=== PATIENT | female | born 1935 | race Caucasian/White ===

== ENCOUNTER 2018-03-14 06:45 | Emergency (ER) | payer MEDICARE, SELFPAY ==
[2018-03-14 06:53] VITALS: BP 177/69; PULSE 61; RESP 16; TEMP 36.7; O2SAT 97
--- NOTE | 2018-03-14 07:21 | ED.GENADUL_ITS ---
Discharge Plan Disposition Patient Disposition: HOME Condition: Good Discharge Details Chief Complaint: RashLesion Clinical Impression: Candidal dermatitis Primary Care Provider: Candie Skaggs ED Provider: Rodolfo Morales [place] Meds and New Rx's Prescriptions: New nystatin 100,000 unit/gram cream 1 applic TP BID Qty: 30 RF: 0 Continued hydrochlorothiazide 25 MG tablet 25 mg PO DAILY RF: 0 irbesartan 150 MG tablet 150 mg PO DAILY RF: 0 aspirin [Aspirin Low-Strength] 81 MG tablet,chewable 81 mg PO DAILY RF: 0 potassium chloride [Klor-Con M20] 20 MEQ tablet,ER particles/crystals 20 meq PO DAILY RF: 0 Discharge Instructions Additional Instructions: Since the rash is worse with cortisone cream, it potentially is fungal (candidal) rash. There are no vesicles or pustules to suggest herpes. Does not appear to be a cellulitis. It is not shingles as it is symmetric on both sides of the body. Will try nystatin cream and have you follow-up with primary care this week. Return to ED for worsening rash, pain, fever, other concerns. Referrals: Candie Skaggs [Primary Care Provider] - Medical Decision Making This appears to be dermatitis but has been made worse and spread with hydrocortisone. There are satellite lesions present. There are no new exposures. It is bilateral so it is clearly not shingles. There are no vesicles or pustules. Satellite lesions suggestive of candidal dermatitis. Will discontinue the hydrocortisone and have her try nystatin cream and follow- up with primary care next week. Return to ED for worsening rash, fever, other concerns. HPI General Mode of arrival: ambulatory . Date/Time Provider Initiated Documentation: 03/14/18 07:03 . Limitations to Documentation: no limitations . Information obtained by: patient . HPI Narrative: Patient presents to ED with rash. Rash has been present for little less than a week. Initially started on the lower part of her back but has progressed down to her buttocks and perineal area. She describes it as burning and itching. It is on both sides of her body. She has use hydrocortisone cream which seems to have made it worse not b ivonne. She has no new exposures. There is no new underwear or clothing. She does not feel ill otherwise. There is been no fevers. Related Data Home Medications Medication Instructions Recorded Confirmed hydrochlorothiazide 25 mg PO DAILY 06/17/12 03/14/18 irbesartan 150 mg PO DAILY 06/17/12 03/14/18 aspirin [Aspirin Low-Strength] 81 mg PO DAILY 05/02/17 03/14/18 nystatin 1 applic TP BID #30 gm 03/14/18 potassium chloride [Klor-Con M20] 20 meq PO DAILY 03/14/18 03/14/18 Previous Rx's Medication Instructions Recorded nystatin 1 applic TP BID #30 gm 03/14/18 Allergies Allergy/AdvReac Type Severity Reaction Status Date / Time codeine [Codeine] AdvReac Mild Nausea Unverified 03/14/18 07:01 General Stated Complaint: RashLesion CARMEN: 4 Review of Systems Constitutional Denies chills and Denies fever(s) Integumentary/Breasts Reports rash [facility] Medical History Anxiety Atypical chest pain Barretts esophagus Diverticulitis Dysphagia GERD (gastroesophageal reflux disease) Hyperlipidemia Hypertension Hypokalemia PE (pulmonary embolism) Surgical History Colonoscopy - IV Sedation EGD - MAC (10/26/14) Social History Smoking/Tobacco Use Status: Never Exam Const General: cooperative, comfortable and no acute distress Orientation: alert and oriented x3 Skin Other: Erythematous, maculopapular, flat, dry rash involving small of her back, buttocks, perirectal area. Associated satellite lesions. Not tender to palpation. No vesicles or pustules. Symmetric on both sides. Course Vital Signs Temperature 98.1 F 03/14/18 06:53 Pulse 61 03/14/18 06:53 Respiratory Rate 16 03/14/18 06:53 Blood Pressure 177/69 H 03/14/18 06:53 Pulse Oximetry 97 03/14/18 06:53 Temperature 98.1 F 03/14/18 06:53 Temperature Source Temporal Artery Scan 03/14/18 06:53 Pulse 61 03/14/18 06:53 Respiratory Rate 16 03/14/18 06:53 Respiratory Effort Non-Labored 03/14/18 06:55 Blood Pressure 177/69 H 03/14/18 06:53 Blood Pressure Position Sitting 03/14/18 06:53 Pulse Oximetry 97 03/14/18 06:53 Oxygen Delivery Method Room Air 03/14/18 06:53 Oxygen Flow Rate 0 03/14/18 06:53 Pain Level 5 03/14/18 06:53
== END 2018-03-14 07:31 | disposition home or self-care (01) ==
PROVIDERS: Emergency Provider Emergency Medicine; PCP Family Medicine
DX: B37.2 Candidiasis of skin and nail (principal); I10 Essential (primary) hypertension
CPT/HCPCS: 99283

== ENCOUNTER 2018-03-15 06:44 | Emergency (ER) | payer MEDICARE, SELFPAY ==
[2018-03-15] VITALS (41 sets, daily range): BP systolic 96–156; BP diastolic 34–73; PULSE 53–79; RESP 11–28; TEMP 36.3–36.8; O2SAT 91–99
--- NOTE | 2018-03-15 07:07 | DI.CT_ITS ---
SYMPTOM/DIAGNOSIS: ABDOMINAL PAIN, N&V CT ABDOMEN AND PELVIS: Comparison is made with 17 Jun 2012. Post IV contrast exam was performed. There is a small pericardial effusion, larger than on previous exam. There are mild dependent changes at the lung bases. The liver, gallbladder, spleen, adrenals and pancreas are unremarkable. Several small cysts are noted in the left kidney. There are no stones or hydronephrosis. The aorta shows calcification but is normal in diameter. There is prominent diverticulosis as well as wall thickening of the sigmoid colon. No surrounding inflammatory changes are visible. There is very little fecal material. A few scattered diverticula are seen in the ascending and transverse colon. The small bowel is nondilated. The stomach is decompressed. There is no free air, free fluid or adenopathy. Calcified uterine fibroids are noted. The bladder is unremarkable. No ovarian cysts or masses are seen. IMPRESSION: Diverticulosis greatest in the sigmoid without evidence of surrounding inflammation. No acute abnormality is seen.
[2018-03-15] MEDS: Lactated Ringers 1,000 ML 1000 ML IV (07:25)
[2018-03-15 07:38] LABS: Abs Immature Grans 0.01 k/cumm (0.0-0.09); Absolute Eosinophil Count 0.13 k/cumm (0.0-0.7); Absolute Lymphocyte Count 0.56 k/cumm (1.2-3.4); Absolute Monocyte Count 0.41 k/cumm (0.11-0.7); Absolute Neutrophil Count 7.24 k/cumm (1.2-6.7); Eosinophils % 1.6; HCT 37.8 % (36.0-46.0); HGB 12.8 g/dL (12.0-15.5); Immature Grans % 0.1; Lymphocytes % 6.7; Mean Corp. HGB Concentration 33.9 g/dL (32.0-36.0); Mean Corpuscular Volume 97.4 fL (80-95); Mean Platelet Volume 9.7 fL (8.0-11.0); Monocytes % 4.9; Neutrophils % 86.7; Platelet Count 248 x1000/uL (130-400); RBC 3.88 m/cumm (4.00-5.20); RBC Distribution Width 13.6 % (11.7-14.6); White Blood Cell Count 8.35 k/cumm (4.4-10.8)
[2018-03-15 07:54] LABS: ALT 28 U/L (12-78); AST 19 U/L (15-37); Albumin 3.5 g/dL (3.4-5.0); Alkaline Phosphatase 50 U/L (46-116); Anion Gap 13.9 mmol/L (3-11); BUN 19 mg/dL (7-18); Bilirubin, Total 0.9 mg/dL (0.2-1.0); CO2 24.1 mmol/L (21.0-32.0); CREATININE 0.97 mg/dL (0.55-1.02); Calcium 8.9 mg/dL (8.5-10.1); Chloride 104 mmol/L (98-107); Estimated GFR 54.98 (mL/min/1.73m2); Glucose 187 mg/dL (70-100); Lipase 130 U/L (73-393); Magnesium 1.7 mg/dL (1.8-2.4); Potassium 3.3 mmol/L (3.5-5.1); Sodium 142 mmol/L (136-145); Total Protein 6.9 g/dL (6.4-8.2)
[2018-03-15 08:02] LABS: Troponin I < 0.02 ng/mL (0.00-0.06)
--- NOTE | 2018-03-15 08:09 | ED.GENADUL_ITS ---
Discharge Plan Disposition Patient Disposition: HOME Condition: Improving Discharge Details Chief Complaint: Nausea/Vomit/Diar Clinical Impression: Acute gastroenteritis Reason For Visit: ARTEMIO Primary Care Provider: Candie Skaggs ED Provider: Manuel Thompson Home Meds and New Rx's Prescriptions: New promethazine 12.5 mg tablet 12.5 mg PO Q6H Qty: 7 RF: 0 Continued irbesartan 150 MG tablet 150 mg PO DAILY RF: 0 aspirin [Aspirin Low-Strength] 81 MG tablet,chewable 81 mg PO DAILY RF: 0 potassium chloride [Klor-Con M20] 20 MEQ tablet,ER particles/crystals 20 meq PO DAILY RF: 0 nystatin 100,000 unit/gram cream 1 applic TP BID Qty: 30 RF: 0 No Action hydrochlorothiazide 25 MG tablet 25 mg PO DAILY RF: 0 Discharge Instructions Instructions: Gastroenteritis (ED) Additional Instructions: Small, frequent sips of fluids to maintain hydration. May use the prescribed Phenergan, if needed for persistent nausea. I recommend you hold your hydrochlorothiazide for 1 dose. Continue all other prescribed medications. We will ask our care management team to arrange an outpatient follow-up with your regular doctor Medical Decision Making 82-year-old female presents from home with her via EMS. She was seen in the emergency room yesterday for a inguinal/vaginal yeast infection for which she received topical antifungal. This is seem to have some mild improvement. She developed the abrupt onset of abdominal cramps, nausea, 4 episodes of nonbilious, nonbloody emesis and one episode of loose, watery diarrhea at home. This improved somewhat with Zofran given en route by EMS. She describes associated lightheadedness and had a brief syncopal event without seizure activity. No chest pain or shortness of breath. She arrives with a blood pressure 113/34, temperature 36, mildly ill-appearing and dehydrated. Given further antiemetics and IV fluids. Broad differential diagnosis considered including gastroenteritis, occult AK, colitis. Laboratories are reassuring with unremarkable CBC, chemistries with discrete hypokalemia of 3.3, negative troponin and unremarkable lipase. CT scan of the abdomen/pelvis: 1. Intermittent bowel wall thickening in the jejunum may represent enteritis including infectious and inflammatory etiologies. 2. Diverticulosis and Bowel wall thickening along the rectosigmoid colon. Mild pericolonic inflammatory changes. No evidence of perforation or abscess formation or bleeding. Findings consistent with acute diverticulitis. 3. mild bowel wall thickening in the right colon and transverse colon and descending colon may represent colitis in the appropriate clinical setting. 4. As an underlying malignancy cannot be entirely excluded, a follow-up examination after a course of treatment is recommended if clinically warranted. Following second liter of fluid, patient tolerated challenge of p.o. fluids. She is somewhat improved. I feel this is most consistent with a viral gastroenteritis. As per the CT reading, she will merit outpatient follow-up. Discussed with the patient and her home management as well as follow-up and return precautions. Lab Data Lab results reviewed: Yes I reviewed the patient's lab results. Laboratory Results - last 24 hr 03/15/18 03/15/18 07:25 07:25 WBC 8.35 RBC 3.88 L Hgb 12.8 Hct 37.8 MCV 97.4 H MCH 33.0 MCHC 33.9 RDW 13.6 Plt Count 248 MPV 9.7 Immature Gran % 0.1 Neutrophils % 86.7 Lymphocytes % 6.7 Monocytes % 4.9 Eosinophils % 1.6 Basophils % 0.0 Absolute Neutrophils 7.24 H Absolute Lymphocytes 0.56 L Absolute Monocytes 0.41 Absolute Eosinophils 0.13 Absolute Basophils 0.00 Sodium 142 Potassium 3.3 L Chloride 104 Carbon Dioxide 24.1 Anion Gap 13.9 H BUN 19 H Creatinine 0.97 Estimated GFR/1.73 m2 54.98 Glucose 187 H Calcium 8.9 Magnesium 1.7 L Total Bilirubin 0.9 AST 19 ALT 28 Alkaline Phosphatase 50 Troponin I < 0.02 Total Protein 6.9 Albumin 3.5 Lipase 130 ECG Data Attestation: I personally reviewed and interpreted this ECG (s) as follows: Interpretation: Sinus rhythm, rate 55, the QRS is narrow, there is no ST segment elevation, unremarkable intervals HPI General Mode of arrival: ambulatory . Date/Time Provider Initiated Documentation: 03/15/18 07:07 . Limitations to Documentation: no limitations . Information obtained by: family and EMS . History of Present Illness 82 year old F presents to the emergency department with the chief complaint of Nausea, vomiting, diarrhea, described as moderate, and is localized to the abdomen. Patient reports no radiation. Patient started experiencing this hour(s) and it has been intermittent. No relieving factors improve symptom(s), No exacerbating factors reported . Patient notes fever/chills and loss of appetite; denies headaches. Patient did receive the following treatments prior to arrival, other (Zofran by EMS) HPI Narrative: Hours of nausea, vomiti ng x4 times, one episode of diarrhea. Seen yesterday for vaginal yeast infection and placed on topical antifungal. No burning, spreading of the rash. No bloating Related Data Home Medications Medication Instructions Recorded Confirmed hydrochlorothiazide 25 mg PO DAILY 06/17/12 03/15/18 irbesartan 150 mg PO DAILY 06/17/12 03/15/18 aspirin [Aspirin Low-Strength] 81 mg PO DAILY 05/02/17 03/15/18 nystatin 1 applic TP BID #30 gm 03/14/18 03/15/18 potassium chloride [Klor-Con M20] 20 meq PO DAILY 03/14/18 03/15/18 promethazine 12.5 mg PO Q6H #7 tab 03/15/18 Previous Rx's Medication Instructions Recorded nystatin 1 applic TP BID #30 gm 03/14/18 promethazine 12.5 mg PO Q6H #7 tab 03/15/18 Allergies Allergy/AdvReac Type Severity Reaction Status Date / Time codeine [Codeine] AdvReac Mild Nausea Unverified 03/15/18 07:44 General Stated Complaint: Nausea/Vomit/Diar CARMEN: 3 Review of Systems Review of Systems 8 systems reviewed and otherwise neck PFSH Medical History Anxiety Atypical chest pain Barretts esophagus Diverticulitis Dysphagia GERD (gastroesophageal reflux disease) Hyperlipidemia Hypertension Hypokalemia PE (pulmonary embolism) Surgical History Colonoscopy - IV Sedation EGD - MAC (10/26/14) Social History Smoking/Tobacco Use Status: Never Exam Narrative Exam Narrative: GEN: awake, alert, oriented 3. Pleasant, well groomed, interactive. HEAD: Normocephalic, atraumatic ENT: Mucous membranes dry, oropharynx unremarkable, External ear exam unremarkable EYES: PERRL, EOMI NECK: Full ROM, no SAIMA, no menigismus CHEST/RESP: Nontender, clear to auscultation bilateral, no wheeze/rhonchi/rales CARDIOVASCULAR: RRR, no murmur, rub cali. 2+ Rad pulse bilateral ABDOMEN: Soft, minimally tender, no mass. +Bowel sounds Skin reveals a beefy red erythematous rash of low back and perineum EXT: Full ROM, no edema, no rash Neuro: Grossly normal neurologic exam, conversant, interactive. Psych: Speech fluent, thoughts congruent, affect normal Course Vital Signs Temperature 36.8 C 03/15/18 06:47 Pulse 56 L 03/15/18 06:47 Respiratory Rate 18 03/15/18 06:47 Blood Pressure 113/34 L 03/15/18 06:47 Pulse Oximetry 98 03/15/18 06:47 Temperature 36.8 C 03/15/18 06:47 Temperature Source Temporal Artery Scan 03/15/18 06:47 Pulse 55 L 03/15/18 07:30 Pulse 60 03/15/18 07:31 Respiratory Rate 21 03/15/18 07:31 Respiratory Effort 03/15/18 06:47 Blood Pressure 123/73 03/15/18 07:30 Blood Pressure Mean 85 03/15/18 07:30 Pulse Oximetry 98 03/15/18 07:31 Oxygen Delivery Method Room Air 03/15/18 06:47 Oxygen Flow Rate 0 03/15/18 06:47 Lab/Test Results Lab/Test Results: Laboratory Tests Range/Units 03/15/18 03/15/18 07:25 07:25 WBC (4.4-10.8) k/cumm 8.35 RBC (4.00-5.20) m/cumm 3.88 L Hgb (12.0-15.5) g/dL 12.8 Hct (36.0-46.0) % 37.8 MCV (80-95) fL 97.4 H MCH (27.0-33.0) pg 33.0 MCHC (32.0-36.0) g/dL 33.9 RDW (11.7-14.6) % 13.6 Plt Count (130-400) x1000/uL 248 MPV (8.0-11.0) fL 9.7 Immature Gran % 0.1 Neutrophils % 86.7 Lymphocytes % 6.7 Monocytes % 4.9 Eosinophils % 1.6 Basophils % 0.0 Absolute Neutrophils (1.2-6.7) k/cumm 7.24 H Absolute Lymphocytes (1.2-3.4) k/cumm 0.56 L Absolute Monocytes (0.11-0.7) k/cumm 0.41 Absolute Eosinophils (0.0-0.7) k/cumm 0.13 Absolute Basophils (0.0-0.2) k/cumm 0.00 Sodium (136-145) mmol/L 142 Potassium (3.5-5.1) mmol/L 3.3 L Chloride (98-107) mmol/L 104 Carbon Dioxide (21.0-32.0) mmol/L 24.1 Anion Gap (3-11) mmol/L 13.9 H BUN (7-18) mg/dL 19 H Creatinine (0.55-1.02) mg/dL 0.97 Estimated GFR/1.73 m2 (mL/min/1.73m2) 54.98 Glucose (70-100) mg/dL 187 H Calcium (8.5-10.1) mg/dL 8.9 Magnesium (1.8-2.4) mg/dL 1.7 L Total Bilirubin (0.2-1.0) mg/dL 0.9 AST (15-37) U/L 19 ALT (12-78) U/L 28 Alkaline Phosphatase (46-116) U/L 50 Troponin I (0.00-0.06) ng/mL < 0.02 Total Protein (6.4-8.2) g/dL 6.9 Albumin (3.4-5.0) g/dL 3.5 Lipase (73-393) U/L 130
[2018-03-15] MEDS: Omnipaque 350 MG/ML 100 ML BTL IV (08:13)
--- NOTE | 2018-03-15 08:55 | NUR.NOTE ---
Nursing Note: Hand Stoner received pertinent report from Monica Boykin RN. Hand Stoner now assuming care of Ms. Ruffin.
--- NOTE | 2018-03-15 09:00 | DI.VRAD_ITS ---
EXAM: CT Abdomen and Pelvis With Contrast EXAM DATE/TIME: 03/15/2018 7:10 AM CLINICAL HISTORY: 82 years old, female; Signs and symptoms; Other: Abdominal pain; N\T\V; Patient HX: Abdominal pain; N\T\V since 4 am , PT was traveling out of the country came back 10 days ago. TECHNIQUE: Axial computed tomography images of the abdomen and pelvis with intravenous contrast. All CT scans at this facility use at least one of these dose optimization techniques: automated exposure control; mA and/or kV adjustment per patient size (includes targeted exams where dose is matched to clinical indication); or iterative reconstruction. Coronal and sagittal reformatted images were created and reviewed. CONTRAST: 100 ml of omnipaque 350 administered intravenously. COMPARISON: CT ABD PELVIS WITH CONTRAST 06/17/2012 7:23 AM FINDINGS: Lower thorax: Bibasilar atelectasis There is calcification of the aortic valve annulus. Small pericardial effusion ABDOMEN: Liver: Hepatomegaly 21 cm No mass. Gallbladder and bile ducts: Normal. No calcified stones. No ductal dilation. Pancreas: Normal. No ductal dilation. Spleen: Normal. No splenomegaly. Adrenals: Normal. No mass. Kidneys and ureters: Left renal cyst 7 mm nodule right kidney 28 Hounsfield units 6 mm nodule right kidney 27 Hounsfield units Stomach and bowel: Intermittent bowel wall thickening in the jejunum may represent enteritis including infectious and inflammatory etiologies. Diverticulosis and Bowel wall thickening along the rectosigmoid colon. Mild pericolonic inflammatory changes. No evidence of perforation or abscess formation or bleeding. Findings consistent with mild acute diverticulitis. Mild bowel wall thickening in the right colon and transverse colon and descending colon may represent colitis in the appropriate clinical setting. Appendix: No evidence of appendicitis. PELVIS: Bladder: Unremarkable as visualized. Reproductive: Calcified fibroids in the uterus. ABDOMEN and PELVIS: Intraperitoneal space: Normal. No free air. No significant fluid collection. Bones/joints: No acute fracture. No dislocation. Soft tissues: Unremarkable. Vasculature: Normal. No abdominal aortic aneurysm. Lymph nodes: Normal. No enlarged lymph nodes. Other findings: As an underlying malignancy cannot be entirely excluded, a follow-up examination after a course of treatment is recommended if clinically warranted. IMPRESSION: 1. Intermittent bowel wall thickening in the jejunum may represent enteritis including infectious and inflammatory etiologies. 2. Diverticulosis and Bowel wall thickening along the rectosigmoid colon. Mild pericolonic inflammatory changes. No evidence of perforation or abscess formation or bleeding. Findings consistent with acute diverticulitis. 3. mild bowel wall thickening in the right colon and transverse colon and descending colon may represent colitis in the appropriate clinical setting. 4. As an underlying malignancy cannot be entirely excluded, a follow-up examination after a course of treatment is recommended if clinically warranted. Dictated and Authenticated by: Krystal Casarez MD. Ordering:ENOC Reynolds MD
[2018-03-15] MEDS: Normal Saline Flush 10 ML SYR IVP (09:23)
--- NOTE | 2018-03-15 10:52 | NUR.NOTE ---
Nursing Note: IV site checked. No s/s of infiltration/irritation. Patient has been resting quietly, without complaint. Please note: PIV had +blood return on check prior to start of D5LR with KCL bag.
--- NOTE | 2018-03-15 11:50 | NUR.NOTE ---
Nursing Note: Voiced need to void. Able to stand and pivot to BSC with stand by assist. Denied dizziness, but feels weak. Void 550cc without difficulty.
[2018-03-15 12:10] LABS: Bilirubin Negative (Negative); Blood Small (Negative); Clarity Clear; Glucose Negative (Negative); Ketones Negative (Negative); Leukocyte Esterase Negative (Negative); Nitrite Negative (Negative); Urobilinogen 0.2 EU/dL (Up TO 0.2); pH 5.5 (5-8)
[2018-03-15 12:20] LABS: Bacteria Negative HPF (Negative); C & S Indicated? No; Casts Negative LPF (Negative); Crystals Negative HPF (Negative); Epithelial Cells Rare HPF (Negative); Mucus Negative (Negative); WBC 0-2 HPF (0-5)
--- NOTE | 2018-03-15 12:57 | NUR.NOTE ---
Nursing Note: OK to eat per Dr. Thompson. Ms. Ruffin requesting soup only. Able to sit up at stretcher edge with minimal assist to eat soup. bedside.
[2018-03-15] MEDS: Nystatin CREAM 15 GM TUBE TP (13:07)
--- NOTE | 2018-03-15 13:50 | NUR.NOTE ---
Nursing Note: Ate 100% soup. Reports feeling better compared to time of admit, still weak. +burping. Rates nausea 1 or 2
--- NOTE | 2018-03-16 11:24 | PDOC.ERCMPRO ---
Care Management Progress Note 03/15-Dr. Thompson requested assistance with a PCP (Ela Jarrell) f/u this week for enteritis. Called Dr. Skaggs's office, spoke with Raya, and they have scheduled Adriana for Friday, 03/20. Raya will notify patient of appt.
== END 2018-03-15 14:03 | disposition home or self-care (01) ==
PROVIDERS: Emergency Medicine; Emergency Provider Emergency Medicine; PCP Family Medicine
DX: K52.9 Noninfective gastroenteritis and colitis, unspecified (principal); R55 Syncope and collapse
CPT/HCPCS: 36415; 80053; 83690; 93005; 96361; 96365; 99285; 74177; 81003; 81015; 83735; 84484; 85025; 93010; 99284; J3490

== ENCOUNTER 2019-09-17 02:23 | Outpatient (CLI) | payer MEDICARE, SELFPAY ==
[2019-09-17 13:02] LABS: Anion Gap 7.2 mmol/L (3-11); BUN 19 mg/dL (7-18); CO2 28.8 mmol/L (21.0-32.0); CREATININE 0.96 mg/dL (0.55-1.02); Calcium 9.3 mg/dL (8.5-10.1); Calculated LDL 156 mg/dL (<100); Chloride 105 mmol/L (98-107); Cholesterol 232 mg/dL (<200); Glucose 104 mg/dL (74-106); HDL Cholesterol 48 mg/dL (40-60); Potassium 3.5 mmol/L (3.5-5.1); Sodium 141 mmol/L (136-145); Triglyceride 141 mg/dL (<150)
[2019-09-17 13:04] LABS: Hemoglobin A1C 5.9 % (3.8-5.6)
== END 2019-09-17 02:43 ==
PROVIDERS: PCP Family Medicine; Visit Provider Family Medicine
DX: R73.03 Prediabetes (principal); I10 Essential (primary) hypertension; E78.5 Hyperlipidemia, unspecified
CPT/HCPCS: 36415; 80048; 80061; 83036

== ENCOUNTER 2020-02-17 01:19 | Outpatient (CLI) | payer MEDICARE, SELFPAY ==
--- NOTE | 2020-02-17 | DI.RAD_ITS ---
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 TECHNIQUE: 2D digital imaging was performed. COMPARISON: CT ABD PELVIS WITH CONTRAST from 06/17/2012 CT ABD PELVIS WITH CONTRAST from 06/17/2012 FINDINGS: There is no evidence of compression fracture or listhesis nor pars defects and there is no lumbar sco liosis. There is no disc space narrowing. No osseous lesions. There is significant degenerative changes in the facet joints at L5-S1 level. Mild degenerative rose ges evident in the facet joints at L4-5 level. Sacroiliac joints appear unremarkable. There are degenerative changes in the hips, more prominent on the left side. Central lower pelvic calcifications probably within a uterine fibroid. IMPRESSION: Facet arthrosis L5-S1 no pars interarticularis defects. No obvious listhesis. No disc space narrowing. DATA REPOSITORY: RADIATION DOSE DELIVERED:
== END 2020-02-17 01:39 ==
PROVIDERS: PCP Family Medicine; Visit Provider Family Medicine
DX: M12.88 Other specific arthropathies, not elsewhere classified, other specified site (principal); M54.16 Radiculopathy, lumbar region
CPT/HCPCS: 72110

== ENCOUNTER 2020-02-25 17:13 | Outpatient (REF) | payer MEDICARE, SELFPAY ==
[2020-02-25 20:41] LABS: Abs Immature Grans 0.07 10^3/uL (0.0-0.06); Absolute Basophil Count 0.07 10^3/uL (0.0-0.2); Absolute Lymphocyte Count 1.68 10^3/uL (1.2-3.4); Absolute Monocyte Count 0.52 10^3/uL (0.1-0.8); Basophils % 0.5; HGB 12.1 g/dL (11.2-15.7); Immature Grans % 0.5; Lymphocytes % 12.6; MCH 31.8 pg (27.0-33.0); MCHC 32.7 % (32.0-36.0); MCV 97.1 fL (80-95); Monocytes % 3.9; Neutrophils % 81.5; Nucleated RBC 0 %; Platelet Count 393 10^3/uL (130-400); RBC 3.81 10^6/uL (3.93-5.22); RDW 12.8 % (11.7-14.6); RDW-SD 45.8 fL; WBC 13.37 10^3/uL (4.4-10.8)
[2020-02-25 20:44] LABS: Absolute Eosinophil Count 0.13 10^3/uL (0.0-0.7)
[2020-02-25 20:45] LABS: Anion Gap 9.8 mmol/L (3-11); BUN 15 mg/dL (7-18); C-Reactive Protein 2.41 mg/dL (0.0-0.3); CO2 27.2 mmol/L (21.0-32.0); CREATININE 0.92 mg/dL (0.55-1.02); Calcium 9.3 mg/dL (8.5-10.1); Chloride 103 mmol/L (98-107); Estimated GFR 58.16 (mL/min/1.73m2); Glucose 96 mg/dL (74-106); Potassium 3.8 mmol/L (3.5-5.1); Sodium 140 mmol/L (136-145)
[2020-02-25 20:51] LABS: Hemoglobin A1C 6.2 % (<5.7)
[2020-02-25 21:49] LABS: ESR 52 mm/hr (0-30)
== END 2020-02-25 17:33 ==
LOC: NCHCN 17:13
PROVIDERS: PCP Family Medicine; Visit Provider Family Medicine
DX: R53.83 Other fatigue (principal); R06.09 Other forms of dyspnea; R73.03 Prediabetes; M79.604 Pain in right leg; M79.605 Pain in left leg
CPT/HCPCS: 80048; 85652; 83036; 85025; 86140

== ENCOUNTER 2020-06-22 16:47 | Emergency (ER) | payer MEDICARE, SELFPAY ==
[2020-06-22] VITALS (36 sets, daily range): BP systolic 162–229; BP diastolic 67–183; PULSE 54–78; RESP 11–23; TEMP 36.5; O2SAT 94–98
--- NOTE | 2020-06-22 16:45 | RT.EKG_ITS ---
APPROVED REPORT Exam: Resting ECG Reason for Exam: SOB Patient Location: E HR:57 bpm ECG Measurements Heart Rate 57 AXIS PA 143 P 56 QRSd 93 QRS 5 QT 439 T 36 QTc 427 Conclusion Sinus bradycardia...rate< 60
--- NOTE | 2020-06-22 17:00 | DI.CT_ITS ---
Exam(s) CT CHEST PE CTA EXAM: CT CHEST PE CTA CLINICAL HISTORY: cp/sob, hx of PE. TECHNIQUE: Imaging Protocol: Axial CT angiography was performed with multi-slice acquisition and mu lti-planar and/or 3D reconstructions. CONTRAST MATERIAL: Intravenous: Omnipaque 350 Contrast volume:82 mL COMPARISON: CT CT ABDOMEN PELVIS W from 03/15/2018 FINDINGS: Tracheobronchial tree: Patent where visualized. Pulmonary parenchyma: No consolidation or dominant measurable mass. No architectural distortion. Depe ndent atelectasis. Pulmonary Arteries: There are filling defects to pulmonary artery branches to all 5 lobes consistent with pulmonary emboli. There is no evidence of a saddle embolus. Mediastinum and Sanna: No dominant adenopathy or fluid collection. Visualized thyroid gland: Unremarkable. Pleura: No effusion or pneumothorax. Heart: Mild cardiomegaly. Mild coronary artery calcification. No evidence of right heart strain. S mall pericardial effusion. Aorta: Thoracic aorta non-dilated. Atherosclerosis. No evidence of dissection. Upper abdomen: Unremarkable. Soft tissues: Unremarkable. Bones: Normal. IMPRESSION: 1. Bilateral pulmonary emboli. No evidence of right heart strain. 2. Mild cardiomegaly. 3. No evidence of aortic dissection or aneurysm. RADIATION DOSE DELIVERED: 315.94mGy.cm Total DLP DATA REPOSITORY: All CT scans at this facility are submitted to the National Radiology Data Registry (NRDR) Dose Index Registry (DIR) with the [employer] (ACR). RADIATION OPTIMIZATION: All CT scans at this facility use at least one of these dose optimization te chniques: automated exposure control; mA and/or kV adjustment per patient size (includes targeted exa ms where dose is matched to clinical indication); or iterative reconstruction.
--- NOTE | 2020-06-22 17:00 | ED.GENADUL_ITS ---
Discharge Plan Disposition Patient Disposition: HOME Condition: Stable Discharge Details Clinical Impression: Pulmonary embolism Primary Care Provider: Candie Skaggs ED Provider: Lester Ceron Home Meds and New Rx's Prescriptions: New warfarin 5 mg tablet 5 mg PO DAILY 5 Days Qty: 5 RF: 0 enoxaparin [Lovenox] 80 mg/0.8 mL syringe 70 mg subcut Q12H 5 Days Qty: 7 RF: 0 Continued hydrocortisone valerate 0.2 % cream 1 applic topical DAILY PRNRF: 0 estradiol 0.01 % (0.1 mg/gram) cream 1 g vaginal .COMPLEX Qty: 42.5 RF: 5 clobetasol 0.05 % ointment 1 applic topical DAILY Qty: 60 RF: 5 prednisone 5 mg tablet 5 mg PO DAILY RF: 0 prednisone 1 mg tablet 1 mg PO DAILY RF: 0 losartan-hydrochlorothiazide 100-12.5 mg tablet 1 tab PO HS RF: 0 potassium chloride 20 mEq tablet extended release 20 meq PO RF: 0 aspirin 81 mg Tablet,Delayed Release (Dr/Ec) 162 mg PO PRN PRNRF: 0 Discharge Instructions Instructions: Pulmonary Embolism (ED) Additional Instructions: At this time your CT imaging reveals bilateral pulmonary embolism. I have offered you admission, you spoke with Dr. Bolden, and have subsequently declined admission. We discussed treatment options, you are most comfortable with Lovenox and Coumadin. I am providing you a prescription for the next 5 days. Take this medication as directed. As we discussed, this will increase your risk of bleeding and therefore I stressed the importance of return to the ER for mild fall, MVA, trauma, etc. Please watch for new or worsening symptoms and return to the ER for any concerns. I have placed you on the care management lis t to help expedite outpatient primary care follow-up on Friday. It is imperative that you follow-up with your primary care provider as I am only giving you a total of 5 days worth of medication and you will need to have your INR levels checked to be sure they are appropriate and then will discontinue the Lovenox. I would like you to contact your primary care provider tomorrow to discuss your ER visit and need for outpatient reevaluation. Medical Decision Making 84-year-old female presents to the ER reporting chest pain reported as epigastr ic discomfort, GERD, shortness of breath worse with exertion over the past few days. Has a history of PE 15 years ago. She is not anticoagulated. Denies pain or swelling in her legs. She already took 2 baby aspirin today. Clinically she appears well, nontoxic. Pulse in the 60s, O2 sat 97% on room air. Differential includes not excluded to pneumonia, PE, ACS, CHF, dissection, etc. Patient will be given an additional 2 baby aspirin and I will initiate cardiac work-up. Will defer D-dimer and go directly to CTA. Laboratory values are unremarkable for obvious emergent process. Potassium was 3.1. There are no EKG changes consistent with hypokalemia. Will be given 40 p.o. and 10 IV potassium. Creatinine 1.1 with a GFR of 47.32. Troponin less than 0.05. BNP 120. CTA reveals pulmonary emboli within segmental branches of the pulmonary arteries bilaterally. Mild cardiomegaly. No evidence for right heart strain. Repeat troponin remains less than 0.05. Discussed findings with the patient. Patient became anxious and tearful. She began to hyperventilate and reports that her shortness of breath is worsening. I discussed work-up both with patient and family. After using shared decision making and risk stratification, patient and are preferring that she be admitted. It should be noted that she did present to the ER with mild-moderate hypertension but after she became anxious her blood pressure went up to 229/83 and 219/107. Patient reports that she typically takes her antihypertensive medications in the evening. After we discussed treatment options in length and she was no longer anxious, her blood pressure did begin to trend downward, 180/78. We discussed treatment options, both patient and her would prefer Lovenox and Coumadin given this is what she did 15 years ago and they are comfortable with those medications. She will be given 1 mg/kg subcu Lovenox and a single dose of 5 mg p.o. Coumadin. I discussed the case with our hospitalist team, Dr. Bolden, who was planning to come evaluate the ER and the patient. He did evaluate the patient, please see his note. Upon his evaluation apparently patient and have been talking on the phone and they would prefer now to be discharged home. I will provide a prescription for both of her medications for the next 5 days, place her on the care management list to help expedite outpatient care on Friday with her primary care provider, she understands the need for INR checks. Patient was encouraged to return to the ER for new or worsening symptoms. She was given standard discharge and return precautions. Medical Records Medical records reviewed: Yes I reviewed the patient's medical records. Lab Data Lab results reviewed: Yes I reviewed the patient's lab results. Labs: Laboratory Tests Range/Units 06/22/20 06/22/20 06/22/20 17:05 17:05 17:05 WBC (4.4-10.8) 10^3/uL 10.45 RBC (3.93-5.22) 10^6/uL 3.90 L Hgb (11.2-15.7) g/dL 12.9 Hct (36.0-46.0) % 38.9 MCV (80-95) fL 99.7 H MCH (27.0-33.0) pg 33.1 H MCHC (32.0-36.0) % 33.2 RDW (11.7-14.6) % 13.3 Plt Count (130-400) 10^3/uL 272 MPV (8.0-11.0) fL 10.0 Immature Gran % 0.5 Neutrophils % 82.9 Lymphocytes % 11.8 Monocytes % 3.3 Eosinophils % 1.1 Basophils % 0.4 Nucleated RBC % % 0 Absolute Neutrophils (1.2-6.7) 10^3/uL 8.67 H Absolute Lymphocytes (1.2-3.4) 10^3/uL 1.23 Absolute Monocytes (0.1-0.8) 10^3/uL 0.35 Absolute Eosinophils (0.0-0.7) 10^3/uL 0.11 Absolute Basophils (0.0-0.2) 10^3/uL 0.04 PT (9.3-11.0) sec 10.3 INR (0.9-1.1) 1.0 APTT (21.0-27.5) sec 20.7 L Sodium (136-145) mmol/L 142 Potassium (3.5-5.1) mmol/L 3.1 L Chloride (98-107) mmol/L 104 Carbon Dioxide (21.0-32.0) mmol/L 28.5 Anion Gap (3-11) mmol/L 9.5 BUN (7-18) mg/dL 21 H Creatinine (0.55-1.02) mg/dL 1.1 H Estimated GFR/1.73 m2 (mL/min/1.73m2) 47.32 Glucose (74-106) mg/dL 164 H Calcium (8.5-10.1) mg/dL 9.4 Magnesium (1.8-2.4) mg/dL 2.0 Total Bilirubin (0.2-1.0) mg/dL 0.7 AST (15-37) U/L 15 ALT (14-59) U/L 31 Alkaline Phosphatase (46-116) U/L 44 L Troponin I (<0.06) ng/mL < 0.05 NT-Pro-B Natriuret Pep (<300) pg/mL 120 Total Protein (6.4-8.2) g/dL 7.3 Albumin (3.4-5.0) g/dL 3.7 Lipase (73-393) U/L Range/Units 06/22/20 06/22/20 17:05 20:10 WBC (4.4-10.8) 10^3/uL RBC (3.93-5.22) 10^6/uL Hgb (11.2-15.7) g/dL Hct (36.0-46.0) % MCV (80-95) fL MCH (27.0-33.0) pg MCHC (32.0-36.0) % RDW (11.7-14.6) % Plt Count (130-400) 10^3/uL MPV (8.0-11.0) fL Immature Gran % Neutrophils % Lymphocytes % Monocytes % Eosinophils % Basophils % Nucleated RBC % % Absolute Neutrophils (1.2-6.7) 10^3/uL Absolute Lymphocytes (1.2-3.4) 10^3/uL Absolute Monocytes (0.1-0.8) 10^3/uL Absolute Eosinophils (0.0-0.7) 10^3/uL Absolute Basophils (0.0-0.2) 10^3/uL PT (9.3-11.0) sec INR (0.9-1.1) APTT (21.0-27.5) sec Sodium (136-145) mmol/L Potassium (3.5-5.1) mmol/L Chloride (98-107) mmol/L Carbon Dioxide (21.0-32.0) mmol/L Anion Gap (3-11) mmol/L BUN (7-18) mg/dL Creatinine (0.55-1.02) mg/dL Estimated GFR/1.73 m2 (mL/min/1.73m2) Glucose (74-106) mg/dL Calcium (8.5-10.1) mg/dL Magnesium (1.8-2.4) mg/dL Total Bilirubin (0.2-1.0) mg/dL AST (15-37) U/L ALT (14-59) U/L Alkaline Phosphatase (46-116) U/L Troponin I (<0.06) ng/mL < 0.05 NT-Pro-B Natriuret Pep (<300) pg/mL Total Protein (6.4-8.2) g/dL Albumin (3.4-5.0) g/dL Lipase (73-393) U/L 226 ECG Data Attestation: I personally reviewed and interpreted this ECG (s) as follows: Interpretation: Please see official report by Dr. Thompson. Sinus bradycardia, ventricular to 57. No STEMI. HPI General Mode of arrival: ambulatory . Date/Time Provider Initiated Documentation: 06/22/20 16:49 . Limitations to Documentation: no limitations . Information obtained by: patient . HPI Narrative: This is an 84-year-old female with a past medical history that includes anxiety, atypical chest pain, Haque's esophagus, dysphagia, GERD, hyperlipidemia, hypertension, PE approximately 15 years ago, not anticoagulated. Patient presents to the ER with multiple complaints today. Patient states that on Friday she was walking, developed shortness of breath, increased burping, worsening GERD, and symptoms are typically worse after eating. She initially said that she was having some chest pain but when pointing to her discomfort, she points to her epigastric region. She denies recent illness or trauma. She denies fever, headache, cough, back pain, lower abdominal pain, nausea, vomiting, change in bowel or bladder function, pain or swelling in her legs, numbness, tingling, weakness. Patient states that she has noticed that her acid reflux symptoms are also worse when laying down after sleeping for several hours. She occasionally takes [id number] Pepcid for her acid reflux-like symptoms. Patient took 2 baby aspirin this morning. She states that she had a similar episode of symptoms approximately 2 years ago when she was in [place], she was diagnosed with edema. Related Data Home Medications Medication Instructions Recorded Confirmed clobetasol 0.05 % topical ointment 1 applic TOPICAL DAILY #60 g 12/16/19 06/22/20 estradiol 1 g VAGINAL .COMPLEX #42.5 g 12/16/19 06/22/20 hydrocortisone valerate 0.2 % 1 applic TOPICAL DAILY PRN g 12/16/19 06/22/20 topical cream aspirin 162 mg PO PRN PRN 06/22/20 06/22/20 enoxaparin [Lovenox] 70 mg SUBCUT Q12H 5 Days #7 ml 06/22/20 losartan-hydrochlorothiazide 1 tab PO HS 06/22/20 06/22/20 potassium chloride 20 meq PO 06/22/20 prednisone 1 mg PO DAILY 06/22/20 06/22/20 prednisone 5 mg PO DAILY 06/22/20 06/22/20 warfarin 5 mg PO DAILY 5 Days #5 tab 06/22/20 Previous Rx's Medication Instructions Recorded clobetasol 0.05 % topical ointment 1 applic TOPICAL DAILY #60 g 12/16/19 estradiol 1 g VAGINAL .COMPLEX #42.5 g 12/16/19 enoxaparin [Lovenox] 70 mg SUBCUT Q12H 5 Days #7 ml 06/22/20 warfarin 5 mg PO DAILY 5 Days #5 tab 06/22/20 Allergies Allergy/AdvReac Type Severity Reaction Status Date / Time codeine [Codeine] AdvReac Mild Nausea Unverified 06/22/20 16:58 General Stated Complaint: Chest Pain CARMEN: 2 Review of Systems Constitutional Constitutional: Denies fatigue, Denies fever(s), Denies headache(s) and Denies weakness Eyes Eyes: Denies change in vision ENT Ears, Nose, Mouth, and Throat: Denies headache(s) and Denies neck pain Cardiovascular Cardiovascular: Reports chest pain (Points to epigastrium) and Reports dyspnea Respiratory Respiratory: Denies cough and Reports dyspnea Gastrointestinal Gastrointestinal: Denies constipation, Denies diarrhea, Denies nausea and Denies vomiting Genitourinary Genitourinary: Denies dysuria Musculoskeletal Musculoskeletal: Denies back pain, Denies neck pain, Denies numbness, Denies stiffness and Denies tingling Integumentary/Breasts Skin/Breast: Denies rash Neurologic Neurologic: Denies headache(s), Denies numbness, Denies tingling and Denies weakness Endocrine Endocrine: Denies fatigue Hematologic/Lymphatic Hematologic/Lymphatic: Denies easy bleeding and Denies easy bruising [facility] Medical History Anxiety Atrophic vaginitis Atypical chest pain 05/02/17- [facility] 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 [place]. Exam Const General: cooperative, healthy appearing, comfortable and no acute distress Orientation: alert, awake and oriented x3 HENMT Head: normal to inspection, normocephalic and atraumatic Face and sinus: normal facial exam Mouth: moist mucous membranes Eyes General: appearance normal, both eyes and all related structures Conjunctivae: conjunctivae normal Neck Neck: normal visual inspection, full ROM, trachea midline and supple Chest Chest: normal inspection of the chest and normal palpation of entire chest wall Resp Effort & Inspection: normal respiratory effort and able to speak in complete sentences Auscultation: clear to auscultation bilaterally Cardio Rate: regular rate Rhythm: regular rhythm GI Inspection: normal to inspection Palpation: soft, not firm, no guarding, no pulsatile masses and tender in the epigastrum (Mild); Maradiaga's sign negative and with no rebound tenderness Auscultation: normal bowel sounds Back/Spine/Pelvis Back: No back tenderness Skin General skin exam: no rashes or lesions noted Neuro General: patient alert, patient awake, moves all extremities and no focal motor deficits Cognition: normal cognition Speech: speech normal Gait: normal gait Motor: muscle tone normal throughout Sensory Exam: no sensory deficits noted Extrem General: normal to inspection, full ROM, capillary refill normal, no pedal edema and no calf tenderness Psych Appearance: grossly normal Mental Status: mental status grossly normal
[2020-06-22] MEDS: Aspirin 81 MG CHEW 324 MG CH (17:10)
[2020-06-22 17:27] LABS: Abs Immature Grans 0.05 10^3/uL (0.0-0.06); Absolute Basophil Count 0.04 10^3/uL (0.0-0.2); Absolute Eosinophil Count 0.11 10^3/uL (0.0-0.7); Absolute Lymphocyte Count 1.23 10^3/uL (1.2-3.4); Absolute Monocyte Count 0.35 10^3/uL (0.1-0.8); Absolute Neutrophil Count 8.67 10^3/uL (1.2-6.7); Basophils % 0.4; Eosinophils % 1.1; HCT 38.9 % (36.0-46.0); HGB 12.9 g/dL (11.2-15.7); Immature Grans % 0.5; Lymphocytes % 11.8; MCH 33.1 pg (27.0-33.0); MCHC 33.2 % (32.0-36.0); MCV 99.7 fL (80-95); Monocytes % 3.3; Neutrophils % 82.9; Nucleated RBC 0 %; Platelet Count 272 10^3/uL (130-400); RDW 13.3 % (11.7-14.6); RDW-SD 48.7 fL; WBC 10.45 10^3/uL (4.4-10.8)
[2020-06-22] MEDS: Pantoprazole 40 MG VIAL IVP (17:34)
[2020-06-22 17:44] LABS: PTT Activated 20.7 sec (21.0-27.5); Prothrombin Time 10.3 sec (9.3-11.0)
[2020-06-22 17:50] LABS: ALT 31 U/L (14-59); AST 15 U/L (15-37); Albumin 3.7 g/dL (3.4-5.0); Alkaline Phosphatase 44 U/L (46-116); Anion Gap 9.5 mmol/L (3-11); BUN 21 mg/dL (7-18); Bilirubin, Total 0.7 mg/dL (0.2-1.0); CO2 28.5 mmol/L (21.0-32.0); CREATININE 1.1 mg/dL (0.55-1.02); Calcium 9.4 mg/dL (8.5-10.1); Chloride 104 mmol/L (98-107); Estimated GFR 47.32 (mL/min/1.73m2); Glucose 164 mg/dL (74-106); NT-proBNP 120 pg/mL (<300); Potassium 3.1 mmol/L (3.5-5.1); Sodium 142 mmol/L (136-145); Total Protein 7.3 g/dL (6.4-8.2)
[2020-06-22 18:06] LABS: Lipase 226 U/L (73-393)
[2020-06-22 18:07] LABS: Troponin I < 0.05 ng/mL (<0.06)
[2020-06-22] MEDS: Omnipaque 350 MG/ML 100 ML BTL IJ (18:38)
[2020-06-22] MEDS: Normal Saline - Diluent 50 ML VIAL IV (18:39)
[2020-06-22] MEDS: Potassium Chloride 20 MEQ TABCR 40 MEQ PO (18:57)
[2020-06-22] MEDS: POTASSIUM CHLORIDE 10 MEQ/100 ML BAG 100 MEQ IVPB (18:59)
--- NOTE | 2020-06-22 19:00 | DI.VRAD_ITS ---
Addendum created by Myke Vu MD on 06/22/2020 7:04:29 PM EDT: THIS REPORT CONTAINS FINDINGS THAT MAY BE CRITICAL TO PATIENT CARE. The findings were verbally communicated via telephone conference with Lester Ceron at 7:04 PM EDT on 06/22/2020. The findings were acknowledged and understood. Initial report created on 06/22/2020 7:00:38 PM EDT: PROCEDURE INFORMATION: Exam: CTA Chest With Contrast Exam date and time: 06/22/2020 5:05 PM Age: 84 years old Clinical indication: Shortness of breath; Patient HX: HX pe TECHNIQUE: Imaging protocol: Computed tomographic angiography of the chest with contrast. 3D rendering (Not supervised by radiologist): MIP and/or 3D reconstructed images were created by the technologist. COMPARISON: CR PORTABLE CHEST ONE VIEW 05/02/2017 12:22 PM FINDINGS: Pulmonary arteries: Pulmonary emboli within segmental branches of the right lower lobe, right middle lobe, left lower lobe, left upper lobe. Aorta: Atherosclerotic thoracic aorta. Lungs: Bilateral changes of fibrosis with interlobular septal thickening. Nonspecific bilateral dependent pleuroparenchymal changes. Pleural spaces: Unremarkable. No pneumothorax. No pleural effusion. Heart: Mild cardiomegaly. Small pericardial effusion. Coronary arterial calcifications. Lymph nodes: Unremarkable. No enlarged lymph nodes. Bones/joints: Unremarkable. No acute fracture. Soft tissues: Unremarkable. IMPRESSION: Pulmonary emboli within segmental branches of the pulmonary arteries bilaterally. Mild cardiomegaly. No evidence for right heart strain. See the body of the report for the remainder of ancillary findings. Dictated and Authenticated by: Myke Vu MD. Ordering:TRESA Batista MD
[2020-06-22] MEDS: Normal Saline 1,000 ML 150 ML IV (19:05)
[2020-06-22] MEDS: Warfarin 5 MG TAB PO (20:13)
[2020-06-22] MEDS: Enoxaparin 80 MG/0.8 ML SYR 70 MG SC (20:14)
[2020-06-22 20:31] LABS: Troponin I < 0.05 ng/mL (<0.06)
--- NOTE | 2020-06-22 21:38 | NUR.NOTE ---
Referral faxed to [facility] Dr. Candie Skaggs [phone] to f/u on Friday June 26, 2020 for bilateral PE's.Nursing Note:
== END 2020-06-22 21:42 | disposition home or self-care (01) ==
PROVIDERS: Emergency Provider Physician Assistant; PCP Family Medicine
DX: I26.99 Other pulmonary embolism without acute cor pulmonale (principal); Z86.711 Personal history of pulmonary embolism
CPT/HCPCS: 71275; 80053; 83690; 93005; 96361; 96365; 96372; 96375; 99285; 83735; 83880; 84484; 85025; 85610; 85730; 93010; 99284; J1650; J3480; J3490

== ENCOUNTER 2020-07-12 15:50 | Outpatient (REF) | payer MEDICARE, SELFPAY ==
[2020-07-12 22:02] LABS: INR 3.9 (0.9-1.1); Prothrombin Time 37.8 sec (9.3-11.0)
== END 2020-07-12 15:51 | disposition home or self-care (01) ==
LOC: NCHCN 15:50
PROVIDERS: PCP Family Medicine; Visit Provider Family Medicine
DX: I26.99 Other pulmonary embolism without acute cor pulmonale (principal); Z79.01 Long term (current) use of anticoagulants
CPT/HCPCS: 85610

== ENCOUNTER 2020-07-17 12:47 | Outpatient (REF) | payer MEDICARE, SELFPAY ==
[2020-07-17 13:16] LABS: INR 1.2 (0.9-1.1)
[2020-07-17 13:18] LABS: Prothrombin Time 12.3 sec (9.3-11.0)
== END 2020-07-17 12:48 | disposition home or self-care (01) ==
LOC: LBN 12:47
PROVIDERS: PCP Family Medicine; Visit Provider Nurse Practitioner Family
DX: Z79.01 Long term (current) use of anticoagulants; I26.99 Other pulmonary embolism without acute cor pulmonale
CPT/HCPCS: 85610

== ENCOUNTER 2020-08-01 14:49 | Outpatient (REF) | payer MEDICARE, SELFPAY ==
[2020-08-03 13:18] LABS: Helicobacter pylori Ag, Feces Negative (Negative)
== END 2020-08-01 14:50 | disposition home or self-care (01) ==
LOC: NCHCN 14:49
PROVIDERS: PCP Family Medicine; Visit Provider Family Medicine
DX: R11.10 Vomiting, unspecified (principal)
CPT/HCPCS: 87338

== ENCOUNTER 2020-08-11 09:36 | Outpatient (CLI) | payer MEDICARE, SELFPAY ==
[2020-08-11 14:44] LABS: INR 1.5 (0.9-1.1); Prothrombin Time 14.8 sec (9.3-11.0)
[2020-08-11 15:03] LABS: Anion Gap 10.7 mmol/L (3-11); BUN 20 mg/dL (7-18); CO2 27.3 mmol/L (21.0-32.0); CREATININE 1.1 mg/dL (0.55-1.02); Calcium 9.4 mg/dL (8.5-10.1); Chloride 106 mmol/L (98-107); Estimated GFR 47.32 (mL/min/1.73m2); Glucose 130 mg/dL (74-106); Potassium 3.7 mmol/L (3.5-5.1); Sodium 144 mmol/L (136-145)
== END 2020-08-11 09:37 | disposition home or self-care (01) ==
LOC: LBO 09:59
PROVIDERS: PCP Family Medicine; Visit Provider Family Medicine
DX: I26.99 Other pulmonary embolism without acute cor pulmonale (principal); Z79.01 Long term (current) use of anticoagulants; Z86.39 Personal history of other endocrine, nutritional and metabolic disease
CPT/HCPCS: 36415; 80048; 85610

== ENCOUNTER 2020-12-12 15:48 | Outpatient (REF) | payer MEDICARE, SELFPAY ==
[2020-12-12 22:33] LABS: COMMENT (LAB VIEW ONLY) 117.01 mg/dL; Microalb ug/mg Crea 20.3 ug/mg Cr
== END 2020-12-12 15:49 | disposition home or self-care (01) ==
LOC: NCHCN 15:48
PROVIDERS: PCP Family Medicine; Visit Provider Family Medicine
DX: E11.9 Type 2 diabetes mellitus without complications (principal)
CPT/HCPCS: 82043; 82570

== ENCOUNTER 2020-12-18 01:09 | Outpatient (CLI) | payer MEDICARE, SELFPAY ==
--- NOTE | 2020-12-18 11:00 | DI.RAD_ITS ---
Exam(s) XR HIP RT COMPLETE AP PELVIS EXAM: XR HIP RT COMPLETE AP PELVIS CLINICAL HISTORY: RT HIP PAIN, M25.551. TECHNIQUE: 2D digital imaging was performed. COMPARISON: CT ABD PELVIS WITH CONTRAST from 06/17/2012 CT ABD PELVIS WITH CONTRAST from 06/17/[address] CHEST PE CTA from 06/22/2020 FINDINGS: No evidence of pelvic nor hip fracture. However, there is significant narrowing of both hip joints a nd marginal osteophytes of femoral necks bilaterally. Sacroiliac joints appear unremarkable. Incide ntally noted is calcific density in the central pelvis measuring 1.7 x 1.8 cm consistent with a calci fied uterine fibroid, as seen on CT scan of June 2012. 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 No fractures. DATA REPOSITORY: RADIATION DOSE DELIVERED:
== END 2020-12-18 01:29 ==
PROVIDERS: PCP Family Medicine; Visit Provider Family Medicine
DX: M25.551 Pain in right hip (principal); M16.0 Bilateral primary osteoarthritis of hip
CPT/HCPCS: 73502

== ENCOUNTER 2021-01-19 12:27 | Emergency (ER) | payer MEDICARE, SELFPAY ==
[2021-01-19] VITALS (13 sets, daily range): BP systolic 150–187; BP diastolic 71–88; PULSE 53–64; RESP 15–22; TEMP 36.3–36.6; O2SAT 96–98
[2021-01-19 12:56] LABS: Bilirubin Negative (Negative); Blood Small (Negative); Clarity Sl Cloudy (Clear); Glucose Negative (Negative); Ketones Negative (Negative); Leukocyte Esterase Negative (Negative); Nitrite Negative (Negative); Specific Gravity 1.025 (1.005-1.025); Urobilinogen 0.2 EU/dL (Up TO 0.2); pH 7.5 (5-8)
--- NOTE | 2021-01-19 13:15 | DI.CT_ITS ---
Exam(s) CT CHEST PE CTA EXAM: CT CHEST PE CTA CLINICAL HISTORY: chest pain, sob, still on estradiol. TECHNIQUE: Imaging Protocol: Axial CT angiography was performed with multi-slice acquisition and mu lti-planar and/or 3D reconstructions. CONTRAST MATERIAL: Intravenous: Omnipaque 350 Contrast volume:64 mL COMPARISON: CT CT CHEST PE CTA from 06/22/2020 FINDINGS: Tracheobronchial tree: Patent where visualized. Pulmonary parenchyma: No consolidation or dominant measurable mass. No architectural distortion. Calc ified granuloma. Dependent atelectasis. Pulmonary Arteries: No evidence of filling defect to suggest pulmonary emboli. Mediastinum and Sanna: No dominant adenopathy or fluid collection. The esophagus is unremarkable. Visualized thyroid gland: Unremarkable. Pleura: No effusion or pneumothorax. Heart: The heart is not dilated. No coronary artery calcifications are seen. There is a pericardial e ffusion. It measures 1.3 cm in maximum thickness. It is unchanged compared to the prior examination . Aorta: Thoracic aorta non-dilated. No evidence of dissection. Atherosclerosis. Upper abdomen: Unremarkable. Soft tissues: Unremarkable. Bones: Within normal limits for the patient's age. IMPRESSION: 1. No evidence of pulmonary embolism, thoracic aortic dissection or aneurysm. 2. Persistent small pericardial effusion. 3. Results of this exam have been verbally communicated with provider. RADIATION DOSE DELIVERED: 370.57mGy.cm Total DLP DATA REPOSITORY: All CT scans at this facility are submitted to the National Radiology Data Registry (NRDR) Dose Index Registry (DIR) with the [employer] (A[employer]). RADIATION OPTIMIZATION: All CT scans at this facility use at least one of these dose optimization te chniques: automated exposure control; mA and/or kV adjustment per patient size (includes targeted exa ms where dose is matched to clinical indication); or iterative reconstruction.
[2021-01-19 13:27] LABS: Bacteria Rare HPF (Negative); Crystals Negative HPF (Negative); Epithelial Cells Moderate HPF (Negative); WBC 0-2 HPF (0-5)
[2021-01-19 13:28] LABS: C & S Indicated? No; Casts Negative LPF (Negative); Mucus Trace (Negative)
--- NOTE | 2021-01-19 13:30 | RT.EKG_ITS ---
APPROVED REPORT Exam: Resting ECG Reason for Exam: chest pain Patient Location: E HR:53 bpm ECG Measurements Heart Rate 53 AXIS MD 163 P 44 QRSd 90 QRS -4 QT 445 T 26 QTc 417 Conclusion Sinus bradycardia...rate< 60 Inferior infarct, old...Q >35mS, II III aVF
--- NOTE | 2021-01-19 13:31 | W.ED.GENAD ---
Discharge Plan Disposition Patient Disposition: HOME Condition: Stable Discharge Details Clinical Impression: Acute epigastric pain, Breath shortness Primary Care Provider: Candie Skaggs ED Provider: Zeina Walton Home Meds and New Rx's Prescriptions: Continued hydrocortisone valerate 0.2 % cream 1 applic topical DAILY PRNRF: 0 estradiol 0.01 % (0.1 mg/gram) cream 1 g vaginal .COMPLEX Qty: 42.5 RF: 5 clobetasol 0.05 % ointment 1 applic topical DAILY Qty: 60 RF: 5 metronidazole 500 mg Tablet 500 mg PO TID RF: 0 ciprofloxacin HCl [Cipro] 500 mg Tablet 500 mg PO BID RF: 0 famotidine [Pepcid] 20 mg Tablet 20 mg PO .2-4 TIMES/DAY RF: 0 Xarelto 20 mg tablet 20 mg PO DAILY RF: 0 prednisone 5 mg tablet 5 mg PO DAILY RF: 0 prednisone 1 mg tablet 3 mg PO DAILY RF: 0 losartan-hydrochlorothiazide 100-12.5 mg tablet 1 tab PO HS RF: 0 potassium chloride 20 mEq tablet extended release 20 meq PO RF: 0 Discharge Instructions Instructions: Abdominal Pain (ED), Dyspnea (ED) Additional Instructions: Please continue with your medications for your recent diagnosis of diverticulitis. Encourage water intake. Please try to watch your diet and try to cut back on any acidic food or spicy food. Please continue with your Pepcid to help with discomfort. Please follow-up with primary care in the next 1 to 2 weeks for reevaluation. If you develop increased shortness of breath, chest pain, weakness or other new/worsening symptoms please seek care urgently once again. Otherwise, we have referred you to outpatient stress test and they will be contacting you next week to schedule appointment. Referrals: Candie Skaggs [Primary Care Provider] - Discharge Data Discharge Date/Time-TO BE ENTERED AT DEPARTURE: 01/19/21 17:18 Medical Decision Making <SHIVA Richardson - Last Filed: 01/23/21 22:43> Patient is alert and oriented, pleasant She denies any current chest pain or shortness of breath We talked about admission versus discharge home She is declining admission at this time She is pending second troponin, if the troponin was negative, she requests discharge home Patient does have a heart score of 3, no predominantly secondary to age and comorbidities With negative troponin at this time and EKG without acute abnormality, I think patient is stable for discharge home Her symptoms are vague unfortunately and she is aware that we cannot completely exclude cardiac etiology of her presentation Given very low threshold to return should she have new or worsening complaints Signed out to Zeina Levy pending repeat troponin and EKG at 1420 <SHIVA Zuñiga - Last Filed: 01/19/21 17:57> Care transition to myself from Asia Mleissa PA-C. Please see her initial note regarding history, presentation and exam. In brief, patient is a pleasant 85-year-old female presenting today with complaint of epigastric discomfort, patient was recently admitted for diverticulitis. Did not have any abdominal discomfort. Patient was feeling slightly short of breath when she initially came in which is acute on chronic. At the time I assumed care, repeat troponin pending. Repeat troponin remains less than 0.05. Reevaluated the patient. She continues to be asymptomatic. Family came to pick her up. Encourage encouraged the dietary changes to help reduce her GERD. Encourage that she continue with her discharge orders from recent admission for diverticulitis. Her heart score is 3. She has not had a stress test in the past and did have some chest discomfort as well as shortness of breath. Will request outpatient stress testing which patient is agreeable to. Strict return precautions were discussed. All of concerns were addressed and she is in agreement this plan. HPI <SHIVA Richardson - Last Filed: 01/23/21 22:43> General Mode of arrival: ambulatory. Date/Time Provider Initiated Documentation: 01/19/21 12:41. Limitations to Documentation: no limitations. Information obtained by: patient. HPI Narrative: This 85-year-old female presents with reports of epigastric pain and sensation of retained gas per patient. She states that she feels slightly short of breath. She states that her symptoms have been waxing and waning and been going on for years but were worse with this episode which is why she presents. She is discharged from [facility] yesterday with report of diverticulitis. She is taking ciprofloxacin and Flagyl. She denies any fever or chills. She denies any dysuria or frequency. She denies any history of coronary artery disease, hypertension, or hyperlipidemia. Describes it as a pressure sensation. Related Data Home Medications Medication Instructions Recorded Confirmed clobetasol 0.05 % topical ointment 1 applic TOPICAL DAILY #60 g 12/16/19 01/19/21 estradiol 1 g VAGINAL .COMPLEX #42.5 g 12/16/19 01/19/21 hydrocortisone valerate 0.2 % 1 applic TOPICAL DAILY PRN g 12/16/19 01/19/21 topical cream losartan-hydrochlorothiazide 1 tab PO HS 06/22/20 01/19/21 potassium chloride 20 meq PO 06/22/20 prednisone 3 mg PO DAILY 06/22/20 01/19/21 prednisone 5 mg PO DAILY 06/22/20 01/19/21 Xarelto 20 mg PO DAILY 01/19/21 01/19/21 ciprofloxacin HCl [Cipro] 500 mg PO BID 01/19/21 01/19/21 famotidine [Pepcid] 20 mg PO .2-4 TIMES/DAY 01/19/21 01/19/21 metronidazole 500 mg PO TID 01/19/21 01/19/21 Previous Rx's Medication Instructions Recorded clobetasol 0.05 % topical ointment 1 applic TOPICAL DAILY #60 g 12/16/19 estradiol 1 g VAGINAL .COMPLEX #42.5 g 12/16/19 Allergies Allergy/AdvReac Type Severity Reaction Status Date / Time codeine [Codeine] AdvReac Mild Nausea Unverified 01/19/21 12:54 General Stated Complaint: Abd Prob CARMEN: 3 Review of Systems <SHIVA Richardson - Last Filed: 01/23/21 22:43> All systems reviewed & are unremarkable except as noted in HPI and below PFSH <SHIVA Richardson - Last Filed: 01/23/21 22:43> Medical History Anxiety Atrophic vaginitis Atypical chest pain 05/02/17- seen at [facility]. 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 [place]. Exam <SHIVA Richardson - Last Filed: 01/23/21 22:43> Const General: cooperative and no acute distress HENMT Other: moist mucous membranes Eyes Pupils: PERRL Resp Effort & Inspection: normal respiratory effort Auscultation: clear to auscultation bilaterally Cardio Rate: regular rate Rhythm: regular rhythm GI Inspection: normal to inspection Palpation: soft Other: non-tender No rebound or guarding Skin General skin exam: no rashes or lesions noted Neuro General: patient alert and patient oriented x3 Cognition: normal cognition Speech: speech normal Gait: normal gait Sensory Exam: no sensory deficits noted Extrem Other: Distal pulses intact, no calf swelling or tenderness appreciated Course <SHIVA Richardson - Last Filed: 01/23/21 22:43> Vital Signs Vital signs: Vital Signs Temperature 36.6 C 01/19/21 12:47 Pulse 61 01/19/21 12:47 Respiratory Rate 18 01/19/21 12:47 Blood Pressure 178/88 H 01/19/21 12:47 Pulse Oximetry 97 01/19/21 12:47 Temperature 36.6 C 01/19/21 12:47 Temperature Source Skin 01/19/21 12:47 Pulse 61 01/19/21 12:47 Respiratory Rate 18 01/19/21 12:47 Respiratory Effort Non-Labored 01/19/21 12:47 Blood Pressure 178/88 H 01/19/21 12:47 Blood Pressure Position Supine 01/19/21 12:47 Pulse Oximetry 97 01/19/21 12:47 Oxygen Delivery Method Room Air 01/19/21 12:47 Oxygen Flow Rate 0 01/19/21 12:47 Lab/Test Results Lab/Test Results: Laboratory Tests Range/Units 01/19/21 12:40 Urine Color (Yellow) Yellow Urine Clarity (Clear) Sl Cloudy Urine pH (5-8) 7.5 Ur Specific Radcliffe (1.005-1.025) 1.025 Urine Protein (Negative) mg/dL Negative Urine Ketones (Negative) mg/dL Negative Urine Blood (Negative) Small H Urine Nitrite (Negative) Negative Urine Bilirubin (Negative) Negative Urine Urobilinogen (Up TO 0.2) EU/dL 0.2 Ur Leukocyte Esterase (Negative) Negative Urine RBC (0-2) HPF 10-20 H Urine WBC (0-5) HPF 0-2 Ur Epithelial Cells (Negative) HPF Moderate Urine Crystals (Negative) HPF Negative Urine Bacteria (Negative) HPF Rare Urine Casts (Negative) LPF Negative Urine Mucus (Negative) Trace Ur Culture Indicated? No Urine Glucose (Negative) mg/dL Negative Sign Out <SHIVA Richardson - Last Filed: 01/23/21 22:43> Sign Out Data: Sign Out Comment: pending repeat trop and ekg Last updated by Asia Melissa PA at 01/19/21 16:09
[2021-01-19 13:37] LABS: Abs Immature Grans 0.03 10^3/uL (0.0-0.06); Absolute Basophil Count 0.01 10^3/uL (0.0-0.2); Absolute Eosinophil Count 0.15 10^3/uL (0.0-0.7); Absolute Lymphocyte Count 1.09 10^3/uL (1.2-3.4); Absolute Monocyte Count 0.37 10^3/uL (0.1-0.8); Absolute Neutrophil Count 4.58 10^3/uL (1.2-6.7); Basophils % 0.2; Eosinophils % 2.4; HCT 36.6 % (36.0-46.0); HGB 11.9 g/dL (11.2-15.7); Immature Grans % 0.5; Lymphocytes % 17.5; MCH 32.2 pg (27.0-33.0); MCHC 32.5 % (32.0-36.0); MCV 98.9 fL (80-95); MPV 10.2 fL (8.0-11.0); Monocytes % 5.9; Neutrophils % 73.5; Nucleated RBC 0 %; Platelet Count 262 10^3/uL (130-400); RDW-SD 47.3 fL; WBC 6.23 10^3/uL (4.4-10.8)
--- NOTE | 2021-01-19 13:45 | DI.CT_ITS ---
Exam(s) CT HEAD WO EXAM: CT HEAD WO CLINICAL HISTORY: dunn, on xarelto. TECHNIQUE: Imaging Protocol: Axial computed tomography images with coronal and sagittal reformatted images were created and reviewed COMPARISON: CT HEAD WITHOUT CONTRAST from 03/09/2011 FINDINGS: Ventricles and Extra axial spaces: Normal in size and morphology for the patient's age. Hemorrhage: None. Cerebral parenchyma: No evidence of an acute territorial infarct. Midline shift: None. Brainstem/Cerebellum: Normal. Calvarium: Normal. Visualized Paranasal sinuses/Mastoids: Clear. Soft Tissues: Unremarkable. IMPRESSION: 1. No acute intracranial process. 2. Results of this exam have been verbally communicated with provider. RADIATION DOSE DELIVERED: 824.48mGy.cm Total DLP DATA REPOSITORY: All CT scans at this facility are submitted to the National Radiology Data Registry (NRDR) Dose Index Registry (DIR) with the [employer] (ACR). RADIATION OPTIMIZATION: All CT scans at this facility use at least one of these dose optimization te chniques: automated exposure control; mA and/or kV adjustment per patient size (includes targeted exa ms where dose is matched to clinical indication); or iterative reconstruction.
[2021-01-19 14:01] LABS: ALT 29 U/L (14-59); AST 20 U/L (15-37); Albumin 3.7 g/dL (3.4-5.0); Alkaline Phosphatase 41 U/L (46-116); Anion Gap 10.3 mmol/L (3-11); BUN 16 mg/dL (7-18); CO2 25.7 mmol/L (21.0-32.0); Calcium 9.2 mg/dL (8.5-10.1); Chloride 106 mmol/L (98-107); Estimated GFR 52.69 (mL/min/1.73m2); Glucose 106 mg/dL (74-106); Lipase 95 U/L (73-393); Potassium 3.3 mmol/L (3.5-5.1); Sodium 142 mmol/L (136-145)
[2021-01-19 14:02] LABS: Troponin I < 0.05 ng/mL (<0.06)
--- NOTE | 2021-01-19 16:00 | RT.EKG_ITS ---
APPROVED REPORT Exam: Resting ECG Reason for Exam: abd. pain Patient Location: E HR:53 bpm ECG Measurements Heart Rate 53 AXIS OK 165 P 46 QRSd 85 QRS 2 QT 444 T 38 QTc 417 Conclusion Sinus bradycardia...rate< 60
[2021-01-19 16:49] LABS: Troponin I < 0.05 ng/mL (<0.06)
== END 2021-01-19 17:18 | disposition home or self-care (01) ==
PROVIDERS: Physician Assistant; Emergency Provider Physician Assistant; PCP Family Medicine
DX: R10.13 Epigastric pain (principal); R06.02 Shortness of breath
CPT/HCPCS: 36415; 71275; 80053; 83690; 93005; 99285; 70450; 81003; 81015; 84484; 85025; 93010; 99284

== ENCOUNTER 2021-02-26 01:41 | Outpatient (CLI) | payer MEDICARE, SELFPAY | END 2021-02-26 02:01 | PROVIDERS: PCP Family Medicine; Visit Provider Physician Assistant ==

== ENCOUNTER 2021-06-15 00:40 | Outpatient (CLI) | payer MEDICARE, SELFPAY ==
--- NOTE | 2021-06-15 11:33 | DI.RAD_ITS ---
Exam(s) RF UPPER GI SERIES SINGLE EXAM: RF UPPER GI SERIES SINGLE CLINICAL HISTORY: GENERALIZED ABD PAIN, R10.84, DYSPHAGIA TECHNIQUE: 2D and realtime digital imaging was performed. CONTRAST MATERIAL: Thin and thick oral barium contrast and barium tablet were administered. COMPARISON: CR XR HIP RT COMPLETE AP PELVIS from 12/18/[address] CHEST PE CTA from 01/19/2021 FINDINGS: Initial plain film of the abdomen reveals normal stool and air pattern. Lung bases clear. Calcifica tion related to fibroid noted. Contrast within a diverticulum left lower pelvis. Esophagus: The esophagus is patent with no evidence for erosions, fold thickening, strictures, or ma sses. With regards to the motility, there is a normal primary stripping wave. Mild tertiary contracti ons were noted. There is no hiatal hernia or gastroesophageal reflux. Barium tablet passed into the stomach without delay. Stomach: The stomach shows no gastric fold thickening, erosions, or masses. Duodenal Bulb: Shows no gastric fold thickening, erosions, or masses. Normal gastric emptying. IMPRESSION: Normal upper GI series. Fluoro time 30 seconds RADIATION DOSE DELIVERED: taty Franklin= 4.77 mGy
[2021-06-15] MEDS: Barium Sulfate 700 MG TAB PO (12:14)
[2021-06-15] MEDS: Barium Sulfate 60% W/V 355 ML BTL PO (12:18)
== END 2021-06-15 01:00 ==
PROVIDERS: PCP Family Medicine; Visit Provider Physician Assistant Medical
DX: R10.84 Generalized abdominal pain (principal); R13.10 Dysphagia, unspecified
CPT/HCPCS: 74240; J3490

== ENCOUNTER → 2021-06-20 00:46 | Outpatient (CLI) | payer MEDICARE, SELFPAY ==
--- NOTE | 2021-06-20 15:00 | DI.US_ITS ---
APPROVED REPORT EXAM: Comprehensive 2D, Doppler, and color-flow Echocardiogram Patient Location: Out-Patient House Admin: Eva Yost RDCS (AE) Indications: Pulmonary embolism, Pericardial Effusion Other Information Study Quality: Adequate Conclusion Normal left ventricular wall thickness and chamber size. Estimated ejection fraction is 60 to 65%. Wall motion is normal Normal right ventricular size and systolic function Both atria are normal in size The aortic valve is sclerotic and trileaflet with trace regurgitation. No aortic stenosis. Mild mitral annular calcification, trace mitral regurgitation Normal tricuspid valve with trace regurgitation. Estimated right ventricular systolic pressure is 24 mmHg Trivial pericardial effusion Wall motion Left Ventricle The left ventricle is normal size. The left ventricular systolic function is normal. The left ventric ular ejection fraction is within the normal range. There is normal left ventricular wall thickness. T here is normal LV segmental wall motion. There is no ventricular septal defect visualized. LVEF is 60 -65%. Right Ventricle The right ventricle is normal size. The right ventricular systolic function is normal. The RVSP is 23 .9 mmHg. Atria The left atrium size is normal. The right atrium size is normal. The interatrial septum is intact wit h no evidence for an atrial septal defect. Aortic Valve The Aortic valve is sclerotic. Aortic valve is trileaflet. There is no aortic valvular stenosis. Trac e aortic regurgitation. Mitral Valve Mild mitral annular calcification. No evidence of mitral valve stenosis. Trace mitral regurgitation. Tricuspid Valve The tricuspid valve is normal in structure. There is no tricuspid valve stenosis. Trace tricuspid reg urgitation. Pulmonic Valve The pulmonary valve is normal in structure. There is no pulmonic valvular stenosis. Trace pulmonic re gurgitation. Great Vessels The aortic root is normal in size. Ascending aorta is not well visualized. IVC is normal in size and collapses >50% with inspiration. Pericardium Trace pericardial effusion. There is no pleural effusion. 2D Dimensions IVSD d PLAX 1.00 cm F: 0.6-1.0 LV Vol A2C d MOD 68.9 mL LVPW d PLAX 1.00 cm F: 0.6 - 1.0 LV Vol A4C d MOD 75.7 mL LVID d PLAX 4.45 cm F: 3.8 - 5.2 LA vol/ BSA A2C s A-L 28.9 mL/m2 LVDs 3.05 cm F: 2.2 - 3.5 LA vol/ BSA A4C s A-L 25.5 mL/m2 Ao Root d 2.77 cm F: 2.7 - 3.3 LA Vol/ BSA Biplane s A-L 28.0 mL/m2 RA Area A4C 16.54 cm2 LA Area A4C s MOD 16.35 cm2 RA Vol/ BSA A4C s A-L 25.4 mL/m2 LA Area A2C s MOD 16.85 cm2 LV EF Teichholz 59.4 % LV EF A4C MOD 65.8 % LVEF (Dupree's) 62.91 % F: 54 - 74 LV EF A2C MOD 63.9 % LV Volume 57.99 mL F: 46 - 106 LV EF Biplane MOD 62.9 % LV Volume Index 35.14 mL/m2 F: 29 - 61 SV 45.46 mL LV Vol Biplane MOD 72.3 mL SV Index 27.51 mL/m2 FS 31.35 % M-Mode TAPSE 2.60 cm (M/F) >1.7 LV Diastology MV E' medial 0.066 (>0.07 m/s) E/A Ratio 1.0 LV E/e MED 10.85 (<14) MV E Vmax 0.72 (0.4-1.3 m/s) MV E' lateral 0.075 (>0.1 m/s) MV A Vmax 0.70 (0.4-1.3 m/s) LV E/e LAT 9.60 (<14) MV E/A Ratio 1.02 MV E/E' medial 10.90 MV E/E' lateral 9.65 Aortic Valve LVOT Area 2.70 cm2 AoV Area Vmax 1.58 cm2 LVOT Vmax 0.98 m/s AoV Area/ BSA (Vmax) 0.96 cm2/m2 LVOT Mean Rajeev. 0.60 m/s LEESA Mean Rajeev. 1.46 cm2 LVOT Peak Grad 3.8 mmHg LEESA Mean Rajeev. Index 0.88 cm2/m2 LVOT Mean Grad 1.7 mmHg LVOT VTI 0.247 m LVOT Diam s 1.85 cm AoV Vmax 1.67 m/s Velocity Ratio 0.58 AoV Mean Rajeev. 1.11 m/s AoV Peak Grad 11.2 mmHg LVOT SV 66.57 mL AoV Mean Grad 5.6 mmHg AoV VTI 0.380 m AoV Area VTI 1.75 cm2 AoV Area/ BSA (VTI) 1.06 cm/m2 Mitral Valve MV DT 189 (160-240 msec) MV PHT 55 msec MV Area PHT 4.01 cm2 MV VTI 0.284 m MV Area VTI 2.35 (4.0-6.0 cm2) Pulmonary Valve PV Vmax 0.89 (0.5-1.5 m/s) RVOT Peak Gr. 2.40 mmHg PV Peak Grad 3.2 mmHg RVOT Mean Gr. 1.45 mmHg PV Mean Grad 2.0 mmHg RVOT VTI 0.204 m PV VTI 0.211 m RVOT Vmax 0.78 m/s Tricuspid Valve TR Peak Grad 20.8 mmHg TR Vmax 2.29 m/s RA Pressure 3.00 mmHg RVSP (TR) 23.9 mmHg
== END ==
PROVIDERS: PCP Family Medicine; Visit Provider Internal Medicine Cardiovascular Disease
DX: I26.99 Other pulmonary embolism without acute cor pulmonale (principal)
CPT/HCPCS: 93306

== ENCOUNTER → 2021-07-02 01:42 | Outpatient (CLI) | payer MEDICARE, SELFPAY ==
--- NOTE | 2021-07-02 | DI.NM_ITS ---
APPROVED REPORT Exam: Exercise Treadmill Patient Location: Out-Patient Room/Bed: Stress Nurse: Milagros Josue RN Ordering Provider:AMERICO DUTTA, Contact Number: [phone] BMI: 25.78 Baseline Rhythm: Sinus Bradycardia Indications: Pulmonary embolism, dyspnea/SOB, pericardial EFF, essential hypertension, dyslipidemia, assess for CAD Medical History Medical History: Hypertension, hyperlipidemia, prediabetes, pericardial effusion, pulmonary embolism, SOB, hypokalemia, gerd Cardiac Medications: Losartan-HCTZ, xarelto, famotidine Allergies: Codeine Cardiac Risk Factors: Hypertension, hyperlipidemia, prediabetes, smoker (former), family hx Previous Cardiac Procedures: pci -2018 Pretest Chest Pain Characteristics: None Exercise History: Physically active Physical Disabilities: None Lung Sounds: Clear to auscultation Heart Sounds: Regular Stress Test Details Test: Exercise stress testing was performed using a Oz protocol. Nuclear Acquisition: Rest Tc-99m/Stress Tc-99m 1 day Rest Isotope: Tc-99m Sestamibi. Dose: 9.2 Date: 07/02/2021 Injection Time: 1130 Stress Isotope: Tc-99m Sestamibi. Dose: 31.0 Date: 07/02/2021 Injection Time: 1309 HR Resting HR Supine: 50 bpm Max Heart Rate (APMHR): 135.531811 bpm Resting HR Standin bpm Target HR (85% APMHR): 114.518804 bpm Max HR Achieved: 130 bpm % of APMHR: 96.30 Recovery HR: 60 bpm HR response to stress: Normal HR response to stress BP Resting BP Supine: 138/68 mmHg Resting BP Standin/74 mmHg Max BP: 214/68 mmHg Recovery BP: 162/68 mmHg BP response to stress: Abnormal hypertensive response to stress. Comment: Pt did not take Losartan-HCTZ morning of test ECG Resting ECG: Sinus Bradycardia Ectopy: None Stress ECG: Sinus Tachycardia ST Change: No significant ST segment changes noted Arrhythmia: Rare PACs, frequent PVCs Recovery ECG: Sinus Rhythm Recovery ST Change: No significant ST segment changes noted Recovery Arrhythmia: None Clinical Reason for Termination: Fatigue, lightheaded, indigestion Stress Symptoms: Fatigue, lightheaded, indigestion Exercise duration: 5 min38 sec Highest Stage Reached: Stage 2: 2.5 mph at 12% grade. Exercise capacity: 7.05 METs Angina Score: None Castillo Treadmill Score: 5.4 Rate Pressure Product: [id number] Stress ECG Conclusion 1. Resting electrocardiogram showed poor R wave progression 2. Patient exercised on the Oz protocol and completed a workload of 7.05 METS 3. Normal hemodynamic response to exercise. The patient achieved 96% of predicted heart rate for age 4. The electrocardiographic portion of the test was negative for myocardial ischemia 5. Atrial and ventricular ectopics were noted 6. See MPI report Castillo Treadmill Score is 5.4 which is Low risk. Stress Test Summary STAGE Time (mins) Speed (mph) Grade (%) HR BP SYMPTOMS METS Supine 50 138/68 Standing 58 192/74 SpO2 98% 1 3 1.7 10 105 SpO2 97% 4.6 2 6 2.5 12 130 Lightheaded, indigestion, SpO2 97% 7 1 min recovery 97 214/68 Symptoms improving, SpO2 98% 3 min recovery 62 180/78 Symptoms resolved, SpO2 98% 6 min recovery 60 162/68 SpO2 98% Attempts made to check blood pressures during exercise; pt unable to tolerate measurments due to pain in arm from cuff squeezing. MPI Conclusion Normal myocardial perfusion without evidence of ischemia or prior infarction EF 61%, normal wall motion Radiologist Interpretation Radiologist Interpretation by: Rodolfo Herrera MD Interpretation Date/Time: 07/05/2021 13:45:28
== END ==
PROVIDERS: PCP Family Medicine; Visit Provider Internal Medicine Cardiovascular Disease
DX: R06.02 Shortness of breath (principal); I10 Essential (primary) hypertension; I26.99 Other pulmonary embolism without acute cor pulmonale; E78.5 Hyperlipidemia, unspecified
CPT/HCPCS: 78452; 93016; 93018; 93017

== ENCOUNTER 2021-07-27 01:17 | Outpatient (CLI) | payer MEDICARE, SELFPAY ==
[2021-07-27 12:34] LABS: Abs Immature Grans 0.02 10^3/uL (0.0-0.06); Absolute Basophil Count 0.02 10^3/uL (0.0-0.2); Absolute Eosinophil Count 0.13 10^3/uL (0.0-0.7); Absolute Lymphocyte Count 1.76 10^3/uL (1.2-3.4); Absolute Monocyte Count 0.44 10^3/uL (0.1-0.8); Absolute Neutrophil Count 3.57 10^3/uL (1.2-6.7); Basophils % 0.3; Eosinophils % 2.2; HCT 37.9 % (36.0-46.0); HGB 12.7 g/dL (11.2-15.7); Immature Grans % 0.3; Lymphocytes % 29.6; MCH 32.9 pg (27.0-33.0); MCHC 33.5 % (32.0-36.0); MCV 98 fL (80-95); MPV 10.4 fL (8.0-11.0); Monocytes % 7.4; Neutrophils % 60.2; Platelet Count 301 10^3/uL (130-400); RBC 3.86 10^6/uL (3.93-5.22); RDW 12.9 % (11.7-14.6); RDW-SD 46.1 fL; WBC 5.94 10^3/uL (4.4-10.8)
[2021-07-27 13:44] LABS: ALT 15 U/L (14-59); AST 11 U/L (15-37); Albumin 3.9 g/dL (3.4-5.0); Alkaline Phosphatase 50 U/L (46-116); BUN 18 mg/dL (7-18); CREATININE 1.1 mg/dL (0.55-1.02); Calcium 8.8 mg/dL (8.5-10.1); Calculated LDL 192 mg/dL (<100); Chloride 106 mmol/L (98-107); Cholesterol 282 mg/dL (<200); Estimated GFR 47.21 (mL/min/1.73m2); Glucose 110 mg/dL (74-106); HDL Cholesterol 56 mg/dL (40-60); Potassium 3.6 mmol/L (3.5-5.1); Sodium 144 mmol/L (136-145); Total Protein 7.5 g/dL (6.4-8.2); Triglyceride 174 mg/dL (<150)
[2021-07-27 14:39] LABS: Hemoglobin A1C 6.2 % (<5.7)
[2021-07-27 21:19] LABS: CRP, High Sensitivity 0.98 mg/L (See Note)
[2021-07-30 15:31] LABS: Vitamin D 25 Total 37.8 ng/mL (30-100)
== END 2021-07-27 01:18 | disposition home or self-care (01) ==
LOC: LOS 01:17
PROVIDERS: PCP Family Medicine; Visit Provider Internal Medicine
DX: I10 Essential (primary) hypertension (principal); R73.01 Impaired fasting glucose; I26.99 Other pulmonary embolism without acute cor pulmonale; E78.5 Hyperlipidemia, unspecified; M35.3 Polymyalgia rheumatica
CPT/HCPCS: 36415; 80053; 80061; 82306; 86141; 83036; 85025

== ENCOUNTER 2022-03-15 01:35 | Outpatient (CLI) | payer MEDICARE, SELFPAY ==
[2022-03-15 10:15] LABS: Hemoglobin A1C 6.2 % (<5.7)
[2022-03-15 10:17] LABS: Abs Immature Grans 0.02 10^3/uL (0.0-0.06); Absolute Basophil Count 0.04 10^3/uL (0.0-0.2); Absolute Eosinophil Count 0.17 10^3/uL (0.0-0.7); Absolute Lymphocyte Count 1.58 10^3/uL (1.2-3.4); Absolute Monocyte Count 0.36 10^3/uL (0.1-0.8); Absolute Neutrophil Count 2.68 10^3/uL (1.2-6.7); Basophils % 0.8; Eosinophils % 3.5; HCT 35.8 % (36.0-46.0); HGB 11.8 g/dL (11.2-15.7); Immature Grans % 0.4; Lymphocytes % 32.6; MCH 32.4 pg (27.0-33.0); MCV 98 fL (80-95); MPV 10.5 fL (8.0-11.0); Monocytes % 7.4; Neutrophils % 55.3; Platelet Count 253 10^3/uL (130-400); RBC 3.64 10^6/uL (3.93-5.22); RDW 12.8 % (11.7-14.6); RDW-SD 46.1 fL; WBC 4.85 10^3/uL (4.4-10.8)
[2022-03-15 10:39] LABS: D-Dimer 493 ng/mlFEU (<500)
[2022-03-15 11:05] LABS: ALT 20 U/L (14-59); AST 16 U/L (15-37); Albumin 3.9 g/dL (3.4-5.0); Alkaline Phosphatase 55 U/L (46-116); Anion Gap 6.8 mmol/L (3-11); BUN 15 mg/dL (7-18); Bilirubin, Total 0.7 mg/dL (0.2-1.0); CO2 29.2 mmol/L (21.0-32.0); CREATININE 0.9 mg/dL (0.55-1.02); Calcium 9.7 mg/dL (8.5-10.1); Calculated LDL 168 mg/dL (<100); Chloride 105 mmol/L (98-107); Cholesterol 265 mg/dL (<200); Estimated GFR 62.26 (mL/min/1.73m2); Ferritin 78 ng/mL (8-252); Glucose 107 mg/dL (74-106); HDL Cholesterol 52 mg/dL (40-60); Potassium 3.6 mmol/L (3.5-5.1); Sodium 141 mmol/L (136-145); TSH 2.87 uIU/mL (0.36-3.74); Total Protein 7.2 g/dL (6.4-8.2); Triglyceride 227 mg/dL (<150); Vitamin B12 498 pg/mL (193-986)
[2022-03-15 11:33] LABS: FREE T4 0.94 ng/dL (0.76-1.46); NT-proBNP 89 pg/mL (<300)
[2022-03-15 11:34] LABS: Vitamin D 25 Total 41.9 ng/mL (30-100)
[2022-03-15 19:28] LABS: T3,Free 3.1 pg/mL (2.8-5.3)
[2022-03-18 08:38] LABS: Homocysteine 12.2 umol/L (5.0-13.9)
[2022-03-18 09:12] LABS: Parathyroid Hormone,Intact 28 pg/mL (19-88)
[2022-03-18 10:14] LABS: Insulin 8.1 uIU/mL (<29.0)
[2022-03-18 10:35] LABS: Lyme Ab w Rflx to Lyme Confirm Positive (Negative)
[2022-03-18 16:45] LABS: Lyme IgG Ab Negative (Negative); Lyme IgM Ab Negative (Negative)
[2022-03-19 09:54] LABS: Albumin 62.1 % (55.8-66.1); Albumin g/dL 4.2 g/dL (3.6-5.2); Immunotyping, Serum (See Note); Total Protein 6.8 g/dL (6.3-8.2)
== END 2022-03-15 01:36 | disposition home or self-care (01) ==
LOC: LBO 01:35
PROVIDERS: PCP Family Medicine; Visit Provider Internal Medicine
DX: I10 Essential (primary) hypertension (principal); R73.01 Impaired fasting glucose; E78.5 Hyperlipidemia, unspecified; I26.99 Other pulmonary embolism without acute cor pulmonale; F41.8 Other specified anxiety disorders; M35.3 Polymyalgia rheumatica; Z79.899 Other long term (current) drug therapy; R79.89 Other specified abnormal findings of blood chemistry; A69.20 Lyme disease, unspecified; R06.02 Shortness of breath
CPT/HCPCS: 36415; 80053; 80061; 82306; 83090; 86141; 86617; 82607; 82728; 83036; 83525; 83880; 83970; 84155; 84165; 84439; 84443; 84481; 85025; 85379; 86320; 86618

== ENCOUNTER 2022-06-13 01:13 | Outpatient (CLI) | payer MEDICARE, SELFPAY ==
--- NOTE | 2022-06-13 | DI.DEXA_ITS ---
Exam(s) XR DEXA BONE DENSITY W/WO MAJO EXAM: XR DEXA BONE DENSITY W/WO MAJO CLINICAL HISTORY: POSTMENOPAUSAL Z78.0 SCREENING FOR OSTEOPOROSIS Z13.820 TECHNIQUE: COMPARISON: Comparison examination is 01/27/2003. FINDINGS: Lateral Spine Image: Unremarkable. No compression deformities identified. Left hip: Total T-Score: -1.0. This compares to -0.8 on the prior examination. Total Z-Score: 1.4 T- and Z-scores: Within normal limits. There is osteopenia in the femoral neck with a T-score of -1.3 . Lumbar Spine: Total T-Score: -1.3. This is unchanged compared to the prior examination. Total Z-Score: 1.6 T- and Z-scores: Findings are consistent with osteopenia. IMPRESSION: There is no evidence of osteoporosis in the femoral neck or lumbar spine.
== END 2022-06-13 01:33 ==
LOC: DI 01:13
PROVIDERS: PCP Family Medicine; Visit Provider Family Medicine
DX: Z78.0 Asymptomatic menopausal state (principal); Z13.820 Encounter for screening for osteoporosis
CPT/HCPCS: 77080

== ENCOUNTER 2022-12-23 12:52 | Outpatient (CLI) | payer MEDICARE, SELFPAY ==
[2022-12-23 12:16] LABS: Anion Gap 10.6 mmol/L (3-11); BUN 19 mg/dL (7-18); CO2 27.4 mmol/L (21.0-32.0); Calcium 9.5 mg/dL (8.5-10.1); Calculated LDL 179 mg/dL (<100); Chloride 104 mmol/L (98-107); Cholesterol 258 mg/dL (<200); Estimated GFR 54.53 (mL/min/1.73m2); HDL Cholesterol 52 mg/dL (40-60); Potassium 3.4 mmol/L (3.5-5.1); Sodium 142 mmol/L (136-145); Triglyceride 135 mg/dL (<150)
[2022-12-23 12:25] LABS: Glucose 114 mg/dL (74-106)
[2022-12-23 12:37] LABS: Hemoglobin A1C 6.1 % (<5.7)
== END 2022-12-23 12:53 | disposition home or self-care (01) ==
PROVIDERS: PCP Family Medicine; Visit Provider Family Medicine
DX: E78.5 Hyperlipidemia, unspecified (principal); R73.03 Prediabetes; I10 Essential (primary) hypertension
CPT/HCPCS: 36415; 80048; 80061; 83036

== ENCOUNTER 2023-03-21 12:20 | Outpatient (CLI) | payer MEDICARE, SELFPAY ==
[2023-03-21 11:31] LABS: Abs Immature Grans 0.01 10^3/uL (0.0-0.06); Absolute Basophil Count 0.05 10^3/uL (0.0-0.2); Absolute Eosinophil Count 0.16 10^3/uL (0.0-0.7); Absolute Lymphocyte Count 1.66 10^3/uL (1.2-3.4); Absolute Monocyte Count 0.29 10^3/uL (0.1-0.8); Eosinophils % 3.1; HCT 35.1 % (36.0-46.0); HGB 11.8 g/dL (11.2-15.7); Immature Grans % 0.2; Lymphocytes % 32.1; MCH 31.6 pg (27.0-33.0); MCHC 33.6 % (32.0-36.0); MCV 94 fL (80-95); MPV 9.5 fL (8.0-11.0); Monocytes % 5.6; Platelet Count 278 10^3/uL (130-400); RBC 3.74 10^6/uL (3.93-5.22); RDW-SD 44.1 fL; WBC 5.17 10^3/uL (4.4-10.8)
[2023-03-21 12:02] LABS: D-Dimer 668 ng/mlFEU (<500)
[2023-03-21 12:09] LABS: Hemoglobin A1C 6.2 % (<5.7)
[2023-03-21 12:30] LABS: Vitamin D 25 Total 30.9 ng/mL (30-100)
[2023-03-21 12:35] LABS: ALT 22 U/L (14-59); AST 14 U/L (15-37); Albumin 3.5 g/dL (3.4-5.0); Alkaline Phosphatase 48 U/L (46-116); Anion Gap 7.8 mmol/L (3-11); BUN 19 mg/dL (7-18); Bilirubin, Total 0.8 mg/dL (0.2-1.0); CO2 29.2 mmol/L (21.0-32.0); CREATININE 0.9 mg/dL (0.55-1.02); Calcium 9.3 mg/dL (8.5-10.1); Calculated LDL 212 mg/dL (<100); Chloride 106 mmol/L (98-107); Cholesterol 300 mg/dL (<200); Estimated GFR 61.87 (mL/min/1.73m2); Ferritin 92 ng/mL (8-252); Folate 16.7 ng/mL (8.6-20.0); Glucose 115 mg/dL (74-106); HDL Cholesterol 61 mg/dL (40-60); Potassium 3.4 mmol/L (3.5-5.1); Sodium 143 mmol/L (136-145); TSH 3.03 uIU/mL (0.36-3.74); Total Protein 7.2 g/dL (6.4-8.2); Triglyceride 138 mg/dL (<150); Vitamin B12 435 pg/mL (193-986)
[2023-03-21 12:54] LABS: Amylase 47 U/L (25-115); FREE T4 0.87 ng/dL (0.76-1.46); Lipase 35 U/L (16-77); Uric Acid 7.4 mg/dL (2.6-6.0)
[2023-03-21 12:56] LABS: Iron 81 ug/dL (50-170); Total Iron Binding Capacity 285 ug/dL (250-450); Transferrin Sat 28 % (15-50)
[2023-03-21 17:54] LABS: CRP, High Sensitivity 1.75 mg/L (See Note)
[2023-03-21 18:09] LABS: T3,Free 3.9 pg/mL (2.8-5.3)
[2023-03-21 18:28] LABS: Homocysteine 13.2 umol/L (5.0-13.9)
[2023-03-21 19:38] LABS: Parathyroid Hormone,Intact 48 pg/mL (19-88)
[2023-03-21 20:10] LABS: CA 125 9 U/mL (<30)
[2023-03-24 10:22] LABS: Lyme Ab w Rflx to Lyme Confirm Negative (Negative)
[2023-03-24 15:04] LABS: Albumin 60.9 % (55.8-66.1); Albumin g/dL 4.1 g/dL (3.6-5.2); Total Protein 6.8 g/dL (6.3-8.2)
== END 2023-03-21 12:21 | disposition home or self-care (01) ==
LOC: LBO 12:20
PROVIDERS: PCP Family Medicine; Visit Provider Internal Medicine
DX: I10 Essential (primary) hypertension (principal); R73.01 Impaired fasting glucose
CPT/HCPCS: 36415; 80053; 80061; 82306; 83090; 83690; 86141; 86304; 82150; 82607; 82728; 82746; 83036; 83540; 83550; 83970; 84165; 84439; 84443; 84481; 84550; 85025; 85379; 86618

== ENCOUNTER 2023-10-08 23:28 | Outpatient (REF) | payer MEDICARE, SELFPAY ==
[2023-10-08 21:13] LABS: Abs Immature Grans 0.02 10^3/uL (0.0-0.06); Absolute Basophil Count 0.04 10^3/uL (0.0-0.2); Absolute Eosinophil Count 0.06 10^3/uL (0.0-0.7); Absolute Lymphocyte Count 1.67 10^3/uL (1.2-3.4); Absolute Monocyte Count 0.34 10^3/uL (0.1-0.8); Absolute Neutrophil Count 3.54 10^3/uL (1.2-6.7); Basophils % 0.7 %; Eosinophils % 1.1 %; HCT 37.1 % (36.0-46.0); HGB 12.4 g/dL (11.2-15.7); Immature Grans % 0.4 %; Lymphocytes % 29.5 %; MCH 32.6 pg (27.0-33.0); MCHC 33.4 % (32.0-36.0); MCV 98 fL (80-95); MPV 10.7 fL (8.0-11.0); Neutrophils % 62.3 %; Platelet Count 260 10^3/uL (130-400); RDW 12.5 % (11.7-14.6); RDW-SD 45.1 fL; WBC 5.67 10^3/uL (4.4-10.8)
[2023-10-08 21:28] LABS: ALT 18 U/L (14-59); AST 17 U/L (15-37); Albumin 4.1 g/dL (3.4-5.0); Alkaline Phosphatase 50 U/L (46-116); Anion Gap 11.9 mmol/L (3-11); BUN 16 mg/dL (7-18); Bilirubin, Total 1.21 mg/dL (0.2-1.0); CO2 26.1 mmol/L (21.0-32.0); Chloride 105 mmol/L (98-107); Estimated GFR 54.53 (mL/min/1.73m2); Glucose 103 mg/dL (74-106); Lipase 58 U/L (16-77); Magnesium 2.2 mg/dL (1.8-2.4); Potassium 3.5 mmol/L (3.5-5.1); Sodium 143 mmol/L (136-145); Total Protein 7.7 g/dL (6.4-8.2)
[2023-10-08 22:16] LABS: Bilirubin Negative (Negative); Blood Moderate (Negative); Clarity Clear (Clear); Glucose Negative (Negative); Ketones Negative (Negative); Leukocyte Esterase Negative (Negative); Nitrite Negative (Negative); Specific Gravity 1.015 (1.005-1.025); Urobilinogen 0.2 mg/dL (Up to 0.2); pH 6.5 (5-8)
[2023-10-08 22:34] LABS: Bacteria Rare HPF (Negative); C & S Indicated? No/Sq. Contamination; Casts Negative LPF (Negative); Crystals Negative HPF (Negative); Epithelial Cells Many HPF (Negative); Mucus Negative (Negative); WBC Negative HPF (0-5)
--- OUTSIDE RECORDS SUMMARY | 2023-10-08 23:30 | XMS_ITS | Encounter Summary ---
Author Organization [facility] [place] [address] Care Team Providers Care Prevention Specialist Name Role Phone Candie Skaggs MD Primary Care Provider [phone] Reason for Visit * Reason Comments Bilateral Leg Pain * Consultation (Routine) - Closed Specialty Diagnoses / Procedures Referred By Contac t Referred To Contact [facility] Diagnoses Bilateral hip pain Radiculopathy of lumbar region Lower extremity pain, left Lower extremity pain, right spine- BLE pain/ XR h/p 04/04/22 in eDH Rukhsana Mills PA [facility] [place] [address] [facility] [place] [address] Referral ID Status Reason Start Date Expiration Date V isits Requested Visits Authorized [id number] Closed Consult, Test & Treat 04/04/2022 04/04/2023 1 1 Encounter Details Date Type Department Care Team (Latest Contact Info) Description 06/10/2022 2:00 PM EDT Office Visit [place] [address] Candie Mandujano APRN [facility] [place] [address] Bilateral lumbar radiculopathy Social History Tobacco Use Types Packs/Day Years Used Date Smoking Tobacco: Former Cigarettes 0.5 3 Smokeless Tobacco: Former Quit: 06/22/1979 Tobacco Cessation:Counseling Given: Not Answered Alcohol Use Standard Drinks/Week Comments Yes 2 (1 standard drink = 0.6 oz pur e alcohol) Sex and Gender Information Value Date Recorded Sex Assigned at Not on file Gender Identity Not on file Sexual Orientation Not on file documented as of this encounter Last Filed Vital Signs Vital Sign Reading Time Taken Comments Blood Pressure - - Pulse - - Temperature - - Respiratory Rate - - Oxygen Saturation - - Inhaled Oxygen Concentration - - Weight 64.4 kg (142 lb) 06/10/2022 2:04 PM EDT Height 154.9 cm (5' 1) 06/10/2022 2:04 PM EDT Body Mass Index 26.83 06/10/2022 2:04 PM EDT documented in this encounter Progress Notes * Candie Mandujano APRN - 06/10/2022 2:00 PM EDT [facility] Medical Decision Making: Abby Ruffin is a pleasant and straightforward 86 y.o. female seen today for a chief complaint of bilateral buttock and hip pain. Today, I discussed with the patient that she likely has a combination of intra-articular hip osteoarthritis contributing to the reduced range of motion of the hips and groin pain along with suspected spinal stenosis of some degree causing the radicular symptoms distal to the knee in an L5-S1 distribution. Today, I discussed with the patient 2 options to help with localizing the source of her pain. I recommended consideration of diagnostic intra-articular hipinjections as well as an MRI of the lumbar spine to evaluate for any upper lumbar impingement. We ul timately agreed on moving forward with a lumbar MRI for further evaluation of her overall complaints and she will follow-up with me after this is completed to review the results together at which point, we can discuss next steps. Diagnosis: ICD-10-CM 1. Bilateral lumbar radiculopathy M54.16 MRI Lumbar Spine wo Contrast (Generic) CANCELED: MRI Lumbar Spine wo Contrast (Generic) Plan 1. MR lumbar 2. Consider diagnostic bilateral intra-articular hip injections 3. Follow-up with me when the above MRI is completed for further discussion of options HPI: Abby Ruffin is a 86 y.o. female seen in referral today upon the request of Rukhsana Millsfor evaluation of a chief complaint of bilateral lower extremity pain. She describes as a burning sensation to bilateral lower extremities. She also endorses bilateral hip pain making it somewhat difficult to walk. However, she also reported that this pain tend to come and go. Currently, the patient describes discomfort in the bilateral lateral aspect of the hips as well as in the bilateral buttock over the region of the SI joints. She also endorses some bilateral groin discomfort. Additionally, she reports that on occasion, she will have radicular type pain in the lateral aspect of her legs with additional reports of tingling to all of her toes. There are no symptoms of neurogenic claudication. She denies any alteration of bowel or bladder function. She denies any sense of weakness. Her symptoms are worsened with sitting for prolonged periods of time as well as with rising from a seated to a standing position. She also reports that nighttime's are difficult and that the bilateral lateral hip discomfort seems to be worse at night. Employment: Retired ROS A ten point review of systems was completed today and, of note, pertinent positives and negatives are indicated in the HPI. reports that she has quit smoking. Her smoking use included cigarettes. She has a 1.50 pack-year smoking history. She quit smokeless tobacco use about 42 years ago. Conservative Treatment: Physical Therapy: None Home Exercise Program: None Medications: NSAIDS: NONE Muscle relaxer: NONE Topicals: NONE Neuroleptics: NONE Opioids: None Other: NONE Tylenol Other Treatments: None Injections: 1. None Physical Examination: Wt Readings from Last 1 Encounters: 06/10/22 64.4 kg (142 lb) BMI Readings from Last 1 Encounters: 06/10/22 26.83 kg/m?? Pain: 3 (comes and goes) - 08/26 General: Pleasant, cooperative, Mood and affect are appropriate Posture: Upright Gait: Nonantalgic Palpation: There is no tenderness over the bilateral SI joints, or greater trochanteric region. There are no masses, lesions, or deformities. Skin: Intact with no stigmata of underlying disease. ROM: Range of motion of the lumbar spine is limited on forward flexion secondary to bilateral hip restriction. Range of motion of the bilateral hips was also tested today and she has very limited range of motion on internal and external rotation. There is some recreation of the hip discomfort on external rotation Sensation: Grossly intact throughout all dermatomes Neuro: Strength: 5/5 throughout all muscle groups Reflexes: 1+ at the knees and the ankles Imaging and Test Review: No imaging studies were available for review today CC: Candie Skaggs MD Referring Provider: Rukhsana Mandujano APRN 06/10/2022 [facility] documented in this encounter Plan of Treatment Not on file documented as of this encounter Visit Diagnoses Diagnosis Bilateral lumbar radiculopathy documented in this encounter Care Teams Prevention Specialist Relationship Specialty Start Date End Date Candie Skaggs MD [address] [address] PCP - General Family Medicine 03/19/19 documented as of this encounter
--- OUTSIDE RECORDS SUMMARY | 2023-10-08 23:30 | XMS_ITS | Encounter Summary ---
Author Organization [facility] [place] [address] Care Team Providers Care Supervisor [employer] Name Role Phone Candie Skaggs MD Primary Care Provider [phone] Reason for Visit * Consultation (Routine) - Authorized Specialty Diagnoses / Procedures Referred By Ko duarte Referred To Contact Dermatology Diagnoses Dysplastic nevus of skin Candie Skaggs MD [address] [place] [address] [facility] [address] [place] [address] Referral ID Status Reason Start Date Expiration Date Visits Requested Visits Authorized [id number] Authorized Consult, Test & Treat PCP Updated and/or Approved 3 01/01/2024 6 6 Encounter Details Date Type Department Care Team (Late st Contact Info) Description 01/24/2023 10:30 AM EST Office Visit Dermatology at [facility] [address] [place] [address] Garfield Samuels MD [facility] [address] [address] Neoplasm of unspecified behavior of bone, soft tissue, and skin; Seborrheic keratosis; Lentigines; Dermatitis Social History Tobacco Use Types Packs/Day Years Used Date Smoking Tobacco: Former Cigarettes 0.5 3 Smokeless Tobacco: Former Quit: 06/22/1979 Alcohol Use Standard Drinks/Week Comments Yes 2 (1 standard drink = 0.6 oz pur e alcohol) Sex and Gender Information Value Date Recorded Sex Assigned at Not on file Gender Identity Not on file Sexual Orientation Not on file documented as of this encounter Patient Instructions * Patient Instructions* Jennifer Miller RN - 01/24/2023 10:30 AM EST Images from the original note were not included. IPL Frequently Asked Questions (FAQs) What is Photorejuvenation? Photorejuvenation is a light-based treatment used to improve the skin. It treats brown and red discoloration, blood vessels and overall tone and texture. Photorejuvenation can be performed using a variety of lasers or light sources. We use an Intense Pulsed Light (or IPL) unit made by [employer]) and occasionally use a separate alexandrite or pulsed dye laser for any stubborn spots. How does it work? The technology behind photorejuvenation with Intense Pulsed Light (IPL) is based on the principle of selective photothermolysis (photo = light, thermal = heat, lysis = destruction, selective = targeted). Each pulse from the IPL machine delivers a high intensity flash of light. These intense pulses of light are absorbed very selectively by chromophores in the skin. Chromophores are pigmented substances that include melanin and hemoglobin. Structures that concentrate these substances (like blood vessels and brown ???age spots?? ) will be targeted by the energy of each pulse. This process is ???non-ablative?? , meaning the surface of the skin is left intact. What areas can I treat? The most commonly treated areas include the face, neck, chest, and hands. The most commonly treated conditions are sun damage, visible blood vessels and rosacea. How many treatments will I need? A series of 3-5 treatments, with each one scheduled 4-6 weeks apart is recommended for optimal results. With good sun protection and regular skincare results can lastup to five years. After completing a series, most patients will benefit from a yearly maintenance tr eatment. Does it hurt? The treatment consists of multiple pulses delivered by the IPL device. Each pulse feels like a brief stinging or snapping sensation that is mildly- moderately uncomfortable. How do I prepare for the procedure? Avoid the sun for 4 weeks before and 2 weeks after the treatment. Avoid self-sade for 2 weeks prior to the treatment Use gentle skin care for 5 days prior to the procedure. Products to stop during those 5 days include: Retin A, tretinoin, retinol, alpha-hydroxy acid, abrasive scrubs or vitamin C Use gentle skin care and regular sunscreen after your procedure. Resume your usual regimen (with retinoids, scrubs, alpha-hydroxy acids and vitamin C) 3-5 days after your procedure. If taking a medication that is photosensitizing (e.g. Oracea, MCN, doxycycline, Monodox etc), stop the medication 3 days prior to the treatment to prevent adverse side effects. Such medications can be restarted immediately after the treatment. Let us know if you have a history of cold sores. Light treatments can trigger cold sores so we often prescribe a medication to prevent that. Take up to 600mg of ibuprofen 1 hour prior to treatment to help make the process more comfortable. What should I expect after the procedure? Mild swelling and redness are typical immediately after the treatment and will resolve within 2 days. Discomfort is usually very temporary and most patients leave with no discomfort. A minority of patients (who need more aggressive treatments) will have moderate burning and stinging that can last forseveral hours. Pigmented lesions (freckles or age spots) darken into a coffee grounds appearance on the skin???s surface before sloughing away in about 1-2 weeks on the face and 2-3 weeks for non-facial areas. Most people feel comfortable returning to work and normal activities immediately after the treatment, but we advise that you plan to avoid major social events for one week. How is the treatment performed? Protective eye patches are applied, your face is cleaned and cold air is blown on your skin as we deliver pulses with the laser, covering the entire desired area. Sessions usually last about 20 minutes. What are the risks? Treated areas are prone to hyperpigmentation (darkening of the skin) if not protected from the sun.Avoidance of the sun and wearing sunscreen daily are advised. Superficial foley on the skin are very uncommon but possible. What type of results can I expect? Skin discoloration is improved with a fading of brown spots and reduction in redness. Blood vessels are less noticeable Pores are less visible Overall skin tone is brighter and more youthful. Excellent duration of effect when maintained with a good skincare regimen and sun protection. Each treatment will bring improvements but optimal results and better duration of response are seen when patients complete their series adequately treated by 3 treatments but the redness of rosacea may require up to 5 treatments. Before IPL Series After Before IPL Series After documented in this encounter Progress Notes * Dagoberto Marcano RN - 01/24/2023 10:30 AM EST Images from the original note were not included. DEPARTMENT OF DERMATOLOGY Medical Dermatology Clinic Provider: Garfield Samuels MD Patient's preferred name Abby Preferred contact method for results [x]Phone []myD-H []Letter Detailed phone message OK? yes Are there any other people with whom we may discuss your care? 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 Patient is new and self-referred to the clinic for the following: -Face check multiple dark spots on face. Asymptomatic. No previous treatment. Medications: Reviewed in eD-H Allergies: Reviewed in eD-H Skin Examination: Focused skin examination of the face was normal with the exception of the findings below. Assessment/Plan: # Neoplasm of unspecified behavior of skin Ddx:ink spot lentigo vs lentigo with regression r/o lentigo maligna- 3 mm medium brown irregular papule on left cheek - Joint decision to proceed with biopsy for diagnostic clarification - Procedure: Skin shave biopsy The patient's verbal consent for shave biopsy was obtained. Risk of incomplete removal, recurrence,bleeding, scar, and pain reviewed. Alcohol preparation was used. Anesthesia obtained with 1% lidocaine with epinephrine. A shave biopsy was obtained and the specimen was sent to pathology for histologic evaluation. Vaseline and bandage were applied. Wound care was reviewed. # Seborrheic keratoses - connolly/brown waxy stuck-on papules and plaques on the trunk and extremities. - Reassured of the benign nature of these lesions - No treatment needed # Solar lentigines - 0.3-0.6cm light-brown evenly pigmented, well-demarcated macules in a photodistributed pattern on the face, trunk and extremities. - Recommend diligent sun protection (hats/shade/clothing/sunscreen) - Discussed warning signs of skin cancer -Patient quoted $450 full face for IPL & was given the FAQ AVS. # Dermatitis vs irritant contact dermatitis- erythematous scaly patch on left nostril - Start Rx hydrocortisone 2.5% cream: Apply to affected area of the nose twice daily as needed. Figure 1 Photo(s) taken and charted with patient's verbal consent. Other: N/A RTC: pending path []Note routed to city secretary []Recall placed in scheduling system []Appointment scheduled at checkout Scribe attestation: Jennifer Miller RN has performed the documentation for this encounter in the presence of and acting as a scribe for Garfield Samuels MD. I performed the above scribed service and agree with the accuracy of the documentation in this encounter. Reviewed and signed by: Garfield Samuels MD Dermatology [facility] * Garfield Samuels MD - 01/24/2023 10:30 AM EST Biopsy results: Consistent with Lentigo -benign pigmented lesion -no further intervention required Seen and reviewed by: Garfield Samuels MD Staff Racking Technician Department of Dermatology documented in this encounter Plan of Treatment Not on file documented as of this encounter Procedures Procedure Name Priority Date/Time Associated Diagnosis Comments SPECIMEN TO PATHOLOGY Routine 01/24/2023 10:45 AM EST Neoplasm of unspecified behavior of bone, soft tissue, and skin SURGICAL PATHOLOGY REPORT Routine 01/24/2023 10:44 AM EST documented in this encounter Results * Specimen to Pathology (01/24/2023 10:45 AM EST) AP Specimen 01/24/2023 10:4 5 AM EST 01/24/2023 10:45 AM EST Narrative [facility] - 01/24/2023 10:45 AM EST Specimen requisition ordered. ??Separate Pathology report to follow Garfield Samuels MD PATHOLOGY/CYTOLOGY [facility] [place] [address] * Surgical Pathology Report (01/24/2023 10:44 AM EST) Final Diagnosis [id number] ? Location: [facility] The signing pathologist has (i) examined the relevant preparation(s) for the specimen(s) and (ii) rendered or confirmed the diagnosis(es). . ?Surgical Pathology DIAGNOSIS L eft cheek, skin shave biopsy: - ??Basal layer hyperpigmentation overlying scattered melanophages, consistent with lentigo Electronically signed by: ?Troy SMITH, PhD, [facility] Verified: ??01/31/2023 11:12 ??Dermatopathologist Performed at: ??-[facility], [place] [address] Iron Worker Foreman: Ly Goodrich MD, FCAP, ??CLIA Certificate: [id number] SPECIMEN(S) SUBMITTED A - left cheek, skin shave biopsy (1) CLINICAL INFORMATION Ink spot lentigo vs lentigo with regression rule out lentigo maligna -3 mm medium brown irregular papule on left cheek SPECIMEN PROCESSING A - Labeled/Fixative: Patient demographics, formalin. Quantity/Size: ??Single, 0.6 x 0.5 x 0.1 cm. Tissue Description: Shave of white skin. Sections/Processing: Inked, bisected and entirely submitted in 1 cassette labeled A1. ??sdy 01/31/2023 11:12 AM EST [facility] SPECIMEN FROM SKIN / Unknown 01/24/2023 10:44 AM EST 01/24/2023 10:44 AM EST Garfield Samuels MD PATHOLOGY/CYTOLOGY O RDERABLES [facility] [place] [id number] [facility] [place] [address] documented in this encounter Visit Diagnoses Diagnosis Neoplasm of unspecified behavior of bone, soft tissue, and skin Seborrheic keratosis Other seborrheic keratosis Lentigines Other dyschromia Dermatitis Contact dermatitis and other eczema, due to unspecified cause documented in this encounter Care Teams Supervisor [employer] Hat Production Relationship Specialty Start Date End Date Candie Skaggs MD [address] [place] [address] PCP - General Family Medicine 03/19/19 documented as of this encounter
--- OUTSIDE RECORDS SUMMARY | 2023-10-08 23:30 | XMS_ITS | Encounter Summary ---
Author Organization [facility] [place] [address] Care Team Providers Care Invoice Checker Name Role Phone Candie Skaggs MD Primary Care Provider [phone] Encounter Details Date Type Department Care Team (Latest Contact Info) Description 06/10/2022 Travel Social History Tobacco Use Types Packs/Day Years [...] on file documented as of this encounter Plan of Treatment Not on file documented as of this encounter Visit Diagnoses Not on filedocumented in this encounter Care Teams Invoice Checker Relationship Specialty Start Date End Date Candie Skaggs MD [address] [place] [address] PCP - General Family Medicine 03/19/19 documented as of this encounter
--- OUTSIDE RECORDS SUMMARY | 2023-10-08 23:30 | XMS_ITS | Continuity of Care Document ---
Author Organization [facility] Address [address] [place] [address] Assessment No assessment recorded. Plan of Treatment Reminders Order Date Submit Date Provider Last Modified By Organization Details Last Modified Time Details Appointments Office Visit 30 2023 02:00P M Not available Not available Not available Medicare Wellness 40 (Subs) 2023 11:20A M Not available Not available Not available Lab urinalysi s, complete [address] [facility] (Registration ), [address] [place] [address] [place], [address], 10/08/2023 16:03:58 CMP, serum or plasma 2023 024 [facility] (Registration ), [address] [place] [address] [place], [address], 10/08/2023 21:31:32 lipase, serum or plasma 2023 024 [facility] (Registration ), [address] [place] [address] [place], [address], 10/08/2023 15:40:40 CBC w/ diff 2023 024 [facility] (Registration ), [address] [place] [address] [place], [address], 10/08/2023 15:35:20 urinalysi s, dipstick 2023 024 [facility], [address] [place] [address], [phone], 10/08/2023 15:28:01 magnesium , serum or plasma 2023 024 [facility] (Registration ), [address] [place] [address] [place], [address], 10/08/2023 15:35:18 Referral None recorded. Procedures None recorded. Surgeries None recorded. Imaging electroca rdiogram [address], [address] [place] [address], [phone], 10/08/2023 17:26:09 Medication Orders simethico ne 80 mg chewable tablet 2023 024 [facility], [address] [place] [address], [id number], 10/08/2023 15:27:58 pantopraz ole 20 mg tablet,de layed release 2023 024 [facility], [address] [place] [address], [address], 10/08/2023 15:27:58 Valtrex 500 mg tablet 2023 024 [facility], [address] [place] [address], [address], 10/08/2023 15:27:58 Patient TargetsNo targets recorded. Patient InstructionsNo instructions recorded. 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, atypical nevus L cheek Referring Physician: Candie Skaggs, Family Medicine, Encounter Date: 12/31/2022 Results Created Date Observation Date Name Description Value Unit Range Abnormal Flag LastModifiedBy Organization Detail LastModifiedTime 10/08/19 24 10/08/2023 urina lysis , dipst ick Leukocytes Negati ve Not Available [facility] [address] [place], [address], 10/08/2023 15:13:16 10/08/19 24 10/08/2023 urina lysis , dipst ick Nitrite negati ve Not Available [address], [address], 10/08/2023 15:13:16 10/08/19 24 10/08/2023 urina lysis , dipst ick Urobilinogen .2 Not Available [address], [address], 10/08/2023 15:13:16 10/08/19 24 10/08/2023 urina lysis , dipst ick Protein Negati ve Not Available [address], [address], 10/08/2023 15:13:16 10/08/19 24 10/08/2023 urina lysis , dipst ick pH 6.0 Not Available [address], [address], 10/08/2023 15:13:16 10/08/19 24 10/08/2023 urina lysis , dipst ick Blood Non-He molyze d: Modera te Not Available [address], [address], 10/08/2023 15:13:16 10/08/19 24 10/08/2023 urina lysis , dipst ick Specific Brewer 1.015 Not Available [address], [address], 10/08/2023 15:13:16 10/08/19 24 10/08/2023 urina lysis , dipst ick Ketone Modera te Not Available [address], [address], 10/08/2023 15:13:16 10/08/19 24 10/08/2023 urina lysis , dipst ick Bilirubin Negati ve Not Available [address], [address], 10/08/2023 15:13:16 10/08/19 24 10/08/2023 urina lysis , dipst ick Glucose Negati ve Not Available [address], [address], 10/08/2023 15:13:16 10/08/19 24 10/08/2023 urina lysis , dipst ick Appearance Clear Not Available [address], [address], 10/08/2023 15:13:16 10/08/19 24 10/08/2023 urina lysis , dipst ick Color Pale Yellow Not Available [address], [address], 10/08/2023 15:13:16 10/08/19 24 10/08/2023 elect federico diogr am No observ ation record ed. [email or web address] [address], [address], 10/08/2023 17:26:08 10/08/19 elect rocar diogr am No observ ation record ed. [email or web address] Not Available 10/08/2023 16:29:35 Result Notes None recorded. Problems Name Status Onset Date Resolution Date Notes Provider Name and Address Organization Details Recorded Time Hyperlipidemi a Active 2004 [facility] 4 11:53:59 Gastroesophag eal reflux disease without esophagitis Active 2001 [facility] 4 11:46:37 Lichen planus Active 2002 [facility] in 1990s [facility] 4 11:54:41 History of disorder of digestive system Active 2003 Hx of diverticuliti s -- recurrent bouts since 2003 [facility] 4 11:49:07 History of clinical finding in subject Completed 200904/07/2009 Not Available [facility] 3 05:36:29 Essential hypertension Active 2004 [facility] 4 11:46:26 Overweight Active 2013 (BMI 25-29.9) [facility] 4 11:55:29 Herpesvirus infection Active 2014 Genital herpes -- L buttock [facility] 4 11:48:00 Haque's esophagus Active 2014 last endo 11/01 [facility] 4 11:45:08 Anxiety disorder Active 2014 [facility] 4 11:10:17 Pain in thoracic spine Completed 201511/23/2015 11/16/2015 - Comments only - Candie Skaggs MD - Muscular, R trap vs rhomboids. Advised local massage, muscle rubs, heat, etc. 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 Not Available [facility] 3 05:36:31 Disorder of skin appendage Completed 201804/17/2018 03/22/2018 - Comments only - Candie Skaggs MD - And cellulitis, empiric coverage for possible fungal infection ineffective. Staph or other bacterial infection seems more likely therefore. Some sort of contact dermatitis is also in differential but less likely. Will treat with cephalexin. May apply ywxw-ame-jjvr ter hydrocortison e cream and/or use low-dose Benadryl as needed for itching. Cautioned regarding potential side effects of latter. Problem Code: L73.9; Problem Code Type: ICD-10; Not Available [facility] 3 05:36:31 Cellulitis Completed 201804/17/2018 Problem Code: L03.90; Problem Code Type: ICD-10; Not Available [facility] 3 05:36:31 Pericardial effusion Active 2018 small, chronic since 2018, noted again on CT 01/2021 [facility] 4 11:56:54 Atrophic vaginitis Active 2018 An James [facility] 4 11:10:34 General examination of patient Active 2019 [facility]. 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 1 minute. -Given brief nature of sx will continue to monitor and she is encouraged to call with any concerns. Problem Code: M79.659; Problem Code Type: ICD-10; Not Available [facility] 3 05:36:31 Heart murmur Active 2019 no signif valvular dz 2018 echo An Jacob null, [facility]. 4 11:47:32 History of polymyalgia rheumatica Active 2020 dx 02/2020, started prednisone 20mg qd 02/29/20, off by 2022 An Jacob [facility], [facility], [facility]. 4 11:51:47 History of pulmonary embolus Active 2020 and 2020, unprovoked (2nd occurred 5 days after J&J Covid vaccine), [facility] 4 11:53:43 Long-term current use of anticoagulant Active 2020 An Jacob [facility], [facility], [facility]. 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 4 11:54:24 Actinic keratosis Active 2020 distal L nose An Jacob [facility], [facility]. 4 11:10:06 Elevated blood-pressur e reading without diagnosis of hypertension Active 2020 Labile hypertension [facility] 4 11:46:14 Screening for osteoporosis Active 2022 [facility] 4 11:57:55 Hearing loss Completed 202204/17/2022 Problem Code: H91.90; Problem Code Type: ICD-10; Not Available [facility] 3 05:36:34 Trigger finger of right hand Active 2022 Trigger finger of right ring finger [facility] 4 11:58:33 Lumbosacral radiculopathy Active 2022 [facility] 4 11:55:12 Pulmonary embolism Completed 202103/12/2022 Problem Code: I26.99; Problem Code Type: ICD-10; Not Available [facility] 3 05:36:43 Diverticuliti s Completed 200311/13/2022 Not Available [facility] 3 05:36:43 Pain in right hip joint Completed 202011/13/2022 12/12/2020 - Comments only - Candie Sakggs MD - will obtain xray of hip although i suspect pain is more muscular in origin. If no evidence of severe DJD, would refer to PT. (otherwise to ortho). Reviewed basic stretches she can try meanwhile. Problem Code: M25.551; Problem Code Type: ICD-10; Not Available [facility] 3 05:36:44 Diplopia Completed 201111/16/2015 Problem Code: H53.2; Problem Code Type: ICD-10; Not Available [facility] 3 05:36:44 Dyspnea Completed 201703/12/2022 Problem Code: R06.09; Problem Code Type: ICD-10; Not Available [facility] 3 05:36:44 Chronic rhinitis Completed 201703/12/2022 Problem Code: J31.0; Problem Code Type: ICD-10; Not Available [facility] 3 05:36:44 Localized eruption of skin Completed 201903/07/2020 Problem Code: R21; Problem Code Type: ICD-10; Not Available [facility] 3 05:36:45 Neoplasm of skin Completed 202001/23/2021 Not Available [facility] 3 05:36:45 Hypertensive disorder Completed 200411/13/2022 Not Available [facility] 3 05:36:45 Counseling Completed 202003/12/2022 Problem Code: Z71.89; Problem Code Type: ICD-10; Not Available [facility] 3 05:36:46 Pulmonary embolism Completed 201011/08/2014 Problem Code: 415.19; Problem Code Type: ICD-9; Not Available [facility] 3 05:36:47 Dysphagia Completed 201703/12/2022 Problem Code: R13.10; Problem Code Type: ICD-10; Not Available [facility] 3 05:36:47 Obesity Completed 201311/13/2022 Problem Code: E66.9; Problem Code Type: ICD-10; Not Available [facility] 3 05:36:47 Greater trochanteric pain syndrome Completed 201505/23/2017 Problem Code: M70.60; Problem Code Type: ICD-10; Not Available [facility] 3 05:36:48 Long-term current use of drug therapy Completed 202003/12/2022 Problem Code: Z79.899; Problem Code Type: ICD-10; Not Available [facility] 3 05:36:48 Fatigue Completed 202011/13/2022 Problem Code: R53.83; Problem Code Type: ICD-10; Not Available [facility] 3 05:36:49 Essential hypertension Completed 201703/12/2022 Problem Code: I10; Problem Code Type: ICD-10; An BellamyMICHAEL khan - [facility], [facility]. 4 11:46:26 Genital herpes simplex Completed 201411/13/2022 Not Available [facility] 3 05:36:49 Nicotine dependence Completed 201003/12/2022 Problem Code: Z87.891; Problem Code Type: ICD-10; Not Available [facility] 3 05:36:49 Lumbosacral radiculopathy Completed 201902/25/2020 Problem Code: M54.16; Problem Code Type: ICD-10; An BellamyMICHAEL khan - [facility] 4 11:55:12 Diverticuliti s of intestine Completed 200311/13/2022 01/23/2021 - Comments only - Candie Skaggs MD - and recurrent. Completing Abx, sx resolving. REviewed general management strategies. Problem Code: K57.92; Problem Code Type: ICD-10; Not Available [facility] 3 05:36:51 Pulmonary embolism Completed 202011/13/2022 07/05/2020 - Comments only - Candie Skaggs MD - Therapeutic INR, continue current Coumadin with recheck in 1 week. Consider transition to Eliquis given availability of reversal agent. Age appropriate dosing would be 2.5 mg twice daily, starting once INR is less than 2. Problem Code: I26.99; Problem Code Type: ICD-10; Not Available [facility] 3 05:36:52 Pain in lower limb Completed 202003/07/2020 Problem Code: M79.606; Problem Code Type: ICD-10; Not Available [facility] 3 05:36:52 Gastroesophag eal reflux disease Completed 200111/13/2022 Not Available [facility] 3 05:36:53 Screening for disorder Completed 201505/23/2017 Problem Code: Z13.9; Problem Code Type: ICD-10; Not Available [facility] 3 05:36:53 Health condition feared but not present Completed 201603/07/2017 Problem Code: Z71.1; Problem Code Type: ICD-10; Not Available [facility] 3 05:36:53 Blood glucose outside reference range Completed 201811/13/2022 03/12/2022 - Comments only - Candie Skaggs MD - stable, A1C 6.2. Continue lifestyle management. Problem Code: R73.09; Problem Code Type: ICD-10; Not Available [facility] 3 05:36:53 Vomiting Completed 202010/16/2020 Problem Code: R11.10; Problem Code Type: ICD-10; Not Available [facility] 3 05:36:54 Pelvic and perineal pain Completed 201503/07/2017 Problem Code: R10.2; Problem Code Type: ICD-10; Not Available [facility] 3 05:36:55 Dyspnea Completed 201706/06/2017 Problem Code: R06.00; Problem Code Type: ICD-10; Not Available [facility] 3 05:36:55 Polymyalgia rheumatica Completed 202011/13/2022 04/23/2021 - Comments only - Candie Skaggs MD - Well-controll ed on very low-dose prednisone, underlying DJD may make final wean off prednisone difficult. Will review inflammatory markers likely drawn by consulting physician in late March. Continue current 2 to 3 mg a day. Problem Code: M35.3; Problem Code Type: ICD-10; Not Available [facility] 3 05:36:56 Eustachian tube disorder Completed 201511/16/2015 Problem Code: H69.80; Problem Code Type: ICD-10; Not Available [facility] 3 05:36:56 Acute sinusitis Completed 201511/16/2015 Problem Code: J01.90; Problem Code Type: ICD-10; Not Available [facility] 3 05:36:57 History of disorder of digestive system Completed 201411/13/2022 Problem Code: Z87.19; Problem Code Type: ICD-10; [facility] 4 11:49:07 Blood chemistry outside reference range Completed 201706/26/2020 Problem Code: R79.89; Problem Code Type: ICD-10; Not Available [facility] 3 05:36:58 Type 2 diabetes mellitus without complication Completed 201811/13/2022 04/23/2021 - Comments only - Candie Skaggs MD - Diet controlled, due for follow-up A1c in 1 month. Will review whether this was checked with recent labs. Problem Code: E11.9; Problem Code Type: ICD-10; Not Available [facility] 3 05:36:59 Seborrheic keratosis Active 2022 [facility] 4 11:57:59 Chronic dermatitis Active 2022 [facility] 4 11:45:32 Problem Notes None recorded. Procedures Surgical History None recorded. Imaging Results Imaging Date Name Status LastModified by Organization Details LastModified Time 10/08/2023 electrocardiogram completed [address], [address], 10/08/2023 17:26:08 Procedure Notes None recorded. Medical Equipment None Reported. Allergies Allergen ID Allergen Name Allergen Category Reaction Reaction Severity Criticality Documentation Date Start Date Code Code System Note Provider Name and Address Organization Details Recorded Time 05530 lisinopri l medicatio n rash moderate Not available 12/27/20222011 98877 RxNorm [facility] 4 11:59:12 73130 codeine medicatio n other moderate Not available 12/27/20222001 2670 RxNorm No react ion enter ed [facility] 4 11:58:58 42608 Norvasc medicatio n other moderate Not available 06/20/20232011 11683 RxNorm face burni ng An James [facility] 11:59:52 Medications Name Sig Start Date Stop Date Status Note LastModified by Organization Details LastModified Time clonidine HCl 0.1 mg tablet 1TAB twice daily 06/04 completed Not Available Not Available Not Available Toprol XL 25 mg tablet,exte nded release bid, at bedtime and each am 03/12 completed Not Available Not Available Not Available Vitamin C 500 mg tablet 2017 active Not Available Not Available Not Avai lable azithromyci n 250 mg tablet TAKE 2 TABLETS BY MOUTH AT ONCE IF NEEDED FOR DIARRHEA 10/07 completed Not Available Not Available Not Available prochlorper azine maleate 5 mg tablet TAKE ONE TABLET BY MOUTH EVERY 6 HOURS NEEDED FOR NAUSEA active Not Available Not Available No t Available sucralfate 1 gram tablet Take 1 tablet by mouth four times a day replaces suspensio n 12/12 completed Not Available Not Available Not Available prednisone 5 mg tablet 2.5 tabs po qd (12.5mg) until 05/03/20, then 2 tabs po qd (10mg) x 1 mo 2020 active Not Available Not Available Not Avai lable clobetasol 0.05 % topical cream Apply twice a week 2019 active Not Available Not Available Not Avai lable acetazolami de 250 mg tablet TAKE ONE TABLET BY MOUTH TWICE A DAY FOR 7 DAYS WHILE AT ALTITUDE. BEGIN TAKING ONE DAY BEFORE YOUR TRIP 10/07 completed Not Available Not Available Not Available Nexium 40 mg capsule,del ayed release 1po qd 03/23 completed Not Available Not Available Not Available Provigil 100 mg tablet 1 TAB QD 04/01 completed Not Available Not Available Not Available ciprofloxac in 250 mg tablet 1 TAB BID 04/27 completed Not Available Not Available Not Available amlodipine 5 mg tablet 1 TAB daily 05/01 completed Not Available Not Available Not Available Prevacid 30 mg capsule,del ayed release 1 TAB daily 06/07 completed Not Available Not Available Not Available pantoprazol e 20 mg tablet,shahzad yed release Take 1 tablet every day by oral route for 60 days. 2023 active Not Available Not Available Not Avai lable hydrocortis one 2.5 % topical cream with perineal applicator APPLY TO NOSE TWO TIMES A DAY NEEDED active Not Available Not Available No t Available famotidine 20 mg tablet Take 2 tablet by mouth twice a day 1-2 tabs bid 03/12 completed Not Available Not Available Not Available lorazepam 0.5 mg tablet 1 TAB - 07/15 completed Not Available Not Available Not Available dicyclomine 20 mg tablet TAKE ONE TABLET BY MOUTH THREE TIMES A DAY NEEDED FOR BOWEL SPASMS active Not Available Not Available No t Available ranitidine 75 mg tablet Take 1 tab by mouth daily as needed for heartburn 2017 active Not Available Not Available Not Avai lable prednisone 1 mg tablet Take 2 tablet by mouth once a day 03/12 completed Not Available Not Available Not Available phenazopyri dine 100 mg tablet TAKE ONE TABLET BY MOUTH THREE TIMES A DAY NEEDED FOR BLADDER INFECTION 10/07 completed Not Available Not Available Not Available Hyzaar 100 mg-25 mg tablet Take 1 tab by mouth daily 2018 active Not Available Not Available Not Avai lable neomycin-po lymyxin-dex ameth 3.5 mg/mL-10,00 0 unit/mL-0.1 % eye drops INSTILL 1 DROP INTO LEFT EYE 4 TIMES A DAY FOR 7 DAYS active Not Available Not Available No t Available Cipro 500 mg tablet 1 TAB BID 02/05 completed Not Available Not Available Not Available nystatin 100,000 unit/gram topical cream apply twice daily to affected area 02/14 completed Not Available Not Available Not Available irbesartan 300 mg-hydrochl orothiazide 12.5 mg tablet Take 1 tab by mouth daily 07/20 completed Not Available Not Available Not Available warfarin 2 mg tablet Take 1 tablet by mouth once a day take together with 5 mg tablets 06/26 completed Not Available Not Available Not Available warfarin 5 mg tablet 1 tablet by mouth once a day take together with 2 mg 07/14 completed Not Available Not Available Not Available Valtrex 1 gram tablet daily 03/12 completed Not Available Not Available Not Available omeprazole 20 mg capsule,del ayed release Take 1 capsule by mouth twice a day for 3 weeks, then one capsule daily 07/25 completed Not Available Not Available Not Available cephalexin 500 mg tablet Take 1 tab by mouth three times daily 03/27 completed Not Available Not Available Not Available Valtrex 500 mg tablet Take 2 tablet by mouth twice a day for 5 days. (2 tabs =1000mg dose) 2023 active Not Available Not Available Not Avai lable aspirin 81 mg tablet 06/26 completed Not Available Not Available Not Available lisinopril 5 mg tablet 04/11 completed Not Available Not Available Not Available hydrochloro thiazide 25 mg tablet 1 tab daily 07/20 completed Not Available Not Available Not Available Levaquin 500 mg tablet 1 TAB daily 09/04 completed Not Available Not Available Not Available irbesartan 150 mg tablet Take 1 by mouth daily 07/20 completed Not Available Not Available Not Available nifedipine ER 60 mg tablet,exte nded release TAKE 1 TABLET BY MOUTH DAILY active Not Available Not Available No t Available ondansetron 4 mg disintegrat ing tablet DISSOLVE ONE TO TWO TABLETS ON THE TONGUE EVERY 8 HOURS NEEDED FOR NAUSEA AND VOMITING active Not Available Not Available No t Available Coumadin 1 mg tablet 1 TAB QD 04/01 completed Not Available Not Available Not Available losartan 100 mg tablet TAKE ONE TABLET BY MOUTH EVERY DAY active Not Available Not Available No t Available Lipitor 10 mg tablet 0.5 tab @HS 03/07 completed Not Available Not Available Not Available fluticasone propionate 50 mcg/actuati on nasal spray,suspe nsion 2 spray into both nostrils once a day 10/07 completed Not Available Not Available Not Available Adult Aspirin EC Low Strength 81 mg tablet,shahzad yed release 1 TAB QD 2011 active Not Available Not Available Not Avai lable amoxicillin 875 mg-brad mauricio clavulanate 125 mg tablet Take 1 tablet by mouth twice a day 10/26 completed Not Available Not Available Not Available simethicone 80 mg chewable tablet Take 1 tablet every 6 hours by oral route as needed for 7 days, for bloating or gas. 2023 active Not Available Not Available Not Avai lable neomycin 3.5 mg/g-polymy jacy B 10,000 unit/g-dexa meth 0.1 % eye oint APPLY A 1-INCH RIBBON ON AFFECTED EYELID(S) TWO TIMES A DAY FOR 8 WEEKS 10/07 completed Not Available Not Available Not Available Estrace 0.01% (0.1 mg/gram) vaginal cream apply pea-sized amount to external vulva daily x 1 week then 2-3x/week 2018 active Not Available Not Available Not Avai lable azithromyci n 500 mg tablet TAKE ONE TABLET BY MOUTH EVERY DAY FOR 3 DAYS FOR TRAVELER' S DIARRHEA WITH FEVER 12/31 completed Not Available Not Available Not Available ezetimibe 10 mg tablet TAKE ONE TABLET BY MOUTH EVERY DAY active Not Available Not Available No t Available Lovenox 300 mg/3 mL subcutaneou s solution 70 mg subcutane ously twice a day 06/28 completed Not Available Not Available Not Available nitrofurant oin monohydrate /macrocryst als 100 mg capsule TAKE ONE CAPSULE BY MOUTH TWICE A DAY FOR BLADDER INFECTION 10/07 completed Not Available Not Available Not Available chlorhexidi ne gluconate 0.12 % mouthwash BRUSH AND FLOSS TEETH, RINSE REGULAR TOOTHPAST E OUT. SWISH 15ML FOR 30 SECONDS, THEN SPIT. DO NOT SWALLOW 10/07 completed Not Available Not Available Not Available Hyzaar 100 mg-12.5 mg tablet Take 1 tablet once a day 2018 active Not Available Not Available Not Avai lable Lovenox twice daily 06/25 completed Not Available Not Available Not Available Clobetasol 17 Propionate cream daily 11/08 completed Not Available Not Available Not Available Vitamin D3 active Not Available Not Av ailable Not Available Metamucil 03/12 completed Not Available Not Available Not Available Librax (with clidinium) 1 CAP at bedtime 05/20 completed Not Available Not Available Not Available Simethicone -80 1 TAB four times daily 07/19 completed Not Available Not Available Not Available Zostavax (PF) once IM 04/01 completed Not Available Not Available Not Available hydrochloro thiazide 12.5 mg tablet TAKE ONE TABLET BY MOUTH EVERY DAY active Not Available Not Available No t Available Prevnar 13 (PF) 0.5 mL intramuscul ar syringe 0.5ml IM inj 11/15 completed Not Available Not Available Not Available Xarelto 10 mg tablet Take 1 tablet by mouth once a day 2023 active Not Available Not Available Not Avai lable Xarelto 20 mg tablet Take 1 tablet by mouth once a day 2020 active Not Available Not Available Not Avai lable potassium chloride ER 20 mEq tablet,exte nded release TAKE ONE-HALF TABLET BY MOUTH EVERY DAY active Not Available Not Available No t Available psyllium husk 0.4 gram capsule active Not Available Not Available Not Available magnesium 200 mg (as magnesium oxide) tablet active Not Available Not Available Not Available Shingrix (PF) 50 mcg/0.5 mL intramuscul ar suspension, kit one IM now and repeat in 2-6 months 12/12 completed Not Available Not Available Not Available Xarelto 2.5 mg tablet 2 tabs daily x 10 days while (and after) taking Paxlovid 04/12 completed Not Available Not Available Not Available Paxlovid 300 mg (150 mg x 2)-100 mg tablets in a dose pack TAKE 2 NIRMATREL VIR TABLETS AND 1 RITONAVIR TABLET TOGETHER BY MOUTH TWICE DAILY FOR 5 DAYS 10/07 completed Not Available Not Available Not Available Vitals Date Recorded Body height Oxygen saturation Oxygen saturation in Arterial blood by Pulse oximetry Heart rate Body temperature Systolic blood pressure Diastolic blood pressure Provider Name and Address Organization Details Last Updated DateTime 4 154.94 cm 98 % 98 % 58 /min 97.3 [degF] 179 mm[Hg] 79 mm[Hg] ELISHA SCOTT MA [facility] 4 14:13:49 Social History Question Answer Notes LastModified by Organizat ion Details LastModified Time Tobacco Smoking Status Former Smoker SUHAIL MCGEE RN [facility], [facility] 12/31/2022 16:07:55 Do You Have An Advance Directive? Yes Information not available 12/31/2022 When Did You Quit Smoking? 16+yearssinc elastcigaret te Information not available 12/31/2022 Are There Any Guns Present In Your Home? No Information not available 12/31/2022 Do You Have A Medical Power Of Director Instructional Material? Yes Information not available 12/31/2022 Do You Have Smoke And Carbon Monoxide Detectors In Your Home? Yes Information not available 12/31/2022 At What Age Did You Start Smoking Tobacco? 20 Information not available 12/31/2022 Are You Passively Exposed To Smoke? No Information not available 12/31/2022 Are There Any Smokers In Your House? No Information not available 12/31/2022 Sex: Female Functional Status None recorded. Mental Status None recorded. Family History Relationship Description Onset Age of this Age Resolved Age Notes Notes:*Problem: Family Histo ry: Mother: age 92 old age Father: ASVD - was a heavy smoker Sisters: 1 Cancer of the Breast mets to stomach and bone Brothers: 1 A&W w DJD Family History of: Hypertension: yes Hyperlipidemia: yes Coronary heart disease: yes Diabetes mellitus: no Breast cancer: yes Colorectal cancer: no Prostate cancer: no Alcoholism: no Mental illness: no Medical History No medical history recorded. Gynecological HistoryNo gynecological history recorded. Obstetrics History GPAL:G 0 P 0 0 0 0 Immunizations Vaccine Type Date Status Provider Name and Address Organization Details Recorded Time Tdap 07/15/2012 completed Not Available [facility] 03:53:28 zoster live 05/08/2009 completed Not Available [facility] 12/27/2022 03:53:29 Influenza, high-dose, trivalent, PF 10/25/2016 completed Not Available [facility] 12/27/2022 03:53:29 Influenza, high-dose, trivalent, PF 12/04/2017 completed Not Available [facility] 12/27/2022 03:53:29 Td(adult) unspecified formulation 02/03/2006 completed Not Available [facility] 12/27/2022 03:53:29 Influenza, split virus, trivalent, preservative 2014 completed Not Available [facility] 12/27/2022 03:53:30 Influenza, split virus, trivalent, preservative 11/16/2015 completed Not Available [facility] 12/27/2022 03:53:30 Influenza, high-dose, quadrivalent, PF 12/15/2019 completed Not Available [facility] 12/27/2022 03:53:31 COVID-19, mRNA, LNP-S, PF, 100 mcg/0.5mL dose or 50 mcg/0.25mL dose 04/27/2021 completed Not Available [facility] 12/27/2022 03:53:31 COVID-19 vaccine, vector-nr, rS-Ad26, PF, 0.5 mL 06/13/2020 completed Not Available [facility] 12/27/2022 03:53:32 COVID-19 vaccine, vector-nr, rS-Ad26, PF, 0.5 mL 12/12/2020 completed Not Available [facility] 12/27/2022 03:53:32 Pneumococcal conjugate PCV20, polysaccharide [id number] conjugate, adjuvant, PF 04/20/2022 completed Not Available [facility] 12/27/2022 03:53:32 COVID-19, mRNA, LNP-S, PF, 50 mcg/0.5 mL dose 01/17/2022 completed Not Available [facility] 12/27/2022 03:53:32 pneumococcal polysaccharide PPV23 07/15/2012 completed Not Available [facility] 2022 03:53:33 Hep B, unspecified formulation 05/08/2009 completed Not Available [facility] 12/27/2022 03:53:33 Hep A, unspecified formulation 10/14/2014 completed Not Available [facility] 12/27/2022 03:53:33 Hep A, unspecified formulation 02/03/2006 completed Not Available [facility] 12/27/2022 03:53:33 influenza, unspecified formulation 11/27/2001 completed Not Available [facility] 12/27/2022 03:53:34 influenza, unspecified formulation 11/29/2009 completed Not Available [facility] 12/27/2022 03:53:34 influenza, unspecified formulation 12/11/2007 completed Not Available [facility] 12/27/2022 03:53:34 influenza, unspecified formulation 12/11/2011 completed Not Available [facility] 12/27/2022 03:53:34 influenza, unspecified formulation 12/28/2021 completed Not Available [facility] 12/27/2022 03:53:34 influenza, unspecified formulation 01/02/2006 completed Not Available [facility] 12/27/2022 03:53:34 influenza, unspecified formulation 01/07/2003 completed Not Available [facility] 12/27/2022 03:53:34 influenza, unspecified formulation 01/25/2005 completed Not Available [facility] 12/27/2022 03:53:35 influenza, unspecified formulation 01/25/2013 completed Not Available [facility] 12/27/2022 03:53:35 polio, unspecified formulation 03/10/2006 completed Not Available [facility] 12/27/2022 03:53:35 polio, unspecified formulation 09/08/2006 completed Not Available [facility] 12/27/2022 03:53:35 polio, unspecified formulation 02/03/2006 completed Not Available [facility] 12/27/2022 03:53:35 typhoid, unspecified formulation 10/14/2014 completed Not Available [facility] 12/27/2022 03:53:36 typhoid, unspecified formulation 02/03/2006 completed Not Available [facility] 12/27/2022 03:53:36 influenza, unspecified formulation 12/18/2022 completed LINDEN BELL, [facility] 12/31/2022 16:14:04 SARS-COV-2 (COVID-19) vaccine, UNSPECIFIED 12/18/2022 completed LINDEN BELL, [facility] 12/31/2022 16:14:46 Past Encounters Encounter ID Performer Location Encounter Start Date Encounter Closed Date Diagnosis/Indication Diagnosis SNOMED-CT Code [id number] Zee Mott PA-C [facility] [address] [place] [address] 10/08/2023 13:46:51 10/08/2023 15:00:54 Herpesvirus infection [id number] Epigastric pain 48035195 Abdominal bloating 29943 9008 Hypomagnesemia [id number] Asymptomat ic microscopic hematuria [id number] 09 Increased blood pressure 37355905 Health Concerns Section Related Observation LastModified by Organization Detai ls LastModified Time None Recorded Concern Status LastModified by Organization Details LastModified Time None Recorded Payers Encounter Date Sequence Insurance Name Policy Number Policy Baez Covered Member ID Baez Member ID Guarantor Name 10/08/2023 1 [place]ICARE [place] [employer] Abby Ruffin [id number] Abby Ruffin Notes Date Note Type Note Provider Name and Address Organization Details Recorded Time 10/08/2023 text/html HPI Notes: Pt is an 87 y/o F with hx of gastritis, Barretts Esophagus here for epigastric pain, excessive belching, gas, nausea. This has been intermittent over the past 2 weeks, but has been worsening over the last 5-6 days. Pt states she has had similar episodes of this in the past. She has tried pepcid, mylanta, milk of magnesia with temporary relief as per her . She states she is not able to eat any food today but has been able to eat small meals earlier this week. BM wnl. UO wnl. Patient denies blood in stools, black tarry stools, fever, chest pain, shortness of breath, vomiting, leg swelling, skin rash, syncope, hemoptysis. She has appt with GI in [place] at unknown time in the future. Zee Mott PA-C [address], [place], [address], [facility]. 10/08/2023 17:46:24 OBGyn Episode No OBEpisode recorded.
--- OUTSIDE RECORDS SUMMARY | 2023-10-08 23:30 | XMS_ITS | Data Portability ---
Author Organization [place] - [facility], [facility] Address [address] [place] [place] [address] Assessment Encounter Date Assessment Date Assessment LastModified by Organization Details LastModified Time 12/31/2022 12/31/2022 Patient presente d to office today for their Medicare Annual Wellness Visit. Personalized prevention plan completed and reviewed with patient. Patient was given copy of PPP at conclusion of visit. Education was provided on healthy nutrition, including a diet rich in fruits and vegetables, minimizing simple carbohydrates, salt, and saturated fats. Encouraged regular cardiovascular exercise such as walking at least 30 minutes daily, 5 times per week. Emphasized preventive health measures and educated pt on fall prevention and community-based lifestyle interventions to help reduce health risks and promote healthy living. [email or web address] Not available 12/31/2022 16:53:25 Plan of Treatment Reminders Order Date Submit Date Provider Last Modified By Organization Details Last Modified Time Details Appointments Office Visit 30 2023 02:00P M Not available Not available Not available Medicare Wellness 40 (Subs) 2023 11:20A M Not available Not available Not available Lab urinalysi s, complete 2023 024 [email or web address] [facility] (Registration ), [address] [place] [address] [place], [address], 10/08/2023 16:03:58 CMP, serum or plasma 2023 024 RAPHAEL [facility] (Registration ), [address] [place] [address] [place], [address], 10/08/2023 21:31:32 lipase, serum or plasma 2023 024 [facility] (Registration ), [address] [place] [address] [place], [address], 10/08/2023 15:40:40 CBC w/ diff 2023 024 [facility] (Registration ), [address] [place] [address] [place], [address], 10/08/2023 15:35:20 urinalysi s, dipstick 2023 024 [facility], [address] [place] [address], [phone], 10/08/2023 15:28:01 magnesium , serum or plasma 2023 024 [facility] [address] [place] [address] [place], [address], 10/08/2023 15:35:18 Referral dermatolo gist referral 2022 023 [email or web address] [facility] ([facility]), [address] [place], [address], 02/02/2023 18:26:04 Procedures None recorded. Surgeries None recorded. Imaging electroca rdiogram [address], [address] [place] [address], [phone], 10/08/2023 17:26:09 Medication Orders K-Tab 20 mEq tablet,ex tended release 2022 023 [facility], [address] [place], [address], 12/31/2022 17:09:18 Zetia 10 mg tablet 2022 023 ATHENAFAX [facility], [address] [place], [address], 12/31/2022 17:02:40 simethico ne 80 mg chewable tablet 2023 024 [email or web address] [facility], [address] [place] [address], [address], 10/08/2023 15:27:58 pantopraz ole 20 mg tablet,de layed release 2023 024 ksinnema [facility], [address] [place], [address], 10/08/2023 15:27:58 Valtrex 500 mg tablet 2023 024 [email or web address] [facility], [address] [place], [address], 10/08/2023 15:27:58 Patient TargetsNo targets recorded. Patient Instructions Encounter Date Encounter Id Patient Instructions Last Modified By Organization Details Last Modified Time 12/31/2022 [id number] Discussed and explained advance directives such as standard forms to the {{patient caregiv er patient and caregiver}}. Face to face discussion lasted for a duration of ___ minutes. 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, atypical nevus L cheek Referring Physician: Kumar Schultz, Family Medicine, Encounter Date: 12/31/2022 Results Created Date Observation Date Name Description Value Unit Range Abnormal Flag LastModifiedBy Organization Detail LastModifiedTime 12/24/1912/23/2022 lipid panel , blood cholesterol, total, serum 258 mg/dL <200 high Not Available Not Available 09/19/2023 20:47:30 12/24/1912/23/2022 lipid panel , blood HDL 52 mg/dL 40-60 Not Available Not Available 03/2023 20:47:30 12/24/1909 0112/23/2022 lipid panel , blood LDL 179 mg/dL <100 high Not Available Not Available 03/2023 20:47:30 12/24/19 23 12/23/2022 lipid panel , blood triglyceride , 12H fasting, qn, serum or plasma 135 mg/dL <150 Not Available Not Available 20:47:30 12/24/19 23 12/23/2022 HbA1c (hemo globi n A1c), blood HbA1C (hemoglobin A1C), blood 6.1 % <5.7 high Not Available Not Available 09/19/2023 20:47:29 12/24/19 23 12/23/2022 gluco se, QN [mass /volu me], blood glucose ser 114 mg/dL 74-106 high Not Available [facility] [address], [place], [address], 09/19/2023 20:47:29 12/24/19 23 12/23/2022 CMP, serum or plasm a aniongap 10.6 mmol/ L 3-11 normal Not Available Not Available 09/19/2023 20:47:26 12/24/19 23 12/23/2022 CMP, serum or plasm a BUN (blood urea nitrogen), serum or plasma 19 mg/dL 7-18 high Not Available Not Available 20:47:26 12/24/19 23 12/23/2022 CMP, serum or plasm a calcium, qn, serum or plasma 9.5 mg/dL 8.5-10 .1 normal Not Available Not Available 09/19/2023 20:47:26 12/24/19 23 12/23/2022 CMP, serum or plasm a chloride, serum or plasma 104 mmol/ L 98-107 normal Not Available Not Available 09/19/2023 20:47:26 12/24/19 23 12/23/2022 CMP, serum or plasm a CO2, (carbon dioxide), total, serum or plasma 27.4 mmol/ L 21.0-3 2.0 normal Not Available Not Available 09/19/2023 20:47:26 12/24/19 23 12/23/2022 CMP, serum or plasm a creatinine, serum or plasma 1.0 mg/dL 0.55-1 .02 normal Not Available Not Available 09/19/2023 20:47:26 12/24/19 23 12/23/2022 CMP, serum or plasm a eGFR 54.53 (?) mL/mi n/1.7 3m2 mL/min /1.73m 2 Not Available Not Available 09/19/2023 20:47:26 12/24/19 23 12/23/2022 CMP, serum or plasm a potassium, serum or plasma 3.4 mmol/ L 3.5-5. 1 low Not Available Not Available 09/19/2023 20:47:26 12/24/19 23 12/23/2022 CMP, serum or plasm a sodium, serum or plasma 142 mmol/ L 136-14 5 normal Not Available Not Available 09/19/2023 20:47:26 03/21/19 24 03/21/2023 COMPL ETE BLOOD COUNT W/DIF F WBC 5.17 10_3/ uL 4.4-10 .8 normal Not Available [address] [place], [address] 03/21/2023 11:35:40 03/21/19 24 03/21/2023 COMPL ETE BLOOD COUNT W/DIF F RBC 3.74 10_6/ uL 3.93-5 .22 low Not Available [address] [place], [address] 03/21/2023 11:35:40 03/21/19 24 03/21/2023 COMPL ETE BLOOD COUNT W/DIF F HGB 11.8 g/dL 11.2-1 5.7 normal Not Available [address] [place], [address] 03/21/2023 11:35:40 03/21/19 24 03/21/2023 COMPL ETE BLOOD COUNT W/DIF F HCT 35.1 % 36.0-4 6.0 low Not Available [address] [place], [address] 03/21/2023 11:35:40 03/21/19 24 03/21/2023 COMPL ETE BLOOD COUNT W/DIF F MCV 94 fL 80-95 normal Not Available Prudencio hurt [address] [place], [address] 03/21/2023 11:35:40 03/21/19 24 03/21/2023 COMPL ETE BLOOD COUNT W/DIF F MCH 31.6 pg 27.0-3 3.0 normal Not Available [address] [place], [address] 03/21/2023 11:35:40 03/21/19 24 03/21/2023 COMPL ETE BLOOD COUNT W/DIF F MCHC 33.6 % 32.0-3 6.0 normal Not Available [address] [place], [address] 03/21/2023 11:35:40 03/21/19 24 03/21/2023 COMPL ETE BLOOD COUNT W/DIF F RDW 13.0 % 11.7-1 4.6 normal Not Available [address] [place], [address] 03/21/2023 11:35:40 03/21/19 24 03/21/2023 COMPL ETE BLOOD COUNT W/DIF F platelet count 278 10_3/ uL 130-40 0 normal Not Available [address] [place], [address] 03/21/2023 11:35:40 03/21/19 24 03/21/2023 COMPL ETE BLOOD COUNT W/DIF F MPV 9.5 fL 8.0-11 .0 normal Not Available [address] [place], [address] 03/21/2023 11:35:40 03/21/19 24 03/21/2023 COMPL ETE BLOOD COUNT W/DIF F neutrophils % 58.0 Not Available [address] [place], [address] 03/21/2023 11:35:40 03/21/19 24 03/21/2023 COMPL ETE BLOOD COUNT W/DIF F lymphocytes % 32.1 Not Available [address] [place], [address] 03/21/2023 11:35:40 03/21/19 24 03/21/2023 COMPL ETE BLOOD COUNT W/DIF F monocytes % 5.6 Not Available [address] [place], [address] 03/21/2023 11:35:40 03/21/19 24 03/21/2023 COMPL ETE BLOOD COUNT W/DIF F eosinophils % 3.1 Not Available [address] [place], [address] 03/21/2023 11:35:40 03/21/19 24 03/21/2023 COMPL ETE BLOOD COUNT W/DIF F basophils % 1.0 Not Available [address] [place], [address] 03/21/2023 11:35:40 03/21/19 24 03/21/2023 COMPL ETE BLOOD COUNT W/DIF F immature grans % 0.2 Not Available [address] [place], [address] 03/21/2023 11:35:40 03/21/19 24 03/21/2023 COMPL ETE BLOOD COUNT W/DIF F nucleated RBC 0.0 % 0.0-0. 3 normal Not Available [address] [place], [address] 03/21/2023 11:35:40 03/21/19 24 03/21/2023 COMPL ETE BLOOD COUNT W/DIF F absolute neutrophil count 3.00 10_3/ uL 1.2-6. 7 normal Not Available [address] [place], [address] 03/21/2023 11:35:40 03/21/19 24 03/21/2023 COMPL ETE BLOOD COUNT W/DIF F absolute lymphocyte count 1.66 10_3/ uL 1.2-3. 4 normal Not Available [address] [place], [address] 03/21/2023 11:35:40 03/21/19 24 03/21/2023 COMPL ETE BLOOD COUNT W/DIF F absolute monocyte count 0.29 10_3/ uL 0.1-0. 8 normal Not Available [address] [place], [address] 03/21/2023 11:35:40 03/21/19 24 03/21/2023 COMPL ETE BLOOD COUNT W/DIF F absolute eosinophil count 0.16 10_3/ uL 0.0-0. 7 normal Not Available [address] [place], [address] 03/21/2023 11:35:40 03/21/19 24 03/21/2023 COMPL ETE BLOOD COUNT W/DIF F absolute basophil count 0.05 10_3/ uL 0.0-0. 2 normal Not Available [address] [place], [address] 03/21/2023 11:35:40 03/21/19 24 03/21/2023 D-DIM ER D-dimer 668 NG/ml feu <500 high Not Available [address] [place], [address] 03/21/2023 12:04:43 03/21/19 24 03/21/2023 HEMOG LOBIN A1C hemoglobin A1C 6.2 % <5.7 high Not Available [address] [place], [address] 03/21/2023 12:11:43 03/21/19 24 03/21/2023 VITAM IN D 25 TOTAL vitamin D 25 total 30.9 NG/mL 30-100 normal Not Available [address] [place], [address] 03/21/2023 12:34:45 03/21/19 24 03/21/2023 COMPR EHENS DEANDRE METAB OLIC PANEL calcium 9.3 mg/dL 8.5-10 .1 normal Not Available [address] [place], [address] 03/21/2023 12:58:51 03/21/19 24 03/21/2023 COMPR EHENS DEANDRE METAB OLIC PANEL glucose 115 mg/dL 74-106 high Not Available [address] [place], [address] 03/21/2023 12:58:51 03/21/19 24 03/21/2023 COMPR EHENS DEANDRE METAB OLIC PANEL BUN 19 mg/dL 7-18 high Not Available [address] [place], [address] 03/21/2023 12:58:51 03/21/19 24 03/21/2023 COMPR EHENS DEANDRE METAB OLIC PANEL creatinine 0.9 mg/dL 0.55-1 .02 normal Not Available [address] [place], [address] 03/21/2023 12:58:51 03/21/19 24 03/21/2023 COMPR EHENS DEANDRE METAB OLIC PANEL estimated GFR 61.87 mL/min /1.73m 2 Not Available [address] [place], [address] 03/21/2023 12:58:51 03/21/19 24 03/21/2023 COMPR EHENS DEANDRE METAB OLIC PANEL total protein 7.2 g/dL 6.4-8. 2 normal Not Available [address] [place], [address] 03/21/2023 12:58:51 03/21/19 24 03/21/2023 COMPR EHENS DEANDRE METAB OLIC PANEL albumin 3.5 g/dL 3.4-5. 0 normal Not Available [address] [place], [address] 03/21/2023 12:58:51 03/21/19 24 03/21/2023 COMPR EHENS DEANDRE METAB OLIC PANEL bilirubin, total 0.8 mg/dL 0.2-1. 0 normal Not Available [address] [place], [address] 03/21/2023 12:58:51 03/21/19 24 03/21/2023 COMPR EHENS DEANDRE METAB OLIC PANEL alk phos 48 U/L 46-116 normal Not Available [address] [place], [address] 03/21/2023 12:58:51 03/21/19 24 03/21/2023 COMPR EHENS DEANDRE METAB OLIC PANEL sodium 143 mmol/ L 136-14 5 normal Not Available [address] [place], [address] 03/21/2023 12:58:51 03/21/19 24 03/21/2023 COMPR EHENS DEANDRE METAB OLIC PANEL potassium 3.4 mmol/ L 3.5-5. 1 low Not Available [address] [place], [address] 03/21/2023 12:58:51 03/21/19 24 03/21/2023 COMPR EHENS DEANDRE METAB OLIC PANEL chloride 106 mmol/ L 98-107 normal Not Available [address] [place], [address] 03/21/2023 12:58:51 03/21/19 24 03/21/2023 COMPR EHENS DEANDRE METAB OLIC PANEL CO2 29.2 mmol/ L 21.0-3 2.0 normal Not Available [address] [place], [address] 03/21/2023 12:58:51 03/21/19 24 03/21/2023 COMPR EHENS DEANDRE METAB OLIC PANEL anion gap 7.8 mmol/ L 3-11 normal Not Available [address] [place], [address] 03/21/2023 12:58:51 03/21/19 24 03/21/2023 COMPR EHENS DEANDRE METAB OLIC PANEL AST 14 U/L 15-37 low Not Available [address] [place], [address] 03/21/2023 12:58:51 03/21/19 24 03/21/2023 COMPR EHENS DEANDRE METAB OLIC PANEL ALT 22 U/L 14-59 normal Not Available [address] [place], [address] 03/21/2023 12:58:51 03/21/19 24 03/21/2023 URIC ACID uric acid 7.4 mg/dL 2.6-6. 0 high Not Available [address] [place], [address] 03/21/2023 12:58:51 03/21/19 24 03/21/2023 LIPID 2 cholesterol 300 mg/dL <200 high Not Available [address] [place], [address] 03/21/2023 12:58:52 03/21/19 24 03/21/2023 LIPID 2 triglyceride 138 mg/dL <150 Not Available [address] [place], [address] 03/21/2023 12:58:52 03/21/19 24 03/21/2023 LIPID 2 HDL cholesterol 61 mg/dL 40-60 Not Available Leonie osullivan [address] [place], [address] 03/21/2023 12:58:52 03/21/19 24 03/21/2023 LIPID 2 calculated LDL 212 mg/dL <100 high Not Available Evgeny velazco [address] [place], [address] 03/21/2023 12:58:52 03/21/19 24 03/21/2023 AMYLA SE amylase 47 U/L 25-115 normal Not Available [address] [place], [address] 03/21/2023 12:58:52 03/21/19 24 03/21/2023 DEMETRIS TIN ferritin 92 NG/mL 8-252 normal Not Available [address] [place], [address] 03/21/2023 12:58:53 03/21/19 24 03/21/2023 TSH TSH 3.03 uIU/m L 0.36-3 .74 normal Not Available [address] [place], [address] 03/21/2023 12:58:53 03/21/19 24 03/21/2023 FREE T4 free T4 0.87 NG/dL 0.76-1 .46 normal Not Available [address] [place], [address] 03/21/2023 12:58:53 03/21/19 24 03/21/2023 VITAM IN B12 vitamin B12 435 pg/mL 193-98 6 normal Not Available [address] [place], [address] 03/21/2023 12:58:54 03/21/19 24 03/21/2023 FOLAT E folate 16.7 NG/mL 8.6-20 .0 normal Not Available [address] [place], [address] 03/21/2023 12:58:54 03/21/19 24 03/21/2023 LIPAS E lipase 35 U/L 16-77 normal Not Available [facility] [address] [place], [address] 03/21/2023 12:58:55 03/21/19 24 03/21/2023 IRON/ IBCT iron 81 ug/dL 50-170 normal Not Available [facility] [address] [place], [address] 03/21/2023 12:59:50 03/21/19 24 03/21/2023 IRON/ IBCT total iron binding capacity 285 ug/dL 250-45 0 normal Not Available [address] [place], [address] 03/21/2023 12:59:50 03/21/19 24 03/21/2023 IRON/ IBCT transferrin sat 28 % 15-50 normal Not Available [address] [place], [address] 03/21/2023 12:59:50 03/21/19 24 03/21/2023 CRP, HIGH SENSI TIVIT Y CRP, high sensitivity 1.75 mg/L see note Not Available [address] [place], [address] 03/24/2023 15:37:26 03/21/19 24 03/21/2023 CA 125 Ca 125 9 U/mL <30 Not Available [facility] [address] [place], [address] 03/24/2023 15:37:26 03/21/19 24 03/24/2023 LYME AB W RFLX TO LYME CONFI RM lyme Ab W rflx to lyme confirm Negati ve negati ve Not Available [address] [place], [address] 03/24/2023 15:37:27 03/21/19 24 03/21/2023 HOMOC YSTEI NE homocysteine 13.2 umol/ L 5.0-13 .9 Not Available [address] [place], [address] 03/24/2023 15:37:27 03/21/19 24 03/21/2023 CHANCE MARQUEZ,IN TACT parathyroid hormone,inta ct 48 pg/mL - Not Available [address] [place], [address] 03/24/2023 15:37:28 03/21/19 24 03/24/2023 ELECT ROPHO RESIS , SERUM total protein 6.8 g/dL 6.3-8. 2 Not Available [address] [place], [address] 03/24/2023 15:37:28 03/21/19 24 03/24/2023 ELECT ROPHO RESIS , SERUM albumin 60.9 % 55.8-6 6.1 Not Available [address] [place], [address] 03/24/2023 15:37:28 03/21/19 24 03/24/2023 ELECT ROPHO RESIS , SERUM alpha 1 4.2 % 2.9-4. 9 Not Available [address] [place], [address] 03/24/2023 15:37:28 03/21/19 24 03/24/2023 ELECT ROPHO RESIS , SERUM alpha 2 10.4 % 7.1-11 .8 Not Available [address] [place], [address] 03/24/2023 15:37:28 03/21/19 24 03/24/2023 ELECT ROPHO RESIS , SERUM beta 11.8 % 8.4-13 .1 Not Available [address] [place], [address] 03/24/2023 15:37:28 03/21/19 24 03/24/2023 ELECT ROPHO RESIS , SERUM gamma 12.7 % 11.1-1 8.8 Not Available [address] [place], [address] 03/24/2023 15:37:28 03/21/19 24 03/24/2023 ELECT ROPHO RESIS , SERUM comment SEE BELOW Not Available [address] [place], [address] 03/24/2023 15:37:28 03/21/19 24 03/24/2023 ELECT ROPHO RESIS , SERUM albumin g/dL 4.1 g/dL 3.6-5. 2 Not Available [address] [place], [address] 03/24/2023 15:37:28 03/21/19 24 03/24/2023 ELECT ROPHO RESIS , SERUM alpha 1 g/dL 0.30 g/dL 0.15-0 .40 Not Available [address] [place], [address] 03/24/2023 15:37:28 03/21/19 24 03/24/2023 ELECT ROPHO RESIS , SERUM alpha 2 g/dL 0.70 g/dL 0.50-1 .00 Not Available [address] [place], [address] 03/24/2023 15:37:28 03/21/19 24 03/24/2023 ELECT ROPHO RESIS , SERUM beta g/dL 0.80 g/dL 0.60-1 .20 Not Available [address] [place], [address] 03/24/2023 15:37:28 03/21/19 24 03/24/2023 ELECT ROPHO RESIS , SERUM gamma g/dL 0.90 g/dL 0.60-1 .60 Not Available [address] [place], [address] 03/24/2023 15:37:28 03/21/19 24 03/21/2023 T3,FR EE T3,free 3.9 pg/mL 2.8-5. 3 Not Available [address] [place], [address] 03/24/2023 15:37:29 03/21/19 24 03/21/2023 D-DIM ER D-dimer 668 NG/ml feu <500 high Not Available [address] [place], [address] 03/25/2023 01:41:18 03/21/19 24 03/21/2023 URIC ACID uric acid 7.4 mg/dL 2.6-6. 0 high Not Available [address] [place], [address] 03/25/2023 01:41:21 03/21/19 24 03/21/2023 LIPID 2 cholesterol 300 mg/dL <200 high Not Available [address] [place], [address] 03/25/2023 01:41:22 03/21/19 24 03/21/2023 LIPID 2 triglyceride 138 mg/dL <150 Not Available [address] [place], [address] 03/25/2023 01:41:22 03/21/19 24 03/21/2023 LIPID 2 HDL cholesterol 61 mg/dL 40-60 Not Available Leonie osullivan [address] [place], [address] 03/25/2023 01:41:22 03/21/19 24 03/21/2023 LIPID 2 calculated LDL 212 mg/dL <100 high Not Available Evgeny velazco [address] [place], [address] 03/25/2023 01:41:22 03/21/19 24 03/21/2023 DEMETRIS TIN ferritin 92 NG/mL 8-252 normal Not Available Prudencio hurt [address] [place], [address] 03/25/2023 01:41:22 03/21/19 24 03/21/2023 TSH TSH 3.03 uIU/m L 0.36-3 .74 normal Not Available [address] [place], [address] 03/25/2023 01:41:23 03/21/19 24 03/21/2023 VITAM IN B12 vitamin B12 435 pg/mL 193-98 6 normal Not Available [address] [place], [address] 03/25/2023 01:41:24 03/21/19 24 03/21/2023 FOLAT E folate 16.7 NG/mL 8.6-20 .0 normal Not Available [address] [place], [address] 03/25/2023 01:41:24 03/21/19 24 03/21/2023 LIPAS E lipase 35 U/L 16-77 normal Not Available [address] [place], [address] 03/25/2023 01:41:24 03/21/19 24 03/21/2023 IRON/ IBCT iron 81 ug/dL 50-170 normal Not Available [address] [place], [address] 03/25/2023 01:41:27 03/21/19 24 03/21/2023 IRON/ IBCT total iron binding capacity 285 ug/dL 250-45 0 normal Not Available [address] [place], [address] 03/25/2023 01:41:27 03/21/19 24 03/21/2023 IRON/ IBCT transferrin sat 28 % 15-50 normal Not Available [address] [place], [address] 03/25/2023 01:41:27 03/21/19 24 03/21/2023 HEMOG LOBIN A1C hemoglobin A1C 6.2 % <5.7 high Not Available [address] [place], [address] 03/25/2023 01:41:28 03/21/19 24 03/21/2023 CA 125 Ca 125 9 U/mL <30 Not Available [address] [place], [address] 03/25/2023 01:41:31 03/21/1903/24/2023 LYME AB W RFLX TO LYME CONFI RM lyme Ab W rflx to lyme confirm Negati ve negati ve Not Available [address] [place], [address] 03/25/2023 01:41:31 03/21/19 24 03/21/2023 HOMOC YSTEI NE homocysteine 13.2 umol/ L 5.0-13 .9 Not Available [place] [id number] [place], [address] 03/25/2023 01:41:32 10/08/19 24 10/08/2023 urina lysis , dipst ick Leukocytes Negati ve Not Available [facility] [address] [place], [address], 10/08/2023 15:13:16 10/08/19 24 10/08/2023 urina lysis , dipst ick Nitrite negati ve Not Available [address], [address], 10/08/2023 15:13:16 10/08/19 24 10/08/2023 urina lysis , dipst ick Urobilinogen .2 Not Available [address], [address], 10/08/2023 15:13:16 10/08/19 24 10/08/2023 urina lysis , dipst ick Protein Negati ve Not Available [address], [address], 10/08/2023 15:13:16 10/08/19 24 10/08/2023 urina lysis , dipst ick pH 6.0 Not Available [address], [address], 10/08/2023 15:13:16 10/08/19 24 10/08/2023 urina lysis , dipst ick Blood Non-He molyze d: Modera te Not Available [address], [address], 10/08/2023 15:13:16 08/21/10/08/2023 urina lysis , dipst ick Specific [place] 1.015 Not Available [address], [address], 10/08/2023 15:13:16 10/08/19 24 10/08/2023 urina lysis , dipst ick Ketone Modera te Not Available [address], [address], 10/08/2023 15:13:16 10/08/19 24 10/08/2023 urina lysis , dipst ick Bilirubin Negati ve Not Available [address], [address], 10/08/2023 15:13:16 10/08/19 24 10/08/2023 urina lysis , dipst ick Glucose Negati ve Not Available [address], [address], 10/08/2023 15:13:16 10/08/19 24 10/08/2023 urina lysis , dipst ick Appearance Clear Not Available [address], [address], 10/08/2023 15:13:16 10/08/19 24 10/08/2023 urina lysis , dipst ick Color Pale Yellow Not Available [address], [address], 10/08/2023 15:13:16 10/08/19 24 10/08/2023 teresa dickey am No observ ation record ed. [email or web address] [address], [address], 10/08/2023 17:26:08 10/08/19 teresa dickey am No observ ation record ed. [email or web address] Not Available 10/08/2023 16:29:35 Result Notes None recorded. Problems Name Status Onset Date Resolution Date Notes Provider Name and Address Organization Details Recorded Time Hyperlipidemi a Active 2004 [facility] 4 11:53:59 Gastroesophag eal reflux disease without esophagitis Active 2001 [facility] 4 11:46:37 Lichen planus Active 2002 [facility] [place] in [facility] 4 11:54:41 History of disorder of digestive system Active 2003 Hx of diverticuliti s -- recurrent bouts since 2003 [facility] 4 11:49:07 History of clinical finding in subject Completed 200904/07/2009 Not Available [facility] 3 05:36:29 Essential hypertension Active 2004 [facility] 4 11:46:26 Overweight Active 2013 (BMI 25-29.9) [facility] 4 11:55:29 Herpesvirus infection Active 2014 Genital herpes -- L buttock [facility] 4 11:48:00 Haque's esophagus Active 2014 last 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 Advised local massage, muscle rubs, heat, etc. 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 Not Available [facility] 3 05:36:31 Disorder of skin appendage Completed 201804/17/2018 03/22/2018 - Comments only - Kumar Schultz MD - And cellulitis, empiric coverage for possible fungal infection ineffective. Staph or other bacterial infection seems more likely therefore. Some sort of contact dermatitis is also in differential but less likely. Will treat with cephalexin. May apply [id number] ter hydrocortison e cream and/or use low-dose Benadryl as needed for itching. Cautioned regarding potential side effects of latter. Problem Code: L73.9; Problem Code Type: ICD-10; Not Available [facility] 3 05:36:31 Cellulitis Completed 201804/17/2018 Problem Code: L03.90; Problem Code Type: ICD-10; Not Available [facility] 3 05:36:31 Pericardial effusion Active 2018 small, chronic since 2018, noted again on CT 01/2021 [facility] 4 11:56:54 Atrophic vaginitis Active 2018 [facility] 4 11:10:34 General examination of patient Active 2019 An miller, [facility], [facility]. 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 4 11:51:47 History of pulmonary embolus Active 2020 and 2020, unprovoked (2nd occurred 5 days after J&J Covid vaccine), life-long [facility]ag [facility] 4 11:53[facility]43 Long-term current use of anticoagulant Active 2020 An Jacob [facility], [facility], [facility]. 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
--- OUTSIDE RECORDS SUMMARY | 2023-10-08 23:30 | XMS_ITS | Encounter Summary ---
Author Organization [facility] [place] [address] Care Team Providers Care Decorative Engraver Name Role Phone Candie Skaggs MD Primary Care Provider [phone] Encounter Details Date Type Department Care Team (Latest Contact Info) Description 01/24/2023 Travel Social History Tobacco Use Types Packs/Day [...] on filedocumented in this encounter Care Teams Decorative Engraver Relationship Specialty Start Date End Date Candie Skaggs MD [address] [place] [address] PCP - General Family Medicine 03/19/19 documented as of this encounter
--- OUTSIDE RECORDS SUMMARY | 2023-10-08 23:30 | XMS_ITS | Encounter Summary ---
Author Organization [facility] [place] [address] Care Team Providers Care Carton Forming Machine Operator Name Role Phone Candie Skaggs MD Primary Care Provider [phone] Reason for Referral * Consultation (Routine) - Authorized Specialty Diagnoses / Procedures Referred By Ko duarte Referred To Contact Dermatology Diagnoses Dysplastic nevus of skin Candie Skaggs MD [address] [place] [address] [facility] D[facility] [address] [place] [address] Referral ID Status Reason Start Date Expiration Date Visits Requested Visits Authorized [id number] Authorized Consult, Test & Treat PCP Updated and/or Approved 3 01/01/2024 6 6 Encounter Details Date Type Department Care Team (Latest Contact Info) Description 01/10/2023 Transcribe Orders eDH Incoming Referrals [phone] Candie Skaggs MD [address] [place] [address] Dysplastic nevus of skin Social History Tobacco Use Types Packs/Day Years [...] as of this encounter Plan of Treatment Scheduled Referrals Name Type Priority Associated Diagnoses Order Schedule Referral to Dermatology Outpatient Referral Routine Dysplastic nevus of skin Ordered: 01/10/2023 documented as of this encounter Visit Diagnoses Diagnosis Dysplastic nevus of skin Benign neoplasm of skin, site unspecified documented in this encounter Care Teams Carton Forming Machine Operator Relationship Specialty Start Date End Date Candie Skaggs MD [address] [place] [id number] PCP - General Family Medicine 03/19/19 documented as of this encounter
--- OUTSIDE RECORDS SUMMARY | 2023-10-08 23:30 | XMS_ITS | Encounter Summary ---
Author Organization [place] [address] Care Team Providers Care Slab Worker Name Role Phone Candie Skaggs MD Primary Care Provider [phone] Reason for Referral * Audiology Exam (Routine) - Closed Specialty Diagnoses / Procedures Referred By Contbrendan t Referred To Contact Audiology Diagnoses Hearing loss, unspecified hearing loss type, unspecified laterality Candie Skaggs MD [address] [place] [address] [facility] [address] [place] [phone] Referral ID Status Reason Start Date Expiration Date V isits Requested Visits Authorized [id number] Closed Specialty Service Requested PCP Updated and/or Approved 04/10/2022 04/10/2023 1 1 Encounter Details Date Type Department Care Team (Latest Contact Info) Description 04/10/2022 Transcribe Orders eDH Incoming Referrals [phone] Candie Skaggs MD [address] [place] [address] Hearing loss, unspecified hearing loss type, unspecified laterality Social History Tobacco Use Types Packs/Day Years [...] Scheduled Referrals Name Type Priority Associated Diagnoses Orde r Schedule Referral to Audiology Outpatient Referral Routine Hearing loss, unspecified hearing loss type, unspecified laterality Ordered: 04/10/2022 documented as of this encounter Visit Diagnoses Diagnosis Hearing loss, unspecified hearing loss type, unspecified laterality documented in this encounter Care Teams Slab Worker Relationship Specialty Start Date End Date Candie Skaggs MD [address] [place] [address] PCP - General Family Medicine 03/19/19 documented as of this encounter
--- OUTSIDE RECORDS SUMMARY | 2023-10-08 23:30 | XMS_ITS | Clinical Summary ---
Author Organization [facility] [place] [address] Care Team Providers Care Robot Operator Name Role Phone Candie Skaggs MD Primary Care Provider [phone] Allergies Active Allergy Reactions Criticality Noted Date Comments Codeine Phosphate Nausea And Vomiting Medications Medication Sig Dispensed Refills Start Date End Date Status rivaroxaban (Xarelto) 10 mg Tablet Take 10 mg by mouth daily. Active estradioL (ESTRACE) 0.01 % (0.1 mg/gram) Cream estradiol 0.01% (0.1 mg/gram) vaginal cream APPLY ONE GRAM VAGINALLY TWICE A WEEK 12/16/2019 Active hydroCHLOROthia zide (Hydrodiuril) 12.5 mg Tablet hydrochlorothiazide 12.5 mg tablet TAKE ONE TABLET BY MOUTH EVERY MORNING Active latanoprost (Xalatan) 0.005 % Drops latanoprost 0.005 % eye drops INSTILL ONE DROP INTO BOTH EYE AT BEDTIME - SHAKE BEFORE USE 10/31/2020 Active losartan (COZAAR) 100 mg Tablet losartan 100 mg tablet TAKE ONE TABLET BY MOUTH EVERY MORNING IF SYSTOLIC BLOOD PRESSURE > 120 05/22/2021 Active NIFEdipine (Procardia) 10 mg Capsule nifedipine 10 mg capsule GARCIA CAPSULE AND SWALLOW CONTENTS ONCE IF NEEDED FOR FOR BLOOD PRESSURE OVER 170 Active potassium chloride (K-Tab) 20 mEq Tablet Sustained Release as needed. 08/10/2020 Active valACYclovir (Valtrex) 1 gram Tablet as needed. Active calcium carbonate/vitam in D3 (VITAMIN D-3 ORAL) Take by mouth. Active prochlorperazin e (Compazine) 5 mg Tablet Take 1 tablet by mouth every 6 hours as needed for Nausea. 15 tablet 04/15/2022 Active Additional Information Patient not taking.Reported on 06/10/2022 hydrocortisone 2.5 % CreamIndication s:Dermatitis Apply to affected area of the nose twice daily as needed. 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 Will repeat CT at this time as d/w her and . History of SCC (squamous cell carcinoma) of skin 02/01/2014 Solar lentigo 02/01/2014 Squamous cell carcinoma 07/30/2013 Pulmonary embolism, unprovoked 06/21/2010 Pericardial effusion 06/21/2010 Hypertension GERD (gastroesophageal reflux disease) Hyperlipidemia Immunizations Name Administration Dates Next Due Hepatitis A Adult (HavRix, Vaqta) 10/14/2014 Hepatitis A, Unspecified Formulation 02/03/2006 Hepatitis B Unspecified Formulation 05/08/2009 Inactivated Polio Vaccine (IPOL) 09/08/2006,02/18,02/03/2006 Influenza (Fluzone HD) Trivalent High Dose 12/29 Pneumococcal Polysaccharide (Pneumovax 23) 07/15 TD Adult 02/03/2006 Tdap 07/15/2012 Typhoid Live, Oral 10/14/2014,02/03/2006 Typhoid, VICP 04/15/2022 Zoster (Zostavax) LIVE 05/08/2009 Social History Tobacco Use Types Packs/Day Years [...] on file Sexual Orientation Not on file Last Filed Vital Signs Vital Sign Reading Time Taken Comments Blood Pressure 163/73 04/04/2022 3:51 PM EST Pulse 72 04/04/2022 3:51 PM EST Temperature 36.2 ??C (97.2 ??F) 07/05/2021 11:00 AM E DT Respiratory Rate 18 07/05/2021 11:00 AM EDT Oxygen Saturation 99% 07/05/2021 11:00 AM EDT Inhaled Oxygen Concentration - - Weight 64.4 kg (142 lb) 06/10/2022 2:43 PM EDT Height 154.9 cm (5' 1) 06/10/2022 2:43 PM EDT Body Mass Index 26.83 06/10/2022 2:43 PM EDT Plan of Treatment Health Maintenance Due Date Last Done Comments Advance Directive 11/07/1990 Bone Density Scan 11/07/2000 Zoster vaccine (2 of 3) 07/03/2009 05/08/2009 Pneumoccocal Vaccine: 65+ (2 of 2 - PCV) 07/15/2013 07/15/2012 Tetanus vaccine 07/15/2022 07/15/2012, 02/03/2006 Covid-19 Vaccine ( - season) 2022 Influenza (Flu) vaccine (1 o f 1 - Influenza standard series) 10/19/2023 12/29/2018 Tdap adult Completed 07/15/2012 Advance Directives * Full Code (Latest Code Status on File) Date Activated Date Inactivated Comments 06/21/2010 5:15 AM 06/21/2010 6:58 PM Question Answer Comments Order Status: Initial Order Does patient have decision m aking capacity? Yes, Order is based on Patients wishes. Care Teams Robot Operator Relationship Specialty Start Date End Date Candie Skaggs MD [address] [place] [address] PCP - General Family Medicine 03/19/19
--- OUTSIDE RECORDS SUMMARY | 2023-10-08 23:30 | XMS_ITS | Encounter Summary ---
Author Organization [place] [address] Care Team Providers Care Airline Dispatcher Name Role Phone Candie Skaggs MD Primary Care Provider [phone] Reason for Visit * Reason Comments Travel Consult Encounter Details Date Type Department Care Team (Late st Contact Info) Description 04/15/2022 2:00 PM EST Office [place] [phone] Leatha aSnchez, CT SC[facility] TE[facility] [place] [address] Counseling for travel; Need for immunization against typhoid Social History Tobacco Use Types Packs/Day Years [...] on file documented as of this encounter Progress Notes * Leatha Sanchez APRN - 04/15/2022 2:00 PM EST Adult Travel Clinic Reason for Visit: Abby Ruffin is a 86 y.o. female patient who comes to travel clinic today for pre-travel evaluation, vaccination and traveler's health education. Traveler reports previous international travel experience (similar trips as this current one in past). She is accompanied by herpartner who will also be traveling with her. Trip Details: Destination countries (list from first to last): [facility] ([facility], [facility]) then [facility] ([facility], [facility]) via [place] Departure date: 04/21/22 Length of trip: 1 month Purpose of travel: vacation visiting [place] Type of environment: mountains, urban Accommodations: hotel in [facility] and [facility]; guest house in [facility] Medical History: Medical problems: Patient Active Problem List Diagnosis Code ??? Pulmonary embolism, unprovoked I26.99 ??? Pericardial effusion I31.39 ??? Hypertension I10 ??? GERD (gastroesophageal reflux disease) K21.9 ??? Hyperlipidemia E78.5 ??? Squamous cell carcinoma [id number] ??? History of SCC (squamous cell carcinoma) of skin Z85.828 ??? Solar lentigo L81.4 ??? Epigastric pain R10.13 ??? Gastroesophageal reflux disease without esophagitis K21.9 ??? PMR (polymyalgia rheumatica) M35.3 Current Outpatient Medications Medication Sig Dispense Refill ??? calcium carbonate/vitamin D3 (VITAMIN D-3 ORAL) Take by mouth. ??? estradioL (ESTRACE) 0.01 % (0.1 mg/gram) Cream estradiol 0.01% (0.1 mg/gram) vaginal cream APPLY ONE GRAM VAGINALLY TWICE A WEEK ??? hydroCHLOROthiazide (Hydrodiuril) 12.5 mg Tablet hydrochlorothiazide 12.5 mg tablet TAKE ONE TABLET BY MOUTH EVERY MORNING ??? latanoprost (Xalatan) 0.005 % Drops latanoprost 0.005 % eye drops INSTILL ONE DROP INTO BOTH EYE AT BEDTIME - SHAKE BEFORE USE ??? losartan (COZAAR) 100 mg Tablet losartan 100 mg tablet TAKE ONE TABLET BY MOUTH EVERY MORNING IF SYSTOLIC BLOOD PRESSURE > 120 ??? rivaroxaban (Xarelto) 10 mg Tablet Take 10 mg by mouth daily. ??? azithromycin (ZITHROMAX) 500 mg Tablet Take 1 tablet by mouth daily for 3 days. For traveler's diarrhea with fever. 3 tablet 0 ??? prochlorperazine (Compazine) 5 mg Tablet Take 1 tablet by mouth every 6 hours as needed for Nausea. 15 tablet 0 ??? NIFEdipine (Procardia) 10 mg Capsule nifedipine 10 mg capsule GARCIA CAPSULE AND SWALLOW CONTENTS ONCE IF NEEDED FOR FOR BLOOD PRESSURE OVER 170 ??? potassium chloride (K-Tab) 20 mEq Tablet Sustained Release as needed. ??? valACYclovir (Valtrex) 1 gram Tablet as needed. No current facility-administered medications for this visit. Immunosuppression: none - treated with high dose steroids for PMR 9-10 months ago History of adverse vaccine reactions: denies History of latex, egg or beesting allergy: denies or : n/a Patient advised to carry all medications in carry on luggage. Travel Health and Safety Issues: A discussion of travel health hazards and safety issues was done, including the following topics: traffic-accidents (alcohol, seatbelts), crime, alcohol related issues, sun exposure/heat illness, Schistosomiasis and other fresh water exposures, rabies, HIV infections, Hepatitis and other STD's, control, TB, Health Insurance coverage/[employer]. Discussed food and water precautions and patient handout provided. The following strategies were recommended for the management of traveler's diarrhea according to severity: ?? For treatment of mild diarrhea: hydration and over the counter antidiarrheal recommended. ?? For treatment of diarrhea accompanied by fever or systemic illness: hydration and empiric treatment with antibiotic recommended. A prescription for Azithromycin 500 mg daily x 3 days sent to pharmacy. Discussed antibiotic use, resistance and colonization issues. Advised to use antibiotics only for more severe symptoms, fever or worsening diarrhea. ?? For severe or bloody diarrhea, or diarrhea accompanied by vomiting: patient advised to seek medical treatment. Vector-borne Disease Prevention Discussed insect bite prevention to reduce risk of malaria, dengue, chikungunya and other insect borne illnesses. Handout given. Malaria Risk: Malaria risk in country (ies) visited, but not high enough risk on this itinerary to warrant chemoprophylaxis. Altitude: Highest altitude anticipated will be 7,700 feet. and Discussed altitude sickness and prevention. Handout given. Immunizations Immunization History Administered Date(s) Administered ??? Hepatitis A Vaccine, Adult 10/14/2014 ??? Hepatitis A Vaccine, unspecified formulation 02/03/2006 ??? Hepatitis B Vaccine, unspecified formulation 05/08/2009 ??? Inactivated Polio Vaccine 02/03/2006, 03/10/2006, 09/08/2006 ??? Pneumococcal Polyvalent 23 07/15/2012 ??? Td, adult 02/03/2006 ??? Tdap Vaccine 07/15/2012 ??? Typhoid Live, Oral 02/03/2006, 10/14/2014 ??? Zoster Vaccine, Live 05/08/2009 Immunizations given today- typhoid IM Traveler is up to date with routine vaccinations including: Hepatitis A x 2, Hepatitis B 2009, PPSV23 2012, Tdap 06/2012, Zostavax 2009, measles, first Shingrix vaccine 2022, PCV20 2022, Up-to-date with COVID vaccines, influenza 2021 Rabies- discussed animal avoidance, wound care and need for post-exposure prophylaxis. Traveler given an official International Certificate of Vaccine or Prophylaxis (ICVP) for vaccine(s) received, and advised to carry original card with travel. Follow-up Recommendations: Advised traveler to contact [facility] if travel plans change or other concerns arise. Patient advised to call travel clinic if they return from trip with any illness. Time spent in travel counselin minutes. Vaccine information sheets given. documented in this encounter Plan of Treatment Not on file documented as of this encounter Visit Diagnoses Diagnosis Counseling for travel Other specified counseling Need for immunization against typhoid Need for other specified prophylactic vaccination against single bacterial disease documented in this encounter Care Teams Airline Dispatcher Relationship Specialty Start Date End Date Candie Skaggs MD [address] [place] [address] PCP - General Family Medicine 03/19/19 documented as of this encounter
--- OUTSIDE RECORDS SUMMARY | 2023-10-08 23:30 | XMS_ITS | Encounter Summary ---
Author Organization [place] [address] Care Team Providers Care Office Support Name Role Phone Candie Skaggs MD Primary Care Provider Encounter Details Date Type Department Care Team (Latest Contact Info) Description 04/15/2022 Travel Social History Tobacco Use Types Packs/Day [...] on filedocumented in this encounter Care Teams Office Support Relationship Specialty Start Date End Date Candie Skaggs MD [address] [place] [address] PCP - General Family Medicine 03/19/19 documented as of this encounter
--- OUTSIDE RECORDS SUMMARY | 2023-10-08 23:31 | XMS_ITS | Encounter Summary ---
Author Organization [facility] [place] [address] Care Team Providers Care Printed Circuit Boards Laminator Name Role Phone Estee Novak APRN Primary Care Provider [phone] Encounter Details Date Type Department Care Team (Latest Contact Info) Description 07/02/2010 1:45 PM EDT - 07/02/2010 11:59 PM EDT Hospital [place] [address] Unknown None Discharge Disposition: Home Social History Tobacco Use Types Packs/Day Years Used Date Smoking Tobacco: Former Cigarettes 0.5 3 Smokeless Tobacco: Former Quit: 06/21/1989 Alcohol Use Standard Drinks/Week Comments Yes 2 (1 standard drink = 0.6 oz pur e alcohol) Sex and Gender Information Value Date Recorded Sex Assigned at Not on file Gender Identity Not on file Sexual Orientation Not on file documented as of this encounter Medications at Time of Discharge Medication Sig Dispensed Refills Start Date End Date omeprazole (PRILOSEC) 20 mg capsule Take 20 mg by mouth daily. 07/05/2021 ibuprofen (ADVIL;MOTRIN) 400 mg tablet Take 400 mg by mouth every 6 hours as needed. 07/05/2021 irbesartan-hydrochl orothiazide (AVALIDE) 150-12.5 mg Tablet Take 1 tablet by mouth daily. 07/05/2021 warfarin (COUMADIN) 1 mg tablet Take by mouth daily. Follow dosing instructions given to you by your PCP's office. 20 tablet 0 06/21/2010 03/18/2011 enoxaparin (LOVENOX) 80 mg/0.8 mL injection Inject 0.7 mLs subcutaneously 2 times daily. 10 Syringe 1 06/21/2010 01/14/2011 enoxaparin (LOVENOX) 80 mg/0.8 mL injection Inject 0.7 mLs subcutaneously daily. 10 Syringe 1 06/21/2010 03/18/2011 atorvastatin (LIPITOR) 10 mg tablet 02/03/2007 04/05/2011 documented as of this encounter Plan of Treatment Not on file documented as of this encounter Procedures Procedure Name Priority Date/Time Associated Diagnosis Comments PROTHROMBIN TIME Routine 07/02/2010 1:55 PM EDT documented in this encounter Results * (ABNORMAL) PROTHROMBIN TIME (07/02/2010 1:55 PM EDT) Prothrombin Time 19.2(H) 12.3 - 14.7 sec MAO MARTÍNEZ Comment: [facility] Transfusion Committee Guidelines: INR less than 2.0, PTT less than OR equal to 43.5 seconds, or Fibrinogen greater than or equal to 100 mg/dl indicate adequate procoagulant activity for hemostasis in patients without underlying bleeding disorders. International Normalization Ratio 1.6(H) 0.9 - 1.1 MAO MARTÍNEZ Blood specimen (specimen) 07/02/2010 1:55 PM EDT 07/02/2010 2:05 PM EDT Estee Novak APRN HEMATOLOGY ORDERABLE S MAO MARTÍNEZ documented in this encounter Visit Diagnoses Not on filedocumented in this encounter Care Teams Printed Circuit Boards Laminator Relationship Specialty Start Date End Date Estee Novak APRN PCP - General 01/09/10 10/12/14 documented as of this encounter
--- OUTSIDE RECORDS SUMMARY | 2023-10-08 23:31 | XMS_ITS | Encounter Summary ---
Author Organization [facility] [place] [address] Care Team Providers Care Rehabilitation Inspector Name Role Phone Candie Skaggs MD Primary Care Provider [phone] Encounter Details Date Type Department Care Team (Latest Contact Info) Description 04/04/2022 Travel Social History Tobacco Use Types Packs/Day [...] on filedocumented in this encounter Care Teams Rehabilitation Inspector Relationship Specialty Start Date End Date Candie Skaggs MD [address] [place] [address] PCP - General Family Medicine 03/19/19 documented as of this encounter
--- OUTSIDE RECORDS SUMMARY | 2023-10-08 23:31 | XMS_ITS | Encounter Summary ---
Author Organization [facility] [place] [address] Care Team Providers Care Buggy Ladle Tender Name Role Phone Estee Novak APRN Primary Care Provider Encounter Details Date Type Department Care Team (Latest Contact Info) Description 01/14/2011 3:40 PM EST - 01/14/2011 11:59 PM EST Hospital Encounter Non-[place] [phone] Alexandra Hong RN Palpitations Discharge Disposition: Home Social History Tobacco Use [...] Procedure Name Priority Date/Time Associated Diagnosis Comments ZIOPATCH Routine 01/14/2011 4:33 PM EST Palpitations documented in this encounter Results * ZIOPATCH (01/14/2011 4:33 PM EST) Anatomical Region Laterality Modality Other Narrative 02/05/2011 12:14 PM EST ?? During the 13.5 day ??monitored period, the predominant rhythm was sinus. The average heart rate was 70 beats per minute . ??The lowest heart rate was 49 bpm at 02:49, and the highest heart rate was 122 bpm at 12:47. ?? Rare atrial ectopy was noted. ??There were 334 atrial premature beats (less than 0.1%). There were 8 atrial premature beats couplets . There were no supraventricular tachyarrhythmias. ?? Rare ventricular ectopy was noted. ??There was one ventricular premature beats, and 3 VPC couplets. There were no ventricular tachyarrhythmias ?? No pauses were noted.. ?? No symptoms were reported and no trigger events were marked. Procedure Note Irlanda Mao MD - 02/05/2011 ?? During the 13.5 day monitored period, the predominant rhythm was sinus.The average heart rate was 70 beats per minute . The lowest heart ratewas 49 bpm at 02:49, and the highest heart rate was 122 bpm at 12:47. ?? Rare atrial ectopy was noted. There were 334 atrial premature beats(less than 0.1%). There were 8 atrial premature beats couplets . Therewere no supraventricular tachyarrhythmias. ?? Rare ventricular ectopy was noted. There was one ventricular prematurebeats, and 3 VPC couplets. There were no ventricular tachyarrhythmias ?? No pauses were noted.. ?? No symptoms were reported and no trigger events were marked. George Jalloh MD CARDIAC SERVICES ORD ERABLES documented in this encounter Visit Diagnoses Diagnosis Palpitations documented in this encounter Care Teams Buggy Ladle Tender Relationship Specialty Start Date End Date Estee Novak APRN PCP - General 01/09/10 10/12/14 documented as of this encounter
--- OUTSIDE RECORDS SUMMARY | 2023-10-08 23:31 | XMS_ITS | Encounter Summary ---
Author Organization [facility] [place] [address] Care Team Providers Care Charge Accounts Audit Clerk Name Role Phone [place], Estee Andino APRN Primary Care Provider [phone] Reason for Visit * Reason Onset Date Comments Results 02/26/2011 Encounter Details Date Type Department Care Team (Late st Contact Info) Description 02/26/2011 Telephone Cardiology at [address] [phone] George Jalloh MD [facility] [place] [address] Results Social History Tobacco Use Types Packs/Day Years [...] on file documented as of this encounter Miscellaneous Notes * Telephone Encounter - Jose Mayravi Maciel - 02/26/2011 9:45 AM EST Patient called quite concerned as to why she did not get any results on her Zio Patch that was put on 01/14. She would like to be contacted with the results. documented in this encounter Plan of Treatment Not on file documented as of this encounter Visit Diagnoses Not on filedocumented in this encounter Care Teams Charge Accounts Audit Clerk Relationship Specialty Start Date End Date Estee Novak APRN PCP - General 01/09/10 10/12/14 documented as of this encounter
--- OUTSIDE RECORDS SUMMARY | 2023-10-08 23:31 | XMS_ITS | Encounter Summary ---
Author Organization [facility] [place] [address] Care Team Providers Care Bench Worker Apprentice Name Role Phone Estee Novak APRN Primary Care Provider [phone] Reason for Visit * Reason Onset Date Comments Advice Only 03/12/2011 regarding labs f or upcoming yosef't in April Encounter Details Date Type Department Care Team (Late st Contact Info) Description 03/12/2011 Telephone Hematology [place] [phone] Amarilis Jacobs, electric power superintendent Only (regarding labs for upcoming yosef't in April) Social History Tobacco Use Types Packs/Day Years [...] encounter Miscellaneous Notes * Telephone Encounter - Amarilis Yadav RN - 03/12/2011 1:13 PM EST T/c to patient residence. Message left to return call to discuss timing of lab work. Mr. 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 PCP recently recommended patient stop coumadin. Mr. Ruffin asking if They should have labs obtained now vs at the time of the appointment with Dr. Fields in April. From: Roxy Mondragon Sent: Saturday, March 12, 2011 11:38 AM To: Amarilis Yadav Subject: phone message Geovanni Ruffin called in regards to his Abby Maciel#[id number]. He had some questions about maybe having labs before her appointment in April. She had a clot in the spring and was put on Coumadin, but now her PCP has taken her off this, she is doing fine but now thinking that maybe she shouldhave prior lab work done. h- [phone] Roxy Mondragon Clinical Pelt Grader Hematology/Oncology [facility] documented in this encounter Plan of Treatment Not on file documented as of this encounter Visit Diagnoses Not on filedocumented in this encounter Care Teams Bench Worker Apprentice Relationship Specialty Start Date End Date Estee Novak APRN PCP - General 01/09/10 10/12/14 documented as of this encounter
--- OUTSIDE RECORDS SUMMARY | 2023-10-08 23:31 | XMS_ITS | Encounter Summary ---
Author Organization [facility] [place] [address] Care Team Providers Care Pattern Maker Programer Name Role Phone Estee Novak APRN Primary Care Provider [phone] Encounter Details Date Type Department Care Team (Late st Contact Info) Description 01/14/2011 Abstract Cardiology at [address] [phone] Sarah Morales LPN Social History Tobacco Use Types Packs/Day Years [...] on filedocumented in this encounter Care Teams Pattern Maker Programer Relationship Specialty Start Date End Date Estee Novak APRN PCP - General 01/09/10 10/12/14 documented as of this encounter
--- OUTSIDE RECORDS SUMMARY | 2023-10-08 23:31 | XMS_ITS | Encounter Summary ---
Author Organization [facility] [place] [address] Care Team Providers Care Pony Cylinder Press Operator Name Role Phone Candie Skaggs MD Primary Care Provider [phone] Encounter Details Date Type Department Care Team (Late st Contact Info) Description 12/18/2020 Ancillary Procedure [place] [id number] Candie Skaggs MD [address] [place] [id number] Social History Tobacco Use Types Packs/Day Years [...] Procedure Name Priority Date/Time Associated Diagnosis Comments FILM LIBRARY STORAGE ONLY DX HIP Routine 12/18/2020 12:00 AM EDT documented in this encounter Results * Film Library- Storage Only DX Hip (12/18/2020 12:00 AM EDT) Narrative [facility] - 03/08/2022 1:57 PM EST This exam is auto-finalizing. It's purpose is for storage only. Candie Skaggs MD IMG FILM LIBRARY ORD ERABLES [place], [place] documented in this encounter Visit Diagnoses Not on filedocumented in this encounter Care Teams Pony Cylinder Press Operator Relationship Specialty Start Date End Date Candie Skaggs MD [address] [place] [address] PCP - General Family Medicine 03/19/19 documented as of this encounter
--- OUTSIDE RECORDS SUMMARY | 2023-10-08 23:31 | XMS_ITS | Data Portability ---
Author Organization [place] - .[facility], [employer] [place] Address [address] [place] [address] Care Team Providers Care Warehouse Packer Name Role Phone KUMAR SCHULTZ Primary Care Provider Assessment No assessment recorded. Plan of Treatment Reminders Order Date Submit Date Provider Last Modified By Organization Details Last Modified Time Details Appointments None recorded. Lab None recorded. Referral None recorded. Procedures None recorded. Surgeries None recorded. Imaging None recorded. Medication Orders famotidine 40 mg tablet 2021 022 [facility] [address] [place], [address], 15:06:03 Patient TargetsNo targets recorded. Patient InstructionsNo instructions recorded. Reason for Referral None Reported. Results Created Date Observation Date Name Description Value Unit Range Abnormal Flag LastModifiedBy Organization Detail LastModifiedTime 06/20/19 22 06/15/2021 MRI, abdom en, w/wo contr ast No observ ation record ed. [email or web address] [facility] (Radiology) [address] [place], [address], 06/27/2021 14:27:56 Result Notes None recorded. Problems Name Status Onset Date Resolution Date Notes Provider Name and Address Organization Details Recorded Time Gastroesophageal reflux disease without esophagitis Active 022 Geovanni Kramer MD [address] [place] [address],[address], [place], [address] , [facility] - .[facility] 05/30/2021 15:09:11 Problem Notes None recorded. Procedures Surgical History Date Name Laterality Status Provider Name and Address Organization Details Recorded Time Appendectomy completed Geovanni butt MD [address] [facility],[address] [facility], [place], [address], [place] - .[facility] 05/30/2021 14:59:40 Imaging Results Imaging Date Name Status LastModified by Organiz ation Details LastModified Time 06/15/2021 MRI, abdomen, w/wo contrast completed [email or web address] [facility] (Radiology) [address], [place], [address], 06/27/2021 14:27:56 Procedure Notes None recorded. Medical Equipment None Reported. Allergies Allergen ID Allergen Name Allergen Category Reaction Reaction Severity Criticality Documentation Date Start Date Code Code System Note Provider Name and Address Organization Details Recorded Time [id number] codeine medicatio n Not available Not available Not available 05/30/2021 2670 RxNorm Geovanni Kramer MD [address] [facility], [address] [facility], [place], [address], [place] - .[facility] 15:00:03 Medications Name Sig Start Date Stop Date Status Note LastModified by Organization Details LastModified Time amoxicillin 500 mg capsule TAKE ONE CAPSULE BY MOUTH EVERY 8 HOURS UNTIL GONE active Not Available Not Available No t Available latanoprost 0.005 % eye drops INSTILL ONE DROP INTO BOTH EYE AT BEDTIME - SHAKE BEFORE USE active Not Available Not Available No t Available valacyclovi r 1 gram tablet TAKE ONE TABLET BY MOUTH TWICE A DAY active Not Available Not Available No t Available famotidine 40 mg tablet Take 1 tablet twice a day by oral route. 2021 active Not Available Not Available Not Avai lable prednisone 5 mg tablet TAKE 1 TABLET BY MOUTH DIRECTED. CURRENTLY TAKING 8MG FOR 1 MONTH THEN 7MG FOR 1 MONTH THEN 6MG FOR 1 MONTH ETC. active Not Available Not Available No t Available valacyclovi r 500 mg tablet TAKE TWO TABLETS BY MOUTH TWICE A DAY FOR 5 DAYS 05/30 completed Not Available Not Available Not Available prednisone 1 mg tablet TAKE 8 TABLETS BY MOUTH DAILY FOR ONE MONTH , THEN TAKE 7 TABLETS FOR ONE MONTH, THEN 6 TABLETS FOR ONE MONTH ETC. CONTINUED TAPER active Not Available Not Available No t Available nifedipine 10 mg capsule GARCIA CAPSULE AND SWALLOW CONTENTS ONCE IF NEEDED FOR FOR BLOOD PRESSURE OVER 170 active Not Available Not Available No t Available warfarin 2 mg tablet TAKE ONE TABLET BY MOUTH EVERY DAY TAKE TOGETHER WITH 5MG TABLETS 05/30 completed Not Available Not Available Not Available warfarin 5 mg tablet TAKE ONE TABLET BY MOUTH EVERY DAY TAKE TOGETHER WITH 2MG 05/30 completed Not Available Not Available Not Available omeprazole 20 mg capsule,del ayed release TAKE ONE CAPSULE BY MOUTH EVERY DAY active Not Available Not Available No t Available zolpidem 5 mg tablet TAKE ONE TABLET BY MOUTH AT BEDTIME NEEDED active Not Available Not Available No t Available metoprolol succinate ER 25 mg tablet,exte nded release 24 hr TAKE ONE TABLET BY MOUTH AT BEDTIME active Not Available Not Available No t Available estradiol 0.01% (0.1 mg/gram) vaginal cream APPLY ONE GRAM VAGINALLY TWICE A WEEK active Not Available Not Available No t Available losartan 100 mg tablet TAKE ONE TABLET BY MOUTH EVERY MORNING IF SYSTOLIC BLOOD PRESSURE > 120 active Not Available Not Available No t Available amoxicillin 875 mg-potassiu m clavulanate 125 mg tablet TAKE ONE TABLET BY MOUTH TWICE A DAY active Not Available Not Available No t Available enoxaparin 80 mg/0.8 mL subcutaneou s syringe INJECT 0.7ML SUBCUTANE OUSLY EVERY 12 HOURS FOR 5 DAYS active Not Available Not Available No t Available losartan 100 mg-hydrochl orothiazide 12.5 mg tablet TAKE ONE TABLET BY MOUTH EVERY DAY active Not Available Not Available No t Available hydrochloro thiazide 12.5 mg tablet TAKE ONE TABLET BY MOUTH EVERY MORNING active Not Available Not Available No t Available Xarelto 20 mg tablet TAKE ONE TABLET BY MOUTH EVERY DAY active Not Available Not Available No t Available potassium chloride ER 20 mEq tablet,exte nded release TAKE 1/2 TABLET BY MOUTH ONCE A DAY active Not Available Not Available No t Available Vitals None Recorded Social History Question Answer Notes LastModified by Organizat ion Details LastModified Time Do You Or Have You Ever Used E-cigarettes Or Vape? Never Used Electronic Cigarettes Information not available 05/30/2021 When Did You Quit Smoking? 16+yearssincel scooter Information not available 05/30/2021 RISK LEVEL - Segmentation Level 2 - Chronic Dx/primary Care Treatable [id number] Information not available 06/24/2021 Do You Or Have You Ever Used Smokeless Tobacco? [id number] Information not available 05/30/2021 Do You Or Have You Ever Used Any Other Forms Of Tobacco Or Nicotine? No Information not available 05/30/2021 Sex: Unknown Functional Status None recorded. Mental Status None recorded. Family History Nothing Reported. Medical History Condition Response Other Gynecological HistoryNo gynecological history recorded. Obstetrics History GPAL:G 0 P 0 0 0 0 Past Encounters Encounter ID Performer Location Encounter Start Date Encounter Closed Date Diagnosis/Indication Diagnosis SNOMED-CT Code [id number] Geovanni [address] [address] [place] [address] 05/30/2021 08:06:32 05/30/2021 16:13:14 Gastroesophageal reflux disease without esophagitis [id number] Geovanni QuiñonezYoemily_[address] [address] [place] [address] 06/27/2021 13:08:09 06/27/2021 13:55:18 Gastroesophageal reflux disease without esophagitis [id number] Health Concerns Section Related Observation LastModified by Organization Detai ls LastModified Time None Recorded Concern Status LastModified by Organization Details LastModified Time None Recorded Advance Directives Directive None Recorded Payers Encounter Date Sequence Insurance Name Policy Number Policy Baez Covered Member ID Baez Member ID Guarantor Name 05/30/2021 1 MEDICARE B-[place]: [facility] [employer] Abby F Loranger [id number] Abby Loranger 06/27/2021 1 MEDICARE B-MO: [facility] Abby F Laly [id number] Abby Laly Notes Date Note Type Note Provider Name and Address Organization Details Recorded Time 05/30/2021 text/html HPI Notes: 06/05: 82 y/o woman: -momentary dysphagia 12 days ago, had momentary food impaction for 2-3 seconds and regurgitated the food, never had this before, otherwise no dysphagia -has chronic belching, acidic sensation in throat for years, stable, controlled on Prilosec 20 mg daily; if stops this, has recurrent symptoms -CTAP 03/07 in setting of acute-onset n/v/d, ER visit led to CT that showed jejunitis, diverticulitis, but not treated for diverticulitis, per pt, as she did not have abdominal pain -feels well today, no complaints, no BRBPR or melena -last month had rash across torso and back thought to be due to cellulitis, resolved with abx -normal colonoscopy 10 years ago, normal EGD about 5 years ago 01/29/19: No dysphagia. Esophagram showed a small hiatal hernia. VC showed no polyps but not adequate prep. Cologuard negative. No changes in BMs. Only GI symptoms is nighttime awakenig from heartburn once a month, resolved with sitting up but can linger for a day or two. 05/30/21: Had a PE one year ago. Now on Xarelto 10 mg. Has intense belching for years, used to just be at night now in the daytime. Not taking antacids. Denies BRBPR or melena. 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 Geovanni Kramer MD [address] [place] [address],[address] [facility], [place], [address] [place] [address] - .[facility] 05/30/2021 15:12:18 06/27/2021 text/html HPI Notes: 06/05: 82 y/o woman: -momentary dysphagia 12 days ago, had momentary food impaction for 2-3 seconds and regurgitated the food, never had this before, otherwise no dysphagia -has chronic belching, acidic sensation in throat for years, stable, controlled on Prilosec 20 mg daily; if stops this, has recurrent symptoms -CTA 03/07 in setting of acute-onset n/v/d, ER visit led to CT that showed jejunitis, diverticulitis, but not treated for diverticulitis, per pt, as she did not have abdominal pain -feels well today, no complaints, no BRBPR or melena -last month had rash across torso and back thought to be due to cellulitis, resolved with abx -normal colonoscopy 10 years ago, normal EGD about 5 years ago 01/29/19: No dysphagia. Esophagram showed a small hiatal hernia. VC showed no polyps but not adequate prep. Cologuard negative. No changes in BMs. Only GI symptoms is nighttime awakening from heartburn once a month, resolved with sitting up but can linger for a day or two. 05/30/21: Had a PE one year ago. Now on Xarelto 10 mg. Has intense belching for years, used to just be at night now in the daytime. Not taking antacids. Denies BRBPR or melena. 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 Had a normal upper GI series 06/15/21. CTAP negative 2 months ago per pt at [place]. Geovanni Kramer MD [address] [place] [address],[address] [place] [address], [place], [address], [facility] - .[facility] 06/27/2021 13:54:02 OBGyn Episode No OBEpisode recorded.
--- OUTSIDE RECORDS SUMMARY | 2023-10-08 23:31 | XMS_ITS | Encounter Summary ---
Author Organization [facility] [place] [address] Care Team Providers Care Cracking Unit Operator Name Role Phone Candie Skaggs MD Primary Care Provider [phone] Encounter Details Date Type Department Care Team (Late st Contact Info) Description 03/19/2019 2:30 PM EST Office [place] [phone] Charisma Zhang, RN [facility] [place] [address] Other specified counseling Social History Tobacco Use Types Packs/Day Years [...] as of this encounter Progress Notes * Charisma Zhang RN - 03/19/2019 2:30 PM EST Adult Travel Clinic Reason for Visit: Abby Ruffin is a 83 y.o. y.o. patient who comes to travel clinic today for pre-travel evaluation, vaccination and traveler's health education. She is here with her . They have travelled to this area several times in the past. Trip Details: Destination countries (list from first to last): [facility] Departure date: Apr 13 Length of trip: 3 weeks Purpose of travel: spriitiual [place] of environment[place] Accommodations: Guest house Medical History: Medical problems: Patient Active Problem List Diagnosis Code ??? Pulmonary embolism, unprovoked I26.99 ??? Pericardial effusion I31.3 ??? Hypertension I10 ??? GERD (gastroesophageal reflux disease) K21.9 ??? Hyperlipidemia E78.5 ??? Squamous cell carcinoma [id number] ??? History of SCC (squamous cell carcinoma) of skin Z85.828 ??? Solar lentigo L81.4 Current Outpatient Medications Medication Sig Dispense Refill ??? LOSARTAN-HYDROCHLOROTHIAZIDE ORAL Take by mouth. ??? LORazepam (ATIVAN) 0.5 mg Tablet Take 0.5 mg by mouth every 6 hours as needed for Anxiety. ??? ibuprofen (ADVIL;MOTRIN) 400 mg tablet Take 400 mg by mouth every 6 hours as needed. ??? azithromycin (ZITHROMAX) 500 mg Tablet Take 1 tablet by mouth once for 1 dose. For diarrhea accompanied by fever. May repeat the next day if symptoms persist. 2 tablet 0 ??? aspirin 81 mg Tablet, Delayed Release (E.C.) Take 81 mg by mouth daily. ??? cyanocobalamin 500 mcg Tablet Take 500 mcg by mouth daily. ??? valACYclovir (VALTREX) 500 mg tablet Take 1 tablet by mouth 2 times daily. One tab twice daily for three days of each outbreak (Patient not taking: Reported on 03/19/2019) 6 tablet 4 ??? omeprazole (PRILOSEC) 20 mg capsule Take 20 mg by mouth daily. ??? irbesartan-hydrochlorothiazide (AVALIDE) 150-12.5 mg per tablet Take 1 tablet by mouth daily. No current facility-administered medications for this visit. Immunosuppression: none History of adverse vaccine reactions: none History of latex, egg or beesting allergy: none or : no Patient advised to carry all medications in carry on luggage. Travel Health and Safety Issues: A discussion of travel health hazards and safety issues was done, including the following topics: traffic-accidents (alcohol, seatbelts), crime, alcohol related issues, sun exposure/heat illness, Schistosomiasis and other fresh water exposures, rabies, TB, DVT prevention, embassy info, Health Insurance coverage/[employer]. Discussed food and water precautions and patient handout provided. The following strategies were recommended for the management of traveler's diarrhea according to severity: ?? For treatment of mild diarrhea: hydration and over the counter antidiarrheal recommended. ?? For treatment of diarrhea accompanied by fever or systemic illness: hydration and empiric treatment with antibiotic recommended. Discussed pros/cons of self treatment with one 500 mg dose of azithromycin (cons including rare side effects, drug drug interactions and disruption of normal gastric vicky). A prescription for azithromycin faxed to pharmacy. Advised to reserve its use to bad diarrheaaccompanied by fever/illness and no ready access to medical care. ?? For severe or bloody diarrhea, or diarrhea accompanied by vomiting: patient advised to seek medical treatment. Vector-borne Disease Prevention Discussed insect bite prevention to reduce risk of malaria, dengue and other insect borne illnesses. Handout given. Malaria Risk: No malaria risk on this particular trip. Altitude: Highest altitude anticipated will be 7-8000 ft. Has tolerated this altitude well in the past.. Immunizations Immunization History Administered Date(s) Administered ??? Hepatitis A Vaccine, Adult 10/14/2014 ??? Hepatitis A Vaccine, unspecified formulation 02/03/2006 ??? Hepatitis B Vaccine, unspecified formulation 05/08/2009 ??? Inactivated Polio Vaccine 02/03/2006, 03/10/2006, 09/08/2006 ??? Pneumococcal Polyvalent 23 07/15/2012 ??? Td, adult 02/03/2006 ??? Tdap Vaccine 07/15/2012 ??? Typhoid Live, Oral 02/03/2006, 10/14/2014 ??? Zoster Vaccine, Live 05/08/2009 did get flu shot in fall Today None needed Rabies - discussed animal avoidance, wound care and need for post-exposure prophylaxis. Discussed getting revaccinated with new shingles vaccine./ Vaccine information sheets given. Vaccines documented in International Certificate of Immunizations and given to patient. Follow-up Recommendations: none Patient advised to call travel clinic if they return from trip with any illness. Time spent in travel counselin min with . documented in this encounter Plan of Treatment Not on file documented as of this encounter Visit Diagnoses Diagnosis Other specified counseling documented in this encounter Care Teams Cracking Unit Operator Relationship Specialty Start Date End Date Candie Skaggs MD [address] [place] [address] PCP - General Family Medicine 03/19/19 documented as of this encounter
--- OUTSIDE RECORDS SUMMARY | 2023-10-08 23:31 | XMS_ITS | Encounter Summary ---
[place] [address] Care Team Providers Care Smoke Eater Name Role Phone Stefan Arteaga MD Primary Care Provider [phone] Encounter Details Date Type Department Care Team (Late st Contact Info) Description 05/02/2017 External [place] [address] Social History Tobacco Use Types Packs/Day Years [...] Procedure Name Priority Date/Time Associated Diagnosis Comments ECG SCAN Routine 05/02/2017 documented in this encounter Results * Scan Doc: ECG (05/02/2017) Historical Provider MD ISABEL MGR SCAN EX T ORDR/RSLT documented in this encounter Visit Diagnoses Not on filedocumented in this encounter Care Teams Smoke Eater Relationship Specialty Start Date End Date Stefan Arteaga MD PCP - General 10/13/14 03/18/19 documented as of this encounter
--- OUTSIDE RECORDS SUMMARY | 2023-10-08 23:31 | XMS_ITS | Encounter Summary ---
[place] [address] Care Team Providers Care Biochemistry Technologist Name Role Phone [place], Estee Andino APRN Primary Care Provider [phone] Encounter Details Date Type Department Care Team (Latest Contact Info) Description 06/21/2010 3:33 AM EDT - 06/21/2010 4:56 PM EDT Hospital Encounter Hematology [place] [id number] [place] [address] [place] [address] Pulmonary embolism; Other pulmonary embolism and infarction Discharge Disposition: Home Social History Tobacco Use [...] Sign Reading Time Taken Comments Blood Pressure 132/72 06/21/2010 9:45 AM EDT Pulse 77 06/21/2010 9:45 AM EDT Temperature 36.7 ??C (98.1 ??F) 06/21/2010 9 :45 AM EDT Respiratory Rate 16 06/21/2010 9:45 AM EDT Oxygen Saturation 95% 06/21/2010 9:4 5 AM EDT Taken after walking in room. Inhaled Oxygen Concentration - - Weight 67.9 kg (149 lb 11.1 oz) 06/21/2010 4:00 AM EDT Height 158.8 cm (5' 2.52) 06/21/2010 4 :00 AM EDT Body Mass Index 26.93 06/21/2010 4:00 AM EDT documented in this encounter Discharge Instructions * Patient Instructions* Goyo Lawson MD - 06/21/2010 1:56 PM EDT Instruction after leaving the hospital Why you were hospitalized: pulmonary embolism Call your doctor or seek medical attention if you develop the following: shortness of breath, severe chest pain, lightheadedness/dizzyness, leg swelling/pain/redness Specific instructions related to your condition: Please go to your PCP's office tomorrow for bloodwork (an INR check) Follow-up Appointments after Discharge Provider and Service Date Time Location Anticoagulation management 06/22/10 12:45pm PCP office Estee Stinson APRN 07/05/10 4:15pm PCP office Anticoagulation Management after Discharge Indication for anticoagulation therapy: pulmonary emobolism INR Goal: 2-3 Expected duration of treatment: minimum of 6 months Follow up INR scheduled on: 06/22/10 Provider/Team responsible for ongoing outpatient anticoagulation management: Estee Stinson phone: contact with provider/team made on: day of discharge Coumadin dosing instruction: Follow schedule below until your first INR check after discharge Day of discharge: (day #1): 5mg (dosed in the hospital) Day #2: Await guidance from PCP office regarding dose Coumadin should be taken at the same time everyday, preferably after 5pm. If you have not received a call from your provider within 24hrs of having your INR drawn, please call your outpatient provider for further dose instructions. Please review your Coumadin Pack upon discharge. The following table shows your most recent INR results and Warfarin Doses: Dates Most Recent INR Levels Most Recent Warfarin Doses 06/21/10 1.0 5mg (to be given today) Your Inpatient Medical Team at [facility] Name(s) of your inpatient provider(s): Dr. Goyo Lawson For questions regarding issues relating to your hospitalization on the Medical Service, please contact your inpatient physician through the [facility] Coder . Issues after hours and on weekends will be handled by the Hospitalist staff on-call. Your Primary Care Provider ESTEE STINSON APRN * Attachments The following attachments cannot be sent through Care Everywhere. * PULMONARY EMBOLISM: AFTER YOUR VISIT (IRANIAN) * TIPS TO PREVENT BLOOD CLOTS: AFTER YOUR VISIT (IRANIAN) * CONSISTENT VITAMIN K DIET: AFTER YOUR VISIT (IRANIAN) documented in this encounter Medications at Time of Discharge [...] 02/03/2007 04/05/2011 documented as of this encounter Progress Notes * Goyo Lawson MD - 06/21/2010 1:44 PM EDT [facility] Hospital Medicine - Attending Day of Discharge Documentation Discharge diagnosis No resolved problems to display. Active Hospital Problems Diagnoses ??? Pulmonary embolism, unprovoked ??? Pericardial effusion Resolved Hospital Problems Diagnoses Date Resolved Secondary Issues There are no active non-hospital problems to display for this patient. The patient has been seen, examined and is ready for discharge. Plans D/c home on warfarin with 5 day lovenox bridge; PCP follow-up for anticoag management Please see the Discharge Summary for complete details 20 minutes were spent in face to face patient care. * Estee Loera RN - 06/21/2010 10:53 AM EDT Encounter Date: 06/21/2010 Patient Name: Nelsy Ruffin MR#:[id number] S: I'm still having some pain... In my back (indicating posterior shoulder blade) especially when I take a deep breath. O: patient reviewed in multidisciplinary rounds; CRC has reviewed E-Dh notes; introduced self and CRC role to patient and spouse Geovanni ([phone]); patient and agree to CRC services; pt currently lives w/ in own home in [place], [place]. Reason for hospital admission: pulmonary embolism. Current functional status/mobility: independent. Baseline functional status/mobility: no functional deficits. Home environment: not assessed. PCP and date of last appt: listed as Dr. Monica Stinson, pt verifies that as accurate. Current home services/DME and vendor: none. Insurance coverage: Medicare A,B. Prescription benefit and pharmacy: no prescription coverage, uses [facility] in [facility]. CRC called pharmacy to inquire about pt's [id number] expense for 5 day course of lovenox andshared cost w/ pt and . Financial concerns: no concerns voiced. Anticipated services at discharge: no needs noted at this time. Transportation at discharge: spouse will transport pt home. Social support: Geovanni. A: anticipate discharge w/in next 24 hours. P: This communications writer or OCM colleague will continue to follow patient to assist w/ changing needs. CRC will collaborate w/ patient, medical team and family to formulate discharge plan. CRC may be reached on pager [phone] or by leaving a voice mail message at ext [phone]. Medical Team: Hospitalist Team, pager [phone]. Estee Loera RN, MSN, CRC Clinical Hook Tender Office of Care Management Pager [phone] Phone: [phone] documented in this encounter H&P Notes * Memo Rosas, DO - 06/21/2010 8:07 AM EDT Inpatient Hospital Medicine - Admission Note Problem List: PE ID: [id number] y.o. Female presents to [facility] with unprovoked PE History of Present Illness: HPI 74 yo female with h/o HTN and hyperlipidemia presents for further evaluation and treatment of unprovoked PE. Patient states she was in her usual state of health then experienced acute onset of Right sided flank pain that radiated to her back. She reported respirophasic nature of the pain. She reported to [facility] ED for evaluation and was found to have RLL segmental PE on CT scan. Initial presentation found her with normal heart rate, SBP and RR. She had a room air sat of nearly 100%. She was transferred for further evaluation. The patient denies h/o Cancer and had a colonoscopy which showed diverticular disease only. At the time of my evaluation the patient had no complaints. Review of Systems: Review of Systems Constitutional: Negative for fever, chills and fatigue. Respiratory: Negative for cough, chest tightness and shortness of breath. Cardiovascular: Positive for chest pain. Negative for palpitations. Musculoskeletal: Positive for back pain. Negative for myalgias. Neurological: Negative for dizziness, syncope, weakness and numbness. Past Medical and Surgical History: Past Medical History Diagnosis Date ??? Hypertension ??? GERD (gastroesophageal reflux disease) ??? Hyperlipidemia Past Surgical History Procedure Date ??? Appendectomy Prior To Admission Medications: Prescriptions prior to admission Medication Sig Dispense Refill ??? omeprazole (PRILOSEC) 20 mg capsule Take 20 mg by mouth daily. ??? ibuprofen (ADVIL;MOTRIN) 400 mg tablet Take 400 mg by mouth every 6 hours as needed. ??? irbesartan-hydrochlorothiazide (AVALIDE) 150-12.5 mg per tablet ??? atorvastatin (LIPITOR) 10 mg tablet Allergies: Allergies Allergen Reactions ??? Codeine Phos CIS - Nausea/Vomiting Family History: History reviewed. No pertinent family history. Social History and Habits: History Social History ??? Marital Status: Spouse Name: N/A Number of Children: N/A ??? Years of Education: N/A Occupational History ??? Not on file. Social History Main Topics ??? Smoking status: Former Smoker -- 0.5 packs/day for 3 years ??? Smokeless tobacco: Former User Quit date: 06/21/1989 ??? Alcohol Use: 1.2 oz/week 2 Glasses of wine, 0 Cans of beer, 0 Shots of liquor per week ??? Drug Use: No ??? Sexually Active: Other Topics Concern ??? Not on file Social History Narrative ??? No narrative on file Immunizations: Immunization History Administered Date(s) Administered ??? Hepatitis A 02/03/2006 ??? IPV 02/03/2006, 03/10/2006, 09/08/2006 ??? Td 02/03/2006 ??? Typhoid Live 02/03/2006 Physical Exam: Last Set of Vitals and range of vitals over past 24 hours: Last value Range last 24 hrs Temperature Temp: 36.8 ??C (98.2 ??F) Temp: [36.8 ??C (98.2 ??F)] Heart Rate Heart Rate: 68 Heart Rate: [68] Blood Pressure BP: 148/72 mmHg BP: (148)/(72) Respiratory Rate Resp: 16 Resp: [16] SpO2 SpO2: 95 % SpO2: [95 %] Physical Exam Constitutional: She appears well-developed and well-nourished. HENT: Head: Normocephalic and atraumatic. Eyes: Conjunctivae are normal. Pupils are equal, round, and reactive to light. No scleral icterus. Neck: No JVD present. Cardiovascular: Normal rate, regular rhythm and normal heart sounds. No murmur heard. Pulmonary/Chest: Effort normal and breath sounds normal. No respiratory distress. She has no wheezes. She has no rales. She exhibits no tenderness. Abdominal: Soft. Bowel sounds are normal. Musculoskeletal: Normal range of motion. She exhibits no edema. Neurological: She is alert. Skin: Skin is warm and dry. Laboratory (Last 24 Hours): Results for orders placed during the hospital encounter of 06/21/10 (from the past 24 hour(s)) CBC (WITH DIFF) Component Value Range ??? WBC 7.0 4.0 - 10.0 (x10(3)/mcL) ??? RBC 3.56 (*) 3.93 - 5.22 (x10(6)/mcL) ??? Hemoglobin 11.3 11.2 - 15.7 (gm/dL) ??? Hematocrit 33.3 (*) 34.0 - 45.0 (%) ??? MCV 93.5 79.0 - 94.0 (fL) ??? MCH 31.7 26.6 - 32.2 (pg) ??? MCHC 33.9 32.0 - 36.5 (gm/dL) ??? Platelets 243 145 - 370 (x10(3)/mcL) ??? RDWSD 44.1 35.0 - 46.0 (fL) ??? RDWCV 12.9 10.9 - 14.4 (%) ??? MPV 9.8 9.0 - 12.0 (fL) BASIC METABOLIC PANEL (NON-FASTING) Component Value Range ??? Glucose Lvl 159 60 - 199 (mg/dL) ??? BUN 16 8 - 18 (mg/dL) ??? Creatinine 0.64 (*) 0.70 - 1.20 (mg/dL) ??? Sodium 140 135 - 145 (mmol/L) ??? Potassium 3.7 3.5 - 5.0 (mmol/L) ??? Chloride 103 98 - 107 (mmol/L) ??? CO2 27 22 - 31 (mmol/L) ??? Anion Gap 10 5 - 15 (mmol/L) ??? Calcium 9.0 8.5 - 10.5 (mg/dL) ? ? Estimated GFR >60 >=60 PRO-BRAIN NATRIURETIC PEPTIDE Component Value Range ? ? ProBNP 44 <=125 (pg/mL) REFLEX LAB-A-DIFF Component Value Range ??? Neutrophils % 72.2 (*) 34.0 - 71.0 (%) ??? Neutr Abs (ANC) 5.07 1.50 - 6.30 (x10(3)/mcL) ??? Lymphocytes % 20.9 19.0 - 53.0 (%) ??? Lymphocytes Abs 1.5 1.0 - 3.6 (x10(3)/mcL) ??? Monocytes % 5.7 4.0 - 13.0 (%) ??? Monocyte Abs 0.4 0.2 - 1.0 (x10(3)/mcL) ??? Eosinophils % 0.6 0.0 - 7.0 (%) ??? Eosinophils Abs 0.0 0.0 - 0.5 (x10(3)/mcL) ??? Basophils % 0.3 0.0 - 2.0 (%) ??? Basophils Abs 0.0 0.0 - 0.2 (x10(3)/mcL) ??? Immature Gran % 0.30 0.00 - 0.66 (%) ??? Deann Gran Abs 0.02 0.00 - 0.05 (x10(3)/mcL) PROTHROMBIN TIME Component Value Range ??? PT 13.9 12.3 - 14.7 (sec) ??? INR 1.0 0.9 - 1.1 APTT Component Value Range ??? PTT 56 (*) 25 - 37 (sec) Radiology: OSH CT RLL Embolism Mod pericardial effusion Small subcarinal node No mediastinal nodes Small R pleural effusion Other Studies: EKG - sinus argenis, normal voltage, normal intervals, no TWI, no ST seg changes Assessment: 74 yo female with unprovoked PE admitted for further evaluation. Reassuring exam without signs of overt Right heart strain or failure. Will assess ambulatory sat and obtain TTE this AM. Likely short stay with transition to lovanox and coumadin in coming hours. Plan: ?? Admit to Medicine ?? Cycle biomarkers ?? TTE in AM ?? Check amb oxygen sat ?? Hep gtt for now with transition to lovanox and coumadin ?? Follow cbc and lytes ?? Physical Therapy referral ?? DVT Prophylaxis- heparin gtt ?? If currently a smoker - advised about smoking cessation and will provide smoking cessation material and support. ?? Pneumovax and Influenza Immunizations given as needed. ?? Discussed Advanced Directives and Code Status. The patient wishesto be Full Code. A copy of this document will be sent to the patient's Primary Care Physician and/or Referring Physician. MEMO ROSAS 06/21/2010 documented in this encounter Miscellaneous Notes * Miscellaneous - Payton Alonzo - 06/26/2010 9:16 AM EDT * Discharge Summary - Goyo Lawson MD - 06/21/2010 1:58 PM EDT Inpatient Hospital Medicine - Discharge Summary Patient Name: Nelsy Ruffin Patient Age: 74 y.o. Birthdate: 1935 Admit date: 06/21/2010 Discharge date and time: No discharge date for patient encounter. Attending Physician: Goyo Lawson MD Discharge Diagnoses (Hospital Problems) and Secondary Diagnoses (Chronic Problems): Active Hospital Problems Diagnoses ??? Pulmonary embolism, unprovoked ??? Pericardial effusion Resolved Hospital Problems Diagnoses Date Resolved Active Non-Hospital Problems Diagnoses ??? Hypertension ??? GERD (gastroesophageal reflux disease) ??? Hyperlipidemia Operations/Major Procedures: Operations: * No surgery found * Other Major Procedures: None History of Presentation: Per admission H&P:74 yo female with h/o HTN and hyperlipidemia presents for further evaluationand treatment of unprovoked PE. Patient states she was in her usual state of health then experienced acute onset of Right sided flank pain that radiated to her back. She reported respirophasic nature of the pain. She reported to [facility] ED for evaluation and was found to have RLL segmental PE on CT scan. Initial presentation found her with normal heart rate, SBP and RR. She had a room air sat of nearly 100%. She was transferred for further evaluation. The patient denies h/o Cancer and had a colonoscopy which showed diverticular disease only. At the time of my evaluation the patient had no complaints. Of note, outside hospital CT scan made mention of a pericardial effusion. Admission VS: T:36.8'C, HR:68, BP:148/72, R:16, satting 95% on RA. Physical exam notable for bibasilar crackles, otherwise CTAB; non-labored speech and breathing, NAD. Admission labs notable for negative cardiac enzymes, BNP:44 Hospital Course: Pt was admitted to the Medicine Service, and initially continued on a heparin gtt, prior to being converted to lovenox 70mg bid. TTE performed here for dual purposes of assessing pericardial effusionas well as looking for evidence of R heart strain pattern. The echo was an unremarkable study, withevidence of a mild-mod pericardial effusion, without tamponade physiology; normal respirophasic variation of IVC. EKG performed here unchanged from prev, from 01/23 - Q in III, PRWP. Patient was started on warfarin 5mg prior to discharge, and will continue to remain on warfarin anticoagulation for a minimum of 6 months, given that this is an unprovoked VTE. She will need to remain on a lovenox bridge for a minimum of 5 days, and until INR therapeutic for 2 consecutive days. She is scheduled to have INR check done tomorrow at PCP's office. Patient instructed to use OTC analgesia for R shoulder pleuritic pain. Important Studies and Lab Data: Labs: Lab Results Component Value Date WBC 7.0 06/21/2010 HGB 11.3 06/21/2010 HCT 33.3* 06/21/2010 MCV 93.5 06/21/2010 Lab Results Component Value Date CREATININE 0.64* 06/21/2010 BUN 16 06/21/2010 NA 140 06/21/2010 K 3.7 06/21/2010 CL 103 06/21/2010 CO2 27 06/21/2010 Studies: TTE 06/21/10:1.Left ventricular chamber size, wall thickness, global and segmental systolic function are within normal limits. Ejection fraction is estimated to be 55%. There are no left ventricular segmental wall motion abnormalities. Doppler assessment is consistent with normal left sided filling pressure. Right ventricular chamber size, wall thickness, and systolic function are within normal limits. 2. No hemodynamically significant valvular disease. 3. There is a small (to moderate, measures 7mm in diastole) circumferential pericardial effusion. There is no echo evidence of pericardial tamponade. Pending Studies and Lab Data: None Discharge Conditions/Prognosis: Excellent; pt is hemodynamically stable, maintaining oxygen sats of 98% on RA Discharge to: Home Discharge Medications: Current Discharge Medication List New Meds Details enoxaparin (LOVENOX) 70 mg Inject 70 mg subcutaneously 2 times daily. Qty: 10 Syringe Refills: 1 warfarin (COUMADIN) 1 mg tablet Take by mouth daily. Follow dosing instructions given to you by your PCP's office. Qty: 20 tablet Refills: 0 Continued medications, unchanged Details ibuprofen (ADVIL;MOTRIN) 400 mg Take 400 mg by mouth every 6 hours as needed. Qty: Refills: irbesartan-hydrochlorothiazide (AVALIDE) 1 tablet Take 1 tablet by mouth daily. Qty: Refills: omeprazole (PRILOSEC) 20 mg Take 20 mg by mouth daily. Qty: Refills: atorvastatin (LIPITOR) 10 mg tablet Qty: Refills: Updated Allergies/ADRs: Allergies Allergen Reactions ??? Codeine Phos Nausea And Vomiting Follow-up Recommendations for Providers: - Ongoing management of anticoagulation, with final determination of length of anticoagulation. Consider hypercoagulability work-up once pt completes 6-12mo course of warfarin, if pt does not want precious on lifelong anticoagulation. - Consider repeat echocardiogram in 3-4 weeks, to ensure complete resolution of pericardial effusion. Instructions Given to Patient at Discharge: Provider Instructions Instruction after leaving the hospital Why you were hospitalized: pulmonary embolism Call your doctor or seek medical attention if you develop the following: shortness of breath, severe chest pain, lightheadedness/dizzyness, leg swelling/pain/redness Specific instructions related to your condition: Please go to your PCP's office tomorrow for bloodwork (an INR check) Follow-up Appointments after Discharge Provider and Service Date Time Location Anticoagulation management 06/22/10 12:45pm PCP office Estee Stinson APRN 07/05/10 4:15pm PCP office Anticoagulation Management after Discharge Indication for anticoagulation therapy: pulmonary emobolism INR Goal: 2-3 Expected duration of treatment: minimum of 6 months Follow up INR scheduled on: 06/22/10 Provider/Team responsible for ongoing outpatient anticoagulation management: Estee Stinson phone: contact with provider/team made on: day of discharge Coumadin dosing instruction: Follow schedule below until your first INR check after discharge Day of discharge: (day #1): 5mg (dosed in the hospital) Day #2: Await guidance from PCP office regarding dose Coumadin should be taken at the same time everyday, preferably after 5pm. If you have not received a call from your provider within 24hrs of having your INR drawn, please call your outpatient provider for further dose instructions. Please review your Coumadin Pack upon discharge. The following table shows your most recent INR results and Warfarin Doses: Dates Most Recent INR Levels Most Recent Warfarin Doses 06/21/10 1.0 5mg (to be given today) Your Inpatient Medical Team at [facility] Name(s) of your inpatient provider(s): Dr. Goyo Lawson For questions regarding issues relating to your hospitalization on the Medical Service, please contact your inpatient physician through the [facility] Coder . Issues after hours and on weekends will be handled by the Hospitalist staff on-call. Your Primary Care Provider ESTEE STINSON APRN General Instructions Provider Contact Information: Dr. Goyo Lawson Discharge References/Attachments: Discharge References/Attachments PULMONARY EMBOLISM: AFTER YOUR VISIT (IRANIAN) TIPS TO PREVENT BLOOD CLOTS: AFTER YOUR VISIT (IRANIAN) CONSISTENT VITAMIN K DIET: AFTER YOUR VISIT (IRANIAN) For questions regarding this document or issues relating to this hospitalization on the Medical Service, please contact your inpatient physician through the [facility] Coder . Issues afterhours and on weekends will be handled by the Hospitalist staff on-call. Signed: GOYO LAWSON 06/21/2010 * Miscellaneous - Provider, Payton - 06/21/2010 1:04 PM EDT * Plan of Care - Reebcca Lester RN - 06/21/2010 10:12 AM EDT Problem: Thrombolytic Therapy (Adult, Pediatric, Obstetric) Intervention: Bleeding Precautions Heparin Drip discontinued when Lovenox subcutaneously started. Does complain of 2/10 right scapula discomfort with radiation to back and chest. and patient instructed in administration of Lovenox. Written material given, explained and left at bedside. Geovanni Quiroga had administered Lovenox 8 years ago when patient broke her leg. documented in this encounter Plan of Treatment Pending Results Name Type Priority Associated Diagnoses Date/Time Echo Transthoracic (Complete) Echocardiography Routine Pulmonary embolism 06/21/2010 9:48 AM EDT documented as of this encounter Procedures Procedure Name Priority Date/Time Associated Diagnosis Comments EKG 12-LEAD Routine 06/21/2010 10:35 AM EDT Pulmonary embolism APTT Routine 06/21/2010 5:45 AM EDT PROTHROMBIN TIME Routine 06/21/2010 5:45 AM EDT DIFFERENTIAL, AUTOMATED Routine 06/22/19 11 5:44 AM EDT CARDIAC ENZYMES ([facility]) Routine 06/21/2010 5:44 AM EDT CBC (WITH DIFF) Routine 06/21/2010 5:44 AM EDT PRO-BRAIN NATRIURETIC PEPTIDE Routine 06/21/2010 5:44 AM EDT BASIC METABOLIC PANEL Routine 06/21/2010 5:44 AM EDT ECHOCARDIOGRAM TRANSTHORACIC Routine 06/21/2010 documented in this encounter Results * EKG 12-LEAD Is a rhythm strip needed?: No; Reason for Exam:: Chest Pain (06/21/2010 10:35 AM EDT) Ventricular rate 69 BPM MUSE SYSTEM Atrial Rate 69 BPM MUSE SYSTEM P-R Interval 176 ms MUSE SYSTEM QRS Duration 76 ms MUSE SYSTEM Q-T Interval 406 ms MUSE SYSTEM QTC Calculated (Bezet) 435 ms MUSE SYSTEM Calculated P [place] 52 degrees MUSE SYSTEM Calculated R [place] 7 degrees MUSE SYSTEM Calculated T [place] 43 degrees MUSE SYSTEM INTERPRETATION Normal sinus rhythm Possible Anterior infarct , age undetermined Abnormal ECG When compared with ECG of 03-FEB-2007 14:21, No significant change was found Confirmed by MD Maya Timothy ([id number]) on 06/21/2010 11:50:11 AM MUSE SYSTEM 06/21/2010 10:3 5 AM EDT 06/21/2010 11:50 AM EDT Memo Rosas DO ECG ORDERABLES MUSE SYSTEM * (ABNORMAL) APTT (06/21/2010 5:45 AM EDT) Partial Thromboplastin Time 56(H) 25 - 37 sec [facility] Comment: Recommended therapeutic PTT range for full dose unfractionated heparin is 80-114 seconds. Blood specimen (specimen) 06/21/2010 5:45 AM EDT 06/21/2010 5:51 AM EDT Memo Rosas DO HEMATOLOGY ORDERABLE S Performing Organization Address [facility] Co de Phone Number [facility] * Protime-INR (06/21/2010 5:45 AM EDT) Prothrombin Time 13.9 12.3 - 14.7 sec [facility] Comment: [facility] Transfusion Committee Guidelines: INR less than 2.0, PTT less than OR equal to 43.5 seconds, or Fibrinogen greater than or equal to 100 mg/dl indicate adequate procoagulant activity for hemostasis in patients without underlying bleeding disorders. International Normalization Ratio 1.0 0.9 - 1.1 [facility] Blood specimen (specimen) 06/21/2010 5:45 AM EDT 06/21/2010 5:51 AM EDT Memo Rosas DO HEMATOLOGY ORDERABLE S [facility] [employer] * CARDIAC ENZYMES (06/21/2010 5:44 AM EDT) Troponin-T <0.03 <=0.03 ng/mL [facility] [facility] Comment: 0.03 ng/mL: Represents the 99th percentile upper reference limit for normals. >0.03 ng/mL: Elevated cardiac troponin T level indicative of myocardial damage. Diagnosis of acute, evolving or recent [place] requires a typical rise and gradual fall of cTnT with at least ONE of the following: a) Ischemic symptoms b) Development of pathologic Q waves on the ECG c) ECG changes indicative of eschemia (S-T segment elevation/depression) d) Coronary artery intervention Serial bloods should be obtained for testing on admission, at 6 to 9 hrs and again at 12 to 24 hrs if earlier samples are negative and the clinical index of suspicion is high. Reference: [Myocardial infarction redefined a consensus document of the Joint Society of Cardiology/[place] College [employer] Committee for the redefinition of myocardial infarction. Journal of the [place] [employer] 2000; 36: 959-969] Creatine Kinase 62 0 - 160 unit/L CERNER MILLENNIUM Blood specimen (specimen) 06/21/2010 5:44 AM EDT 06/21/2010 6:07 AM EDT Memo Rosas DO CHEMISTRY ORDERABLES CERNER MILLENNIUM * (ABNORMAL) REFLEX LAB-A-DIFF (06/21/2010 5:44 AM EDT) Neutrophil % 72.2(H) 34.0 - 71.0 % CERNER MILLENNIUM Neutrophil Absolute 5.07 1.50 - 6.30 x10(3)/mc L CERNER MILLENNIUM Lymph % 20.9 19.0 - 53.0 % CERNER MILLENNIUM Lymphocytes Abs 1.5 1.0 - 3.6 x10(3)/mc L CERNER MILLENNIUM Monocyte % 5.7 4.0 - 13.0 % CERNER MILLENNIUM Monocyte Abs 0.4 0.2 - 1.0 x10(3)/mc L CERNER MILLENNIUM Eos % 0.6 0.0 - 7.0 % CERNER MILLENNIUM Eosinophils Abs 0.0 0.0 - 0.5 x10(3)/mc L CERNER MILLENNIUM Basophil % 0.3 0.0 - 2.0 % CERNER MILLENNIUM Baso Absolute 0.0 0.0 - 0.2 x10(3)/mc L CERNER MILLENNIUM Immature Gran % 0.30 0.00 - 0.66 % CERNER MILLENNIUM Comment: Immature granulocytes(IG's)percentage and absolute count will include metamyelocytes, myelocytes, and promyelocytes. Blood smears from CBCs yielding IG's will be scanned manually for concordance. If this scan disagrees with the automated IG or if promyelocytes are noted, a manual differential will be performed. Immature Gran Absolute 0.02 0.00 - 0.05 x10(3)/mc L CERNER MILLENNIUM Blood specimen (specimen) 06/21/2010 5:44 AM EDT 06/21/2010 5:50 AM EDT Memo Rosas DO HEMATOLOGY ORDERABLE S Performing Organization Address [facility] Co de Phone Number [facility] * Brain natriuretic peptide (on admission) (06/21/2010 5:44 AM EDT) NT-proBNP 44 <=125 pg/mL [facility] Blood specimen (specimen) 06/21/2010 5:44 AM EDT 06/21/2010 5:50 AM EDT Memo Rosas DO CHEMISTRY ORDERABLES Performing Organization Address [facility] de Phone Number [facility] * (ABNORMAL) Basic metabolic panel (06/21/2010 5:44 AM EDT) Glucose 159 60 - 199 mg/dL CERNER MILLENNIUM Comment:Diabetes: >=200 mg/d L plus symptoms Blood Urea Nitrogen 16 8 - 18 mg/dL CERNER MILLENNIUM Creatinine 0.64(L) 0.70 - 1.20 mg/dL CERNER MILLENNIUM Sodium 140 135 - 145 mmol/L CERNER MILLENNIUM Potassium 3.7 3.5 - 5.0 mmol/L CERNER MILLENNIUM Comment: Please note: ??Patients with WBC >100,000 may have falsely elevated Potassium levels. ??For accurate Potassium quantification in these patients send serum separator tube (gold top) for subsequent determinations. ??Contact the Clinical Chemistry Laboratory if there are any questions. Chloride 103 98 - 107 mmol/L CERNER MILLENNIUM Carbon Dioxide 27 22 - 31 mmol/L CERNER MILLENNIUM Anion Gap 10 5 - 15 mmol/L CERNER MILLENNIUM Calcium 9.0 8.5 - 10.5 mg/dL CERNER MILLENNIUM Est Glomerular Filtration Rate >60 >=60 CERNER MILLENNIUM Comment: The National Kidney Disease Education Program (NKDEP) has recommended all laboratories report estimated GFR (eGFR) along with plasma creatinine measurements to assist you with recognition of early kidney disease. Caveats: ??Plasma creatinine should be at steady-state (unchanged within the past week). For patients multiply eGFR by 1.2.MDRD equation has not been validated for pediatric patients and is only valid for patients with age >= 18 years. At present, NKDEP does NOT recommend using the MDRD equation for drug dosing purposes and pharmacists should continue to use their current dosing methods. In addition, numerical eGFR values greater than 60 ml/min/1.73 square meters should be treated as > 60, and not an exact number due to greater inaccuracies at these higher values. Per NKDEP, they classify normal renal function as any GFR >60ml/min/1.73 square meters; chronic kidney disease when GFR <60, and renal failure when GFR <15. ??This calculation may not be valid for patients with atypical muscle mass (very lean or obese), acute renal failure, and in patients with diabetic kidney disease. References: http://nkdep.nih.gov/resources/NKDEP_Suggestn4Labs_0606_508.pdf http://www.kidney.org/professionals/kls/pdf/faq_gfr.pdf Blood specimen (specimen) 06/21/2010 5:44 AM EDT 06/21/2010 5:50 AM EDT Memo Rosas DO CHEMISTRY ORDERABLES CERHERB SCHROEDERENNIUM * (ABNORMAL) CBC (with Diff) (06/21/2010 5:44 AM EDT) White Blood Cell 7.0 4.0 - 10.0 x10(3)/mc L CERNER MILLENNIUM Red Blood Cell 3.56(L) 3.93 - 5.22 x10(6)/mc L CERNER MILLENNIUM Hemoglobin 11.3 11.2 - 15.7 gm/dL CERNER MILLENNIUM Hematocrit 33.3(L) 34.0 - 45.0 % CERNER MILLENNIUM Mean Cell Volume 93.5 79.0 - 94.0 fL CERNER MILLENNIUM Mean Cell Hemoglobin 31.7 26.6 - 32.2 pg CERNER MILLENNIUM Mean Cell Hemoglobin Concentration 33.9 32.0 - 36.5 gm/dL CERNER MILLENNIUM Platelet 243 145 - 370 x10(3)/mc L CERNER MILLENNIUM RDW Standard Deviation 44.1 35.0 - 46.0 fL CERNER MILLENNIUM RDW coefficient of variation 12.9 10.9 - 14.4 % CERNER MILLENNIUM Mean Platelet Volume 9.8 9.0 - 12.0 fL CERNER MILLENNIUM Blood specimen (specimen) 06/21/2010 5:44 AM EDT 06/21/2010 5:50 AM EDT Memo Rosas DO HEMATOLOGY ORDERABLE S [facility] * ECHOCARDIOGRAM TRANSTHORACIC (06/21/2010) Anatomical Region Laterality Modality Other 06/21/2010 Narrative 06/21/2010 11:55 AM EDT Procedure: ? Transthoracic Echocardiogram ? Patient: ? CAT BESTANINE F ? (Age): 1935(74) Med Rec#: ?[id number] ?Sex: ?F ? Site Loc: ?[facility] ?Ht / Wt: ??155(cm)/68(kg) Pt. Loc: ? Adult Floor ? BSA: ?1.67 Study Date: ?06/21/2010 ?Pt. Type: Inpatient Tape: ? Referring: Clau Rosas Ceramic Tile Setter: Gemma Rebolledo RCS Interpreting Fellow: Fei Reardon Diagnosis:CPT Code(s): ??Echo Full (45006), ??Spectral Doppler (00705), Color Doppler (03884), Indication(s): ??Pulmonary embolus, R/O Rhythm: Sinus HR ?BP ?132/72 ?? SUMMARY: 1. Left ventricular chamber size, wall thickness, global and segmental systolic function are within normal limits. Ejection fraction is estimated to be 55%. ??There are no left ventricular segmental wall motion abnormalities. ??Doppler assessment is consistent with normal left sided filling pressure. ??Right ventricular chamber size, wall thickness, and systolic function are within normal limits. 2. No hemodynamically significant valvular disease. 3. There is a small (to moderate, measures 7mm in diastole) circumferential pericardial effusion. ??There is no echo evidence of pericardial tamponade. 4. See remainder of report for additional findings. FINDINGS: Left Ventricle ?Left ventricular chamber size, wall thickness, global and segmental systolic function are within normal limits. Ejection fraction is estimated to be 55%. ?There are no left ventricular segmental wall motion abnormalities. ?Doppler assessment is consistent with normal left sided filling pressure. Left Atrium ?The left atrium is normal in size. Right Ventricle ?Right ventricular chamber size, wall thickness, and systolic function are within normal limits. ?Pulmonary artery hypertension could not be assessed due to inadequate tricuspid regurgitation jet. ?The estimated right atrial pressure is 3 mmHg. Right Atrium ?The right atrium is normal in size. Aortic Valve ?The aortic valve leaflets are mildly thickened. ?Systolic excursion of the aortic valve is normal. ?There is aortic annular calcification. ?There is no evidence of aortic valve stenosis. ?There is no evidence of aortic regurgitation. Mitral Valve ?The mitral valve appears normal in structure and function. ?There is trace mitral regurgitation present. Tricuspid Valve ?The tricuspid valve appears normal in structure and function. ?There is trace tricuspid regurgitation present. Pulmonic Valve ?The pulmonic valve is not well visualized. Pericardium ?There is a small circumferential pericardial effusion. ?There is no echo evidence of pericardial tamponade. Aorta ?The aortic root is normal in size. ?The ascending aorta is normal in size. Pulmonary Artery ?The main pulmonary artery appears normal. Venous ?The inferior vena cava appears normal in size. ?There is a greater than 50% respiratory change in the inferior vena cava dimension. Misc ?Two-dimensional echo, spectral Doppler and color Doppler performed. Wall Motion: Segment Name ?Rest ? Base-Anteroseptal ?? Normal ? Base-Anterior ? Normal ? Base-Anterolateral ??Normal ? Base-Posterolateral Normal ? Base-Inferior ? Normal ? Base-Inferoseptal ?? Normal ? Mid-Anteroseptal ?Normal ? Mid-Anterior ?Normal ? Mid-Anterolateral ?? Normal ? Mid-Posterolateral ??Normal ? Mid-Inferior ?Normal ? Mid-Inferoseptal ?Normal ? [place]-Septal ? Normal ? [place]-Anterior ? Normal ? [place]-Lateral ?Normal ? [place]-Inferior ? Normal ? [place]-Tip ?Normal ? Chambers ?Value ?Units (Range) ? LV EF Est ? 55 ? % (55 to 80) ? IVSd 2D ? 1.1 ?cm ? LVIDd 2D ?4.1 ?cm ? PWd 2D ?1.1 ?cm ? LVIDs 2D ?2.3 ?cm ? LVFS 2D ? 44 ? % ? LA area ? 19 ? cm2 (<21) ? RA area ? 17 ? cm2 (<18) ? Ao root ? 2.9 ?cm (2.1 to 3.6) ? Asc Ao ?3.1 ?cm (2 to 3.5) ? Mitral Valve ?Value ?Units (Range) ? E peak ?0.63 ? m/sec ? E/A ratio ? 1 ?ratio ? MVDT ?227 ?msec ? E1 ?0.09 ? m/sec ? E/E1 ?7 ?ratio ? Tricuspid/Pulmonic Valves ?Value ?Units (Range) ? RAP ? 3 ?mmHg ? This report has been electronically signed by: Duncan Godoy MD ? 06/21/2010 11:55:10 Images reviewed and interpretation verified [facility] Procedure Note 06/21/2010 Procedure: Transthoracic Echocardiogram Patient: CAT Chavez (Age): 1935(74) Med Rec#: [id number] Sex: F Site Loc: [facility] Ht / Wt: 155(cm)/68(kg) Pt. Loc: Adult Floor BSA: 1.67 Study Date: 06/21/2010 Pt. Type: Inpatient Tape: Referring: Clau Rosas Ceramic Tile Setter: Gemma Rebolledo RCS Interpreting Fellow: Fei Reardon Diagnosis:CPT Code(s): Echo Full (05723), Spectral Doppler (41821), Color Doppler (72887), Indication(s): Pulmonary embolus, R/O Rhythm: Sinus HR BP 132/72 SUMMARY: 1. Left ventricular chamber size, wall thickness, global and segmental systolic function are within normal limits. Ejection fraction is estimated to be 55%. There are no left ventricular segmental wall motion abnormalities. Doppler assessment is consistent with normal left sided filling pressure. Right ventricular chamber size, wall thickness, and systolic function are within normal limits. 2. No hemodynamically significant valvular disease. 3. There is a small (to moderate, measures 7mm in diastole) circumferential pericardial effusion. There is no echo evidence of pericardial tamponade. 4. See remainder of report for additional findings. FINDINGS: Left Ventricle Left ventricular chamber size, wall thickness, global and segmental systolic function are within normal limits. Ejection fraction is estimated to be 55%. There are no left ventricular segmental wall motion abnormalities. Doppler assessment is consistent with normal left sided filling pressure. Left Atrium The left atrium is normal in size. Right Ventricle Right ventricular chamber size, wall thickness, and systolic function are within normal limits. Pulmonary artery hypertension could not be assessed due to inadequate tricuspid regurgitation jet. The estimated right atrial pressure is 3 mmHg. Right Atrium The right atrium is normal in size. Aortic Valve The aortic valve leaflets are mildly thickened. Systolic excursion of the aortic valve is normal. There is aortic annular calcification. There is no evidence of aortic valve stenosis. There is no evidence of aortic regurgitation. Mitral Valve The mitral valve appears normal in structure and function. There is trace mitral regurgitation present. Tricuspid Valve The tricuspid valve appears normal in structure and function. There is trace tricuspid regurgitation present. Pulmonic Valve The pulmonic valve is not well visualized. Pericardium There is a small circumferential pericardial effusion. There is no echo evidence of pericardial tamponade. Aorta The aortic root is normal in size. The ascending aorta is normal in size. Pulmonary Artery The main pulmonary artery appears normal. Venous The inferior vena cava appears normal in size. There is a greater than 50% respiratory change in the inferior vena cava dimension. Misc Two-dimensional echo, spectral Doppler and color Doppler performed. Wall Motion: Segment Name Rest Base-Anteroseptal Normal Base-Anterior Normal Base-Anterolateral Normal Base-Posterolateral Normal Base-Inferior Normal Base-Inferoseptal Normal Mid-Anteroseptal Normal Mid-Anterior Normal Mid-Anterolateral Normal Mid-Posterolateral Normal Mid-Inferior Normal Mid-Inferoseptal Normal [place]-Septal Normal [place]-Anterior Normal [place]-Lateral Normal [place]-Inferior Normal [place]-Tip Normal Chambers Value Units (Range) LV EF Est 55 % (55 to 80) IVSd 2D 1.1 cm LVIDd 2D 4.1 cm PWd 2D 1.1 cm LVIDs 2D 2.3 cm LVFS 2D 44 % LA area 19 cm2 (<21) RA area 17 cm2 (<18) Ao root 2.9 cm (2.1 to 3.6) Asc Ao 3.1 cm (2 to 3.5) Mitral Valve Value Units (Range) E peak 0.63 m/sec E/A ratio 1 ratio MVDT 227 msec E1 0.09 m/sec E/E1 7 ratio Tricuspid/Pulmonic Valves Value Units (Range) RAP 3 mmHg This report has been electronically signed by: Duncan Godoy MD 06/21/2010 11:55:10 Images reviewed and interpretation verified [facility] Unknown ECHO ORDERABLES documented in this encounter Visit Diagnoses Diagnosis Pulmonary embolism, unprovoked- Primary Other pulmonary embolism and infarction Other pulmonary embolism and infarction Pericardial effusion Unspecified disease of pericardium documented in this encounter Administered Medications Inactive Administered Medications - up to 3 most recent administrations Medication Order MAR Action Action Date Dose Rate Site acetaminophen (TYLENOL) tablet 650 mg 650 mg, Oral, EVERY 6 HOURS PRN, Starting on Bibi 06/21/10 at 0515, Until Bibi 06/21/10 at 1858, Pain, Fever, for pain or temperature greater than or equal to 38.2 dgrees Celsius, Routine Given 06/21/2010 3:20 PM EDT 650 mg enoxaparin (LOVENOX) injection 70 mg 70 mg, Subcutaneous, EVERY 12 HOURS SCHEDULED (2 times per day), First dose on Bibi 06/21/10 at 0800, Until Discontinued, STAT Given 06/21/2010 8:52 AM EDT 70 mg Abdominal Tissue heparin 25,000 units in dextrose 5% 500 mL infusion 500-7,000 Units/hr (rounded to 10-140 mL/hr), Intravenous, CONTINUOUS, Starting on Bibi 06/21/10 at 0530, Until Bibi 06/21/10 at 0900, Patient Weight 65-69 kg Initial dose - 1,000 units/hr = 20 mL/hr PTT less than 60 sec - increase by 250 units/hr = 5 mL/hr PTT 60-79 sec- increase by 150 units/hr = 3 mL/hr PTT 80-114 sec - no change PTT 115-129 sec - decrease by 50 units/hr = 1 mL/hr PTT 130-145 sec - stop infusion for 30 min then decrease by 150 units/hr = 3 mL/hr PTT greater than 145 sec - stop infusion for 60 min then decrease by 200 units/hr = 4 mL/hr PTT greater than 145 sec X 2 - call house decorator See Bolus dosing guidance for aPTT values between 60-70 seconds under PRN medications , Routine Rate/Dose Change 06/21/2010 7:34 AM EDT 1,050 Units/hr 21 mL/hr New Bag 06/21/2010 3:45 AM EDT 800 Units/hr 16 mL/hr warfarin (COUMADIN) tablet 5 mg 5 mg, Oral, ONCE, 1 dose, On Bibi 06/21/10 at 1700, Routine Given 06/21/2010 3:32 PM EDT 5 mg documented in this encounter Active and Recently Administered Medications Times are shown in EDT. Scheduled Medication Order 06/19/2010 06/20/2010 06/21/2010 enoxaparin (LOVENOX) injection 70 mg 70 mg, Subcutaneous, EVERY 12 HOURS SCHEDULED (2 times per day), First dose on Bibi 06/21/10 at 0800, Until Discontinued, STAT 0852 (Given - Provid er: Rebecca Lester RN) warfarin (COUMADIN) tablet 5 mg (COMPLETED) 5 mg, Oral, ONCE, 1 dose, On Bibi 06/21/10 at 1700, Routine 1532 (Given - Provid er: Rebecca Lester RN)1700 (Due) Continuous Medication Order 06/19/2010 06/20/2010 06/21/2010 heparin 25,000 units in dextrose 5% 500 mL infusion (CANCELED) 500-7,000 Units/hr (rounded to 10-140 mL/hr), Intravenous, CONTINUOUS, Starting on Bibi 06/21/10 at 0530, Until Bibi 06/21/10 at 0900, Patient Weight 65-69 kg Initial dose - 1,000 units/hr = 20 mL/hr PTT less than 60 sec - increase by 250 units/hr = 5 mL/hr PTT 60-79 sec- increase by 150 units/hr = 3 mL/hr PTT 80-114 sec - no change PTT 115-129 sec - decrease by 50 units/hr = 1 mL/hr PTT 130-145 sec - stop infusion for 30 min then decrease by 150 units/hr = 3 mL/hr PTT greater than 145 sec - stop infusion for 60 min then decrease by 200 units/hr = 4 mL/hr PTT greater than 145 sec X 2 - call house decorator See Bolus dosing guidance for aPTT values between 60-70 seconds under PRN medications , Routine 0345 (New Bag - Prov ider: Kirstin Neal RN - Comment: Pt arrived from outside hospital with heparin infusing at 800units/hr, per Dr. Kenneth mcgrath to leave at this rate until result of PTT retuned)0734 (Rate/Dose Change - Provider: Rebecca Lester RN)0901 (Stopped - Provider: Rebecca Lester RN) PRN Medication Order 06/19/2010 06/20/2010 06/21/2010 acetaminophen (TYLENOL) tablet 650 mg (CANCELED) 650 mg, Oral, EVERY 6 HOURS PRN, Starting on Bibi 06/21/10 at 0515, Until Bibi 06/21/10 at 1858, Pain, Fever, for pain or temperature greater than or equal to 38.2 dgrees Celsius, Routine 1520 (Given - Provid er: Rebecca Lester RN) documented in this encounter Care Teams Biochemistry Technologist Relationship Specialty Start Date End Date Estee Stinson APRN PCP - General 01/09/10 10/12/14 documented as of this encounter
--- OUTSIDE RECORDS SUMMARY | 2023-10-08 23:31 | XMS_ITS | Encounter Summary ---
Author Organization [facility] [place] [address] Care Team Providers Care Industrial Maintenance Repairer Helper Name Role Phone LavacaEstee vance Thu VEGA Primary Care Provider [phone] Reason for Visit * Reason Comments Skin Lesion Encounter Details Date Type Department Care Team (Late st Contact Info) Description 01/17/2012 3:50 PM EST Office Visit Dermatology at [facility] [address] [place] [address] Jessenia Donovan MD [facility] [address] [place] [address] Neoplasm of unspecified nature of bone, soft tissue, and skin (Primary Dx); Herpes infection; Actinic keratosis Discharge Disposition: Home Social History Tobacco Use [...] as of this encounter Progress Notes * Prisca Brantley MD - 01/20/2012 11:32 AM EST I was the supervising physician working with dermatology resident Dr. Donovan in the dermatology clinic during this patient visit. The level of Resident supervision for this patient visit was indirect supervision with direct supervision immediately available. (definition: [facility] [place] on Graduate Medical Education, Supervision of Graduate Medical Trainees) I was immediately available to Dr. Donovan for questions and discussion regarding this visit. I have reviewed hisencounter note details and level of service. * Zion, Jessenia Hightower MD - 01/17/2012 3:57 PM EST DERMATOLOGY - NEW PATIENT NOTE Date of service: 01/17/2012 Nelsy Ruffin : 1935 Dermatology Resident Note: Jessenia Donovan MD Chief Problem: Chief Complaint Patient presents with ??? Skin Lesion Ms. Nelsy Ruffin is a 76 y.o. female. This is a new patient to me. Self referred specifically for the evaluation and management of the above problem. HPI: Ms. Ruffin presents for new spots and wants full skin exam. In particular, she is concerned witha -spot on left hairline,tip of nose,left jaw line. She also has a question about whether or not she has a herpes infection on her buttock. Intermittently presenting on her left buttock X 40 years. Past Skin History: never dematology Medical History: Patient Active Problem List Diagnoses Code ??? Pulmonary embolism, unprovoked 415.19AD ??? Pericardial effusion 423.9S ??? Hypertension 401.9AJ ??? GERD (gastroesophageal reflux disease) 530.81S ??? Hyperlipidemia 272.4S Medications: Current outpatient prescriptions ordered prior to encounter Medication Sig Dispense Refill ??? DISCONTD: amlodipine (NORVASC) 5 mg tablet Take 5 mg by mouth daily. ??? omeprazole (PRILOSEC) 20 mg capsule Take 20 mg by mouth daily. ??? ibuprofen (ADVIL;MOTRIN) 400 mg tablet Take 400 mg by mouth every 6 hours as needed. ??? irbesartan-hydrochlorothiazide (AVALIDE) 150-12.5 mg per tablet Take 1 tablet by mouth daily. Allergies: Allergies Allergen Reactions ??? Codeine Phos Nausea And Vomiting Family History: No family h/o melanoma, or Non Melanoma Skin Cancer No family h/o atopy, psoriasis, or other skin disease Social/Occupational History: retired Review of Systems: General: Feels well Skin: As per HPI; no other skin concerns Examination: Constitutional: Patient was alert, well-appearing and in no noticeable distress. Skin: A full skin examination was performed. This includes the head, neck, face and scalp includingbehind the ears. The chest, abdomen, back, and axillae, as well as the arms, hands, palms, fingers.Legs, feet, toes and soles were also examined. Buttocks and breasts were also examined with patientconsent. Genitalia were not examined. An abbreviated skin exam was performed. This includes: Specific skin findings: 1.7 mm dark brown macule with irregularities under dermatoscope on the right upper arm 2.crusted red papules on lateral aspect of left buttock 3. 0.2-0.3cm scaly irregular pink papules-left forehead,left upper lip,right inner canthus. Diagnosis/Assessment/Treatment Plan: 1.atyical nevus r/o Malignant melanoma Procedure: Skin biopsy. Location: right upper arm Discussed indications for procedure and expectations including risks and benefits. Verbal consent obtained. Skin prep with alcohol. Local anesthesia with 1% xylocaine, 1/100,000 epinephrine, 0.1 mEq/mL bicarbonate. A sample of the lesion was removed by shave technique to the level of the dermis andsubmitted to Pathology. Hemostasis obtained (AlCl and/or electrocautery). There were no complications; the pt. tolerated the procedure well. The wound was dressed. Post-procedure expectations, wound care and activity restrictions were reviewed. Follow-up based on pathology results. 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 Prescription given that can be taken for intermittent recurrences. Prescriptions: valtrex 500mg BID x 3 days at first signs of an outbreak. 3.actinic keratosis-Procedure(s): Destruction of lesion(s) with cryotherapy. Number:3 Location: as above Discussed procedure and expectations including risks (including risk of hypopigmentation) and benefits. Verbal consent obtained. Frozen with LN2, 15-30 second thaw time, TWICE. There were no complications; the patient tolerated the procedure well. Post-procedure expectations and wound care were reviewed. Follow-up: RTC in 1 year, sooner pending pathology. Instructed to call for questions or concerns. Jessenia Donovan MD Resident in Dermatology [facility] Patient seen and evaluated with staff mincemeat maker: Pricsa Brantley MD Section of Dermatology [facility] documented in this encounter Plan of Treatment Scheduled Orders Name Type Priority Associated Diagnoses Orde r Schedule Skin Biopsy Dermatology Routine Neoplasm of unspecified nature of bone, soft tissue, and skin Ordered: 01/17/2012 documented as of this encounter Procedures Procedure Name Priority Date/Time Associated Diagnosis Comments SURGICAL PATHOLOGY REPORT Routine 01/17/2012 6:35 PM EST SPECIMEN TO PATHOLOGY (NON-OR) Routine 01/17/2012 4:39 PM EST Neoplasm of unspecified nature of bone, soft tissue, and skin documented in this encounter Results * Surgical Pathology Report (01/17/2012 6:35 PM EST) Surgical Pathology Report ? [facility] ? Provider: ?? ZION, ? Pt. Name: ?? LALY, NELSY F ?JESSENIA Hightower ? Acc #: ?[id number] ? Pt. ? Col Date: ?? 01/17/2012 ?/Sex: ?1935,(76 years),Female ? Rec Date: ?? 01/17/2012 ?LOC: ?[facility] ? SURGICAL PATHOLOGY ? ---Pathologic Diagnosis--- ? Skin, right upper arm, shave biopsy: ? Lentiginous compound dysplastic nevus with moderate atypia, margins ? appear negative in the plane of sections examined. ? CR-0 ? Dictated by: ??Flower Darnell MD ? Dermatopathology Fellow ? As the attending physician, I attest that I examined the histologic slides, ? and confirm Dr. Flower Darnell's diagnosis. ? 01/18/12 ? VMS ? 01/20/12 Verified by: ? Syed Kenney MD ? Dermatopathologist ? (Electronic Signature) ? The attending pathologist whose signature appears on this report has ? reviewed all diagnostic slides and has edited the gross and/or ? microscopic portion of the report in rendering the final pathologic ? diagnosis. ? ---Microscopic Description--- ? Slides reviewed, microscopic description not recorded. ? ---Gross Description--- ? Labeled/Fixative: ? Labeled with the patient's name, formalin. ? Qty/Size/Weight: ?Single shave, 0.7 cm, white with a 0.6-cm ? dark brown macule. ? Sections/Processing: ??Inked. ??Trisected. ??(T1) vms/SNS ? ---Clinical Information--- ? Specimen Submitted: ? A - Skin, right upper arm, shave biopsy (1) ? Clinical History/Diagnosis: ? 7-mm dark brown irregularities under dermoscopy / atypical rule out MM CERNER SAHILIUM 01/17/2012 6:35 PM EST Jessenia Hightower MD PATHOLOGY/CYT OLOGY ORDERABLES Performing Organization Address City/[facility] Co de Phone Number MAO MARTÍNEZ * Specimen to Pathology (NON-OR) (01/17/2012 4:39 PM EST) AP Specimen 01/17/2012 4:39 PM EST 01/17/2012 4:39 PM EST Narrative MAO BAXTERIUM - 01/17/2012 4:39 PM EST Specimen requisition ordered. ??Separate Pathology report to follow Prisca Brantley MD PATHOLOGY/CYTOLOGY O RDERABLES MAO MARTÍNEZ documented in this encounter Visit Diagnoses Diagnosis Neoplasm of unspecified nature of bone, soft tissue, and skin- Primary Herpes infection Herpes simplex without mention of complication Actinic keratosis documented in this encounter Care Teams Industrial Maintenance Repairer Helper Relationship Specialty Start Date End Date Estee Novak APRN PCP - General 01/09/10 10/12/14 documented as of this encounter
--- OUTSIDE RECORDS SUMMARY | 2023-10-08 23:31 | XMS_ITS | Encounter Summary ---
Author Organization [facility] [place] [address] Care Team Providers Care Learning Program Manager Name Role Phone [place], Estee Andino APRN Primary Care Provider [phone] Reason for Visit * Reason Comments Skin Check Encounter Details Date Type Department Care Team (Late st Contact Info) Description 02/01/2014 8:00 AM EST Office Visit Dermatology at [facility] [address] [place] [address] Noble Moseley MD [address] [facility] [place] [address] History of SCC (squamous cell carcinoma) of skin; Solar lentigo Discharge Disposition: Home Social History Tobacco Use [...] this encounter Patient Instructions * Patient Instructions* Mary Salgado LPN - 02/01/2014 8:07 AM EST Images from the original note were not included. [facility] Actinic Keratosis: After Your Visit Your Care Instructions Actinic keratosis is a condition that develops in sun-exposed skin. It is not skin cancer, but it can turn into skin cancer if it is not removed. Actinic keratoses, also called solar keratoses, are small red, brown, or skin-colored scaly patches. They are most common on the face, neck, hands, and forearms. Your doctor can remove these growths by freezing or scraping them off or by putting medicines on them. Follow-up care is a aquino part of your treatment and safety. Be sure to make and go to all appointments, and call your doctor if you are having problems. It's also a good idea to know your test resultsand keep a list of the medicines you take. How can you care for yourself at home? ?? If your doctor removes the growth, clean the area with soap and water 2 times a day unless your doctor gives you different instructions. Don't use hydrogen peroxide or alcohol, which can slow healing. ?? You may cover the wound with a thin layer of petroleum jelly, such as Vaseline, and a nonstick bandage. To prevent actinic keratosis ?? Always wear sunscreen on exposed skin. Make sure the sunscreen blocks ultraviolet rays (both UVAand UVB) and has a sun protection factor (SPF) of at least 15. Use it every day, even when it is cloudy. Some doctors may recommend a higher SPF, such as 30. ?? Wear long sleeves, a hat, and pants if you are going to be outdoors for a long time. ?? Avoid the sun between 10 a.m. and 4 p.m., the peak time for UV rays. ?? Do not use tanning booths or sunlamps. When should you call for help? Watch closely for changes in your health, and be sure to contact your doctor if: ?? The areas that were treated are red, drain pus, or have red streaks leading from them. ?? You see other growths that do not go away. ?? You do not get better as expected. Where can you learn more? Visit our health information library at [email or web address] You can also view health information on [employer], your personal patient account. Log in or sign up today. Enter L364 in the search box to learn more about Actinic Keratosis: After Your Visit. ?? [id number] [employer]. Care instructions adapted under license by [facility]. This care instruction is for use with your licensed healthcare professional. If you have questions about a medical condition or this instruction, always ask your healthcare professional. [employer] disclaims any warranty or liability for your use of this information. Content Version: 9.9.604796; Last Revised: March 31, 2012 documented in this encounter Progress Notes * Noble Moseley MD - 02/01/2014 8:22 AM EST Problem: 1. Six-month skin checkup. 2. 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 Abby follows up and is doing well. She returns for a repeat check of her forehead. Physical examination shows excellent healing, no remaining erythema at the treatment site. She has some small skin tags present that are irritated on the submammary chest. She has four solar lentigos on her cheeks, a small seborrheic keratosis on the right lateral cheek. But careful examination of the head and the neck, the chest, the back, hands, arms, forearms, thighs, and calves is otherwise benign. Assessment and Plan: 1. History of Radford's disease, left forehead. a. No evidence of recurrence. b. Patient reassured. 2. Solar lentigos. a. Patient reassured. b. LN2 times one applied lightly to these. 3. Irritated tags, submammary breast. a. Because these are often rubbed and irritated, LN2 times two applied to the sites. b. Recommended baby powder or cornstarch for mild itching and irritation that she develops here occasionally. Also recommended the option of hydrocortisone cream. Return to clinic here another year for repeat check. COPY: Estee Novak N.P. documented in this encounter Plan of Treatment Not on file documented as of this encounter Visit Diagnoses Diagnosis History of SCC (squamous cell carcinoma) of skin Personal history of other malignant neoplasm of skin Solar lentigo Other dyschromia documented in this encounter Care Teams Learning Program Manager Relationship Specialty Start Date End Date Estee Novak APRN PCP - General 01/09/10 10/12/14 documented as of this encounter
--- OUTSIDE RECORDS SUMMARY | 2023-10-08 23:31 | XMS_ITS | Encounter Summary ---
Author Organization [facility] [place] [address] Care Team Providers Care Clin Asst Name Role Phone Estee Stinson APRN Primary Care Provider [phone] Reason for Visit * Reason Comments Follow-up Encounter Details Date Type Department Care Team (Late st Contact Info) Description 04/05/2011 11:30 AM EST Follow-Up Hematology [place] [id number] Audra Fields MD [facility] DR HEMATOLOGY [place] [address] Pulmonary embolism (Primary Dx) Discharge Disposition: Home Social History Tobacco Use [...] Sign Reading Time Taken Comments Blood Pressure 140/60 04/05/2011 11:36 AM EST Pulse 77 04/05/2011 11:36 AM EST Temperature 36.6 ??C (97.9 ??F) 04/05/2011 11:[address] Respiratory Rate - - Oxygen Saturation 97% 04/05/2011 11:36 AM EST Inhaled Oxygen Concentration - - Weight 68.5 kg (151 lb 0.2 oz) 04/05/2011 11:36 AM EST Height 154.9 cm (5' 1) 04/05/2011 11:36 AM EST Body Mass Index 28.53 04/05/2011 11:36 AM EST documented in this encounter Progress Notes * Audra Fields MD - 04/05/2011 12:51 PM EST [facility] Department [place] [address] [facility] THROMBOSIS FOLLOW UP DATE OF VISIT 04/05/2011 Patient Abby Ruffin 1935 REFERRING PHYSICIAN ESTEE STINSON APRN PRIMARY CARE PHYSICIAN ESTEE STINSON APRN REASON FOR CONSULTATION Evaluation for thrombophilia THROMBOSIS PROBLEM LIST Venous thromboembolism, 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 Abby was sitting in her car one day in June 2010 talking on the phone when she developed sudden onset of right flank pain. She took advil without relief and presented to the [facility] ER as the pain worsened. The pain was described as sharp and stabbing, like a knife, and was not associated with respiratory symptoms including shortness of breath and no cold or flu-like symptoms. A CTPA at [facility] showed a segmental PE involving the right lower lobe and she was transferred to [facility] for further treatment and evaluation. Shewas initially treated with IV unfractionated heparin and transitioned to enoxaparin as a bridge to warfarin and remained on warfarin until early January (~6 months). No lower extremity duplex studies were performed as she was without leg symptoms at the time. She does report, however, having intermittent calf cramping in the left leg. This is Abby's first episode of VTE and there is no family history of VTE. She has no history ofpregnancy complications. She can think of no triggering events including no injury, immobilization,trauma or extended travel. She was not using hormone replacement therapy and has no cancer or inflammatory disorders that she knows of. She has had a colonoscopy which showed diverticulosis. She has few in the way of thrombosis risk factors. Abby did well with warfarin and had no bleeding complications. She reports that her INR was fairly easily regulated, but reports that she had her INR monitored weekly. She has had intermittent small jabs of pain since the original episode but these have abated. She continues to have no respiratory symptoms and remains physically active. She has occasional cramping in her left leg but no significant swelling. Of note, she fractured that leg many years ago and has hardware remaining from the knee down. As part of the evaluation for the PE she underwent a TTE which showed a small pericardial effusion but no structural heart disease, intracardiac clot and no RV strain. In addition, an ambulatory heart monitor showed no dysrhythmias including atrial fibrillation. In the office today she reports feeling well. She is an active person with few in the way of medical problems. She has hyperlipidemia but has stopped taking atorvastatin because of myalgias. She has GERD but has stopped her PPIin favor of sauerkraut juice, which she has found to be remarkably effective. She continues to takeher antihypertensive medications as prescribed. She was taking low dose daily aspirin prior to the PE but has not resumed it since stopping warfarin. She was seen in the [facility] ER about a week ago withsudden onset of double vision that was judged to be due to a 6th nerve palsy (a noncontrast head CTwas negative for gross abnormalities), and this was addressed with a special lens on the right sideof her eyeglasses. Since I saw her last she has done well. She has obtained [id number] compression stockings and finds them very comfortable to wear. She has had no leg pain or swelling and no shortness of breath or chest pain. She has restarted low dose daily aspirin. PAST MEDICAL HISTORY 1. Venous thromboembolism, 06/2010 as above 2. Left leg fracture Rx ORIF 3. Hypertension 4. Hyperlipidemia 5. 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 ORIF, left leg 2. Appendectomy OBSTETRIC HISTORY ; one elective termination MEDICATIONS Current outpatient prescriptions ordered prior to encounter Medication Sig Dispense Refill ??? amlodipine (NORVASC) 5 mg tablet Take 5 mg by mouth daily. ??? omeprazole (PRILOSEC) 20 mg capsule Take 20 mg by mouth daily. ??? ibuprofen (ADVIL;MOTRIN) 400 mg tablet Take 400 mg by mouth every 6 hours as needed. ??? irbesartan-hydrochlorothiazide (AVALIDE) 150-12.5 mg per tablet Take 1 tablet by mouth daily. ADVERSE DRUG REACTIONS Allergies as of 04/05/2011 - Review Complete 04/05/2011 Allergen Reaction Noted ??? 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 -- [employer] One daughter age 54, two granddaughters Remote history of tobacco use Enjoys occasional wine REVIEW OF SYSTEMS Fevers/chills/sweats No Recent infections No Unexplained weight loss No Headache/lightheadedness/syncope No Sinus pain/pressure No Oral sores/lesions/bleeding No Sore throat/dysphagia No Nosebleeds No Cough/SOB/chest pain/heart racing No Nausea/vomiting/dyspepsia No Abdominal pain No Diarrhea/constipation No Urinary pain, burning, incontinence No Hematuria No Vaginal discharge/bleeding No Skin rashes/ulcers No Back/joint pain/swelling No Leg swelling/pain/redness Occasional left leg cramps Bruising/petechiae/bleeding/melena No Sensory/motor No Polydipsia/polyuria/heat/cold intol No Lumps/bumps/swollen glands No Other Diplopia PHYSICAL EXAMINATION Filed Vitals: 04/05/11 1136 BP: 140/60 Pulse: 77 Temp: 36.6 ??C (97.9 ??F) Body mass index is 28.53 kg/(m^2). GENERAL: Well-appearing, articulate white female. HEENT: Oropharynx clear. NECK: Supple. BREASTS: Exam deferred. CHEST: Normal respiratory excursion. HEART: Regular rate and rhythm ABDOMEN: Benign GENITOURINARY: Exam deferred. EXTREMITIES: Compression stockings in place. No edema. MUSCULOSKELETAL: No acutely inflamed joints. SKIN: No ecchymoses, petechiae, ulcers or rashes. NEUROLOGIC: Alert, oriented. Speech clear, coherent. No focal deficits noted. PSYCHIATRIC: Appropriate affect, no apparent distress. LABORATORY STUDIES Results for ABBY RUFFIN ( ) as of 04/05/2011 12:37 Ref. Range 03/18/2011 Platelets Latest Range: 145-370 x10(3)/mcL 288 PT Latest Range: 12.3-14.7 sec 12.9 INR Latest Range: 0.9-1.1 0.9 PTT Latest Range: 25-35 sec 25 Fibrinogen Latest Range: 200-470 mg/dL 327 Thrombin Time Latest Range: 15-20 sec 16 D-Dimer, Quant Latest Range: 0-500 FEU ng/ml 201 Lupus Anticoag Latest Range: Neg Neg APC Resistance Latest Range: >=2.00 2.45 Antithrombin Latest Range: 80-120 % 128 Protein C Act Latest Range: 67-156 % activity 200 Protein S Act Latest Range: 65-123 % activity 134 Homocyst Tot Latest Range: 5-12 mcmol/L 9 B2GPI IgG Latest Range: <=20 unit(s) <21 B2GPI IgM Latest Range: <=20 unit(s) <21 Cardiolipin IgG Latest Range: <=22 GPL unit(s) <23 Cardiolipin IgM Latest Range: <=10 MPL unit(s) <11 Prothrombin Mutation No range found Negative RADIOGRAPHIC STUDIES Reviewed above. IMPRESSION Abby Ruffin is a 75 y.o. woman with what appears to have been an idiopathic pulmonary embolism. She has no evidence for hereditary or acquired thrombophilia, and the low D-dimer level places her in a relatively low risk category for VTE recurrence without provocation. Accordingly, I think it is reasonable for her to continue off warfarin in favor of episodic pharmacologic thromboprophylaxis around periods of temporarily increased VTE risk. PLAN/RECOMMENDATIONS I reviewed the test results and their implications with Adriana. I once again explained the concept of an idiopathic (unprovoked) episode of VTE and that up to a third of VTE episodes are unprovoked and unexplained. I explained that although we may never understand specifically what triggered her PE, we can better understand her recurrence risk with laboratory testing. We reviewed the use of post-anticoagulation D-dimer levels to stratify her recurrence risk and the salutary implications of her low post-anticoagulation D- dimer level (i.e., a relatively low risk for recurrence (5% to 7%) over the two years after stopping warfarin). Given the low D-dimer level now that she's been off anticoagulation for >4 weeks, the risk/benefit calculation likely favors remaining off chronic anticoagulation in favor of episodic thromboprophylaxis around temporary periods of increased VTE risk. We discussed the fact that although she currently has no absolute indication for chronic ongoing anticoagulation, it would nevertheless be prudent to administer thromboprophylaxis around temporary periods of high risk such as major surgery, trauma, immobilization or hospitalization. In the absence of a contraindication to anticoagulation, pharmacologic thromboprophylaxis is generally recommended ( i.e., with heparin, low molecular weight heparin, vitamin K antagonists or one of the new oral anticoagulants) rather than insertion of a prophylactic IVC filter, which itself is prone to clotting and other complications. I let her know that I would be happy to help out with specific recommendations should the need arise and that, in particular, she should call our office in advance of any elective surgery so that we may provide a thromboprophylaxis plan. I reviewed preventive strategies for DVT and PE including maintaining a healthy weight, maintaininga good activity level and avoiding dehydration. I reminded her that although her risk for a recurrent event is relatively low it is not zero, and I reviewed the signs and symptoms of DVT and PE and reminded her to seek medical attention expeditiously should they occur. I reviewed the use of compression stockings recommended that she continue to wear her stockings to help control edema and to helpprevent DVT, especially during travel. Finally, we reviewed the role of aspirin for venous thromboprophylaxis. There is some evidence thataspirin is helpful for secondary venous thromboprophylaxis, but it is unequivocally beneficial for preventing arterial thrombosis. Given her age, she may benefit from low dose daily aspirin at least for coronary thromboprophylaxis and possibly for secondary VTE prophylaxis and I recommended that she continue it at a dose of 81 mg daily. In summary: ?? No ongoing anticoagulation ?? Aggressive thromboprophylaxis around temporary periods of increased VTE risk ?? Low dose daily aspirin ?? Compression stockings ?? Seek medical attention in the event of VTE symptoms Abby Ruffin had the opportunity to ask questions and indicated that all her questions were answered to her satisfaction. While I won't plan to see her back routinely I will be happy to see her back at any time as appropriate and would especially welcome the opportunity to help with thromboprophylaxis recommendations during temporary periods of high risk should the need arise. Audra Fields MD Supervisor [facility] documented in this encounter Plan of Treatment Not on file documented as of this encounter Visit Diagnoses Diagnosis Pulmonary embolism- Primary Other pulmonary embolism and infarction documented in this encounter Care Teams Clin Asst Relationship Specialty Start Date End Date Estee Stinson APRN PCP - General 01/09/10 10/12/14 documented as of this encounter
--- OUTSIDE RECORDS SUMMARY | 2023-10-08 23:31 | XMS_ITS | Encounter Summary ---
Author Organization [facility] [place] [address] Care Team Providers Care Sock Turner Name Role Phone Judith Basin, Estee Andnio APRN Primary Care Provider [phone] Reason for Visit * Reason Comments Preoperative Cardiovascular Encounter Details Date Type Department Care Team (Late st Contact Info) Description 01/14/2011 3:30 PM EST Office Visit Cardiology at [address] [phone] George Jalloh MD [facility] [place] [address] Palpitations (Primary Dx) Discharge Disposition: Home Social History [...] Sign Reading Time Taken Comments Blood Pressure 130/80 01/14/2011 2:48 PM EST Pulse 68 01/14/2011 2:48 PM EST Temperature - - Respiratory Rate - - Oxygen Saturation 96% 01/14/2011 2:48 PM EST Inhaled Oxygen Concentration - - Weight 68.9 kg (152 lb) 01/14/2011 2:48 PM EST Height 157.5 cm (5' 2) 01/14/2011 2:48 PM EST Body Mass Index 27.8 01/14/2011 2:48 PM EST documented in this encounter Progress Notes * Sarah Morales LPN - 01/14/2011 4:51 PM EST EVENT MONITOR NOTE Seen for instruction using a [employer] 7 day cardiac transient arrythmia monitor, ordered by . Indication ,Atrial fib.. Basline strip obtained was not needed. Patient appeared to receive andunderstand instruction without difficulty. When monitor is returned, copies of the report will be sent to ordering MD and a copy to medical record. * George Jalloh MD - 01/14/2011 4:36 PM EST Cardiology Staff Note: This 75 y.o. year-old patient was seen today with Dr. Simon Kevin and was personally interviewed and examined. Agree with documentation. Appropriate data, including labs, ECGs and other diagnostic studies were independently reviewed. Briefly, this is a 75-year-old woman who apparently experienced a pulmonary embolism about 6 monthsago. She is otherwise active and healthy. At the time of her diagnosis which was made by means of aCT scan, she had a small pericardial effusion without tamponade. She has been treated with Coumadinfor the last 6 months and had no problems. Holter monitor was done a few days ago and showed no atrial fibrillation. She reports occasional palpitations at night, often associated with some reflux symptoms. BP 130/80 Pulse 68 Ht 157.5 cm (5' 2) Wt 68.947 kg (152 lb) BMI 27.80 kg/m2 SpO2 96% Examination: Her physical examination is relatively unremarkable. She has flat neck veins, clear lungs, and a normal cardiac examination. Assessment: The exact etiology of her pulmonary Viola and remains unclear. Although a cardiac etiology is possible, this would infer an atrial arrhythmia such as atrial fibrillation or flutter withatrial thrombus formation and subsequent embolization, which is relatively unlikely. It seems like a venous source such as a DVT is more likely. It is unclear from her history whether she ever underwent screening with a venous study at the time of her diagnosis. Her recalls that she spent alot of time seated in a chair (potential for hours) doing some work on the day of the pulmonary embolism. Plan: 1. Zio patch to be applied today to screen her to more prolonged way to rule out occult atrial fibrillation 2. Given the lack of symptoms and excellent functional status and normal physical examination, I have no reason to suspect any worsening of her pericardial effusion and do not see the need for a followup echocardiogram 3. Further plans and recommendations pending the results of her Zio patch * Simon Kevin - 01/14/2011 3:30 PM EST Cardiology Consult Referring: Estee Novak Reason for Consult: Palpitations and question of a possible cardiac source of pulmonary embolism Presenting Illness: Mrs. Ruffin suffered a PE in 06/2009. There was no obvious etiology for this.She was recommended 6 months of anticoagulation with coumadin, following which she will be evaluated by hematology for a possible hypercoagulable state. At the time of diagnosis of PE she underwent an echocardiogram (TTE) which showed a small to moderate pericardial effusion and other mejía unremarkable study. She does report history of palpitations at night with acid reflux which resolve with belching and burping. These symptoms are not related to exertion and are otherwise asymptomatic. She has experienced these for several years. She is now in cardiology clinic for possible cardiac thromboembolic source. She has recently undergone a 24 hour holter which showed 2 epsiodes of SVT which were asymptomatic. ROS: General: No recent weight changes, no change in sleep/ appetite, no fevers/chills ENT: no tinnitus,vertigo,dizziness CVS: as in HPI PULM: no cough,wheeze GI: no N,V,D,hematochezia,melena [employer]: no syncope,focal weakness,paresthesias PMH: HTN Hyperlipidemia Pulmonary embolism Meds: Reviewed SH: 2 pack years of smoking Alcohol 3-4 times per week Lives at home with FH: Non-contibutory Filed Vitals: 01/14/11 1448 BP: 130/80 Pulse: 68 Height: 157.5 cm (5' 2) Weight: 68.947 kg (152 lb) SpO2: 96% General: Pt is alert and oriented x3, mm pink and moist, well nourished, Anicteric, Acyanotic and Afebrile HEENT: Normocephalic/atraumatic, PERRL, EOMI Neck: Supple with no JVD, carotid bruit, thyromegaly Respiratory: Good air entry bilaterally, No crackles, No wheezes Cardiac: Normal S1, S2, No S3 or S4. No Murmur, no gallops/rubs, regular rhythm Abdominal: Soft and non-tender with no organomegaly. Normal bowel sounds Extremities: No atrophy, no clubbing/cyanosis, edema, Psychiatric: Normal affect Echo: 06/21/2010 SUMMARY: 1. Left ventricular chamber size, wall [...] There is no echo evidence of pericardial tamponade Assessment and Recommendations: 75 year old woman with history of PE and history of palpitations. It is highly unlikely that she has underlying Paroxysmal A-fib, which may have been the source of a paradoxical embolus, especially in light of her normal echo. Se did have a pericardial effusion without any hemodynamic effects and was most likely related to her PE. We will go ahead and arrange for a 30 day event monitor (ziopatch) to evaluate for possible A-fib. If she is demonstrated to have A-fib she may benefit from residential anticoagulation. At this time there is no indication to repeat an an echocardiogram, but can be obtained should she develop any new symptoms. At the present time there is no cardiac etiology to cause a pulmonary embolism, neither is there any cardiac indication for anticoagulation. Subjective: Patient ID: [id number] Review of Systems Objective: Physical Exam Assessment and Plan: documented in this encounter Plan of Treatment Not on file documented as of this encounter Results * ZIOPATCH (01/14/2011 4:33 [...] documented in this encounter Visit Diagnoses Diagnosis Palpitations- Primary Palpitations documented in this encounter Care Teams Sock Turner Relationship Specialty Start Date End Date Estee Novak APRN PCP - General 01/09/10 10/12/14 documented as of this encounter
--- OUTSIDE RECORDS SUMMARY | 2023-10-08 23:31 | XMS_ITS | Encounter Summary ---
Author Organization [facility] [address] Care Team Providers Care Bid Manager Name Role Phone Candie Skaggs MD Primary Care Provider [phone] Encounter Details Date Type Department Care Team (Latest Contact Info) Description 07/05/2021 10:45 AM EDT Office Visit Hematology [place] [id number] Audra Fields MD [facility] [address] [place] [address] Other pulmonary embolism without acute cor pulmonale, unspecified chronicity; Anticoagulated by anticoagulation treatment Social History Tobacco Use Types Packs/Day Years [...] Sign Reading Time Taken Comments Blood Pressure 140/74 07/05/2021 11:00 AM EDT Pulse 60 07/05/2021 11:00 AM EDT Temperature 36.2 ??C (97.2 ??F) 07/05/2021 11:00 AM E DT Respiratory Rate 18 07/05/2021 11:00 AM EDT Oxygen Saturation 99% 07/05/2021 11:00 AM EDT Inhaled Oxygen Concentration - - Weight 67 kg (147 lb 9.6 oz) 07/05/2021 11:00 AM EDT Height 156.5 cm (5' 1.61) 07/05/2021 11:00 AM E DT Body Mass Index 27.34 07/05/2021 11:00 AM EDT documented in this encounter Progress Notes * Audra Fields MD - 07/05/2021 10:45 AM EDT Images from the original note were not included. THROMBOSIS CONSULTATION DATE OF VISIT 07/05/2021 Patient Abby Ruffin 1935 REFERRING PHYSICIAN Daniel Larsen MD PRIMARY CARE PHYSICIAN Candie Skaggs MD REASON FOR CONSULTATION Anticoagulation recommendations HISTORY OF THE PRESENT ILLNESS Abby Ruffin is a 85 y.o. woman with an unprovoked PE, who is seen in consultation at the request of Daniel Larsen MD for anticoagulation recommendations. I've seen Abby previously in 2011 for evaluation for thrombophilia after she sustained a segmental PE involving the right lower lobe. No lower extremity duplex studies were performed as she was without leg symptoms at the time. She wastreated with heparin/enoxaparin as a bridge to warfarin and completed a 6-month course of anticoagulation. A post-treatment D-dimer suggested a low risk for recurrence, and low dose daily aspirin wasinstituted rather than continue anticoagulation. Thrombophilia screening was negative. Abby did well off anticoagulation for a decade until June 2020, three weeks after receiving a J&J COVID19 vaccination. She presented with chest pain and dyspnea that, in retrospect, she thinks may have begun before the vaccination. Evaluation in the ER included a CT angiogram that showed segmental pulmonary emboli in the right middle and lower and left upper and lower lobes without radiographic evidence for right heart strain. An EKG showed mild sinus bradycardia but was otherwise unremarkable. She reported no leg symptoms, and no venous duplex studies were done. She was anticoagulated initially with enoxaparin as a bridge to warfarin but at some point was switched to rivaroxaban which continues to current day. She was recently switched from 20 mg once daily to 10 mg once daily. Eldiahas subsequently gone on to receive a second J&J vaccine and a Moderna booster without adverse effect. In the office today she reports feeling well. Her pulmonary symptoms and chest pain have resolved and she has returned to full activity. She has had no bleeding complications with rivaroxaban and themedication is affordable through her community pharmacy. She is not averse to continuing for the halfway. Her main issue recently has been abdominal pain due to gas, relieved by burping. She was started on an H2 pasquale with significant (though incomplete) relief. She recently underwent a nuclearcardiac stress test and is awaiting the results of that. 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 She remains physically active, walking regularly for exercise. She stopped taking low dose aspirin when the anticoagulant was started. PAST MEDICAL HISTORY 1. Venous thromboembolism, as above 06/2010: RLL segmental PE Rx heparin, enoxaparin --> warfarin x 6 months Unprovoked, negative thrombophilia evaluation 06/2020: Bilateral PE Rx rivaroxaban to current day Unprovoked (vs vaccine-associated) 2. Left leg fracture Rx ORIF 3. Hypertension 4. Hyperlipidemia 5. 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 Squamous cell cancer, skin OPERATIVE PROCEDURES 1. ORIF, left leg 2. Appendectomy 3. Excision squamous cell cancer, skin OBSTETRIC HISTORY ; one elective termination MEDICATIONS Current Outpatient Medications on File Prior to Visit Medication Sig Dispense Refill ??? LOSARTAN-HYDROCHLOROTHIAZIDE ORAL Take by mouth. ??? rivaroxaban (Xarelto) 10 mg Tablet Take 10 mg by mouth daily. ??? predniSONE (Deltasone) 1 mg Tablet Take 2 mg by mouth daily. ??? famotidine (Pepcid) 40 mg Tablet Take 40 mg by mouth 2 times daily. ??? [DISCONTINUED] LORazepam (ATIVAN) 0.5 mg Tablet Take 0.5 mg by mouth every 6 hours as needed for Anxiety. ??? [DISCONTINUED] aspirin 81 mg Tablet, Delayed Release (E.C.) Take 81 mg by mouth daily. ??? [DISCONTINUED] cyanocobalamin 500 mcg Tablet Take 500 mcg by mouth daily. ??? [DISCONTINUED] valACYclovir (VALTREX) 500 mg tablet Take 1 tablet by mouth 2 times daily. One tab twice daily for three days of each outbreak (Patient not taking: No sig reported) 6 tablet 4 ??? [DISCONTINUED] omeprazole (PRILOSEC) 20 mg capsule Take 20 mg by mouth daily. ??? [DISCONTINUED] ibuprofen (ADVIL;MOTRIN) 400 mg tablet Take 400 mg by mouth every 6 hours as needed. ??? [DISCONTINUED] irbesartan-hydrochlorothiazide (AVALIDE) 150-12.5 mg Tablet Take 1 tablet by mouth daily. No current facility-administered medications on file prior to visit. ADVERSE DRUG REACTIONS Allergies as of 07/05/2021 - Review Complete 07/05/2021 Allergen Reaction Noted ??? Codeine phosphate Nausea And Vomiting FAMILY HISTORY Mother at age 92 of pneumonia Father at age 78 of complications associated with obesity, smoking One sister of complications of breast cancer No VTE SOCIAL HISTORY Originally from [place] Moved to [place], then [place] with first Currently lives with second Geovanni who is ~20 years younger Has business -- [employer] One daughter age 64, two granddaughters Remote history of tobacco use Enjoys occasional wine REVIEW OF SYSTEMS Fevers/chills/sweats No Recent infections No Unexplained weight loss No Headache/lightheadedness/syncope No Sinus pain/pressure No Oral sores/lesions/bleeding No Sore throat/dysphagia No Nosebleeds No Cough/SOB/chest pain/heart racing No Nausea/vomiting/dyspepsia See above Abdominal pain No Diarrhea/constipation No Urinary pain, burning, incontinence No Hematuria No Vaginal discharge/bleeding No Skin rashes/ulcers No Back/joint pain/swelling No Leg swelling/pain/redness Occasional left leg cramps Bruising/petechiae/bleeding/melena No Sensory/motor No Polydipsia/polyuria/heat/cold intol No Lumps/bumps/swollen glands No Other Diplopia PHYSICAL EXAMINATION BP 140/74 (Patient Position: Other (see comment)) Pulse 60 Temp 36.2 ??C (97.2 ??F) (Tympanic) Resp 18 Ht 156.5 cm (5' 1.61) Wt 67 kg (147 lb 9.6 oz) SpO2 99% BMI 27.34 kg/m?? GENERAL: Well-appearing, articulate white female. HEENT: Oropharynx clear; no mucosal lesions, petechiae, bleeding, thrush or ulcers. NECK: Supple; no cervical, supraclavicular or submental adenopathy. BREASTS: Exam deferred. CHEST: Clear to auscultation/percussion. No rales, rhonchi, wheezes. HEART: Regular rate and rhythm; no murmur, rub, gallop ABDOMEN: Soft, non-tender, no hepatosplenomegaly. GENITOURINARY: Exam deferred. EXTREMITIES: No pedal edema with a few dilated capillaries about the anterior and lateral surface of the left foot. Hardware palpable over the lateral aspect. No erythema, tenderness or palpable cords. No venous varicosities. No skin discoloration or hemosiderin deposits. Peripheral pulses palpable. MUSCULOSKELETAL: Spine nontender. Full ROM all joints. No acutely inflamed joints. SKIN: No ecchymoses, petechiae, ulcers or rashes. LYMPH: No palpable lymph nodes. NEUROLOGIC: Alert, oriented. Speech clear, coherent. No focal deficits noted. PSYCHIATRIC: Appropriate affect, no apparent distress. LABORATORY STUDIES From 06-22-2020 [facility] (scanned in [facility]) Unremarkable CBC BUN/CR /.1 Normal LFTs RADIOGRAPHIC STUDIES Reviewed above. Reports scanned. IMPRESSION Abby Ruffin is a 85 y.o. 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 PLAN/RECOMMENDATIONS I reviewed my impression with Abby and Geovanni. I reviewed the difference between an unprovoked VTE event and one that may have been precipitated by temporary risk factors (e.g., surgery, trauma, travel, hospitalization, immobilization) and discussed the additive nature of factors such as hereditary or acquired thrombophilia (e.g., factor V Leiden, PT [id number]), ABO blood type (non-O > O), dehydration, obesity, smoking varicose veins, diabetes, cancer, hormone use. I explained that the risk for developing a recurrent VTE is higher when theoriginal event was unprovoked than when it was associated with identifiable risk factors that have subsequently been eliminated. I explained that current ACCP recommendations (2016) for individuals with a first unprovoked VTE are for 3-6 months of anticoagulation with consideration for continuing indefinitely if the benefit in terms of risk reduction outweighs the risk for complications of long-term anticoagulation. Indefinite anticoagulation would be more strongly recommended in the event of a second VTE episode, especially an unprovoked one, which she has now had. In her case, I can't say the J&J vaccine precipitated this event as she may have had symptoms prior to the shot. Moreover, this type of clotting event would be atypical for the J&J vaccine asthere is usually also associated thrombocytopenia (her platelet count was 272K/uL) and most frequently occurs in the cerebral venous circulation rather than in the lungs. I have to say, therefore, that her VTE event was essentially unprovoked, thus the risk for recurrence is up to 30% over the two years following discontinuation of anticoagulation. In addition to the unprovoked nature of the event her other clinically relevant risk factors for recurrence include her age and a prior history of VTE. In light of this, I think her recurrence risk is high enough and the consequences of recurrence p otentially severe enough that consideration for ongoing anticoagulation is in her best interest at this time. Anticoagulation reduces the risk for VTE recurrence to about 1% per year at the hazard ofa major bleeding risk that is also about 1% per year. I conceded that life-threatening bleeding is risk with anticoagulation but that the risk for this is currently outweighed by her risk for seriousthrombosis without anticoagulation. Given that she has tolerated rivaroxaban and that she has completed well over 6 months of anticoagulation, it is appropriate to lower the dose to 10 mg once daily which is the FDA-approved dose for halfway VTE prevention. 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 She is perfectly amenable tothat approach. The risk/benefit calculation for continuing with anticoagulation may mold changer time, however, and should be revisited periodically. The alternative is low dose daily aspirin (81 mg) but while aspirin is effective for arterial thromboprophylaxis, its value for venous thromboprophylaxis is limited and inferior to anticoagulation. I recommended that she not take low dose daily aspirin in addition to rivaroxaban, as its use concurrently with anticoagulation does not appear to add significant efficacy for primary or secondary prevention of either venous or arterial thrombosis but does add substantially to bleeding risk. I reassured her that occasional use (e.g., not more than once or twice per week) of NSAIDs for pain as needed should not pose undue bleeding risk, but I cautioned her against regular use. We reviewed the idea that should she require surgery or other invasive procedures, temporary interruption of rivaroxaban is recommended. She simply needs to hold the medication for 2-3 days prior to the procedure and restart after the procedure. I told her that I would be happy to help out with specific recommendations in the future if the issue comes up. Although the risk for a recurrent event on anticoagulation is low, it is not zero, and I reviewed signs and symptoms of DVT and PE and reminded her to seek medical attention expeditiously should theyoccur. No further thrombophilia screening is recommended. In summary: ?? Continue rivaroxaban for the halfway with periodic review of risk/benefit. ?? The 10 mg once daily dose is appropriate for rodent exterminator secondary prevention ?? Seek medical attention for new VTE symptoms ?? Hold rivaroxaban for 2-3 days prior to invasive procedures ?? No further thrombophilia testing at this time. ?? No concurrent aspirin. Judicious NSAID use Abby and Geovanni had the opportunity to ask questions and indicated that all their questions were answered to their satisfaction. While I won't plan to see her back routinely, I'll be happy to seeher back at any time in the future as appropriate and would especially welcome the opportunity to provide recommendations for anticoagulant management around invasive procedures should the need arise. Audra Fields MD [facility] documented in this encounter Plan of Treatment Not on file documented as of this encounter Visit Diagnoses Diagnosis Other pulmonary embolism without acute cor pulmonale, unspecified chronicity Anticoagulated by anticoagulation treatment Encounter for long-term (current) use of anticoagulants documented in this encounter Care Teams Bid Manager Relationship Specialty Start Date End Date Candie Skaggs MD [address] [place] [address] PCP - General Family Medicine 03/19/19 documented as of this encounter
--- OUTSIDE RECORDS SUMMARY | 2023-10-08 23:31 | XMS_ITS | Encounter Summary ---
Author Organization [facility] [place] [address] Care Team Providers Care Hr Shared Services Consultant Name Role Phone Estee Novak APRN Primary Care Provider [phone] Encounter Details Date Type Department Care Team (Late st Contact Info) Description 07/30/2013 2:50 PM EDT Office Visit Dermatology at [address] [phone] Noble Moseley MD [address] [facility] [place] [address] Squamous cell carcinoma (Primary Dx) Social History Tobacco Use Types Packs/Day Years [...] as of this encounter Progress Notes * Noble Moseley MD - 07/30/2013 3:25 PM EDT Problem: Left hoahaoism lesion. Abby is a 77-year-old woman who is referred today by Dr. 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 Apparently this was treated with LN2 about two years ago and did not resolve when she as down at [facility]. She has a history of a moderately atypical nevus of the right upper arm biopsied and removed in December of 2011. She has a history of recurrent HSV of the left buttock and takes Valtrex p.r.n. Her medications include a baby aspirin a day, lorazepam, HCTZ, Lipitor, and irbesartan. Physical examination reveals a pleasant 77-year-old woman who has a 1.3-cm scabbing crusting lesion on the left upper forehead, which is biopsy-proven Radford's disease. Assessment and Plan: Radford's disease. a. After obtaining informed consent site was anesthetized and removed with light C and D times three. b. Triple antibiotic ointment and Band-Aid placed. Wound care instructions and supplies given. Recommend I see the patient again in six months for repeat check. COPY: [email or web address]. documented in this encounter Plan of Treatment Not on file documented as of this encounter Visit Diagnoses Diagnosis Squamous cell carcinoma- Primary Other malignant neoplasm without specification of site documented in this encounter Care Teams Hr Shared Services Consultant Relationship Specialty Start Date End Date Estee Novak APRN PCP - General 01/09/10 10/12/14 documented as of this encounter
--- OUTSIDE RECORDS SUMMARY | 2023-10-08 23:31 | XMS_ITS | Encounter Summary ---
Author Organization [facility] [place] [address] Care Team Providers Care Regional Telecommunications Specialist Name Role Phone Candie Skaggs MD Primary Care Provider [phone] Reason for Referral * Consultation (Routine) - Closed Specialty Diagnoses / Procedures Referred By Contac t Referred To Contact [facility] Diagnoses Bilateral hip pain Radiculopathy of lumbar region Lower extremity pain, left Lower extremity pain, right spine- BLE pain/ XR h/p 04/04/22 in Rukhsana Berry PA [facility] [place] [address] [facility] [place] [address] Referral ID Status Reason Start Date Expiration Date V isits Requested Visits Authorized [id number] Closed Consult, Test & Treat 04/04/2022 04/04/2023 1 1 Reason for Visit * Reason Comments Establish Care BILATERAL HIP PAIN? * Consultation (Routine) - Closed Specialty Diagnoses / Procedures Referred By Contac t Referred To Contact Orthopaedics Diagnoses Bilateral hip pain Self mail [facility] [address] [place] [address] Referral ID Status Reason Start Date Expiration Date V isits Requested Visits Authorized [id number] Closed Consult, Test & Treat 03/07/2022 03/07/2023 1 1 Encounter Details Date Type Department Care Team (Late st Contact Info) Description 04/04/2022 4:00 PM EST Office [place] [address] Rukhsana Mills PA [facility] [place] [address] Bilateral hip pain (Primary Dx); Right hand pain; Radiculopathy of lumbar region; Lower extremity pain, left; Lower extremity pain, right Social History Tobacco Use Types Packs/Day Years [...] Pulse 72 04/04/2022 3:51 PM EST Temperature - - Respiratory Rate - - Oxygen Saturation - - Inhaled Oxygen Concentration - - Weight 65.8 kg (145 lb) 04/04/2022 3:51 PM EST Height 154.9 cm (5' 1) 04/04/2022 3:51 PM EST Body Mass Index 27.4 04/04/2022 3:51 PM EST documented in this encounter Progress Notes * Rukhsana Mills PA - 04/04/2022 4:00 PM EST PATIENT NAME: Abby Ruffin AGE: 86 y.o. MR#: [id number] DATE OF VISIT: 04/04/2022 CHIEF COMPLAINT: whole body pain HISTORY OF PRESENT ILLNESS: Ms. Ruffin is a 86 y.o. female who comes into clinic today for evaluation of the body. Family member, Geovanni, with her today. Has had 1 year of right leg shooting pain. With squatting, feel improvement of her symptoms. Now feels shooting pain down left leg which improves with squatting. Now has right hand pain. Has burning sensation of the entire both legs. Gets bilateral arm pain. Sometimes has hip pain that makes it hard to walk, but this pain comes and goes. Hip pain is all over including anterior, buttock, and lateral. Not necessarily groin pain. Right hand dominant. 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 Has shooting sensation right hand and shoulder. Right hand pain not associated with activity, just happens off and on. Localized to right fourth finger.Has chronic low back pain. Denies that the shooting sensation is sciatica which she says she has had before. No DM. On xaralto for unprovoked PE. Past medical history: Patient Active Problem List Diagnosis Date Noted ??? Gastroesophageal reflux disease without esophagitis 05/30/2021 ??? Epigastric pain 05/03/2017 ??? History of SCC (squamous cell carcinoma) of skin 02/01/2014 ??? Solar lentigo 02/01/2014 ??? Squamous cell carcinoma 07/30/2013 ??? Pulmonary embolism, unprovoked 06/21/2010 ??? Pericardial effusion 06/21/2010 ??? Hypertension ??? GERD (gastroesophageal reflux disease) ??? Hyperlipidemia Medications: ??? estradioL (ESTRACE) 0.01 % (0.1 mg/gram) Cream ??? hydroCHLOROthiazide (Hydrodiuril) 12.5 mg Tablet ??? latanoprost (Xalatan) 0.005 % Drops ??? losartan (COZAAR) 100 mg Tablet ??? NIFEdipine (Procardia) 10 mg Capsule ??? pantoprazole EC (Protonix) 40 mg Tablet, Delayed Release (E.C.) ??? potassium chloride (K-Tab) 20 mEq Tablet Sustained Release ??? valACYclovir (Valtrex) 1 gram Tablet ??? zolpidem (Ambien) 5 mg Tablet ??? rivaroxaban (Xarelto) 20 mg Tablet ??? predniSONE (Deltasone) 1 mg Tablet ??? rivaroxaban (Xarelto) 10 mg Tablet ??? predniSONE (Deltasone) 1 mg Tablet Allergies: Allergies Allergen Reactions ??? Codeine Phosphate Nausea And Vomiting Social history: Social History Tobacco Use ??? Smoking status: Former Packs/day: 0.50 Years: 3.00 Pack years: 1.50 Types: Cigarettes ??? Smokeless tobacco: Former Quit date: 06/22/1979 Substance Use Topics ??? Alcohol use: Yes Alcohol/week: 2.0 standard drinks Types: 2 Glasses of wine per week Review of systems: No chest pain or shortness of breath No fevers, night sweats or chills Vital signs: Patient Vitals for the past 24 hrs: Pulse BP 04/04/22 1551 72 163/73 Physical exam: Ms. Ruffin is a 86 y.o. female who is alert and oriented. She is in no acute discomfort and is resting comfortably in the exam room. No use of accessory muscles or retraction. Normal respiratory rate. No TTP right fourth finger at PIP or DIP joints No edema right hand Able to make a fist fully Able to wiggle all fingers Able to flex and extend wrist Skin intact TTP right GT which does not fully recreate her pain No TTP left GT Right hip flexion to 110 Left hip flexion to 110 Right hip IR to 15 Left hip IR to 15 Nonpainful bilateral FADIR Nonpainful bilateral RAYMOND Bilateral PT pulse 2+ Equal leg length Can active flex and extend bilateral knees Imaging studies: Xrays taken today demonstrate moderate narrowing of the bilateral hip joint space, about equal bilaterally. Subchondral sclerosis and osteophytes present, nikki. Inferiorly. Reviewed with Radhames. Assessment and plan:: 86 y.o. year-old female whole body pain, bilateral lower extremity radicular symptoms, right fourthfinger pain We had a long discussion regarding radicular symptoms of bilateral lower extremities. Discussed conservative treatment options. Discussed PT, spine team referral, tylenolNo NSAID d/t xaralto. Fourth finger pain which cannot be recreated on exam. Discussed conservative treatments of OT, activity natalio fication, topical NSAID. She would like a hand xray today. Xrays of pelvis show some degenerative change, but she denies groin pain and the exam and HPI is reassuring as far as pain from the IA hips. FU: Prn ortho Hand xray today Spine team referral Rukhsana Mills PA-C documented in this encounter Plan of Treatment Scheduled Referrals Name Type Priority Associated Diagnoses Orde r Schedule Referral to Spine Center Outpatient Referral Routine Bilateral hip pain Radiculopathy of lumbar region Lower extremity pain, left Lower extremity pain, right Ordered: 04/04/2022 documented as of this encounter Results * XR Hand Min 3 views Right (Generic) (04/04/2022 4:27 PM EST) Anatomical Region Laterality Modality Hand Right Digital Radiogra phy Impressions 04/05/2022 10:55 AM EST 1. ??Multifocal osteoarthropathy, including specifically at the right fourth PIP joint. 2. 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 I have personally reviewed the image(s) and the resident's interpretation and agree with the findings, Yolanda Tripp MD at 04/05/2022 10:55 AM Thank you for letting us participate in the care of this patient. ??If you are a health care provider and have any questions regarding this report, please contact the number below. ??For patients who have questions please contact the health caregiver services home that requested your imaging first. ? Narrative 04/05/2022 10:55 AM EST EXAMINATION: XR HAND MIN 3 VIEWS RIGHT (GENERIC) CLINICAL HISTORY: right fourth finger pain at PIP, eval for degenerative change TECHNIQUE: 3 views RIGHT hand COMPARISON: None FINDINGS: Bones: Osseous structures are diffusely demineralized. No acute fracture or dislocation. Radiodensity along the radial aspect of the fifth MCP joint, likely sequela of old trauma. Joints: First CMC joint: Mild joint space narrowing, subchondral sclerosis, and marginal osteophytes. Scapholunate joint: Subchondral cyst of the lunate. PIP joints: Minimal joint space narrowing and tiny marginal osteophytes of the PIP joints, including the fourth PIP joint. DIP joints: Central erosion/gullwing morphology of the fifth DIP joint. Minimal multifocal joint space narrowing and tiny marginal osteophytes of the remaining DIP joints. Soft tissues: Soft tissue swelling overlying the fifth DIP joint. Procedure Note Yolanda Tripp MD - 04/05/2022 EXAMINATION: XR HAND MIN 3 VIEWS RIGHT (GENERIC) CLINICAL HISTORY: right fourth finger pain at PIP, eval for degenerativechange TECHNIQUE: 3 views RIGHT hand COMPARISON: None FINDINGS: Bones: Osseous structures are diffusely demineralized. No acute fracture or dislocation. Radiodensity along the radial aspect of the fifth MCP joint,likely sequela of old trauma. Joints: First CMC joint: Mild joint space narrowing, subchondral sclerosis, andmarginal osteophytes. Scapholunate joint: Subchondral cyst of the lunate. PIP joints: Minimal joint space narrowing and tiny marginal osteophytes ofthe PIP joints, including the fourth PIP joint. DIP joints: Central erosion/gullwing morphology of the fifth DIP joint.Minimal multifocal joint space narrowing and tiny marginal osteophytes of theremaining DIP joints. Soft tissues: Soft tissue swelling overlying the fifth DIP joint. IMPRESSION 1. Multifocal osteoarthropathy, including specifically at the rightfourth PIP joint. 2. 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 I have personally reviewed the image(s) and the resident's interpretationand agree with the findings, Yolanda Tripp MD at 04/05/2022 10:55 AM Thank you for letting us participate in the care of this patient. If youare a health care provider and have any questions regarding this report,please contact the number below. For patients who have questions please contactthe health caregiver services home that requested your imaging first. 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 I have personally reviewed the image(s) and the resident's interpretation and agree with the findings, Yolanda Tripp MD at 04/05/2022 9:46 AM Thank you for letting us participate in the care of this patient. ??If you are a health care provider and have any questions regarding this report, please contact the number below. ??For patients who have questions please contact the health caregiver services home that requested your imaging first. ? Electronically signed by: Yolanda Tripp MD, [facility] ([phone]), at 04/05/2022 9:46 AM Narrative 04/05/2022 9:46 AM EST EXAMINATION: XR PELVIS AND HIP 2 VIEWS BILATERAL CLINICAL HISTORY: eval progression of osteoarthritis TECHNIQUE: 3 views of the pelvis and hips COMPARISON: Radiographs of the right hip and pelvis 12/18/2020 FINDINGS: Bones: No acute fracture or dislocation. Joints: Hip joints Unchanged moderate to severe bilateral eccentric joint space narrowing with subchondral sclerosis and marginal osteophytes. SI joints & pubic symphysis- Normal spacing and alignment with osteophytes. No ankylosis of SI joints. Soft tissues: Unchanged 15 mm calcific density projecting within the mid pelvis, likely a calcified fibroid. Procedure Note Yolanda Tripp MD - 04/05/2022 EXAMINATION: XR PELVIS AND HIP 2 VIEWS BILATERAL CLINICAL HISTORY: eval progression of osteoarthritis TECHNIQUE: 3 views of the pelvis and hips COMPARISON: Radiographs of the right hip and pelvis 12/18/2020 FINDINGS: Bones: No acute fracture or dislocation. Joints: Hip joints Unchanged moderate to severe bilateral eccentric joint space narrowingwith subchondral sclerosis and marginal osteophytes. SI joints & pubic symphysis- Normal spacing and alignment withosteophytes. No ankylosis of SI joints. Soft tissues: Unchanged 15 mm calcific density projecting within the mid pelvis, likelya calcified fibroid. 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 I have personally reviewed the image(s) and the resident's interpretationand agree with the findings, Yolanda Tripp MD at 04/05/2022 9:46 AM Thank you for letting us participate in the care of this patient. If youare a health care provider and have any questions regarding this report,please contact the number below. For patients who have questions please contactthe health caregiver services home that requested your imaging first. Electronically signed by: Yolanda Tripp MD, [facility]([phone]), at 04/05/2022 9:46 AM Lino Duke MD IMG DX ORDERABLES documented in this encounter Visit Diagnoses Diagnosis Bilateral hip pain- Primary Pain in joint, pelvic region and thigh Right hand pain Pain in limb Radiculopathy of lumbar region Thoracic or lumbosacral neuritis or radiculitis, unspecified Lower extremity pain, left Pain in limb Lower extremity pain, right Pain in limb Bilateral hip pain Pain in joint, pelvic region and thigh Right hand pain Pain in limb documented in this encounter Care Teams Regional Telecommunications Specialist Relationship Specialty Start Date End Date Candie Skaggs MD [address] [address] PCP - General Family Medicine 03/19/19 documented as of this encounter
--- OUTSIDE RECORDS SUMMARY | 2023-10-08 23:31 | XMS_ITS | Encounter Summary ---
Author Organization [facility] [place] [address] Care Team Providers Care Blasting Contract Man Name Role Phone [place], Estee Andino APRN Primary Care Provider [phone] Reason for Visit * Reason Comments Advice Only NPW Pulmonary Embolism Encounter Details Date Type Department Care Team (Late st Contact Info) Description 03/18/2011 1:00 PM EST Office Visit Hematology [place] [id number] Audra Fields MD [facility] [address] HEMATOLOGY [place] [address] Pulmonary embolism (Primary Dx) Discharge Disposition: Home [...] Sign Reading Time Taken Comments Blood Pressure 150/60 03/18/2011 1:19 PM EST Pulse 74 03/18/2011 1:19 PM EST Temperature 36.8 ??C (98.3 ??F) 03/18/2011 1:19 PM ES T Respiratory Rate - - Oxygen Saturation 95% 03/18/2011 1:19 PM EST Inhaled Oxygen Concentration - - Weight 69 kg (152 lb 1.9 oz) 03/18/2011 1:19 PM EST Height 155.6 cm (5' 1.26) 03/18/2011 1:19 PM ES T Body Mass Index 28.5 03/18/2011 1:19 PM EST documented in this encounter Progress Notes * Audra Fields MD - 03/18/2011 2:41 PM EST [facility] Department of Medicine [place] [address] [facility] THROMBOSIS CONSULTATION DATE OF VISIT 03/18/2011 Patient Nelsy Ruffin [age] REFERRING PHYSICIAN ESTEE STINSON APRN PRIMARY CARE PHYSICIAN ESTEE STINSON APRN REASON FOR CONSULTATION Evaluation for thrombophilia HISTORY OF THE PRESENT ILLNESS Nelsy Ruffin is a 75 y.o. 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 Nelsy was sitting in her car one day in June 2010 talking on the phone when she developed sudden onset of right flank pain. She took advil without relief and presented to the [facility] ER as the pain worsened. The pain was described as sharpand stabbing, like a knife, and was not associated with respiratory symptoms including shortness ofbreath and no cold or flu-like symptoms. A CTPA at [facility] showed a segmental PE involving the right lower lobe and she was transferred to [facility] for further treatment and evaluation. She was initially treated with IV unfractionated heparin and transitioned to enoxaparin as a bridge to warfarin and remained on warfarin until early January (~6 months). No lower extremity duplex studies were performed as she was without leg symptoms at the time. She does report, however, having intermittent calf cramp ing in the left leg. This is Nelsy's first episode of VTE and there is [...] few in the way of thrombosis risk factors as noted below: THROMBOSIS RISK FACTORS Risk Factor Comment Obesity (BMI >30 kg/m2) V/A Body mass index is 28.50 kg/(m^2). Diabetes V/A Current smoker V/A Estrogen or estrogen/progestin V/A V/A Inflammatory disease V/A Recent surgery (<3 months) V Recent hospitalization (<3 mo) V Recent travel (<3 mo) V Period of immobility V Documented thrombophilia V Accident/Trauma V/A Cancer or treatment for cancer V/A Blood transfusion V/A Central venous catheter V Family history (1st degree) V/A Varicose veins/venous insuff. V Hypertension A X Hyperlipidemia A X Vascular disease A V: Risk factor for venous thrombosis; A: Risk factor for arterial thrombosis Nelsy did well with warfarin and had no [...] stopping warfarin. She was seen in the [facility] ER about a week ago withsudden onset of double vision that was judged to be due to a 6th nerve palsy (a noncontrast head CTwas negative for gross abnormalities), and this was addressed with a special lens on the right sideof her eyeglasses. PAST MEDICAL HISTORY 1. Venous thromboembolism, 06/2010 as above RLL segmental PE Rx heparin, enoxaparin --> warfarin x 6 months Unprovoked 2. Left leg fracture Rx ORIF 3. Hypertension 4. Hyperlipidemia 5. 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 ORIF, left leg 2. Appendectomy OBSTETRIC HISTORY ; one elective termination MEDICATIONS Current outpatient prescriptions ordered prior to encounter Medication Sig Dispense Refill ??? ibuprofen (ADVIL;MOTRIN) 400 mg tablet Take 400 mg by mouth every 6 hours as needed. ??? irbesartan-hydrochlorothiazide (AVALIDE) 150-12.5 mg per tablet Take 1 tablet by mouth daily. ??? omeprazole (PRILOSEC) 20 mg capsule Take 20 mg by mouth daily. ??? atorvastatin (LIPITOR) 10 mg tablet ADVERSE DRUG REACTIONS Allergies as of 03/18/2011 - Review Complete 03/18/2011 Allergen Reaction Noted ??? 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 GENERAL: Well-appearing, articulate white female. HEENT: Oropharynx clear; no mucosal lesions, petechiae, bleeding, thrush or ulcers. NECK: Supple; no cervical, supraclavicular or submental adenopathy. BREASTS: Exam deferred. CHEST: Clear to auscultation/percussion. No rales, rhonchi, wheezes. HEART: Regular rate and rhythm; no murmur, rub, gallop ABDOMEN: Soft, non-tender, no hepatosplenomegaly. GENITOURINARY: Exam deferred. EXTREMITIES: Trace bipedal edema with a few dilated capillaries about the anterior and lateral surface of the foot. Hardware palpable over the lateral aspect. [...] Appropriate affect, no apparent distress. LABORATORY STUDIES Pending. RADIOGRAPHIC STUDIES Reviewed above. IMPRESSION Nelsy Ruffin is a 75 y.o. woman with what appears to have been an idiopathic pulmonary embolism. In the absence of a compelling family history of VTE, my suspicion for one of the rare hereditary thrombophilias is low, but it is not inconceivable that she has one of the more common, mild thrombophilias (factor V Leiden, PT [id number]). Irrespective of the presence or absence of a hereditary thrombophilia, however, she has completed an appropriate course of anticoagulation for this first event. She is interested in understanding her risk for recurrence and in how to reduce that risk, and thus is a good candidate for risk stratification with a post-treatment D-dimer test. PLAN/RECOMMENDATIONS I reviewed my impression with Adriana. I explained the concept of an idiopathic (unprovoked) episode of VTE and that up to a third of VTE episodes are unprovoked and unexplained. I explained that although we may never understand specifically what triggered her PE, we can better understand her recurrence risk with laboratory testing. We reviewed the use of post-anticoagulation D-dimer levels to stratify her recurrence risk. A low D-dimer level is associated with a relatively low risk for recurrence i.e., 5% to 7% over the two years after stopping warfarin, compared to a high D-dimer level which portends a recurrence risk of up to 20 to 30%. Should she have a low D-dimer level now that she's been off anticoagulation for >4 weeks, then the risk/benefit calculation likely favors remaining off chronic anticoagulation in favor ofepisodic thromboprophylaxis around temporary periods of increased VTE risk. We discussed the concept of hereditary and acquired thrombophilia and I reviewed with her that it is possible she has a hereditary pre-disposition to VTE (they are common) despite the lack of a compelling family history. We discussed the idea that the presence or absence of one of these conditions has few, if any, implications for current or future anticoagulation recommendations but may have implications for family members. We reviewed the risks (potential for loss of privacy, insurance discrimination and heightened anxiety over results of genetic tests), benefits (potential explanation for VTE, guide for treatment, information for family members) and limitations (lack of predictive value for VTE recurrence risk) of testing, and she is interested in proceeding. Accordingly, she'll have her blood drawn today for a standard thrombophilia screening test panel, including levels of the endogenous anticoagulants, antithrombin, protein C and protein S, APC resistance/factor V Leiden, PT G202 10A and antiphospholipid antibodies. I reviewed preventive strategies for DVT and [...] use of compression stockings recommended that she obtain a pair to wear to help control edema and to help prevent DVT, especially during travel. A compression level of 15-20 mm Hg is appropriate given the minimal edema she has. Finally, we reviewed the role of aspirin for venous thromboprophylaxis. While there is little evidence that aspirin is helpful for venous thromboprophylaxis, it is unequivocally beneficial for preventing arterial thrombosis. Given her age, she may benefit from low dose daily aspirin for coronary thromboprophylaxis and I recommended that she restart it at a dose of 81 mg daily. Nelsy Ruffin had the opportunity to ask questions and indicated that all her questions were answered to her satisfaction. She will follow up with me in approximately three weeks to discuss theresults of the thrombosis testing, and I will finalize my recommendations at that time. Audra Fields MD Information Systems Security Manager, [facility] documented in this encounter Plan of Treatment Not on file documented as of this encounter Procedures Procedure Name Priority Date/Time Associated Diagnosis Comments PROTHROMBIN MUT Routine 03/18/2011 2:20 PM EST TT Routine 03/18/2011 2:20 PM EST Pulmonary embolism PTT Routine 03/18/2011 2:20 PM EST Pulmonary embolism PT Routine 03/18/2011 2:20 PM EST Pulmonary embolism PLAT Routine 03/18/2011 2:20 PM EST Pulmonary embolism LANT Routine 03/18/2011 2:20 PM EST Pulmonary embolism FIBR Routine 03/18/2011 2:20 PM EST Pulmonary embolism THS REPORT Routine 03/18/2011 2:20 PM EST Pulmonary embolism PROTEIN S ACTIVITY Routine 03/18/2011 2: 20 PM EST D-DIMER, QUANTITATIVE Routine 03/18/2011 2:20 PM EST Pulmonary embolism APC RESISTANCE Routine 03/18/2011 2:20 PM EST BETA-2 GLYCOPROTEIN ANTIBODIES Routine 03/18/2011 2:20 PM EST Pulmonary embolism PROTEIN C ACTIVITY Routine 03/18/2011 2: 20 PM EST CARDIOLIPIN ANTIBODY SCREEN Routine 03/18/2011 2:20 PM EST Pulmonary embolism ANTITHROMBIN Routine 03/18/2011 2:20 PM EST HOMOCYSTEINE TOTAL, PLASMA Routine 03/18/2011 2:20 PM EST Pulmonary embolism THROMBOSIS SCREEN REPORT Routine 03/18/2011 2:15 PM EST THROMBOSIS SCREEN Routine 03/18/2011 2:1 4 PM EST Pulmonary embolism documented in this encounter Results * PROTHROMBIN MUT (03/18/2011 2:20 PM EST) Prothrombin Mutation Negative [facility] Prothrombin Mutation Interp RESULT: NEGATIVE FOR THE 11063 (G->A) [place] IN THE 3' UNTRANSLATED REGION OF THE PROTHROMBIN GENE. METHODS: The region of interest in the Prothrombin gene [25978 (G->A)] is interrogated using the Third Wave [employer]ader DNA assay. DNA isolated from peripheral blood is enzymatically digested and analyzed for mutation status by using signal amplification probes (2) for the mutant and wildtype gene sequences. The signal from these sequences is amplified by a Fluorescent Resonance Energy Transfer reaction and compared to determine the genotype. This assay was performed using analyte specific reagents which are regulated by the U.S. Food and Drug Administration. This test was developed and its performance characteristics determined by the Molecular Pathology Laboratory at [facility]. This test is used for clinical purposes and should not be considered as investigational or for research purposes. ??It has not been cleared or approved by the U.S. Food and Drug Administration. However, as a [place] licensed laboratory, our facility is approved for such high complexity clinical testing. [facility] Comment: [VERIFIED DATE]03.22.11 Verified By:Lizy Quesada MD Pathologist (Electronic Signature) Blood specimen (specimen) 03/18/2011 2:20 PM EST 03/19/2011 7:33 AM EST Audra Fields MD HEMATOLOGY ORDERAB LES [facility] M[facility] * (ABNORMAL) PROTEIN S ACTIVITY (03/18/2011 2:20 PM EST) Protein S Act 134(H) 65 - 123 % activity CERNER MILLENNIUM Blood specimen (specimen) 03/18/2011 2:20 PM EST 03/18/2011 2:25 PM EST Audra Fields MD HEMATOLOGY ORDERAB LES [facility] MILL[facility] * (ABNORMAL) PROTEIN C ACTIVITY (03/18/2011 2:20 PM EST) Protein C Activity 200(H) 67 - 156 % activity CERNER MILLENNIUM Blood specimen (specimen) 03/18/2011 2:20 PM EST 03/18/2011 2:25 PM EST Audra Fields MD HEMATOLOGY ORDERAB LES [facility] * (ABNORMAL) ANTITHROMBIN (03/18/2011 2:20 PM EST) Antithrombin III Assay 128(H) 80 - 120 % CERNER MILLENNIUM Blood specimen (specimen) 03/18/2011 2:20 PM EST 03/18/2011 2:25 PM EST Audra Fields MD HEMATOLOGY ORDERAB LES [facility] * APC RESISTANCE (03/18/2011 2:20 PM EST) Activated Protein C Resistance 2.45 >=2.00 CERNER MILLENNIUM Blood specimen (specimen) 03/18/2011 2:20 PM EST 03/18/2011 2:25 PM EST Audra Fields MD HEMATOLOGY ORDERAB LES Performing Organization Address [facility] de Phone Number [facility] [employer] * BETA-2 GLYCOPROTEIN ANTIBODIES (03/18/2011 2:20 PM EST) Beta 2 Glycoprotein, IgG <21 <=20 unit(s) [facility] Comment: Ranges ?Units ----- ? ----- Normal ? <21 Low Positive (+) ?21-50 Moderate Positive (+) ? 51-100 High Positive (+) ?>100 Beta 2 Glycoprotein, IgM <21 <=20 unit(s) [facility] Comment: Ranges ? Units ----- ?----- Normal ?<21 Low Positive (+) ? 21-50 Moderate Positive (+) ?51-100 High Positive (+) ? >100 B2GPI Interp see comment PREMA BAXTERIUM Comment:See Thrombosis Joann n Report in eDH under Coagulation Reports Blood specimen (specimen) 03/18/2011 2:20 PM EST 03/19/2011 8:07 AM EST Audra Fields MD IMMUNOLOGY ORDERAB LES Performing Organization Address [facility] Co de Phone Number [facility] * HOMOCYSTEINE TOTAL, PLASMA (03/18/2011 2:20 PM EST) Homocystine 9 5 - 12 mcmol/L [facility] Comment: Reference Range applies to fasting specimens only. Note change of reference range from 5-15 mcmol/L to 5-12 mcmol/L on 09/20/08. Blood specimen (specimen) 03/18/2011 2:20 PM EST 03/19/2011 8:16 AM EST Audra Fields MD CHEMISTRY ORDERABL ES [facility] * CARDIOLIPIN ANTIBODY SCREEN (03/18/2011 2:20 PM EST) Cardiolipin Antibody IgG <23 <=22 GPL unit(s) [facility] Comment: Ranges ? GPL ------- ? ------ Normal ?<23 Low Positive ? 23-35 Moderate Positive ?36-50 High Positive ? >50 Cardiolipin Antibody IgM <11 <=10 MPL unit(s) [facility] Comment: Ranges ?MPL ----- ?----- Normal ?<11 Low Positive ? 11-20 Moderate Positive ?21-30 High Positive ? >30 Blood specimen (specimen) 03/18/2011 2:20 PM EST 03/19/2011 8:07 AM EST Audra Fields MD IMMUNOLOGY ORDERAB LES Performing Organization Address [facility] Co de Phone Number CERNER MILLENNIUM * THS REPORT (03/18/2011 2:20 PM EST) THS Report See Comment CERNER MILLENNIUM Comment: See Thrombosis Screen Report [id number] under Coagulation Reports Blood specimen (specimen) 03/18/2011 2:20 PM EST 03/18/2011 2:25 PM EST Audra Fields MD HEMATOLOGY ORDERAB LES Performing Organization Address [facility] de Phone Number CERNER MILLENNIUM * PLAT (03/18/2011 2:20 PM EST) Platelet 288 145 - 370 x10(3)/mcL CERNER MILLENNIUM Blood specimen (specimen) 03/18/2011 2:20 PM EST 03/18/2011 2:25 PM EST Audra Fields MD HEMATOLOGY ORDERAB LES Performing Organization Address [facility] de Phone Number CERNER MILLENNIUM * LANT (03/18/2011 2:20 PM EST) Lupus Anticoagulant Neg Neg CERNER MILLENNIUM Blood specimen (specimen) 03/18/2011 2:20 PM EST 03/18/2011 2:25 PM EST Audra Fields MD HEMATOLOGY ORDERAB LES Performing Organization Address [facility]/ZIP Co de Phone Number CERNER MILLENNIUM * TT (03/18/2011 2:20 PM EST) Thrombin Time 16 15 - 20 sec CERNER MILLENNIUM Blood specimen (specimen) 03/18/2011 2:20 PM EST 03/18/2011 2:25 PM EST Audra Fields MD HEMATOLOGY ORDERAB LES Performing Organization Address [facility] de Phone Number [facility] * FIBR (03/18/2011 2:20 PM EST) Fibrinogen 327 200 - 470 mg/dL CERNER MILLENNIUM Blood specimen (specimen) 03/18/2011 2:20 PM EST 03/18/2011 2:25 PM EST Audra Fields MD HEMATOLOGY ORDERAB LES Performing Organization Address [facility] Phone Number [facility] * PTT (03/18/2011 2:20 PM EST) Partial Thromboplastin Time 25 25 - 35 sec [facility] Comment: Recommended therapeutic PTT range for full dose unfractionated heparin is 80-114 seconds. Blood specimen (specimen) 03/18/2011 2:20 PM EST 03/18/2011 2:25 PM EST Audra Fields MD HEMATOLOGY ORDERAB LES Performing Organization Address [facility] Phone Number [facility] * PT (03/18/2011 2:20 PM EST) Prothrombin Time 12.9 12.3 - 14.7 sec CERNER MILLENNIUM Comment: [facility] Transfusion Committee Guidelines: INR less than 2.0, PTT less than OR equal to 43.5 seconds, or Fibrinogen greater than or equal to 100 mg/dl indicate adequate procoagulant activity for hemostasis in patients without underlying bleeding disorders. International Normalization Ratio 0.9 0.9 - 1.1 CERNER MILLENNIUM Blood specimen (specimen) 03/18/2011 2:20 PM EST 03/18/2011 2:25 PM EST Audra Fields MD HEMATOLOGY ORDERAB LES Performing Organization Address [facility] de Phone Number [facility] * D-Dimer, Quantitative (03/18/2011 2:20 PM EST) [facility] D-Dimer 201 0 - 500 FEU ng/ml [facility] Comment: The D-Dimer assay is used to aid in the diagnosis of deep vein thrombosis and pulmonary embolism. A normal D-Dimer result (less than 500 FEU ng/ml) has a negative predictive value of approximately 95% for the exclusion of acute PE and DVT when there is low to moderate pretest probability. Blood specimen (specimen) 03/18/2011 2:20 PM EST 03/18/2011 2:25 PM EST Audra Fields MD HEMATOLOGY ORDERAB LES Performing Organization Address [facility] de Phone Number [facility] * THROMBOSIS SCREEN REPORT (03/18/2011 2:15 PM EST) [facility] Thrombosis Screen Report ? [facility] ? Provider: ?? Diamond SMITH, ?Pt. Name: ?? LALY NELSY Chavez ?Audra Laguna ? Acc #: ?[id number] ? Pt. ? Col Date: ?? 03/18/2011 ? /Sex: ?1935,(75 years),Female ? Rec Date: ?? 03/18/2011 ? LOC: ?3K ? THROMBOSIS SCREEN REPORT ? ---Clinical Information--- ? 75 yo woman with pulmonary embolism. ? ---Result--- ? TEST ?(REFERENCE RANGE) ?RESULT ? Platelet count ?(145,000-370,000/u L) ?288,000/cumm ? PT ?(12.3-14.7) ? 12.9 sec ? PTT ? (25-35) ? 25 sec ? Fibrinogen ?(200-470) ? 327 mg/dl ? Thrombin time ? (15-21) ? 16 sec ? APC resistance, ratio ? (>2.00) ? 2.45 ? Antithrombin ?(80-120%) ? 128% ? Protein C* ?(67-156%) ? 200% ? Protein S* ?(M:66-139%)(F:65-1 23%) ??134% ? Lupus anticoagulant ? (negative) ?negative ? Anticardiolipin antibodies ?(IgG <23 GPL) ? <23 GPL ? Anticardiolipin antibodies ?(IgM <11 MPL) ? <11 MPL ? Vtbi-5-bjdoyzeiugyj- 1 antibodies ??(IgG <21 units) ? IgG <21 units ? Xqhd-1-qckicvzsqhqo- 1 antibodies ??(IgM <21 units) ? IgM <21 units ? Homocysteine, random, plasma ?(<12 umol/L) ?9 umol/L ? Prothrombin (37124 G->A) mutation (normal) ?negative ? * Functional assay for free Protein S and Protein C ? ---Interpretation--- ? No evidence for the presence of common hematologic risk factors associated ? with hereditary or acquired thrombophilia (see ? comment). ? 03/26/11 ? DLO ? 03/26/11 Verified by: ? Diamond SMITH, Audra Laguna ? Hematopathologist ? (Electronic Signature) ? The attending pathologist whose signature appears on this report has ? reviewed all diagnostic slides and has edited the gross and/or ? microscopic portion of the report in rendering the final pathologic ? diagnosis. ? ---Comment--- ? The screening test for activated protein C resistance is negative, hence ? there is no evidence for the presence of factor V Leiden. ??The ? [facility] ? Provider: ?? Diamond SMITH, ?Pt. Name: ?? NELSY RUFFIN ?Audra Edmond. ? Acc #: ?[id number] ? Pt. ? Col Date: ?? 03/18/2011 ? /Sex: ?1935,(75 years),Female ? Rec Date: ?? 03/18/2011 ? LOC: ?3K ? THROMBOSIS SCREEN REPORT ? DNA assay for factor V Leiden is therefore not indicated and was not ? performed as part of this study. ? Although the thrombophilia screening panel is negative, this individual may ? have additional as yet undefined genetic or environmental risk factors for ? venous thrombosis. Consultation with a thrombosis specialist or genetic ? counselor may be helpful for further characterizing specific thrombosis ? risk for this patient, if clinically appropriate. MAO MARTÍNEZ 03/18/2011 2:15 PM EST Audra Fields MD PATHOLOGY/CYTOLOGY ORDERABLES MAO MARTÍNEZ documented in this encounter Visit Diagnoses Diagnosis Pulmonary embolism- Primary Other pulmonary embolism and infarction documented in this encounter Care Teams Blasting Contract Man Relationship Specialty Start Date End Date Estee Stinson APRN PCP - General 01/09/10 10/12/14 documented as of this encounter
--- OUTSIDE RECORDS SUMMARY | 2023-10-08 23:31 | XMS_ITS | Encounter Summary ---
Author Organization [facility] [place] [address] Care Team Providers Care Laboratory Helper Name Role Phone Stefan Arteaga MD Primary Care Provider [phone] Encounter Details Date Type Department Care Team (Late st Contact Info) Description 05/02/2017 [place] [phone] Milagros Alexander MD [facility] [place] [address] Social History Tobacco Use Types Packs/Day Years [...] encounter Miscellaneous Notes * Telephone Encounter - Milagros Alexander - 05/02/2017 12:42 PM EDT Telephone Triage Note Initial Contact Date: 05/02/17 Initial contact time: 12:42pm Referring Provider: [facility] Patient Location: [facility] Presenting Symptoms per OSH: 81 year old female with a hx of HLD, HTN, pericardial effusion, pulmonary embolism (13 years ago) who presented to OSH with epigastric discomfort associated with arm pain, dizziness this am. Woke this morning feeling well, did exercises, ate. Went from sitting to standing, got lightheaded, arm painand GERD type Sx. BP 230/120 on arrival to ED. EKG with lateral ST depressions. Trop 0.32 (ULN 0.06). k 2.9, Cr 0.95. Started on nitro gtt, pain better . Got IV and PO metoprolol, repeat BP 170/80. Past Medical History: As above OSH Interventions: BB Nitro gtt ASA 75mg plavix Plan: NSTEMI. +troponin, ongoing chest pain, HDS. Receiving ACS meds. Start nitro gtt to control chest pain. Trend troponin, if continues to significantly rise, EKG changes or pain uncontrolled despite nitro gtt, OSH to recontact transfer center. As [facility] [place] currently full with no expected further dischargestoday, accepted patient but suggested OSH also explore other transfer options. Will let us know if they transfer somewhere else. Milagros Alexander MD Wireline Supervisor documented in this encounter Plan of Treatment Not on file documented as of this encounter Visit Diagnoses Not on filedocumented in this encounter Care Teams Laboratory Helper Relationship Specialty Start Date End Date Stefan Arteaga MD PCP - General 10/13/14 03/18/19 documented as of this encounter
--- OUTSIDE RECORDS SUMMARY | 2023-10-08 23:31 | XMS_ITS | Encounter Summary ---
Author Organization [place] [address] Care Team Providers Care Technician Plant And Maintenance Name Role Phone Stefan Arteaga MD Primary Care Provider [phone] Reason for Visit * Reason Comments Travel Consult Encounter Details Date Type Department Care Team (Late st Contact Info) Description 10/14/2014 2:30 PM EDT Office [place] [phone] Charisma Zhang, RN [facility] INFECTIOUS [place] [address] Other specified counseling Discharge Disposition: Home Social History Tobacco Use [...] Sign Reading Time Taken Comments Blood Pressure 100/62 10/14/2014 2:35 PM EDT Pulse 56 10/14/2014 2:35 PM EDT Temperature 36.8 ??C (98.3 ??F) 10/14/2014 2:35 PM ED T Respiratory Rate 18 10/14/2014 2:35 PM EDT Oxygen Saturation - - Inhaled Oxygen Concentration - - Weight - - Height - - Body Mass Index - - documented in this encounter Patient Instructions * Patient Instructions* Charisma Zhang RN - 10/14/2014 3:45 PM EDT Today, you received the following vaccines: [] Hepatitis A* (this is your second final dose) [] Typhoid oral (Take 1 capsule every other day on am empty stomach x 4 doses. Keep in fridge. Goodfor 5 years) From your primary care provider you should get - flu shot - prevnar (the newer pneumococcal vaccine) - TDaP (tetanus, diphtheria and pertussis) Please remember to get a flu shot before traveling. Today, you we discussed malaria prevention. You are in a lower risk (not no risk) area, so we did not prescribe antimalarial but it is very important to follow good insect precautions. This will helpprevent JE, Dengue and Chikengunya also. Good food and water precautions. I sent a script for Azithromycin in case you get ill with diarrhea(fever, etc) Carry all medicines in your carry on luggage. Get up and walk around a lot on the plane. Make sure you wear your compression stockings when flying. Have a great trip! Travel Safely, [email or web address] [phone] documented in this encounter Progress Notes * Jacinto Plata MD - 10/27/2014 6:14 PM EDT I agree with the recommendations of Zeina Zhang after review of her note. * Ketan Harrison LPN - 10/14/2014 4:07 PM EDT Injectioin given in (R) arm per request, no adverse reactions noted or reported * Charisma Zhang RN - 10/14/2014 3:01 PM EDT Adult Travel Clinic Reason for Visit: Ms. Nava is a 78 y.o. patient who comes to travel clinic today for pre-travelevaluation, vaccination and traveler's health education. She is accompanied by her . Trip Details: Destination countries (list from first to last): [facility] Departure date: nov 17 Length of trip: 3weeks, ?tomy varanasi Purpose of travel: retreat Type of environment: small town [facility]ommod[facility] Medical History: Medical problems: Patient Active Problem List Diagnosis Code ??? Pulmonary embolism, unprovoked 415.19 ??? Pericardial effusion 423.9 ??? Hypertension 401.9 ??? GERD (gastroesophageal reflux disease) 530.81 ??? Hyperlipidemia 272.4 ??? Squamous cell carcinoma 199.1 ??? History of SCC (squamous cell carcinoma) of skin V10.83 ??? Solar lentigo 709.09 Current Outpatient Prescriptions Medication Sig Dispense Refill ??? LORazepam (ATIVAN) 0.5 mg Tablet Take 0.5 mg by mouth every 6 hours as needed for Anxiety. ??? aspirin 81 mg Tablet, Delayed Release (E.C.) Take 81 mg by mouth daily. ??? cyanocobalamin 500 mcg Tablet Take 500 mcg by mouth daily. ??? atorvastatin (LIPITOR) 10 mg tablet Take 10 mg by mouth daily. ??? ibuprofen (ADVIL;MOTRIN) 400 mg tablet Take 400 mg by mouth every 6 hours as needed. ??? irbesartan-hydrochlorothiazide (AVALIDE) 150-12.5 mg per tablet Take 1 tablet by mouth daily. ??? valACYclovir (VALTREX) 500 mg tablet Take 1 tablet by mouth 2 times daily. One tab twice daily for three days of each outbreak 6 tablet 4 ??? omeprazole (PRILOSEC) 20 mg capsule Take 20 mg by mouth daily. No current facility-administered medications for this visit. Immunosuppression: none History of adverse vaccine reactions: no History of latex, egg or beesting allergy: no or : no Patient advised to carry all medications in carry on luggage. Travel Health and Safety Issues: A discussion of travel health hazards and safety issues was done, including the following topics: traffic-accidents (alcohol, seatbelts), crime, alcohol related issues, sun exposure/heat illness, Schistosomiasis and other fresh water exposures, rabies, HIV infections, Hepatitis and other STD's,TB, Health Insurance coverage/[employer]. DIscussed risk of DVT with her past history of PE. She has compression stockings and will wear. Discussed movement on plane, hydration and seek medical care urgently with symptoms. Discussed food and water precautions and patient [...] daily x 3 days sent to pharmacy. ?? For severe or bloody diarrhea, or diarrhea accompanied by vomiting: patient advised to seek medical treatment. Vector-borne Disease Prevention Discussed insect bite prevention to reduce risk of malaria, dengue and other insect borne illnesses. Handout given. Malaria Risk: Malaria risk in country (ies) visited, but not high enough risk on this itinerary to warrant chemoprophylaxis. Altitude: Highest altitude anticipated will be 6k. DIcscussed sun protection.. Immunizations Immunization History Administered Date(s) Administered ??? Hepatitis A Vaccine, unspecified formulation 02/03/2006 ??? Inactivated Polio Vaccine 02/03/2006, 03/10/2006, 09/08/2006 ??? Td, adult 02/03/2006 ??? Typhoid Live, Oral 02/03/2006 Today - oral typhoid - Hep A #2 Has appt with PCP in Oct and would like to get there - TDaP - prevnar - influenza Rabies - discussed at length. Declined vaccine. Wound care, need for PEP discussed. JE - discussed at length. Some but not high risk as trip is more indoor activities, willing to mitigate risk with meticulous insect precautions. Hep B - not particulalrly high risk. Discussed. Follow-up Recommendations: Follow up with primary care provider for remaining vaccinations. Patient advised to call travel clinic if they return from trip with any illness. Time spent in travel counselin min with Vaccine information sheets given. documented in this encounter Plan of Treatment Not on file documented as of this encounter Visit Diagnoses Diagnosis Other specified counseling documented in this encounter Care Teams Technician Plant And Maintenance Relationship Specialty Start Date End Date Stefan Arteaga MD PCP - General 10/13/14 03/18/19 documented as of this encounter
--- OUTSIDE RECORDS SUMMARY | 2023-10-08 23:31 | XMS_ITS | Encounter Summary ---
[facility] Organization [facility] Address [facility] [place] [address] Care Team Providers Care Aviation Manager Name Role Phone Candie Skaggs MD Primary Care Provider [phone] Encounter Details Date Type Department Care Team (Latest Contact Info) Description 04/04/2022 2:53 PM EST - 04/04/2022 4:12 PM EST Hospital Encounter XRay at [address] [place] [phone] Lino Duke MD Bilateral hip pain Discharge Disposition: Home Social History Tobacco Use [...] Sig Dispensed Refills Start Date End Date calcium carbonate/vitamin D3 (VITAMIN D-3 ORAL) Take by mouth. estradioL (ESTRACE) 0.01 % (0.1 mg/gram) Cream estradiol 0.01% (0.1 mg/gram) vaginal cream APPLY ONE GRAM VAGINALLY TWICE A WEEK 12/16/2019 hydroCHLOROthiazide (Hydrodiuril) 12.5 mg Tablet hydrochlorothiazide 12.5 mg tablet TAKE ONE TABLET BY MOUTH EVERY MORNING latanoprost (Xalatan) 0.005 % Drops latanoprost 0.005 % eye drops INSTILL ONE DROP INTO BOTH EYE AT BEDTIME - SHAKE BEFORE USE 10/31/2020 losartan (COZAAR) 100 mg Tablet losartan 100 mg tablet TAKE ONE TABLET BY MOUTH EVERY MORNING IF SYSTOLIC BLOOD PRESSURE > 120 05/22/2021 NIFEdipine (Procardia) 10 mg Capsule nifedipine 10 mg capsule GARCIA CAPSULE AND SWALLOW CONTENTS ONCE IF NEEDED FOR FOR BLOOD PRESSURE OVER 170 potassium chloride (K-Tab) 20 mEq Tablet Sustained Release as needed. 08/10/2020 valACYclovir (Valtrex) 1 gram Tablet as needed. rivaroxaban (Xarelto) 10 mg Tablet Take 10 mg by mouth daily. documented as of this encounter Plan of Treatment Not on file documented as of this encounter Procedures Procedure Name Priority Date/Time Associated Diagnosis Comments XR PELVIS AND HIP 2 VIEWS BILATERAL Routine 04/04/2022 3:33 PM EST Bilateral hip pain documented in this encounter Results * XR Pelvis and Hip 2 Views [...] who have questions please contact the health rn palliative care that requested your imaging first. ? Narrative 04/05/2022 9:46 AM EST EXAMINATION: XR [...] patients who have questions please contactthe health rn palliative care that requested your imaging first. Lino Duke MD IMG DX ORDERABLES documented in this encounter Visit Diagnoses Diagnosis Bilateral hip pain Pain in joint, pelvic region and thigh documented in this encounter Care Teams Aviation Manager Relationship Specialty Start Date End Date Candie Skaggs MD [address] [place] [address] PCP - General Family Medicine 03/19/19 documented as of this encounter
--- OUTSIDE RECORDS SUMMARY | 2023-10-08 23:31 | XMS_ITS | Encounter Summary ---
Author Organization [facility] [place] [address] Care Team Providers Care Tourist Guide Name Role Phone Candie Skaggs MD Primary Care Provider [phone] Encounter Details Date Type Department Care Team (Late st Contact Info) Description 05/22/2021 Telephone Dermatology at [facility] [address] [place] [phone] Geovanni Champagne MD [facility] [place] [address] Social History Tobacco Use Types Packs/Day Years [...] encounter Miscellaneous Notes * Telephone Encounter - Lory De La Torre - 05/22/2021 11:12 AM EDT Patient Abby Ruffin called wanting to schedule with Dr. Champagne for spots on face - I triedto get her to schedule with other providers, but no. Please call [phone]. Thank you, Maye documented in this encounter Plan of Treatment Not on file documented as of this encounter Visit Diagnoses Not on filedocumented in this encounter Care Teams Tourist Guide Relationship Specialty Start Date End Date Candie Skaggs MD [address] [place] [address] PCP - General Family Medicine 03/19/19 documented as of this encounter
--- OUTSIDE RECORDS SUMMARY | 2023-10-08 23:31 | XMS_ITS | Encounter Summary ---
[facility] Address [facility] [place] [address] Care Team Providers Care Sales Incentive Analyst Name Role Phone Candie Skaggs MD Primary Care Provider [phone] Encounter Details Date Type Department Care Team (Latest Contact Info) Description 04/04/2022 4:13 PM EST - 04/04/2022 11:59 PM EST Hospital Encounter XRay at [address] [place] [phone] Lino Duke MD Right hand pain Discharge Disposition: Home Social History Tobacco [...] Name Priority Date/Time Associated Diagnosis Comments XR HAND MIN 3 VIEWS RIGHT Routine 04/04/2022 4:27 PM EST Right hand pain documented in this encounter Results * XR Hand Min [...] who have questions please contact the health ambulatory care nurse that requested your imaging first. ? Narrative [...] patients who have questions please contactthe health ambulatory care nurse that requested your imaging first. Lino Duke MD IMG DX ORDERABLES documented in this encounter Visit Diagnoses Diagnosis Right hand pain Pain in limb documented in this encounter Care Teams Sales Incentive Analyst Relationship Specialty Start Date End Date Candie Skaggs MD [address] [place] [address] PCP - General Family Medicine 03/19/19 documented as of this encounter
== END 2023-10-08 23:29 | disposition home or self-care (01) ==
LOC: NCHCN 23:28
PROVIDERS: PCP Family Medicine; Visit Provider Physician Assistant
DX: R10.13 Epigastric pain (principal)
CPT/HCPCS: 80053; 83690; 81003; 81015; 83735; 85025

== ENCOUNTER 2023-10-19 06:03 | Emergency (ER) | payer MEDICARE, SELFPAY ==
[2023-10-19] VITALS (41 sets, daily range): BP systolic 135–219; BP diastolic 59–97; PULSE 51–68; RESP 18; TEMP 36.4–37.1; O2SAT 94–100
--- NOTE | 2023-10-19 06:08 | ED.GENADUL_ITS ---
Discharge Plan Discharge Details Chief Complaint: Abd Prob Primary Care Provider: Candie Skaggs ED Provider: Rodolfo Morales Home Meds and New Rx's Prescriptions: No Action estradiol 0.01 % (0.1 mg/gram) cream 1 g vaginal .COMPLEX Qty: 42.5 5RF Rx Instructions: 1 g vaginal; 2 times a week Emergen-C 1,000 mg powder effervescent in packet 1 packet PO DAILY clobetasol 0.05 % ointment 1 applic topical .COMPLEX Qty: 45 4RF Rx Instructions: 1 applic topically tiny amount to clitoris; hydrochlorothiazide 12.5 mg tablet 12.5 mg PO DAILY losartan 100 mg tablet 100 mg PO DAILY magnesium oxide 500 mg tablet 500 mg PO DAILY cholecalciferol (vitamin D3) 50 mcg (2,000 unit) capsule 50 mcg PO DAILY lorazepam 0.5 mg tablet 0.5 mg PO DAILY PRN estradiol 0.01 % (0.1 mg/gram) cream 1 g vaginal .twice weekly Qty: 42.5 4RF Xarelto 20 mg tablet 10 mg PO DAILY Patient Comments: TAKE ONE TABLET BY MOUTH EVERY DAY potassium chloride 20 mEq tablet extended release 20 meq PO DAILY Patient Comments: 06/22/20 pt states that she only takes it sometimes dicyclomine 10 mg capsule 10 mg PO BID PRN Patient Comments: TAKE ONE CAPSULE BY MOUTH TWICE A DAY NEEDED STOMACH SPASMS amlodipine 5 mg tablet 5 mg PO DAILY Patient Comments: TAKE ONE TABLET BY MOUTH EVERY DAY pantoprazole 40 mg tablet,delayed release (DR/EC) 40 mg PO BID Patient Comments: TAKE ONE TABLET BY MOUTH TWICE A DAY metoprolol succinate 25 mg tablet extended release 24 hr 12.5 mg PO DAILY Patient Comments: TAKE ONE-HALF TABLET BY MOUTH TWICE A DAY HPI General Mode of arrival: EMS . Date/Time Provider Initiated Documentation: 10/19/23 06:08 . Limitations to Documentation: no limitations . Information obtained by: patient, family, RN notes reviewed and old records reviewed (Recent [facility] admission) . HPI Narrative: Patient presents to ED with complaint of epigastric abdominal pain and nausea. Patient has had this now for a couple of weeks. It waxes and wanes in intensity. She was admitted to [facility] and discharged Friday, 6 days ago. reports that she had a fairly comprehensive workup including EGD, cardiac echo, CT of the abdomen pelvis. Since being home she has had difficulty taking anything orally. She has waxing and waning abdominal pain and nausea. Pain this morning became severe once again. Denies having any type of chest pain. Does complain of feeling short of breath which has been an issue associated since it started. Denies any fever or cough. She is on anticoagulation for previous pulmonary embolus. Related Data Home Medications ?Medication ?Instructions ?Recorded ?Confirmed estradiol 0.01% (0.1 mg/gram) 1 g vaginal .COMPLEX #42.5 grams 12/16/19 10/19/23 vaginal cream potassium chloride 20 mEq 20 meq PO DAILY 06/22/20 10/19/23 tablet,extended release ascorbic acid 1,000 1 packet PO DAILY 06/11/22 10/19/23 [id number]-gndrvnwn powder effervescent pack (Emergen-C) clobetasol 0.05 % topical ointment 1 applic topical .COMPLEX #45 grams 06/11/22 10/19/23 rivaroxaban 20 mg tablet (Xarelto) 10 mg PO DAILY 06/11/22 10/19/23 cholecalciferol (vitamin D3) 50 50 mcg PO DAILY 06/18/22 10/19/23 mcg (2,000 unit) capsule hydrochlorothiazide 12.5 mg tablet 12.5 mg PO DAILY 06/18/22 10/19/23 lorazepam 0.5 mg tablet 0.5 mg PO DAILY PRN 06/18/22 10/19/23 losartan 100 mg tablet 100 mg PO DAILY 06/18/22 10/19/23 magnesium oxide 500 mg PO DAILY 06/18/22 10/19/23 estradiol 0.01% (0.1 mg/gram) 1 g vaginal .twice weekly #42.5 08/04/23 10/19/23 vaginal cream grams amlodipine 5 mg tablet 5 mg PO DAILY 10/19/23 10/19/23 dicyclomine 10 mg capsule 10 mg PO BID PRN 10/19/23 10/19/23 metoprolol succinate 25 mg 12.5 mg PO DAILY 10/19/23 10/19/23 tablet,extended release 24 hr pantoprazole 40 mg tablet,delayed 40 mg PO BID 10/19/23 10/19/23 release Previous Rx's ?Medication ?Instructions ?Recorded estradiol 0.01% (0.1 mg/gram) 1 g vaginal .COMPLEX #42.5 grams 12/16/19 vaginal cream clobetasol 0.05 % topical ointment 1 applic topical .COMPLEX #45 grams 06/11/22 estradiol 0.01% (0.1 mg/gram) 1 g vaginal .twice weekly #42.5 08/04/23 vaginal cream grams Allergies Allergy/AdvReac Type Severity Reaction Status Date / Time codeine (Codeine) AdvReac Mild Nausea Unverified 10/19/23 07:08 General CARMEN: 3 Review of Systems Narrative: Per HPI Exam Narrative Exam Narrative: Const: WDWN elderly female in NAD. VS per triage. HEENT: NC/AT. Normal facial exam. Neck: Supple. Trachea midline. Lungs: Normal respiratory effort. Lungs are clear. Cor: RRR without murmur. Good radial pulses. GI: Soft/ND. Tender epigastric region without guarding. Neuro: A+O x 3. Normal speech, mentation, gait. Cranial nerves II - XII grossly intact. No gross motor or sensory deficit. Ext: No C/C/E. Medical Decision Making Patient presenting for continued abdominal pain. Been present for couple of weeks now. Discharge summary from [facility] was reviewed. She was actually admitted there for hypertensive urgency. She was felt to have a type II NSTEMI related to her hypertension. Her workup did include a CT angio of the chest abdomen pelvis which was unremarkable. Blood pressure was controlled and amlodipine was added. She had an echo which noted a stable pericardial effusion. 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 Stomach and duodenum appeared normal. She was discharged on pantoprazole 40 mg twice a day, amlodipine 5 mg once a day, a GI cocktail 3 times a day in addition to her previous medications. Patient does have some tenderness without guarding in the epigastric region. She does appear uncomfortable. IV established and fluids started. Ordered for GI cocktail, simethicone, IV fluids and prochlorperazine. Laboratory studies sent. EKG is sinus rhythm at [address] changes which are unchanged from previous. Patient's labs show a normal white count and hemoglobin. Potassium a little low at 3.1 which has been ordered to be replaced intravenously. Does have an anion gap and some increase in her renal function suggesting element of dehydration. Her lipase is just above normal limits. Troponin negative. Liver function unremarkable other than bilirubin which is now 1.7. Was 1.2 on October 07 as outpatient. No right upper quadrant ultrasound has been obtained as part of her workup for this upper abdominal pain. Continues to complain of pain but also did not want to take the oral medications. Subsequently convinced to take a GI cocktail which seems to have helped. IV pantoprazole ordered. One-time dose of as needed morphine ordered if needed. Right upper quadrant ultrasound to be done this morning. Patient be signed out to oncoming ED physician pending ultrasound results. If no abnormal findings would continue patient's previously ordered medications and have follow-up with PCP as previously planned. Medical Records Medical records reviewed: Yes I reviewed the patient's medical records. Medical records narrative: Discharge summary for admission at [facility] from 10/10 - 10/12. Lab Data Lab results reviewed: Yes I reviewed the patient's lab results. ECG Data Attestation: I personally reviewed and interpreted this ECG (s) as follows: Prior ECG tracings: available for review Interpretation: see EKG/unchanged PFSH All Active Problems Prediabetes (Acute) Cardiac murmur (Acute) Polymyalgia rheumatica (Acute) Pulmonary embolism (Chronic) Acute epigastric pain (Acute) Breath shortness (Acute) Lichen sclerosus et atrophicus (Acute) Atrophic vaginitis (Acute) Medical History Genital herpes Sensory hearing loss, bilateral (06/13/14) Hypokalemia Hypertension Barretts esophagus PE (pulmonary embolism) GERD (gastroesophageal reflux disease) Atypical chest pain 05/02/17- seen at [facility]. 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 [place]. History History 2 Para Hx # Term Pregnancies 1 Multiple births Hx # Pregnancies Ectopic pregnancies AB induced 1 Hx Number of Living Children 1 AB spontaneous
--- NOTE | 2023-10-19 06:15 | RT.EKG_ITS ---
APPROVED REPORT Exam: Resting ECG Reason for Exam: epigastric pain Patient Location: E HR:52 bpm ECG Measurements Heart Rate 52 AXIS MD 168 P 54 QRSd 92 QRS 17 QT 440 T 56 QTc 410 Conclusion Sinus bradycardia...rate< 60 Probable left atrial enlargement...P >50mS, <-0.10mV V1 There are no significant changes compared to prior EKG performed on 01/19/2021 at 16:20.
--- OUTSIDE RECORDS SUMMARY | 2023-10-19 06:20 | XMS_ITS | Encounter Summary ---
Author Organization [facility] [place] [address] Care Team Providers Care Distillery Miller Helper Name Role Phone aCndie Skaggs MD Primary Care Provider [phone] Reason for Visit * Auth/Cert (Routine) Specialty Diagnoses / Procedures Referred By Contbrendan t Referred To Contact Diagnoses Upper abdominal pain Hypertensive urgency More Barlow MD [facility] [place] [address] [facility] Referral ID Status Reason Start Date Expiration Date Visits Re quested Visits Authorized [id number] 1 1 Encounter Details Date Type Department Care Team (Late st Contact Info) Description 10/13/2023 10:14 AM EDT Anesthesia [place] [address] Guilherme Alvarado MD [facility] [place] [address] Anesthesia Record Procedure Summary Procedure Name Responsible Anesthesiologist Anesthesia Start Time Anesthesia Stop Time EGD WITH BIOPSY (WRVU 2.39) (Trunk) Guilherme Alvarado MD 10/13/23 1014 10/13/23 1034 Events Date Time Event Comment 10/13/2023 1011 1014 AN Verify 1014 Start 1014 An Start Data 1019 An Induction 1021 Anesthesia Ready 1033 an stop data 1033 Recovery or ICU Handoff Radha ent care was transferred to the destination unit staff after review of the patient's medical history, current anesthetic/surgical status and plan, according to the Provider Handoff Checklist. 1034 Stop Meds Name Total lidocaine IV 100 mg propofoL 50 mg propofol INF 103.36 mg dexmedeTOMIDine 4 mcg/mL 4 mcg ondansetron 4 mg dexAMETHasone 4 mg lactated ringers 200 mL * Agents Name O2 Air N2O O2 Auxiliary Flowmeter 1 * Blood No blood administrations on file. Lines, Drains, and Airways Type Details Placement Removal PIV 10/11/23; 1400; [id number] catheter system; 20 gauge; median cubital vein (antecubital fossa), right; Anatomical Landmarks 10/11/23 1400 by Perlita Milian RN External Catheter 10/12/23; 1432; exte rnal catheter applied, skin care provided 10/12/23 1432 by Jennifer Zhou RN documented in this encounter Social History Tobacco Use Types Packs/Day Years Used Date Smoking Tobacco: Former Cigarettes 0.5 3 Smokeless Tobacco: Former Quit: 06/22/1979 Alcohol Use Standard Drinks/Week Comments Yes 2 (1 standard drink = 0.6 oz pur e alcohol) [facility] Utilities Answer Date Recorded In the past 12 months has th e [employer], gas, oil, or water [employer] threatened to shut off services in your home? No 10/13/2023 Hunger Vital Sign Answer Date Recorded Within the past 12 months, y ou worried that your food would run out before you got the money to buy more. Never true 10/13/19 24 Within the past 12 months, t he food you bought just didn't last and you didn't have money to get more. Never true 10/13/2023 PRAPARE - Transportation Answer Date Re corded In the past 12 months, has l ack of transportation kept you from medical appointments or from getting medications? No 09/18 In the past 12 months, has l ack of transportation kept you from meetings, work, or from getting things needed for daily living? No 10/13/2023 Housing Stability Vital Sign Answer Master e Recorded In the last 12 months, was t here a time when you were not able to pay the mortgage or rent on time? No 10/13/2023 Number of Times Moved in the Last Year Not on fi le 10/13/2023 At any time in the past 12 m [facility], were you homeless or living in a [place] facility (including now)? No 10/13/2023 DH IPV Inpatient Questions Answer Date Recorded Does Anyone Try to Keep You From Having Contact with Others or Doing Things Outside Your Home? no 10/11/2023 Feels Threatened by Someone no 09/18 Feels Unsafe at Home or Work/School no 10/11/2023 Physical Signs of Abuse Present no 10/11/2023 Sex and Gender Information Value Date Recorded Sex Assigned at Not on file Gender Identity Not on file Sexual Orientation Not on file documented as of this encounter OR Notes * Anesthesia Postprocedure Evaluation - Guilherme Alvarado MD - 10/13/2023 11:11 AM EDT Department of Anesthesiology Post-procedure Note Patient: Abby Ruffin Procedure Summary Date: 10/13/23 Room / Location: [facility] ENDO 3 / [facility] ENDOSCOPY Anesthesia Start: 1014 Anesthesia Stop: 103 Procedure: EGD WITH BIOPSY (WRVU 2.39) (Trunk) Diagnosis: (Wt loss) Surgeons: Geovanni Bell MD Responsible Provider: Guilherme Alvarado MD Anesthesia Type: MAC ASA Status: 3 All Anesthesia Providers: Anesthesiologist: Guilherme Alvaardo MD AUTOMOBILE INSPECTOR: Roslyn Gaona CRNA Vitals Value Taken Time BP 142/77 10/13/23 1100 Temp Pulse Resp 16 10/13/23 1040 SpO2 95 % 10/13/23 1109 Pain Level 0 10/13/23 1040 Vitals shown include unfiled device data. Patient Location: PACU/[facility] Level of Consciousness: Awake and Alert Pain Management: Satisfactory Analgesia PONV: None Cardiovascular Status: At Baseline and Hemodynamically Stable Respiratory Status: At Baseline and Room Air Postoperative Fluid Status: Intravascular EUvolemia Possible Anesthetic Complications: NONE apparent at time of evaluation Final Primary Anesthesia Type: MAC (The anesthetic type performed was the same as planned.) Comments: * Anesthesia Preprocedure Evaluation - Guilherme Alvarado MD - 10/13/2023 9:31 AM EDT Images from the original note were not included. Pre-Anesthesia Evaluation for: Abby roper 87 y.o. female. Procedure(s): EGD, UPPER GI ENDOSCOPY (VU 2.09) Patient Active Problem List Diagnosis Date Noted ??? *Hypertensive urgency 10/11/2023 ??? PMR (polymyalgia rheumatica) 04/15/2022 ??? Gastroesophageal reflux disease without esophagitis 05/30/2021 ??? Epigastric pain 05/03/2017 ??? History of SCC (squamous cell carcinoma) of skin 02/01/2014 ??? Solar lentigo 02/01/2014 ??? Squamous cell carcinoma 07/30/2013 ??? Pulmonary embolism, unprovoked 06/21/2010 ??? Pericardial effusion 06/21/2010 ??? Hypertension ??? GERD (gastroesophageal reflux disease) ??? Hyperlipidemia Past Medical History: Diagnosis Date ??? GERD (gastroesophageal reflux disease) ??? Hyperlipidemia ??? Hypertension ??? Pericardial effusion 06/21/2010 ??? Pulmonary embolism, unprovoked 06/21/2010 Past Surgical History: Procedure Laterality Date ??? APPENDECTOMY Social History Tobacco Use ??? Smoking status: Former Current packs/day: 0.50 Average packs/day: 0.5 packs/day for 3.0 years (1.5 ttl pk-yrs) Types: Cigarettes ??? Smokeless tobacco: Former Quit date: 06/22/1979 Substance Use Topics ??? Alcohol use: Yes Alcohol/week: 2.0 standard drinks of alcohol Types: 2 Glasses of wine per week Social History Substance and Sexual Activity Drug Use No Allergies Allergen Reactions ??? Codeine Phosphate Nausea And Vomiting Medications: MAR and/or home medications have been reviewed. Physical Exam: Preprocedure Vitals Current as of 10/13/23 0931 BP: 150/70 Pulse: 55 Resp: 18 SpO2: 93 Temp: 36.5 ??C (97.7 ??F) Height: 154.9 cm (5' 1) (10/11/23) Weight: 64.4 kg (142 lb) (10/11/23) BMI: 26.83 IBW: 47.8 kg (105 lb 4.8 oz) Last edited 10/13/23 0835 by CAROL Currently displaying vitals information from multiple entries within 180 minutes of most recent vitals. Airway Assessment: Mallampati: II TM distance: >3 FB Neck ROM: full Cardiovascular Assessment: system normal Pulmonary Assessment: pulmonary exam normal Dental Assessment: Misc Assessment: Patient is wearing No contact(s). IV access: Peripheral line Last Filed Perioperative Cognitive Screening Value Time User 4AT TOTAL Score: 0 10/12/2023 10:00 PM Patricia Jj RN Anesthesia Plan: ASA 3 MAC, with a(n) intravenous induction 87yoF w h/o HTN, HLD PE (rivaroxaban; last dose 10/11 @ 0917hrs), Haque's esophagus, admitted 10/10w belching, abd pain, hypertensive emergency (tpn 17- >15; cards c/s felt related to HTN, not CAD), small pericardial effusion on CTA chest (of note, had pericardial effusion on TTE in 2010 w/o tamponade physiology), now presenting for EGD to identify potential source of sxs. Denies N/V presently. Hypertensive on floor (SBPs 150-200s), bradycardic w HR 40-50s, 93% on RA. Labs reviewed. Plan MAC, GA backup. Risks/benefits discussed with patient including, but not limited to, dental/airway/lip injury, vascular injury, nerve injury, thrombosis, limb ischemia, eye injury, blindness, adverse drug reactions, awareness, stroke, CO, , among others. All questions answered to patient's satisfaction. TTE (06/21/10): SUMMARY: 1. Left ventricular chamber size, wall [...] See remainder of report for additional findings. Region - Other Informed Consent: Anesthetic plan and risks discussed with patient. Use of blood products discussed with patient who consented to blood products. Plan discussed with AUTOMOBILE INSPECTOR. Anesthesia Screening documented in this encounter Plan of Treatment Upcoming Encounters Date Type Department Care Team (Late st Contact Info) Description 10/27/2023 10:00 AM EDT TH Visit (TeleHealth) [place] [address] Olga Melgar APRN [facility] [place] [address] documented as of this encounter Visit Diagnoses Not on filedocumented in this encounter Administered Medications Inactive Administered Medications - up to 3 most recent administrations Medication Order MAR Action Action Date Dose Rate Site dexAMETHasone (Decadron) injection Intravenous, PRN, Starting on Fri10/13/23 at 1014, Until Fri10/13/23 at 1034, Anesthesia Intra-op, Routine Given 10/13/2023 10:14 AM EDT 4 mg dexmedeTOMIDine (Precedex) (4 mcg/mL) bolus injection (Anesthsia) Intravenous, PRN, Starting on Fri10/13/23 at 1014, Until Fri10/13/23 at 1034, Anesthesia Intra-op, Routine Given 10/13/2023 10:14 AM EDT 4 mcg lactated ringers infusion Intravenous, CONTINUOUS PRN, Starting on Fri10/13/23 at 1014, Until Fri10/13/23 at 1034, Anesthesia Intra-op New Bag 10/13/2023 10:14 AM EDT lidocaine (pf) (Xylocaine) (20 mg/mL) 2% injection syringe Intravenous, PRN, Starting on Fri10/13/23 at 1019, Until Fri10/13/23 at 1034, Anesthesia Intra-op, Routine Given 10/13/2023 10:21 AM EDT 50 mg Given 10/13/2023 10:19 AM EDT 50 mg ondansetron (pf) (Zofran) (2 mg/mL) injection Intravenous, PRN, Starting on Fri10/13/23 at 1014, Until Fri10/13/23 at 1034, Anesthesia Intra-op, Routine Given 10/13/2023 10:14 AM EDT 4 mg propofoL (Diprivan) (10 mg/mL) infusion Intravenous, CONTINUOUS PRN, Starting on Fri10/13/23 at 1019, Until Fri10/13/23 at 1034, Anesthesia Intra-op, Routine Rate/Dose Change 10/13/2023 10:24 AM EDT 150 mcg/kg/min 48.96 mL/hr New Bag 10/13/2023 10:19 AM EDT 200 mcg/kg/min 65.28 mL /hr propofoL (Diprivan) 10 mg/mL bolus injection (Anesthesia) Intravenous, PRN, Starting on Fri10/13/23 at 1019, Until Fri10/13/23 at 1034, Anesthesia Intra-op Given 10/13/2023 10:19 AM EDT 50 mg documented in this encounter Care Teams [employer] Helper Relationship Specialty Start Date End Date Candie Skaggs MD [address] [place] [address] PCP - General Family Medicine 03/19/19 documented as of this encounter
--- OUTSIDE RECORDS SUMMARY | 2023-10-19 06:20 | XMS_ITS | Clinical Summary ---
Author Organization [facility] [place] [address] Care Team Providers Care Practice Office Associate Name Role Phone Candie Skaggs MD Primary Care Provider [phone] Allergies Active Allergy Reactions Criticality Noted Date [...] needed for Nausea. 15 tablet 04/15/2022 Active hydrocortisone 2.5 % CreamIndication s:Dermatitis Apply to affected area of the nose twice daily as needed. 30 g 01/24/2023 Active amLODIPine (Norvasc) 5 mg tablet Take 1 tablet by mouth daily. 90 tablet 3 10/13/2023 Active diphenhydrAMINE /aluminum-magne sium hydroxide with simethicone/lid ocaine (BMX) (6.67 mg-0.83 mg-13.33 mg-1.33 mg/mL) oral liquid Take 5 mLs by mouth 3 times daily. 237 mL 3 10/13/2023 Active pantoprazole EC (Protonix) [address] tablet Take 1 tablet by mouth 2 times daily. 90 tablet 3 10/13/2023 Active Active Problems Problem Noted Date Diagnosed Date Hypertensive urgency 10/11/2023 PMR (polymyalgia rheumatica) 04/15/2022 Gastroesophageal reflux disease [...] 06/21/2010 Hypertension GERD (gastroesophageal reflux disease) Hyperlipidemia Encounters Date Type Department Care Team Description 10/14/2023 [place] [phone] Benita Mclean MD Functional dyspepsia 10/13/2023 10:14 AM EDT Anesthesia [place] [address] Guilherme Alvarado MD 10/13/2023 10:00 AM EDT - 10/13/2023 10:45 AM EDT [place] [address] Geovanni Bell MD EGD WITH BIOPSY (WRVU 2.39) 10/13/2023 Orders [place] [address] Benita Mclean MD Functional dyspepsia 10/13/2023 [place] [address] Katharina Martin CMA Request For Record ([facility] - EGD (from 5 or 6 years ago)) 10/11/2023 1:39 PM EDT - 10/13/2023 4:00 PM EDT Hospital Encounter Hematology/Oncolog y Unit Level [address] [place] [address] Karla Faria MD Daniel, Nicholas, DO Etiwy, Muhammad, MD Singh, Gurbakhshish, MD Upper abdominal pain; Hypertensive urgency Discharge Disposition: Home 10/11/2023 Travel from Last 3 Months Immunizations Name Administration Dates Next Due Hepatitis [...] drink = 0.6 oz pur e alcohol) [facility] Utilities Answer Date Recorded In the past 12 months has th e electric, gas, oil, or water company threatened to shut off services in your home? No 10/13/2023 Hunger Vital Sign Answer Date Recorded Within the past 12 months, y ou worried that your food would run out before you got the money to buy more. Never true 10/13/19 Within the past 12 months, t he [...] any time in the past 12 m [facility], were you homeless or living in a jail (including now)? No 10/13/2023 DH IPV Inpatient [...] Sign Reading Time Taken Comments Blood Pressure 165/81 10/13/2023 1:14 PM EDT Pulse 54 10/13/2023 11:33 AM EDT Temperature 36.5 ??C (97.7 ??F) 10/13/2023 11:33 AM E DT Respiratory Rate 18 10/13/2023 11:33 AM EDT Oxygen Saturation 97% 10/13/2023 1:14 PM EDT Inhaled Oxygen Concentration - - Weight 64.4 kg (142 lb) 10/11/2023 1:33 PM EDT Height 154.9 cm (5' 1) 10/11/2023 11:53 PM EDT Body Mass Index 26.83 10/11/2023 1:33 PM EDT Plan of Treatment Upcoming Encounters Date Type Department Care Team (Late st Contact Info) Description 10/27/2023 10:00 AM EDT TH Visit (TeleHealth) Gastroenterology at [facility], [place] [address] Olga Melgar APRN [facility] [place] [address] Health Maintenance Due Date Last Done Comments Advance Directive 11/07/1990 Bone Density Scan 11/07/2000 Zoster vaccine (2 of 3) 07/03/2009 05/08/2009 Pneumoccocal Vaccine: 65+ (2 of 2 - PCV) 07/15/2013 07/15/2012 Tetanus vaccine 07/15/2022 07/15/2012, 02/03/2006 Covid-19 Vaccine (3 - season) 10/18/202212/2021, 12/12/2020 Influenza (Flu) vaccine (1 o f 1 - Influenza standard series) 10/19/2023 12/29/2018 Tdap adult Completed 07/15/2012 Procedures Procedure Name Priority Date/Time Associated Diagnosis Comments GIARDIA/CRYPTOSPORID IUM ANTIGENS ([facility]/APD/[facility]H) Routine 10/13/2023 3:50 PM EDT ECHO COMPLETE Routine 10/13/2023 12:52 PM EDT Hypertensive urgency SURGICAL PATHOLOGY Routine 10/13/2023 10 :26 AM EDT Upper Gi Endoscopy, Biopsy (27416) 10/13/2023 10:13 AM EDT Wt loss UPPER GI ENDOSCOPY Routine 10/13/2023 9: 44 AM EDT MAGNESIUM Routine 10/13/2023 4:07 AM EDT BASIC METABOLIC PANEL Routine 10/13/2023 4:07 AM EDT CBC (WITH DIFF) Routine 10/13/2023 4:07 AM EDT SCAN DOC: TELEMETRY STRIPS 10/12/2023 8:33 PM EDT SCAN DOC: TELEMETRY STRIPS 10/12/2023 8:15 AM EDT HEPATIC FUNCTION PANEL Routine 10/12/2023 5:09 AM EDT PHOSPHORUS Routine 10/12/2023 5:09 AM EDT MAGNESIUM Routine 10/12/2023 5:09 AM EDT BASIC METABOLIC PANEL Routine 10/12/2023 5:09 AM EDT CBC (WITH DIFF) Routine 10/12/2023 5:09 AM EDT SCAN DOC: TELEMETRY STRIPS 10/12/2023 1:46 AM EDT TSH Add-On 10/11/2023 6:17 PM EDT LIPASE STAT Add-On 10/11/2023 6:17 PM EDT TROPONIN-T, HIGH SENSITIVITY 3 HOUR PERFORMABLE STAT 10/11/2023 6:17 PM EDT TROPONIN-T, HIGH SENSITIVITY 1 HOUR PERFORMABLE STAT 10/11/2023 3:[address] ANGIOGRAM CHEST ABDOMEN PELVIS W CONTRAST STAT 10/11/2023 3:44 PM EDT HEMOGLOBIN A1C STAT Add-On 10/11/2023 3:01 PM EDT TROPONIN-T, HIGH SENSITIVITY INITIAL PERFORMABLE STAT 10/11/2023 3:01 PM EDT TROPONIN - SERIES STAT 10/11/2023 3:0 1 PM EDT LIPASE STAT 10/11/2023 3:01 PM EDT HEPATIC FUNCTION PANEL STAT 10/11/2023 3:01 PM EDT BASIC METABOLIC PANEL STAT 10/11/2023 3:01 PM EDT CBC (WITH DIFF) STAT 10/11/2023 3:01 PM EDT URINALYSIS BEAKER MICROSCPIC REFLEX EXAM ([facility]) STAT 10/11/2023 2:54 PM EDT URINALYSIS MICROSCOPIC WITH REFLEX TO CULTURE STAT 10/11/2023 2:54 PM EDT URINALYSIS WITH REFLEX CULTURE STAT 10/11/2023 2:54 PM EDT EKG 12-LEAD STAT 10/11/2023 2:49 PM EDT from Last 3 Months Results * Giardia/Cryptosporidium Antigens ([facility]/CGP/APD/[facility]H) (10/13/2023 3:50 PM EDT) Giardia Antigen Negative Negative 12:31 PM EDT [facility] Cryptosporidium Antigen Negative Negative 10/14/2023 12:31 PM EDT [facility] Stool STOOL SPECIMEN / Unknown Non Blood Collection / Unknown 10/13/2023 3:50 PM EDT 10/13/2023 4:41 PM EDT [facility] - 10/14/2023 12:31 PM EDT Examination for other intestinal parasites requires foreign travel history. Examination for other intestinal parasites requires foreign travel history. Valente Bhatt MD MICROBIOLOGY - GEN ERAL ORDERABLES [facility] [address] * ECHO COMPLETE (10/13/2023 12:52 PM EDT) EF 65 HEARTLAB SYSTEM Anatomical Region Laterality Modality Cardiac Other 10/13/2023 12:1 4 PM EDT Narrative 10/13/2023 1:18 PM EDT [address] [place] [id number] ? Echocardiogram Report Name: NELSY RUFFIN F ?Study Date: 10/13/2023 12:14 PMBP: 160/72 mmHg ? Patient Location: [id number] A : 1935 ? Height: 155 cm ? Account: [id number] Age: 87 yrs ? Weight: 64 kg Gender: Female ?BSA: 1.6 m2 Ordering Physician: MORE OROZCO Performed By: LE Palomares Reason For Study: Hypertensive urgency Exam Location: [facility]. Interpretation Summary 1. The left ventricle is normal in size and systolic function. LVEF 65% by visual estimation. 2. The right ventricle is normal in size and function. Unable to estimate PASP due to insufficient TR jet. RAP estimated at 3 mmHg. 3. The left atrium is moderately dilated. The right atrium is normal. 4. There is no signficant valve disease. 5. Small to moderate circumferential pericardial effusion without evidence for hemodynamic compromise on comprehensive evaluation for such. 6. See body of report for additional details. Although there is no study available for direct comparison, review of patient records indicates the presence of a small pericardial effusion since at least 2010. Procedure Complete-10331. Satisfactory quality. There is sinus bradycardia. Left Ventricle Left ventricle is of normal size. Mildly increased thickness of the basal septum with no obstruction to LV outflow. There is no ventricular septal defect. Left ventricular systolic function is normal. Left ventricular ejection fraction is estimated visually at 65%. There are no segmental wall motion abnormalities. Right Ventricle The right ventricle is of normal size. Right ventricular systolic function is normal. Left Atrium The left atrium is moderately dilated. No abnormality of the interatrial septum is identified. Right Atrium The right atrium is normal. Aortic Valve The aortic valve is tricuspid. There is no aortic stenosis. There is no aortic regurgitation. Mitral Valve There is posterior mitral annular calcification. The mitral valve leaflets are thickened. There is trace mitral regurgitation. Tricuspid Valve The tricuspid valve is structurally and functionally normal. There is trace tricuspid regurgitation. Pulmonic Valve The pulmonic valve appears to be structurally and functionally normal. There is trace pulmonic valve regurgitation. Great Arteries The aortic root is of normal size. No abnormalities are identified. Ascending aorta is normal in size. No abnormalities of the pulmonary artery are identified. Venous Inferior vena cava is normal in size. Inferior vena cava collapse greater than 50% with respiration. Pericardium/Pleural There is a small pericardial effusion. The pericardial effusion is circumferential. A pericardial fat pad is present. There is no evidence of hemodynamic compromise. Hemodynamics Pulmonary artery hypertension could not be assessed due to inadequate tricuspid regurgitation jet. The estimated right atrial pressure is 3mmHg. There is Grade I LV diastolic dysfunction (abnormal relaxation with normal left ventricular filling pressure). ? 2D Measurements ? Volumes ?IVSd: 1.2 cm ? LAV(MOD-bp) Indexed: ?LVIDd: 4.8 cm ?LVIDs: 2.9 cm ?43.2 ml/m2 ? RA A4Cs_phl: 15.1 cm2 ?LVPWd: 0.69 cm ? SV(LVOT): 48.2 ml ?RWT: 0.29 {ratio} ?LV mass(C)d: 152.9 grams ? SI(LVOT): 29.6 ml/m2 ?LV mass(C)dI: 93.8 grams/m2 ?Ao root diam: 2.8 cm ?Ao root diam index: 1.7 ?asc Aorta Diam: 2.9 cm ?LVOT diam: 1.7 cm Doppler LV V1 VTI: 21.0 cm MV E max rajeev: 70.1 cm/sec MV A max rajeev: 93.9 cm/sec MV E/A: 0.75 MV dec time: 0.31 sec Lat Peak E' Rajeev: 4.9 cm/sec E/e' (lat): 14.3 Med Peak E' Rajeev: 6.8 cm/sec E/e' (med): 10.3 E/e' Average: 12.3 I ?WMSI = 1.00 ? % Normal = 100 ?Segments ??Size X - Cannot ?2 - ?4 - ?1-2 ? small Interpret ?1 - Normal ?? Hypokinetic 3 - Akinetic Dyskinetic ?? 3-5 ? moderate 5 - ? 6-14 ?large Aneurysmal ?15-16 ?? diffuse Procedure Note Eri Patino MD - 10/13/2023 [address] [place] [address] Echocardiogram Report Name: CATNELSY Kathy Study Date: 2:14 PMBP: 160/72 mmHg Patient Location: [id number] A : 1935 Height: 155 cm Account: [id number] Age: 87 yrs Weight: 64 kg Gender: Female BSA: 1.6 m2 Ordering Physician: MORE OROZCO Performed By: LE Palomares Reason For Study: Hypertensive urgency Exam Location: [facility]. Interpretation Summary 1. The left ventricle is normal in size and systolic function. LVEF 65% byvisual estimation. 2. The right ventricle is normal in size and function. Unable to estimatePASP due to insufficient TR jet. RAP estimated at 3 mmHg. 3. The left atrium is moderately dilated. The right atrium is normal. 4. There is no signficant valve disease. 5. Small to moderate circumferential pericardial effusion without evidencefor hemodynamic compromise on comprehensive evaluation for such. 6. See body of report for additional details. Although there is no studyavailable for direct comparison, review of patient records indicates the presence ofa small pericardial effusion since at least 2010. Procedure Complete-[id number]. Satisfactory quality. There is sinus bradycardia. Left Ventricle Left ventricle is of normal size. Mildly increased thickness of the basalseptum with no obstruction to LV outflow. There is no ventricular septal defect.Left ventricular systolic function is normal. Left ventricular ejectionfraction is estimated visually at 65%. There are no segmental wall motionabnormalities. Right Ventricle The right ventricle is of normal size. Right ventricular systolic functionis normal. Left Atrium The left atrium is moderately dilated. No abnormality of the interatrialseptum is identified. Right Atrium The right atrium is normal. Aortic Valve The aortic valve is tricuspid. There is no aortic stenosis. There is noaortic regurgitation. Mitral Valve There is posterior mitral annular calcification. The mitral valve leafletsare thickened. There is trace mitral regurgitation. Tricuspid Valve The tricuspid valve is structurally and functionally normal. There istrace tricuspid regurgitation. Pulmonic Valve The pulmonic valve appears to be structurally and functionally normal.There is trace pulmonic valve regurgitation. Great Arteries The aortic root is of normal size. No abnormalities are identified.Ascending aorta is normal in size. No abnormalities of the pulmonary artery areidentified. Venous Inferior vena cava is normal in size. Inferior vena cava collapse greaterthan 50% with respiration. Pericardium/Pleural There is a small pericardial effusion. The pericardial effusion is circumferential. A pericardial fat pad is present. There is no evidenceof hemodynamic compromise. Hemodynamics Pulmonary artery hypertension could not be assessed due to inadequatetricuspid regurgitation jet. The estimated right atrial pressure is 3mmHg. There isGrade I LV diastolic dysfunction (abnormal relaxation with normal left ventricularfilling pressure). 2D Measurements Volumes IVSd: 1.2 cm LAV(MOD-bp)Indexed: LVIDd: 4.8 cm LVIDs: 2.9 cm 43.2 ml/m2 RA A4Cs_phl: 15.1cm2 LVPWd: 0.69 cm SV(LVOT): 48.2ml RWT: 0.29 {ratio} LV mass(C)d: 152.9 grams SI(LVOT): 29.6ml/m2 LV mass(C)dI: 93.8 grams/m2 Ao root diam: 2.8 cm Ao root diam index: 1.7 asc Aorta Diam: 2.9 cm LVOT diam: 1.7 cm Doppler LV V1 VTI: 21.0 cm MV E max rajeev: 70.1 cm/sec MV A max rajeev: 93.9 cm/sec MV E/A: 0.75 MV dec time: 0.31 sec Lat Peak E' Rajeev: 4.9 cm/sec E/e' (lat): 14.3 Med Peak E' Rajeev: 6.8 cm/sec E/e' (med): 10.3 E/e' Average: 12.3 I WMSI = 1.00 % Normal = 100 SegmentsSize X - Cannot 2 - 4 - 1-2small Interpret 1 - Normal Hypokinetic 3 - Akinetic Dyskinetic 3-5moderate 5 - 6-14large Aneurysmal 15-16diffuse More Orozco MD ECHO ORDERABLES * Surgical Pathology (10/13/2023 10:26 AM EDT) Case Report Surgical Pathology Report ? Case: [id number] ? Authorizing Provider: ??Geovanni Bell MD ?Collected: ? 10/13/2023 1026 ? Ordering Location: ? G[facility]enterology at [facility] ?? Received: ?10/13/2023 1251 ? Pathologist: ? Judie Ovalle MD ? Specimens: ?? A) - Esophagus, esophagus at 37cm ? B) - Stomach ? C) - Small Bowel, Duodenum ? 10/17/2023 12:27 PM [facility] Final Diagnosis A. Esophagus, esophagus at 37cm Biopsy: Cardia- and fundic-type mucosa with focal intestinal metaplasia, negative for dysplasia (see Discussion). B. Stomach, Biopsy: Gastric fundic and antral gland mucosa with mild chronic nonspecific gastritis. C. Small Bowel, Duodenum, Biopsy: Duodenal mucosa within normal limits, including preserved villous architecture. 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 10/17/2023 12:27 PM [facility] Additional Studies Task ID IHC/Special Stains Result Comments B1-2 H pylori Negative 10/17/2023 12:27 PM [facility] Disclaimer(s) Formalin-fixed, paraffin-embedded tissue sections are studied using the polymer technique with appropriate positive and negative controls. These IHC studies provide the pathologist with adjunctive diagnostic information. Antibody specificity has been verified by testing antibodies on a series of in-house tissues with known immunohistochemical performance characteristics. The clinical interpretation of any antibody positive staining or its absence is evaluated within the context of clinical presentation, morphology, histopathological criteria and other diagnostic tests. 10/17/2023 12:27 PM [facility] Clinical Information A. Esophagus, esophagus at 37cm Rule out Haque's B. Stomach, Rule out Helicobacter pylori C. Small Bowel, Duodenum, Rule out celiac 10/17/2023 12:27 PM [facility] Gross Description A. Esophagus, esophagus at 37cm. Labeled/Fixative: Esophagus at 37 cm, formalin. Quantity/Size: Three, ranging from 0.2 to 0.3 cm. Tissue Description: Soft, connolly-pink tissues. Sections/Processing: Submitted in toto in 1 cassette labeled A1. B. Stomach, . Labeled/Fixative: Stomach, formalin. Quantity/Size: Five, ranging from 0.3 to 0.5 cm. Tissue Description: Soft, connolly-pink tissues. Sections/Processing: Submitted in toto in 1 cassette labeled B1. C. Small Bowel, Duodenum, . Labeled/Fixative: Small bowel, duodenum, formalin. Quantity/Size: Three, averaging 0.3 cm. Tissue Description: Soft, connolly-pink tissues. Sections/Processing: Submitted in toto in 1 cassette labeled C1. 10/17/2023 12:27 PM EDT [facility] Result Note Routine 10/17/2023 12:27 PM EDT [facility] Tissue ESOPHAGEAL STRUCTURE / Unknown 10/13/2023 10:26 AM EDT 10/13/2023 12:51 PM EDT Comment:Pre-op diagnosis: Wt loss Tissue specimen (specimen) STOMACH STRUCTURE / Unknown 10/13/2023 10:28 AM EDT 10/13/2023 12:51 PM EDT Comment:Pre-op diagnosis: Wt loss Tissue specimen (specimen) DUODENAL STRUCTURE / Unknown 10/13/2023 10:28 AM EDT 10/13/2023 12:51 PM EDT Comment:Pre-op diagnosis: Wt loss Geovanni Bell MD PATHOLOGY/CYTOLOGY O RDERABLES [facility] [place] [address] * UPPER GI ENDOSCOPY (10/13/2023 9:44 AM EDT) UPPER GI ENDOSCOPY [facility] Endoscopy ___ Procedure Date: 10/13/2023 9:44 AM ? Patient Name: Nelsy Ruffin ? Date of : 1935 ? Age: 87 ? Order #: [id number] ? Instrument Name: [id number] ? ___ Procedure: ? Upper GI endoscopy Indications: ? Chronic dyspepsia and GERD; recent ? 8lb weight loss. Providers: ? Benita Mirza, ? Nickolas Nicolas [facility] : [facility]ines: ? Monitored Anesthesia Care Complications: ? No immediate complications. ___ Procedure: ? Pre-Anesthesia Assessment: ? - See the other procedure note for ? documentation of the pre-procedure ? assessment. ? The procedure, indications, ? benefits, risks and alternatives ? were explained to the patient. ? Specifically discussed were ? potential complications including, ? but not limited to, bleeding, ? perforation, infection, missing a ? cancer, and adverse medication ? reactions. The Endoscope was ? introduced through the mouth, and ? advanced to the third part of ? duodenum The upper GI endoscopy was ? accomplished without difficulty. ? The patient tolerated the procedure ? well. ? Findings: ? Esophagogastric landmarks were identified: the Z-line ? was found at 38 cm, the gastroesophageal junction was ? found at 38 cm and the site of hiatal narrowing was ? found at 38 cm from the incisors. ? 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 classified as Haque's stage C0-M1 per Jass ? criteria present at the gastroesophageal junction. ? The maximum longitudinal extent of these mucosal ? changes was 1 cm in length. Biopsies were taken with ? a cold forceps for histology. ? The entire examined stomach was normal. Biopsies were ? taken with a cold forceps for histology. ? The examined duodenum was normal. Biopsies were taken ? with a cold forceps for histology. ? Moderate Sedation: ? Not applicable - See Anesthesia documentation Impression: ?- Esophagogastric landmarks ? identified. ? - Esophageal mucosal changes ? 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 classified as Haque's stage C0-M1 ? per [place] criteria. Biopsied. ? - Normal stomach. Biopsied. ? - Normal examined duodenum. ? Biopsied. Recommendation: ?- Await pathology results. ? - [facility] patient to [facility] ? for ongoing care. ? - Recommend seeing inpatient ? dietitian prior to discharge ? - We will arrange outpatient GI ? follow-up and colonoscopy ? - Continue on PPI indefinitely and ? repeat EGD in 3-5 years for ? Haque's. ? Attending Participation: ? I was present and participated during the entire ? procedure from insertion to removal of the endoscope. ? TachoJerri Bell Geovanni Maciel Ray, 10/13/2023 10:56:41 AM Number of Addenda: 0 Note Initiated On: 10/13/2023 9:44 AM [employer]ATION 10/13/2023 9:44 AM EDT Valente Bhatt MD GENERAL SURGICAL O RDERABLES [employer] * (ABNORMAL) CBC (with Diff) (10/13/2023 4:07 AM EDT) Only the most recent of3 resultswithin the time period is included. White Blood Cell 6.31 4.00 - 9.50 x10(3)/mc L 10/13/2023 4:30 AM EDT [facility] Red Blood Cell 3.68(L) 4.00 - 5.21 x10(6)/mc L 10/13/2023 4:30 AM EDT [facility] Hemoglobin 11.8 11.7 - 15.5 g/dL 10/13/2023 4:30 AM EDT [facility] Hematocrit 34.6(L) 35.7 - 45.8 % 10/13/2023 4:30 AM EDT [facility] Mean Cell Volume 94.0 82.6 - 94.4 fL 10/13/2023 4:30 AM EDT [facility] Mean Cell Hemoglobin 32.1(H) 27.1 - 32.0 pg 10/13/2023 4:30 AM EDT [facility] Mean Cell Hemoglobin Concentration 34.1 31.7 - 35.0 g/dL 10/13/2023 4:30 AM [facility] Platelet 240 145 - 357 x10(3)/mc L 10/13/2023 4:30 AM [facility] Mean Platelet Volume 10.3 7.6 - 12.9 fL 10/13/2023 4:30 AM [facility] RDW Standard Deviation 43.8 37.0 - 46.0 fL 10/13/2023 4:30 AM [facility] RDW coefficient of variation 12.8 11.5 - 14.1 % 10/13/2023 4:30 AM [facility] NRBC% auto 0.0 % 10/13/2023 4:30 AM [facility] NRBC Absolute 0.00 0.00 - 0.00 x10(3)/mc L 10/13/2023 4:30 AM [facility] Neutrophil % 65.4 % 10/13/2023 4:30 AM [facility] Neutrophil Absolute (ANC) - Automated 4.13 1.70 - 6.10 x10(3)/mc L 10/13/2023 4:30 AM [facility] Lymph % 26.1 % 10/13/2023 4:30 AM [facility] Lymph Absolute 1.65 0.90 - 3.20 x10(3)/mc L 10/13/2023 4:30 AM [facility] Monocyte % 6.2 % 10/13/2023 4:30 AM [facility] Monocyte Absolute 0.39 0.30 - 0.90 x10(3)/mc L 10/13/2023 4:30 AM [facility] Eos % 1.6 % 10/13/2023 4:30 AM [facility] Eos Absolute 0.10 0.00 - 0.40 x10(3)/mc L 10/13/2023 4:30 AM [facility] Basophil % 0.5 % 10/13/2023 4:30 AM EDT [facility] Baso Absolute 0.03 0.00 - 0.10 x10(3)/mc L 10/13/2023 4:30 AM EDT [facility] Immature Gran % 0.2 % 4:30 AM EDT [facility] Immature Gran Absolute 0.01 0.00 - 0.04 x10(3)/mc L 10/13/2023 4:30 AM EDT [facility] Blood VENOUS BLOOD SPECIMEN / Unknown IP Care Team Draw / Unknown 10/13/2023 4:07 AM EDT 10/13/2023 4:23 AM EDT More Orozco MD HEMATOLOGY ORDERABLE S Performing Organization Address City/[facility]/ZIP Co de Phone Number [facility] [place] [address] * Magnesium (10/13/2023 4:07 AM EDT) Only the most recent of2 resultswithin the time period is included. Magnesium 0.76 0.69 - 1.07 mMol/L 10/13/2023 4:55 AM EDT [facility] Blood VENOUS BLOOD SPECIMEN / Unknown IP Care Team Draw / Unknown 10/13/2023 4:07 AM EDT 10/13/2023 4:23 AM EDT More Orozco MD CHEMISTRY ORDERABLES Performing Organization Address City/[facility]/ZIP Co de Phone Number [facility] [place] [address] * (ABNORMAL) Basic Metabolic Panel (10/13/2023 4:07 AM EDT) Only the most recent of3 resultswithin the time period is included. Glucose 115 65 - 199 mg/dL 10/13/2023 4:55 AM EDT [facility] Comment:Glucose Concentratio n >=200 mg/dL plus symptoms is consistent with Diabetes Mellitus. Blood Urea Nitrogen 10 8 - 18 mg/dL 10/13/2023 4:55 AM [facility] Creatinine 0.95 0.70 - 1.20 mg/dL 10/13/2023 4:55 AM [facility] Sodium 142 135 - 145 mMol/L 10/13/2023 4:55 AM [facility] Potassium 3.2(L) 3.5 - 5.0 mMol/L 10/13/2023 4:55 AM [facility] Chloride 109(H) 98 - 107 mMol/L 10/13/2023 4:55 AM [facility] Carbon Dioxide 20(L) 22 - 31 mMol/L 10/13/2023 4:55 AM [facility] Anion Gap 13 5 - 15 mMol/L 10/13/2023 4:55 AM [facility] Calcium 9.3 8.5 - 10.5 mg/dL 10/13/2023 4:55 AM [facility] Est Glomerular Filtration Rate - Female 58 mL/min/1. 73 m?? 10/13/2023 4:55 AM [facility] Comment: This patient's estimated GFR was calculated using the 2020 CKD-EPI equation. The estimated GFR can vary from the measured GFR by up to 30% in the absence of rapidly changing kidney function. Assessment of the estimated GFR is not appropriate when creatinine concentrations are rapidly changing. For clinical situations in which a more precise estimate of GFR is necessary, consider alternative methods of GFR estimation such as a 24-hour urine creatinine clearance. Assignment of CKD stage 1 - 5 for patients with an eGFR near the transition point between stages may be based on clinical assessment of muscle mass and symptoms in addition to eGFR. Link: eGFR Calculator [employer] Blood VENOUS BLOOD SPECIMEN / Unknown IP Care Team Draw / Unknown 10/13/2023 4:07 AM EDT 10/13/2023 4:23 AM EDT More Orozco MD CHEMISTRY ORDERABLES [facility] [place] [address] * Scan Doc: Telemetry Strips (10/12/2023 8:33 PM EDT) Only the most recent of3 resultswithin the time period is included. Narrative 10/12/2023 8:33 PM EDT Ordered by an unspecified provider. Scanning Provider MEDIA MGR SCAN EXT O RDR/RSLT * Phosphorus (10/12/2023 5:09 AM EDT) Phosphorus 3.4 2.5 - 4.5 mg/dL 10/12/2023 5:46 AM EDT [facility] Blood VENOUS BLOOD SPECIMEN / Unknown IP Care Team Draw / Unknown 10/12/2023 5:09 AM EDT 10/12/2023 5:17 AM EDT More Orozco MD CHEMISTRY ORDERABLES [facility] [place] [address] * (ABNORMAL) Hepatic Function Panel (10/12/2023 5:09 AM EDT) Only the most recent of2 resultswithin the time period is included. Albumin 3.9 3.2 - 5.2 g/dL 10/12/2023 5:46 AM EDT [facility] Aspartate Aminotransferase 15 <=30 unit/L 10/12/2023 5:46 AM EDT [facility] Alanine Aminotransferase 14 0 - 30 unit/L 10/12/2023 5:46 AM EDT [facility] Alkaline Phosphatase 46 35 - 105 unit/L 10/12/2023 5:46 AM EDT [facility] Bilirubin, Total 1.4(H) <=1.3 mg/dL 10/12/2023 5:46 AM EDT [facility] Bilirubin, Direct 0.2 0.0 - 0.3 mg/dL 10/12/2023 5:46 AM EDT [facility] Protein, Total 6.3 6.1 - 8.0 g/dL 10/12/2023 5:46 AM EDT [facility] Blood VENOUS BLOOD SPECIMEN / Unknown IP Care Team Draw / Unknown 10/12/2023 5:09 AM EDT 10/12/2023 5:17 AM EDT More Orozco MD CHEMISTRY ORDERABLES [facility] [place] [address] * (ABNORMAL) Troponin-T, Joseph Sensitivity 3 Hour (10/11/2023 6:17 PM EDT) Pathologist [facility] Troponin-T, High Sensitivity 15(H) <=14 ng/L 10/11/2023 6:52 PM EDT [facility] Comment: This patient's troponin T concentration was determined using the Matthew 5th Generation troponin T assay. According to the fourth universal definition of myocardial infarction, the term acute myocardial infarction should be used when there is acute myocardial injury with clinical evidence of acute myocardial ischemia and with detection of a rise and/or fall of cardiac troponin values with at least one value above the 99th percentile and at least one of the following: - Symptoms of myocardial ischemia; - New ischemic ECG changes; - Development of pathological Q waves; - Imaging evidence of new loss of viable myocardium or new regional wall motion ?? abnormality in a pattern consistent with an ischemic etiology; - Identification of a coronary thrombus by angiography or autopsy (not for type 2 or 3 ?? MIs) Serial measurement of troponin and the change in troponin concentration over time (delta) is crucial for the diagnosis of acute myocardial infarction. Guidance on the interpretation of the new 5th Generation Troponin T values and the delta troponin value can be found in the [facility] Laboratory Test Catalog Troponin - https://[email or web address]-.testcatalog.org/catalogs/565/files/63683 Reference: Fourth [place] Definition of Myocardial Infarction. Journal of the [place] [employer] 2018;72:0520-3836 Troponin-T, HS 3 hr delta 2 ng/L 10/11/2023 6:52 PM EDT [facility] Comment:The 3 hour Troponin T delta value is the absolute difference between the Troponin T concentrations of the initial and subsequent sample collected between 2 h: 45 min and 6 h following the initial collection Blood VENOUS BLOOD SPECIMEN / Unknown IP Care Team Draw / Unknown 10/11/2023 6:17 PM EDT 10/11/2023 6:23 PM EDT Karla Faria MD CHEMISTRY ORDERABLES Performing Organization Address [facility] de Phone Number [facility] [place] [address] * TSH (10/11/2023 6:17 PM EDT) Thyroid Stimulating Hormone 1.63 0.27 - 4.20 mcIU/mL 10/12/2023 1:15 AM EDT [facility] Comment: Reference Interval (mcIU/mL): ?? Females: ? First Trimester: 0.23-3.88 ? Second Trimester: 0.22-3.90 ? Third Trimester: 0.44-4.66 Blood VENOUS BLOOD SPECIMEN / Unknown IP Care Team Draw / Unknown 10/11/2023 6:17 PM EDT 10/11/2023 6:23 PM EDT More Orozco MD CHEMISTRY ORDERABLES Performing Organization Address [facility] Co de Phone Number [facility] [place] [address] * Lipase (10/11/2023 6:17 PM EDT) Only the most recent of2 resultswithin the time period is included. Lipase 29 0 - 60 unit/L 10/12/2023 1:15 AM EDT [facility] Blood VENOUS BLOOD SPECIMEN / Unknown IP Care Team Draw / Unknown 10/11/2023 6:17 PM EDT 10/11/2023 6:23 PM EDT More Orozco MD CHEMISTRY ORDERABLES Performing Organization Address City/State/[facility] Co de Phone Number [facility] [place] [address] * (ABNORMAL) Troponin-T, High Sensitivity 1 Hour (10/11/2023 3:59 PM EDT) Troponin-T, High Sensitivity 16(H) <=14 ng/L 10/11/2023 4:32 PM EDT [facility] Comment: This patient's troponin T concentration was determined using the Matthew 5th Generation troponin T assay. According to the fourth universal definition of myocardial infarction, the term acute myocardial infarction should be used when there is acute myocardial injury with clinical evidence of acute myocardial ischemia and with detection of a rise and/or fall of cardiac troponin values with at least one value above the 99th percentile and at least one of the following: - Symptoms of myocardial ischemia; - New ischemic ECG changes; - Development of pathological Q waves; - Imaging evidence of new loss of viable myocardium or new regional wall motion ?? abnormality in a pattern consistent with an ischemic etiology; - Identification of a coronary thrombus by angiography or autopsy (not for type 2 or 3 ?? MIs) Serial measurement of troponin and the change in troponin concentration over time (delta) is crucial for the diagnosis of acute myocardial infarction. Guidance on the interpretation of the new 5th Generation Troponin T values and the delta troponin value can be found in the [facility] Laboratory Test Catalog Troponin - https://[email or web address]-.testcatalog.org/catalogs/565/files/51943 Reference: Fourth [place] Definition of Myocardial Infarction. Journal of the [place] [employer] 2018;72:8547-6414 Troponin-T, HS 1 hr delta 1 ng/L 10/11/2023 4:32 PM EDT [facility] Comment:The 1 hour Troponin T delta value is the absolute difference between the Troponin T concentrations of the initial and subsequent sample collected between 45 - 120 minutes following the initial collection. Blood VENOUS BLOOD SPECIMEN / Unknown Venipuncture / Unknown 10/11/2023 3:59 PM EDT 10/11/2023 4:05 PM EDT Karla Faria MD CHEMISTRY ORDERABLES [facility] [place] [address] * CT Angiogram Chest Abdomen Pelvis w Contrast (10/11/2023 3:44 PM EDT) WORKSTATION ID [id number] RAD Anatomical Region Laterality Modality Abdomen, Chest Computed Tomogra phy Impressions 10/11/2023 4:11 PM EDT 1. ??No aortic dissection or acute aortic pathology. 2. ??Scattered mild to moderate atheromatous plaque in the aorta and some branch vessels. 3. ??Small pericardial effusion. 4. ??No acute CT findings in the abdomen or pelvis. 5. ??Colonic diverticulosis. 6. ??Other incidental findings, as described above. 7. ?? Thank you for letting us participate in the care of this patient. ??If you are a health care provider and have any questions regarding this report, please contact the number below. ??For patients who have questions please contact the health care support representative that requested your imaging first. ? Narrative 10/11/2023 4:11 PM EDT EXAMINATION: CT ANGIOGRAM CHEST ABDOMEN PELVIS W CONTRAST CLINICAL HISTORY: chest pain with radiation to back, epigastric pain, LLQ pain TECHNIQUE: Helical CT angiogram of the chest, abdomen and pelvis following the intravenous administration of contrast. . Maximum intensity projection (MIP) were reformatted. 3-D images were generated on an independent workstation. COMPARISON: None pertinent available FINDINGS: VASCULAR FINDINGS Heart: Slightly enlarged. A small low-density pericardial effusion is identified. Thoracic aorta: The thoracic aorta is normal in caliber measuring 3.2 cm in diameter in its mid ascending portion. No dissection or intramural hematoma is identified. Scattered mild to moderate calcified and noncalcified atheromatous plaque is noted. Arch branch vessel origins: Patent. Mild atheromatous plaque is noted in the proximal left subclavian artery. Pulmonary arteries: Not well opacified with contrast. Abdominal aorta: Patent and of normal caliber. No dissection. Scattered [id number] atheromatous plaque is noted. Celiac: Patent. No stenosis. There is mild to moderate scattered atheromatous plaque in the splenic artery. Superior mesenteric artery: Patent. No stenosis. Mild atheromatous plaque is seen. Right renal artery: Patent. No stenosis. Mild atheromatous plaque is seen. Left renal artery: Mild ostial stenosis is identified. Mild atherosclerotic plaque is seen. Inferior mesenteric artery: Patent. No stenosis. Right: Common iliac artery: Patent. No stenosis. Internal iliac artery: Patent. No stenosis. External iliac artery: Patent. No stenosis. Common femoral artery: Patent. No stenosis. Left: Common iliac artery: Patent. No stenosis. Internal iliac artery: Patent. No stenosis. External iliac artery: Patent. No stenosis. Common femoral artery: Patent. No stenosis. NON-VASCULAR FINDINGS Lungs and large airways: Minimal peripheral lung scarring is identified. No honeycombing is identified. No lung consolidation. Patent central airways. Pleura: No pleural effusion or pneumothorax. Mediastinum and twna: Normal. Chest wall: Unremarkable. Liver: Normal size and attenuation without lesions. Bile ducts: Nondilated. Gallbladder: No calcified gallstones. Normal caliber wall. Pancreas: Normal attenuation without ductal dilatation. Spleen: Normal. Adrenals: Normal. Kidneys: Small kidney cysts. No hydronephrosis or urinary tract stone. Urinary Bladder: Normal. Lymph Nodes: No enlarged lymph nodes. Bowel: Scattered diverticula are noted in the colon, especially the sigmoid portion. No diverticulitis is identified. The appendix is not seen. No bowel dilatation or inflammation is identified. Peritoneum and retroperitoneum: No free intraperitoneal air or ascites. Abdominal wall: Normal. Reproductive organs: Degenerating uterine fibroids are seen. The uterus is small. The ovaries are not visualized. No adnexal mass. Osseous structures: There are moderate degenerative changes in the hips and and minimal degenerative changes in the spine spine. No fracture or dislocation is seen. Procedure Note Erlin Saini MD - 10/11/2023 EXAMINATION: CT ANGIOGRAM CHEST ABDOMEN PELVIS W CONTRAST CLINICAL HISTORY: chest pain with radiation to back, epigastric pain, LLQpain TECHNIQUE: Helical CT angiogram of the chest, abdomen and pelvis followingthe intravenous administration of contrast. . Maximum intensity projection(MIP) were reformatted. 3-D images were generated on an independentworkstation. COMPARISON: None pertinent available FINDINGS: VASCULAR FINDINGS Heart: Slightly enlarged. A small low-density pericardial effusion is identified. Thoracic aorta: The thoracic aorta is normal in caliber measuring 3.2 cmin diameter in its mid ascending portion. No dissection or intramuralhematoma is identified. Scattered mild to moderate calcified and noncalcified atheromatous plaqueis noted. Arch branch vessel origins: Patent. Mild atheromatous plaque is noted inthe proximal left subclavian artery. Pulmonary arteries: Not well opacified with contrast. Abdominal aorta: Patent and of normal caliber. No dissection. Scattered [id number] atheromatous plaque is noted. Celiac: Patent. No stenosis. There is mild to moderate scatteredatheromatous plaque in the splenic artery. Superior mesenteric artery: Patent. No stenosis. Mild atheromatous plaqueis seen. Right renal artery: Patent. No stenosis. Mild atheromatous plaque isseen. Left renal artery: Mild ostial stenosis is identified. Mildatherosclerotic plaque is seen. Inferior mesenteric artery: Patent. No stenosis. Right: Common iliac artery: Patent. No stenosis. Internal iliac artery: Patent. No stenosis. External iliac artery: Patent. No stenosis. Common femoral artery: Patent. No stenosis. Left: Common iliac artery: Patent. No stenosis. Internal iliac artery: Patent. No stenosis. External iliac artery: Patent. No stenosis. Common femoral artery: Patent. No stenosis. NON-VASCULAR FINDINGS Lungs and large airways: Minimal peripheral lung scarring is identified.No honeycombing is identified. No lung consolidation. Patent centralairways. Pleura: No pleural effusion or pneumothorax. Mediastinum and twan: Normal. Chest wall: Unremarkable. Liver: Normal size and attenuation without lesions. Bile ducts: Nondilated. Gallbladder: No calcified gallstones. Normal caliber wall. Pancreas: Normal attenuation without ductal dilatation. Spleen: Normal. Adrenals: Normal. Kidneys: Small kidney cysts. No hydronephrosis or urinary tract stone. Urinary Bladder: Normal. Lymph Nodes: No enlarged lymph nodes. Bowel: Scattered diverticula are noted in the colon, especially thesigmoid portion. No diverticulitis is identified. The appendix is not seen. Nobowel dilatation or inflammation is identified. Peritoneum and retroperitoneum: No free intraperitoneal air or ascites. Abdominal wall: Normal. Reproductive organs: Degenerating uterine fibroids are seen. The uterusis small. The ovaries are not visualized. No adnexal mass. Osseous structures: There are moderate degenerative changes in the hipsand and minimal degenerative changes in the spine spine. No fracture ordislocation is seen. IMPRESSION 1. No aortic dissection or acute aortic pathology. 2. Scattered mild to moderate atheromatous plaque in the aorta and somebranch vessels. 3. Small pericardial effusion. 4. No acute CT findings in the abdomen or pelvis. 5. Colonic diverticulosis. 6. Other incidental findings, as described above. 7. Thank you for letting us participate in the care of this patient. If youare a health care provider and have any questions regarding this report,please contact the number below. For patients who have questions please contactthe health care support representative that requested your imaging first. Karla Faria MD IMG CT ORDERABLES * (ABNORMAL) Troponin-T, High Sensitivity (10/11/2023 3:01 PM EDT) Troponin-T, High Sensitivity Initial 17(H) <=14 ng/L 10/11/2023 3:53 PM EDT [facility] Comment: This patient's troponin T concentration was determined using the Matthew 5th Generation troponin T assay. The 99th percentile for Troponin T for this test is 14 ng/L for females, and 22 ng/L for males. According to the fourth universal definition of myocardial infarction, the term acute myocardial infarction should be used when there is acute myocardial injury with clinical evidence of acute myocardial ischemia and with detection of a rise and/or fall of cardiac troponin values with at least one value above the 99th percentile and at least one of the following: - Symptoms of myocardial ischemia; - New ischemic ECG changes; - Development of pathological Q waves; - Imaging evidence of new loss of viable myocardium or new regional wall motion ?? abnormality in a pattern consistent with an ischemic etiology; - Identification of a coronary thrombus by angiography or autopsy (not for type 2 or 3 ?? MIs) Serial measurement of troponin and the change in troponin concentration over time (delta) is crucial for the diagnosis of acute myocardial infarction. Guidance on the interpretation of the new 5th Generation Troponin T values and the delta troponin value can be found in the [facility] Test Catalog Troponin - https://[email or web address]-.testcatalog.org/catalogs/565/files/35789 Reference: Fourth [place] Definition of Myocardial Infarction. Journal of the [place] [employer] 2018;72:0281-1432 Blood VENOUS BLOOD SPECIMEN / Unknown Venipuncture / Unknown 10/11/2023 3:01 PM EDT 10/11/2023 3:09 PM EDT Karla Faria MD CHEMISTRY ORDERABLES [facility] [place] [address] * (ABNORMAL) Hemoglobin A1c (10/11/2023 3:01 PM EDT) Hemoglobin A1c 6.1(H) 4.3 - 5.6 % 10/12/2023 1:06 AM EDT [facility] Comment: Per ADA guidelines, without clear symptoms of hyperglycemia or a random plasma glucose >199 mg/dL, a single abnormal A1c measurement cannot be used to diagnose diabetes mellitus. The diagnosis must be confirmed by either 1) a concurrent abnormal fasting plasma glucose or impaired response to oral glucose tolerance testing, or 2) an additional abnormal A1c, impaired fasting plasma glucose, or impaired response to oral glucose tolerance testing on a different day. A1c results obtained on patients with altered red blood cell turnover may not be mortician supplies sales representative of glycemic control. Reference Interval: 4.3 - 5.6% 5.7 - 6.4%: Consistent with prediabetes >=6.5%: Consistent with diagnosis of diabetes mellitus Estimated Average Glucose 10/12/2023 1:06 AM EDT [facility] Comment:Not Calculated. Blood VENOUS BLOOD SPECIMEN / Unknown Venipuncture / Unknown 10/11/2023 3:01 PM EDT 10/11/2023 3:09 PM EDT Narrative [facility] - 10/12/2023 1:06 AM EDT Estimated average glucose (eAG) is calculated from the equation described in: Malvin HERNANDEZ, Jamal J, Janina R, et al. ??Translating the A1C assay into estimated average glucose values. ??Diabetes Care 2008:31(8):1047-0542. Additional resources are available on the ADA website (diabetes.org). More Orozco MD CHEMISTRY ORDERABLES Performing Organization Address City/[facility]/ZIP Co de Phone Number [facility] [place] [address] * (ABNORMAL) Urinalysis Microscopic Reflex to Culture (10/11/2023 2:54 PM EDT) Bacteria, Urine None None /HPF 3:52 PM EDT [facility] RBC, Urine 5(H) 0 - 4 /HPF 10/11/2023 3:52 PM EDT [facility] WBC, Urine 0 0 - 5 /HPF 10/11/2023 3:52 PM EDT [facility] Squamous Epithelial Cells, Urine 1 <5 /HPF 10/11/2023 3:52 PM EDT [facility] Hyaline Casts, Urine 0 0 - 2 /LPF 10/11/2023 3:52 PM EDT [facility] Comment 10/11/2023 3:52 PM EDT [facility] Comment:Interpret results wi th caution, microscopic results are from a suboptimal specimen. Urine URINE SPECIMEN OBTAINED BY CLEAN CATCH PROCEDURE / Unknown Non Blood Collection / Unknown 10/11/2023 2:54 PM EDT 10/11/2023 3:09 PM EDT Karla Faria MD URINE ORDERABLES Performing Organization Address City/[facility]/ZIP Co de Phone Number [facility] [place] [address] * Urinalysis Microscopic with Reflex to Culture (10/11/2023 2:54 PM EDT) Urine URINE SPECIMEN OBTAINED BY CLEAN CATCH PROCEDURE / Unknown Non Blood Collection / Unknown 10/11/2023 2:54 PM EDT 10/11/2023 3:09 PM EDT Karla Faria MD URINE ORDERABLES [facility] [place] [address] * (ABNORMAL) Urinalysis with reflex Culture (10/11/2023 2:54 PM EDT) Glucose, Urine Dipstick Negative Negative 10/11/2023 3:52 PM EDT [facility] Protein, Urine Dipstick Negative Negative 10/11/2023 3:52 PM EDT [facility] Bilirubin, Urine Dipstick Negative Negative 10/11/2023 3:52 PM EDT [facility] Comment:Clinical correlation required for positive Urine Bilirubin results as false positive may occur with some drugs and drug related products. If a false positive is suspected a serum total bilirubin should be considered if clinically indicated. Urobilinogen, Urine Dipstick Normal Normal, 0.2 mg/dL, 1.0 mg/dL 10/11/2023 3:52 PM EDT [facility] pH, Urine (dipstick) 7.0 5.0 - 8.0 10/11/2023 3:52 PM EDT [facility] Blood, Urine Dipstick Moderate(A) Negative 10/11/2023 3:52 PM EDT [facility] Ketone, Urine Dipstick Negative Negative 10/11/2023 3:52 PM EDT [facility] Nitrite, Urine Dipstick Negative Negative 10/11/2023 3:52 PM EDT [facility] Leukocytes, Urine Dipstick Negative Negative 10/11/2023 3:52 PM EDT [facility] Specific [place] Urine Automated 1.007 1.005 - 1.030 10/11/2023 3:52 PM EDT [facility] Appearance, Urine Dipstick Clear Clear 10/11/2023 3:52 PM EDT [facility] Color, Urine Dipstick Yellow Yellow, Dark Yellow 10/11/2023 3:52 PM EDT [facility] Urine URINE SPECIMEN OBTAINED BY CLEAN CATCH PROCEDURE / Unknown Non Blood Collection / Unknown 10/11/2023 2:54 PM EDT 10/11/2023 3:09 PM EDT Karla Faria MD URINE ORDERABLES [facility] [place] [address] * EKG 12 Lead (10/11/2023 2:49 PM EDT) Ventricular rate 53 BPM MUSE SYSTEM Atrial Rate 53 BPM MUSE SYSTEM P-R Interval 176 ms MUSE SYSTEM QRS Duration 70 ms MUSE SYSTEM Q-T Interval 428 ms MUSE SYSTEM QTC Calculated (Bezet) 401 ms MUSE SYSTEM Calculated P [place] 65 degrees MUSE SYSTEM Calculated R [place] 6 degrees MUSE SYSTEM Calculated T [place] 51 degrees MUSE SYSTEM INTERPRETATION Sinus bradycardia Low voltage QRS Cannot rule out Anteroseptal infarct (cited on or before 21-JUN-2010) Abnormal ECG When compared with ECG of 21-JUN-2010 10:35, Questionable change in initial forces of Anteroseptal leads Confirmed by MD CELIS ARMIN ([id number]) on 10/11/2023 3:30:54 PM MUSE SYSTEM 10/11/2023 2:49 PM EDT 10/11/2023 3:30 PM EDT Karla Faria MD ECG ORDERABLES MUSE SYSTEM from Last 3 Months Advance Directives * Attempt Cardiopulmonary Resuscitation - Inpatient (Latest Code Status on File) Date Activated Date Inactivated Comments 10/11/2023 10:12 PM 10/13/2023 8:02 PM Question Answer Comments Code Status decision made by: Patient Content of discussion: Feels benefits outdevin r isyogesh * Full Code Date Activated Date Inactivated Comments 06/21/2010 5:15 AM 06/21/2010 6:58 PM Question Answer Comments Order Status: Initial Order Does patient have decision m aking capacity? Yes, Order is based on Patients wishes. Care Teams Practice Office Associate Relationship Specialty Start Date End Date Candie Skaggs MD [address] [place] [address] PCP - General Family Medicine 03/19/19
--- OUTSIDE RECORDS SUMMARY | 2023-10-19 06:20 | XMS_ITS | Continuity of Care Document ---
Author Organization [facility] Address [address] [place] [address] Assessment No assessment recorded. Plan of Treatment Reminders Order Date Submit Date Provider Last Modified By Organization Details Last Modified Time Details Appointments hospital follow up 2023 03:30P M Not available Not available Not available Medicare Wellness 40 (Subs) 2023 11:20A M Not available Not available Not available Lab urinalysi s, complete 2023 024 [email or web address] ), [address] [place] [address] [place], [address], 10/15/2023 07:31:06 CMP, serum or plasma 2023 024 RAPHAEL [facility] (Registration ), [address] [place] [address] [place], [address], 10/08/2023 21:31:32 lipase, serum or plasma 2023 024 [email or web address] ([facility] ), [address] [place] [address] [place], [address], 10/15/2023 07:30:38 CBC w/ diff 2023 024 [email or web address] ([facility] ), [address] [place] [address] [place], [address], 10/15/2023 07:30:47 urinalysi s, dipstick 2023 024 [facility], [address] [place] [address], [address], 10/08/2023 15:28:01 magnesium , serum or plasma 2023 024 [email or web address] (Registration ), [address] [place] [address] [place], [address], 10/15/2023 07:30:54 Referral None recorded. Procedures None recorded. Surgeries None recorded. Imaging electroca rdiogram [address], [address] [place] [address], [address], 10/08/2023 17:26:09 Medication Orders simethico ne 80 mg chewable tablet 2023 024 anival [facility], [address] [place] [address], [address], 10/08/2023 15:27:58 pantopraz ole 20 mg tablet,de layed release 2023 024 RAPHAEL [facility], [address] [place] [address], [address], 10/15/2023 07:38:03 Valtrex 500 mg tablet 2023 024 anival [facility], [address] [place], [address], 10/08/2023 15:27:58 Patient TargetsNo targets recorded. Patient InstructionsNo instructions recorded. Reason for Referral Hedis Abstractor Referral for D ysplastic nevus of skin skin survey, atypical nevus L cheek Referring Physician: Candie Skaggs, Family Medicine, Encounter Date: 12/31/2022 Results Created Date Observation Date Name Description Value Unit Range Abnormal Flag Note LastModifiedBy Organization Detail LastModifiedTime 10/08/19 24 10/08/2023 urina lysis , dipst ick Leukocytes Negati ve Not Available [facility] [address] [place], [address], 10/08/2023 15:13:16 10/08/19 24 10/08/2023 urina lysis , dipst ick Nitrite negati ve Not Available [address], [address], 10/08/2023 15:13:16 10/08/19 24 10/08/2023 urina lysis , dipst ick Urobilinogen .2 Not Available [address], [address], 10/08/2023 15:13:16 10/08/19 24 10/08/2023 urina lysis , dipst ick Protein Negati ve Not Available [address], [address], 10/08/2023 15:13:16 10/08/19 24 10/08/2023 urina lysis , dipst ick pH 6.0 Not Available [address], [address], 10/08/2023 15:13:16 10/08/19 24 10/08/2023 urina lysis , dipst ick Blood Non-He molyze d: Modera te Not Available [address], [address], 10/08/2023 15:13:16 10/08/19 24 10/08/2023 urina lysis , dipst ick Specific [place] 1.015 Not Available [address], [address], 10/08/2023 15:13:16 10/08/19 24 10/08/2023 urina lysis , dipst ick Ketone Modera te Not Available [address], [address], 10/08/2023 15:13:16 10/08/19 24 10/08/2023 urina lysis , dipst ick Bilirubin Negati ve Not Available [address], [address], 10/08/2023 15:13:16 10/08/19 24 10/08/2023 urina lysis , dipst ick Glucose Negati ve Not Available [address], [address], 10/08/2023 15:13:16 10/08/19 24 10/08/2023 urina lysis , dipst ick Appearance Clear Not Available [address], [address], 10/08/2023 15:13:16 10/08/19 24 10/08/2023 urina lysis , dipst ick Color Pale Yellow Not Available [address], [address], 10/08/2023 15:13:16 10/08/19 24 10/08/2023 elect rocar diogr am No observ ation record ed. [email or web address] [address], [address], 10/08/2023 17:26:08 10/08/19 elect rocar diogr am No observ ation record ed. [email or web address] Not Available 2023 16:29:35 Result Notes None recorded. Problems Name Problem SNOMED Code Status Onset Date Resolution Date Notes Provider Name and Address Organization Details Recorded Time Hyperlip idemia 87413907 Active 2004 [facility] 4 11:53:59 Gastroes ophageal reflux disease without esophagi tis 467988189 Active 2001 [facility] 4 11:46:37 Lichen planus 6806639 Active 2002 [facility] in [facility] 4 11:54:41 History of disorder of digestiv e system 414761498 Active 2003 Hx of divertic ulitis -- recurren t bouts since 2003 [facility] 4 11:49:07 History of clinical finding in subject 992921597 Completed 200904/07/2009 Not Available [facility] 3 05:36:29 Essentia l hyperten anju 63281433 Active 2004 [facility] 4 11:46:26 Overweig ht 410127792 Active 2013 (BMI 25-29.9) [facility] 4 11:55:29 Herpesvi marci infectio n 51222143 Active 2014 Genital herpes -- L buttock [facility] 4 11:48:00 Haque' s esophagu s 856365585 Active 2014 last endo 11/01 [facility] 4 11:45:08 Anxiety disorder 327166306 Active 2014 [facility] 4 11:10:17 Pain in thoracic spine 806683470 Completed 201511/23/2015 11/16/19 16 - Comments only - Candie Skaggs MD - Muscular , R trap vs rhomboid s. Advised local massage, muscle rubs, heat, etc. Problem Code: M54.9; Problem Code Type: ICD-10; Not Available [facility] 3 05:36:30 Epigastr ic pain 74494381 Completed 201706/06/2017 Problem Code: R10.13; Problem Code Type: ICD-10; Not Available [facility] 3 05:36:30 History of nutritio nal disorder 138069775 Active 2017 Hx of hypokale juana -- likely related to thiazide diuretic but pt [facility] [place] [facility] 4 11:50:25 Prediabe doni 869368401 Active 2018 (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 4 11:57:37 Acute gastroen teritis 36994711 Completed 201803/27/2018 03/22/19 19 - Comments only - Candie Skaggs MD - Resolved . Not Available [facility] 3 05:36:31 Disorder of skin appendag e 756260200 Completed 201804/17/2018 03/22/19 19 - Comments only - Candie Skaggs MD - And cellulit is, empiric coverage for possible fungal infectio n ineffect shilpa. Staph or other bacteria l infectio n seems more likely therefor e. Some sort of contact dermatit is is also in differen tial but less likely. Will treat with cephalex in. May apply over-the -counter hydrocor tisone cream and/or use low-dose Benadryl as needed for itching. Cautione d balbirin g potentia l side effects of latter. 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, chronic since 2019, noted again on CT 01/2021 [facility] 4 11:56:54 Atrophic vaginiti s 86964991 Active 2018 An [facility] 4 11:10:34 General examinat ion of patient Active 2019 An [facility] 4 11:46:54 Thigh pain 08957049 Completed 201911/06/2019 10/06/19 20 - Comments only - 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 1 minute. -Given brief nature of sx will continue to monitor and she is encourag ed to call with any concerns . Problem Code: M79.659; Problem Code Type: ICD-10; Not Available [facility] 3 05:36:31 Heart murmur 13342416 Active 2019 no signif valvular dz 2018 echo An [facility] 4 11:47:32 History of polymyal gale rheumati ca 240603079 Active 2020 dx 02/2020, started predniso ne 20mg qd 02/29/20, off by 2022 An [facility] 4 11:51:47 History of pulmonar y embolus 736539967 Active 2020 and 2020, unprovok ed (2nd occurred 5 days after J&J Covid vaccine) , life-chelsea g anticoag recom'd [facility] 4 11:53:43 Long-ter m current use of anticoag ulant 893181733 Active 2020 [facility] 4 11:54:56 Abdomina l pain 68949814 Completed 202010/21/2020 Problem Code: R10.9; Problem Code Type: ICD-10; Not Available [facility] 3 05:36:32 Melena 2758478 Completed 202011/03/2020 Problem Code: K92.1; Problem Code Type: ICD-10; Not Available [facility] 3 05:36:32 Idiopath ic osteoart hritis 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 Arthriti s, hips, bilatera l [facility] 4 11:54:24 Actinic keratosi s 931222890 Active 2020 distal L nose [facility] 4 11:10:06 Elevated blood-pr essure reading without diagnosi s of hyperten anju 941203242 Active 2020 Labile hyperten anju [facility] 4 11:46:14 Screenin g for osteopor osis Active 2022 [facility] 4 11:57:55 Hearing loss 18835181 Completed 202204/17/2022 Problem Code: H91.90; Problem Code Type: ICD-10; Not Available [facility] 3 05:36:34 Trigger finger of right hand 57279104762 951588 Active 2022 Trigger finger of right ring finger [facility] 4 11:58:33 Lumbosac ral radiculo conrad 5295016 Active 2022 [facility] 4 11:55:12 Pulmonar y embolism 12095218 Completed 202103/12/2022 Problem Code: I26.99; Problem Code Type: ICD-10; Not Available [facility] 3 05:36:43 Divertic ulitis 677464427 Completed 200311/13/2022 Not Available [facility] 3 05:36:43 Pain in right hip joint 42230461813 9102 Completed 202011/13/2022 12/13/19 21 - Comments only - Candei Skaggs MD - will obtain xray of hip although i suspect pain is more muscular in origin. If no evidence of severe DJD, would refer to PT. (otherwi se to ortho). Reviewed basic stretche s she can try meanwhil e. Problem Code: M25.551; Problem Code Type: ICD-10; Not Available [facility] 3 05:36:44 Diplopia 07399650 Completed 201111/16/2015 Problem Code: H53.2; Problem Code Type: ICD-10; Not Available [facility] 3 05:36:44 Dyspnea 926238949 Completed 201703/12/2022 Problem Code: R06.09; Problem Code Type: ICD-10; Not Available [facility] 3 05:36:44 Chronic rhinitis 95494097 Completed 201703/12/2022 Problem Code: J31.0; Problem Code Type: ICD-10; Not Available [facility] 3 05:36:44 Localize d eruption of skin 633698673 Completed 201903/07/2020 Problem Code: R21; Problem Code Type: ICD-10; Not Available [facility] 3 05:36:45 Neoplasm of skin 438409944 Completed 202001/23/2021 Not Available [facility] 3 05:36:45 Hyperten sive disorder 93766935 Completed 200411/13/2022 Not Available [facility] 3 05:36:45 Counseli ng Completed 202003/12/2022 Problem Code: Z71.89; Problem Code Type: ICD-10; Not Available [facility] 3 05:36:46 Pulmonar y embolism 60841076 Completed 201011/08/2014 Problem Code: 415.19; Problem Code Type: ICD-9; Not Available [facility] 3 05:36:47 Dysphagi a 46636030 Completed 201703/12/2022 Problem Code: R13.10; Problem Code Type: ICD-10; Not Available [facility] 3 05:36:47 Obesity 911038808 Completed 201311/13/2022 Problem Code: E66.9; Problem Code Type: ICD-10; Not Available [facility] 3 05:36:47 Greater trochant jeremi pain syndrome 7149066 Completed 201505/23/2017 Problem Code: M70.60; Problem Code Type: ICD-10; Not Available [facility] 3 05:36:48 Long-ter m current use of drug therapy 573898659 Completed 202003/12/2022 Problem Code: Z79.899; Problem Code Type: ICD-10; Not Available [facility] 3 05:36:48 Fatigue 01135367 Completed 202011/13/2022 Problem Code: R53.83; Problem Code Type: ICD-10; Not Available [facility] 3 05:36:49 Essentia l hyperten anju 61389404 Completed 201703/12/2022 Problem Code: I10; Problem Code Type: ICD-10; An miller [facility] 4 11:46:26 Genital herpes simplex 98996353 Completed 201411/13/2022 Not Available [facility] 3 05:36:49 Nicotine dependen ce 28497874 Completed 201003/12/2022 Problem Code: Z87.891; Problem Code Type: ICD-10; Not Available [facility] 3 05:36:49 Lumbosac ral radiculo conrad 2261156 Completed 201902/25/2020 Problem Code: M54.16; Problem Code Type: ICD-10; MICHAEL Reyes [facility]. 4 11:55:12 Divertic ulitis of intestin e 314720038 Completed 200311/13/2022 01/24/20 21 - Comments only - Candie Skaggs MD - and recurren t. Completi ng Abx, sx resolvin g. REviewed general manageme nt strategi es. Problem Code: K57.92; Problem Code Type: ICD-10; Not Available [facility] 3 05:36:51 Pulmonar y embolism 18649692 Completed 202011/13/2022 07/06/19 21 - Comments only - Candie Skaggs MD - Therapeu tic INR, continue current Coumadin with recheck in 1 week. Consider transiti on to Eliquis given availabi lity of reversal agent. Age appropri ate dosing would be 2.5 mg twice daily, starting once INR is less than 2. Problem Code: I26.99; Problem Code Type: ICD-10; Not Available [facility] 3 05:36:52 Pain in lower limb 77115252 Completed 202003/07/2020 Problem Code: M79.606; Problem Code Type: ICD-10; Not Available [facility] 3 05:36:52 Gastroes ophageal reflux disease 598204699 Completed 200111/13/2022 Not Available [facility] 3 05:36:53 Screenin g for disorder Completed 201505/23/2017 Problem Code: Z13.9; Problem Code Type: ICD-10; Not Available [facility] 3 05:36:53 Health conditio n feared but not present 64509709909 9109 Completed 201603/07/2017 Problem Code: Z71.1; Problem Code Type: ICD-10; Not Available [facility] 3 05:36:53 Blood glucose outside referenc e range 522531211 Completed 201811/13/2022 03/12/19 23 - Comments only - Candie Skagsg MD - stable, A1C 6.2. Continue lifestyl e manageme nt. Problem Code: R73.09; Problem Code Type: ICD-10; Not Available [facility] 3 05:36:53 Vomiting 289020309 Completed 202010/16/2020 Problem Code: R11.10; Problem Code Type: ICD-10; Not Available [facility] 3 05:36:54 Pelvic and perineal pain 312630208 Completed 201503/07/2017 Problem Code: R10.2; Problem Code Type: ICD-10; Not Available [facility] 3 05:36:55 Dyspnea 302253509 Completed 201706/06/2017 Problem Code: R06.00; Problem Code Type: ICD-10; Not Available [facility] 05:36:55 Polymyal gale rheumati ca 25173619 Completed 202011/13/2022 04/24/19 22 - Comments only - Candie Skaggs MD - Well-con trolled on very low-dose predniso ne, underlyi gladys DJD may make final wean off predniso ne difficul t. Will review inflamma tory markers likely drawn by consulti gladys physicia n in late March . Continue current 2 to 3 mg a day. Problem Code: M35.3; Problem Code Type: ICD-10; Not Available [facility] 3 05:36:56 Eustachi an tube disorder 52191084 Completed 201511/16/2015 Problem Code: H69.80; Problem Code Type: ICD-10; Not Available [facility] 3 05:36:56 Acute sinusiti s 12259847 Completed 201511/16/2015 Problem Code: J01.90; Problem Code Type: ICD-10; Not Available [facility] 3 05:36:57 History of disorder of digestiv e system 729869824 Completed 201411/13/2022 Problem Code: Z87.19; Problem Code Type: ICD-10; An miller [facility] 4 11:49:07 Blood chemistr y outside referenc e range 661012628 Completed 201706/26/2020 Problem Code: R79.89; Problem Code Type: ICD-10; Not Available [facility] 3 05:36:58 Type 2 diabetes mellitus without complica tion 312603220 Completed 201811/13/2022 04/24/19 22 - Comments only - Candie Skaggs MD - Diet controll ed, due for follow-u p A1c in 1 month. Will review whether this was checked with recent labs. Problem Code: E11.9; Problem Code Type: ICD-10; Not Available [facility] 3 05:36:59 Seborrhe ic keratosi s 556056800 Active 2022 [facility] 4 11:57:59 Chronic dermatit is 60317084 Active 2022 [facility] 4 11:45:32 Problem Notes None recorded. Procedures Surgical History None recorded. Imaging Results Imaging Date Name Status LastModified by Organization Details LastModified Time 10/08/2023 electrocardiogram completed [address], [address], 10/08/2023 17:26:08 Procedure Notes None recorded. Medical Equipment None Reported. Allergies Allergen ID Allergen Name Allergen Category Reaction Reaction Severity Criticality Documentation Date Start Date Code Code System Note Provider Name and Address Organization Details Recorded Time 17746 lisinopri l medicatio n rash moderate Not available 12/27/20222011 98066 RxNorm [facility] 4 11:59:12 65337 codeine medicatio n other moderate Not available 12/27/20222001 2670 RxNorm No react ion enter ed [facility] 4 11:58:58 24369 Norvasc medicatio n other moderate Not available 06/20/20232011 31467 RxNorm face burni ng [facility] 11:59:52 Medications Name Sig Start Date Stop [...] Available Not Available amlodipine 5 mg tablet Take 1 tablet every day by oral route. active [facility] Not Available Not Available No t Available valacyclovi r 500 mg tablet TAKE TWO TABLETS BY MOUTH TWICE A DAY FOR 5 DAYS active Not Available Not Available No t Available Prevacid 30 mg capsule,del ayed release 1 TAB daily 06/07 completed Not Available Not Available Not Available pantoprazol e 20 mg tablet,shahzad yed release TAKE ONE TABLET BY MOUTH EVERY DAY 10/14 completed Not Available Not Available Not Available hydrocortis one 2.5 % topical cream with [...] TIMES A DAY NEEDED FOR BOWEL SPASMS 10/14 completed Not Available Not Available Not Available ranitidine 75 mg tablet Take 1 tab by mouth daily as needed for heartburn 2017 active Not Available Not Available Not Avai lable prednisone 1 mg tablet Take 2 tablet by mouth once a day 03/12 completed Not Available Not Available Not Available nifedipine 10 mg capsule lerner capsule and swallow contents once if needed for blood pressure over 170 active [facility] Not Available Not Available No t Available phenazopyri dine 100 mg tablet TAKE ONE TABLET BY MOUTH THREE TIMES A DAY NEEDED FOR BLADDER INFECTION 10/07 completed Not Available Not Available Not Available pantoprazol e 40 mg tablet,shahzad yed release Take 1 tablet twice a day by oral route. active Not Available Not Available No t Available Hyzaar 100 mg-25 mg tablet Take 1 tab by mouth daily 2018 active Not Available Not Available Not Avai lable neomycin-po lymyxin-dex ameth 3.5 mg/mL-10,00 0 unit/mL-0.1 % eye drops INSTILL 1 DROP INTO LEFT EYE 4 TIMES A DAY FOR 7 DAYS 10/14 completed Not Available Not Available Not Available Cipro 500 mg tablet 1 TAB [...] completed Not Available Not Available Not Available aspirin 81 mg tablet 06/26 completed Not Available Not Available Not Available lisinopril 5 mg tablet 04/11 completed Not Available Not Available Not Available hydrochloro thiazide 25 mg tablet 1 tab daily 07/20 completed Not Available Not Available Not Available Levaquin 500 mg tablet 1 TAB daily 09/04 completed Not Available Not Available Not Available metoprolol succinate ER 25 mg tablet,exte nded release 24 hr TAKE ONE-HALF TABLET BY MOUTH TWICE A DAY active Not Available Not Available No t Available irbesartan 150 mg tablet Take 1 by mouth daily 07/20 completed Not Available Not Available Not Available nifedipine ER 60 mg tablet,exte nded release TAKE 1 TABLET BY MOUTH DAILY active Not Available Not Available No t Available ondansetron 4 mg disintegrat ing tablet DISSOLVE ONE TO TWO TABLETS ON THE TONGUE EVERY 8 HOURS NEEDED FOR NAUSEA AND VOMITING 10/14 completed Not Available Not Available Not Available Coumadin 1 mg tablet 1 TAB [...] TAKE ONE TABLET BY MOUTH EVERY DAY 10/14 completed Not Available Not Available Not Available Lovenox 300 mg/3 mL subcutaneou s [...] Not Available Not Available Not Avai lable K-Tab 20 mEq tablet,exte nded release Take 1 tablet by mouth once daily 2023 active Not Available Not Available Not Avai lable psyllium husk 0.4 gram capsule 10/14 completed Not Available Not Available Not Available magnesium [...] 179 mm[Hg] 79 mm[Hg] ELISHA SCOTT MA [facility] 4 14:13:49 Social History Question Answer Notes LastModified by Organizat ion Details LastModified Time Tobacco Smoking Status Former Smoker SUHAIL MCGEE RN [facility], [facility] 12/31/2022 16:07:55 Do You Have An Advance Directive? Yes Information not available 12/31/2022 When Did You Quit Smoking? 16+yearssinc elastcigaret te Information not available 12/31/2022 Are There Any Guns Present In Your Home? No Information not available 12/31/2022 Do You Have A Medical Power Of Shed Workers Supervisor? Yes Information not available 12/31/2022 Do You [...] Mental Status None recorded. Family History Nothing Reported Notes:*Problem: Family Histo ry: Mother: age 92 [...] Recorded Time Tdap 07/15/2012 completed Not Available [facility] 03:53:28 zoster live 05/08/2009 completed Not Available [facility] 12/27/2022 03:53:29 Influenza, high-dose, trivalent, PF 10/25/2016 completed Not Available [facility] 12/27/2022 03:53:29 Influenza, high-dose, trivalent, PF 12/04/2017 completed Not Available [facility] 12/27/2022 03:53:29 Td(adult) unspecified formulation 02/03/2006 completed Not Available [facility] 12/27/2022 03:53:29 Influenza, split virus, trivalent, preservative 2014 completed Not Available [facility] 12/27/2022 03:53:30 Influenza, split virus, trivalent, preservative 11/16/2015 completed Not Available [facility] 12/27/2022 03:53:30 Influenza, high-dose, quadrivalent, PF 12/15/2019 completed Not Available [facility] 12/27/2022 03:53:31 COVID-19, mRNA, LNP-S, PF, 100 mcg/0.5mL dose or 50 mcg/0.25mL dose 04/27/2021 completed Not Available [facility] 12/27/2022 03:53:31 COVID-19 vaccine, vector-nr, rS-Ad26, PF, 0.5 mL 06/13/2020 completed Not Available [facility] 12/27/2022 03:53:32 COVID-19 vaccine, vector-nr, rS-Ad26, PF, 0.5 mL 12/12/2020 completed Not Available [facility] 12/27/2022 03:53:32 Pneumococcal conjugate PCV20, polysaccharide VAG399 conjugate, adjuvant, PF 04/20/2022 completed Not Available [facility] 12/27/2022 03:53:32 COVID-19, mRNA, LNP-S, PF, 50 mcg/0.5 mL dose 01/17/2022 completed Not Available [facility] 12/27/2022 03:53:32 pneumococcal polysaccharide PPV23 07/15/2012 completed Not Available [facility] 2022 03:53:33 Hep B, unspecified formulation 05/08/2009 completed Not Available [facility] 12/27/2022 03:53:33 Hep A, unspecified formulation 10/14/2014 completed Not Available [facility] 12/27/2022 03:53:33 Hep A, unspecified formulation 02/03/2006 completed Not Available [facility] 12/27/2022 03:53:33 influenza, unspecified formulation 11/27/2001 completed Not Available [facility] 12/27/2022 03:53:34 influenza, unspecified formulation 11/29/2009 completed Not Available [facility] 12/27/2022 03:53:34 influenza, unspecified formulation 12/11/2007 completed Not Available [facility] 12/27/2022 03:53:34 influenza, unspecified formulation 12/11/2011 completed Not Available [facility] 12/27/2022 03:53:34 influenza, unspecified formulation 12/28/2021 completed Not Available [facility] 12/27/2022 03:53:34 influenza, unspecified formulation 01/02/2006 completed Not Available [facility] 12/27/2022 03:53:34 influenza, unspecified formulation 01/07/2003 completed Not Available [facility] 12/27/2022 03:53:34 influenza, unspecified formulation 01/25/2005 completed Not Available [facility] 12/27/2022 03:53:35 influenza, unspecified formulation 01/25/2013 completed Not Available [facility] 12/27/2022 03:53:35 polio, unspecified formulation 03/10/2006 completed Not Available [facility] 12/27/2022 03:53:35 polio, unspecified formulation 09/08/2006 completed Not Available [facility] 12/27/2022 03:53:35 polio, unspecified formulation 02/03/2006 completed Not Available [facility] 12/27/2022 03:53:35 typhoid, unspecified formulation 10/14/2014 completed Not Available [facility] 12/27/2022 03:53:36 typhoid, unspecified formulation 02/03/2006 completed Not Available [facility] 12/27/2022 03:53:36 influenza, unspecified formulation 12/18/2022 completed LINDEN BELL, [facility] 12/31/2022 16:14:04 SARS-COV-2 (COVID-19) vaccine, UNSPECIFIED 12/18/2022 completed LINDEN BELL, [facility] 12/31/2022 16:14:46 Past Encounters Encounter ID Performer Location Encounter Start Date Encounter Closed Date Diagnosis/Indication Diagnosis SNOMED-CT Code Diagnosis ICD10 Code [id number] Zee Mott PA-C [facility] [address] [place] [address] 10/08/2023 13:46:51 10/08/2023 15:00:54 Herpesvirus infection 28695073 B00.9 Epigastric pain 97147659 R10.13 Abdominal bloating 85368 9008 R14.0 Hypomagnesemia 097048685 E83.42 [address] microscopic hematuria [id number] 7505946 R31.21 Increased blood pressure 62411801 R03.0 Health Concerns Section Related Observation LastModified by Organization Detai ls LastModified Time None Recorded Concern Status LastModified by Organization Details LastModified Time None Recorded Payers Encounter Date Sequence Insurance Name Policy Number Policy Baez Covered Member ID Baez Member ID Guarantor Name 10/08/2023 1 [place]ICARE [place] [employer] Abby Chavez Laly [id number] Abby Ruffin Notes Date Note Type [...] hemoptysis. She has appt with GI in [place] at unknown time in the future. [address], [place], [address], [facility]. 10/08/2023 17:46:24 OBGyn Episode No OBEpisode recorded.
--- OUTSIDE RECORDS SUMMARY | 2023-10-19 06:20 | XMS_ITS | Data Portability ---
Author Organization [place] - [facility], [facility] Address [place] [address] Assessment Encounter Date Assessment Date Assessment LastModified [...] reduce health risks and promote healthy living. [email or web address] Not available 12/31/2022 16:53:25 Plan of Treatment Reminders Order Date Submit Date Provider Last Modified By Organization Details Last Modified Time Details Appointments hospital follow up 2023 03:30P M Not available Not available Not available Medicare Wellness 40 (Subs) 2023 11:20A M Not available Not available Not available Lab urinalysi s, complete 2023 024 [email or web address] [facility] (Registration ), [facility] [place], [address], 10/15/2023 07:31:06 CMP, serum or plasma 2023 024 [email or web address] [facility] (Registration ), [address] [place] [address] [place], [address], 10/08/2023 21:31:32 lipase, serum or plasma [email or web address] [facility] (Registration ), [address] [place] [address] [place], [address], 10/15/2023 07:30:38 CBC w/ diff [email or web address] [facility] (Registration ), [address] [place] [address] [place], [address], 10/15/2023 07:30:47 urinalysi s, dipstick 2023 024 [facility], [address] [place] [address], [id number], 10/08/2023 15:28:01 magnesium , serum or plasma [address] Laboratory (Registration ), [address] [place] [address] [place], [address], 10/15/2023 07:30:54 Referral dermatolo gist referral [email or web address] ([facility]), [address] [place], [address], 02/02/2023 18:26:04 Procedures None recorded. Surgeries None recorded. Imaging electroca rdiogram [address], [address] [place] [address], [id number], 10/08/2023 17:26:09 Medication Orders K-Tab 20 mEq tablet,ex tended release 2022 023 [email or web address] [facility], [address] [place], [address], 10/14/2023 11:12:25 Zetia 10 mg tablet 2022 023 [email or web address] [facility], [address] [place] [address], [address], 10/15/2023 07:49:34 simethico ne 80 mg chewable tablet 2023 024 anival [facility], [address] [place], [address], 10/08/2023 15:27:58 pantopraz ole 20 mg tablet,de layed release 2023 024 [email or web address] [facility], [address] [place] [address], [address], 10/15/2023 07:38:03 Valtrex 500 mg tablet 2023 024 anival [facility], [address] [place], [address], 10/08/2023 15:27:58 Patient TargetsNo targets recorded. Patient Instructions Encounter Date Encounter Id Patient Instructions Last Modified By Organization Details Last Modified Time 12/31/2022 [id number] Discussed and explained advance directives such as standard forms to the {{patient caregiv er patient and caregiver}}. Face to face discussion lasted for a duration of ___ minutes. 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, atypical nevus L cheek Referring Physician: Kumar Schultz, Family Medicine, Encounter Date: 12/31/2022 Results Created Date Observation Date Name Description Value Unit Range Abnormal Flag Note LastModifiedBy Organization Detail LastModifiedTime 12/24/1912/23/2022 lipid panel , blood cholesterol, total, serum 258 mg/dL <200 high Not Available Not Available 09/19/2023 20:47:30 12/24/1912/23/2022 lipid panel , blood HDL 52 mg/dL 40-60 Not Available Not Availa ble 09/19/2023 20:47:30 12/24/19 23 12/23/2022 lipid panel , blood LDL 179 mg/dL <100 high Not Available Not Availa ble 09/19/2023 20:47:30 12/24/19 23 12/23/2022 lipid panel , blood triglyceride , 12H fasting, qn, serum or plasma 135 mg/dL <150 Not Available Not Available 03/2023 20:47:30 12/24/19 23 12/23/2022 HbA1c (hemo globi n A1c), blood HbA1C (hemoglobin A1C), blood 6.1 % <5.7 high Not Available Not Available 09/19/2023 20:47:29 12/24/1912/23/2022 gluco se, QN [mass /volu me], blood glucose ser 114 mg/dL 74-106 high Not Available [facility] [address], [place], [address], 09/19/2023 20:47:29 12/24/19 23 12/23/2022 CMP, serum or plasm a aniongap 10.6 mmol/ L 3-11 normal Not Available Not Available 09/19/19 20:47:26 12/24/19 23 12/23/2022 CMP, serum or plasm a BUN (blood urea nitrogen), serum or plasma 19 mg/dL 7-18 high Not Available Not Available 03/2023 20:47:26 12/24/19 23 12/23/2022 CMP, serum or plasm a calcium, qn, serum or plasma 9.5 mg/dL 8.5-10 .1 normal Not Available Not Available 09/19/2023 20:47:26 12/24/19 23 12/23/2022 CMP, serum or plasm a chloride, serum or plasma 104 mmol/ L 98-107 normal Not Available Not Available 09/19/19 20:47:26 12/24/19 23 12/23/2022 CMP, serum or plasm a CO2, (carbon dioxide), total, serum or plasma 27.4 mmol/ L 21.0-3 2.0 normal Not Available Not Available 09/19/2023 20:47:26 12/24/19 12/23/2022 CMP, serum or plasm a creatinine, [...] 10_3/ uL 4.4-10 .8 normal Not Available [address] [place], [address] 03/21/2023 11:35:40 03/21/19 24 03/21/2023 COMPL ETE BLOOD COUNT W/DIF F RBC 3.74 10_6/ uL 3.93-5 .22 low Not Available [address] [place], [address] 03/21/2023 11:35:40 03/21/19 24 03/21/2023 COMPL ETE BLOOD COUNT W/DIF F HGB 11.8 g/dL 11.2-1 5.7 normal Not Available [address] [place], [address] 03/21/2023 11:35:40 03/21/19 24 03/21/2023 COMPL ETE BLOOD COUNT W/DIF F HCT 35.1 % 36.0-4 6.0 low Not Available [address] [place], [address] 03/21/2023 11:35:40 03/21/19 24 03/21/2023 COMPL ETE BLOOD COUNT W/DIF F MCV 94 fL 80-95 normal Not Available [address] [place], [address] 03/21/2023 11:35:40 03/21/19 24 03/21/2023 COMPL ETE BLOOD COUNT W/DIF F MCH 31.6 pg 27.0-3 3.0 normal Not Available [address] [place], [address] 03/21/2023 11:35:40 03/21/19 24 03/21/2023 COMPL ETE BLOOD COUNT W/DIF F MCHC 33.6 % 32.0-3 6.0 normal Not Available [address] [place], [address] 03/21/2023 11:35:40 03/21/19 24 03/21/2023 COMPL ETE BLOOD COUNT W/DIF F RDW 13.0 % 11.7-1 4.6 normal Not Available [address] [place], [address] 03/21/2023 11:35:40 03/21/19 24 03/21/2023 COMPL ETE BLOOD COUNT W/DIF F platelet count 278 10_3/ uL 130-40 0 normal Not Available [address] [place], [address] 03/21/2023 11:35:40 03/21/19 24 03/21/2023 COMPL ETE BLOOD COUNT W/DIF F MPV 9.5 fL 8.0-11 .0 normal Not Available [address] [place], [address] 03/21/2023 11:35:40 03/21/19 24 03/21/2023 COMPL ETE BLOOD COUNT W/DIF F neutrophils % 58.0 Not Available [place] [address] [place], [address] 03/21/2023 11:35:40 03/21/19 24 03/21/2023 COMPL ETE BLOOD COUNT W/DIF F lymphocytes % 32.1 Not Available [facility] [address] [place], [address] 03/21/2023 11:35:40 03/21/19 24 03/21/2023 COMPL ETE BLOOD COUNT W/DIF F monocytes % 5.6 Not Available [address] [place], [address] 03/21/2023 11:35:40 03/21/19 24 03/21/2023 COMPL ETE BLOOD COUNT W/DIF F eosinophils % 3.1 Not Available [address] [place], [address] 03/21/2023 11:35:40 03/21/19 24 03/21/2023 COMPL ETE BLOOD COUNT W/DIF F basophils % 1.0 Not Available [address] [place], [address] 03/21/2023 11:35:40 03/21/19 24 03/21/2023 COMPL ETE BLOOD COUNT W/DIF F immature grans % 0.2 Not Available [address] [place], [address] 03/21/2023 11:35:40 03/21/19 24 03/21/2023 COMPL ETE BLOOD COUNT W/DIF F nucleated RBC 0.0 % 0.0-0. 3 normal Not Available [address] [place], [address] 03/21/2023 11:35:40 03/21/19 24 03/21/2023 COMPL ETE BLOOD COUNT W/DIF F absolute neutrophil count 3.00 10_3/ uL 1.2-6. 7 normal Not Available [address] [place], [address] 03/21/2023 11:35:40 03/21/19 24 03/21/2023 COMPL ETE BLOOD COUNT W/DIF F absolute lymphocyte count 1.66 10_3/ uL 1.2-3. 4 normal Not Available [address] [place], [address] 03/21/2023 11:35:40 03/21/19 24 03/21/2023 COMPL ETE BLOOD COUNT W/DIF F absolute monocyte count 0.29 10_3/ uL 0.1-0. 8 normal Not Available [address] [place], [address] 03/21/2023 11:35:40 03/21/19 24 03/21/2023 COMPL ETE BLOOD COUNT W/DIF F absolute eosinophil count 0.16 10_3/ uL 0.0-0. 7 normal Not Available [address] [place], [address] 03/21/2023 11:35:40 03/21/19 24 03/21/2023 COMPL ETE BLOOD COUNT W/DIF F absolute basophil count 0.05 10_3/ uL 0.0-0. 2 normal Not Available [address] [place], [address] 03/21/2023 11:35:40 03/21/19 24 03/21/2023 D-DIM ER D-dimer 668 NG/ml feu <500 high *Lite ratur e suppo rts the exclu anju of DVT and/o r PE with a resul t less than 500 ng/ml FEU with this metho d.* Not Available [address] [place], [address] 03/21/2023 12:04:43 03/21/19 24 03/21/2023 HEMOG LOBIN A1C hemoglobin A1C 6.2 % <5.7 high Refer ence Range s <5.7 Cristin l 5.7-6 .4% Predi abete s 6.5% or great er Diagn ostic for diabe doni (if confi rmed) Refer ences : 1. Ameri can Diabe doni Assoc iatio n. Clas sific ation and Diagn osis of Diabe doni. Diabe doni Care 2018 2(Sup pleme nt 1):S1 3-s28 . Not Available [address] [place], [address] 03/21/2023 12:11:43 03/21/19 24 03/21/2023 VITAM IN D 25 TOTAL vitamin D 25 total 30.9 NG/mL 30-100 normal Refer ence Guide lines : Defic ient: <10 ng/ml Insuf ficie nt: 10-30 ng/ml Suffi cient : 30-10 0 ng/ml Toxic : >100 ng/ml Not Available [address] [place], [address] 03/21/2023 12:34:45 03/21/19 24 03/21/2023 COMPR EHENS DEANDRE METAB OLIC PANEL calcium 9.3 mg/dL 8.5-10 .1 normal Not Available [address] [place], [address] 03/21/2023 12:58:51 03/21/19 24 03/21/2023 COMPR EHENS DEANDRE METAB OLIC PANEL glucose 115 mg/dL 74-106 high Not Available Leonie osullivan [address] [place], [address] 03/21/2023 12:58:51 03/21/19 24 03/21/2023 COMPR EHENS DEANDRE METAB OLIC PANEL BUN 19 mg/dL 7-18 high Not Available Leonie osullivan [address] [place], [address] 03/21/2023 12:58:51 03/21/19 24 03/21/2023 COMPR EHENS DEANDRE METAB OLIC PANEL creatinine 0.9 mg/dL 0.55-1 .02 normal Not Available [address] [place], [address] 03/21/2023 12:58:51 03/21/19 24 03/21/2023 COMPR EHENS DEANDRE METAB OLIC PANEL estimated GFR 61.87 mL/min /1.73m 2 The eGFR is calcu lated from a serum creat inine using the CKD-E PI 2020 equat ion. Other varia bles requi red for the equat ion are gende r and age; this equat ion does not inclu de a race coeff icien t. This equat ion has simil ar overa ll perfo rmanc e to previ ous equat ions excep t value s may diffe r, in parti cular , in patie nts with highe r value s of eGFR and young er-ag ed adult s. Not Available [address] [place], [address] 03/21/2023 12:58:51 03/21/19 24 03/21/2023 COMPR EHENS DEANDRE METAB OLIC PANEL total protein 7.2 g/dL 6.4-8. 2 normal Not Available [address] [place], [address] 03/21/2023 12:58:51 03/21/19 24 03/21/2023 COMPR EHENS DEANDRE METAB OLIC PANEL albumin 3.5 g/dL 3.4-5. 0 normal Not Available [address] [place], [address] 03/21/2023 12:58:51 03/21/19 24 03/21/2023 COMPR EHENS DEANDRE METAB OLIC PANEL bilirubin, total 0.8 mg/dL 0.2-1. 0 normal Not Available [address] [place], [address] 03/21/2023 12:58:51 03/21/19 24 03/21/2023 COMPR EHENS DEANDRE METAB OLIC PANEL alk phos 48 U/L 46-116 normal Not Available [address] [place], [address] 03/21/2023 12:58:51 03/21/19 24 03/21/2023 COMPR EHENS DEANDRE METAB OLIC PANEL sodium 143 mmol/ L 136-14 5 normal Not Available [address] [place], [address] 03/21/2023 12:58:51 03/21/19 24 03/21/2023 COMPR EHENS DEANDRE METAB OLIC PANEL potassium 3.4 mmol/ L 3.5-5. 1 low Not Available [address] [place], [address] 03/21/2023 12:58:51 03/21/19 24 03/21/2023 COMPR EHENS DEANDRE METAB OLIC PANEL chloride 106 mmol/ L 98-107 normal Not Available [address] [place], [address] 03/21/2023 12:58:51 03/21/19 24 03/21/2023 COMPR EHENS DEANDRE METAB OLIC PANEL CO2 29.2 mmol/ L 21.0-3 2.0 normal Not Available [address] [place], [address] 03/21/2023 12:58:51 03/21/19 24 03/21/2023 COMPR EHENS DEANDRE METAB OLIC PANEL anion gap 7.8 mmol/ L 3-11 normal Not Available [address] [place], [address] 03/21/2023 12:58:51 03/21/19 24 03/21/2023 COMPR EHENS DEANDRE METAB OLIC PANEL AST 14 U/L 15-37 low Not Available Leonie [address] [place], [address] 03/21/2023 12:58:51 03/21/19 24 03/21/2023 COMPR EHENS DEANDRE METAB OLIC PANEL ALT 22 U/L 14-59 normal Not Available Leonie [address] [place], [address] 03/21/2023 12:58:51 03/21/19 24 03/21/2023 URIC ACID uric acid 7.4 mg/dL 2.6-6. 0 high Not Available [address] [place], [address] 03/21/2023 12:58:51 03/21/19 24 03/21/2023 LIPID 2 cholesterol 300 mg/dL <200 high Not Available [address] [place], [address] 03/21/2023 12:58:52 03/21/19 24 03/21/2023 LIPID 2 triglyceride 138 mg/dL <150 Not Available [address] [place], [address] 03/21/2023 12:58:52 03/21/19 24 03/21/2023 LIPID 2 HDL cholesterol 61 mg/dL 40-60 Not Available [facility] [address] [place], [address] 03/21/2023 12:58:52 03/21/19 24 03/21/2023 LIPID 2 calculated LDL 212 mg/dL <100 high Natio nal Angela stero l Educa tion Progr am (NCEP -ATPI II) class ifica tions : Angela stero l <200 mg/dL Candelaria able Angela stero l 200-2 39 mg/dL Borde rline High Angela stero l >or=2 40 mg/dL High HDL <40 mg/dL Low HDL >or=6 0 mg/dL High LDL <100 mg/dL Optim al LDL 100-1 29 mg/dL Near Optim al/Ab ove Optim al LDL 130-1 59 mg/dL Borde rline High LDL 160-1 89 mg/dL High LDL >or=1 90 mg/dL Very High *The above refer ence range is for adult s 18 years or older . Not Available [address] [place], [address] 03/21/2023 12:58:52 03/21/1903/21/2023 AMYLA SE amylase 47 U/L 25-115 normal Not Available Leonie [address] [place], [address] 03/21/2023 12:58:52 03/21/19 24 03/21/2023 DEMETRIS TIN ferritin 92 NG/mL 8-252 normal Not Available [address] [place], [address] 03/21/2023 12:58:53 03/21/1903/21/2023 TSH TSH 3.03 uIU/m L 0.36-3 .74 normal NOTE: Supra -phys iolog ic doses of Bioti n(B7) may cause false negat deandre resul ts. Not Available [address] [place], [address] 03/21/2023 12:58:53 03/21/19 24 03/21/2023 FREE T4 free T4 0.87 NG/dL 0.76-1 .46 normal Not Available [address] [place], [address] 03/21/2023 12:58:53 03/21/19 24 03/21/2023 VITAM IN B12 vitamin B12 435 pg/mL 193-98 6 normal Not Available [address] [place], [address] 03/21/2023 12:58:54 03/21/19 24 03/21/2023 FOLAT E folate 16.7 NG/mL 8.6-20 .0 normal Not Available [address] [place], [address] 03/21/2023 12:58:54 03/21/19 24 03/21/2023 LIPAS E lipase 35 U/L 16-77 normal Not Available Leonie osullivan [address] [place], [address] 03/21/2023 12:58:55 03/21/19 24 03/21/2023 IRON/ IBCT iron 81 ug/dL 50-170 normal Not Available Leonie osullivan [address] [place], [address] 03/21/2023 12:59:50 03/21/19 24 03/21/2023 IRON/ IBCT total iron binding capacity 285 ug/dL 250-45 0 normal Not Available [address] [place], [address] 03/21/2023 12:59:50 03/21/19 24 03/21/2023 IRON/ IBCT transferrin sat 28 % 15-50 normal Not Available Prudencio hurt [address] [place], [address] 03/21/2023 12:59:50 03/21/19 24 03/21/2023 CRP, HIGH SENSI TIVIT Y CRP, high sensitivity 1.75 mg/L see note Refer ence Range : Low Risk: <1.0 mg/L Preston ge Risk: 1.0 - 3.0 mg/L High Risk: >3.0 mg/L Indet ermin ate*: >10.0 mg/L *May be an indic ation of anoth er sourc e of infla mmati on or infec tion Test perfo rmed or refer red by [facility] [address], [place] [address] Not Available [address] [place], [address] 03/24/2023 15:37:26 03/21/19 24 03/21/2023 CA 125 Ca 125 9 U/mL <30 NOTE: Serum CA 125 eugenio ntrat ion shoul d not be inter prete d as absol estee evide nce for the prese nce or absen ce of kristen ramirez se. Assay ed on Sieme ns ADVIA Centa ur XPT using chemi lumin escen t techn ology . Value s obtai boris by using diffe rent assay metho ds canno t be used inter guevara eably . Test perfo rmed or refer red by [facility] [address], [place] [facility] [place] [address] Not Available [address] [place], [address] 03/24/2023 15:37:26 03/21/19 24 03/24/2023 LYME AB W RFLX TO LYME CONFI RM lyme Ab W rflx to lyme confirm Negati ve negati ve Test perfo rmed or refer red by [facility] [address], [facility] [address] Not Available [address] [place], [address] 03/24/2023 15:37:27 03/21/19 24 03/21/2023 HOMOC YSTEI NE homocysteine 13.2 umol/ L 5.0-13 .9 Refer ence range may not apply to non-f astin g sampl es. It is not recom otto d that EDTA plasm a and serum from the same patie nt be used inter guevara eably . Serum eugenio ntrat ions have been obser yaz to be up to 10% highe r than EDTA plasm a. Refer ence range may not apply to serum resul ts. Test perfo rmed or refer red by [facility] [address], [place] [facility] [place] [address] Not Available [address] [facility] [place], [address] 03/24/2023 15:37:27 03/21/19 24 03/21/2023 PARAT HYROI D HORMO NE,IN TACT parathyroid hormone,inta ct 48 pg/mL 19- Test perfo rmed or refer red by [facility] [address], [place] [address] Not Available [address] [place], [address] 03/24/2023 15:37:28 03/21/19 24 03/24/2023 ELECT ROPHO RESIS , SERUM total protein 6.8 g/dL 6.3-8. 2 Not Available [address] [place], [address] 03/24/2023 15:37:28 03/21/19 24 03/24/2023 ELECT ROPHO RESIS , SERUM albumin 60.9 % 55.8-6 6.1 Not Available [address] [place], [address] 03/24/2023 15:37:28 03/21/19 24 03/24/2023 ELECT ROPHO RESIS , SERUM alpha 1 4.2 % 2.9-4. 9 Not Available [address] [facility] [place], [address] 03/24/2023 15:37:28 03/21/19 24 03/24/2023 ELECT ROPHO RESIS , SERUM alpha 2 10.4 % 7.1-11 .8 Not Available [address] [place], [address] 03/24/2023 15:37:28 03/21/19 24 03/24/2023 ELECT ROPHO RESIS , SERUM beta 11.8 % 8.4-13 .1 Not Available [address] [place] [facility] [place], [address] 03/24/2023 15:37:28 03/21/19 24 03/24/2023 ELECT ROPHO RESIS , SERUM gamma 12.7 % 11.1-1 8.8 Not Available [address] [facility] [place], [address] 03/24/2023 15:37:28 03/21/19 24 03/24/2023 ELECT ROPHO RESIS , SERUM comment SEE BELOW RESUL T: No appar ent monoc lonal prote in seen on serum elect ropho resis See scann ed/morales pplem entar y repor t. Test perfo rmed or refer red by [facility] [address] [place] [address] Not Available [address] [place], [address] 03/24/2023 15:37:28 03/21/19 24 03/24/2023 ELECT ROPHO RESIS , SERUM albumin g/dL 4.1 g/dL 3.6-5. 2 Not Available [address] [place], [address] 03/24/2023 15:37:28 03/21/19 24 03/24/2023 ELECT ROPHO RESIS , SERUM alpha 1 g/dL 0.30 g/dL 0.15-0 .40 Not Available [address] [place], [address] 03/24/2023 15:37:28 03/21/19 24 03/24/2023 ELECT ROPHO RESIS , SERUM alpha 2 g/dL 0.70 g/dL 0.50-1 .00 Not Available [address] [place], [address] 03/24/2023 15:37:28 03/21/19 24 03/24/2023 ELECT ROPHO RESIS , SERUM beta g/dL 0.80 g/dL 0.60-1 .20 Not Available [address] [place] [facility] [place], [address] 03/24/2023 15:37:28 03/21/19 24 03/24/2023 ELECT ROPHO RESIS , SERUM gamma g/dL 0.90 g/dL 0.60-1 .60 Not Available [address] [place] [facility] [place], [address] 03/24/2023 15:37:28 03/21/19 24 03/21/2023 T3,FR EE T3,free 3.9 pg/mL 2.8-5. 3 Test perfo rmed or refer red by [facility] [address] [place] [address] Not Available [address] [place], [address] 03/24/2023 15:37:29 03/21/19 24 03/21/2023 D-DIM ER D-dimer 668 NG/ml feu <500 high *Lite ratur e suppo rts the exclu anju of DVT and/o r PE with a resul t less than 500 ng/ml FEU with this metho d.* Not Available [address] [place], [address] 03/25/2023 01:41:18 03/21/19 24 03/21/2023 URIC ACID uric acid 7.4 mg/dL 2.6-6. 0 high Not Available [address] [place], [address] 03/25/2023 01:41:21 03/21/19 24 03/21/2023 LIPID 2 cholesterol 300 mg/dL <200 high Not Available [address] [place], [address] 03/25/2023 01:41:22 03/21/19 24 03/21/2023 LIPID 2 triglyceride 138 mg/dL <150 Not Available [address] [place], [address] 03/25/2023 01:41:22 03/21/19 24 03/21/2023 LIPID 2 HDL cholesterol 61 mg/dL 40-60 Not Available [address] [place], [address] 03/25/2023 01:41:22 03/21/19 24 03/21/2023 LIPID 2 calculated LDL 212 mg/dL <100 high Natio nal Angela stero l Educa tion Progr am (NCEP -ATPI II) class ifica tions : Angela stero l <200 mg/dL Candelaria able Angela stero l 200-2 39 mg/dL Borde rline High Angela stero l >or=2 40 mg/dL High HDL <40 mg/dL Low HDL >or=6 0 mg/dL High LDL <100 mg/dL Optim al LDL 100-1 29 mg/dL Near Optim al/Ab ove Optim al LDL 130-1 59 mg/dL Borde rline High LDL 160-1 89 mg/dL High LDL >or=1 90 mg/dL Very High *The above refer ence range is for adult s 18 years or older . Not Available [address] [place], [address] 03/25/2023 01:41:22 03/21/19 24 03/21/2023 DEMETRIS TIN ferritin 92 NG/mL 8-252 normal Not Available [address] [place], [address] 03/25/2023 01:41:22 03/21/19 24 03/21/2023 TSH TSH 3.03 uIU/m L 0.36-3 .74 normal NOTE: Supra -phys iolog ic doses of Bioti n(B7) may cause false negat deandre resul ts. Not Available [address] [place], [address] 03/25/2023 01:41:23 03/21/19 24 03/21/2023 VITAM IN B12 vitamin B12 435 pg/mL 193-98 6 normal Not Available [address] [place], [address] 03/25/2023 01:41:24 03/21/19 24 03/21/2023 FOLAT E folate 16.7 NG/mL 8.6-20 .0 normal Not Available [address] [place], [address] 03/25/2023 01:41:24 03/21/19 24 03/21/2023 LIPAS E lipase 35 U/L 16-77 normal Not Available Leonie osullivan [address] [place], [address] 03/25/2023 01:41:24 03/21/19 24 03/21/2023 IRON/ IBCT iron 81 ug/dL 50-170 normal Not Available Leonie osullivan [address] [place], [address] 03/25/2023 01:41:27 03/21/19 24 03/21/2023 IRON/ IBCT total iron binding capacity 285 ug/dL 250-45 0 normal Not Available [address] [place], [address] 03/25/2023 01:41:27 03/21/19 24 03/21/2023 IRON/ IBCT transferrin sat 28 % 15-50 normal Not Available Prudencio hurt [address] [place], [address] 03/25/2023 01:41:27 03/21/19 24 03/21/2023 HEMOG LOBIN A1C hemoglobin A1C 6.2 % <5.7 high Refer ence Range s <5.7 Cristin l 5.7-6 .4% Predi abete s 6.5% or great er Diagn ostic for diabe doni (if confi rmed) Refer ences : 1. Ameri can [facility]. Clas sific ation and Diagn osis of [facility]. [facility] 2018 2(Sup pleme nt 1):S1 3-s28 . Not Available [address] [place], [address] 03/25/2023 01:41:28 03/21/19 24 03/21/2023 CA 125 Ca 125 9 U/mL <30 NOTE: Serum CA 125 eugenio ntrat ion shoul d not be inter prete d as absol estee evide nce for the prese nce or absen ce of kristen ramirez se. Assay ed on Sieme ns [facility] Cent[facility] ur XPT using chemi lumin escen t techn ology . Value s obtai boris by using diffe rent assay metho ds canno t be used inter guevara eably . Test perfo rmed or refer red by [facility] [address], [place] [address] Not Available [address] [place], [address] 03/25/2023 01:41:31 03/21/19 24 03/24/2023 LYME AB W RFLX TO LYME CONFI RM lyme Ab W rflx to lyme confirm Negati ve negati ve Test perfo rmed or refer red by [facility] [address] [place] [address] Not Available [address] [place], [address] 03/25/2023 01:41:31 03/21/19 24 03/21/2023 HOMOC YSTEI NE homocysteine 13.2 umol/ L 5.0-13 .9 Refer ence range may not apply to non-f astin g sampl es. It is not recom otto d that EDTA plasm a and serum from the same patie nt be used inter guevara eably . Serum eugenio ntrat ions have been obser yaz to be up to 10% highe r than EDTA plasm a. Refer ence range may not apply to serum resul ts. Test perfo rmed or refer red by [facility] [address] [place] [place] [address] Not Available [address] [place], [address] 03/25/2023 01:41:32 10/08/19 24 10/08/2023 COMPL ETE BLOOD COUNT W/DIF F WBC 5.67 10_3/ uL 4.4-10 .8 normal Not Available [address] [place], [address] 10/08/2023 21:20:27 10/08/19 24 10/08/2023 COMPL ETE BLOOD COUNT W/DIF F RBC 3.80 10_6/ uL 3.93-5 .22 low Not Available [address] [place], [address] 10/08/2023 21:20:27 10/08/19 24 10/08/2023 COMPL ETE BLOOD COUNT W/DIF F HGB 12.4 g/dL 11.2-1 5.7 normal Not Available [address] [place], [address] 10/08/2023 21:20:27 10/08/19 24 10/08/2023 COMPL ETE BLOOD COUNT W/DIF F HCT 37.1 % 36.0-4 6.0 normal Not Available [address] [place], [address] 10/08/2023 21:20:27 10/08/19 24 10/08/2023 COMPL ETE BLOOD COUNT W/DIF F MCV 98 fL 80-95 high Not Available [address] [place], [address] 10/08/2023 21:20:27 10/08/19 24 10/08/2023 COMPL ETE BLOOD COUNT W/DIF F MCH 32.6 pg 27.0-3 3.0 normal Not Available [address] [place], [address] 10/08/2023 21:20:27 10/08/19 24 10/08/2023 COMPL ETE BLOOD COUNT W/DIF F MCHC 33.4 % 32.0-3 6.0 normal Not Available [address] [place], [address] 10/08/2023 21:20:27 10/08/19 24 10/08/2023 COMPL ETE BLOOD COUNT W/DIF F RDW 12.5 % 11.7-1 4.6 normal Not Available [address] [place], [address] 10/08/2023 21:20:27 10/08/19 24 10/08/2023 COMPL ETE BLOOD COUNT W/DIF F platelet count 260 10_3/ uL 130-40 0 normal Not Available [address] [place], [address] 10/08/2023 21:20:27 10/08/19 24 10/08/2023 COMPL ETE BLOOD COUNT W/DIF F MPV 10.7 fL 8.0-11 .0 normal Not Available [address] [place], [address] 10/08/2023 21:20:27 10/08/19 24 10/08/2023 COMPL ETE BLOOD COUNT W/DIF F neutrophils % 62.3 % Not Available Washingtonann hurt [address] [place], [address] 10/08/2023 21:20:27 10/08/19 24 10/08/2023 COMPL ETE BLOOD COUNT W/DIF F lymphocytes % 29.5 % Not Available Prudencio hurt [address] [place], [address] 10/08/2023 21:20:27 10/08/19 24 10/08/2023 COMPL ETE BLOOD COUNT W/DIF F monocytes % 6.0 % Not Available [address] [place], [address] 10/08/2023 21:20:27 10/08/19 24 10/08/2023 COMPL ETE BLOOD COUNT W/DIF F eosinophils % 1.1 % Not Available [address] [place], [address] 10/08/2023 21:20:27 10/08/19 24 10/08/2023 COMPL ETE BLOOD COUNT W/DIF F basophils % 0.7 % Not Available [address] [place], [address] 10/08/2023 21:20:27 10/08/19 24 10/08/2023 COMPL ETE BLOOD COUNT W/DIF F immature grans % 0.4 % Not Available [address] [place], [address] 10/08/2023 21:20:27 10/08/19 24 10/08/2023 COMPL ETE BLOOD COUNT W/DIF F nucleated RBC 0.0 % 0.0-0. 3 normal Not Available [address] [place], [address] 10/08/2023 21:20:27 10/08/19 24 10/08/2023 COMPL ETE BLOOD COUNT W/DIF F absolute neutrophil count 3.54 10_3/ uL 1.2-6. 7 normal Not Available [address] [place], [address] 10/08/2023 21:20:27 10/08/19 24 10/08/2023 COMPL ETE BLOOD COUNT W/DIF F absolute lymphocyte count 1.67 10_3/ uL 1.2-3. 4 normal Not Available [address] [place], [address] 10/08/2023 21:20:27 10/08/19 24 10/08/2023 COMPL ETE BLOOD COUNT W/DIF F absolute monocyte count 0.34 10_3/ uL 0.1-0. 8 normal Not Available [address] [place], [address] 10/08/2023 21:20:27 10/08/19 24 10/08/2023 COMPL ETE BLOOD COUNT W/DIF F absolute eosinophil count 0.06 10_3/ uL 0.0-0. 7 normal Not Available [address] [place], [address] 10/08/2023 21:20:27 10/08/19 24 10/08/2023 COMPL ETE BLOOD COUNT W/DIF F absolute basophil count 0.04 10_3/ uL 0.0-0. 2 normal Not Available [address] [place], [address] 10/08/2023 21:20:27 10/08/19 24 10/08/2023 COMPR EHENS DEANDRE METAB OLIC PANEL calcium 10.0 mg/dL 8.5-10 .1 normal Not Available [address] [place], [address] 10/08/2023 21:31:32 10/08/19 24 10/08/2023 COMPR EHENS DEANDRE METAB OLIC PANEL glucose 103 mg/dL 74-106 normal Not Available Leonie [address] [place], [address] 10/08/2023 21:31:32 10/08/19 24 10/08/2023 COMPR EHENS DEANDRE METAB OLIC PANEL BUN 16 mg/dL 7-18 normal Not Available Leonie [address] [place], [address] 10/08/2023 21:31:32 10/08/19 24 10/08/2023 COMPR EHENS DEANDRE METAB OLIC PANEL creatinine 1.0 mg/dL 0.55-1 .02 normal Not Available [address] [place], [address] 10/08/2023 21:31:32 10/08/19 24 10/08/2023 COMPR EHENS DEANDRE METAB OLIC PANEL estimated GFR 54.53 mL/min /1.73m 2 The eGFR is calcu lated from a serum creat inine using the CKD-E PI 2020 equat ion. Other varia bles requi red for the equat ion are gende r and age; this equat ion does not inclu de a race coeff icien t. This equat ion has simil ar overa ll perfo rmanc e to previ ous equat ions excep t value s may diffe r, in parti cular , in patie nts with highe r value s of eGFR and young er-ag ed adult s. Not Available [address] [place], [address] 10/08/2023 21:31:32 10/08/19 24 10/08/2023 COMPR EHENS DEANDRE METAB OLIC PANEL total protein 7.7 g/dL 6.4-8. 2 normal Not Available [address] [place], [address] 10/08/2023 21:31:32 10/08/19 24 10/08/2023 COMPR EHENS DEANDRE METAB OLIC PANEL albumin 4.1 g/dL 3.4-5. 0 normal Not Available [address] [place], [address] 10/08/2023 21:31:32 10/08/19 24 10/08/2023 COMPR EHENS DEANDRE METAB OLIC PANEL bilirubin, total 1.21 mg/dL 0.2-1. 0 high Not Available [address] [place], [address] 10/08/2023 21:31:32 10/08/19 24 10/08/2023 COMPR EHENS DEANDRE METAB OLIC PANEL alk phos 50 U/L 46-116 normal Not Available [address] [place], [address] 10/08/2023 21:31:32 10/08/19 24 10/08/2023 COMPR EHENS DEANDRE METAB OLIC PANEL sodium 143 mmol/ L 136-14 5 normal Not Available [address] [place], [address] 10/08/2023 21:31:32 10/08/19 24 10/08/2023 COMPR EHENS DEANDRE METAB OLIC PANEL potassium 3.5 mmol/ L 3.5-5. 1 normal Not Available [address] [place], [address] 10/08/2023 21:31:32 10/08/19 24 10/08/2023 COMPR EHENS DEANDRE METAB OLIC PANEL chloride 105 mmol/ L 98-107 normal Not Available [address] [place], [address] 10/08/2023 21:31:32 10/08/19 24 10/08/2023 COMPR EHENS DEANDRE METAB OLIC PANEL CO2 26.1 mmol/ L 21.0-3 2.0 normal Not Available [address] [place], [address] 10/08/2023 21:31:32 10/08/19 24 10/08/2023 COMPR EHENS DEANDRE METAB OLIC PANEL anion gap 11.9 mmol/ L 3-11 high Not Available [address] [place], [address] 10/08/2023 21:31:32 10/08/19 24 10/08/2023 COMPR EHENS DEANDRE METAB OLIC PANEL AST 17 U/L 15-37 normal Not Available Leonie osullivan [address] [place], [address] 10/08/2023 21:31:32 10/08/19 24 10/08/2023 COMPR EHENS DEANDRE METAB OLIC PANEL ALT 18 U/L 14-59 normal Not Available Leonie osullivan [address] [place], [address] 10/08/2023 21:31:32 10/08/19 24 10/08/2023 MAGNE SIUM magnesium 2.2 mg/dL 1.8-2. 4 normal Not Available [address] [place], [address] 10/08/2023 21:31:33 10/08/19 24 10/08/2023 LIPAS E lipase 58 U/L 16-77 normal Not Available Leonie osullivan [address] [place], [address] 10/08/2023 21:31:33 10/08/19 24 10/08/2023 URINA LYSIS color Yellow yellow Not Available Leonie osullivan [address] [place], [address] 10/08/2023 22:18:39 10/08/1910/08/2023 URINA LYSIS clarity Clear clear Not Available Leonie osullivan [address] [place], [address] 10/08/2023 22:18:39 10/08/19 24 10/08/2023 URINA LYSIS specific gravity 1.015 1.005- 1.025 normal Not Available [address] [place], [address] 10/08/2023 22:18:39 10/08/19 24 10/08/2023 URINA LYSIS pH 6.5 5-8 normal Not Available Leonie osullivan [address] [place], [address] 10/08/2023 22:18:39 10/08/19 24 10/08/2023 URINA LYSIS leukocyte esterase Negati ve negati ve Not Available [address] [place], [address] 10/08/2023 22:18:39 10/08/19 24 10/08/2023 URINA LYSIS nitrite Negati ve negati ve Not Available [address] [place], [address] 10/08/2023 22:18:39 10/08/19 24 10/08/2023 URINA LYSIS protein Negati ve mg/dL neg-tr keven Not Available [address] [place], [address] 10/08/2023 22:18:39 10/08/19 24 10/08/2023 URINA LYSIS glucose Negati ve mg/dL negati ve Not Available [address] [place], [address] 10/08/2023 22:18:39 10/08/19 24 10/08/2023 URINA LYSIS ketones Negati ve mg/dL negati ve Not Available [address] [place], [address] 10/08/2023 22:18:39 10/08/19 24 10/08/2023 URINA LYSIS urobilinogen 0.2 mg/dL up to 0.2 Not Available [address] [place], [address] 10/08/2023 22:18:39 10/08/19 24 10/08/2023 URINA LYSIS bilirubin Negati ve negati ve Not Available [address] [place], [address] 10/08/2023 22:18:39 10/08/19 24 10/08/2023 URINA LYSIS blood Modera te negati ve abnormal Not Available [address] [place], [address] 10/08/2023 22:18:39 10/08/19 24 10/08/2023 URINA LYSIS color Yellow yellow Not Available Leonie osullivan [address] [place], [address] 10/08/2023 22:36:52 10/08/19 24 10/08/2023 URINA LYSIS clarity Clear clear Not Available Leonie osullivan [address] [place], [address] 10/08/2023 22:36:52 10/08/1910/08/2023 URINA LYSIS specific gravity 1.015 1.005- 1.025 normal Not Available [address] [place], [address] 10/08/2023 22:36:52 10/08/19 24 10/08/2023 URINA LYSIS pH 6.5 5-8 normal Not Available Leonie osullivan [address] [place], [address] 10/08/2023 22:36:52 10/08/19 24 10/08/2023 URINA LYSIS leukocyte esterase Negati ve negati ve Not Available [address] [place], [address] 10/08/2023 22:36:52 10/08/19 24 10/08/2023 URINA LYSIS nitrite Negati ve negati ve Not Available [address] [place], [address] 10/08/2023 22:36:52 10/08/19 10/08/2023 URINA LYSIS protein Negati ve mg/dL neg-tr keven Not Available [address] [place], [address] 10/08/2023 22:36:52 10/08/19 24 10/08/2023 URINA LYSIS glucose Negati ve mg/dL negati ve Not Available [address] [place], [address] 10/08/2023 22:36:52 10/08/19 24 10/08/2023 URINA LYSIS ketones Negati ve mg/dL negati ve Not Available [address] [place], [address] 10/08/2023 22:36:52 10/08/19 24 10/08/2023 URINA LYSIS urobilinogen 0.2 mg/dL up to 0.2 Not Available [address] [place], [address] 10/08/2023 22:36:52 10/08/19 24 10/08/2023 URINA LYSIS bilirubin Negati ve negati ve Not Available [address] [place], [address] 10/08/2023 22:36:52 10/08/19 24 10/08/2023 URINA LYSIS blood Modera te negati ve abnormal Not Available [address] [place], [address] 10/08/2023 22:36:52 10/08/19 24 10/08/2023 MICRO SCOPI C FINDI NGS WBC Negati ve hpf 0-5 Not Available [address] [place], [address] 10/08/2023 22:36:52 10/08/19 24 10/08/2023 MICRO SCOPI C FINDI NGS RBC 3-5 hpf 0-2 abnormal Not Available [address] [place], [address] 10/08/2023 22:36:52 10/08/19 24 10/08/2023 MICRO SCOPI C FINDI NGS epithelial cells Many hpf negati ve Not Available [address] [place], [address] 10/08/2023 22:36:52 10/08/19 24 10/08/2023 MICRO SCOPI C FINDI NGS bacteria Rare hpf negati ve Not Available [address] [place], [address] 10/08/2023 22:36:52 10/08/19 24 10/08/2023 MICRO SCOPI C FINDI NGS crystals Negati ve hpf negati ve Not Available [address] [place], [address] 10/08/2023 22:36:52 10/08/19 24 10/08/2023 MICRO SCOPI C FINDI NGS mucus Negati ve negati ve Not Available [address] [place], [address] 10/08/2023 22:36:52 10/08/19 24 10/08/2023 MICRO SCOPI C FINDI NGS casts Negati ve lpf negati ve Not Available [address] [place], [address] 10/08/2023 22:36:52 10/08/19 24 10/08/2023 MICRO SCOPI C FINDI NGS C S indicated? No/Sq. Contam inatio n Not Available [address] [place], [address] 10/08/2023 22:36:52 10/08/19 24 10/08/2023 urina lysis , dipst ick Leukocytes Negati ve Not Available [address], [address], 10/08/2023 15:13:16 10/08/19 24 10/08/2023 urina lysis , dipst ick Nitrite negati ve Not Available [address], [address], 10/08/2023 15:13:16 10/08/19 24 10/08/2023 urina lysis , dipst ick Urobilinogen .2 Not Available [facility] [address] [place], [address], 10/08/2023 15:13:16 10/08/19 24 10/08/2023 urina lysis , dipst ick Protein Negati ve Not Available [address], [address], 10/08/2023 15:13:16 10/08/19 24 10/08/2023 urina lysis , dipst ick pH 6.0 Not Available [address], [address], 10/08/2023 15:13:16 10/08/19 24 10/08/2023 urina lysis , dipst ick Blood Non-He molyze d: Modera te Not Available [address], [address], 10/08/2023 15:13:16 10/08/19 24 10/08/2023 urina lysis , dipst ick Specific [place] 1.015 Not Available [facility] [address] [place], [address], 10/08/2023 15:13:16 10/08/19 24 10/08/2023 urina lysis , dipst ick Ketone Modera te Not Available [address], [address], 10/08/2023 15:13:16 10/08/19 24 10/08/2023 urina lysis , dipst ick Bilirubin Negati ve Not Available [address], [address], 10/08/2023 15:13:16 10/08/19 24 10/08/2023 urina lysis , dipst ick Glucose Negati ve Not Available [facility] [address] [place], [address], 10/08/2023 15:13:16 10/08/19 24 10/08/2023 urina lysis , dipst ick Appearance Clear Not Available [facility] [address] [place], [address], 10/08/2023 15:13:16 10/08/19 24 10/08/2023 urina lysis , dipst ick Color Pale Yellow Not Available [facility] [address] [place], [address], 10/08/2023 15:13:16 10/08/19 24 10/08/2023 elect rocar diogr am No observ ation record ed. [email or web address] [facility] [address] [place], [address], 10/08/2023 17:26:08 10/08/19 elect rocar diogr am No observ ation record ed. [email or web address] Not Available 2023 16:29:35 Result Notes None recorded. Problems Name Problem SNOMED Code Status Onset Date Resolution Date Notes Provider Name and Address Organization Details Recorded Time Hyperlip idemia 15287564 Active 2004 An miller [facility] 4 11:53:59 Gastroes ophageal reflux disease without esophagi tis 752182129 Active 2001 An miller [facility] 4 11:46:37 Lichen planus 8052790 Active 2002 [facility] [place] [facility] 4 11:54:41 History of disorder of digestiv e system 669204686 Active 2003 Hx of divertic ulitis -- recurren t bouts since 2003 [facility] 4 11:49:07 History of clinical finding in subject 069559896 Completed 200904/07/2009 Not Available [facility] 3 05:36:29 Essentia l hyperten anuj 04988405 Active 2004 [facility] 4 11:46:26 Overweig ht 796310066 Active 2013 (BMI 25-29.9) [facility] 4 11:55:29 Herpesvi marci infectio n 83803992 Active 2014 Genital herpes -- L buttock [facility] 4 11:48:00 Haque' s esophagu s 248807653 Active 2014 last endo 11/01 [facility] 4 11:45:08 Anxiety disorder 368720282 Active 2014 [facility] 4 11:10:17 Pain in thoracic spine 854097583 Completed 201511/23/2015 11/16/19 16 - Comments only - Kumar Schultz MD - Muscular , R trap vs rhomboid s. Advised local massage, muscle rubs, heat, etc. 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 4 11:57:37 Acute gastroen teritis 81914157 Completed 201803/27/2018 03/22/19 19 - Comments only - Kumar Schultz MD - Resolved . Not Available [facility] 3 05:36:31 Disorder of skin appendag e 783844033 Completed 201804/17/2018 03/22/19 19 - Comments only - Kumar Schultz MD - And cellulit is, empiric coverage for possible fungal infectio n ineffect deandre. Staph or other bacteria l infectio n seems more likely therefor e. Some sort of contact dermatit is is also in differen tial but less likely. Will treat with cephalex in. May apply over-the -counter hydrocor tisone cream and/or use low-dose Benadryl as needed for itching. Cautione d nasir thao potentia l side effects of latter. 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 4 11:56:54 Atrophic vaginiti s 09705521 Active 2018 An [place] [employer] [employer] [facility] 4 11:10:34 General examinat ion of patient Active 2019 An James [employer] [employer] [facility], [employer]. 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. 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 4 11:53:43 Long-ter m current use of anticoag ulant 433871366 Active 2020 [facility], [facility], [facility]. 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 4 11:54:24 Actinic keratosi s 580807844 Active 2020 distal L nose [facility] 4 11:10:06 Elevated blood-pr essure reading without diagnosi s of hyperten anju 258341836 Active 2020 Labile hyperten anju [facility] 4 11:46:14 Screenin g for osteopor osis Active 2022 [facility] 4 11:57:55 Hearing loss 08415384 Completed 202204/17/2022 Problem Code: H91.90; Problem Code Type: ICD-10; Not Available [facility] 3 05:36:34 Trigger finger of right hand 39787902345 137364 Active 2022 Trigger finger of right ring finger [facility] 4 11:58:33 Lumbosac ral radiculo conrad 2306091 Active 2022 [facility] 4 11:55:12 Pulmonar y embolism 63479481 Completed 202103/12/2022 Problem Code: I26.99; Problem Code Type: ICD-10; Not Available [facility] 3 05:36:43 Divertic ulitis 152672013 Completed 200311/13/2022 Not Available [facility] 3 05:36:43 Pain in right hip joint 75244839476 9102 Completed 202011/13/2022 12/13/19 21 - Comments only - Kumar Schultz MD - will obtain xray of hip although i suspect pain is more muscular in origin. If no evidence of severe DJD, would refer to PT. (otherwi se to ortho). Reviewed basic stretche s she can try meanwhil e. Problem Code: M25.551; Problem Code Type: ICD-10; Not Available [facility] 3 05:36:44 Diplopia 72157540 Completed 201111/16/2015 Problem Code: H53.2; Problem Code Type: ICD-10; Not Available [facility] 3 05:36:44 Dyspnea 683423951 Completed 201703/12/2022 Problem Code: R06.09; Problem Code Type: ICD-10; Not Available [facility] 3 05:36:44 Chronic rhinitis 36170668 Completed 201703/12/2022 Problem Code: J31.0; Problem Code Type: ICD-10; Not Available [facility] 3 05:36:44 Localize d eruption of skin 313406808 Completed 201903/07/2020 Problem Code: R21; Problem Code Type: ICD-10; Not Available [facility] 3 05:36:45 Neoplasm of skin 576603276 Completed 202001/23/2021 Not Available [facility] 3 05:36:45 Hyperten sive disorder 46851136 Completed 200411/13/2022 Not Available [facility] 3 05:36:45 Counseli ng Completed 202003/12/2022 Problem Code: Z71.89; Problem Code Type: ICD-10; Not Available [facility] 3 05:36:46 Pulmonar y embolism 21067616 Completed 201011/08/2014 Problem Code: 415.19; Problem Code Type: ICD-9; Not Available [facility] 3 05:36:47 Dysphagi a 67621785 Completed 201703/12/2022 Problem Code: R13.10; Problem Code Type: ICD-10; Not Available [facility] 3 05:36:47 Obesity [id number] Completed 201311/13/2022 Problem Code: E66.9; Problem Code Type: ICD-10; Not Available [facility] 3 05:36:47 Greater trochant jeremi pain syndrome [id number] Completed 201505/23/2017 Problem Code: M70.60; Problem Code Type: ICD-10; Not Available [facility] 3 05:36:48 Long-ter m current use of drug therapy [id number] Completed 202003/12/2022 Problem Code: Z79.899; Problem Code Type: ICD-10; Not Available [facility] 05:36:48 Fatigue 91105443 Completed 202011/13/2022 Problem Code: R53.83; Problem Code Type: ICD-10; Not Available [facility] 3 05:36:49 Essentia l hyperten anju 07919261 Completed 201703/12/2022 Problem Code: I10; Problem Code Type: ICD-10; [facility] 4 11:46:26 Genital herpes simplex 96584986 Completed 201411/13/2022 Not Available [facility] 05:36:49 Nicotine dependen ce 00407672 Completed 201003/12/2022 Problem Code: Z87.891; Problem Code Type: ICD-10; Not Available [facility] 05:36:49 Lumbosac ral radiculo conrad 6322617 Completed 201902/25/2020 Problem Code: M54.16; Problem Code Type: ICD-10; An [facility] 4 11:55:12 Divertic ulitis of intestin e 929909993 Completed 200311/13/2022 01/24/20 21 - Comments only - Kumar Schultz MD - and recurren t. Completi ng Abx, sx resolvin g. REviewed general manageme nt strategi es. Problem Code: K57.92; Problem Code Type: ICD-10; Not Available [facility] 3 05:36:51 Pulmonar y embolism 01250871 Completed 202011/13/2022 07/06/19 21 - Comments only - Kumar Schultz MD - Therapeu tic INR, continue current Coumadin with recheck in 1 week. Consider transiti on to Eliquis given availabi lity of reversal agent. Age appropri ate dosing would be 2.5 mg twice daily, starting once INR is less than 2. Problem Code: I26.99; Problem Code Type: ICD-10; Not Available [facility] 3 05:36:52 Pain in lower limb 58132900 Completed 202003/07/2020 Problem Code: M79.606; Problem Code Type: ICD-10; Not Available [facility] 3 05:36:52 Gastroes ophageal reflux disease 777362620 Completed 200111/13/2022 Not Available [facility] 3 05:36:53 Screenin g for disorder Completed 201505/23/2017 Problem Code: Z13.9; Problem Code Type: ICD-10; Not Available [facility] 3 05:36:53 Health conditio n feared but not present 87085488206 9109 Completed 201603/07/2017 Problem Code: Z71.1; Problem Code Type: ICD-10; Not Available [facility] 3 05:36:53 Blood glucose outside referenc e range 861798966 Completed 201811/13/2022 03/12/19 23 - Comments only - Kumar Schultz MD - stable, A1C 6.2. Continue lifestyl e manageme nt. Problem Code: R73.09; Problem Code Type: ICD-10; Not Available [facility] 3 05:36:53 Vomiting 933168827 Completed 202010/16/2020 Problem Code: R11.10; Problem Code Type: ICD-10; Not Available [facility] 3 05:36:54 Pelvic and perineal pain 876463320 Completed 201503/07/2017 Problem Code: R10.2; Problem Code Type: ICD-10; Not Available [facility] 3 05:36:55 Dyspnea 266224356 Completed 201706/06/2017 Problem Code: R06.00; Problem Code Type: ICD-10; Not Available [facility] 3 05:36:55 Polymyal gale rheumati ca 85776089 Completed 202011/13/2022 04/24/19 22 - Comments only - Kumar Schultz MD - Well-con trolled on very low-dose predniso ne, triniyi gladys GUTIÉRREZD may make final wean off predniso ne difficul t. Will review inflamma tory markers likely drawn by jared graham physicia n in late March . Continue current 2 to 3 mg a day. Problem Code: M35.3; Problem Code Type: ICD-10; Not Available [facility] 3 05:36:56 Eustachi an tube disorder 68427329 Completed 201511/16/2015 Problem Code: H69.80; Problem Code Type: ICD-10; Not Available [facility] 05:36:56 Acute sinusiti s 04025453 Completed 201511/16/2015 Problem Code: J01.90; Problem Code Type: ICD-10; Not Available [facility] 05:36:57 History of disorder of digestiv e system 502384334 Completed 201411/13/2022 Problem Code: Z87.19; Problem Code Type: ICD-10; An [employer], [facility]. 11:49:07 Blood chemistr y outside referenc e range 646362545 Completed 201706/26/2020 Problem Code: R79.89; Problem Code Type: ICD-10; Not Available [facility] 05:36:58 Type 2 diabetes mellitus without complica tion 227043694 Completed 201811/13/2022 04/24/19 22 - Comments only - Kumar Schultz MD - Diet controll ed, due for follow-u p A1c in 1 month. Will review whether this was checked with recent labs. Problem Code: E11.9; Problem Code Type: ICD-10; Not Available [facility] 3 05:36:59 Seborrhe ic keratosi s 106840859 Active 2022 An miller [facility]. 4 11:57:59 Chronic dermatit is 13701958 Active 2022 [facility] 4 11:45:32 Problem Notes None recorded. Procedures Surgical History None recorded. Imaging Results Imaging Date Name Status LastModified by Organization Details LastModified Time 10/08/2023 electrocardiogram completed [address], [place], [address], 10/08/2023 17:26:08 10/08/2023 electrocardiogram [place] [address] Informa tion not available 10/08/2023 16:29:35 Procedure Notes None recorded. Medical Equipment None Reported. Allergies Allergen ID Allergen Name Allergen Category Reaction Reaction Severity Criticality Documentation Date Start Date Code Code System Note Provider Name and Address Organization Details Recorded Time 61613 lisinopri l medicatio n rash moderate Not available 12/27/20222011 97775 RxNorm [facility] 4 11:59:12 48490 codeine medicatio n other moderate Not available 12/27/20222001 2670 RxNorm No react ion enter ed [facility] 4 11:58:58 91593 Norvasc medicatio n other moderate Not available 06/20/20232011 07793 RxNorm face burni ng [facility] 4 11:59:52 Medications Name Sig Start Date [...] needed for blood pressure over 170 active [facility] Not Available Not Available No t Available [...] % 66 /min 97.1 [degF] 28.3 kg/m2 51686.8 6 g 108 mm[Hg] 66 mm[Hg] SUHAIL MCGEE RN [place] - [facility] 3 16:06:58 Date Recorded Body height Oxygen saturation Oxygen saturation in Arterial blood by Pulse oximetry Heart rate Body temperature Systolic blood pressure Diastolic blood pressure Provider Name and Address Organization Details Last Updated DateTime 4 154.94 cm 98 % 98 % 58 /min 97.3 [degF] 179 mm[Hg] 79 mm[Hg] ELISHA SCOTT MA [facility] 4 14:13:49 Social History Question Answer Notes LastModified by Organizat ion Details LastModified Time Tobacco Smoking Status Former Smoker SUHAIL MCGEE RN [facility], [facility] 12/31/2022 16:07:55 Do You Have An Advance Directive? Yes Information not available 12/31/2022 When Did You Quit Smoking? 16+yearssinc elastcigaret te Information not available 12/31/2022 Are There Any Guns Present In Your Home? No Information not available 12/31/2022 Do You Have A Medical Power Of Type Rolling Machine Operator? Yes Information not available 12/31/2022 Do You [...] Recorded Time Tdap 07/15/2012 completed Not Available [facility] 03:53:28 zoster live 05/08/2009 completed Not Available [facility] 12/27/2022 03:53:29 Influenza, high-dose, trivalent, PF 10/25/2016 completed Not Available [facility] 12/27/2022 03:53:29 Influenza, high-dose, trivalent, PF 12/04/2017 completed Not Available [facility] 12/27/2022 03:53:29 Td(adult) unspecified formulation 02/03/2006 completed Not Available [facility] 12/27/2022 03:53:29 Influenza, split virus, trivalent, preservative 2014 completed Not Available [facility] 12/27/2022 03:53:30 Influenza, split virus, trivalent, preservative 11/16/2015 completed Not Available [facility] 12/27/2022 03:53:30 Influenza, high-dose, quadrivalent, PF 12/15/2019 completed Not Available [facility] 12/27/2022 03:53:31 COVID-19, mRNA, LNP-S, PF, 100 mcg/0.5mL dose or 50 mcg/0.25mL dose 04/27/2021 completed Not Available [facility] 12/27/2022 03:53:31 COVID-19 vaccine, vector-nr, rS-Ad26, PF, 0.5 mL 06/13/2020 completed Not Available [facility] 12/27/2022 03:53:32 COVID-19 vaccine, vector-nr, rS-Ad26, PF, 0.5 mL 12/12/2020 completed Not Available [facility] 12/27/2022 03:53:32 Pneumococcal conjugate PCV20, polysaccharide VHP877 conjugate, adjuvant, PF 04/20/2022 completed Not Available [facility] 12/27/2022 03:53:32 COVID-19, mRNA, LNP-S, PF, 50 mcg/0.5 mL dose 01/17/2022 completed Not Available [facility] 12/27/2022 03:53:32 pneumococcal polysaccharide PPV23 07/15/2012 completed Not Available [facility] 2022 03:53:33 Hep B, unspecified formulation 05/08/2009 completed Not Available [facility] 12/27/2022 03:53:33 Hep A, unspecified formulation 10/14/2014 completed Not Available [facility] 12/27/2022 03:53:33 Hep A, unspecified formulation 02/03/2006 completed Not Available [facility] 12/27/2022 03:53:33 influenza, unspecified formulation 11/27/2001 completed Not Available [facility] 12/27/2022 03:53:34 influenza, unspecified formulation 11/29/2009 completed Not Available [facility] 12/27/2022 03:53:34 influenza, unspecified formulation 12/11/2007 completed Not Available [facility] 12/27/2022 03:53:34 influenza, unspecified formulation 12/11/2011 completed Not Available [facility] 12/27/2022 03:53:34 influenza, unspecified formulation 12/28/2021 completed Not Available [facility] 12/27/2022 03:53:34 influenza, unspecified formulation 01/02/2006 completed Not Available [facility] 12/27/2022 03:53:34 influenza, unspecified formulation 01/07/2003 completed Not Available [facility] 12/27/2022 03:53:34 influenza, unspecified formulation 01/25/2005 completed Not Available [facility] 12/27/2022 03:53:35 influenza, unspecified formulation 01/25/2013 completed Not Available [facility] 12/27/2022 03:53:35 polio, unspecified formulation 03/10/2006 completed Not Available [facility] 12/27/2022 03:53:35 polio, unspecified formulation 09/08/2006 completed Not Available [facility] 12/27/2022 03:53:35 polio, unspecified formulation 02/03/2006 completed Not Available [facility] 12/27/2022 03:53:35 typhoid, unspecified formulation 10/14/2014 completed Not Available [facility] 12/27/2022 03:53:36 typhoid, unspecified formulation 02/03/2006 completed Not Available [facility] 12/27/2022 03:53:36 influenza, unspecified formulation 12/18/2022 completed SUHAIL MCGEE RN null, [facility] 12/31/2022 16:14:04 SARS-COV-2 (COVID-19) vaccine, UNSPECIFIED 12/18/2022 completed LINDEN BELL, [facility] 12/31/2022 16:14:46 Past Encounters Encounter ID Performer Location Encounter Start Date Encounter Closed Date Diagnosis/Indication Diagnosis SNOMED-CT Code Diagnosis ICD10 Code [id number] KUMAR SCHULTZ MD [facility] [address] [place] [address] 12/31/2022 15:46:12 12/31/2022 16:57:58 Adult health examination 879360217 Z00.00 Essential hypertension 50323334 I10 Hyperlipidemia 21936275 E78.5 Dysplastic nevus of skin 598816017 D22.9 [id number] Zee Mott PA-C [address] [address] 10/08/2023 13:46:51 10/08/2023 15:00:54 Herpesvirus infection 73060641 B00.9 Epigastric pain 15045340 R10.13 Abdominal bloating 42489 9008 R14.0 Hypomagnesemia 904330085 E83.42 Asymptomat ic microscopic hematuria 9102370752 1033385 R31.21 Increased blood pressure 43524530 R03.0 Health Concerns Section Related Observation LastModified by Organization Detai ls LastModified Time None Recorded Concern Status LastModified by Organization Details LastModified Time None Recorded Advance Directives Directive Y: Payers Encounter Date Sequence Insurance Name Policy Number Policy Baez Covered Member ID Baez Member ID Guarantor Name 12/31/2022 1 [place] [employer] Abby Chavez Laly [id number] Abby F Humphrey 10/08/2023 1 [place] Abby F Laly [id number] Abby F Laly Notes Date Note Type Note Provider [...] MRI. She would like to see a product marketing director. No cognitive concerns. MD [address], [place], [address], [facility]. 12/31/2022 17:04:35 10/08/2023 text/html HPI Notes: Pt [...] hemoptysis. She has appt with GI in [place] at unknown time in the future. [address], [place], [address], [facility]. 10/08/2023 17:46:24 OBGyn Episode No OBEpisode recorded.
--- OUTSIDE RECORDS SUMMARY | 2023-10-19 06:20 | XMS_ITS | Encounter Summary ---
Author Organization [facility] [place] [address] Care Team Providers Care Oceanographic Meteorologist Name Role Phone Candie Skaggs MD Primary Care Provider Reason for Visit * Reason Onset Date Comments Request For Record 10/13/2023 [facility] - EGD (from 5 or 6 years ago) Encounter Details Date Type Department Care Team (Late st Contact Info) Description 10/13/2023 [place] [phone] Katharina Martin, TAMI Request For Record ([facility] - EGD (from 5 or 6 years ago)) Social History Tobacco Use Types Packs/Day Years Used Date Smoking Tobacco: Former Cigarettes 0.5 3 Smokeless Tobacco: Former Quit: 06/22/1979 Alcohol Use Standard Drinks/Week Comments Yes 2 (1 standard drink = 0.6 oz pur e alcohol) [facility] Utilities Answer Date Recorded In the past 12 months has e electric, gas, oil, or water company [...] any time in the past 12 m onths, were you homeless or living in a fdc (including now)? No 10/13/2023 DH IPV Inpatient [...] encounter Miscellaneous Notes * Telephone Encounter - Katharina Martin CMA - 10/13/2023 8:31 AM EDT [place], [place] [id number] To whom it may concern: THIS IS AN URGENT/STAT/ACUTE REQUEST PATIENT IS CURRENTLY ADMITTED TO THE HOSPITAL. WE WOULD LIKE RECORDS JOE. Patient is currently admitted in our facility, attending hospitalist Dr. Bhatt, is requesting records from your office/facility. Please include the following: [] Labs [] Discharge Summary [x] Reports/Studies - EGD report (5 or 6 years ago [] Other Patient name: Abby Ruffin Patient : [id number] Thank you, Katharina Supervisor [employer] [facility] [place] [id number] documented in this encounter Plan of Treatment Upcoming Encounters Date Type Department Care Team (Late st Contact Info) Description 10/27/2023 10:00 AM EDT TH Visit (TeleHealth) [place] [address] Olga Melgar APRN [facility] [address] documented as of this encounter Visit Diagnoses Not on filedocumented in this encounter Care Teams Oceanographic Meteorologist Relationship Specialty Start Date End Date Candie Skaggs MD [address] [place] [address] PCP - General Family Medicine 03/19/19 documented as of this encounter
--- OUTSIDE RECORDS SUMMARY | 2023-10-19 06:20 | XMS_ITS | Encounter Summary ---
Author Organization [facility] [place] [address] Care Team Providers Care Office Lead Name Role Phone Candie Skaggs MD Primary Care Provider [phone] Reason for Referral * Consultation (Routine) - Pending Review Specialty Diagnoses / Procedures Referred By Ko duarte Referred To Contact Gastroenterology Diagnoses Functional dyspepsia Benita Mclean MD [facility] [place] [address] Gastroenterology, [address] [address] Referral ID Status Reason Start Date Expiration Date Visits Requested Visits Authorized [id number] Pending Review Consult, Test & Treat 10/14/2023 04/11/2024 1 1 Encounter Details Date Type Department Care Team (Late st Contact Info) Description 10/14/2023 Orders [place] [address] Benita Mclean MD [facility] [place] [address] Functional dyspepsia Social History Tobacco Use Types Packs/Day Years Used Date Smoking Tobacco: Former Cigarettes 0.5 3 Smokeless Tobacco: Former Quit: 06/22/1979 Alcohol Use Standard Drinks/Week Comments Yes 2 (1 standard drink = 0.6 oz pur e alcohol) [facility] Utilities Answer Date Recorded In the [...] any time in the past 12 m [facility], were you homeless or living in a residential (including now)? No 10/13/2023 IPV Inpatient Questions Answer Date Recorded Does [...] as of this encounter Plan of Treatment Upcoming Encounters Date Type Department Care Team (Late st Contact Info) Description 10/27/2023 10:00 AM EDT TH Visit (TeleHealth) [place] [address] Olga Melgar APRN [facility] [place] [address] Scheduled Referrals Name Type Priority Associated Diagnoses Order Schedule Referral to Gastroenterology Outpatient Referral Routine Functional dyspepsia Ordered: 10/14/2023 documented as of this encounter Visit Diagnoses Diagnosis Functional dyspepsia Dyspepsia and other specified disorders of function of stomach documented in this encounter Care Teams Office Lead Relationship Specialty Start Date End Date Candie Skaggs MD [address] [place] [address] PCP - General Family Medicine 03/19/19 documented as of this encounter
--- OUTSIDE RECORDS SUMMARY | 2023-10-19 06:20 | XMS_ITS | Encounter Summary ---
Author Organization [facility] [place] [address] Care Team Providers Care Debt Management Counselor Name Role Phone Candie Skaggs MD Primary Care Provider [phone] Reason for Referral * Consultation (Routine) - Authorized Specialty Diagnoses / Procedures Referred By Ko duarte Referred To Contact Gastroenterology Diagnoses Functional dyspepsia Benita Mclean MD [facility] [place] [address] [facility] [address] [place] [address] Referral ID Status Reason Start Date Expiration Date Visits Requested Visits Authorized [id number] Authorized Consult, Test & Treat 10/13/2023 10/12/2024 1 1 Encounter Details Date Type Department Care Team (Late st Contact Info) Description 10/13/2023 Orders Only [place] [address] Benita Mclean MD [facility] [place] [address] Functional dyspepsia Social History Tobacco Use Types Packs/Day Years Used Date Smoking Tobacco: Former Cigarettes 0.5 3 Smokeless Tobacco: Former Quit: 06/22/1979 Alcohol Use Standard Drinks/Week Comments Yes 2 (1 standard drink = 0.6 oz pur e alcohol) [facility] Utilities Answer Date Recorded In the [...] any time in the past 12 m [facility], were you homeless or living in a nursing home (including now)? No 10/13/2023 IPV Inpatient Questions [...] AM EDT TH Visit (TeleHealth) [place] [address] Olga Melgar APRN [facility] [place] [address] Scheduled Referrals Name Type Priority Associated Diagnoses Order Schedule Referral to Gastroenterology Outpatient Referral Routine Functional dyspepsia Ordered: 10/13/2023 documented as of this encounter Visit Diagnoses Diagnosis Functional dyspepsia Dyspepsia and other specified disorders of function of stomach documented in this encounter Care Teams Debt Management Counselor Relationship Specialty Start Date End Date Candie Skaggs MD [facility] [address] [place] [address] PCP - General Family Medicine 03/19/19 documented as of this encounter
--- OUTSIDE RECORDS SUMMARY | 2023-10-19 06:21 | XMS_ITS | Encounter Summary ---
Author Organization [facility] [place] [address] Care Team Providers Care Computer Aided Drafter Name Role Phone Estee Novak APRN Primary Care Provider [phone] Encounter Details Date Type Department Care Team (Late st Contact Info) Description 07/30/2013 2:50 PM EDT Office Visit Dermatology at [address] [address] Noble Moseley MD [address] [facility] [place] [address] Squamous cell carcinoma (Primary Dx) Social History [...] - 07/30/2013 3:25 PM EDT Problem: Left advent lesion. Abby is a 77-year-old woman who is referred today by Dr. 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 Apparently this was treated with LN2 about two years ago and did not resolve when she as down at [facility]. She has a history of a moderately [...] in six months for repeat check. COPY: sEtee Novak N.P. documented in this encounter Plan of Treatment Upcoming Encounters Date Type Department Care Team (Late st Contact Info) Description 10/27/2023 10:00 AM EDT TH Visit (TeleHealth) [place] [address] Olga Melgar APRN [facility] [place] [address] documented as of this encounter Visit Diagnoses Diagnosis Squamous cell carcinoma- Primary Other malignant neoplasm without specification of site documented in this encounter Care Teams Computer Aided Drafter Relationship Specialty Start Date End Date Estee Novak APRN PCP - General 01/09/10 10/12/14 documented as of this encounter
--- OUTSIDE RECORDS SUMMARY | 2023-10-19 06:21 | XMS_ITS | Encounter Summary ---
Author Organization [facility] [place] [address] Care Team Providers Care Autocad Detailer Name Role Phone Candie Skaggs MD Primary Care Provider [phone] Encounter Details Date Type Department Care Team (Latest Contact Info) Description 07/05/2021 10:45 AM EDT Office Visit Hematology [place] [id number] Audra Fields MD [facility] [address] HEMATOLOGY [place] [address] Other pulmonary embolism without acute cor pulmonale, [...] once daily to 10 mg once daily. Elidahas subsequently gone on to receive a second J&J vaccine and a Moderna booster without adverse effect. In the office today she reports feeling well. Her pulmonary symptoms and chest pain have resolved and she has returned to full activity. She has had no bleeding complications with rivaroxaban and themedication is affordable through her community pharmacy. 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 LABORATORY STUDIES From 06-22-2020 [facility] (scanned in eDH) Unremarkable CBC BUN/CR /.1 Normal LFTs RADIOGRAPHIC STUDIES Reviewed above. Reports scanned. IMPRESSION Abby Ruffin is a 85 y.o. 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 PLAN/RECOMMENDATIONS I reviewed my impression with Abby and Geovanni. I reviewed the difference between an unprovoked VTE event and one that may have been precipitated by temporary risk factors (e.g., surgery, trauma, travel, hospitalization, immobilization) and discussed the additive nature of factors such as hereditary or acquired thrombophilia (e.g., factor V Leiden, PT [id number]), ABO blood type (non-O > O), dehydration, [...] daily which is the FDA-approved dose for assisted VTE prevention. My recommendation is therefore to continue with rivaroxaban for the assisted, continuing with the 10 mg once daily dose that she currently takes. She is perfectly amenable tothat approach. The risk/benefit calculation for continuing with anticoagulation may change of address clerk time, however, and should be revisited periodically. [...] In summary: ?? 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 ?? The 10 mg once daily dose is appropriate for assisted secondary prevention ?? Seek medical attention for [...] should the need arise. Audra Fields MD [facility] documented in this encounter Plan of Treatment Upcoming Encounters Date Type Department Care Team (Late st Contact Info) Description 10/27/2023 10:00 AM EDT TH Visit (TeleHealth) [place] [address] Olga Melgar APRN [facility] [place] [address] documented as of this encounter Visit Diagnoses Diagnosis Other pulmonary embolism without acute cor pulmonale, unspecified chronicity Anticoagulated by anticoagulation treatment Encounter for long-term (current) use of anticoagulants documented in this encounter Care Teams Autocad Detailer Relationship Specialty Start Date End Date Candie Skaggs MD [address] [place] [address] PCP - General Family Medicine 03/19/19 documented as of this encounter
--- OUTSIDE RECORDS SUMMARY | 2023-10-19 06:21 | XMS_ITS | Encounter Summary ---
Author Organization [facility] [place] [address] Care Team Providers Care Metal Machine Setter Name Role Phone Candie Skaggs MD Primary Care Provider [phone] Reason for Referral * Consultation (Routine) - Closed Specialty Diagnoses / Procedures Referred By Contac t Referred To Contact [facility] Diagnoses Bilateral hip pain Radiculopathy of lumbar region Lower extremity pain, left Lower extremity pain, right spine- BLE pain/ XR h/p 04/04/22 in Rukhsana Berry PA [facility] [place] [address] [facility] [place] [address] Referral ID Status Reason Start Date Expiration Date V isits Requested Visits Authorized [id number] Closed Consult, Test & Treat 04/04/2022 04/04/2023 1 1 Reason for Visit * Reason Comments Establish Care BILATERAL HIP PAIN? * Consultation (Routine) - Closed Specialty Diagnoses / Procedures Referred By Contac t Referred To Contact Orthopaedics Diagnoses Bilateral hip pain Self mail [facility] [address] [place] [address] Referral ID Status Reason Start Date Expiration Date V isits Requested Visits Authorized [id number] Closed Consult, Test & Treat 03/07/2022 03/07/2023 1 1 Encounter Details Date Type Department Care Team (Late st Contact Info) Description 04/04/2022 4:00 PM EST Office [place] [address] Rukhsana Mills PA [facility] [place] [address] Bilateral hip pain (Primary Dx); Right hand [...] NAME: Abby Ruffin AGE: 86 y.o. MR#: [id number] DATE OF VISIT: 04/04/2022 CHIEF COMPLAINT: whole [...] pain. Right hand dominant. No problem with art appraiser strength. Has shooting sensation right hand and [...] AM EDT TH Visit (TeleHealth) [place] [address] Olga Melgar APRN [facility] [place] [address] Scheduled Referrals Name Type Priority Associated Diagnoses [...] who have questions please contact the health reservoir caretaker that requested your imaging first. ? Electronically signed by: Yolanda Tripp MD, [facility] ([phone]), at 04/05/2022 10:55 AM Narrative 04/05/2022 10:55 AM EST EXAMINATION: XR [...] patients who have questions please contactthe health reservoir caretaker that requested your imaging first. Lino Duke MD IMG DX ORDERABLES * [...] who have questions please contact the health reservoir caretaker that requested your imaging first. ? Electronically signed by: Yolanda Tripp MD, [facility] ([phone]), at 04/05/2022 9:46 AM Narrative 04/05/2022 9:46 [...] patients who have questions please contactthe health reservoir caretaker that requested your imaging first. Lino Duke [...] limb documented in this encounter Care Teams Metal Machine Setter Relationship Specialty Start Date End Date Candie Skaggs MD [address] [address] PCP - General Family Medicine 03/19/19 documented as of this encounter
--- OUTSIDE RECORDS SUMMARY | 2023-10-19 06:21 | XMS_ITS | Encounter Summary ---
Author Organization [facility] [place] [address] Care Team Providers Care Plumbing Installer Name Role Phone Gates, Estee Andino APRN Primary Care Provider [phone] Reason for Visit * Reason Comments Skin Check Encounter Details Date Type Department Care Team (Late st Contact Info) Description 02/01/2014 8:00 AM EST Office Visit Dermatology at [place] [address] [place] [address] Noble Moseley MD [address] [facility] [place] [address] History of SCC (squamous cell carcinoma) of [...] from the original note were not included. [facility] Actinic Keratosis: After Your Visit Your Care [...] more? Visit our health information library at [email or web address] You can also view health information on [employer], your personal patient account. Log in or sign up today. Enter [id number] in the search box to learn more about Actinic Keratosis: After Your Visit. ?? [id number] [employer] Care instructions adapted under license by [facility]. This care instruction is for use with your licensed healthcare professional. If you have questions about a medical condition or this instruction, always ask your healthcare professional. [employer] disclaims any warranty or liability for your use of this information. Content Version: [id number]; Last Revised: March 31, 2012 documented in [...] AM EDT TH Visit (TeleHealth) [place] [address] Olga Melgar APRN [facility] [place] [address] documented as of this encounter Visit Diagnoses Diagnosis History of SCC (squamous cell carcinoma) of skin Personal history of other malignant neoplasm of skin Solar lentigo Other dyschromia documented in this encounter Care Teams Plumbing Installer Relationship Specialty Start Date End Date Estee Novak APRN PCP - General 01/09/10 10/12/14 documented as of this encounter
--- OUTSIDE RECORDS SUMMARY | 2023-10-19 06:21 | XMS_ITS | Encounter Summary ---
Author Organization [facility] [place] [address] Care Team Providers Care Elevator Mechanic Name Role Phone Candie Skaggs MD Primary Care Provider [phone] Reason for Referral * Audiology Exam (Routine) - Closed Specialty Diagnoses / Procedures Referred By Contbrendan t Referred To Contact Audiology Diagnoses Hearing loss, unspecified hearing loss type, unspecified laterality Candie Skaggs MD [address] [place] [address] [facility] [address] [place] [id number] Referral ID Status Reason Start Date Expiration Date V isits Requested Visits Authorized [id number] Closed Specialty Service Requested PCP Updated and/or Approved 04/10/2022 04/10/2023 1 1 Encounter Details Date Type Department Care Team (Latest Contact Info) Description 04/10/2022 Transcribe Orders eDH Incoming Referrals [phone] Candie Skaggs MD [address] [place] [address] Hearing loss, unspecified hearing loss type, [...] AM EDT TH Visit (TeleHealth) [place] [address] Olga Melgar APRN [facility] [place] [address] Scheduled Referrals Name Type Priority Associated Diagnoses Orde r Schedule Referral to Audiology Outpatient Referral Routine Hearing loss, unspecified hearing loss type, unspecified laterality Ordered: 04/10/2022 documented as of this encounter Visit Diagnoses Diagnosis Hearing loss, unspecified hearing loss type, unspecified laterality documented in this encounter Care Teams Elevator Mechanic Relationship Specialty Start Date End Date Candie Skaggs MD [address] [place] [address] PCP - General Family Medicine 03/19/19 documented as of this encounter
--- OUTSIDE RECORDS SUMMARY | 2023-10-19 06:21 | XMS_ITS | Encounter Summary ---
Author Organization [facility] [place] [address] Care Team Providers Care Silo Operator Name Role Phone Candie Skaggs MD Primary Care Provider [phone] Reason for Visit * Reason Comments Travel Consult Encounter Details Date Type Department Care Team (Late st Contact Info) Description 04/15/2022 2:00 PM EST Office Visit [place] [address] Leatha Sanchez, VP [employer] [facility] [place] [address] Counseling for travel; Need for immunization against [...] Destination countries (list from first to last): [facility] ([facility], [facility]) then [facility] ([facility], [facility]) via [place] Departure date: 04/21/22 Length of trip: 1 month Purpose of travel: vacation visiting [place] Type of environment: mountains, urban Accommodations: hotel in [facility] and [facility]; guest house in [facility] Medical History: Medical problems: Patient Active Problem List Diagnosis Code ??? Pulmonary embolism, unprovoked I26.99 ??? Pericardial effusion I31.39 ??? Hypertension I10 ??? GERD (gastroesophageal reflux disease) K21.9 ??? Hyperlipidemia E78.5 ??? 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 History of SCC (squamous cell carcinoma) [...] travel. Follow-up Recommendations: Advised traveler to contact [facility] if travel plans change or other concerns arise. Patient advised to call travel clinic if they return from trip with any illness. Time spent in travel counselin minutes. Vaccine information sheets given. documented in this encounter Plan of Treatment Upcoming Encounters Date Type Department Care Team (Late st Contact Info) Description 10/27/2023 10:00 AM EDT TH Visit (TeleHealth) [place] [address] Olga Melgar APRN [facility] [place] [address] documented as of this encounter Visit Diagnoses Diagnosis Counseling for travel Other specified counseling Need for immunization against typhoid Need for other specified prophylactic vaccination against single bacterial disease documented in this encounter Care Teams Silo Operator Relationship Specialty Start Date End Date Candie Skaggs MD [address] [place] [address] PCP - General Family Medicine 03/19/19 documented as of this encounter
--- OUTSIDE RECORDS SUMMARY | 2023-10-19 06:21 | XMS_ITS | Encounter Summary ---
Author Organization [facility] [place] [address] Care Team Providers Care Supervisor Modern Languages Name Role Phone Kumar Schultz MD Primary Care Provider [phone] Reason for Visit * Reason Comments Abdominal Pain Fatigue * Auth/Cert (Routine) Specialty Diagnoses / Procedures Referred By Contac t Referred To Contact Diagnoses Upper abdominal pain Hypertensive [place] [address] [facility] Referral ID Status Reason Start Date Expiration Date Visits Re quested Visits Authorized [id number] 1 1 Encounter Details Date Type Department Care Team (Late st Contact Info) Description 10/13/2023 10:00 AM EDT - 10/13/2023 10:45 AM EDT [place] [address] Geovanni Bell MD [facility] [address] EGD WITH BIOPSY (WRVU 2.39) Social History Tobacco Use Types Packs/Day Years Used Date Smoking Tobacco: Former Cigarettes 0.5 3 Smokeless Tobacco: Former Quit: 06/22/1979 Alcohol Use Standard Drinks/Week Comments Yes 2 (1 standard drink = 0.6 oz pur e alcohol) [facility] Utilities Answer Date Recorded In [...] any time in the past 12 m [facility], were you homeless or living in a usp (including now)? No 10/13/2023 DH IPV Inpatient [...] Sign Reading Time Taken Comments Blood Pressure 131/65 10/13/2023 10:40 AM EDT Pulse 90 10/13/2023 10:02 AM EDT Temperature 36.5 ??C (97.7 ??F) 10/13/2023 8:35 AM ED T Respiratory Rate 16 10/13/2023 10:40 AM EDT Oxygen Saturation 98% 10/13/2023 10:40 AM EDT Inhaled Oxygen Concentration - - Weight 64.4 kg (142 lb) 10/11/2023 1:33 PM EDT Height 154.9 cm (5' 1) 10/11/2023 11:53 PM EDT Body Mass Index 26.83 10/11/2023 1:33 PM EDT documented in this encounter Discharge Summaries * Valente Bhatt MD - 10/13/2023 1:41 PM EDT Discharge Summary Patient Name: Nelsy Ruffin Patient Age: 87 y.o. Language: Bolivian Race: White Ethnicity: Not nor Admit date: 10/11/2023 Discharge date and time: 10/13/2023 Attending Physician: Valente Bhatt MD Discharge Physician: Valente Bhatt Follow-up Recommendations for Providers: Follow up with GI regarding the EGD biopsy results Follow up the results of stool ova parasite to r/o giardiasis Follow up with the results of old ECHOs done 5-6 years back to rule out any worsening of pericardial effusions and further need of cardiology work up Inpatient Provider Contact Information: For questions regarding this document or issues relating to this hospitalization on the Medical Service, please contact your inpatient physician through the [facility] . Issues afterhours and on weekends will be handled by the Hospitalist staff on-call. Discharge Diagnoses (Hospital Problems) and Secondary Diagnoses (Chronic Problems): Active Hospital Problems Diagnosis Hypertensive urgency Resolved Hospital Problems No resolved problems to display. Active Non-Hospital Problems Diagnosis PMR (polymyalgia rheumatica) Gastroesophageal reflux disease without esophagitis Epigastric pain History of SCC (squamous cell carcinoma) of skin Solar lentigo Squamous cell carcinoma Pulmonary embolism, unprovoked Pericardial effusion Hypertension GERD (gastroesophageal reflux disease) Hyperlipidemia Operations/Major Procedures: Operations: Procedure(s): EGD WITH BIOPSY (WRVU 2.39) 10/13/2023 Other Major Procedures: History of Presentation: 87 y.o. female with history of HTN, HLD PE on Xarelto, Haque's esophagus, who presents to the ED,reporting a few day hx of worsening epigastric pain with radiation to her back associated with nausea, and inability to tolerate p.o. intake. Patient reports an intermittent history of chest discomfort in the epigastric area, radiating to the back, accompanied by nausea, poor oral intake, SOB, and hypertension. She also mentions occasionaldifficulty swallowing solid food. She denies vomiting, fevers, chills, night sweats, weight loss, blood in stool, or black stools. No history of heart disease. She notes that she was recently startedon Protonix by her PCP, which has not provided much relief. She denies smoking and drinks alcohol occasionally. In the ED, patient was found to be hypertensive to 214/91. Lab tests remarkable for hypokalemia 3.1, elevated HS troponin T 17>>16>>15. EKG showed no acute ischemic changes. GI cocktail, LR 500 cc. 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 female with history of HTN, HLD PE on Xarelto, Haque's esophagus, who presents to the ED,reporting a few day hx of worsening epigastric pain with radiation to her back associated with nausea, and inability to tolerate p.o. intake, found to have hypertensive emergency, admitted to [facility] for further management. CT Angiogram Chest Abdomen Pelvis w Contrast ruled out aortic dissection.. she was kept on telemetry monitoring which was uneventful. We continue home HCTZ and Losartan For the blood pressure control. Amlodipine 5 mg daily was added to help improve BP control. TTE ruled out any new RWMA. Pt was noted to have mild to moderate pericardial effusion which is not new according to the pt and was noted on the ECHOs done 5 years back. She is willing to continue follow up with the PCP for any need of further w/up related to pericardial effusion. Add on lipase was negative, TSH was negative at 1.63 and A1C was 6.1 She was continued on iv NS+KCL @100 cc/h to help improveelectrolytes along with continued PPI IV and Zofran Q8H IV PRN for nausea. She underwent EGD and had negative exam and had biopsies taken from stomach and duodenum which are pending at discharge. Stool for O/P was sent and results are pending at discharge. She has been advised outpatient colonoscopy which will be scheduled by the GI team. #Hypokalemia IVF as above Monitor and replete as needed #Hx of PE Continue home Xarelto Vital Signs at Discharge: BP: 165/81, Heart Rate: 54, Temp: 36.5 ??C (97.7 ??F), Resp: 18, Height: 154.9 cm (5' 1) (10/11/23 2353) Weight: 64.4 kg (142 lb) (10/11/23 1333) Functional and Cognitive Status: stable/good Important Studies and Lab Data: Labs: Last 3 wbc, hgb, hct plt Recent Labs 10/13/23 0407 10/12/23 0509 10/11/23 1501 WBC 6.31 5.10 6.04 HGB 11.8 11.3* 12.0 HCT 34.6* 33.2* 34.5* PLATELET 240 229 246 Last 3 Lytes Recent Labs 10/13/23 0407 10/12/23 0509 10/11/23 1501 NA 142 143 144 K 3.2* 3.0* 3.1* CL 109* 109* 107 CO2 20* 23 23 BUN 10 12 14 CREATININE 0.95 0.91 0.91 Last 3 LFTs Recent Labs 10/12/23 0509 10/11/23 1501 AST 15 16 ALT 14 16 ALKPHOS 46 51 BILITOT 1.4* 1.1 BILIDIR 0.2 0.2 Studies: Results for orders placed or performed during the hospital encounter of 10/11/23 CT Angiogram Chest Abdomen Pelvis w Contrast (Exam End: 10/11/2023 3:44 PM) Result Value WORKSTATION ID [id number] Impression 1. No aortic dissection or acute aortic pathology. 2. Scattered mild to moderate atheromatous plaque in the aorta and some branch vessels. 3. Small pericardial effusion. 4. No acute CT findings in the abdomen or pelvis. 5. Colonic diverticulosis. 6. Other incidental findings, as described above. 7. Thank you for letting us participate in the care of this patient. If you are a health care provider and have any questions regarding this report, please contact the number below. For patients who have questions please contact the health physician primary care sports medicine that requested your imaging first. 10/12 Impression: - Esophagogastric landmarks identified. - Esophageal mucosal changes secondary to established short-segment Haque's disease, classified as Haque's stage C0-M1 per Section criteria. Biopsied. - Normal stomach. Biopsied. - Normal examined duodenum. Biopsied. Recommendation: - Await pathology results. - Return patient to [facility] for [facility] care. - Recommend seeing inpatient dietitian prior to discharge - We will arrange outpatient GI follow-up and colonoscopy - Continue on PPI indefinitely and repeat EGD in 3-5 years for Haque's. ECHO 10/12 Interpretation Summary 1. The left ventricle is [...] small pericardial effusion since at least 2010. Pending Studies and Lab Data: -final results of EGD biopsies -final results of stool O/P exam Discharge Conditions/Prognosis: stable/fair Discharge to: home Updated Allergies/ADRs: Allergies Allergen Reactions Codeine Phosphate Nausea And Vomiting Immunizations Given this Hospitalization: Immunization History Administered Date(s) Administered Hepatitis A Adult (HavRix, Vaqta) 10/14/2014 Hepatitis A, Unspecified Formulation 02/03/2006 Hepatitis B Unspecified Formulation 05/08/2009 Inactivated Polio Vaccine (IPOL) 02/03/2006, 03/10/2006, 09/08/2006 Influenza (Fluzone HD) Trivalent High Dose 12/29/2018 Brannon Monovalent Covid-19 Vaccine 12/12/2020 Moderna Covid-19 Monovalent 12Yr+ (Electrical Equipment Tester 100mcg) 04/27/2021 Pneumococcal Polysaccharide (Pneumovax 23) 07/15/2012 TD Adult 02/03/2006 Tdap 07/15/2012 Typhoid Live, Oral 02/03/2006, 10/14/2014 Typhoid, VICP 04/15/2022 Zoster (Zostavax) LIVE 05/08/2009 Discharge Medications: Your Medications New Medications Dose Details amLODIPine 5 mg tablet Commonly known as: Norvasc Take 1 tablet by mouth daily. 5 mg Quantity: 90 tablet Refills: 3 zkiqzulpa-fspboyixb-xp-mag-sim [id number] mg/30 mL Suspension Take 5 mLs by mouth 3 times daily. 5 mL Quantity: 237 mL Refills: 3 pantopraz[address] EC [address] tablet Commonly known as: Protonix Take 1 tablet by mouth 2 times daily. 40 mg Quantity: 90 tablet Refills: 3 Continued medications, unchanged Dose Details estradioL 0.01 % (0.1 mg/gram) Cream Commonly known as: ESTRACE estradiol 0.01% (0.1 mg/gram) vaginal cream APPLY ONE GRAM VAGINALLY TWICE A WEEK Refills: 0 hydroCHLOROthiazide 12.5 mg tablet hydrochlorothiazide 12.5 mg tablet TAKE ONE TABLET BY MOUTH EVERY MORNING Refills: 0 hydrocortisone 2.5 % Cream Apply to affected area of the nose twice daily as needed. Quantity: 30 g Refills: 0 latanoprost 0.005 % Drops Commonly known as: Xalatan latanoprost 0.005 % eye drops INSTILL ONE DROP INTO BOTH EYE AT BEDTIME - SHAKE BEFORE USE Refills: 0 losartan 100 mg tablet Commonly known as: Cozaar losartan 100 mg tablet TAKE ONE TABLET BY MOUTH EVERY MORNING IF SYSTOLIC BLOOD PRESSURE > 120 Refills: 0 NIFEdipine 10 mg capsule Commonly known as: Procardia nifedipine 10 mg capsule GARCIA CAPSULE AND SWALLOW CONTENTS ONCE IF NEEDED FOR FOR BLOOD PRESSURE OVER 170 Refills: 0 potassium chloride 20 mEq ER tablet Commonly known as: Klor-Con, K-Tab as needed. Refills: 0 prochlorperazine 5 mg tablet Commonly known as: Compazine Take 1 tablet by mouth every 6 hours as needed for Nausea. 5 mg Quantity: 15 tablet Refills: 0 rivaroxaban 10 mg tablet Commonly known as: Xarelto Take 10 mg by mouth daily. 10 mg Refills: 0 valACYclovir 1 gram tablet Commonly known as: Valtrex as needed. Refills: 0 VITAMIN D-3 ORAL Take by mouth. Refills: 0 Smoking Status at Discharge: Social History Tobacco Use Smoking Status Former Current packs/day: 0.50 Average packs/day: 0.5 packs/day for 3.0 years (1.5 ttl pk-yrs) Types: Cigarettes Smokeless Tobacco Former Quit date: 06/22/1979 Instructions Given to Patient at Discharge: Patient Instructions Instructions on Discharge to Home Why you were hospitalized - dyspepsia Call your doctor or seek medical attention if you develop the following - chest pain, shortness of breath, fever, cough, weakness in an arm or leg Activity level - no restrictions Diet - no change in previous diet Driving - as before hospitalization Shower/Bath - permitted Wound Care - none Home Oxygen therapy - none Specific instructions related to your condition: Continued follow up with GI and PCP Follow-up: You are scheduled for a PCP follow up on 10/26 at 3:30pm Your Inpatient Doctor: Valente Bhatt MD Your Primary Care Provider: Kumar Schultz MD [phone] For questions regarding this document or issues relating to this hospitalization on the Medical Service, please contact your inpatient physician through the [facility] . Issues afterhours and on weekends will be handled by the Hospitalist staff on-call. General Instructions Upper GI Endoscopy: What to Expect at Home Your Recovery You will be able to go home after your doctor or nurse checks to make sure you are not having any problems. You may have to stay overnight if you had treatment during the test. You may have a sore throat fora day or two after the test. This care sheet gives you a general idea about what to expect after the test. How can you care for yourself at home? Activity Rest when you feel tired. You can do your normal activities when it feels okay to do so. Diet Follow your doctor's directions for eating. Unless your doctor has told you not to, drink plenty of fluids. This helps to replace the fluids that were lost during the prep. Do not drink alcohol. Medicines Your doctor will tell you if and when you can restart your medicines. He or she will also give you instructions about taking any new medicines. If you take blood thinners, such as warfarin (Coumadin), clopidogrel (Plavix), or aspirin, be sure to talk to your doctor. He or she will tell you if and when to start taking those medicines again. Make sure that you understand exactly what your doctor wants you to do. If polyps were removed or a biopsy was done during the test, your doctor may tell you not to take aspirin or other anti-inflammatory medicines for a few days. These include ibuprofen (Advil, Motrin) and naproxen (Aleve). If you have a sore throat the day after the procedure, use an dgpr-zpx-wgegllz spray to numb your throat. Sucking on throat lozenges and gargling with warm salt water may also help relieve your symptoms. Other instructions For your safety, do not drive or operate machinery until the medicine wears off and you can think clearly. Your doctor may tell you not to drive or operate machinery until the day after your test. Do not sign legal documents or make major decisions until the medicine wears off and you can think clearly. The anesthesia can make it hard for you to fully understand what you are agreeing to. Additional Information for Sedation Patients For patients who received sedation: You may have received medications before and/or during your procedure which effects your judgement and reaction time. Do not drive, operate machinery, drink alcoholic beverages or make important decisions for 24 hours. Be careful on stairs as you may be unsteady on your feet. You may eat a regular diet as tolerated. Do not smoke if you are alone. IV site: Slight redness or tenderness is normal, you can use a warm compress if you would like. If tenderness and/or redness increase or if foul drainage occurs, please contact your Doctor. Please call [phone] before 8pm Mon-Fri with problems, questions or concerns. If you call after 8pm or on weekends, call the Hospital at [phone] and ask to speak to the Diagnostic Sales Specialist lithography contact worker and the tier lift truck operator will contact that person for you. When should you call for help? Call 911 anytime you think you may need emergency care. For example, call if: You passed out (lost consciousness). You pass maroon or bloody stools. You have trouble breathing. Call your doctor now or seek immediate medical care if: You have pain that does not get better after you take pain medicine. You are sick to your stomach or cannot drink fluids. You have new or worse belly pain. You have blood in your stools. You have a fever. You cannot pass stools or gas. Watch closely for changes in your health, and be sure to contact your doctor if you have any problems. Where can you learn more? [facility] View your After Visit Summary and more online at [email or web address] If you would like to provide feedback about your hospital experience, please call the Office of Patient and Family Relations at . If you have received this After Visit Summary in error, please immediately return it in person to the department, or notify the [facility] Privacy Office by calling toll free at between the hours of 8AM and 5PM to arrange for our retrieval of the documents at no cost to you. Content Version: 12.2 ?? 6184-1404 [employer]. Care instructions adapted under license by [facility]. If you have questions about a medical condition or this instruction, always ask your healthcare professional. [employer] disclaims any warranty or liability for your use of this information.Upper GI Endoscopy: What to Expect at Home Your Recovery You will be able to go home after your doctor or nurse checks to make sure you are not having any problems. You may have to stay overnight if you had treatment during the test. You may have a sore throat fora day or two after the test. This care sheet gives you a general idea about what to expect after the test. How can you care for yourself at home? Activity Rest when you feel tired. You can do your normal activities when it feels okay to do so. Diet Follow your doctor's directions for eating. Unless your doctor has told you not to, drink plenty of fluids. This helps to replace the fluids that were lost during the prep. Do not drink alcohol. Medicines Your doctor will tell you if and when you can restart your medicines. He or she will also give you instructions about taking any new medicines. If you take blood thinners, such as warfarin (Coumadin), clopidogrel (Plavix), or aspirin, be sure to talk to your doctor. He or she will tell you if and when to start taking those medicines again. Make sure that you understand exactly what your doctor wants you to do. If polyps were removed or a biopsy was done during the test, your doctor may tell you not to take aspirin or other anti-inflammatory medicines for a few days. These include ibuprofen (Advil, Motrin) and naproxen (Aleve). If you have a sore throat the day after the procedure, use an lwkl-fbq-ujkiprh spray to numb your throat. Sucking on throat lozenges and gargling with warm salt water may also help relieve your symptoms. Other instructions For your safety, do not drive or operate machinery until the medicine wears off and you can think clearly. Your doctor may tell you not to drive or operate machinery until the day after your test. Do not sign legal documents or make major decisions until the medicine wears off and you can think clearly. The anesthesia can make it hard for you to fully understand what you are agreeing to. Additional Information for Sedation Patients For patients who received sedation: You may have received medications before and/or during your procedure which effects your judgement and reaction time. Do not drive, operate machinery, drink alcoholic beverages or make important decisions for 24 hours. Be careful on stairs as you may be unsteady on your feet. You may eat a regular diet as tolerated. Do not smoke if you are alone. IV site: Slight redness or tenderness is normal, you can use a warm compress if you would like. If tenderness and/or redness increase or if foul drainage occurs, please contact your Doctor. Please call [phone] before 8pm Mon-Fri with problems, questions or concerns. If you call after 8pm or on weekends, call the Hospital at [phone] and ask to speak to the Diagnostic Sales Specialist lithography contact worker and the tier lift truck operator will contact that person for you. When should you call for help? Call 432 anytime you think you may need emergency care. For example, call if: You passed out (lost consciousness). You pass maroon or bloody stools. You have trouble breathing. Call your doctor now or seek immediate medical care if: You have pain that does not get better after you take pain medicine. You are sick to your stomach or cannot drink fluids. You have new or worse belly pain. You have blood in your stools. You have a fever. You cannot pass stools or gas. Watch closely for changes in your health, and be sure to contact your doctor if you have any problems. Where can you learn more? [facility] View your After Visit Summary and more online at [email or web address] If you would like to provide feedback about your hospital experience, please call the Office of Patient and Family Relations at . If you have received this After Visit Summary in error, please immediately return it in person to the department, or notify the [facility] Privacy Office by calling toll free at between the hours of 8AM and 5PM to arrange for our retrieval of the documents at no cost to you. Content Version: 12.2 ?? 9542-2523 Onfan. Care instructions adapted under license by [facility]. If you have questions about a medical condition or this instruction, always ask your healthcare professional. [employer] disclaims any warranty or liability for your use of this information. YOU ARE SCHEDULED FOR A FOLLOW UP APPOINTMENT WITH YOUR PRIMARY CARE PROVIDER, DR KUMAR SCHULTZ, ON 10/27/2023 AT 3:30PM Future Appointments and Orders Future Orders Complete By Expires Referral to Nutrition Services [REF50 Custom] As directed Process Instructions: If no progress note charted, please enter Clinical details in comments. Scheduling Instructions: Questions: Type Of Medical Nutrition Therapy (MNT): Initial MNT Discharge References/Attachments None documented in this encounter Discharge Instructions * Discharge Instructions* Katharina Martin CMA - 10/11/2023 7:55 PM EDT Upper GI Endoscopy: What to Expect at Home Your Recovery You will be able to go home after your doctor or nurse checks to make sure you are not having any problems. You may have to stay overnight if you had treatment during the test. You may have a sore throat fora day or two after the test. This care sheet gives you a general idea about what to expect after the test. How can you care for yourself at home? Activity Rest when you feel tired. You can do your normal activities when it feels okay to do so. Diet Follow your doctor's directions for eating. Unless your doctor has told you not to, drink plenty of fluids. This helps to replace the fluids that were lost during the prep. Do not drink alcohol. Medicines Your doctor will tell you if and when you can restart your medicines. He or she will also give you instructions about taking any new medicines. If you take blood thinners, such as warfarin (Coumadin), clopidogrel (Plavix), or aspirin, be sure to talk to your doctor. He or she will tell you if and when to start taking those medicines again. Make sure that you understand exactly what your doctor wants you to do. If polyps were removed or a biopsy was done during the test, your doctor may tell you not to take aspirin or other anti-inflammatory medicines for a few days. These include ibuprofen (Advil, Motrin) and naproxen (Aleve). If you have a sore throat the day after the procedure, use an ntcp-gay-lrvsyak spray to numb your throat. Sucking on throat lozenges and gargling with warm salt water may also help relieve your symptoms. Other instructions For your safety, do not drive or operate machinery until the medicine wears off and you can think clearly. Your doctor may tell you not to drive or operate machinery until the day after your test. Do not sign legal documents or make major decisions until the medicine wears off and you can think clearly. The anesthesia can make it hard for you to fully understand what you are agreeing to. Additional Information for Sedation Patients For patients who received sedation: You may have received medications before and/or during your procedure which effects your judgement and reaction time. Do not drive, operate machinery, drink alcoholic beverages or make important decisions for 24 hours. Be careful on stairs as you may be unsteady on your feet. You may eat a regular diet as tolerated. Do not smoke if you are alone. IV site: Slight redness or tenderness is normal, you can use a warm compress if you would like. If tenderness and/or redness increase or if foul drainage occurs, please contact your Doctor. Please call [phone] before 8pm Mon-Fri with problems, questions or concerns. If you call after 8pm or on weekends, call the Hospital at [phone] and ask to speak to the Diagnostic Sales Specialist lithography contact worker and the tier lift truck operator will contact that person for you. When should you call for help? Call 911 anytime you think you may need emergency care. For example, call if: You passed out (lost consciousness). You pass maroon or bloody stools. You have trouble breathing. Call your doctor now or seek immediate medical care if: You have pain that does not get better after you take pain medicine. You are sick to your stomach or cannot drink fluids. You have new or worse belly pain. You have blood in your stools. You have a fever. You cannot pass stools or gas. Watch closely for changes in your health, and be sure to contact your doctor if you have any problems. Where can you learn more? [facility] View your After Visit Summary and more online at [email or web address] If you would like to provide feedback about your hospital experience, please call the Office of Patient and Family Relations at . If you have received this After Visit Summary in error, please immediately return it in person to the department, or notify the [facility] Privacy Office by calling toll free at between the hours of 8AM and 5PM to arrange for our retrieval of the documents at no cost to you. Content Version: 12.2 ?? 6466-4840 Onfan. Care instructions adapted under license by [facility]. If you have questions about a medical condition or this instruction, always ask your healthcare professional. [employer] disclaims any warranty or liability for your use of this information.Upper GI Endoscopy: What to Expect at Home Your Recovery You will be able to go home after your doctor or nurse checks to make sure you are not having any problems. You may have to stay overnight if you had treatment during the test. You may have a sore throat fora day or two after the test. This care sheet gives you a general idea about what to expect after the test. How can you care for yourself at home? Activity Rest when you feel tired. You can do your normal activities when it feels okay to do so. Diet Follow your doctor's directions for eating. Unless your doctor has told you not to, drink plenty of fluids. This helps to replace the fluids that were lost during the prep. Do not drink alcohol. Medicines Your doctor will tell you if and when you can restart your medicines. He or she will also give you instructions about taking any new medicines. If you take blood thinners, such as warfarin (Coumadin), clopidogrel (Plavix), or aspirin, be sure to talk to your doctor. He or she will tell you if and when to start taking those medicines again. Make sure that you understand exactly what your doctor wants you to do. If polyps were removed or a biopsy was done during the test, your doctor may tell you not to take aspirin or other anti-inflammatory medicines for a few days. These include ibuprofen (Advil, Motrin) and naproxen (Aleve). If you have a sore throat the day after the procedure, use an bkbm-ekq-wdlvdrv spray to numb your throat. Sucking on throat lozenges and gargling with warm salt water may also help relieve your symptoms. Other instructions For your safety, do not drive or operate machinery until the medicine wears off and you can think clearly. Your doctor may tell you not to drive or operate machinery until the day after your test. Do not sign legal documents or make major decisions until the medicine wears off and you can think clearly. The anesthesia can make it hard for you to fully understand what you are agreeing to. Additional Information for Sedation Patients For patients who received sedation: You may have received medications before and/or during your procedure which effects your judgement and reaction time. Do not drive, operate machinery, drink alcoholic beverages or make important decisions for 24 hours. Be careful on stairs as you may be unsteady on your feet. You may eat a regular diet as tolerated. Do not smoke if you are alone. IV site: Slight redness or tenderness is normal, you can use a warm compress if you would like. If tenderness and/or redness increase or if foul drainage occurs, please contact your Doctor. Please call [phone] before 8pm Mon-Fri with problems, questions or concerns. If you call after 8pm or on weekends, call the Hospital at [phone] and ask to speak to the Diagnostic Sales Specialist lithography contact worker and the tier lift truck operator will contact that person for you. When should you call for help? Call 911 anytime you think you may need emergency care. For example, call if: You passed out (lost consciousness). You pass maroon or bloody stools. You have trouble breathing. Call your doctor now or seek immediate medical care if: You have pain that does not get better after you take pain medicine. You are sick to your stomach or cannot drink fluids. You have new or worse belly pain. You have blood in your stools. You have a fever. You cannot pass stools or gas. Watch closely for changes in your health, and be sure to contact your doctor if you have any problems. Where can you learn more? [facility] View your After Visit Summary and more online at [email or web address] If you would like to provide feedback about your hospital experience, please call the Office of Patient and Family Relations at . If you have received this After Visit Summary in error, please immediately return it in person to the department, or notify the [facility] Privacy Office by calling toll free at between the hours of 8AM and 5PM to arrange for our retrieval of the documents at no cost to you. Content Version: 12.2 ?? 3009-7282 Onfan. Care instructions adapted under license by [facility]. If you have questions about a medical condition or this instruction, always ask your healthcare professional. [employer] disclaims any warranty or liability for your use of this information. YOU ARE SCHEDULED FOR A FOLLOW UP APPOINTMENT WITH YOUR PRIMARY CARE PROVIDER, DR KUMAR SCHULTZ, ON 10/27/2023 AT 3:30PM * Patient Instructions* Valente Bhatt MD - 10/13/2023 1:57 PM EDT Instructions on Discharge to Home Why you were hospitalized - dyspepsia Call your doctor or seek medical attention if you develop the following - chest pain, shortness of breath, fever, cough, weakness in an arm or leg Activity level - no restrictions Diet - no change in previous diet Driving - as before hospitalization Shower/Bath - permitted Wound Care - none Home Oxygen therapy - none Specific instructions related to your condition: Continued follow up with GI and PCP Follow-up: You are scheduled for a PCP follow up on 10/26 at 3:30pm Your Inpatient Doctor: Valente Bhatt MD Your Primary Care Provider: Kumar Schultz MD [phone] For questions regarding this document or issues relating to this hospitalization on the Medical Service, please contact your inpatient physician through the [facility] . Issues afterhours and on weekends will be handled by the Hospitalist staff on-call. documented in this encounter Medications at Time of Discharge Medication Sig Dispensed Refills Start Date End Date amLODIPine (Norvasc) 5 mg tablet Take 1 tablet by mouth daily. 90 tablet 3 10/13/2023 diphenhydrAMINE/al uminum-magnesium hydroxide with simethicone/lidoca ine (BMX) (6.67 mg-0.83 mg-13.33 mg-1.33 mg/mL) oral liquid Take 5 mLs by mouth 3 times daily. 237 mL 3 10/13/2023 pantoprazole EC (Protonix) [address] tablet Take 1 tablet by mouth 2 times daily. 90 tablet 3 10/13/2023 hydrocortisone 2.5 % CreamIndications:D ermatitis Apply to affected area of the nose twice daily as needed. 30 g 01/24/2023 prochlorperazine (Compazine) 5 mg Tablet Take 1 tablet by mouth every 6 hours as needed for Nausea. 15 tablet 04/15/2022 calcium carbonate/vitamin D3 (VITAMIN D-3 ORAL) Take by mouth. estradioL (ESTRACE) 0.01 % (0.1 mg/gram) Cream estradiol 0.01% (0.1 mg/gram) vaginal cream APPLY ONE GRAM VAGINALLY TWICE A WEEK 12/16/2019 hydroCHLOROthiazid e (Hydrodiuril) 12.5 mg Tablet hydrochlorothiazide 12.5 mg [...] mouth daily. documented as of this encounter Progress Notes * Alicia Castillo, RD - 10/13/2023 3:45 PM EDT Nutrition Consult Note Nelsy Ruffin is a 87 y.o. female with history of HTN, HLD PE on Xarelto, Haque's esophagus, who presents to the ED, reporting a few day hx of worsening epigastric pain with radiation to her back associated with nausea, and inability to tolerate p.o. intake. Reason for Assessment: MST Evaluation Nutrition Recommendations: Regular Diet Trial Ensure Plus (350 kcal and 20g protein) Record % PO intake Monitor and replete lytes as indicated - KCL given Monitor BM Daily weights Follow up with outpatient RD I was able to discuss plan with provider Medicine 2800 Current Nutrition Regimen: Active Orders Diet Regular diet Frequency: Effective Now Number of Occurrences: Until Specified Assessment: Lab Results Component Value Date NA 142 10/13/2023 K 3.2 (L) 10/13/2023 CL 109 (H) 10/13/2023 CO2 20 (L) 10/13/2023 BUN 10 10/13/2023 CREATININE 0.95 10/13/2023 MAGNESIUM 0.76 10/13/2023 CALCIUM 9.3 10/13/2023 PHOS 3.4 10/12/2023 AST 15 10/12/2023 ALT 14 10/12/2023 ALKPHOS 46 10/12/2023 BILITOT 1.4 (H) 10/12/2023 BILIDIR 0.2 10/12/2023 HA1C 6.1 (H) 10/11/2023 No results found for: POCGLU Patient Lines/Drains/Airways Status Active Nutritional LDAs Name Placement date Placement time Site Days PIV 10/11/23 1400 20 gauge median cubital vein (antecubital fossa), right 10/11/23 1400 -- 2 External Catheter 10/12/23 1432 10/12/23 1432 -- 1 Oxygen Therapy / Airway Device: None (Room air) Last Bowel Movement: 10/12/23 Intake/Output Summary (Last 24 hours) at 10/13/2023 1612 Last data filed at 10/13/2023 1030 Gross per 24 hour Intake 225 ml Output 1100 ml Net -875 ml Relevant medications: Continuous Scheduled amLODIPine 5 mg Oral Daily fijalvsqp-vbdtokzur-hp-mag-sim 5 mL Oral TID rivaroxaban 10 mg Oral Daily losartan 100 mg Oral Daily sodium chloride 0.9 % (flush) 5 mL Intravenous BID pantoprazole 40 mg Intravenous BID hydroCHLOROthiazide 12.5 mg Oral Daily PRN hydrALAZINE, prochlorperazine OR prochlorperazine, ondansetron, sodium chloride 0.9 % (flush), lidocaine, melatonin Anthropometrics: Admit Weight: 64.41 kg Estimated body mass index is 26.83 kg/m?? as calculated from the following: Height as of this encounter: 154.9 cm (5' 1). Weight as of this encounter: 64.4 kg (142 lb). [place] Body Weight (IBW) (kg): 47.73 Wt Readings from Last 10 Encounters: 10/11/23 64.4 kg (142 lb) 06/10/22 64.4 kg (142 lb) 06/10/22 64.4 kg (142 lb) 04/04/22 65.8 kg (145 lb) 07/05/21 67 kg (147 lb 9.6 oz) 04/05/11 68.5 kg (151 lb 0.2 oz) 03/18/11 69 kg (152 lb 1.9 oz) 01/14/11 68.9 kg (152 lb) Patient Vitals for the past 168 hrs: Weight 10/11/23 1333 64.4 kg (142 lb) Weight Source: Reported Estimated / Assessed Needs: Kcal / K - 1932 Kcal (25 Kcal/Kg - 30 Kcal/Kg) Estimated Protein Needs: 57 g - 72 g (1.2 g/Kg - 1.5 g/Kg) IBW 47.73kg Nutrition intake and intake history / interview: 10/12: Nutrition consulted for MST evaluation, flex o writer operator met with Adriana and her at bedside. Adriana reports epigastric pain and nausea, relying on soup and toast for intake lately. She reports 8# weight loss in recent weeks, though unable to quantify UBW. Unsure what is causing epigastric pain, awaiting EGD results. Offered Ensure to supplement intake, trial sent. Nelsy notes GERD and avoiding spicy foods, tomato sauces, and other foods. Professor Of History also suggested follow up with outpatientRD (consider GI if followed up by GI clinic), pt to reach out to provider. Nutrition Focused Physical Exam: Performed (10/13/23 by HD) . Subcutaneous Fat Loss Orbital region: Mild Upper arm region (triceps/biceps): None present Thoracic and Lumbar regions (ribs, lower back, and maxillary line): Not assessed Lean Muscle Loss Jewish region (temporalis muscle): None present Clavicle bone region (pectoralis major): Mild Dorsal hand (interosseous muscle): Mild Shoulder (deltoid): Mild Scapular bone region (latissimus dorsi, trapezius muscles): Not assessed Thigh region (quadriceps muscle): None present Posterior calf region (gastrocnemius muscle): None present Malnutrition Diagnosis: Not enough data to assess (Laith et al, JPEN J Parenteral Enteral Nutr. 2011; 36(3): 273-83) Nutrition to continue to follow up while inpatient Alicia Jameson, MS, RDN, LD Clinical Nutrition * Valente Bhatt MD - 10/13/2023 2:02 PM EDT Hospital Medicine - Attending Day of Discharge Documentation Discharge diagnosis Active Hospital Problems Diagnosis Hypertensive urgency Resolved Hospital Problems No resolved problems to display. Secondary Issues Active Non-Hospital Problems Diagnosis PMR (polymyalgia rheumatica) Gastroesophageal reflux disease without esophagitis Epigastric pain History of SCC (squamous cell carcinoma) of skin Solar lentigo Squamous cell carcinoma Pulmonary embolism, unprovoked Pericardial effusion Hypertension GERD (gastroesophageal reflux disease) Hyperlipidemia I have personally seen and examined the patient and they are ready for discharge. Select the appropriate statement that describes your involvement and care and omit the other: I spent >30 minutes (Day of Discharge Code 70178) involved in the final examination of the patient, discussion of the hospital stay, instructions for continuing care to all relevant caregivers, and preparation of discharge records, prescriptions and referral forms. Plans Discharge to home Follow-up scheduled with PCP, GI clinic Please see the Discharge Summary for complete details of any medication changes and additional plans. * Damari Squires RN - 10/13/2023 10:58 AM EDT Patient alert and oriented; VSs stable on RA. Patient denies pain,N/V s/p EGD. Report provided to LINDEN Krishna. * Elza Wagner RN - 10/13/2023 5:33 AM EDT Illness Severity [x] Stable [] Watcher [] Unstable Patient Summary Reason for admission: Worsening epigastric pain radiating to back w/ nausea and inability to tolerate PO intake Relevant PMH: HTN, HLD, PE on Xarelto, Haque's esophagus, GERD, SCC, pericardial effusion Significant 24 hour events: 10/10 PM: Pt A&OX4. Pt is on room air saturating >90%. Pt. Is sinus argenis/ NSR on Tele. Pt. Had an episode of increased BP. Notified, one time dose hydralazine ordered and administered. Patient is anxious and refuses to take ordered anxiety medication. Patient reports anxiety medication would increase her anxiety. Pt. Ambulates round the unit with a walker or standby assist with RN/LEAD SHAREPOINT DEVELOPER.Patient will possibly have an EGD on 10/11. Pt. Has been NPO since midnight. Action List NPO since midnight Monitor epigastric discomfort Telemetry IVF EGD today * Valente Bhatt MD - 10/12/2023 11:17 AM EDT [facility] Medicine Attending Daily Progress Note Admit Date: 10/11/2023 Hospital Day 1 day Active Hospital Problems Diagnosis Hypertensive urgency Resolved Hospital Problems No resolved problems to display. PMH Active Non-Hospital Problems Diagnosis PMR (polymyalgia rheumatica) Gastroesophageal reflux disease without esophagitis Epigastric pain History of SCC (squamous cell carcinoma) of skin Solar lentigo Squamous cell carcinoma Pulmonary embolism, unprovoked Pericardial effusion Hypertension GERD (gastroesophageal reflux disease) Hyperlipidemia Inpatient Medications: Scheduled rivaroxaban 10 mg Oral Daily potassium chloride 10 mEq Intravenous Q2H ifzqdiqce-tgvotacfd-xb-mag-sim 5 mL Oral BID losartan 100 mg Oral Daily sodium chloride 0.9 % (flush) 5 mL Intravenous BID pantoprazole 40 mg Intravenous BID hydroCHLOROthiazide 12.5 mg Oral Daily Continuous infusions: sodium chloride 0.9% with potassium chloride 20 mEq 100 mL/hr (10/12/23 0902) PRN: prochlorperazine OR prochlorperazine, ondansetron, sodium chloride 0.9 % (flush), lidocaine, melatonin Interval History: Pt seen and examined. She continues to have intermittent chest pain, increased reflux frequency. GI team to scope the pt tomorrow am. ROS: as noted above Physical Exam Vitals Range last 24 hrs Temperature Temp: [36.2 ??C (97.2 ??F)-36.8 ??C (98.2 ??F)] Heart Rate Heart Rate: [50-97] Blood Pressure BP: (122-214)/(41-98) Respiratory Rate Resp: [10-27] SpO2 SpO2: [94 %-100 %] Intake/Output Summary (Last 24 hours) at 10/12/2023 1117 Last data filed at 10/12/2023 0902 Gross per 24 hour Intake 1518 ml Output -- Net 1518 ml Patient Vitals for the past 168 hrs: Weight 10/11/23 1333 64.4 kg (142 lb) Body mass index is 26.83 kg/m??. Physical Exam Constitutional: General: She is not in acute distress. Appearance: She is not ill-appearing. HENT: Head: Normocephalic and atraumatic. Mouth/Throat: Pharynx: Oropharynx is clear. Eyes: Extraocular Movements: Extraocular movements intact. Pupils: Pupils are equal, round, and reactive to light. Cardiovascular: Rate and Rhythm: Normal rate. Rhythm irregular. Pulmonary: Effort: No respiratory distress. Breath sounds: No wheezing. Abdominal: General: There is no distension. Tenderness: There is no abdominal tenderness. Musculoskeletal: Cervical back: No rigidity or tenderness. Right lower leg: No edema. Left lower leg: No edema. Skin: Coloration: Skin is not jaundiced or pale. Neurological: General: No focal deficit present. Cranial Nerves: No cranial nerve deficit. Sensory: No sensory deficit. Psychiatric: Mood and Affect: Mood normal. Studies reviewed in eDH. Remarkable for the following: LABS: Last 3 wbc, hgb, hct plt Recent Labs 10/12/23 0509 10/11/23 1501 WBC 5.10 6.04 HGB 11.3* 12.0 HCT 33.2* 34.5* PLATELET 229 246 Last 3 Lytes Recent Labs 10/12/23 0509 10/11/23 1501 NA 143 144 K 3.0* 3.1* CL 109* 107 CO2 23 23 BUN 12 14 CREATININE 0.91 0.91 Last 3 LFTs Recent Labs 10/12/23 0509 10/11/23 1501 AST 15 16 ALT 14 16 ALKPHOS 46 51 BILITOT 1.4* 1.1 BILIDIR 0.2 0.2 FSBG Trend No results for input(s): POCGLU in the last 72 hours. MICRO: No results for input(s): URINECULTURE in the last 720 hours. No results for input(s): GRAMSTAIN, BFCX, LOWERRESPCX, TISSUECX in the last 720 hours. No results for input(s): BLOODCX in the last 720 hours. ECG: Recent Labs 10/11/23 1449 DIAGLINE Sinus bradycardia Low voltage QRS Cannot rule out Anteroseptal infarct (cited on or before 21-JUN-2010) Abnormal ECG When compared with ECG of 21-JUN-2010 10:35, Questionable change in initial forces of Anteroseptal leads Confirmed by MD CELIS ARMIN ([id number]) on 10/11/2023 3:30:54 PM QTCCALC 401 VASCULAR: No results for input(s): VBTEXTRPT in the last 720 hours. IMAGING: Results for orders placed or performed during the hospital encounter of 08/24/24 CT Angiogram Chest Abdomen Pelvis w Contrast (Exam End: 10/11/2023 3:44 PM) Result Value WORKSTATION ID [id number] Impression 1. No aortic dissection or acute aortic pathology. 2. Scattered mild to moderate atheromatous plaque in the aorta and some branch vessels. 3. Small pericardial effusion. 4. No acute CT findings in the abdomen or pelvis. 5. Colonic diverticulosis. 6. Other incidental findings, as described above. 7. Thank you for letting us participate in the care of this patient. If you are a health care provider and have any questions regarding this report, please contact the number below. For patients who have questions please contact the health physician primary care sports medicine that requested your imaging first. R Studies: Assessment: 87 y.o. female with history of HTN, HLD PE on Xarelto, Haque's esophagus, who presents to the ED,reporting a few day hx of worsening epigastric pain with radiation to her back associated with nausea, and inability to tolerate p.o. intake, found to have hypertensive emergency, admitted to [facility] for further management. GI team to take the pt for EGD tomorrow am. NPO at ND. #NSTEMI likely type II i/s/o hypertensive emergency #Small pericardial effusion CT Angiogram Chest Abdomen Pelvis w Contrast ruled out aortic dissection Telemetry monitoring Continue home HCTZ and Losartan Consider adding Carvedilol for BP control TTE to r/o rWMA #Nausea #PO intolerance #Dysphagia #Hx of Haque's esophagus Add on lipase, TSH, A1C Continue IV: NS+KCL @100 cc/h PPI IV Zofran Q8H IV PRN for nausea #Hypokalemia IVF as above Monitor and replete as needed #Hx of PE Continue home Xarelto DVT PPx: Xarelto IV access:piv Tubes/Drains: DVT PPX: Anticipated Disposition: pending course Goals of Care: Team Pager( Coverage 09/09): #[phone] PCP: Kumar Schultz MD [phone] Attestation: IPI Certification I certify that I am a [facility] credentialed attending provider with admitting privileges and that the patient meets or has met medical necessity to require an inpatient IPI level of care meeting a minimumof two midnights or is on the [facility] inpatient only procedure list (status C) due to: HTN urgency. Valente Bhatt MD 10/12/2023 * Elza Wagner RN - 10/12/2023 6:27 AM EDT Patient Summary Reason for admission: Worsening epigastric pain radiating to back w/ nausea and inability to tolerate PO intake Relevant PMH: HTN, HLD, PE on Xarelto, Haque's esophagus, GERD, SCC, pericardial effusion Significant 24 hour events: 10/10 PM: Pt A&OX4. Pt is on room air saturating >90%. Pt. Is sinus aregnis on Tele. VS stable.IVF infusing per APR. Critical K of 3 this morning, MD notified. IV replacement ordered and infusing per APR. Action List Potassium replacement Monitor epigastric discomfort Telemetry IVF EEG today? documented in this encounter H&P Notes * Benita Mclean MD - 10/13/2023 6:04 AM EDT Gastroenterology and Hepatology Pre-Procedure History and Physical Exam Procedure: EGD: Indication: belching, weight loss, bloating Patient Active Problem List Diagnosis Code Pulmonary embolism, unprovoked I26.99 Pericardial effusion I31.39 Hypertension I10 GERD (gastroesophageal reflux disease) K21.9 Hyperlipidemia E78.5 Squamous cell carcinoma [id number] History of SCC (squamous cell carcinoma) of skin Z85.828 Solar lentigo L81.4 Epigastric pain R10.13 Gastroesophageal reflux disease without esophagitis K21.9 PMR (polymyalgia rheumatica) M35.3 Hypertensive urgency I16.0 EXAM: HEENT: Airway examined, oropharynx clear Mallampati Score: II (soft palate, uvula, fauces visible) LUNGS: Clear to auscultation HEART: Regular rate and rhythm, normal S1, S2 ABDOMEN: Normal bowel sounds, soft, non tender, non distended A/P: Proceed with the planned endoscopic procedure. ASA 3 - Patient with moderate systemic disease with functional limitations Sedation Plan: anesthesia Risks and benefits of the procedure explained to the patient. Consent form signed and included in the patient's chart. Benita Griffinannette PGY-6, Gastroenterology * More Orozco MD - 10/11/2023 11:07 PM EDT Inpatient Hospital Medicine - Admission Note Problem List: Active Hospital Problems Diagnosis Hypertensive urgency Resolved Hospital Problems No resolved problems to display. Active Non-Hospital Problems Diagnosis PMR (polymyalgia rheumatica) Gastroesophageal reflux disease without esophagitis Epigastric pain History of SCC (squamous cell carcinoma) of skin Solar lentigo Squamous cell carcinoma Pulmonary embolism, unprovoked Pericardial effusion Hypertension GERD (gastroesophageal reflux disease) Hyperlipidemia History of Present Illness: 87 y.o. female with history of HTN, HLD PE on Xarelto, Haque's esophagus, who presents to the ED,reporting a few day hx of worsening epigastric pain with radiation to her back associated with nausea, and inability to tolerate p.o. intake. Patient reports an intermittent history of chest discomfort in the epigastric area, radiating to the back, accompanied by nausea, poor oral intake, SOB, and hypertension. She also mentions occasionaldifficulty swallowing solid food. She denies vomiting, fevers, chills, night sweats, weight loss, blood in stool, or black stools. No history of heart disease. She notes that she was recently startedon Protonix by her PCP, which has not provided much relief. She denies smoking and drinks alcohol occasionally. In the ED, patient was found to be hypertensive to 214/91. Lab tests remarkable for hypokalemia 3.1, elevated HS troponin T 17>>16>>15. EKG showed no acute ischemic changes. GI cocktail, LR 500 cc. Imaging: CT Angiogram Chest Abdomen Pelvis w Contrast IMPRESSION 1. No aortic dissection or acute aortic pathology. 2. Scattered mild to moderate atheromatous plaque in the aorta and some branch vessels. 3. Small pericardial effusion. 4. No acute CT findings in the abdomen or pelvis. 5. Colonic diverticulosis. Review of Systems: Negative except as noted above Past Medical and Surgical History: Past Medical History: Diagnosis Date GERD (gastroesophageal reflux disease) Hyperlipidemia Hypertension Pericardial effusion 06/21/2010 Pulmonary embolism, unprovoked 06/21/2010 Past Surgical History: Procedure Laterality Date APPENDECTOMY Prior To Admission Medications: (Not in a hospital admission) Allergies: Allergies Allergen Reactions Codeine Phosphate Nausea And Vomiting Family History: No family history on file. Social History and Habits: Social History Socioeconomic History Marital status: Spouse name: Not on file Number of children: Not on file Years of education: Not on file Highest education level: Not on file Occupational History Not on file Tobacco Use Smoking status: Former Current packs/day: 0.50 Average packs/day: 0.5 packs/day for 3.0 years (1.5 ttl pk-yrs) Types: Cigarettes Smokeless tobacco: Former Quit date: 06/22/1979 Vaping Use Vaping status: Never Used Substance and Sexual Activity Alcohol use: Yes Alcohol/week: 2.0 standard drinks of alcohol Types: 2 Glasses of wine per week Drug use: No Sexual activity: Not on file Other Topics Concern Not on file Social History Narrative Not on file Social Determinants of Health Financial Resource Strain: Not on file Food Insecurity: Not on file Transportation Needs: Not on file Physical Activity: Not on file Intimate Partner Violence: Not At Risk (10/11/2023) IPV Inpatient Questions Prevent Contact with Others: no Feels Threatened by Someone: no Feels Unsafe at Home: no Physical Signs of Abuse Present: no Housing Stability: Not on file Immunizations: Immunization History Administered Date(s) Administered Hepatitis A Adult (HavRix, Vaqta) 10/14/2014 Hepatitis A, Unspecified Formulation 02/03/2006 Hepatitis B Unspecified Formulation 05/08/2009 Inactivated Polio Vaccine (IPOL) 02/03/2006, 03/10/2006, 09/08/2006 Influenza (Fluzone HD) Trivalent High Dose 12/29/2018 Brannon Monovalent Covid-19 Vaccine 12/12/2020 Moderna Covid-19 Monovalent 12Yr+ (Electrical Equipment Tester 100mcg) 04/27/2021 Pneumococcal Polysaccharide (Pneumovax 23) 07/15/2012 TD Adult 02/03/2006 Tdap 07/15/2012 Typhoid Live, Oral 02/03/2006, 10/14/2014 Typhoid, VICP 04/15/2022 Zoster (Zostavax) LIVE 05/08/2009 Physical Exam: Last Set of Vitals and range of vitals over past 24 hours: Last value Range last 24 hrs Temperature Temp: 36.7 ??C (98.1 ??F) Temp: [36.7 ??C (98.1 ??F)] Heart Rate Heart Rate: 57 Heart Rate: [50-97] Blood Pressure BP: 162/66 BP: (122-214)/(41-91) Respiratory Rate Resp: 14 Resp: [14-27] SpO2 SpO2: 99 % SpO2: [94 %-99 %] Body mass index is 26.83 kg/m??. Physical Exam Constitutional: General: She is not in acute distress. Appearance: She is not ill-appearing. HENT: Head: Normocephalic and atraumatic. Mouth/Throat: Pharynx: Oropharynx is clear. Eyes: Extraocular Movements: Extraocular movements intact. Pupils: Pupils are equal, round, and reactive to light. Cardiovascular: Rate and Rhythm: Normal rate. Rhythm irregular. Pulmonary: Effort: No respiratory distress. Breath sounds: No wheezing. Abdominal: General: There is no distension. Tenderness: There is no abdominal tenderness. Musculoskeletal: Cervical back: No rigidity or tenderness. Right lower leg: No edema. Left lower leg: No edema. Skin: Coloration: Skin is not jaundiced or pale. Neurological: General: No focal deficit present. Cranial Nerves: No cranial nerve deficit. Sensory: No sensory deficit. Psychiatric: Mood and Affect: Mood normal. Laboratory (Last 24 Hours): Recent Results (from the past 24 hour(s)) Urinalysis with reflex Culture Specimen: Urine, Clean Catch Result Value Ref Range Glucose, Urine Dipstick Negative Negative Protein, Urine Dipstick Negative Negative Bilirubin, Urine Dipstick Negative Negative Urobilinogen, Urine Dipstick Normal Normal, 0.2 mg/dL, 1.0 mg/dL pH, Urine (dipstick) 7.0 5.0 - 8.0 Blood, Urine Dipstick Moderate (A) Negative Ketone, Urine Dipstick Negative Negative Nitrite, Urine Dipstick Negative Negative Leukocytes, Urine Dipstick Negative Negative Specific [place] Urine Automated 1.007 1.005 - 1.030 Appearance, Urine Dipstick Clear Clear Color, Urine Dipstick Yellow Yellow, Dark Yellow Urinalysis Microscopic Reflex to Culture Result Value Ref Range Bacteria, Urine None None /HPF RBC, Urine 5 (H) 0 - 4 /HPF WBC, Urine 0 0 - 5 /HPF Squamous Epithelial Cells, Urine 1 <5 /HPF Hyaline Casts, Urine 0 0 - 2 /LPF Comment CBC (with Diff) Result Value Ref Range White Blood Cell 6.04 4.00 - 9.50 x10(3)/mcL Red Blood Cell 3.72 (L) 4.00 - 5.21 x10(6)/mcL Hemoglobin 12.0 11.7 - 15.5 g/dL Hematocrit 34.5 (L) 35.7 - 45.8 % Mean Cell Volume 92.7 82.6 - 94.4 fL Mean Cell Hemoglobin 32.3 (H) 27.1 - 32.0 pg Mean Cell Hemoglobin Concentration 34.8 31.7 - 35.0 g/dL Platelet 246 145 - 357 x10(3)/mcL Mean Platelet Volume 10.3 7.6 - 12.9 fL RDW Standard Deviation 43.2 37.0 - 46.0 fL RDW coefficient of variation 12.6 11.5 - 14.1 % NRBC% auto 0.0 % NRBC Absolute 0.00 0.00 - 0.00 x10(3)/mcL Neutrophil % 67.7 % Neutrophil Absolute 4.09 1.70 - 6.10 x10(3)/mcL Lymph % 25.5 % Lymph Absolute 1.54 0.90 - 3.20 x10(3)/mcL Monocyte % 5.6 % Monocyte Absolute 0.34 0.30 - 0.90 x10(3)/mcL Eos % 0.5 % Eos Absolute 0.03 0.00 - 0.40 x10(3)/mcL Basophil % 0.5 % Baso Absolute 0.03 0.00 - 0.10 x10(3)/mcL Immature Gran % 0.2 % Immature Gran Absolute 0.01 0.00 - 0.04 x10(3)/mcL Basic Metabolic Panel Result Value Ref Range Glucose 105 65 - 199 mg/dL Blood Urea Nitrogen 14 8 - 18 mg/dL Creatinine 0.91 0.70 - 1.20 mg/dL Sodium 144 135 - 145 mMol/L Potassium 3.1 (L) 3.5 - 5.0 mMol/L Chloride 107 98 - 107 mMol/L Carbon Dioxide 23 22 - 31 mMol/L Anion Gap 14 5 - 15 mMol/L Calcium 9.9 8.5 - 10.5 mg/dL Est Glomerular Filtration Rate - Female 61 mL/min/1.73 m?? Hepatic Function Panel Result Value Ref Range Albumin 4.2 3.2 - 5.2 g/dL Aspartate Aminotransferase 16 <=30 unit/L Alanine Aminotransferase 16 0 - 30 unit/L Alkaline Phosphatase 51 35 - 105 unit/L Bilirubin, Total 1.1 <=1.3 mg/dL Bilirubin, Direct 0.2 0.0 - 0.3 mg/dL Protein, Total 7.1 6.1 - 8.0 g/dL Lipase Result Value Ref Range Lipase 35 0 - 60 unit/L Troponin-T, High Sensitivity Result Value Ref Range Troponin-T, High Sensitivity Initial 17 (H) <=14 ng/L Troponin-T, High Sensitivity 1 Hour Result Value Ref Range Troponin-T, High Sensitivity 16 (H) <=14 ng/L Troponin-T, HS 1 hr delta 1 ng/L Troponin-T, Joseph Sensitivity 3 Hour Result Value Ref Range Troponin-T, High Sensitivity 15 (H) <=14 ng/L Troponin-T, HS 3 hr delta 2 ng/L Assessment and plan: 87 y.o. female with history of HTN, HLD PE on Xarelto, Haque's esophagus, who presents to the ED,reporting a few day hx of worsening epigastric pain with radiation to her back associated with nausea, and inability to tolerate p.o. intake, found to have hypertensive emergency, admitted to [facility] [place] management. #NSTEMI likely type II i/s/o hypertensive emergency #Small pericardial effusion CT Angiogram Chest Abdomen Pelvis w Contrast ruled out aortic dissection Telemetry monitoring Continue home HCTZ and Losartan Consider adding Carvedilol for BP control TTE to r/o rWMA #Nausea #PO intolerance #Dysphagia #Hx of Haque's esophagus Add on lipase, TSH, A1C Continue IV: NS+KCL @100 cc/h PPI IV Zofran Q8H IV PRN for nausea GI consult if the patient does not respond to conservative management. #Hypokalemia IVF as above Monitor and replete as needed #Hx of PE Continue home Xarelto DVT PPx: Xarelto Code status: FULL CODE A copy of this document will be sent to the patient's Primary Care Physician and/or Referring Physician. More Orozco MD 10/11/2023 documented in this encounter ED Notes * Benita Sher RN - 10/11/2023 8:31 PM EDT Pt given food for PO trial. Pt did not want to try to eat at this time. * Karla Faria MD - 10/11/2023 2:29 PM EDT Brief Attending Note I cared for the patient with the resident physician. Please see Dr. Munoz's note, associated with the encounter, for more details. HPI: Nelsy Ruffin is a 87 y.o. who presents to the ED 3 days of upper abd pain radiating to her back. Was seen at an OSH 3 months ago for the same symptoms. + belching. No n/v/d. No chest pain. No SOB is with her and provides additional history. PMH HTN ED Course: VSS afebrile. Hypertensive Awake, alert, in NAD. Able to give her own history + tenderness to palpation LLQ. Labs - initial trop 17. Repeat pending Other labs reassuring. Recent Results (from the past 12 hour(s)) Urinalysis with reflex Culture Specimen: Urine, Clean Catch Result Value Glucose, Urine Dipstick Negative Protein, Urine Dipstick Negative Bilirubin, Urine Dipstick Negative Urobilinogen, Urine Dipstick Normal pH, Urine (dipstick) 7.0 Blood, Urine Dipstick Moderate (A) Ketone, Urine Dipstick Negative Nitrite, Urine Dipstick Negative Leukocytes, Urine Dipstick Negative Specific [place] Urine Automated 1.007 Appearance, Urine Dipstick Clear Color, Urine Dipstick Yellow Urinalysis Microscopic Reflex to Culture Result Value Bacteria, Urine None RBC, Urine 5 (H) WBC, Urine 0 Squamous Epithelial Cells, Urine 1 Hyaline Casts, Urine 0 Comment CBC (with Diff) Result Value White Blood Cell 6.04 Red Blood Cell 3.72 (L) Hemoglobin 12.0 Hematocrit 34.5 (L) Mean Cell Volume 92.7 Mean Cell Hemoglobin 32.3 (H) Mean Cell Hemoglobin Concentration 34.8 Platelet 246 Mean Platelet Volume 10.3 RDW Standard Deviation 43.2 RDW coefficient of variation 12.6 NRBC% auto 0.0 NRBC Absolute 0.00 Neutrophil % 67.7 Neutrophil Absolute 4.09 Lymph % 25.5 Lymph Absolute 1.54 Monocyte % 5.6 Monocyte Absolute 0.34 Eos % 0.5 Eos Absolute 0.03 Basophil % 0.5 Baso Absolute 0.03 Immature Gran % 0.2 Immature Gran Absolute 0.01 Basic Metabolic Panel Result Value Glucose 105 Blood Urea Nitrogen 14 Creatinine 0.91 Sodium 144 Potassium 3.1 (L) Chloride 107 Carbon Dioxide 23 Anion Gap 14 Calcium 9.9 Est Glomerular Filtration Rate - Female 61 Hepatic Function Panel Result Value Albumin 4.2 Aspartate Aminotransferase 16 Alanine Aminotransferase 16 Alkaline Phosphatase 51 Bilirubin, Total 1.1 Bilirubin, Direct 0.2 Protein, Total 7.1 Lipase Result Value Lipase 35 Troponin-T, High Sensitivity Result Value Troponin-T, High Sensitivity Initial 17 (H) CT chest/abd/pelvis - small pericardial effusion. No other acute findings. Results for orders placed or performed during the hospital encounter of 10/11/23 CT Angiogram Chest Abdomen Pelvis w Contrast (Exam End: 10/11/2023 3:44 PM) Result Value WORKSTATION ID [id number] Impression 1. No aortic dissection or acute aortic pathology. 2. Scattered mild to moderate atheromatous plaque in the aorta and some branch vessels. 3. Small pericardial effusion. 4. No acute CT findings in the abdomen or pelvis. 5. Colonic diverticulosis. 6. Other incidental findings, as described above. 7. Thank you for letting us participate in the care of this patient. If you are a health care provider and have any questions regarding this report, please contact the number below. For patients who have questions please contact the health physician primary care sports medicine that requested your imaging first. Assessment/plan: Epigastric pain Will attempt PO trial If pain persists and unable to tolerate PO will request admission Care to oncoming team at shift change. Karla Faria MD 10/12/23 0722 * Carmita Munoz, DO - 10/11/2023 2:08 PM EDT ED Resident Note HPI: Nelsy Ruffin is a 87 y.o. female with history of hypertension on losartan and as needed nifedipine and afib on Xarelto who presents to the Emergency Department with 3 days of worsening epigastric pain with radiation to her back associated with nausea without vomiting. She has had similar symptoms for several months and has been seen [id number] for [facility]. She was told that she had trapped gas in her abdomen. She was started on a PPI just a few days ago, but this has not helped her symptoms. She had an EKG done at her PCP office, which she was told was normal. She has associated dizziness, but denies extremity weakness, fevers, chills, and changes in her bowel movem ents. She does have some abdominal pain. She has been moving her bowels regularly and she has not noticed any blood in her stool. Surgical history significant for an appendectomy years ago. History obtained from patient and her . ROS as per HPI Vitals: ED Triage Vitals BP: (!) 202/82 [10/11/23 1335] Heart Rate: 71 [10/11/23 1333] Resp: 16 [10/11/23 1333] Temp: 36.7 ??C (98.1 ??F) [10/11/23 1333] Temp src: Temporal [10/11/23 1333] SpO2: 98 % [10/11/23 1333] O2 Device: RA [10/11/23 1333] O2 Flow Rate (L/min): n/a Physical Exam Constitutional: General: She is not in acute distress. Comments: Appears uncomfortable. Patient is hypertensive. HENT: Head: Atraumatic. Eyes: Extraocular Movements: Extraocular movements intact. Pupils: Pupils are equal, round, and reactive to light. Cardiovascular: Rate and Rhythm: Normal rate and regular rhythm. Pulses: Normal pulses. Pulmonary: Effort: Pulmonary effort is normal. No respiratory distress. Breath sounds: Normal breath sounds. Abdominal: General: There is no distension. Palpations: Abdomen is soft. Tenderness: There is abdominal tenderness (TTP in epigastric region and LLQ). Musculoskeletal: Right lower leg: No edema. Left lower leg: No edema. Skin: General: Skin is warm and dry. Neurological: Mental Status: She is alert. Cranial Nerves: No cranial nerve deficit. Sensory: No sensory deficit. Motor: No weakness. Comments: Answers questions appropriately and is able to move all 4 extremities without difficulty. ED Course: I have reviewed labs and imaging, images and available reports, and they are significant for: ED Course as of 10/12/23 0004 Sat Oct 11, 2023 1440 Patient seen and examined at bedside. Labs and imaging ordered. GI cocktail ordered. 1548 CBC without leukocytosis. Hemoglobin normal at 12.0. CBC otherwise unremarkable. 154 EKG shows sinus bradycardia at a rate of 53 bpm. Normal axis and normal intervals. QTc 401. Noobvious ST depressions or elevations. 162 CTA: 1. No aortic dissection or acute aortic pathology. 2. Scattered mild to moderate atheromatous plaque in the aorta and some branch vessels. 3. Small pericardial effusion. 4. No acute CT findings in the abdomen or pelvis. 5. Colonic diverticulosis. 6. Other incidental findings, as described above. 165 Second trop 16, delta 1. Third troponin at 1800. 1953 Third troponin 15. 2126 Patient has persistent pain in upper abdomen. Will call cardiology given elevated troponin andlocation of epigastric pain without other lab/imaging abnormalities. 2128 Cardiology will see patient. 2130 IVF bolus ordered 2131 Admission request placed for persistent pain. 2207 Admitted to . Cardiology consult pending. Assessment and Plan: 87 y.o. female with epigastric pain and radiation to her back associated with nausea and decreased p.o. intake. Initial concern for aortic etiology given distribution of pain. CTA chest, abdomen, andpelvis was obtained and negative for aortic dissection or acute aortic pathology. Also considered diverticulitis given she had tenderness to palpation in the left lower quadrant. CTA of the abdomen did show diverticulosis, but no evidence of diverticulitis. Patient symptoms were treated with a GI cocktail with only minimal improvement in symptoms. Considered ACS given epigastric pain. Troponin elevated at 17, 16, and 15. EKG was nonischemic. Cardiology was consulted given persistent pain and no other significant findings besides elevated troponin. Given patient had persistent pain after GI cocktail and was not able to tolerate p.o. intake patient was admitted to hospital medicine. Cardiology consultation pending at the time of admission. The visit findings, diagnosis, and care plan were discussed with the patient. Carmita Munoz DO Resident 10/12/23 0006 Associated attestation - Karla Faria MD - 10/12/2023 7:22 AM EDT ED ATTENDING ATTESTATION The patient was seen in conjunction with the resident physician. I have independently performed thekey portions of the history and physical exam. I have personally reviewed nursing notes, vital signs, and diagnostic studies including labs, imaging studies and EKGs. I have discussed the details of the case with the resident and agree with the assessment and plan as described in the resident's note, unless stated otherwise in my separate note. Did this case involve critical care? No documented in this encounter Miscellaneous Notes * Plan of Care - Erendira Barnhart RN - 10/13/2023 5:52 PM EDT . OUTCOME EVALUATION NOTE: OUTCOME SUMMARY: A+Ox4. Assessment as documented. Medicated per apr. NPO maintained for EGD. Resting in between care. PLAN MOVING FORWARD: D/C pending EGD INDIVIDUALIZED FALL PREVENTION INTERVENTIONS: Patient-specific fall risk factors per assessment: [current deficits]: N/A Assistance [level of assistance required for transfers and ambulation]: SB Supervision [direct monitoring required during toileting and ADLs]: SB Surveillance [continuous indirect monitoring]: saji castillo rounding, room near nurses station * Plan of Care - Erendira Barnhart RN - 10/13/2023 10:53 AM EDT .. OUTCOME EVALUATION NOTE: OUTCOME SUMMARY: A+Ox4. Assessment as documented. Medicated per mar. NPO for EGD today. Resting in between care. PLAN MOVING FORWARD: EGD today INDIVIDUALIZED FALL PREVENTION INTERVENTIONS: Patient-specific fall risk factors per assessment: [current deficits]: N/A Assistance [level of assistance required for transfers and ambulation]: SB Supervision [direct monitoring required during toileting and ADLs]: SB Surveillance [continuous indirect monitoring]: masimo, hourly rounding, room near nurses station * Care Management Discharge - Renae Cooper RN - 10/13/2023 9:08 AM EDT CARE MANAGEMENT FINAL DISCHARGE NOTE Chart reviewed, care reviewed with primary team and at interdisciplinary rounds. Patient is medically ready for discharge to home. Needs for Transition of Care: Plan for discharge is: Home w/o Services Outpatient Agency/Support Group Needs: None Agency Referrals & Follow-up Care: Transportation: family or friend will provide Wheelchair van/Ambulance? No Functional status prior to admission: Independent Home Environment: Others in the home: spouse. Current Living Arrangements: home/apartment/condo. Accessibility Concerns:patient lives with her in a 2 story home with the bedrooms on the second floor.. Current Functional Ability: Independent DME used at home: none DME Needed at Discharge: Patient is insured through: Primary Insurance: MEDICARE Payor: MEDICARE / Plan: MEDICARE PART A & B / Product Type: *No Product type* / Secondary Insurance: N/A Prescription Coverage: This plan was formulated with input from patient and team. All are in agreement with plan. Renae Cooper [facility] [phone] * Initial Assessments - Renae Cooper RN - 10/13/2023 9:02 AM EDT Office of Care Management Initial Assessment Renae Cooper RN reviewed record and discussed patient with Care Team. Source of Information: Team, bedside nurse, medical record, and Patient Introduced self/reviewed role; services accepted. Admitted From: Home Reason for Hospitalization: my blood pressure is increasing Past medical History: Past Medical History: Diagnosis Date GERD (gastroesophageal reflux disease) Hyperlipidemia Hypertension Pericardial effusion 06/21/2010 Pulmonary embolism, unprovoked 06/21/2010 Hospitalizations Within the Past 30 Days: no previous admission in last 30 days Current Decision-Making Capacity: Self If AD's have not been completed the following surrogate would be surrogate decision maker per [place] surrogate decision making law. (Only good for 180 days) spouse Geovanni Any patient receiving care in [place] must abide by [place] law. The hierarchy for surrogate decision making is: (a) Patient???s spouse or civil union partner unless there is a divorce proceeding, separation agreement, or restraining order limiting that person???s relationship with the patient. (b) Any adult son or daughter of the patient. (c) Either parent of the patient. (d) Any adult brother or sister of the patient. (e) Any adult grandchild of the patient. (f) Any grandparent of the patient. (g) Any adult aunt, uncle, niece, or nephew of the patient. (h) A close friend of the patient. (i) The agent with financial power of transactional attorney or a conservator appointed in accordance with RSA 464-A. (j) The guardian of the patient???s estate. Advance Care Planning: Attempt Cardiopulmonary Resuscitation - Inpatient <no information> -Advanced Directive: No, need to discuss Current Coping/Education/Information Needs: Educated the patient on the role of the CM and the DC planning process Current Functional Ability: Independent Functional Status Prior to Admission: Independent Prior ADLs & IADLs: Independent with all ADLs & IADLs Home Environment: Others in the home: spouse. Current Living Arrangements: home/apartment/condo. Accessibility Concerns:patient lives with her in a 2 story home with the bedrooms on the second floor.. In the last 12 months, was there a time when you were not able to pay the mortgage or rent on time?: No At any time in the past 12 months, were you homeless or living in a usp (including now)?: No In the past 12 months has the statusboom, gas, oil, or water [employer] threatened to shut off services in your home?: No Within the past 12 months, you worried that your food would run out before you got the money to buymore.: Never true Within the past 12 months, the food you bought just didn't last and you didn't have money to get more.: Never true Resource / Environmental Concerns: Resource/Environmental Concerns: none In the past 12 months, has lack of transportation kept you from medical appointments or from getting medications?: No In the past 12 months, has lack of transportation kept you from meetings, work, or from getting things needed for daily living?: No Current DME: none Home Address confirmed as: [address] [facility] [id number] Social & Family Supports: All names listed below confirmed with patient as current and correct Extended Emergency Contact Information Primary Emergency Contact: LalyGeovanni Hardin Address: [address] [place] [address] [facility] Mobile Relation: Spouse Secondary Emergency Contact: Helga Petit Mobile Relation: Child Current Care Provided by: self Provides Primary Care For: no one Caregiver if needed: spouse Quality of Family relationships: helpful, involved, supportive Community Resources being provided currently: none Behavioral Health History: denied Substance Use/Abuse confirmed: Social History Tobacco Use Smoking Status Former Current packs/day: 0.50 Average packs/day: 0.5 packs/day for 3.0 years (1.5 ttl pk-yrs) Types: Cigarettes Smokeless Tobacco Former In the past year have you used an illegal drug or used a prescription medication for non-medical reasons?: No 0 No problems reported 1-2 Low level 3-5 Moderate level 6-8 Substantial level 9- 10 Severe level In the past year have you had 4 or more drinks a day containing alcohol?: No 0 to 7 points: Low risk 8 to 15 points: Medium risk 16 to 19 points: High risk 20 to 40 points: Addiction likely Other Pertinent/Service Specific Information: NA Health/Prescription Coverage: Primary Insurance: MEDICARE Payor: MEDICARE / Plan: MEDICARE PART A & B / Product Type: *No Product type* / Secondary Insurance: N/A ; Prescription Coverage: Preferred Pharmacy: [address] [address] [facility] [address] - [facility], [place] - [address] [facility] [address] [place] [address] Status: Patient is a : No Primary Care Provider confirmed: Kumar Schultz MD [phone] Patient/Caregiver Goals of Treatment: return home Potential Needs for Transition of Care: none Agency Referrals: Not Applicable Transportation: no concerns Transportation Anticipated: family or friend will provide Concerns to be Addressed: no discharge needs identified Assessment: Patient is admitted to med service for hypertensive urgency Plan going forward: The patient alert and oriented and able to participate in discussion regarding DC plan. Patient with no apparent RNCM/SW needs at this time. No housing, transportation, insurance, resources concerns identified at this time. Supports in place to achieve a safe post-hospital transition. No identifiedbarriers to accessing necessary care and/or follow-up after discharge. Monitor pt progress Review recommendations from other providers Make referrals as needed Care Management team will continue to follow and assist with discharge planing and coordination of care as indicated. Renae Cooper [facility] [phone] * Consult Note - Xavi Monroe MD - 10/12/2023 7:25 AM EDT Images from the original note were not included. DIVISION OF GASTROENTEROLOGY & HEPATOLOGY INITIAL CONSULT REQUESTING PROVIDER: More Orozco MD NAME: Nelsy Ruffin : 1935 Reason for consult: epigastric discomfort HPI: Nelsy Ruffin is a 87 y.o. female with a PMH of HTN, HLD prior PE, afib on xarelto, esophagitis, PMR, ?Haque's esophagus, prior appendectomy presenting with epigastric pain, bloating and belching. She reports years of epigastric discomfort, bloating which improves with belching. She has acute flares of worsening symptoms that last a couple weeks then usually improve after being on a PPI. Her PCP started her on a pantoprazole 20mg and simethicone 8/21, but yesterday, she had worsening epigastric pain and did not feel she could get enough nutrition in, so she presented to [facility]. In the ED, she was afebrile and hypertensive which peaked at 214/91. Troponin slightly elevated to 16 --> 15, creatinine 0.91, normal CBC, LFTs normal, lipase normal, TSH normal. CTA CAP showed a small pericardial effusion without acute findings. Cardiology saw her in the ED and recommended a TTE to further assess her pericardial effusion. EKG was without signs of ischemia. Per prior notes in care everywhere going back to 2021, she has chronic belching, GERD, acid sensation that was well controlled with prilosec 20mg qd. When she stops her prilosec, symptoms recur. She had a normal EGD 7-8 years ago. Esophogram 01/2019 showed a small hiatal hernia. Upper GI series 05/2021 was normal. She last saw GI at [place] in 2021. Their plan was to put her on famotidine bid and change to a PPI if symptoms were not controlled. They also did a CT 05/2021 which showed a small pericardial effusion, sigmoid diverticulitis, and no acute findings. Today, she is feeling better than yesterday. She says when she burps enough and releases the gas, her discomfort subsides. She doesn't feel hungry but is interested in drinking. She thinks she has lost 8 lbs in the last couple of weeks. Denies fevers, chills, vomiting, blood in stool. ROS: 10-system ROS negative other than that noted above PAST MEDICAL & SURGICAL HX: Past Medical History: Diagnosis Date GERD (gastroesophageal reflux disease) Hyperlipidemia Hypertension Pericardial effusion 06/21/2010 Pulmonary embolism, unprovoked 06/21/2010 Past Surgical History: Procedure Laterality Date APPENDECTOMY SOCIAL HX: Social History Socioeconomic History Marital status: Spouse name: Not on file Number of children: Not on file Years of education: Not on file Highest education level: Not on file Occupational History Not on file Tobacco Use Smoking status: Former Current packs/day: 0.50 Average packs/day: 0.5 packs/day for 3.0 years (1.5 ttl pk-yrs) Types: Cigarettes Smokeless tobacco: Former Quit date: 06/22/1979 Vaping Use Vaping status: Never Used Substance and Sexual Activity Alcohol use: Yes Alcohol/week: 2.0 standard drinks of alcohol Types: 2 Glasses of wine per week Drug use: No Sexual activity: Not on file Other Topics Concern Not on file Social History Narrative Not on file Social Determinants of Health Financial Resource Strain: Not on file Food Insecurity: Not on file Transportation Needs: Not on file Physical Activity: Not on file Intimate Partner Violence: Not At Risk (10/11/2023) DH IPV Inpatient Questions Prevent Contact with Others: no Feels Threatened by Someone: no Feels Unsafe at Home: no Physical Signs of Abuse Present: no Housing Stability: Not on file FAMILY HX: No family history on file. MEDICATIONS Medication list personally reviewed Home Meds: Medications Prior to Admission Medication Sig Dispense Refill Last Dose hydrocortisone 2.5 % Cream Apply to affected area of the nose twice daily as needed. 30 g 0 prochlorperazine (Compazine) 5 mg Tablet Take 1 tablet by mouth every 6 hours as needed for Nausea.(Patient not taking: Reported on 06/10/2022) 15 tablet 0 calcium carbonate/vitamin D3 (VITAMIN D-3 ORAL) Take by mouth. estradioL (ESTRACE) 0.01 % (0.1 mg/gram) Cream estradiol 0.01% (0.1 mg/gram) vaginal cream APPLY ONE GRAM VAGINALLY TWICE A WEEK hydroCHLOROthiazide (Hydrodiuril) 12.5 mg Tablet hydrochlorothiazide 12.5 mg tablet TAKE ONE TABLET BY MOUTH EVERY MORNING latanoprost (Xalatan) 0.005 % Drops latanoprost 0.005 % eye drops INSTILL ONE DROP INTO BOTH EYE AT BEDTIME - SHAKE BEFORE USE losartan (COZAAR) 100 mg Tablet losartan 100 mg tablet TAKE ONE TABLET BY MOUTH EVERY MORNING IF SYSTOLIC BLOOD PRESSURE > 120 NIFEdipine (Procardia) 10 mg Capsule nifedipine 10 mg capsule GARCIA CAPSULE AND SWALLOW CONTENTS ONCE IF NEEDED FOR FOR BLOOD PRESSURE OVER 170 potassium chloride (K-Tab) 20 mEq Tablet Sustained Release as needed. valACYclovir (Valtrex) 1 gram Tablet as needed. rivaroxaban (Xarelto) 10 mg Tablet Take 10 mg by mouth daily. Current Meds: Scheduled: rivaroxaban 10 mg Oral Daily potassium chloride 10 mEq Intravenous Q2H heascgwgw-xniuzhnrc-vr-mag-sim 5 mL Oral BID losartan 100 mg Oral Daily sodium chloride 0.9 % (flush) 5 mL Intravenous BID pantoprazole 40 mg Intravenous BID hydroCHLOROthiazide 12.5 mg Oral Daily Drips: sodium chloride 0.9% with potassium chloride 20 mEq 100 mL/hr (10/11/23 2343) PRN: prochlorperazine OR prochlorperazine, ondansetron, sodium chloride 0.9 % (flush), lidocaine, melatonin Allergies: Allergies Allergen Reactions Codeine Phosphate Nausea And Vomiting OBJECTIVE Vitals: T Temp: [36.2 ??C (97.2 ??F)-36.7 ??C (98.1 ??F)] HR Heart Rate: [50-97] BP BP: (122-214)/(41-98) RR Resp: [10-27] SpO2 SpO2: [94 %-100 %] 10/10 0701 - 10/11 0700 In: 500 [I.V.:500] Out: - Wt Last 64.4 kg (142 lb) Admit 64.41 kg Physical Exam: CONST: Awake, alert, no acute distress HEENT: sclerae anicteric, moist mucous membranes RESP: no increased work of breathing GI: abdomen soft, slightly tender in the epigastrium, non-distended MSK: legs warm SKIN: No jaundice, rash, or bruising NEURO: Grossly intact, moves all extremities PSYCH: Pleasant, appropriate affect Labs: Labs personally reviewed in eDH CBC: Recent Labs 10/12/23 0509 10/11/23 1501 WBC 5.10 6.04 HGB 11.3* 12.0 PLATELET 229 246 MCV 94.6* 92.7 RDWCV 12.7 12.6 COAG: No results for input(s): PTT, INR, PT in the last 168 hours. CHEM: Recent Labs 10/12/23 0509 10/11/23 1501 CREATININE 0.91 0.91 BUN 12 14 NA 143 144 K 3.0* 3.1* CL 109* 107 CO2 23 23 MAGNESIUM 0.78 -- CALCIUM 9.1 9.9 HEPATIC: Recent Labs 10/12/23 0509 10/11/23 1817 10/11/23 1501 BILITOT 1.4* -- 1.1 BILIDIR 0.2 -- 0.2 ALKPHOS 46 -- 51 AST 15 -- 16 ALT 14 -- 16 ALBUMIN 3.9 -- 4.2 LIPASE -- 29 35 INFLAMM: No results for input(s): CRP in the last 168 hours. IMAGING: Reports and images personally reviewed in eDH. Images independently interpreted. CT Angiogram Chest Abdomen Pelvis w Contrast Final Result 1. No aortic dissection or acute aortic pathology. 2. Scattered mild to moderate atheromatous plaque in the aorta and some branch vessels. 3. Small pericardial effusion. 4. No acute CT findings in the abdomen or pelvis. 5. Colonic diverticulosis. 6. Other incidental findings, as described above. 7. Thank you for letting us participate in the care of this patient. If you are a health care provider and have any questions regarding this report, please contact the number below. For patients who have questions please contact the health physician primary care sports medicine that requested your imaging first. RECORDS: Obtained and personally reviewed CT A/P w contrast 06/06/21 Upper GI Series 06/15/21 ASSESSMENT & PLAN: Nelsy Ruffin is a 87 y.o. female with a PMH of HTN, HLD prior PE, afib on xarelto, esophagitis, PMR, ?Haque's esophagus, prior appendectomy presenting with epigastric pain, bloating and belching. Nelsy has had many years of epigastric discomfort, bloating, and belching. Unfortunately with this latest episode, she has lost 8 lbs and does not feel like she is getting enough nutrition in. Especially with the question of Haque's esophagus, her weight loss, po intolerance, age, and the fact that her last EGD was ~8 years ago, we recommend repeating an EGD tomorrow. She has not been on steroids recently for her PMR which would raise her chance of gastritis. She does have a small known hiatal hernia, which would be unlikely at its size to lead to these symptoms. Would recommend continuing her PPI, treating her symptoms with BMX, simethicone, and we will do an EGD tomorrow looking for any signs of inflammation, ulcers, structural abnormalities, and malignancy. RECOMMENDATIONS: - NPO MN for EGD tomorrow - okay to continue PPI Patient seen with Dr. Archie Monroe MD Fellow in Gastroenterology & Hepatology Associated attestation - Hailee Almanza MD - 10/12/2023 2:41 PM EDT ATTENDING ATTESTATION: I have seen and evaluated the patient with the GI fellow, Dr. Monroe. I have reviewed the fellow's history during the encounter and I agree with the details as written above. My physical examination confirms the above findings. The assessment and plan were formulated in discussion with me at the time of the encounter and I agree with them as documented. Discussed indications, risks and benefitsof EGD and patient agrees to proceed. Hailee Almanza MD Gastroenterology attending Pager [phone] * ED Triage - Tex Purcell RN - 10/11/2023 1:33 PM EDT Reports relief with belching, farting. HPI (Adult) Stated Reason for Visit: Gastritis x 2 weeks. Sometimes I cannot breath. I feel dizzy. My blood pressure goes over 200. Sometimes I feel like I'm going to pass out. Saw PCP Friday who prescribed PPI. Medication hasn't helped. Multiple complaints. Skin WPD. Ambulates to triage with slow, steady gait. Endorses epigastric pain. Denies chest pain. History Obtained From: patient, family Precipitating Event(s): none Onset of Symptoms: constant Duration (Weeks): 2 documented in this encounter Plan of Treatment Upcoming Encounters Date Type Department Care Team (Late st Contact Info) Description 10/27/2023 10:00 AM EDT TH Visit (TeleHealth) [place] [address] Olga Melgar APRN [facility] [place] [address] Scheduled Referrals Name Type Priority Associated Diagnoses Orde r Schedule Referral to Nutrition Services Outpatient Referral Routine Upper abdominal pain Ordered: 10/13/2023 documented as of this encounter Procedures Procedure Name Priority Date/Time Associated Diagnosis Comments GIARDIA/CRYPTOSPORID IUM ANTIGENS ([facility]/CGP/APD/NLH) Routine 10/13/2023 3:50 PM EDT ECHO COMPLETE Routine 10/13/2023 12:52 PM EDT Hypertensive urgency SURGICAL PATHOLOGY Routine 10/13/2023 10 :26 AM EDT Upper Gi Endoscopy, Biopsy (66499) 10/13/2023 10:13 AM EDT Wt loss UPPER GI ENDOSCOPY Routine 10/13/2023 9: 44 AM EDT CBC (WITH DIFF) Routine 10/13/2023 4:07 AM EDT MAGNESIUM Routine 10/13/2023 4:07 AM EDT BASIC METABOLIC PANEL Routine 10/13/2023 4:07 AM EDT CBC (WITH DIFF) Routine 10/12/2023 5:09 AM EDT PHOSPHORUS Routine 10/12/2023 5:09 AM EDT MAGNESIUM Routine 10/12/2023 5:09 AM EDT HEPATIC FUNCTION PANEL Routine 10/12/2023 5:09 AM EDT BASIC METABOLIC PANEL Routine 10/12/2023 5:09 AM EDT TROPONIN-T, HIGH SENSITIVITY 3 HOUR PERFORMABLE STAT 10/11/2023 6:17 PM EDT TSH Add-On 10/11/2023 6:17 PM EDT LIPASE STAT Add-On 10/11/2023 6:17 PM EDT TROPONIN-T, HIGH SENSITIVITY 1 HOUR PERFORMABLE STAT 10/11/2023 3:[address] ANGIOGRAM CHEST ABDOMEN PELVIS W CONTRAST STAT 10/11/2023 3:44 PM EDT TROPONIN-T, HIGH SENSITIVITY INITIAL PERFORMABLE STAT 10/11/2023 3:01 PM EDT TROPONIN - SERIES STAT 10/11/2023 3:0 1 PM EDT CBC (WITH DIFF) STAT 10/11/2023 3:01 PM EDT LIPASE STAT 10/11/2023 3:01 PM EDT HEMOGLOBIN A1C STAT Add-On 10/11/2023 3:01 PM EDT HEPATIC FUNCTION PANEL STAT 10/11/2023 3:01 PM EDT BASIC METABOLIC PANEL STAT 10/11/2023 3:01 PM EDT URINALYSIS BEAKER MICROSCPIC REFLEX EXAM ([facility]) STAT 10/11/2023 2:54 PM EDT URINALYSIS MICROSCOPIC WITH REFLEX TO CULTURE STAT 10/11/2023 2:54 PM EDT URINALYSIS WITH REFLEX CULTURE STAT 10/11/2023 2:54 PM EDT EKG 12-LEAD STAT 10/11/2023 2:49 PM EDT documented in this encounter Results * Giardia/Cryptosporidium Antigens ([facility]/CGP/APD/NLH) (10/13/2023 3:50 PM EDT) Giardia Antigen Negative Negative 12:31 PM EDT [facility] Cryptosporidium Antigen Negative Negative 10/14/2023 12:31 PM EDT [facility] Stool STOOL SPECIMEN / Unknown Non Blood Collection / Unknown 10/13/2023 3:50 PM EDT 10/13/2023 4:41 PM EDT Narrative [facility] - 10/14/2023 12:31 PM EDT Examination for other intestinal parasites requires foreign travel history. Examination for other intestinal parasites requires foreign travel history. Valente Bhatt MD MICROBIOLOGY - GEN ERAL ORDERABLES [facility] [place] [address] * ECHO COMPLETE (10/13/2023 12:52 PM EDT) EF 65 HEARTLAB SYSTEM Anatomical Region Laterality Modality Cardiac Other 10/13/2023 12:1 4 PM EDT Narrative 10/13/2023 1:18 PM EDT [address] [place] [address] ? Echocardiogram Report Name: JOSE ALEJANDRO RUFFINANINE F ?Study Date: 10/13/2023 12:14 PMBP: 160/72 mmHg ? Patient Location: [id number] A : 1935 ? Height: 155 cm ? Account: [id number] Age: 87 yrs ? Weight: 64 kg Gender: Female ?BSA: 1.6 m2 Ordering Physician: MORE OROZCO Performed By: LE Palomares Reason For Study: Hypertensive urgency Exam Location: [facility]. Interpretation Summary 1. 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 Procedure Complete-25822. Satisfactory quality. There is sinus bradycardia. Left [...] Note Eri Patino MD - 10/13/2023 [address] [place] [address] Echocardiogram Report Name: NELSY RUFFIN Study Date: 2:14 PMBP: 160/72 mmHg Patient Location: [id number] A : 1935 Height: 155 cm Account: [id number] Age: 87 yrs Weight: 64 kg Gender: Female BSA: 1.6 m2 Ordering Physician: MORE OROZCO Performed By: LE Palomares Reason For Study: Hypertensive urgency Exam Location: [facility]. Interpretation Summary 1. 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 Procedure Complete-72298. Satisfactory quality. There is sinus bradycardia. Left [...] Case Report Surgical Pathology Report ? Case: [id number] ? Authorizing Provider: ??Geovanni Bell MD ?Collected: ? 10/13/2023 1026 ? Ordering Location: ? Gastroenterology at [facility] ?? Received: ?10/13/2023 1251 ? Pathologist: ? Judie Ovalle MD ? Specimens: ?? A) - Esophagus, esophagus at 37cm ? B) - Stomach ? C) - Small Bowel, Duodenum ? 10/17/2023 12:27 PM [facility] Final Diagnosis A. Esophagus, esophagus at 37cm Biopsy: Cardia- and fundic-type mucosa with focal intestinal metaplasia, negative for dysplasia (see Discussion). B. Stomach, Biopsy: Gastric fundic and antral gland mucosa with mild chronic nonspecific gastritis. C. Small Bowel, Duodenum, Biopsy: Duodenal mucosa within normal limits, including preserved villous architecture. 10/17/2023 12:27 PM 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 10/17/2023 12:27 PM [facility] Additional Studies Task ID IHC/Special Stains Result Comments B1-2 H pylori Negative 10/17/2023 12:27 PM [facility] Disclaimer(s) Formalin-fixed, paraffin-embedded tissue sections are [...] and other diagnostic tests. 10/17/2023 12:27 PM [facility] Clinical Information A. Esophagus, esophagus at 37cm Rule out Haque's B. Stomach, Rule out Helicobacter pylori C. Small Bowel, Duodenum, Rule out celiac 10/17/2023 12:27 PM EDT [facility] Gross Description A. Esophagus, esophagus at [...] cassette labeled C1. 10/17/2023 12:27 PM EDT [facility] Result Note Routine 10/17/2023 12:27 PM EDT [facility] Tissue ESOPHAGEAL STRUCTURE / Unknown 10/13/2023 10:26 AM EDT 10/13/2023 12:51 PM EDT Comment:Pre-op diagnosis: Wt loss Tissue specimen (specimen) STOMACH STRUCTURE / Unknown 10/13/2023 10:28 AM EDT 10/13/2023 12:51 PM EDT Comment:Pre-op diagnosis: Wt loss Tissue specimen (specimen) DUODENAL STRUCTURE / Unknown 10/13/2023 10:28 AM EDT 10/13/2023 12:51 PM EDT Comment:Pre-op diagnosis: Wt loss Geovanni Bell MD PATHOLOGY/CYTOLOGY O RDERABLES [facility] [place] [address] * UPPER GI ENDOSCOPY (10/13/2023 9:44 AM EDT) UPPER GI ENDOSCOPY [facility] Endoscopy ___ Procedure Date: 10/13/2023 9:44 AM ? Patient Name: Nelsy Ruffin ? Date of : 1935 ? Age: 87 ? Order #: [id number] ? Instrument Name: [id number] ? ___ Procedure: ? Upper GI endoscopy Indications: ? Chronic dyspepsia and GERD; recent ? 8lb weight loss. Providers: ? Geovanni Bell, Benita Mclean, ? Nickolas Nicolas Ref[facility]: [facility] Medicines: ? Monitored Anesthesia Care Complications: ? [...] classified as Haque's stage C0-M1 ? per Section criteria. Biopsied. ? - Normal stomach. Biopsied. [...] insertion to removal of the endoscope. ? Geovanni Bell Geovanni Bell, 10/13/2023 10:56:41 AM Number of Addenda: 0 Note Initiated On: 10/13/2023 9:44 AM [employer] 10/13/2023 9:44 AM EDT Valente Bhatt MD GENERAL SURGICAL O RDERABLES Performing Organization Address [facility] Co de Phone Number [employer] * Magnesium (10/13/2023 4:07 AM EDT) Magnesium 0.76 0.69 - 1.07 mMol/L 10/13/2023 4:55 AM EDT [facility] Blood VENOUS BLOOD SPECIMEN / Unknown IP Care Team Draw / Unknown 10/13/2023 4:07 AM EDT 10/13/2023 4:23 AM EDT More Orozco MD CHEMISTRY ORDERABLES Performing Organization Address [facility] Co de Phone Number [facility] [place] [address] * (ABNORMAL) Basic Metabolic Panel (10/13/2023 4:07 AM EDT) Glucose 115 65 - 199 mg/dL 10/13/2023 4:55 AM [facility] Comment:Glucose Concentratio n >=200 mg/dL plus symptoms is consistent with Diabetes Mellitus. Blood Urea Nitrogen 10 8 - 18 mg/dL 10/13/2023 4:55 AM [facility] Creatinine 0.95 0.70 - 1.20 mg/dL 10/13/2023 4:55 AM [facility] Sodium 142 135 - 145 mMol/L 10/13/2023 4:55 AM [facility] Potassium 3.2(L) 3.5 - 5.0 mMol/L 10/13/2023 4:55 AM [facility] Chloride 109(H) 98 - 107 mMol/L 10/13/2023 4:55 AM [facility] Carbon Dioxide 20(L) 22 - 31 mMol/L 10/13/2023 4:55 AM [facility] Anion Gap 13 5 - 15 mMol/L 10/13/2023 4:55 AM [facility] Calcium 9.3 8.5 - 10.5 mg/dL 10/13/2023 4:55 AM [facility] Est Glomerular Filtration Rate - Female 58 mL/min/1. 73 m?? 10/13/2023 4:55 AM [facility] Comment: This patient's estimated GFR was [...] AM EDT More Orozco MD CHEMISTRY ORDERABLES [facility] [place] [address] * (ABNORMAL) CBC (with Diff) (10/13/2023 4:07 AM EDT) White Blood Cell 6.31 4.00 - 9.50 x10(3)/mc L 10/13/2023 4:30 AM EDT [facility] Red Blood Cell 3.68(L) 4.00 - 5.21 x10(6)/mc L 10/13/2023 4:30 AM EDT [facility] Hemoglobin 11.8 11.7 - 15.5 g/dL 10/13/2023 4:30 AM EDT [facility] Hematocrit 34.6(L) 35.7 - 45.8 % 10/13/2023 4:30 AM EDT [facility] Mean Cell Volume 94.0 82.6 - 94.4 fL 10/13/2023 4:30 AM EDT [facility] Mean Cell Hemoglobin 32.1(H) 27.1 - 32.0 pg 10/13/2023 4:30 AM EDT [facility] Mean Cell Hemoglobin Concentration 34.1 31.7 - 35.0 g/dL 10/13/2023 4:30 AM EDT [facility] Platelet 240 145 - 357 x10(3)/mc L 10/13/2023 4:30 AM EDT [facility] Mean Platelet Volume 10.3 7.6 - 12.9 fL 10/13/2023 4:30 AM EDT [facility] RDW Standard Deviation 43.8 37.0 - 46.0 fL 10/13/2023 4:30 AM EDT [facility] RDW coefficient of variation 12.8 11.5 - 14.1 % 10/13/2023 4:30 AM [facility] NRBC% auto 0.0 % 10/13/2023 4:30 AM [facility] NRBC Absolute 0.00 0.00 - 0.00 x10(3)/mc L 10/13/2023 4:30 AM [facility] Neutrophil % 65.4 % 10/13/2023 4:30 AM [facility] Neutrophil Absolute (ANC) - Automated 4.13 1.70 - 6.10 x10(3)/mc L 10/13/2023 4:30 AM [facility] Lymph % 26.1 % 10/13/2023 4:30 AM [facility] Lymph Absolute 1.65 0.90 - 3.20 x10(3)/mc L 10/13/2023 4:30 AM [facility] Monocyte % 6.2 % 10/13/2023 4:30 AM [facility] Monocyte Absolute 0.39 0.30 - 0.90 x10(3)/mc L 10/13/2023 4:30 AM [facility] Eos % 1.6 % 10/13/2023 4:30 AM [facility] Eos Absolute 0.10 0.00 - 0.40 x10(3)/mc L 10/13/2023 4:30 AM [facility] Basophil % 0.5 % 10/13/2023 4:30 AM [facility] Baso Absolute 0.03 0.00 - 0.10 x10(3)/mc L 10/13/2023 4:30 AM [facility] Immature Gran % 0.2 % 4:30 AM [facility] Immature Gran Absolute 0.01 0.00 - 0.04 x10(3)/mc L 10/13/2023 4:30 AM [facility] Blood VENOUS BLOOD SPECIMEN / Unknown IP Care Team Draw / Unknown 10/13/2023 4:07 AM EDT 10/13/2023 4:23 AM EDT More Orozco MD HEMATOLOGY ORDERABLE S [facility] [place] [address] * Magnesium (10/12/2023 5:09 AM EDT) Magnesium 0.78 0.69 - 1.07 mMol/L 10/12/2023 5:46 AM EDT [facility] Blood VENOUS BLOOD SPECIMEN / Unknown IP Care Team Draw / Unknown 10/12/2023 5:09 AM EDT 10/12/2023 5:17 AM EDT More Orozco MD CHEMISTRY ORDERABLES Performing Organization Address City/[facility]/ZIP Co de Phone Number [facility] [place] [address] * (ABNORMAL) Basic Metabolic Panel (10/12/2023 5:09 AM EDT) Glucose 104 65 - 199 mg/dL 10/12/2023 6:08 AM EDT [facility] Comment:Glucose Concentratio n >=200 mg/dL plus symptoms is consistent with Diabetes Mellitus. Blood Urea Nitrogen 12 8 - 18 mg/dL 10/12/2023 6:08 AM EDT [facility] Creatinine 0.91 0.70 - 1.20 mg/dL 10/12/2023 6:08 AM EDT [facility] Sodium 143 135 - 145 mMol/L 10/12/2023 6:08 AM EDT [facility] Potassium 3.0(LLL) 3.5 - 5.0 mMol/L 10/12/2023 6:08 AM EDT [facility] Chloride 109(H) 98 - 107 mMol/L 10/12/2023 6:08 AM EDT [facility] Carbon Dioxide 23 22 - 31 mMol/L 10/12/2023 6:08 AM EDT [facility] Anion Gap 11 5 - 15 mMol/L 10/12/2023 6:08 AM EDT [facility] Calcium 9.1 8.5 - 10.5 mg/dL 10/12/2023 6:08 AM EDT [facility] Est Glomerular Filtration Rate - Female 61 mL/min/1. 73 m?? 10/12/2023 6:08 AM EDT [facility] Comment: This patient's estimated GFR was [...] AM EDT More Orozco MD CHEMISTRY ORDERABLES [facility] [place] [address] * (ABNORMAL) CBC (with Diff) (10/12/2023 5:09 AM EDT) White Blood Cell 5.10 4.00 - 9.50 x10(3)/mc L 10/12/2023 5:21 AM EDT [facility] Red Blood Cell 3.51(L) 4.00 - 5.21 x10(6)/mc L 10/12/2023 5:21 AM EDT [facility] Hemoglobin 11.3(L) 11.7 - 15.5 g/dL 10/12/2023 5:21 AM [facility] Hematocrit 33.2(L) 35.7 - 45.8 % 10/12/2023 5:21 AM [facility] Mean Cell Volume 94.6(H) 82.6 - 94.4 fL 10/12/2023 5:21 AM [facility] Mean Cell Hemoglobin 32.2(H) 27.1 - 32.0 pg 10/12/2023 5:21 AM [facility] Mean Cell Hemoglobin Concentration 34.0 31.7 - 35.0 g/dL 10/12/2023 5:21 AM [facility] Platelet 229 145 - 357 x10(3)/mc L 10/12/2023 5:21 AM [facility] Mean Platelet Volume 10.2 7.6 - 12.9 fL 10/12/2023 5:21 AM [facility] RDW Standard Deviation 43.5 37.0 - 46.0 fL 10/12/2023 5:21 AM [facility] RDW coefficient of variation 12.7 11.5 - 14.1 % 10/12/2023 5:21 AM [facility] NRBC% auto 0.0 % 10/12/2023 5:21 AM [facility] NRBC Absolute 0.00 0.00 - 0.00 x10(3)/mc L 10/12/2023 5:21 AM [facility] Neutrophil % 54.2 % 10/12/2023 5:21 AM [facility] Neutrophil Absolute (ANC) - Automated 2.77 1.70 - 6.10 x10(3)/mc L 10/12/2023 5:21 AM [facility] Lymph % 35.9 % 10/12/2023 5:21 AM [facility] Lymph Absolute 1.83 0.90 - 3.20 x10(3)/mc L 10/12/2023 5:21 AM [facility] Monocyte % 7.3 % 10/12/2023 5:21 AM EDT [facility] Monocyte Absolute 0.37 0.30 - 0.90 x10(3)/mc L 10/12/2023 5:21 AM EDT [facility] Eos % 1.8 % 10/12/2023 5:21 AM EDT [facility] Eos Absolute 0.09 0.00 - 0.40 x10(3)/mc L 10/12/2023 5:21 AM EDT [facility] Basophil % 0.6 % 10/12/2023 5:21 AM EDT [facility] Baso Absolute 0.03 0.00 - 0.10 x10(3)/mc L 10/12/2023 5:21 AM EDT [facility] Immature Gran % 0.2 % 5:21 AM EDT [facility] Immature Gran Absolute 0.01 0.00 - 0.04 x10(3)/mc L 10/12/2023 5:21 AM EDT [facility] Blood VENOUS BLOOD SPECIMEN / Unknown IP Care Team Draw / Unknown 10/12/2023 5:09 AM EDT 10/12/2023 5:17 AM EDT More Orozco MD HEMATOLOGY ORDERABLE S [facility] [place] [address] * (ABNORMAL) Hepatic Function Panel (10/12/2023 5:09 AM EDT) Albumin 3.9 3.2 - 5.2 g/dL 10/12/2023 5:46 AM EDT [facility] Aspartate Aminotransferase 15 <=30 unit/L 10/12/2023 5:46 AM EDT [facility] Alanine Aminotransferase 14 0 - 30 unit/L 10/12/2023 5:46 AM EDT [facility] Alkaline Phosphatase 46 35 - 105 unit/L 10/12/2023 5:46 AM EDT [facility] Bilirubin, Total 1.4(H) <=1.3 mg/dL 10/12/2023 5:46 AM EDT [facility] Bilirubin, Direct 0.2 0.0 - 0.3 mg/dL 10/12/2023 5:46 AM EDT [facility] Protein, Total 6.3 6.1 - 8.0 g/dL 10/12/2023 5:46 AM EDT [facility] Blood VENOUS BLOOD SPECIMEN / Unknown IP Care Team Draw / Unknown 10/12/2023 5:09 AM EDT 10/12/2023 5:17 AM EDT More Orozco MD CHEMISTRY ORDERABLES Performing Organization Address [facility] Co de Phone Number [facility] [place] [address] * Phosphorus (10/12/2023 5:09 AM EDT) Phosphorus 3.4 2.5 - 4.5 mg/dL 10/12/2023 5:46 AM EDT [facility] Blood VENOUS BLOOD SPECIMEN / Unknown IP Care Team Draw / Unknown 10/12/2023 5:09 AM EDT 10/12/2023 5:17 AM EDT More Orozco MD CHEMISTRY ORDERABLES Performing Organization Address City/[facility] Co de Phone Number [facility] [place] [address] * TSH (10/11/2023 6:17 PM EDT) Thyroid Stimulating Hormone 1.63 0.27 - 4.20 mcIU/mL 10/12/2023 1:15 AM EDT [facility] Comment: Reference Interval (mcIU/mL): ?? Females: ? First Trimester: 0.23-3.88 ? Second Trimester: 0.22-3.90 ? Third Trimester: 0.44-4.66 Blood VENOUS BLOOD SPECIMEN / Unknown IP Care Team Draw / Unknown 10/11/2023 6:17 PM EDT 10/11/2023 6:23 PM EDT More Orozco MD CHEMISTRY ORDERABLES Performing Organization Address City/[facility]/ZIP Co de Phone Number [facility] [place] [address] * Lipase (10/11/2023 6:17 PM EDT) Lipase 29 0 - 60 unit/L 10/12/2023 1:15 AM EDT [facility] Blood VENOUS BLOOD SPECIMEN / Unknown IP Care Team Draw / Unknown 10/11/2023 6:17 PM EDT 10/11/2023 6:23 PM EDT More Orozco MD CHEMISTRY ORDERABLES Performing Organization Address City/[facility] Co de Phone Number [facility] [place] [address] * (ABNORMAL) Troponin-T, Joseph Sensitivity 3 Hour (10/11/2023 6:17 PM EDT) Troponin-T, High Sensitivity 15(H) <=14 ng/L 10/11/2023 6:52 PM EDT [facility] Comment: This patient's troponin T concentration [...] can be found in the [facility] Laboratory Test Catalog Troponin - [email or web address] Reference: Fourth [place] Definition of Myocardial Infarction. Journal of the [place] [employer] 2018;72:6700-3863 Troponin-T, HS 3 hr delta 2 ng/L 10/11/2023 6:52 PM EDT [facility] Comment:The 3 hour Troponin T delta value is the absolute difference between the Troponin T concentrations of the initial and subsequent sample collected between 2 h: 45 min and 6 h following the initial collection Blood VENOUS BLOOD SPECIMEN / Unknown IP Care Team Draw / Unknown 10/11/2023 6:17 PM EDT 10/11/2023 6:23 PM EDT Karla Faria MD CHEMISTRY ORDERABLES [facility] [place] [address] * (ABNORMAL) Troponin-T, High Sensitivity 1 Hour (10/11/2023 3:59 PM EDT) [facility] Troponin-T, High Sensitivity 16(H) <=14 ng/L 10/11/2023 4:32 PM EDT [facility] Comment: This patient's troponin T concentration [...] can be found in the [facility] Laboratory Test Catalog Troponin - [email or web address] Reference: Fourth [place] Definition of Myocardial Infarction. Journal of the [place] [employer] 2018;72:1298-7164 Troponin-T, HS 1 hr delta 1 ng/L 10/11/2023 4:32 PM EDT [facility] Comment:The 1 hour Troponin T delta value is the absolute difference between the Troponin T concentrations of the initial and subsequent sample collected between 45 - 120 minutes following the initial collection. Blood VENOUS BLOOD SPECIMEN / Unknown Venipuncture / Unknown 10/11/2023 3:59 PM EDT 10/11/2023 4:05 PM EDT Karla Faria MD CHEMISTRY ORDERABLES [facility] [place] [address] * CT Angiogram Chest Abdomen Pelvis w Contrast (10/11/2023 3:44 PM EDT) WORKSTATION ID [id number] RAD Anatomical Region Laterality Modality Abdomen, Chest [...] who have questions please contact the health physician primary care sports medicine that requested your imaging first. ? Narrative [...] and of normal caliber. No dissection. Scattered [id number] atheromatous plaque is noted. Celiac: Patent. No [...] and of normal caliber. No dissection. Scattered [id number] atheromatous plaque is noted. Celiac: Patent. No [...] patients who have questions please contactthe health physician primary care sports medicine that requested your imaging first. Karla Faria MD IMG CT ORDERABLES * (ABNORMAL) Hemoglobin A1c (10/11/2023 3:01 PM EDT) Pathologist [facility] Hemoglobin A1c 6.1(H) 4.3 - 5.6 % 10/12/2023 1:06 AM EDT [facility] Comment: Per ADA guidelines, without clear [...] red blood cell turnover may not be procurement representative of glycemic control. Reference Interval: 4.3 - 5.6% 5.7 - 6.4%: Consistent with prediabetes >=6.5%: Consistent with diagnosis of diabetes mellitus Estimated Average Glucose 10/12/2023 1:06 AM EDT [facility] Comment:Not Calculated. Blood VENOUS BLOOD SPECIMEN / Unknown Venipuncture / Unknown 10/11/2023 3:01 PM EDT 10/11/2023 3:09 PM EDT Narrative [facility] - 10/12/2023 1:06 AM EDT Estimated average glucose (eAG) is calculated from the equation described in: Malvin HERNANDEZ, Jamal J, Janina R, et al. ??Translating the A1C assay into estimated average glucose values. ??Diabetes Care 2008:31(8):5928-0074. Additional resources are available on the ADA website (diabetes.org). More Orozco MD CHEMISTRY ORDERABLES [facility] [place] [address] * (ABNORMAL) Troponin-T, High Sensitivity (10/11/2023 3:01 PM EDT) Pathologist [facility] Troponin-T, High Sensitivity Initial 17(H) <=14 ng/L 10/11/2023 3:53 PM EDT [facility] Comment: This patient's troponin T concentration [...] can be found in the [facility] Laboratory Test Catalog Troponin - [email or web address] Reference: Fourth [place] Definition of Myocardial Infarction. Journal of the [place] [employer] 2018;72:3635-0004 Blood VENOUS BLOOD SPECIMEN / Unknown Venipuncture / Unknown 10/11/2023 3:01 PM EDT 10/11/2023 3:09 PM EDT Karla Faria MD CHEMISTRY ORDERABLES [facility] [place] [address] * Lipase (10/11/2023 3:01 PM EDT) Lipase 35 0 - 60 unit/L 10/11/2023 3:53 PM EDT [facility] Blood VENOUS BLOOD SPECIMEN / Unknown Venipuncture / Unknown 10/11/2023 3:01 PM EDT 10/11/2023 3:09 PM EDT Karla Faria MD CHEMISTRY ORDERABLES [facility] [place] [address] * Hepatic Function Panel (10/11/2023 3:01 PM EDT) Albumin 4.2 3.2 - 5.2 g/dL 10/11/2023 3:53 PM EDT [facility] Aspartate Aminotransferase 16 <=30 unit/L 10/11/2023 3:53 PM EDT [facility] Alanine Aminotransferase 16 0 - 30 unit/L 10/11/2023 3:53 PM EDT [facility] Alkaline Phosphatase 51 35 - 105 unit/L 10/11/2023 3:53 PM EDT [facility] Bilirubin, Total 1.1 <=1.3 mg/dL 10/11/2023 3:53 PM EDT [facility] Bilirubin, Direct 0.2 0.0 - 0.3 mg/dL 10/11/2023 3:53 PM EDT [facility] Protein, Total 7.1 6.1 - 8.0 g/dL 10/11/2023 3:53 PM EDT [facility] Blood VENOUS BLOOD SPECIMEN / Unknown Venipuncture / Unknown 10/11/2023 3:01 PM EDT 10/11/2023 3:09 PM EDT Karla Faria MD CHEMISTRY ORDERABLES [facility] [place] [address] * (ABNORMAL) Basic Metabolic Panel (10/11/2023 3:01 PM EDT) Glucose 105 65 - 199 mg/dL 10/11/2023 3:53 PM EDT [facility] Comment:Glucose Concentratio n >=200 mg/dL plus symptoms is consistent with Diabetes Mellitus. Blood Urea Nitrogen 14 8 - 18 mg/dL 10/11/2023 3:53 PM T [facility] Creatinine 0.91 0.70 - 1.20 mg/dL 10/11/2023 3:53 PM [facility] Sodium 144 135 - 145 mMol/L 10/11/2023 3:53 PM [facility] Potassium 3.1(L) 3.5 - 5.0 mMol/L 10/11/2023 3:53 PM [facility] Chloride 107 98 - 107 mMol/L 10/11/2023 3:53 PM [facility] Carbon Dioxide 23 22 - 31 mMol/L 10/11/2023 3:53 PM [facility] Anion Gap 14 5 - 15 mMol/L 10/11/2023 3:53 PM [facility] Calcium 9.9 8.5 - 10.5 mg/dL 10/11/2023 3:53 PM [facility] Est Glomerular Filtration Rate - Female 61 mL/min/1. 73 m?? 10/11/2023 3:53 PM [facility] Comment: This patient's estimated GFR was [...] Foundation Blood VENOUS BLOOD SPECIMEN / Unknown Venipuncture / Unknown 10/11/2023 3:01 PM EDT 10/11/2023 3:09 PM EDT Karla Faria MD CHEMISTRY ORDERABLES [facility] [place] [address] * (ABNORMAL) CBC (with Diff) (10/11/2023 3:01 PM EDT) White Blood Cell 6.04 4.00 - 9.50 x10(3)/mc L 10/11/2023 3:28 PM EDT [facility] Red Blood Cell 3.72(L) 4.00 - 5.21 x10(6)/mc L 10/11/2023 3:28 PM EDT [facility] Hemoglobin 12.0 11.7 - 15.5 g/dL 10/11/2023 3:28 PM T [facility] Hematocrit 34.5(L) 35.7 - 45.8 % 10/11/2023 3:28 PM EDT [facility] Mean Cell Volume 92.7 82.6 - 94.4 fL 10/11/2023 3:28 PM EDT [facility] Mean Cell Hemoglobin 32.3(H) 27.1 - 32.0 pg 10/11/2023 3:28 PM EDT [facility] Mean Cell Hemoglobin Concentration 34.8 31.7 - 35.0 g/dL 10/11/2023 3:28 PM EDT [facility] Platelet 246 145 - 357 x10(3)/mc L 10/11/2023 3:28 PM EDT [facility] Mean Platelet Volume 10.3 7.6 - 12.9 fL 10/11/2023 3:28 PM EDT [facility] RDW Standard Deviation 43.2 37.0 - 46.0 fL 10/11/2023 3:28 PM EDT [facility] RDW coefficient of variation 12.6 11.5 - 14.1 % 10/11/2023 3:28 PM [facility] NRBC% auto 0.0 % 10/11/2023 3:[facility] NR[facility] Absolute 0.00 0.00 - 0.00 x10(3)/mc L 10/11/2023 3:28 PM EDT [facility] Neutrophil % 67.7 % 10/11/2023 3:28 PM EDT [facility] Neutrophil Absolute (ANC) - Automated 4.09 1.70 - 6.10 x10(3)/mc L 10/11/2023 3:28 PM EDT [facility] Lymph % 25.5 % 10/11/2023 3:28 PM EDT [facility] Lymph Absolute 1.54 0.90 - 3.20 x10(3)/mc L 10/11/2023 3:28 PM EDT [facility] Monocyte % 5.6 % 10/11/2023 3:28 PM EDT [facility] Monocyte Absolute 0.34 0.30 - 0.90 x10(3)/mc L 10/11/2023 3:28 PM EDT [facility] Eos % 0.5 % 10/11/2023 3:28 PM EDT [facility] Eos Absolute 0.03 0.00 - 0.40 x10(3)/mc L 10/11/2023 3:28 PM EDT [facility] Basophil % 0.5 % 10/11/2023 3:28 PM EDT [facility] Baso Absolute 0.03 0.00 - 0.10 x10(3)/mc L 10/11/2023 3:28 PM EDT [facility] Immature Gran % 0.2 % 3:28 PM EDT [facility] Immature Gran Absolute 0.01 0.00 - 0.04 x10(3)/mc L 10/11/2023 3:28 PM EDT [facility] Blood VENOUS BLOOD SPECIMEN / Unknown Venipuncture / Unknown 10/11/2023 3:01 PM EDT 10/11/2023 3:09 PM EDT Karla Faria MD HEMATOLOGY ORDERABLE S [facility] [place] [address] * (ABNORMAL) Urinalysis Microscopic Reflex to Culture (10/11/2023 2:54 PM EDT) Bacteria, Urine None None /HPF 3:52 PM EDT [facility] RBC, Urine 5(H) 0 - 4 /HPF 10/11/2023 3:52 PM EDT [facility] WBC, Urine 0 0 - 5 /HPF 10/11/2023 3:52 PM EDT [facility] Squamous Epithelial Cells, Urine 1 <5 /HPF 10/11/2023 3:52 PM EDT [facility] Hyaline Casts, Urine 0 0 - 2 /LPF 10/11/2023 3:52 PM EDT [facility] Comment 10/11/2023 3:52 PM EDT [facility] Comment:Interpret results wi th caution, microscopic results are from a suboptimal specimen. Urine URINE SPECIMEN OBTAINED BY CLEAN CATCH PROCEDURE / Unknown Non Blood Collection / Unknown 10/11/2023 2:54 PM EDT 10/11/2023 3:09 PM EDT Karla Faria MD URINE ORDERABLES Performing Organization Address [facility] Co de Phone Number [facility] [place] [address] * Urinalysis Microscopic with Reflex to Culture (10/11/2023 2:54 PM EDT) Urine URINE SPECIMEN OBTAINED BY CLEAN CATCH PROCEDURE / Unknown Non Blood Collection / Unknown 10/11/2023 2:54 PM EDT 10/11/2023 3:09 PM EDT Karla Faria MD URINE ORDERABLES [facility] [place] [address] * (ABNORMAL) Urinalysis with reflex Culture (10/11/2023 2:54 PM EDT) Glucose, Urine Dipstick Negative Negative 10/11/2023 3:52 PM EDT [facility] Protein, Urine Dipstick Negative Negative 10/11/2023 3:52 PM EDT [facility] Bilirubin, Urine Dipstick Negative Negative 10/11/2023 3:52 PM EDT [facility] Comment:Clinical correlation required for positive Urine Bilirubin results as false positive may occur with some drugs and drug related products. If a false positive is suspected a serum total bilirubin should be considered if clinically indicated. Urobilinogen, Urine Dipstick Normal Normal, 0.2 mg/dL, 1.0 mg/dL 10/11/2023 3:52 PM EDT [facility] pH, Urine (dipstick) 7.0 5.0 - 8.0 10/11/2023 3:52 PM EDT [facility] Blood, Urine Dipstick Moderate(A) Negative 10/11/2023 3:52 PM EDT [facility] Ketone, Urine Dipstick Negative Negative 10/11/2023 3:52 PM EDT [facility] Nitrite, Urine Dipstick Negative Negative 10/11/2023 3:52 PM EDT [facility] Leukocytes, Urine Dipstick Negative Negative 10/11/2023 3:52 PM T [facility] Specific [place] Urine Automated 1.007 1.005 - 1.030 10/11/2023 3:52 PM EDT [facility] Appearance, Urine Dipstick Clear Clear 10/11/2023 3:52 PM EDT [facility] Color, Urine Dipstick Yellow Yellow, Dark Yellow 10/11/2023 3:52 PM EDT [facility] Urine URINE SPECIMEN OBTAINED BY CLEAN CATCH PROCEDURE / Unknown Non Blood Collection / Unknown 10/11/2023 2:54 PM EDT 10/11/2023 3:09 PM EDT Karla Faria MD URINE ORDERABLES [facility] [place] [address] * EKG 12 Lead (10/11/2023 2:49 PM EDT) Ventricular rate 53 BPM MUSE SYSTEM Atrial Rate 53 BPM MUSE SYSTEM P-R Interval 176 ms MUSE SYSTEM QRS Duration 70 ms MUSE SYSTEM Q-T Interval 428 ms MUSE SYSTEM QTC Calculated (Bezet) 401 ms MUSE SYSTEM Calculated P [place] 65 degrees MUSE SYSTEM Calculated R [place] 6 degrees MUSE SYSTEM Calculated T [place] 51 degrees MUSE SYSTEM INTERPRETATION Sinus bradycardia Low voltage QRS Cannot rule out Anteroseptal infarct (cited on or before 21-JUN-2010) Abnormal ECG When compared with ECG of 21-JUN-2010 10:35, Questionable change in initial forces of Anteroseptal leads Confirmed by MD LALITA, BARBARA ([id number]) on 10/11/2023 3:30:54 PM MUSE SYSTEM 10/11/2023 2:49 PM EDT 10/11/2023 3:30 PM EDT Karla Faria MD ECG ORDERABLES Performing Organization Address [facility] Co de Phone Number MUSE SYSTEM documented in this encounter Visit Diagnoses Not on filedocumented in this encounter Admitting Diagnoses Diagnosis Hypertensive urgency Unspecified essential hypertension documented in this encounter Administered Medications Inactive Administered Medications - up to 3 most recent administrations Medication Order MAR Action Action Date Dose Rate Site amLODIPine (Norvasc) tablet 5 mg 5 mg, Oral, DAILY, First dose on Fri10/13/23 at 0700, Until Discontinued, Routine Given 10/13/2023 2:51 PM EDT 5 mg diphenhydrAMINE/aluminum-magnesiu m hydroxide with simethicone/lidocaine (BMX) (6.67 mg-0.83 mg-13.33 mg-1.33 mg/mL) oral liquid 5 mL 5 mL, Oral, 3 TIMES DAILY, First dose (after last modification) on Fri10/13/23 at 1500, Until Discontinued, Each 5 mL contains equal parts of diphenhydramine (BENADYL), aluminum-magnesium hydroxide w/ simethicone (MAALOX), and lidocaine (XYLOCAINE), Routine hydrALAZINE (Apresoline) (20 mg/mL) injection 5 mg 5 mg, Intravenous, EVERY 6 HOURS PRN, Starting on 10/13/23 at 0629, Until Fri10/13/23 at 1956, High Blood Pressure, for SBP > 170 hydroCHLOROthiazide (HydroDiuril) tablet 12.5 mg 12.5 mg, Oral, DAILY, First dose on 10/11/23 at 2345, Until Discontinued, Routine Given 10/13/2023 2:51 PM EDT 12.5 mg Given 10/12/2023 9:18 AM EDT 12.5 mg losartan (Cozaar) tablet 100 mg 100 mg, Oral, DAILY, First dose on 10/12/23 at 0900, Until Discontinued, Routine Given 10/13/2023 2:51 PM EDT 100 mg Given 10/12/2023 9:17 AM EDT 100 mg ondansetron (pf) (Zofran) (2 mg/mL) injection 4 mg 4 mg, Intravenous, EVERY 8 HOURS PRN, Starting on Fri10/12/23 at 0451, Until Fri10/13/23 at 1956, Nausea, Use ondansetron first line and if ineffective use prochlorperazine second line. pantoprazole (Protonix) injection 40 mg 40 mg, Intravenous, 2 TIMES DAILY, First dose on 10/11/23 at 2335, Until Discontinued, Reconstitute with 10 mL of normal saline to a concentration of 4 mg/mL and inject slowly over 2 minutes. Given 10/13/2023 2:52 PM EDT 40 mg Given 10/12/2023 8:26 PM EDT 40 mg Given 10/12/2023 9:17 AM EDT 40 mg prochlorperazine (Compazine) (5 mg/mL) injection 10 mg 10 mg, Intravenous, EVERY 6 HOURS PRN, Starting on 10/12/23 at 0450, Until Fri10/13/23 at 1956, Nausea, Vomiting, Use ondansetron first line and if ineffective use prochlorperazine second line., Routine prochlorperazine (Compazine) tablet 10 mg 10 mg, Oral, EVERY 6 HOURS PRN, Starting on 10/12/23 at 0450, Until Fri10/13/23 at 1956, Nausea, Use ondansetron first line and if ineffective use prochlorperazine second line. Maximum dose: 50 mg / 24 hrs, Routine rivaroxaban (Xarelto) tablet 10 mg 10 mg, Oral, DAILY, First dose (after last modification) on Fri10/12/23 at 0900, Until Discontinued, Routine, rivaroxabain (Xarelto) Indication: DVT or PE, Chronic/Long-term (Secondary Prevention) Given 10/13/2023 2:51 PM EDT 10 mg Given 10/12/2023 9:17 AM EDT 10 mg sodium chloride 0.9 % (flush) (BD PosiFlush Normal Saline 0.9) flush 5 mL 5 mL, Intravenous, 2 TIMES DAILY, First dose on 10/11/23 at 2345, Until Discontinued, Routine Given 10/13/2023 2:52 PM EDT 5 mLs Given 10/12/2023 8:26 PM EDT 5 mLs Given 10/12/2023 9:17 AM EDT 5 mLs documented in this encounter Active and Recently Administered Medications Times are shown in EDT. Scheduled Medication Order 10/11/2023 10/12/2023 10/13/2023 alum-mag hydroxide-simeth (Maalox) (40 mg-40 mg-4 mg/mL) oral liquid 10 mL (COMPLETED) 10 mL, Oral, ONCE, 1 dose, On Fri10/13/23 at 0100, STAT 0051 (Given - Provider: Patricia Jj RN) amLODIPine (Norvasc) tablet 5 mg 5 mg, Oral, DAILY, First dose on Fri10/13/23 at 0700, Until Discontinued, Routine 0957 (APR Hold - Provider: Admin Adt - Reason: Transfer to a Procedural area)1132 (APR Unhold - Provider: Admin Adt)1451 (Given - Provider: Erendira Barnhart RN) diphenhydrAMINE/aluminum- magnesium hydroxide with simethicone/lidocaine (BMX) (6.67 mg-0.83 mg-13.33 mg-1.33 mg/mL) oral liquid 5 mL (CANCELED) 5 mL, Oral, 2 TIMES DAILY, First dose on Fri10/11/23 at 1450, Until Discontinued, Each 5 mL contains equal parts of diphenhydramine (BENADYL), aluminum-magnesium hydroxide w/ simethicone (MAALOX), and lidocaine (XYLOCAINE), Routine 1454 (Given - Provider: Perlita Milian RN)2100 (Not Given - Provider: Perlita Milian RN - Reason: Patient/family refused) 0917 (Given - Provider: Jennifer Zhou RN)2100 (Not Given - Provider: Patricia Jj RN - Reason: Patient/family refused) 0900 (Hold - Provider: Erendira Barnhart RN - Reason: Transfer to a Procedural area)0957 (APR Hold - Provider: Admin Adt - Reason: Transfer to a Procedural area)1132 (APR Unhold - Provider: Admin Adt) diphenhydrAMINE/aluminum- magnesium hydroxide with simethicone/lidocaine (BMX) (6.67 mg-0.83 mg-13.33 mg-1.33 mg/mL) oral liquid 5 mL 5 mL, Oral, 3 TIMES DAILY, First dose (after last modification) on Fri10/13/23 at 1500, Until Discontinued, Each 5 mL contains equal parts of diphenhydramine (BENADYL), aluminum-magnesium hydroxide w/ simethicone (MAALOX), and lidocaine (XYLOCAINE), Routine 1500 (Due) famotidine (Pepcid) (10 mg/mL) injection 20 mg (COMPLETED) 20 mg, Intravenous, ONCE, 1 dose, On Fri10/12/23 at 0040 0201 (Given - Provider: Elza Wagner RN) famotidine (Pepcid) (10 mg/mL) injection 20 mg (COMPLETED) 20 mg, Intravenous, ONCE, 1 dose, On Fri10/13/23 at 0100 0056 (Given - Provider: Patricia Jj RN) hydrALAZINE (Apresoline) (20 mg/mL) injection 5 mg (COMPLETED) 5 mg, Intravenous, ONCE, 1 dose, On Fri10/13/23 at 0115 0051 (Given - Provider: Patricia Jj RN) hydroCHLOROthiazide (HydroDiuril) tablet 12.5 mg 12.5 mg, Oral, DAILY, First dose on Fri10/11/23 at 2345, Until Discontinued, Routine 0918 (Given - Provider: Jennifer Zhou RN) 0957 (APR Hold - Provider: Admin Adt - Reason: Transfer to a Procedural area)1132 ([facility] Unhold - Provider: Admin Adt)1451 (Given - Provider: Erendira Barnhart RN) lactated Ringers 500 mL IV bolus (COMPLETED) Intravenous, ONCE, 1 dose, On 10/11/23 at 2150 2200 (New Bag - Provider: Perlita Milian, RN)2257 (Stopped - Provider: Perlita Milian RN) LORazepam (Ativan) (2 mg/mL) injection syringe 0.5 mg 0.5 mg, Intravenous, ONCE, 1 dose, On 10/13/23 at 0215, Routine 0400 (Not Given - Provider: Elza Wagner RN - Reason: Patient/family refused)0957 ([facility] Hold - Provider: Admin Adt - Reason: Transfer to a Procedural area)1132 ([facility] Unhold - Provider: Admin Adt) losartan (Cozaar) tablet 100 mg 100 mg, Oral, DAILY, First dose on 10/12/23 at 0900, Until Discontinued, Routine 0917 (Given - Provider: Jennifer Zhou RN) 0957 ([facility] Hold - Provider: Admin Adt - Reason: Transfer to a Procedural area)1132 ([facility] Unhold - Provider: Admin Adt)1451 (Given - Provider: Erendira Barnhart RN) pantoprazole (Protonix) injection 40 mg 40 mg, Intravenous, 2 TIMES DAILY, First dose on 10/11/23 at 2335, Until Discontinued, Reconstitute with 10 mL of normal saline to a concentration of 4 mg/mL and inject slowly over 2 minutes. 2343 (Given - Provider: Perlita Milian RN) 0917 (Given - Provider: Jennifer Zhou, LINDEN)2025 (Given - Provider: Patricia Jj RN) 0957 ([facility] Hold - Provider: Admin Adt - Reason: Transfer to a Procedural area)1132 ([facility] Unhold - Provider: Admin Adt)1452 (Given - Provider: Erendira Barnhart RN) potassium chloride 10 mEq in sterile water 100 mL infusion (COMPLETED) 10 mEq, Intravenous, EVERY 2 HOURS, 3 doses, First dose on 10/12/23 at 0645, Last dose on 10/12/23 at 1045, Administer over 60 Minutes, Doses of 20 mEq or greater require a Central Line Warning Vesicant/Irritant Medication 0647 (New Bag - Provider: Patricia Jj RN - Comment: ordered this medication be run over 2hrs. rate is 50ml/hr)0901 (Stopped - Provider: Jennifer Zhou RN)0902 (New Bag - Provider: Jennifer Zhou RN)1115 (Stopped - Provider: Skye Stout, LINDEN)1118 (New Bag - Provider: Skye Stout, RN)1222 (Stopped - Provider: Skye Stout, RN) rivaroxaban (Xarelto) tablet 10 mg 10 mg, Oral, DAILY, First dose (after last modification) on 10/12/23 at 0900, Until Discontinued, Routine, rivaroxabain (Xarelto) Indication: DVT or PE, Chronic/Long-term (Secondary Prevention) 0917 (Given - Provider: Jennifer Zhou RN) 0957 (APR Hold - Provider: Admin Adt - Reason: Transfer to a Procedural area)1132 (APR Unhold - Provider: Admin Adt)1451 (Given - Provider: Erendira Barnhart RN) sodium chloride 0.9 % (flush) (BD PosiFlush Normal Saline 0.9) flush 5 mL 5 mL, Intravenous, 2 TIMES DAILY, First dose on 10/11/23 at 2345, Until Discontinued, Routine 2352 (Given - Provider: Perlita Milian RN) 0917 (Given - Provider: Jennifer Zhou RN)2025 (Given - Provider: Patricia Jj RN) 0957 (APR Hold - Provider: Admin Adt - Reason: Transfer to a Procedural area)1132 ([facility] Unhold - Provider: Admin Adt)1452 (Given - Provider: Erendira Barnhart RN) Continuous Medication Order 10/11/2023 10/12/2023 10/13/2023 sodium chloride 0.9% with potassium chloride 20 mEq infusion () 100 mL/hr, Intravenous, CONTINUOUS, Starting on 10/11/23 at 2335, Until 10/12/23 at 1434 2343 (New Bag - Provider: Perlita Milian, RN) 0902 (New Bag - Provider: Jennifer Zhou, RN)1944 (Stopped - Provider: Patricia Jj, RN) PRN Medication Order 10/11/2023 10/12/2023 10/13/2023 hydrALAZINE (Apresoline) (20 mg/mL) injection 5 mg 5 mg, Intravenous, EVERY 6 HOURS PRN, Starting on 10/13/23 at 0629, Until 10/13/23 at 1957, High Blood Pressure, for SBP > 170 0957 (APR Hold - Provider: Admin Adt - Reason: Transfer to a Procedural area)1132 (APR Unhold - Provider: Admin Adt) iohexoL (Omnipaque) (350 mg/mL) solution 0-200 mL (COMPLETED) 0-200 mL, Intravenous, ONCE PRN, 1 dose, Starting on 10/11/23 at 1537, Until 10/11/23 at 1537, Per Protocol, Warning Vesicant/Irritant Medication , Radiology Contrast, Routine 1537 (Given - Provider: Kenya Perez, RT) lidocaine (Xylocaine) 1% (10 mg/mL) injection 3 mg 3 mg (0.3 mL), Subcutaneous, ONCE PRN, 1 dose, Starting on 10/11/23 at 2327, Until 10/13/23 at 1957, for discomfort with PIV insertion, Routine 0957 (APR Hold - Provider: Admin Adt - Reason: Transfer to a Procedural area)1132 (APR Unhold - Provider: Admin Adt) melatonin tablet 3 mg 3 mg, Oral, NIGHTLY PRN, Starting on 10/11/23 at 2327, Until 10/13/23 at 1957, Sleep, Sleep, Routine 0957 (APR Hold - Provider: Admin Adt - Reason: Transfer to a Procedural area)1132 (APR Unhold - Provider: Admin Adt) ondansetron (pf) (Zofran) (2 mg/mL) injection 4 mg (CANCELED) 4 mg, Intravenous, EVERY 8 HOURS PRN, 3 doses, Starting on 10/11/23 at 2323, Until 10/12/23 at 0452, Nausea 2343 (Given - Provider: Perlita Milian RN) ondansetron (pf) (Zofran) (2 mg/mL) injection 4 mg 4 mg, Intravenous, EVERY 8 HOURS PRN, Starting on 10/12/23 at 0451, Until 10/13/23 at 1957, Nausea, Use ondansetron first line and if ineffective use prochlorperazine second line. 0957 ([facility] Hold - Provider: Admin Adt - Reason: Transfer to a Procedural area)1132 ([facility] Unhold - Provider: Admin Adt) prochlorperazine (Compazine) (5 mg/mL) injection 10 mg(Linked Group 1) 10 mg, Intravenous, EVERY 6 HOURS PRN, Starting on 10/12/23 at 0450, Until Fri10/13/23 at 195, Nausea, Vomiting, Use ondansetron first line and if ineffective use prochlorperazine second line., Routine 956 ([facility] Hold - Provider: Admin Adt - Reason: Transfer to a Procedural area)113 ([facility] Unhold - Provider: Admin Adt) prochlorperazine (Compazine) tablet 10 mg(Linked Group 1) 10 mg, Oral, EVERY 6 HOURS PRN, Starting on 10/12/23 at 0450, Until Fri10/13/23 at 1957, Nausea, Use ondansetron first line and if ineffective use prochlorperazine second line. Maximum dose: 50 mg / 24 hrs, Routine 956 ([facility] Hold - Provider: Admin Adt - Reason: Transfer to a Procedural area)1132 ([facility] Unhold - Provider: Admin Adt) sodium chloride 0.9 % (flush) (BD PosiFlush Normal Saline 0.9) flush 5-20 mL 5-20 mL, Intravenous, EVERY 1 MIN PRN, Starting on 10/11/23 at 2327, Until 10/13/23 at 1957, flush, Flush pertains to all indwelling lines. Flush per protocol found in the job aid using the link provided on this medication record., Routine 09 ([facility] Hold - Provider: Admin Adt - Reason: Transfer to a Procedural area)1132 ([facility] Unhold - Provider: Admin Adt) Linked Groups Order Group 1: prochlorperazine (Compazine) (5 mg/mL) injection 10 mgJump to med 10 mg, Intravenous, EVERY 6 HOURS PRN, Starting on 10/12/23 at 0450, Until Fri10/13/23 at 1956, Nausea, Vomiting, Use ondansetron first line and if ineffective use prochlorperazine second line., Routine Or prochlorperazine (Compazine) tablet 10 mgJump to med 10 mg, Oral, EVERY 6 HOURS PRN, Starting on 10/12/23 at 0450, Until Fri10/13/23 at 1956, Nausea, Use ondansetron first line and if ineffective use prochlorperazine second line. Maximum dose: 50 mg / 24 hrs, Routine documented in this encounter Care Teams Supervisor Modern Languages Relationship Specialty Start Date End Date Kumar Schultz MD [address] [place] [address] PCP - General Family Medicine 03/19/19 documented as of this encounter
--- OUTSIDE RECORDS SUMMARY | 2023-10-19 06:21 | XMS_ITS | Encounter Summary ---
Author Organization Formerly [facility] [place] [address] Care Team Providers Care Communications Engineering Technician Name Role Phone Candie Skaggs MD Primary Care Provider [phone] Encounter Details Date Type Department Care Team [...] AM EDT TH Visit (TeleHealth) [place] [address] Olga Melgar APRN [facility] [place] [address] documented as of this encounter Visit Diagnoses Not on filedocumented in this encounter Care Teams Communications Engineering Technician Relationship Specialty Start Date End Date Candie Skaggs MD [address] [place] [address] PCP - General Family Medicine 03/19/19 documented as of this encounter
--- OUTSIDE RECORDS SUMMARY | 2023-10-19 06:21 | XMS_ITS | Encounter Summary ---
[place] [address] Care Team Providers Care Rn Travel Name Role Phone Stefan Arteaga MD Primary Care Provider [phone] Encounter Details Date Type Department Care Team (Late st Contact Info) Description 05/02/2017 External [place] [address] Social History Tobacco Use Types [...] AM EDT TH Visit (TeleHealth) [place] [address] Olga Melgar APRN [facility] [address] documented as of this encounter Procedures Procedure Name Priority Date/Time Associated Diagnosis Comments ECG SCAN Routine 05/02/2017 documented in this encounter Results * Scan Doc: ECG (05/02/2017) Historical Provider MD ISABEL MGR SCAN EX T ORDR/RSLT documented in this encounter Visit Diagnoses Not on filedocumented in this encounter Care Teams Rn Travel Relationship Specialty Start Date End Date Stefan Arteaga MD PCP - General 10/13/14 03/18/19 documented as of this encounter
--- OUTSIDE RECORDS SUMMARY | 2023-10-19 06:21 | XMS_ITS | Encounter Summary ---
Author Organization [facility] [place] [address] Care Team Providers Care Mechanical Maintenance Instructor Name Role Phone Candie Skaggs MD Primary Care Provider [phone] Encounter Details Date Type Department Care Team [...] AM EDT TH Visit (TeleHealth) [place] [address] Olga Melgar APRN [facility] [place] [address] documented as of this encounter Visit Diagnoses Not on filedocumented in this encounter Care Teams Mechanical Maintenance Instructor Relationship Specialty Start Date End Date Candie Skaggs MD [address] [place] [address] PCP - General Family Medicine 03/19/19 documented as of this encounter
--- OUTSIDE RECORDS SUMMARY | 2023-10-19 06:21 | XMS_ITS | Encounter Summary ---
Author Organization Formerly [facility] [place] [address] Care Team Providers Care Manager Pulmonary Name Role Phone Candie Skaggs MD Primary Care Provider [phone] Reason for Visit * Consultation (Routine) - Authorized Specialty Diagnoses / Procedures Referred By Ko duarte Referred To Contact Dermatology Diagnoses Dysplastic nevus of skin Candie Skaggs MD [address] [place] [address] [facility] Dermatology [address] [place] [address] Referral ID Status Reason Start Date Expiration Date Visits Requested Visits Authorized [id number] Authorized Consult, Test & Treat PCP Updated and/or Approved 3 01/01/2024 6 6 Encounter Details Date Type Department Care Team (Late st Contact Info) Description 01/24/2023 10:30 AM EST Office Visit Dermatology at [facility] [address] [place] [address] Garfield Samuels MD [facility] [address] DAL[place] [address] Neoplasm of unspecified behavior of [...] Light (or IPL) unit made by [employer]) and occasionally use a separate alexandrite or [...] N/A RTC: pending path []Note routed to industrial controller []Recall placed in scheduling system []Appointment scheduled at checkout Scribe attestation: Jennifer Miller RN has performed the documentation for this encounter in the presence of and acting as a scribe for Garfield Samuels MD. I performed the above scribed service and agree with the accuracy of the documentation in this encounter. Reviewed and signed by: Garfield Samuels MD Dermatology [facility] * Garfield Samuels MD - 01/24/2023 10:30 AM EST Biopsy results: Consistent with Lentigo -benign pigmented lesion -no further intervention required Seen and reviewed by: Garfield Samuels MD Staff Workforce Specialist Department of Dermatology documented in this encounter Plan of Treatment Upcoming Encounters Date Type Department Care Team (Late st Contact Info) Description 10/27/2023 10:00 AM EDT TH Visit (TeleHealth) [place] [address] [address] Melgar [address]N [facility] [place] [address] documented as of this encounter Procedures Procedure [...] AM EST 01/24/2023 10:[address] [facility] - 01/24/2023 10:45 AM EST Specimen requisition ordered. ??Separate Pathology report to follow Garfield Samuels MD PATHOLOGY/CYTOLOGY O RDERABLES [facility] [place] [address] * Surgical Pathology Report (01/24/2023 10:44 AM EST) Final Diagnosis [id number] ? Location: [facility] The signing pathologist has (i) examined the relevant preparation(s) for the specimen(s) and (ii) rendered or confirmed the diagnosis(es). . ?Surgical Pathology DIAGNOSIS L eft cheek, skin shave biopsy: - ??Basal layer hyperpigmentation overlying scattered melanophages, consistent with lentigo Electronically signed by: ?Troy SMITH, PhD, Mandi Verified: ??01/31/2023 11:12 ??Dermatopathologist Performed at: ??[facility] Dept. of Pathology, [place] [address] Incident Manager: Ly Goodrich MD, FCAP, ??CLIA Certificate: [id number] SPECIMEN(S) SUBMITTED A - left cheek, skin [...] labeled A1. ??sdy 01/31/2023 11:12 AM EST [facility] SPECIMEN FROM SKIN / Unknown 01/24/2023 10:44 AM EST 01/24/2023 10:44 AM EST Garfield Samuels MD PATHOLOGY/CYTOLOGY O [facility] [address] [place] [address] documented in this encounter Visit Diagnoses Diagnosis Neoplasm of unspecified behavior of bone, soft tissue, and skin Seborrheic keratosis Other seborrheic keratosis Lentigines Other dyschromia Dermatitis Contact dermatitis and other eczema, due to unspecified cause documented in this encounter Care Teams Manager Pulmonary Relationship Specialty Start Date End Date Candie Skaggs MD [address] [place] [address] PCP - General Family Medicine 03/19/19 documented as of this encounter
--- OUTSIDE RECORDS SUMMARY | 2023-10-19 06:21 | XMS_ITS | Encounter Summary ---
Author Organization [facility] [place] [address] Care Team Providers Care Continuous Churn Buttermaker Name Role Phone Candie Skaggs MD Primary Care Provider [phone] Encounter Details Date Type Department Care Team [...] AM EDT TH Visit (TeleHealth) [place] [address] [facility] [place] [address] documented as of this encounter Visit Diagnoses Not on filedocumented in this encounter Care Teams Continuous Churn Buttermaker Relationship Specialty Start Date End Date Candie Skaggs MD [address] [place] [address] PCP - General Family Medicine 03/19/19 documented as of this encounter
--- OUTSIDE RECORDS SUMMARY | 2023-10-19 06:21 | XMS_ITS | Encounter Summary ---
Author Organization [facility] [place] [address] Care Team Providers Care Donkey Ride Operator Name Role Phone Candie Skaggs MD Primary Care Provider [phone] Encounter Details Date Type Department Care Team (Latest Contact Info) Description 10/11/2023 Travel Social History Tobacco Use Types Packs/Day Years Used Date Smoking Tobacco: Former Cigarettes 0.5 3 Smokeless Tobacco: Former Quit: 06/22/1979 Alcohol Use Standard Drinks/Week Comments Yes 2 (1 standard drink = 0.6 oz pur e alcohol) [facility] Inpatient Questions Answer Date Recorded Does Anyone [...] Encounters Date Type Department Care Team (Late Contact Info) Description 10/27/2023 10:00 AM EDT TH Visit (TeleHealth) [place] [address] Olga Melgar APRN [facility] [place] [address] documented as of this encounter Visit Diagnoses Not on filedocumented in this encounter Care Teams Donkey Ride Operator Relationship Specialty Start Date End Date Candie Skaggs MD [address] [place] [address] PCP - General Family Medicine 03/19/19 documented as of this encounter
--- OUTSIDE RECORDS SUMMARY | 2023-10-19 06:21 | XMS_ITS | Encounter Summary ---
Author Organization [facility] [place] [address] Care Team Providers Care Infectious Diseases Physician Name Role Phone WinchesterEstee vance Thu VEGA Primary Care Provider [phone] Reason for Visit * Reason Comments Skin Lesion Encounter Details Date Type Department Care Team (Late st Contact Info) Description 01/17/2012 3:50 PM EST Office Visit Dermatology at [facility] [address] [place] [address] Jessenia Donovan MD [facility] DR DALIA [place] [address] Neoplasm of unspecified nature of bone, soft [...] supervision with direct supervision immediately available. (definition: [facility] GME Policy Statement on Graduate Medical Education, [...] concerns. Jessenia Donovan MD Resident in Dermatology [facility] Patient seen and evaluated with staff slack cooper: Prisca Brantley MD Section of Dermatology [facility] documented in this encounter Plan of Treatment Upcoming Encounters Date Type Department Care Team (Late st Contact Info) Description 10/27/2023 10:00 AM EDT TH Visit (TeleHealth) [place] [address] Olga Melgar APRN [facility] [place] [address] Scheduled Orders Name Type Priority Associated Diagnoses [...] 6:35 PM EST) Surgical Pathology Report ? [facility] ? Provider: ?? KEITHCELESTEO-IP, ? Pt. Name: ?? LALY, NELSY F ?JESSENIA Hightower ? Acc #: ?[id number] ? Pt. ? Col Date: ?? 01/17/2012 [...] dermoscopy / atypical rule out MM CERNER MILLENNIUM 01/17/2012 6:35 PM EST Jessenia Hightower MD PATHOLOGY/CYT OLOGY ORDERABLES Performing Organization Address [facility] Co de Phone Number CERNER MILLENNIUM * Specimen to Pathology (NON-OR) (01/17/2012 4:39 PM EST) AP Specimen 01/17/2012 4:39 PM EST 01/17/2012 4:39 PM EST Narrative CERNER MILLENNIUM - 01/17/2012 4:39 PM EST Specimen requisition ordered. ??Separate Pathology report to follow Prisca Brantley MD PATHOLOGY/CYTOLOGY O RDERABLES Performing Organization Address [facility] Co de Phone Number CERNER MILLENNIUM documented in this encounter Visit Diagnoses Diagnosis Neoplasm of unspecified nature of bone, soft tissue, and skin- Primary Herpes infection Herpes simplex without mention of complication Actinic keratosis documented in this encounter Care Teams Infectious Diseases Physician Relationship Specialty Start Date End Date Estee Novak APRN PCP - General 01/09/10 10/12/14 documented as of this encounter
--- OUTSIDE RECORDS SUMMARY | 2023-10-19 06:21 | XMS_ITS | Encounter Summary ---
Author Organization [facility] Address [facility] [place] [address] Care Team Providers Care Spinning Supervisor Name Role Phone Candie Skaggs MD Primary Care Provider Encounter Details Date Type Department Care Team (Latest Contact Info) Description 04/04/2022 4:13 PM EST - 04/04/2022 11:59 PM EST Hospital Encounter XRay at [address] [place] [id number] Lino Duke MD Right hand pain Discharge [...] AM EDT TH Visit (TeleHealth) [place] [address] Olga Melgar APRN [facility] [place] [address] documented as of this encounter Procedures Procedure [...] who have questions please contact the health healthcare analyst that requested your imaging first. ? Narrative [...] patients who have questions please contactthe health healthcare analyst that requested your imaging first. Lino Duke MD IMG DX ORDERABLES documented in this encounter Visit Diagnoses Diagnosis Right hand pain Pain in limb documented in this encounter Care Teams Spinning Supervisor Relationship Specialty Start Date End Date Candie Skaggs MD [address] [place] [address] PCP - General Family Medicine 03/19/19 documented as of this encounter
--- OUTSIDE RECORDS SUMMARY | 2023-10-19 06:21 | XMS_ITS | Encounter Summary ---
Author Organization [facility] [place] [address] Care Team Providers Care Press Worker Helper Name Role Phone Stefan Arteaga MD Primary Care Provider [phone] Encounter Details Date Type Department Care Team (Late st Contact Info) Description 05/02/2017 [place] [address] Milagros Alexander MD [facility] [place] [address] Social History Tobacco Use Types Packs/Day Years [...] 05/02/17 Initial contact time: 12:42pm Referring Provider: [facility] Patient Location: [facility] Presenting Symptoms per [...] gtt, OSH to recontact transfer center. As [facility] currently full with no expected further dischargestoday, accepted patient but suggested OSH also explore other transfer options. Will let us know if they transfer somewhere else. Milagros Alexander MD Fur Tailor documented in this encounter Plan of Treatment Upcoming Encounters Date Type Department Care Team (Late st Contact Info) Description 10/27/2023 10:00 AM EDT TH Visit (TeleHealth) [place] [address] Olga Melgar APRN [facility] [place] [address] documented as of this encounter Visit Diagnoses Not on filedocumented in this encounter Care Teams Press Worker Helper Relationship Specialty Start Date End Date Stefan Arteaga MD PCP - General 10/13/14 03/18/19 documented as of this encounter
--- OUTSIDE RECORDS SUMMARY | 2023-10-19 06:21 | XMS_ITS | Encounter Summary ---
Author Organization [facility] [place] [address] Care Team Providers Care Referral Nurse Name Role Phone Candie Skaggs MD Primary Care Provider [phone] Encounter Details Date Type Department Care Team (Late st Contact Info) Description 03/19/2019 2:30 PM EST Office [place] [id number] Charisma Zhang, RN [facility] [place] [address] Other specified counseling Social History Tobacco Use [...] Destination countries (list from first to last): [facility] Departure date: Apr 13 Length of trip: 3 weeks Purpose of travel: spriitiual [place] of environment[place] Accommodations: Guest house Medical History: Medical problems: Patient Active Problem List Diagnosis Code ??? Pulmonary embolism, unprovoked I26.99 ??? Pericardial effusion I31.3 ??? Hypertension I10 ??? GERD (gastroesophageal reflux disease) K21.9 ??? Hyperlipidemia E78.5 ??? Squamous cell carcinoma [id number] ??? History of SCC (squamous cell carcinoma) [...] AM EDT TH Visit (TeleHealth) [place] [address] lOga Melgar APRN [facility] [place] [address] documented as of this encounter Visit Diagnoses Diagnosis Other specified counseling documented in this encounter Care Teams Referral Nurse Relationship Specialty Start Date End Date Candie Skaggs MD [address] [place] [address] PCP - General Family Medicine 03/19/19 documented as of this encounter
--- OUTSIDE RECORDS SUMMARY | 2023-10-19 06:21 | XMS_ITS | Encounter Summary ---
Author Organization [facility] [place] [address] Care Team Providers Care Health Assessment And Treatment Teacher Name Role Phone Candie Skaggs MD Primary Care Provider [phone] Encounter Details Date Type Department Care Team (Late st Contact Info) Description 05/22/2021 Telephone Dermatology at [facility] [address] [place] [id number] Geovanni Champagne MD [facility] [address] [place] [address] Social History Tobacco Use Types Packs/Day Years [...] with other providers, but no. Please call [phone]. Thank you, Maye documented in this encounter Plan of Treatment Upcoming Encounters Date Type Department Care Team (Late st Contact Info) Description 10/27/2023 10:00 AM EDT TH Visit (TeleHealth) [place] [address] Ogla Melgar APRN [facility] [place] [address] documented as of this encounter Visit Diagnoses Not on filedocumented in this encounter Care Teams Health Assessment And Treatment Teacher Relationship Specialty Start Date End Date Candie Skaggs MD [address] [place] [address] PCP - General Family Medicine 03/19/19 documented as of this encounter
--- OUTSIDE RECORDS SUMMARY | 2023-10-19 06:21 | XMS_ITS | Encounter Summary ---
Author Organization [facility] [place] [address] Care Team Providers Care Drywall Sander Name Role Phone Candie Skaggs MD Primary Care Provider Encounter Details Date Type Department Care Team (Late st Contact Info) Description 12/18/2020 Ancillary Procedure [place] [address] Candie Skaggs MD [address] [address] Social History Tobacco Use Types Packs/Day Years [...] AM EDT TH Visit (TeleHealth) [place] [address] Olga Melgar APRN [facility] [place] [address] documented as of this encounter Procedures Procedure Name Priority Date/Time Associated Diagnosis Comments FILM LIBRARY STORAGE ONLY DX HIP Routine 12/18/2020 12:00 AM EDT documented in this encounter Results * Film Library- Storage Only DX Hip (12/18/2020 12:00 AM EDT) Narrative [facility] - 03/08/2022 1:57 PM EST This exam is auto-finalizing. It's purpose is for storage only. Candie Skaggs MD IMG FILM LIBRARY ORD ERABLES [place], [place] documented in this encounter Visit Diagnoses Not on filedocumented in this encounter Care Teams Drywall Sander Relationship Specialty Start Date End Date Candie Skaggs MD [address] [place] [address] PCP - General Family Medicine 03/19/19 documented as of this encounter
--- OUTSIDE RECORDS SUMMARY | 2023-10-19 06:21 | XMS_ITS | Encounter Summary ---
Author Organization [facility] [place] [address] Care Team Providers Care Patient Navigator Name Role Phone Kumar Schultz MD Primary Care Provider [phone] Reason for Referral * Consultation (Routine) - Authorized Specialty Diagnoses / Procedures Referred By Contac t Referred To Contact Nutrition / Internal Medicine Diagnoses Upper abdominal [place] [address] [address] Referral ID Status Reason Start Date Expiration Date Visits Requested Visits Authorized [id number] Authorized Consult, Test & Treat 10/13/2023 10/12/2024 1 1 Reason for Visit * Reason Comments Abdominal Pain Fatigue * Auth/Cert (Routine) Specialty Diagnoses / Procedures Referred By Contac t Referred To Contact Diagnoses Upper abdominal pain Hypertensive [place] [address] [facility] [place] Referral ID Status Reason Start Date Expiration Date Visits Re quested Visits Authorized [id number] 1 1 Encounter Details Date Type Department Care Team (Latest Contact Info) Description 10/11/2023 1:39 PM EDT - 10/13/2023 4:00 PM EDT Hospital Encounter Hematology/Oncology Unit Level 1 [place] [address] Karla Faria MD [facility] EM[facility]GENCY MEDICINE [place] [id number] Phani Garcia DO [facility] [place] [address] [place] [address] [place] [address] Upper abdominal pain; Hypertensive urgency Discharge Disposition: Home Social History Tobacco Use Types Packs/Day Years Used Date Smoking Tobacco: Former Cigarettes 0.5 3 Smokeless Tobacco: Former Quit: 06/22/1979 Alcohol Use Standard Drinks/Week Comments Yes 2 (1 standard drink = 0.6 oz pur e alcohol) [facility] Utilities Answer Date Recorded In the past 12 months has e [employer], gas, oil, or water [employer] threatened to shut off services in your [...] were you homeless or living in a intermediate (including now)? No 10/13/2023 DH IPV Inpatient [...] Nelsy Ruffin Patient Age: 87 y.o. Language: [place] Islander Race: White Ethnicity: Not nor Admit date: [...] please contact your inpatient physician through the [facility] Chief Lock Operator . Issues afterhours and on weekends will [...] found to have hypertensive emergency, admitted to [facility] for further management. CT Angiogram Chest Abdomen [...] 10/11/2023 3:44 PM) Result Value WORKSTATION ID [id number] Impression 1. No aortic dissection or acute [...] who have questions please contact the health in home caregiver that requested your imaging first. 10/12 Impression: - Esophagogastric landmarks identified. 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 Biopsied. - Normal stomach. Biopsied. - [...] Covid-19 Vaccine 12/12/2020 Moderna Covid-19 Monovalent 12Yr+ (Regional Operations Manager 100mcg) 04/27/2021 Pneumococcal Polysaccharide (Pneumovax 23) 07/15/2012 TD Adult 02/03/2006 Tdap 07/15/2012 Typhoid Live, Oral 02/03/2006, 10/14/2014 Typhoid, VICP 04/15/2022 Zoster (Zostavax) LIVE 05/08/2009 Discharge Medications: Your Medications New Medications Dose Details amLODIPine 5 mg tablet Commonly known as: Norvasc Take 1 tablet by mouth daily. 5 mg Quantity: 90 tablet Refills: 3 sdwqyhybc-phnqjlmci-rw-mag-sim 131-00-804-40 mg/30 mL Suspension Take 5 mLs by [...] Your Primary Care Provider: Kumar Schultz MD [phone] For questions regarding this document or issues relating to this hospitalization on the Medical Service, please contact your inpatient physician through the [facility] Chief Lock Operator . Issues afterhours and on weekends will [...] the day after the procedure, use an ypgy-cey-xvnzzks spray to numb your throat. Sucking on [...] occurs, please contact your Doctor. Please call [phone] before 8pm Mon-Fri with problems, questions or concerns. If you call after 8pm or on weekends, call the Hospital at [phone] and ask to speak to the Wallpaper Embosser Helper emanations analysis technician and the band saw operator will contact that person for you. When should you call for help? Call [phone] anytime you think you may need emergency [...] any problems. Where can you learn more? [facility] View your After Visit Summary and more online at [email or web address] If you would like to provide feedback about your hospital experience, please call the Office of Patient and Family Relations at . If you have received this After Visit Summary in error, please immediately return it in person to the department, or notify the [facility] Privacy Office by calling toll free at between the hours of 8AM and 5PM to arrange for our retrieval of the documents at no cost to you. Content Version: 12.2 ?? 6638-8711 [employer]. Care instructions adapted under license by [facility]. If you have questions about a medical condition or this instruction, always ask your healthcare professional. [employer] disclaims any warranty or liability for your [...] the day after the procedure, use an pkht-vvt-tahiuke spray to numb your throat. Sucking on [...] occurs, please contact your Doctor. Please call [phone] before 8pm Mon-Fri with problems, questions or concerns. If you call after 8pm or on weekends, call the Hospital at [phone] and ask to speak to the Wallpaper Embosser Helper emanations analysis technician and the band saw operator will contact that person for you. When should you call for help? Call [phone] anytime you think you may need emergency [...] any problems. Where can you learn more? [facility] View your After Visit Summary and more online at [email or web address] If you would like to provide feedback about your hospital experience, please call the Office of Patient and Family Relations at . If you have received this After Visit Summary in error, please immediately return it in person to the department, or notify the [facility] Privacy Office by calling toll free at between the hours of 8AM and 5PM to arrange for our retrieval of the documents at no cost to you. Content Version: 12.2 ?? 2393-9844 [employer]. Care instructions adapted under license by [facility]. If you have questions about a medical condition or this instruction, always ask your healthcare professional. [employer] disclaims any warranty or liability for your [...] encounter Discharge Instructions * Discharge Instructions* Katharina Martin, [facility] - 10/11/2023 7:55 PM EDT Upper GI [...] the day after the procedure, use an dlhf-vgd-eblfqrv spray to numb your throat. Sucking on [...] occurs, please contact your Doctor. Please call [phone] before 8pm Mon-Fri with problems, questions or concerns. If you call after 8pm or on weekends, call the Hospital at [phone] and ask to speak to the Wallpaper Embosser Helper emanations analysis technician and the band saw operator will contact that person for you. When should you call for help? Call [phone] anytime you think you may need emergency [...] any problems. Where can you learn more? [facility] View your After Visit Summary and more online at [email or web address] If you would like to provide feedback about your hospital experience, please call the Office of Patient and Family Relations at . If you have received this After Visit Summary in error, please immediately return it in person to the department, or notify the [facility] Privacy Office by calling toll free at between the hours of 8AM and 5PM to arrange for our retrieval of the documents at no cost to you. Content Version: 12.2 ?? 2266-2659 [employer]. Care instructions adapted under license by [facility]. If you have questions about a medical condition or this instruction, always ask your healthcare professional. [employer] disclaims any warranty or liability for your [...] the day after the procedure, use an poma-fxg-pwfbveg spray to numb your throat. Sucking on [...] occurs, please contact your Doctor. Please call [phone] before 8pm Mon-Fri with problems, questions or concerns. If you call after 8pm or on weekends, call the Hospital at [phone] and ask to speak to the Wallpaper Embosser Helper emanations analysis technician and the band saw operator will contact that person for you. When should you call for help? Call [phone] anytime you think you may need emergency [...] any problems. Where can you learn more? [facility] View your After Visit Summary and more online at [email or web address] If you would like to provide feedback about your hospital experience, please call the Office of Patient and Family Relations at . If you have received this After Visit Summary in error, please immediately return it in person to the department, or notify the [facility] Privacy Office by calling toll free at between the hours of 8AM and 5PM to arrange for our retrieval of the documents at no cost to you. Content Version: 12.2 ?? 7324-8596 [employer]. Care instructions adapted under license by [facility]. If you have questions about a medical condition or this instruction, always ask your healthcare professional. [employer] disclaims any warranty or liability for your [...] Your Primary Care Provider: Kumar Schultz MD [phone] For questions regarding this document or issues relating to this hospitalization on the Medical Service, please contact your inpatient physician through the [facility] Chief Lock Operator . Issues afterhours and on weekends will [...] Continuous Scheduled amLODIPine 5 mg Oral Daily esztngdlz-vmjtsxlvq-yc-mag-sim 5 mL Oral TID rivaroxaban 10 mg [...] of this encounter: 64.4 kg (142 lb). [place] Body Weight (IBW) (kg): 47.73 Wt Readings [...] interview: 10/12: Nutrition consulted for MST evaluation, sba underwriter met with Adriana and her at bedside. Adriana reports epigastric pain and nausea, relying on soup and toast for intake lately. She reports 8# weight loss in recent weeks, though unable to quantify UBW. Unsure what is causing epigastric pain, awaiting EGD results. Offered Ensure to supplement intake, trial sent. Nelsy notes GERD and avoiding spicy foods, tomato sauces, and other foods. Diagnostics Sales Developer also suggested follow up with outpatientRD (consider GI if followed up by GI clinic), pt to reach out to provider. Nutrition Focused Physical Exam: Performed (10/13/23 by HD) . Subcutaneous Fat Loss Orbital region: Mild Upper arm region (triceps/biceps): None present Thoracic and Lumbar regions (ribs, lower back, and maxillary line): Not assessed Lean Muscle Loss [place] region (temporalis muscle): None present Clavicle bone [...] spent >30 minutes (Day of Discharge Code 15461) involved in the final examination of the [...] with a walker or standby assist with RN/UNDERWEAR TRIMMER.Patient will possibly have an EGD on 10/11. Pt. Has been NPO since midnight. Action List NPO since midnight Monitor epigastric discomfort Telemetry IVF EGD today * Valente Bhatt MD - 10/12/2023 11:17 AM EDT Hospital Medicine Attending Daily Progress Note Admit Date: [...] Daily potassium chloride 10 mEq Intravenous Q2H xphjylxhz-eonkwnizq-vh-mag-sim 5 mL Oral BID losartan 100 mg [...] LALITA, BARBARA (98) on 10/11/2023 3:30:54 PM QTCCALC 401 VASCULAR: No results for input(s): VBTEXTRPT in the last 720 hours. IMAGING: Results for orders placed or performed during the hospital encounter of 10/11/23 CT Angiogram Chest Abdomen Pelvis w Contrast (Exam End: 10/11/2023 3:44 PM) Result Value WORKSTATION ID [id number] Impression 1. No aortic dissection or acute [...] who have questions please contact the health in home caregiver that requested your imaging first. R Studies: Assessment: 87 y.o. female with history of HTN, HLD PE on Xarelto, Haque's esophagus, who presents to the ED,reporting a few day hx of worsening epigastric pain with radiation to her back associated with nausea, and inability to tolerate p.o. intake, found to have hypertensive emergency, admitted to [facility] for further management. GI team to take the pt for EGD tomorrow am. NPO at [place]. #NSTEMI likely type II i/s/o hypertensive emergency [...] Disposition: pending course Goals of Care: Team Pager(MD Coverage 09/09): #[phone] PCP: Kumar Schultz MD [phone] Attestation: IPI Certification I certify that I am a [facility] credentialed attending provider with admitting privileges and that the patient meets or has met medical necessity to require an inpatient IPI level of care meeting a minimumof two midnights or is on the [facility] inpatient only procedure list (status C) due [...] room air saturating >90%. Pt. Is sinus argenis on Tele. VS stable.IVF infusing per MAR. Critical K of 3 this morning, notified. IV replacement ordered and infusing per MAR. Action List Potassium replacement Monitor epigastric discomfort [...] disease) K21.9 Hyperlipidemia E78.5 Squamous cell carcinoma [id number] History of SCC (squamous cell carcinoma) of [...] and included in the patient's chart. Benita Mclean PGY-6, Gastroenterology * More Orozco MD - [...] Covid-19 Vaccine 12/12/2020 Moderna Covid-19 Monovalent 12Yr+ (Regional Operations Manager 100mcg) 04/27/2021 Pneumococcal Polysaccharide (Pneumovax 23) 07/15/2012 [...] Negative Leukocytes, Urine Dipstick Negative Negative Specific [place] Urine Automated 1.007 1.005 - 1.030 Appearance, [...] found to have hypertensive emergency, admitted to [facility] for further management. #NSTEMI likely type II [...] Dipstick Negative Leukocytes, Urine Dipstick Negative Specific [place] Urine Automated 1.007 Appearance, Urine Dipstick Clear [...] 10/11/2023 3:44 PM) Result Value WORKSTATION ID [id number] Impression 1. No aortic dissection or acute [...] who have questions please contact the health in home caregiver that requested your imaging first. Assessment/plan: Epigastric pain Will attempt PO trial If pain persists and unable to tolerate PO will request admission Care to oncoming team at shift change. Karla Faria MD 10/12/23 0722 * Carmita Munoz DO - 10/11/2023 2:08 PM EDT ED [...] months and has been seen at hospital xej-px-dprps for evaluation. She was told that she [...] % [10/11/23 1333] O2 Device: RA [10/11/23 133] O2 Flow Rate (L/min): n/a Physical Exam [...] Hemoglobin normal at 12.0. CBC otherwise unremarkable. 1549 EKG shows sinus bradycardia at a rate of 53 bpm. Normal axis and normal intervals. QTc 401. Noobvious ST depressions or elevations. 1620 CTA: 1. No aortic dissection or acute aortic pathology. 2. Scattered mild to moderate atheromatous plaque in the aorta and some branch vessels. 3. Small pericardial effusion. 4. No acute CT findings in the abdomen or pelvis. 5. Colonic diverticulosis. 6. Other incidental findings, as described above. 1653 Second trop 16, delta 1. Third troponin [...] plan were discussed with the patient. Carmita Munoz, Resident 10/12/23 0006 Associated attestation - Karla [...] hourly rounding, room near nurses station * Plan of Care - Erendira Barnhart RN - 10/13/2023 10:53 AM EDT .. OUTCOME EVALUATION NOTE: OUTCOME SUMMARY: A+Ox4. Assessment as documented. Medicated per apr. NPO for EGD today. Resting in between [...] are in agreement with plan. Renae Cooper CMRN [phone] * Initial Assessments - Renae Cooper RN [...] surrogate would be surrogate decision maker per [place] surrogate decision making law. (Only good for 180 days) spouse Geovanni Any patient receiving care in [place] must abide by [place] law. The hierarchy for surrogate decision making [...] (i) The agent with financial power of litigation attorney associate or a conservator appointed in accordance with [...] were you homeless or living in a intermediate (including now)?: No In the past 12 months has the [employer], gas, oil, or water [employer] threatened to shut off services in your [...] Current DME: none Home Address confirmed as: [address] [facility] [address] Social & Family Supports: All names listed below confirmed with patient as current and correct Extended Emergency Contact Information Primary Emergency Contact: LalyGeovanni Wilfred Address: [address] [place] [address] [place] Relation: Spouse Secondary Emergency Contact: Helga [...] Insurance: N/A ; Prescription Coverage: Preferred Pharmacy: [address] [address] [facility] [place] [id number] [place] Status: Patient is a : No Primary Care Provider confirmed: Kumar Schultz MD [phone] Patient/Caregiver Goals of Treatment: return home Potential [...] coordination of care as indicated. Renae Cooper CMRN [id number] * Consult Note - Xavi Monroe MD [...] her on a pantoprazole 20mg and simethicone 10/07, but yesterday, she had worsening epigastric pain and did not feel she could get enough nutrition in, so she presented to the [facility] ED. In the ED, she was afebrile [...] was normal. She last saw GI at [facility] in 2021. Their plan was to put [...] Daily potassium chloride 10 mEq Intravenous Q2H csxlztzxx-wetfyvczr-eh-mag-sim 5 mL Oral BID losartan 100 mg Oral Daily sodium chloride 0.9 % (flush) 5 mL Intravenous BID pantoprazole 40 mg Intravenous BID hydroCHLOROthiazide 12.5 mg Oral Daily Drips: sodium chloride 0.9% with potassium chloride 20 mEq 100 mL/hr (10/11/23 5053) PRN: prochlorperazine OR prochlorperazine, ondansetron, sodium chloride 0.9 % (flush), lidocaine, melatonin Allergies: Allergies Allergen Reactions Codeine Phosphate Nausea And Vomiting OBJECTIVE Vitals: T Temp: [36.2 ??C (97.2 ??F)-36.7 ??C (98.1 ??F)] HR Heart Rate: [50-97] BP BP: (122-214)/(41-98) RR Resp: [10-27] SpO2 SpO2: [94 %-100 %] IO 10/10 0701 - 10/11 0700 In: 500 [...] who have questions please contact the health in home caregiver that requested your imaging first. RECORDS: Obtained [...] proceed. Hailee Almanza MD Gastroenterology attending Pager [phone] * ED Triage - Tex Purcell, RN - 10/11/2023 1:33 PM EDT Reports [...] AM EDT TH Visit (TeleHealth) [place] [address] Olga Melgar HEAD PAPER TESTER [facility] [place] [address] Scheduled Referrals Name Type Priority Associated Diagnoses Orde r Schedule Referral to Nutrition Services Outpatient Referral Routine Upper abdominal pain Ordered: 10/13/2023 documented as of this encounter Procedures Procedure Name Priority Date/Time Associated Diagnosis Comments GIARDIA/CRYPTOSPORID IUM ANTIGENS ([facility]/APD/[facility]) Routine 10/13/2023 3:50 PM EDT ECHO COMPLETE Routine 10/13/2023 12:52 PM EDT Hypertensive urgency SURGICAL PATHOLOGY Routine 10/13/2023 10 :26 AM EDT Upper Gi Endoscopy, Biopsy (09331) 10/13/2023 10:13 AM EDT Wt loss UPPER [...] PM EDT URINALYSIS BEAKER MICROSCPIC REFLEX EXAM ([facility]UAN J) STAT 10/11/2023 2:54 PM EDT URINALYSIS MICROSCOPIC [...] ERAL ORDERABLES [facility] [place] [address] * ECHO COMPLETE (10/13/2023 12:52 PM EDT) EF 65 HEARTLAB SYSTEM Anatomical Region Laterality Modality Cardiac Other 10/13/2023 12:1 4 PM EDT Narrative 10/13/2023 1:18 PM EDT 1 [place] [address] ? Echocardiogram Report Name: NELSY RUFFIN ?Study Date: 10/13/2023 12:14 PMBP: 160/72 mmHg ? Patient Location: L1WD 0118 A : 1935 ? Height: 155 cm ? Account: [id number] Age: 87 yrs ? Weight: 64 kg Gender: Female ?BSA: 1.6 m2 Ordering Physician: MORE OROZCO Performed By: LE Palomares Reason For Study: Hypertensive urgency Exam Location: [facility]. Interpretation Summary 1. 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 Procedure Complete-52073. Satisfactory quality. There is sinus bradycardia. Left [...] Note Eri Patino MD - 10/13/2023 [address] [place] [address] Echocardiogram Report Name: NELSY RUFFIN Study Date: 2:14 PMBP: 160/72 mmHg Patient Location: [address] : 1935 Height: 155 cm Account: [id number] Age: 87 yrs Weight: 64 kg Gender: Female BSA: 1.6 m2 Ordering Physician: MORE OROZCO Performed By: LE Palomares Reason For Study: Hypertensive urgency Exam Location: [facility]. Interpretation Summary 1. 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 Procedure Complete-30325. Satisfactory quality. There is sinus bradycardia. Left [...] Case Report Surgical Pathology Report ? Case: [id number] ? Authorizing Provider: ??Geovanni Bell MD ?Collected: ? 10/13/2023 1026 ? Ordering Location: ? Gastroenterology at [facility] ?? Received: ?10/13/2023 1251 ? Pathologist: ? Judie Ovalle MD ? Specimens: ?? A) - Esophagus, esophagus at 37cm ? B) - Stomach ? C) - Small Bowel, Duodenum ? 10/17/2023 12:27 PM [facility] Final Diagnosis A. Esophagus, esophagus at 37cm Biopsy: Cardia- and fundic-type mucosa with focal intestinal metaplasia, negative for dysplasia (see Discussion). B. Stomach, Biopsy: Gastric fundic and antral gland mucosa with mild chronic nonspecific gastritis. C. Small Bowel, Duodenum, Biopsy: Duodenal mucosa within normal limits, including preserved villous architecture. 10/17/2023 12:27 PM [facility] Discussion A - The findings are compatible with Haque esophagus in the appropriate endoscopic setting. 10/17/2023 12:27 PM [facility] Additional Studies Task ID IHC/Special Stains Result Comments B1-2 H pylori Negative 10/17/2023 12:27 PM [facility] Disclaimer(s) Formalin-fixed, paraffin-embedded tissue sections [...] and other diagnostic tests. 10/17/2023 12:27 PM [facility] Clinical Information A. Esophagus, esophagus at 37cm Rule out Haque's B. Stomach, Rule out Helicobacter pylori C. Small Bowel, Duodenum, Rule out celiac 10/17/2023 12:27 PM [facility] Gross Description A. Esophagus, esophagus [...] PATHOLOGY/CYTOLOGY O RDERABLES [facility] [place] [address] * UPPER GI ENDOSCOPY (10/13/2023 9:44 AM EDT) UPPER GI ENDOSCOPY [facility] Endoscopy ___ Procedure Date: 10/13/2023 9:44 AM ? Patient Name: Nelsy Ruffin ? Date of : 1935 ? Age: 87 ? Order #: [id number] ? Instrument Name: [id number]- [id number] ? ___ Procedure: ? Upper GI endoscopy Indications: ? Chronic dyspepsia and GERD; recent ? 8lb weight loss. Providers: ? Benita Mirza, ? Nickolas Nicolas MD: ?Valente Bhatt Medicines: ? Monitored Anesthesia Care Complications: ? [...] ? classified as Haque's stage C0-M1 per [place] ? criteria present at the gastroesophageal junction. [...] classified as Haque's stage C0-M1 ? per [place] criteria. Biopsied. ? - Normal stomach. Biopsied. [...] repeat EGD in 3-5 years for ? Ahque's. ? Attending Participation: ? I was present and participated during the entire ? procedure from insertion to removal of the endoscope. ? Geovanni Eliasley Geovanni Maciel Ray, 10/13/2023 10:56:41 AM Number of Addenda: 0 Note Initiated On: 10/13/2023 9:44 AM [employer]ATION 10/13/2023 9:44 AM EDT Valente Bhatt MD GENERAL SURGICAL O RDERABLES [employer]ATION * Magnesium (10/13/2023 4:07 AM EDT) Magnesium 0.76 0.69 - 1.07 mMol/L 10/13/2023 4:55 AM EDT [facility] Blood VENOUS BLOOD SPECIMEN / Unknown IP Care Team Draw / Unknown 10/13/2023 4:07 AM EDT 10/13/2023 4:23 AM EDT More Orozco MD CHEMISTRY ORDERABLES Performing Organization Address City/[facility]/ZIP Co de Phone Number [facility] [place] [address] * (ABNORMAL) Basic Metabolic Panel (10/13/2023 4:07 AM EDT) Glucose 115 65 - 199 mg/dL 10/13/2023 4:55 AM EDT [facility] Comment:Glucose Concentratio n >=200 mg/dL plus symptoms is consistent with Diabetes Mellitus. Blood Urea Nitrogen 10 8 - 18 mg/dL 10/13/2023 4:55 AM EDT [facility] [facility] Creatinine 0.95 0.70 - 1.20 mg/dL 10/13/2023 4:55 AM EDT [facility] Sodium 142 135 - 145 mMol/L 10/13/2023 4:55 AM EDT [facility] Potassium 3.2(L) 3.5 - 5.0 mMol/L 10/13/2023 4:55 AM EDT [facility] Chloride 109(H) 98 - 107 mMol/L 10/13/2023 4:55 AM EDT [facility] Carbon Dioxide 20(L) 22 - 31 mMol/L 10/13/2023 4:55 AM EDT [facility] Anion Gap 13 5 - 15 mMol/L 10/13/2023 4:55 AM EDT [facility] Calcium 9.3 8.5 - 10.5 mg/dL 10/13/2023 4:55 AM EDT [facility] Est Glomerular Filtration Rate - Female 58 mL/min/1. 73 m?? 10/13/2023 4:55 AM EDT [facility] Comment: [...] MD CHEMISTRY ORDERABLES [facility] [place] [address] * (ABNORMAL) CBC (with Diff) (10/13/2023 4:07 AM EDT) White Blood Cell 6.31 4.00 - 9.50 x10(3)/mc L 10/13/2023 4:30 AM EDT [facility] Red Blood Cell 3.68(L) 4.00 - 5.21 x10(6)/mc L 10/13/2023 4:30 AM [facility] Hemoglobin 11.8 11.7 - 15.5 g/dL 10/13/2023 4:30 AM [facility] Hematocrit 34.6(L) 35.7 - 45.8 % 10/13/2023 4:30 AM [facility] Mean Cell Volume 94.0 82.6 - 94.4 fL 10/13/2023 4:30 AM [facility] Mean Cell Hemoglobin 32.1(H) 27.1 - 32.0 pg 10/13/2023 4:30 AM [facility] Mean Cell Hemoglobin Concentration 34.1 31.7 - 35.0 g/dL 10/13/2023 4:30 AM [facility] Platelet 240 145 - 357 x10(3)/mc L 10/13/2023 4:30 AM [facility] Mean Platelet Volume 10.3 7.6 - 12.9 fL 10/13/2023 4:30 AM [facility] RDW Standard Deviation 43.8 37.0 - 46.0 fL 10/13/2023 4:30 AM [facility] RDW coefficient of variation 12.8 11.5 - 14.1 % 10/13/2023 4:30 AM [facility] NRBC% auto 0.0 % 10/13/2023 4:30 AM [facility] NRBC Absolute 0.00 0.00 - 0.00 x10(3)/mc L 10/13/2023 4:30 AM [facility] Neutrophil % 65.4 % 10/13/2023 4:30 AM [facility] Neutrophil Absolute (ANC) - Automated 4.13 1.70 - 6.10 x10(3)/mc L 10/13/2023 4:30 AM [facility] Lymph % 26.1 % 10/13/2023 4:30 AM [facility] Lymph Absolute 1.65 0.90 - 3.20 x10(3)/mc L 10/13/2023 4:30 AM EDT [facility] Monocyte % 6.2 % 10/13/2023 4:30 AM EDT [facility] Monocyte Absolute 0.39 0.30 - 0.90 x10(3)/mc L 10/13/2023 4:30 AM EDT [facility] Eos % 1.6 % 10/13/2023 4:30 AM EDT [facility] Eos Absolute 0.10 0.00 - 0.40 x10(3)/mc L 10/13/2023 4:30 AM EDT [facility] Basophil % 0.5 % 10/13/2023 4:30 AM EDT [facility] Baso Absolute 0.03 0.00 - 0.10 x10(3)/mc L 10/13/2023 4:30 AM EDT [facility] Immature Gran % 0.2 % 4:30 AM EDT [facility] Immature Gran Absolute 0.01 0.00 - 0.04 x10(3)/mc L 10/13/2023 4:30 AM EDT [facility] Blood VENOUS BLOOD SPECIMEN / Unknown IP Care Team Draw / Unknown 10/13/2023 4:07 AM EDT 10/13/2023 4:23 AM EDT More Orozco MD HEMATOLOGY ORDERABLE S [facility] [place] [address] * Magnesium (10/12/2023 5:09 AM EDT) Magnesium 0.78 0.69 - 1.07 mMol/L 10/12/2023 5:46 AM EDT [facility] Blood VENOUS BLOOD SPECIMEN / Unknown IP Care Team Draw / Unknown 10/12/2023 5:09 AM EDT 10/12/2023 5:17 AM EDT More Orozco MD CHEMISTRY ORDERABLES [facility] [place] [address] * (ABNORMAL) Basic Metabolic Panel (10/12/2023 5:09 AM EDT) Glucose 104 65 - 199 mg/dL 10/12/2023 6:08 AM EDT [facility] Comment:Glucose Concentratio n >=200 mg/dL plus symptoms is consistent with Diabetes Mellitus. Blood Urea Nitrogen 12 8 - 18 mg/dL 10/12/2023 6:08 AM T [facility] Creatinine 0.91 0.70 - 1.20 mg/dL 10/12/2023 6:08 AM [facility] Sodium 143 135 - 145 mMol/L 10/12/2023 6:08 AM [facility] Potassium 3.0(LLL) 3.5 - 5.0 mMol/L 10/12/2023 6:08 AM [facility] Chloride 109(H) 98 - 107 mMol/L 10/12/2023 6:08 AM [facility] Carbon Dioxide 23 22 - 31 mMol/L 10/12/2023 6:08 AM [facility] Anion Gap 11 5 - 15 mMol/L 10/12/2023 6:08 AM [facility] Calcium 9.1 8.5 - 10.5 mg/dL 10/12/2023 6:08 AM [facility] Est Glomerular Filtration Rate - Female 61 mL/min/1. 73 m?? 10/12[facility]2023 6[facility]: This patient's estimated [...] MD CHEMISTRY ORDERABLES [facility] [place] [address] * (ABNORMAL) CBC (with Diff) (10/12/2023 5:09 AM EDT) White Blood Cell 5.10 4.00 - 9.50 x10(3)/mc L 10/12/2023 5:21 AM EDT [facility] Red Blood Cell 3.51(L) 4.00 - 5.21 x10(6)/mc L 10/12/2023 5:21 AM [facility] Hemoglobin 11.3(L) 11.7 - 15.5 g/dL 10/12/2023 5:21 AM [facility] Hematocrit 33.2(L) 35.7 - 45.8 % 10/12/2023 5:21 AM EDT [facility] Mean Cell Volume 94.6(H) 82.6 - 94.4 fL 10/12/2023 5:21 AM [facility] Mean Cell Hemoglobin 32.2(H) 27.1 - 32.0 pg 10/12/2023 5:21 AM [facility] Mean Cell Hemoglobin Concentration 34.0 31.7 - 35.0 g/dL 10/12/2023 5:21 AM [facility] Platelet 229 145 - 357 x10(3)/mc L 10/12/2023 5:[facility] Mean Platelet Volume 10.2 7.6 - 12.9 fL 10/12/2023 5:21 AM [facility] RDW Standard Deviation 43.5 37.0 - 46.0 fL 10/12/2023 5:21 AM [facility] RDW coefficient of variation 12.7 11.5 - 14.1 % 10/12/2023 5:21 AM [facility] NRBC% auto 0.0 % 10/12/2023 5:21 AM [facility] NRBC Absolute 0.00 0.00 - 0.00 x10(3)/mc L 10/12/2023 5:21 AM [facility] Neutrophil % 54.2 % 10/12/2023 5:21 AM [facility] Neutrophil Absolute (ANC) - Automated 2.77 1.70 - 6.10 x10(3)/mc L 10/12/2023 5:21 AM [facility] Lymph % 35.9 % 10/12/2023 5:21 AM [facility] Lymph Absolute 1.83 0.90 - 3.20 x10(3)/mc L 10/12/2023 5:21 AM [facility] Monocyte % 7.3 % 10/12/2023 5:21 AM [facility] Monocyte Absolute 0.37 0.30 - 0.90 x10(3)/mc L 10/12/2023 5:21 AM [facility] Eos % 1.8 % 10/12/2023 5:21 AM [facility] Eos Absolute 0.09 0.00 - 0.40 x10(3)/mc L 10/12/2023 5:21 AM [facility] Basophil % 0.6 % 10/12/2023 5:21 AM [facility] Baso Absolute 0.03 0.00 - [...] HEMATOLOGY ORDERABLE S [facility] [place] [address] * (ABNORMAL) Hepatic Function Panel (10/12/2023 5:09 [...] MD CHEMISTRY ORDERABLES [facility] [place] [address] * Phosphorus (10/12/2023 5:09 AM EDT) Phosphorus 3.4 2.5 - 4.5 mg/dL 10/12/2023 5:46 AM EDT [facility] Blood VENOUS BLOOD SPECIMEN / Unknown IP Care Team Draw / Unknown 10/12/2023 5:09 AM EDT 10/12/2023 5:17 AM EDT More Orozco MD CHEMISTRY ORDERABLES Performing Organization Address City/[facility]/ZIP Co de Phone Number [facility] [place] [address] * TSH (10/11/2023 6:17 PM EDT) Thyroid [...] Orozco MD CHEMISTRY ORDERABLES Performing Organization Address City/[facility]/ZIP Co de Phone Number [facility] [place] [address] * Lipase (10/11/2023 6:17 PM EDT) Lipase 29 0 - 60 unit/L 10/12/2023 1:15 AM EDT [facility] Blood VENOUS BLOOD SPECIMEN / Unknown IP Care Team Draw / Unknown 10/11/2023 6:17 PM EDT 10/11/2023 6:23 PM EDT More Orozco MD CHEMISTRY ORDERABLES [facility] [place] [address] * (ABNORMAL) Troponin-T, Joseph Sensitivity 3 Hour (10/11/2023 6:17 PM EDT) Pathologist [facility] Troponin-T, High Sensitivity 15(H) <=14 ng/L 10/11/2023 [...] troponin value can be found in the [facility] Laboratory Test Catalog Troponin - [email or web address]/catalogs/565/files/[email or web address] Reference: Fourth [place] Definition of Myocardial Infarction. Journal of the [place] [employer] 2018;72:9573-4179 Troponin-T, HS 3 hr delta 2 ng/L [...] MD CHEMISTRY ORDERABLES [facility] [place] [address] * (ABNORMAL) Troponin-T, High Sensitivity 1 Hour (10/11/2023 3:59 PM EDT) Pathologist [facility] Troponin-T, High Sensitivity 16(H) <=14 ng/L 10/11/2023 [...] troponin value can be found in the [facility] Test Catalog Troponin - [email or web address]/565/files/85095 Reference: Fourth [place] Definition of Myocardial Infarction. Journal of the [place] [employer] 2018;72:3340-0256 Troponin-T, HS 1 hr delta 1 ng/L [...] EDT Karla Faria MD CHEMISTRY ORDERABLES [facility] [address] * CT Angiogram Chest Abdomen Pelvis w Contrast (10/11/2023 3:44 PM EDT) WORKSTATION ID [id number] RAD Anatomical Region Laterality Modality Abdomen, Chest [...] who have questions please contact the health in home caregiver that requested your imaging first. ? Narrative [...] and of normal caliber. No dissection. Scattered [id number] atheromatous plaque is noted. Celiac: Patent. No [...] and of normal caliber. No dissection. Scattered [id number] atheromatous plaque is noted. Celiac: Patent. No [...] patients who have questions please contactthe health in home caregiver that requested your imaging first. Karla Faria MD IM CT ORDERABLES * (ABNORMAL) Hemoglobin A1c (10/11/2023 [...] red blood cell turnover may not be client care representative of glycemic control. Reference Interval: 4.3 - 5.6% 5.7 - 6.4%: Consistent with prediabetes >=6.5%: Consistent with diagnosis of diabetes mellitus Estimated Average Glucose 10/12/2023 1:06 AM EDT [facility] Comment:Not Calculated. Blood VENOUS BLOOD SPECIMEN / Unknown Venipuncture / Unknown 10/11/2023 3:01 PM EDT 10/11/2023 3:09 PM EDT [facility] [place] [facility] - 10/12/2023 1:06 AM EDT Estimated average glucose (eAG) is calculated from the equation described in: Malvin HERNANDEZ, Jamal J, Janina R, et al. ??Translating the A1C assay into estimated average glucose values. ??Diabetes Care 2008:31(8):1087-1462. Additional resources are available on the ADA website (diabetes.org). More Orozco MD CHEMISTRY ORDERABLES [facility] [place] [address] * (ABNORMAL) Troponin-T, High Sensitivity (10/11/2023 3:01 PM EDT) [facility] Troponin-T, High Sensitivity Initial 17(H) <=14 ng/L [...] troponin value can be found in the [facility] Test Catalog Troponin - https://[email or web address].org/catalogs/565/files/36919 Reference: Fourth [place] Definition of Myocardial Infarction. Journal of the [place] [employer] 2018;72:6773-3640 Blood VENOUS BLOOD SPECIMEN / Unknown Venipuncture / Unknown 10/11/2023 3:01 PM EDT 10/11/2023 3:09 PM EDT Karla Faria MD CHEMISTRY ORDERABLES Performing Organization Address [facility]/ZIP Co de Phone Number [facility] [place] [address] * Lipase (10/11/2023 3:01 PM EDT) Lipase 35 0 - 60 unit/L 10/11/2023 3:53 PM EDT [facility] Blood VENOUS BLOOD SPECIMEN / Unknown Venipuncture / Unknown 10/11/2023 3:01 PM EDT 10/11/2023 3:09 PM EDT Karla Faria MD CHEMISTRY ORDERABLES Performing Organization Address [facility] Co de Phone Number [facility] [place] [address] * Hepatic Function Panel (10/11/2023 3:01 PM [...] MD CHEMISTRY ORDERABLES [facility] [place] [address] * (ABNORMAL) Basic Metabolic Panel (10/11/2023 3:01 PM EDT) Glucose 105 65 - 199 mg/dL 10/11/2023 3:53 PM EDT [facility] Comment:Glucose Concentratio n >=200 mg/dL plus symptoms is consistent with Diabetes Mellitus. Blood Urea Nitrogen 14 8 - 18 mg/dL 10/11/2023 3:53 PM EDT [facility] Creatinine 0.91 0.70 - 1.20 mg/dL 10/11/2023 3:53 PM EDT [facility] Sodium 144 135 - 145 mMol/L 10/11/2023 3:53 PM EDT [facility] Potassium 3.1(L) 3.5 - 5.0 mMol/L 10/11/2023 3:53 PM EDT [facility] Chloride 107 98 - 107 mMol/L 10/11/2023 3:53 PM EDT [facility] Carbon Dioxide 23 22 - 31 mMol/L 10/11/2023 3:53 PM EDT [facility] Anion Gap 14 5 - 15 mMol/L 10/11/2023 3:53 PM EDT [facility] Calcium 9.9 8.5 - 10.5 mg/dL 10/11/2023 3:53 PM EDT [facility] Est Glomerular Filtration Rate - Female 61 mL/min/1. 73 m?? 10/11/2023 3:53 PM EDT [facility] MD CHEMISTRY ORDERABLES [facility] [place] [address] * (ABNORMAL) CBC (with Diff) (10/11/2023 3:01 PM EDT) White Blood Cell 6.04 4.00 - 9.50 x10(3)/mc L 10/11/2023 3:28 PM EDT [facility] Red Blood Cell 3.72(L) 4.00 - 5.21 x10(6)/mc L 10/11/2023 3:28 PM EDT [facility] Hemoglobin 12.0 11.7 - 15.5 g/dL 10/11/2023 3:28 PM EDT [facility] Hematocrit 34.5(L) 35.7 - 45.8 % 10/11/2023 3:28 PM [facility] Mean Cell Volume 92.7 82.6 - 94.4 fL 10/11/2023 3:28 PM [facility] Mean Cell Hemoglobin 32.3(H) 27.1 - 32.0 pg 10/11/2023 3:28 PM [facility] Mean Cell Hemoglobin Concentration 34.8 31.7 - 35.0 g/dL 10/11/2023 3:28 PM [facility] Platelet 246 145 - 357 x10(3)/mc L 10/11/2023 3:28 PM [facility] Mean Platelet Volume 10.3 7.6 - 12.9 fL 10/11/2023 3:28 PM [facility] RDW Standard Deviation 43.2 37.0 - 46.0 fL 10/11/2023 3:28 PM [facility] RDW coefficient of variation 12.6 11.5 - 14.1 % 10/11/2023 3:28 PM [facility] NRBC% auto 0.0 % 10/11/2023 3:28 PM [facility] NRBC Absolute 0.00 0.00 - 0.00 x10(3)/mc L 10/11/2023 3:28 PM [facility] Neutrophil % 67.7 % 10/11/2023 3:28 PM [facility] Neutrophil Absolute (ANC) - Automated 4.09 1.70 - 6.10 x10(3)/mc L 10/11/2023 3:28 PM [facility] Lymph % 25.5 % 10/11/2023 3:28 PM [facility] Lymph Absolute 1.54 0.90 - 3.20 x10(3)/mc L 10/11/2023 3:28 PM [facility] Monocyte % 5.6 % 10/11/2023 3:28 PM [facility] Monocyte Absolute 0.34 0.30 - [...] HEMATOLOGY ORDERABLE S [facility] [place] [address] * (ABNORMAL) Urinalysis Microscopic Reflex to Culture [...] Faria MD URINE ORDERABLES Performing Organization Address [facility] Co de Phone Number [facility] [place] [address] * Urinalysis Microscopic with Reflex to Culture (10/11/2023 2:54 PM EDT) Urine URINE SPECIMEN OBTAINED BY CLEAN CATCH PROCEDURE / Unknown Non Blood Collection / Unknown 10/11/2023 2:54 PM EDT 10/11/2023 3:09 PM EDT Karla Faria MD URINE ORDERABLES Performing Organization Address [facility] Co de Phone Number [facility] [place] [address] * (ABNORMAL) Urinalysis with reflex Culture (10/11/2023 [...] 3:52 PM EDT [facility] Specific [place] Urine Automated 1.007 1.005 - 1.030 10/11/2023 [...] MD URINE ORDERABLES [facility] [place] [address] * EKG 12 Lead (10/11/2023 2:49 PM EDT) Ventricular rate 53 BPM MUSE SYSTEM Atrial Rate 53 BPM MUSE SYSTEM P-R Interval 176 ms MUSE SYSTEM QRS Duration 70 ms MUSE SYSTEM Q-T Interval 428 ms MUSE SYSTEM QTC Calculated (Bezet) 401 ms MUSE SYSTEM Calculated P Palmer 65 degrees MUSE SYSTEM Calculated R Palmer 6 degrees MUSE SYSTEM Calculated T Palmer 51 degrees MUSE SYSTEM INTERPRETATION Sinus bradycardia [...] Karla Faria MD ECG ORDERABLES MUSE SYSTEM documented in this encounter Visit Diagnoses Diagnosis Hypertensive urgency- Primary Unspecified essential hypertension Upper abdominal pain Abdominal pain, other specified site Hypertensive urgency Unspecified essential hypertension documented in this encounter Admitting Diagnoses Diagnosis Hypertensive urgency Unspecified essential hypertension documented in this encounter Administered Medications Inactive Administered Medications - up to 3 most recent administrations Medication Order MAR Action Action Date Dose Rate Site alum-mag hydroxide-simeth (Maalox) (40 mg-40 mg-4 mg/mL) oral liquid 10 mL 10 mL, Oral, ONCE, 1 dose, On Fri10/13/23 at 0100, STAT Given 10/13/2023 12:51 AM EDT 10 mLs amLODIPine (Norvasc) tablet 5 mg 5 mg, Oral, DAILY, First dose on Fri10/13/23 at 0700, Until Discontinued, Routine Given 10/13/2023 2:51 PM EDT 5 mg diphenhydrAMINE/aluminum-magnesiu m hydroxide with simethicone/lidocaine (BMX) (6.67 mg-0.83 mg-13.33 mg-1.33 mg/mL) oral liquid 5 mL 5 mL, Oral, 2 TIMES DAILY, First dose on Fri10/11/23 at 1450, Until Discontinued, Each 5 mL contains equal parts of diphenhydramine (BENADYL), aluminum-magnesium hydroxide w/ simethicone (MAALOX), and lidocaine (XYLOCAINE), Routine Given 10/12/2023 9:17 AM EDT 5 mLs Given 10/11/2023 2:54 PM EDT 5 mLs diphenhydrAMINE/aluminum-magnesium hydroxide with simethicone/lidocaine (BMX) (6.67 mg-0.83 mg-13.33 mg-1.33 mg/mL) oral liquid 5 mL 5 mL, Oral, 3 TIMES DAILY, First dose (after last modification) on Fri10/13/23 at 1500, Until Discontinued, Each 5 mL contains equal parts of diphenhydramine (BENADYL), aluminum-magnesium hydroxide w/ simethicone (MAALOX), and lidocaine (XYLOCAINE), Routine famotidine (Pepcid) (10 mg/mL) injection 20 mg 20 mg, Intravenous, ONCE, 1 dose, On 10/12/23 at 0040 Given 10/12/2023 2:01 AM EDT 20 mg famotidine (Pepcid) (10 mg/mL) injection 20 mg 20 mg, Intravenous, ONCE, 1 dose, On 10/13/23 at 0100 Given 10/13/2023 12:56 AM EDT 20 mg hydrALAZINE (Apresoline) (20 mg/mL) injection 5 mg 5 mg, Intravenous, ONCE, 1 dose, On 10/13/23 at 0115 Given 10/13/2023 12:51 AM EDT 5 mg hydrALAZINE (Apresoline) (20 mg/mL) injection 5 mg 5 mg, Intravenous, EVERY 6 HOURS PRN, Starting on 10/13/23 at 0629, Until 10/13/23 at 1957, High Blood Pressure, for SBP > 170 hydroCHLOROthiazide (HydroDiuril) tablet 12.5 mg 12.5 mg, Oral, DAILY, First dose on 10/11/23 at 2345, Until Discontinued, Routine Given 10/13/2023 2:51 PM EDT 12.5 mg Given 10/12/2023 9:18 AM EDT 12.5 mg iohexoL (Omnipaque) (350 mg/mL) solution 0-200 mL 0-200 mL, Intravenous, ONCE PRN, 1 dose, Starting on 10/11/23 at 1537, Until 10/11/23 at 1537, Per Protocol, Warning Vesicant/Irritant Medication , Radiology Contrast, Routine Given 10/11/2023 3:37 PM EDT 65 mLs lactated Ringers 500 mL IV bolus Intravenous, ONCE, 1 dose, On 10/11/23 at 2150 New Bag 10/11/2023 10:00 PM EDT 500 mL/hr losartan (Cozaar) tablet 100 mg 100 mg, Oral, DAILY, First dose on 10/12/23 at 0900, Until Discontinued, Routine Given 10/13/2023 2:51 PM EDT 100 mg Given 10/12/2023 9:17 AM EDT 100 mg ondansetron (pf) (Zofran) (2 mg/mL) injection 4 mg 4 mg, Intravenous, EVERY 8 HOURS PRN, 3 doses, Starting on 10/11/23 at 2323, Until 10/12/23 at 0452, Nausea Given 10/11/2023 11:43 PM EDT 4 mg ondansetron (pf) (Zofran) (2 mg/mL) injection [...] Given 10/12/2023 9:17 AM EDT 40 mg potassium chloride 10 mEq in sterile water 100 mL infusion 10 mEq, Intravenous, EVERY 2 HOURS, 3 doses, First dose on 10/12/23 at 0645, Last dose on 10/12/23 at 1045, Administer over 60 Minutes, Doses of 20 mEq or greater require a Central Line Warning Vesicant/Irritant Medication New Bag 10/12/2023 11:18 AM EDT 10 mEq 100 mL/hr New Bag 10/12/2023 9:02 AM EDT 10 mEq 100 mL/hr New Bag 10/12/2023 6:47 AM EDT 10 mEq 100 mL/hr prochlorperazine (Compazine) (5 mg/mL) injection 10 mg 10 mg, Intravenous, EVERY 6 HOURS PRN, Starting on 10/12/23 at 0450, Until 10/13/23 at 1957, Nausea, Vomiting, Use ondansetron first line and if ineffective use prochlorperazine second line., Routine prochlorperazine (Compazine) tablet 10 mg 10 mg, Oral, EVERY 6 HOURS PRN, Starting on 10/12/23 at 0450, Until 10/13/23 at 1957, Nausea, Use ondansetron [...] Given 10/12/2023 9:17 AM EDT 5 mLs sodium chloride 0.9% with potassium chloride 20 mEq infusion 100 mL/hr, Intravenous, CONTINUOUS, Starting on 10/11/23 at 2335, Until 10/12/23 at 1434 New Bag 10/12/2023 9:02 AM EDT 100 mL/hr 100 mL/hr New Bag 10/11/2023 11:43 PM EDT 100 mL/hr 100 mL/hr documented in this encounter Active and Recently Administered Medications Times are shown in EDT. Scheduled Medication Order 10/11/2023 10/12/2023 10/13/2023 alum-mag hydroxide-simeth (Maalox) (40 mg-40 mg-4 mg/mL) oral liquid 10 mL (COMPLETED) 10 mL, Oral, ONCE, 1 dose, On Fri10/13/23 at 0100, STAT 0051 (Given - Provider: Patricia Jj, RN) amLODIPine (Norvasc) tablet 5 mg 5 mg, Oral, DAILY, First dose on Fri10/13/23 at 0700, Until Discontinued, Routine 0957 ([facility] Hold - Provider: Admin Adt - Reason: Transfer to a Procedural area)1132 ([facility] Unhold - Provider: Admin Adt)1451 (Given - Provider: Erendira Barnhart, LINDEN) diphenhydrAMINE/aluminum- magnesium hydroxide with simethicone/lidocaine (BMX) (6.67 [...] - Reason: Transfer to a Procedural area)0957 ([facility] Hold - Provider: Admin Adt - Reason: Transfer to a Procedural area)1132 ([facility] Unhold - Provider: Admin Adt) diphenhydrAMINE/aluminum- magnesium [...] at 0100 0056 (Given - Provider: Patricia Jj, LINDEN) hydrALAZINE (Apresoline) (20 mg/mL) injection 5 mg (COMPLETED) 5 mg, Intravenous, ONCE, 1 dose, On Fri10/13/23 at 0115 0051 (Given - Provider: Patricia Jj, LINDEN) hydroCHLOROthiazide (HydroDiuril) tablet 12.5 mg 12.5 mg, Oral, DAILY, First dose on 10/11/23 at 2345, Until Discontinued, Routine 0918 (Given - Provider: Jennifer Zhou, LINDEN) 0957 ([facility] Hold - Provider: Admin Adt - Reason: Transfer to a Procedural area)1132 ([facility] Unhold - Provider: Admin Adt)1451 (Given - Provider: Erendira Barnhart, LINDEN) lactated Ringers 500 mL IV bolus (COMPLETED) Intravenous, ONCE, 1 dose, On Fri10/11/23 at 2150 2200 (New Bag - Provider: Perlita Milian, LINDEN)2257 (Stopped - Provider: Perlita Milian, LINDEN) LORazepam (Ativan) (2 mg/mL) injection syringe 0.5 mg 0.5 mg, Intravenous, ONCE, 1 dose, On Fri10/13/23 at 0215, Routine 0400 (Not Given - Provider: Elza Wagner RN - Reason: Patient/family refused)0957 ([facility] Hold - Provider: Admin Adt - Reason: Transfer to a Procedural area)1132 ([facility] Unhold - Provider: Admin Adt) losartan (Cozaar) tablet 100 mg 100 mg, Oral, DAILY, First dose on Fri10/12/23 at 0900, Until Discontinued, Routine 0917 (Given - Provider: Jennifer Zhou, LINDEN) 0957 ([facility] Hold - Provider: Admin Adt - Reason: Transfer to a Procedural area)1132 ([facility] Unhold - Provider: Admin Adt)1451 (Given - Provider: Erendira Barnhart, LINDEN) pantoprazole (Protonix) injection 40 mg 40 mg, Intravenous, 2 TIMES DAILY, First dose on Fri10/11/23 at 2335, Until Discontinued, Reconstitute with 10 [...] Jennifer Zhou RN)1115 (Stopped - Provider: Skye Stout RN)1118 (New Bag - Provider: Skye Stout, LINDEN)1222 (Stopped - Provider: Skye Stout RN) rivaroxaban (Xarelto) tablet 10 mg 10 [...] 2352 (Given - Provider: Perlita Milian RN) 09 (Given - Provider: Jennifer Zhou RN)2025 (Given - Provider: Patricia Jj RN) 0957 ([facility] Hold - Provider: Admin Adt - Reason: Transfer to a Procedural area)1132 ([facility] Unhold - Provider: Admin Adt)1452 (Given - Provider: Erendira Barnhart RN) Continuous Medication Order 10/11/2023 10/12/2023 10/13/2023 sodium chloride 0.9% with potassium chloride 20 mEq infusion () 100 mL/hr, Intravenous, CONTINUOUS, Starting on 10/11/23 at 2335, Until 10/12/23 at 1434 2343 (New Bag - Provider: Perlita Milian, LINDEN) 09 (New Bag - Provider: Jennifer Zhou RN)1943 (Stopped - Provider: Patricia Jj RN) PRN Medication Order 10/11/2023 10/12/2023 10/13/2023 hydrALAZINE (Apresoline) (20 mg/mL) injection 5 mg 5 mg, Intravenous, EVERY 6 HOURS PRN, Starting on 10/13/23 at 0629, Until 10/13/23 at 1957, High Blood Pressure, for SBP > 170 0957 ([facility] Hold - Provider: Admin Adt - Reason: Transfer to a Procedural area)1132 ([facility] Unhold - Provider: Admin Adt) iohexoL (Omnipaque) [...] for discomfort with PIV insertion, Routine 0957 ([facility] Hold - Provider: Admin Adt - Reason: Transfer to a Procedural area)1132 ([facility] Unhold - Provider: Admin Adt) melatonin tablet 3 mg 3 mg, Oral, NIGHTLY PRN, Starting on 10/11/23 at 2327, Until 10/13/23 at 1957, Sleep, Sleep, Routine 09 ([facility] Hold - Provider: Admin Adt - Reason: Transfer to a Procedural area)1132 ([facility] Unhold - Provider: Admin Adt) ondansetron (pf) (Zofran) (2 mg/mL) injection 4 mg (CANCELED) 4 mg, Intravenous, EVERY 8 HOURS PRN, 3 doses, Starting on 10/11/23 at 2323, Until 10/12/23 at 0452, Nausea 2343 (Given - Provider: Perlita Milian, RN) ondansetron (pf) (Zofran) (2 mg/mL) injection 4 mg 4 mg, Intravenous, EVERY 8 HOURS PRN, Starting on 10/12/23 at 0451, Until 10/13/23 at 1957, Nausea, Use ondansetron first line and if ineffective use prochlorperazine second line. 09 ([facility] Hold - Provider: Admin Adt - Reason: Transfer to a Procedural area)113 ([facility] Unhold - Provider: Admin Adt) prochlorperazine (Compazine) (5 mg/mL) injection 10 mg(Linked Group 1) 10 mg, Intravenous, EVERY 6 HOURS PRN, Starting on 10/12/23 at 0450, Until 10/13/23 at 1957, Nausea, Vomiting, Use ondansetron first line and if ineffective use prochlorperazine second line., Routine 09 ([facility] Hold - Provider: Admin Adt - Reason: Transfer to a Procedural area)1132 ([facility] Unhold - Provider: Admin Adt) prochlorperazine (Compazine) tablet 10 mg(Linked Group 1) 10 mg, Oral, EVERY 6 HOURS PRN, Starting on 10/12/23 at 0450, Until 10/13/23 at 1957, Nausea, Use ondansetron first line and if ineffective use prochlorperazine second line. Maximum dose: 50 mg / 24 hrs, Routine 09 ([facility] Hold - Provider: Admin Adt - Reason: Transfer to a Procedural area)1132 ([facility] Unhold - Provider: Admin Adt) sodium chloride 0.9 % (flush) (BD PosiFlush Normal Saline 0.9) flush 5-20 mL 5-20 mL, Intravenous, EVERY 1 MIN PRN, Starting on 10/11/23 at 2327, Until 10/13/23 at 1957, flush, Flush pertains to all indwelling lines. Flush per protocol found in the job aid using the link provided on this medication record., Routine 0957 ([facility] Hold - Provider: Admin Adt - Reason: Transfer to a Procedural area)1132 ([facility] Unhold - Provider: Admin Adt) Linked Groups Order Group 1: prochlorperazine (Compazine) (5 mg/mL) injection 10 mgJump to med 10 mg, Intravenous, EVERY 6 HOURS PRN, Starting on 10/12/23 at 0450, Until 10/13/23 at 195, Nausea, Vomiting, Use ondansetron first line and if ineffective use prochlorperazine second line., Routine Or prochlorperazine (Compazine) tablet 10 mgJump to med 10 mg, Oral, EVERY 6 HOURS PRN, Starting on 10/12/23 at 0450, Until 10/13/23 at 195, Nausea, Use ondansetron first line and if ineffective use prochlorperazine second line. Maximum dose: 50 mg / 24 hrs, Routine documented in this encounter Care Teams Patient Navigator Relationship Specialty Start Date End Date Kumar Schultz MD [address] [place] [address] PCP - General Family Medicine 03/19/19 documented as of this encounter
--- OUTSIDE RECORDS SUMMARY | 2023-10-19 06:21 | XMS_ITS | Encounter Summary ---
Author Organization [facility] [place] [address] Care Team Providers Care Health And Wellness Advisor Name Role Phone Candie Skaggs MD Primary Care Provider Reason for Visit * Reason Comments Bilateral Leg Pain * Consultation (Routine) - Closed Specialty Diagnoses / Procedures Referred By Contac t Referred To Contact [facility] Diagnoses Bilateral hip pain Radiculopathy of lumbar region Lower extremity pain, left Lower extremity pain, right spine- BLE pain/ XR h/p 04/04/22 in eDH Rukhsana Mills PA [facility] [place] [address] [facility] [place] [address] Referral ID Status Reason Start Date Expiration Date V isits Requested Visits Authorized [id number] Closed Consult, Test & Treat 04/04/2022 04/04/2023 1 1 Encounter Details Date Type Department Care Team (Latest Contact Info) Description 06/10/2022 2:00 PM EDT Office Visit [place] [address] Candie Mandujano APRN [facility] [place] [address] Bilateral lumbar radiculopathy Social History Tobacco Use [...] Mandujano APRN - 06/10/2022 2:00 PM EDT [facility] Medical Decision Making: [...] MD Referring Provider: Rukhsana Mandujano APRN 06/10/2022 [facility] documented in this encounter Plan of Treatment Upcoming Encounters Date Type Department Care Team (Late st Contact Info) Description 10/27/2023 10:00 AM EDT TH Visit (TeleHealth) [place] [address] Olga Melgar APRN [facility] [place] [place] [address] documented as of this encounter Visit Diagnoses Diagnosis Bilateral lumbar radiculopathy documented in this encounter Care Teams Health And Wellness Advisor Relationship Specialty Start Date End Date Candie Skaggs MD [address] [place] [id number] PCP - General Family Medicine 03/19/19 documented as of this encounter
--- OUTSIDE RECORDS SUMMARY | 2023-10-19 06:21 | XMS_ITS | Encounter Summary ---
Author Organization [facility] [place] [address] Care Team Providers Care Quality Assurance Group Leader Name Role Phone Stefan Arteaga MD Primary Care Provider [phone] Reason for Visit * Reason Comments Travel Consult Encounter Details Date Type Department Care Team (Late st Contact Info) Description 10/14/2014 2:30 PM EDT Office [place] [phone] Charisma Zhang, RN [facility] [place] [address] Other specified counseling Discharge Disposition: Home Social [...] Have a great trip! Travel Safely, [email or web address] [phone] documented in this encounter Progress Notes * [...] Destination countries (list from first to last): [facility] Departure date: nov 17 Length of trip: 3weeks, ?tomy varanasi Purpose of travel: retreat Type of environment: small town Accommodations: [facility] guest house Medical History: Medical problems: Patient [...] AM EDT TH Visit (TeleHealth) [place] [address] Olga Melgar APRN [facility] [place] [address] documented as of this encounter Visit Diagnoses Diagnosis Other specified counseling documented in this encounter Care Teams Quality Assurance Group Leader Relationship Specialty Start Date End Date Stefan Arteaga MD PCP - General 10/13/14 03/18/19 documented as of this encounter
--- OUTSIDE RECORDS SUMMARY | 2023-10-19 06:21 | XMS_ITS | Encounter Summary ---
Author Organization [facility] Address [facility] [place] [address] Care Team Providers Care Pest Control Technician Name Role Phone Candie Skaggs MD Primary Care Provider [phone] Encounter Details Date Type Department Care Team (Latest Contact Info) Description 04/04/2022 2:53 PM EST - 04/04/2022 4:12 PM EST Hospital Encounter XRay at [address] [place] [id number] Lino Duke MD Bilateral hip pain Discharge [...] AM EDT TH Visit (TeleHealth) [place] [address] Olga Melgar APRN [facility] [place] [address] documented as of this encounter Procedures Procedure [...] who have questions please contact the health animal daycare provider that requested your imaging first. ? Electronically signed by: Yolanda Tripp MD, [facility] ([phone]), at 04/05/2022 9:46 AM Narrative 04/05/2022 9:46 [...] patients who have questions please contactthe health animal daycare provider that requested your imaging first. Lino Duke MD IMG DX ORDERABLES documented in this encounter Visit Diagnoses Diagnosis Bilateral hip pain Pain in joint, pelvic region and thigh documented in this encounter Care Teams Pest Control Technician Relationship Specialty Start Date End Date Candie Skaggs MD [address] [place] [address] PCP - General Family Medicine 03/19/19 documented as of this encounter
--- OUTSIDE RECORDS SUMMARY | 2023-10-19 06:21 | XMS_ITS | Encounter Summary ---
Author Organization [facility] [place] [address] Care Team Providers Care Product Line Manager Name Role Phone Candie Skaggs MD Primary Care Provider [phone] Encounter Details Date Type Department Care Team [...] AM EDT TH Visit (TeleHealth) [place] [address] Olga Melgar APRN [facility] [place] [address] documented as of this encounter Visit Diagnoses Not on filedocumented in this encounter Care Teams Product Line Manager Relationship Specialty Start Date End Date Candie Skaggs MD [address] [place] [address] PCP - General Family Medicine 03/19/19 documented as of this encounter
--- OUTSIDE RECORDS SUMMARY | 2023-10-19 06:21 | XMS_ITS | Encounter Summary ---
Author Organization [facility] [place] [address] Care Team Providers Care Process Development Associate Name Role Phone Candie Skaggs MD Primary Care Provider [phone] Reason for Referral * Consultation (Routine) - Authorized Specialty Diagnoses / Procedures Referred By Ko duarte Referred To Contact Dermatology Diagnoses Dysplastic nevus of skin Candie Skaggs MD [address] [place] [address] [facility] Dermatology [address] [place] [address] Referral ID Status Reason Start Date Expiration Date Visits Requested Visits Authorized [id number] Authorized Consult, Test & Treat PCP Updated and/or Approved 3 01/01/2024 6 6 Encounter Details Date Type Department Care Team (Latest Contact Info) Description 01/10/2023 Transcribe Orders eDH Incoming Referrals [phone] Candie Skaggs MD [address] [place] [address] Dysplastic nevus of skin Social [...] AM EDT TH Visit (TeleHealth) [place] [address] Olga Melgar APRN [facility] [place] [address] Scheduled Referrals Name Type Priority Associated Diagnoses Order Schedule Referral to Dermatology Outpatient Referral Routine Dysplastic nevus of skin Ordered: 01/10/2023 documented as of this encounter Visit Diagnoses Diagnosis Dysplastic nevus of skin Benign neoplasm of skin, site unspecified documented in this encounter Care Teams Process Development Associate Relationship Specialty Start Date End Date Candie Skaggs MD [address] [place] [address] PCP - General Family Medicine 03/19/19 documented as of this encounter
--- OUTSIDE RECORDS SUMMARY | 2023-10-19 06:22 | XMS_ITS | Encounter Summary ---
Author Organization [facility] [place] [address] Care Team Providers Care Clinic Administrator Name Role Phone [place], Estee Andino APRN Primary Care Provider [phone] Reason for Visit * Reason Onset Date Comments Results 02/26/2011 Encounter Details Date Type Department Care Team (Late st Contact Info) Description 02/26/2011 Telephone Cardiology at [address] [phone] George Jalloh MD [facility] [place] [address] Results Social History Tobacco Use Types Packs/Day [...] AM EDT TH Visit (TeleHealth) [place] [address] Olga Melgar APRN [facility] [place] [address] documented as of this encounter Visit Diagnoses Not on filedocumented in this encounter Care Teams Clinic Administrator Relationship Specialty Start Date End Date Estee Novak APRN PCP - General 01/09/10 10/12/14 documented as of this encounter
--- OUTSIDE RECORDS SUMMARY | 2023-10-19 06:22 | XMS_ITS | Encounter Summary ---
[place] [address] Care Team Providers Care Blow Pit Operator Name Role Phone [place], Estee Andino APRN Primary Care Provider [phone] Encounter Details Date Type Department Care Team (Latest Contact Info) Description 06/21/2010 3:33 AM EDT - 06/21/2010 4:56 PM EDT Hospital Encounter Hematology [place] [phone] [place] [address] [place] [address] Pulmonary embolism; Other pulmonary embolism and infarction [...] given today) Your Inpatient Medical Team at [facility] Name(s) of your inpatient provider(s): Dr. Goyo Lawson For questions regarding issues relating to your hospitalization on the Medical Service, please contact your inpatient physician through the [facility] Logistics Supervisor . Issues after hours and on weekends will be handled by the Hospitalist staff on-call. Your Primary Care Provider ESTEE STINSON APRN * Attachments The following attachments cannot be sent through Care Everywhere. * PULMONARY EMBOLISM: AFTER YOUR VISIT (FINNISH) * TIPS TO PREVENT BLOOD CLOTS: AFTER YOUR VISIT (FINNISH) * CONSISTENT VITAMIN K DIET: AFTER YOUR VISIT (FINNISH) documented in this encounter Medications at Time [...] Lawson MD - 06/21/2010 1:44 PM EDT [facility] Hospital Medicine - Attending Day of Discharge [...] Encounter Date: 06/21/2010 Patient Name: Nelsy Ruffin MR#:[id number] S: I'm still having some pain... In my back (indicating posterior shoulder blade) especially when I take a deep breath. O: patient reviewed in multidisciplinary rounds; CRC has reviewed E-Dh notes; introduced self and CRC role to patient and spouse Geovanni ([phone]); patient and agree to CRC services; pt currently lives w/ in own home in [place], [place]. Reason for hospital admission: pulmonary embolism. Current functional status/mobility: independent. Baseline functional status/mobility: no functional deficits. Home environment: not assessed. PCP and date of last appt: listed as Dr. Monica Stinson, pt verifies that as accurate. Current home services/DME and vendor: none. Insurance coverage: Medicare A,B. Prescription benefit and pharmacy: no prescription coverage, uses [facility] in [facility]. CRC called pharmacy to inquire about pt's bul-je-pmlgva expense for 5 day course of lovenox andshared cost w/ pt and . Financial concerns: no concerns voiced. Anticipated services at discharge: no needs noted at this time. Transportation at discharge: spouse will transport pt home. Social support: Geovanni. A: anticipate discharge w/in next 24 hours. P: This fiction and nonfiction writer prose or OCM colleague will continue to follow patient to assist w/ changing needs. CRC will collaborate w/ patient, medical team and family to formulate discharge plan. CRC may be reached on pager [phone] or by leaving a voice mail message at ext [phone]. Medical Team: Hospitalist Team, pager [phone]. Estee Loera RN, MSN, CRC Clinical Administrative Underwriter Office of Care Management Pager [phone] Phone: [phone] documented in this encounter H&P Notes * Memo Rosas, DO - 06/21/2010 8:07 AM EDT Inpatient Hospital Medicine - Admission Note Problem List: PE ID: [id number] y.o. Female presents to [facility] with unprovoked PE History of Present Illness: HPI 74 yo female with h/o HTN and hyperlipidemia presents for further evaluation and treatment of unprovoked PE. Patient states she was in her usual state of health then experienced acute onset of Right sided flank pain that radiated to her back. She reported respirophasic nature of the pain. She reported to [facility] ED for evaluation and was found to [...] nature of the pain. She reported to [facility] ED for evaluation and was found to [...] given today) Your Inpatient Medical Team at [facility] Name(s) of your inpatient provider(s): Dr. Goyo Lawson For questions regarding issues relating to your hospitalization on the Medical Service, please contact your inpatient physician through the [facility] Logistics Supervisor . Issues after hours and on weekends will be handled by the Hospitalist staff on-call. Your Primary Care Provider ESTEE STINSON APRN General Instructions Provider Contact Information: Dr. Goyo Lawson Discharge References/Attachments: Discharge References/Attachments PULMONARY EMBOLISM: AFTER YOUR VISIT (FINNISH) TIPS TO PREVENT BLOOD CLOTS: AFTER YOUR VISIT (FINNISH) CONSISTENT VITAMIN K DIET: AFTER YOUR VISIT (FINNISH) For questions regarding this document or issues relating to this hospitalization on the Medical Service, please contact your inpatient physician through the [facility] Logistics Supervisor . Issues afterhours and on weekends will be handled by the Hospitalist staff on-call. Signed: GOYO LAWSON 06/21/2010 * Miscellaneous - Provider, Payton - 06/21/2010 1:04 PM EDT * Plan of Care - Rebecca Lester RN - 06/21/2010 10:12 AM EDT [...] EDT TH Visit (TeleHealth) [place] [address] Olga Melgar APRN [facility] [place] [address] Pending Results Name Type Priority Associated Diagnoses [...] 06/22/19 11 5:44 AM EDT CARDIAC ENZYMES ([facility]) Routine 06/21/2010 5:44 AM EDT CBC (WITH [...] (Bezet) 435 ms MUSE SYSTEM Calculated P Burns 52 degrees MUSE SYSTEM Calculated R Burns 7 degrees MUSE SYSTEM Calculated T Burns 43 degrees MUSE SYSTEM INTERPRETATION Normal sinus rhythm Possible Anterior infarct , age undetermined Abnormal ECG When compared with ECG of 03-FEB-2007 14:21, No significant change was found Confirmed by MD Maya Timothy ([id number]) on 06/21/2010 11:50:11 AM MUSE SYSTEM 06/21/2010 10:3 5 AM EDT 06/21/2010 11:50 AM EDT Narrative Authorizing Provider Result Carol Rosas DO ECG ORDERABLES Performing Organization Address [facility] Co de Phone Number MUSE SYSTEM * (ABNORMAL) APTT (06/21/2010 5:45 AM EDT) Partial Thromboplastin Time 56(H) 25 - 37 sec [facility] Comment: Recommended therapeutic PTT range for full dose unfractionated heparin is 80-114 seconds. Blood specimen (specimen) 06/21/2010 5:45 AM EDT 06/21/2010 5:51 AM EDT Narrative Authorizing Provider Result Carol Rosas DO HEMATOLOGY ORDERABLE S Performing Organization Address [facility] Co de Phone Number [facility] * Protime-INR (06/21/2010 5:45 AM EDT) Prothrombin Time 13.9 12.3 - 14.7 sec [facility] Comment: [facility] Transfusion Committee Guidelines: INR less than 2.0, PTT less than OR equal to 43.5 seconds, or Fibrinogen greater than or equal to 100 mg/dl indicate adequate procoagulant activity for hemostasis in patients without underlying bleeding disorders. International Normalization Ratio 1.0 0.9 - 1.1 [facility] Blood specimen (specimen) 06/21/2010 5:45 AM EDT 06/21/2010 5:51 AM EDT Narrative Authorizing Provider Result Carol Rosas DO HEMATOLOGY ORDERABLE S Performing Organization Address [facility] Co de Phone Number MOA MARTÍNEZ * CARDIAC ENZYMES (06/21/2010 5:44 AM EDT) Pathologist [facility] Troponin-T <0.03 <=0.03 ng/mL [facility]ILL[facility] Comment: 0.03 ng/mL: Represents the 99th percentile upper reference limit for normals. >0.03 ng/mL: Elevated cardiac troponin T level indicative of myocardial damage. Diagnosis of acute, evolving or recent [place] requires a typical rise and gradual fall [...] consensus document of the Joint Society of Cardiology/[place]est[place] College of Cardiology Committee for the redefinition of myocardial infarction. Journal of the [place] College of Cardiology 2000; 36: 959-969] Creatine Kinase 62 0 - 160 unit/L [facility] MILLENNIUM Blood specimen (specimen) 06/21/2010 5:44 AM EDT 06/21/2010 6:07 AM EDT Memo Rosas DO CHEMISTRY ORDERABLES Performing Organization Address [facility] Co de Phone Number MAO MARTÍNEZ * (ABNORMAL) REFLEX LAB-A-DIFF (06/21/2010 5:44 AM EDT) Pathologist [facility] Neutrophil % 72.2(H) 34.0 - 71.0 % [...] Absolute 0.02 0.00 - 0.05 x10(3)/mc L [facility] Blood specimen (specimen) 06/21/2010 5:44 AM EDT 06/21/2010 5:50 AM EDT Memo Rosas DO HEMATOLOGY ORDERABLE S [facility] * Brain natriuretic peptide (on admission) (06/21/2010 5:44 AM EDT) NT-proBNP 44 <=125 pg/mL [facility] Blood specimen (specimen) 06/21/2010 5:44 AM EDT 06/21/2010 5:50 AM EDT Memo Rosas DO CHEMISTRY ORDERABLES [facility] * (ABNORMAL) Basic metabolic panel (06/21/2010 5:44 AM EDT) Glucose 159 60 - 199 mg/dL [facility] Comment:Diabetes: >=200 mg/d L plus symptoms Blood Urea Nitrogen 16 8 - 18 mg/dL [facility] Creatinine 0.64(L) 0.70 - 1.20 mg/dL CERNER [...] Rosas DO CHEMISTRY ORDERABLES Performing Organization Address City/[facility]/ZIP Co de Phone Number CERMyTime * (ABNORMAL) CBC (with Diff) (06/21/2010 5:44 [...] DO HEMATOLOGY ORDERABLE S Performing Organization Address City/[facility]/ZIP Co de Phone Number MAO MARTÍNEZ * ECHOCARDIOGRAM TRANSTHORACIC (06/21/2010) Anatomical Region Laterality Modality Other 06/21/2010 Narrative 06/21/2010 11:55 AM EDT Procedure: ? Transthoracic Echocardiogram ? Patient: ? CAT NELSY F ? (Age): 1935(74) Med Rec#: ?[id number] ?Sex: ?F ? Site Loc: ?[facility] ?Ht / Wt: ??155(cm)/68(kg) Pt. Loc: ? Adult Floor ? BSA: ?1 Study Date: ?06/21/2010 ?Pt. Type: Inpatient Tape: ? Referring: Clau Rosas Adult Basic Education Teacher: Gemma Rebolledo RCS Interpreting Fellow: Fei Reardon Diagnosis:CPT Code(s): ??Echo Full (81971), ??Spectral Doppler (49890), Color Doppler (52297), Indication(s): ??Pulmonary embolus, R/O Rhythm: Sinus HR [...] ? Mid-Inferior ?Normal ? Mid-Inferoseptal ?Normal ? Anderson-Septal ? Normal ? Anderson-Anterior ? Normal ? Anderson-Lateral ?Normal ? Anderson-Inferior ? Normal ? Anderson-Tip ?Normal ? Chambers ?Value ?Units (Range) ? [...] 11:55:10 Images reviewed and interpretation verified [facility] Cardiac Ultrasound Laboratory Procedure Note 06/21/2010 Procedure: Transthoracic Echocardiogram Patient: CAT Chavez (Age): 1935(74) Med Rec#: [id number] Sex: F Site Loc: [facility] Ht / Wt: 155(cm)/68(kg) Pt. Loc: Adult Floor BSA: 1.67 Study Date: 06/21/2010 Pt. Type: Inpatient Tape: Referring: Clau Rosas Adult Basic Education Teacher: Gemma Rebolledo RCS Interpreting Fellow: Fei Reardon Diagnosis:CPT Code(s): Echo Full (05097), Spectral Doppler (27102), Color Doppler (78734), Indication(s): Pulmonary embolus, R/O Rhythm: Sinus HR [...] change in the inferior vena cava dimension. [facility] Two-dimensional echo, spectral Doppler and color Doppler performed. Wall Motion: Segment Name Rest Base-Anteroseptal Normal Base-Anterior Normal Base-Anterolateral Normal Base-Posterolateral Normal Base-Inferior Normal Base-Inferoseptal Normal Mid-Anteroseptal Normal Mid-Anterior Normal Mid-Anterolateral Normal Mid-Posterolateral Normal Mid-Inferior Normal Mid-Inferoseptal Normal Anderson-Septal Normal Anderson-Anterior Normal Anderson-Lateral Normal Anderson-Inferior Normal Anderson-Tip Normal Chambers Value Units (Range) LV EF [...] 11:55:10 Images reviewed and interpretation verified [facility] Cardiac Ultrasound Laboratory Unknown ECHO ORDERABLES documented [...] than 145 sec X 2 - call home housekeeper See Bolus dosing guidance for aPTT values [...] than 145 sec X 2 - call home housekeeper See Bolus dosing guidance for aPTT values [...] RN) documented in this encounter Care Teams Blow Pit Operator Relationship Specialty Start Date End Date Estee Stinson APRN PCP - General 01/09/10 10/12/14 documented as of this encounter
--- OUTSIDE RECORDS SUMMARY | 2023-10-19 06:22 | XMS_ITS | Encounter Summary ---
Author Organization [facility] [place] [address] Care Team Providers Care Subwarehouse Supervisor Name Role Phone Estee Novak APRN Primary Care Provider [phone] Encounter Details Date Type Department Care Team (Latest Contact Info) Description 07/02/2010 1:45 PM EDT - 07/02/2010 11:59 PM EDT Hospital [place] [address] Unknown None Discharge Disposition: Home [...] AM EDT TH Visit (TeleHealth) [place] [address] Olga Melgar APRN [facility] GASTRO[place] [address] documented as of this encounter Procedures Procedure Name Priority Date/Time Associated Diagnosis Comments PROTHROMBIN TIME Routine 07/02/2010 1:55 PM EDT documented in this encounter Results * (ABNORMAL) PROTHROMBIN TIME (07/02/2010 1:55 PM EDT) Prothrombin Time 19.2(H) 12.3 - 14.7 sec MAO MARTÍNEZ Comment: [facility] Transfusion Committee Guidelines: INR less [...] on filedocumented in this encounter Care Teams Subwarehouse Supervisor Relationship Specialty Start Date End Date Estee Novak APRN PCP - General 01/09/10 10/12/14 documented as of this encounter
--- OUTSIDE RECORDS SUMMARY | 2023-10-19 06:22 | XMS_ITS | Encounter Summary ---
Author Organization [facility] [place] [address] Care Team Providers Care Grocery Sacker Name Role Phone [place], Estee Andino APRN Primary Care Provider [phone] Reason for Visit * Reason Comments Preoperative Cardiovascular Encounter Details Date Type Department Care Team (Late st Contact Info) Description 01/14/2011 3:30 PM EST Office Visit Cardiology at [address] [phone] George Jalloh MD [facility] [place] [address] Palpitations (Primary Dx) Discharge Disposition: Home Social [...] MONITOR NOTE Seen for instruction using a Liquid Stateo 7 day cardiac transient arrythmia monitor, ordered [...] HPI PULM: no cough,wheeze GI: no N,V,D,hematochezia,melena [employer] FOOTBALLER: no syncope,focal weakness,paresthesias PMH: HTN Hyperlipidemia Pulmonary [...] arrange for a 30 day event monitor (Ringpayopatch) to evaluate for possible A-fib. If she is demonstrated to have A-fib she may benefit from nursing home anticoagulation. At this time there is no [...] AM EDT TH Visit (TeleHealth) [place] [address] Olga Melgar APRN [facility] [address] documented as of this encounter Results * [...] Palpitations documented in this encounter Care Teams Grocery Sacker Relationship Specialty Start Date End Date Estee Novak APRN PCP - General 01/09/10 10/12/14 documented as of this encounter
--- OUTSIDE RECORDS SUMMARY | 2023-10-19 06:22 | XMS_ITS | Data Portability ---
Author Organization [place] - .[employer] [facility] [place] Address [address] [place] [phone] Care Team Providers Care Publications Editor Name Role Phone KUMAR SCHULTZ Primary Care Provider Assessment No assessment recorded. Plan of Treatment Reminders Order Date Submit Date Provider Last Modified By Organization Details Last Modified Time Details Appointments None recorded. Lab None recorded. Referral None recorded. Procedures None recorded. Surgeries None recorded. Imaging None recorded. Medication Orders famotidine 40 mg tablet 2021 022 [facility] [address] [place], [address], 15:06:03 Patient TargetsNo targets recorded. Patient InstructionsNo instructions recorded. Reason for Referral None Reported. Results Created Date Observation Date Name Description Value Unit Range Abnormal Flag Note LastModifiedBy Organization Detail LastModifiedTime 06/20/19 22 06/15/2021 MRI, abdom en, w/wo contr ast No observ ation record ed. [email or web address] [facility] (Radiology) [address] [place], [address], 06/27/2021 14:27:56 Result Notes None recorded. Problems Name Problem SNOMED Code Status Onset Date Resolution Date Notes Provider Name and Address Organization Details Recorded Time Gastroesophage al reflux disease without esophagitis 848055554 Active 2021 Geovanni Kramer MD [address] [place] [address], [address], [place], [address] [facility] [place] - .[facility] 15:09:11 Problem Notes None recorded. Procedures Surgical History Date Name Laterality Status Provider Name and Address Organization Details Recorded Time Appendectomy completed Geovanni butt MD [address] [facility],[address] [facility], [place], [address], [facility] - .[facility] 05/30/2021 14:59:40 Imaging Results Imaging Date Name Status LastModified by Organiz ation Details LastModified Time 06/15/2021 MRI, abdomen, w/wo contrast completed [email or web address] [facility] (Radiology) [address] [place], [address], 06/27/2021 14:27:56 Procedure Notes None recorded. Medical Equipment None Reported. Allergies Allergen ID Allergen Name Allergen Category Reaction Reaction Severity Criticality Documentation Date Start Date Code Code System Note Provider Name and Address Organization Details Recorded Time 1942196 codeine medicatio n Not available Not available Not available 05/30/2021 2670 RxNorm Geovanni Kramer MD [address] [facility], [address] [place], [address], [place] - .[facility] 15:00:03 Medications Name Sig Start Date Stop [...] Or Have You Ever Used Smokeless Tobacco? [id number] Information not available 05/30/2021 Do You Or [...] Diagnosis/Indication Diagnosis SNOMED-CT Code Diagnosis ICD10 Code [id number] Geovanni Mccoyrk_5 [address] [address] [place] [address],[place] [address] 05/30/2021 08:06:32 05/30/2021 16:13:14 Gastroesophageal reflux disease without esophagitis 325241107 K21.9 [id number] Geovanni Mccoyrk_5 [address] [address] [place] [address] 0 06/27/2021 13:08:09 06/27/2021 13:55:18 Gastroesophageal reflux disease without esophagitis 547239528 K21.9 Health Concerns Section Related Observation LastModified by Organization Detai ls LastModified Time None Recorded Concern Status LastModified by Organization Details LastModified Time None Recorded Advance Directives Directive None Recorded Payers Encounter Date Sequence Insurance Name Policy Number Policy Baez Covered Member ID Baez Member ID Guarantor Name 05/30/2021 1 [place]: [employer] Abby F Laly [id number] Abby [place] 06/27/2021 1 [place] [employer]MENT [employer] Abby F Laly [id number] Abby [place] Notes Date Note Type Note Provider Name [...] Not taking antacids. Denies BRBPR or melena. 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 Denies BRBPR or melena. 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 Had a normal upper GI series 06/15/21. CTAP negative 2 months ago per pt at [facility]. Geovanni Kramer MD [address] [place] [address],[address], [place], [address], [facility] - .[facility] 06/27/2021 13:54:02 OBGyn Episode No OBEpisode recorded.
--- OUTSIDE RECORDS SUMMARY | 2023-10-19 06:22 | XMS_ITS | Encounter Summary ---
Author Organization [place] [address] Care Team Providers Care Auto Slip Cover Installer Name Role Phone Estee Stinson APRN Primary Care Provider [phone] Reason for Visit * Reason Comments Follow-up Encounter Details Date Type Department Care Team (Late st Contact Info) Description 04/05/2011 11:30 AM EST Follow-Up Hematology [place] [phone] Audra Fields MD [facility] [address] [place] [address] Pulmonary embolism (Primary Dx) Discharge Disposition: Home [...] Fields MD - 04/05/2011 12:51 PM EST [facility] Department of Medicine [place] [address] [facility] THROMBOSIS FOLLOW UP [...] advil without relief and presented to the [facility] ER as the pain worsened. The pain was described as sharp and stabbing, like a knife, and was not associated with respiratory symptoms including shortness of breath and no cold or flu-like symptoms. A CTPA at [facility] showed a segmental PE involving the right lower lobe and she was transferred to [facility] for further treatment and evaluation. Shewas initially [...] stopping warfarin. She was seen in the 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 Since I saw her last she has done well. 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 Audra Fields MD Surveillance Agent, [facility] documented in this encounter Plan of Treatment Upcoming Encounters Date Type Department Care Team (Late st Contact Info) Description 10/27/2023 10:00 AM EDT TH Visit (TeleHealth) [place] [address] Olga Melgar APRN [facility] [place] [address] documented as of this encounter Visit Diagnoses Diagnosis Pulmonary embolism- Primary Other pulmonary embolism and infarction documented in this encounter Care Teams Auto Slip Cover Installer Relationship Specialty Start Date End Date Estee Stinson APRN PCP - General 01/09/10 10/12/14 documented as of this encounter
--- OUTSIDE RECORDS SUMMARY | 2023-10-19 06:22 | XMS_ITS | Encounter Summary ---
Author Organization [facility] [place] [address] Care Team Providers Care Maintenance Leader Name Role Phone Estee Novak APRN Primary Care Provider [phone] Reason for Visit * Reason Onset Date Comments Advice Only 03/12/2011 regarding labs f or upcoming yosef't in April Encounter Details Date Type Department Care Team (Late st Contact Info) Description 03/12/2011 Telephone Hematology [place] [phone] Amarilis Jacobs, pedigree tracer Only (regarding labs for upcoming yosef't in [...] Ruffin called in regards to his Abby Maciel#[id number]. He had some questions about maybe having labs before her appointment in April. She had a clot in the spring and was put on Coumadin, but now her PCP has taken her off this, she is doing fine but now thinking that maybe she shouldhave prior lab work done. h- [phone] Roxy Mondragon Clinical [place] [facility]On[facility] documented in this encounter Plan of Treatment Upcoming Encounters Date Type Department Care Team (Late st Contact Info) Description 10/27/2023 10:00 AM EDT TH Visit (TeleHealth) [place] [address] Olga Melgar APRN [facility] [place] [address] documented as of this encounter Visit Diagnoses Not on filedocumented in this encounter Care Teams Maintenance Leader Relationship Specialty Start Date End Date Estee Novak APRN PCP - General 01/09/10 10/12/14 documented as of this encounter
--- OUTSIDE RECORDS SUMMARY | 2023-10-19 06:22 | XMS_ITS | Encounter Summary ---
Author Organization [facility] [place] [address] Care Team Providers Care Retail Consultant Name Role Phone Estee Novak APRN Primary Care Provider [phone] Encounter Details Date Type Department Care Team (Late st Contact Info) Description 01/14/2011 Abstract Cardiology at [address] [address] Sarah Morales LPN Social History Tobacco Use [...] AM EDT TH Visit (TeleHealth) [place] [address] Olga Melgar APRN [facility] [address] documented as of this encounter Visit Diagnoses Not on filedocumented in this encounter Care Teams Retail Consultant Relationship Specialty Start Date End Date Estee Novak APRN PCP - General 01/09/10 10/12/14 documented as of this encounter
--- OUTSIDE RECORDS SUMMARY | 2023-10-19 06:22 | XMS_ITS | Encounter Summary ---
Author Organization [facility] [place] [address] Care Team Providers Care Director Of Consumer Marketing Name Role Phone Estee Novak APRN Primary Care Provider [phone] Encounter Details Date Type Department Care Team (Latest Contact Info) Description 01/14/2011 3:40 PM EST - 01/14/2011 11:59 PM EST Hospital Encounter Non-[place] [phone] Alexandra Hong RN Palpitations Discharge Disposition: Home [...] AM EDT TH Visit (TeleHealth) [place] [address] Olga Melgar APRN [facility] [place] [address] documented as of this encounter Procedures Procedure [...] Palpitations documented in this encounter Care Teams Director Of Consumer Marketing Relationship Specialty Start Date End Date Estee Novak APRN PCP - General 01/09/10 10/12/14 documented as of this encounter
--- OUTSIDE RECORDS SUMMARY | 2023-10-19 06:22 | XMS_ITS | Encounter Summary ---
Author Organization [facility] [place] [address] Care Team Providers Care Ebd Special Education Teacher Name Role Phone [place], Estee Andino APRN Primary Care Provider Reason for Visit * Reason Comments Advice Only NPW Pulmonary Embolism Encounter Details Date Type Department Care Team (Late st Contact Info) Description 03/18/2011 1:00 PM EST Office Visit Hematology [place] [phone] Audra Fields MD [facility] [address] [place] [address] Pulmonary embolism (Primary Dx) Discharge Disposition: Home [...] Fields MD - 03/18/2011 2:41 PM EST [facility] Department of Medicine [place] [address] [facility] THROMBOSIS CONSULTATION DATE [...] advil without relief and presented to the [facility] ER as the pain worsened. The pain was described as sharpand stabbing, like a knife, and was not associated with respiratory symptoms including shortness ofbreath and no cold or flu-like symptoms. A CTPA at [facility] showed a segmental PE involving the right lower lobe and she was transferred to [facility] for further treatment and evaluation. She was [...] stopping warfarin. 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 Irrespective of the presence or absence of [...] recommendations at that time. Audra Fields MD Engineering Designer, [facility] documented in this encounter Plan of Treatment Upcoming Encounters Date Type Department Care Team (Late st Contact Info) Description 10/27/2023 10:00 AM EDT TH Visit (TeleHealth) [place] [address] Olga Melgar APRN [facility] [place] [address] documented as of this encounter Procedures Procedure [...] * PROTHROMBIN MUT (03/18/2011 2:20 PM EST) [facility] Prothrombin Mutation Negative [facility] Prothrombin Mutation Inter [place]: [place] [address] (G->A) [place] IN THE 3' UNTRANSLATED REGION OF THE PROTHROMBIN GENE. METHODS: The region of interest in the Prothrombin gene [22072 (G->A)] is interrogated using the Third Wave [...] determined by the Molecular Pathology Laboratory at [facility]. This test is used for clinical purposes and should not be considered as investigational or for research purposes. ??It has not been cleared or approved by the U.S. Food and Drug Administration. However, as a C.L[place]A. licensed laboratory, our facility is approved for such high complexity clinical testing. [facility] Comment: [VERIFIED DATE]03.22.11 Verified By:Lizy Quesada MD Pathologist (Electronic Signature) Blood specimen (specimen) 03/18/2011 2:20 PM EST 03/19/2011 7:33 AM EST Audra Fields MD HEMATOLOGY ORDERAB LES Performing Organization Address [facility] de Phone Number [facility] * (ABNORMAL) PROTEIN S ACTIVITY (03/18/2011 2:20 PM EST) Protein S Act 134(H) 65 - 123 % activity [facility] Blood specimen (specimen) 03/18/2011 2:20 PM EST 03/18/2011 2:25 PM EST Audra Fields MD HEMATOLOGY ORDERAB LES Performing Organization Address [facility] Phone Number [facility] * (ABNORMAL) PROTEIN C ACTIVITY (03/18/2011 2:20 PM EST) Protein C Activity 200(H) 67 - 156 % activity [facility] Blood specimen (specimen) 03/18/2011 2:20 PM EST 03/18/2011 2:25 PM EST Audra Fields MD HEMATOLOGY ORDERAB LES Performing Organization Address [facility] Phone Number [facility] * (ABNORMAL) ANTITHROMBIN (03/18/2011 2:20 PM EST) Antithrombin III Assay 128(H) 80 - 120 % [facility] Blood specimen (specimen) 03/18/2011 2:20 PM EST 03/18/2011 2:25 PM EST Audra Fields MD HEMATOLOGY ORDERAB LES Performing Organization Address [facility]/ZIP Co de Phone Number [facility] * APC RESISTANCE (03/18/2011 2:20 PM EST) Activated Protein C Resistance 2.45 >=2.00 [facility] Blood specimen (specimen) 03/18/2011 2:20 PM EST 03/18/2011 2:25 PM EST Adura Fields MD HEMATOLOGY ORDERAB LES [facility] * BETA-2 GLYCOPROTEIN ANTIBODIES (03/18/2011 2:20 PM EST) Beta 2 Glycoprotein, IgG <21 <=20 unit(s) [facility] Comment: Ranges ?Units ----- ? ----- Normal ? <21 Low Positive (+) ?21-50 Moderate Positive (+) ? 51-100 High Positive (+) ?>100 Beta 2 Glycoprotein, IgM <21 <=20 unit(s) [facility] Comment: Ranges ? Units ----- ?----- Normal ?<21 Low Positive (+) ? 21-50 Moderate Positive (+) ?51-100 High Positive (+) ? >100 B2GPI Interp see comment [facility] Comment:See Thrombosis Scree n Report in eDH under Coagulation Reports Blood specimen (specimen) 03/18/2011 2:20 PM EST 03/19/2011 8:07 AM EST Audra Fields MD IMMUNOLOGY ORDERAB LES [facility] * HOMOCYSTEINE TOTAL, PLASMA (03/18/2011 2:20 PM EST) Homocystine 9 5 - 12 mcmol/L [facility] Comment: Reference Range applies to fasting specimens only. Note change of reference range from 5-15 mcmol/L to 5-12 mcmol/L on 09/20/08. Blood specimen (specimen) 03/18/2011 2:20 PM EST 03/19/2011 8:16 AM EST Audra Fields MD CHEMISTRY ORDERABL ES Performing Organization Address [facility] de Phone Number [facility] * CARDIOLIPIN ANTIBODY SCREEN (03/18/2011 2:20 PM EST) Cardiolipin Antibody IgG <23 <=22 GPL unit(s) [facility] Comment: Ranges ? GPL ------- ? ------ Normal ?<23 Low Positive ? 23-35 Moderate Positive ?36-50 High Positive ? >50 Cardiolipin Antibody IgM <11 <=10 MPL unit(s) [facility] Comment: Ranges ?MPL ----- ?----- Normal ?<11 Low Positive ? 11-20 Moderate Positive ?21-30 High Positive ? >30 Blood specimen (specimen) 03/18/2011 2:20 PM EST 03/19/2011 8:07 AM EST Audra Fields MD IMMUNOLOGY ORDERAB LES Performing Organization Address [facility] Co de Phone Number [facility] * THS REPORT (03/18/2011 2:20 PM EST) THS Report See Comment [facility] Comment: See Thrombosis Screen Report [id number] under Coagulation Reports Blood specimen (specimen) 03/18/2011 2:20 PM EST 03/18/2011 2:25 PM EST Audra Fields MD HEMATOLOGY ORDERAB LES Performing Organization Address [facility] de Phone Number [facility] * PLAT (03/18/2011 2:20 PM EST) Platelet 288 145 - 370 x10(3)/mcL [facility] Blood specimen (specimen) 03/18/2011 2:20 PM EST 03/18/2011 2:25 PM EST Audra Fields MD HEMATOLOGY ORDERAB LES Performing Organization Address City/[facility] Co de Phone Number [facility] * LANT (03/18/2011 2:20 PM EST) Lupus Anticoagulant Neg Neg [facility] Blood specimen (specimen) 03/18/2011 2:20 PM EST 03/18/2011 2:25 PM EST Audra Fields MD HEMATOLOGY ORDERAB LES Performing Organization Address [facility] de Phone Number [facility] * TT (03/18/2011 2:20 PM EST) Thrombin Time 16 15 - 20 sec [facility] Blood specimen (specimen) 03/18/2011 2:20 PM EST 03/18/2011 2:25 PM EST Audra Fields MD HEMATOLOGY ORDERAB LES Performing Organization Address [facility] Phone Number [facility] * FIBR (03/18/2011 2:20 PM EST) Fibrinogen 327 200 - 470 mg/dL [facility] Blood specimen (specimen) 03/18/2011 2:20 PM EST 03/18/2011 2:25 PM EST Audra Fields MD HEMATOLOGY ORDERAB LES Performing Organization Address [facility] Phone Number [facility] * PTT (03/18/2011 2:20 PM EST) Partial Thromboplastin Time 25 25 - 35 sec [facility] Comment: Recommended therapeutic PTT range for full dose unfractionated heparin is 80-114 seconds. Blood specimen (specimen) 03/18/2011 2:20 PM EST 03/18/2011 2:25 PM EST Audra Fields MD HEMATOLOGY ORDERAB LES Performing Organization Address [facility] de Phone Number [facility] * PT (03/18/2011 2:20 PM EST) Prothrombin Time 12.9 12.3 - 14.7 sec [facility] Comment: [facility] Transfusion Committee Guidelines: INR less than 2.0, PTT less than OR equal to 43.5 seconds, or Fibrinogen greater than or equal to 100 mg/dl indicate adequate procoagulant activity for hemostasis in patients without underlying bleeding disorders. International Normalization Ratio 0.9 0.9 - 1.1 [facility] Blood specimen (specimen) 03/18/2011 2:20 PM EST 03/18/2011 2:25 PM EST Audra Fields MD HEMATOLOGY ORDERAB LES Performing Organization Address [facility] de Phone Number [facility] * D-Dimer, Quantitative (03/18/2011 2:20 PM EST) Pathologist [facility] D-Dimer 201 0 - 500 FEU ng/ml [facility] Comment: The D-Dimer assay is used to [...] MD HEMATOLOGY ORDERAB LES Performing Organization Address [facility] de Phone Number [facility] * THROMBOSIS SCREEN REPORT (03/18/2011 2:15 PM EST) [facility] Thrombosis Screen Report ? [facility] ? Provider: ?? Diamond SMITH, ?Pt. Name: ?? CAT, NELSY F ?Audra Laguna ? Acc #: ?[id number] ? Pt. ? Col Date: ?? 03/18/2011 [...] ?(IgM <11 MPL) ? <11 MPL ? Eufu-5-lgjulbgmsvlz- 1 antibodies ??(IgG <21 units) ? IgG <21 units ? Only-4-otpqdgclkcas- 1 antibodies ??(IgM <21 units) ? IgM <21 units ? Homocysteine, random, plasma ?(<12 umol/L) ?9 umol/L ? Prothrombin (86495 G->A) mutation (normal) ?negative ? * Functional assay for free Protein S and Protein C ? ---Interpretation--- ? No evidence for the presence of common hematologic risk factors associated ? with hereditary or acquired thrombophilia (see ? comment). ? 03/26/11 ? DLO ? 03/26/11 Verified by: ? Audra Fields MD ? Hematopathologist ? (Electronic Signature) ? The [...] presence of factor V Leiden. ??The ? [facility] ? Provider: ?? Diamond SMITH, ?Pt. Name: ?? CAT, NELSY Chavez ?Audra Edmond. ? Acc #: ?[id number] ? Pt. ? Col Date: ?? 03/18/2011 [...] risk for this patient, if clinically appropriate. AMO SCHROEDERCHERYL 03/18/2011 2:15 PM EST Audra Fields MD PATHOLOGY/CYTOLOGY ORDERABLES MAO MARTÍNEZ documented in this encounter Visit Diagnoses Diagnosis Pulmonary embolism- Primary Other pulmonary embolism and infarction documented in this encounter Care Teams Ebd Special Education Teacher Relationship Specialty Start Date End Date Estee Stinson APRN PCP - General 01/09/10 10/12/14 documented as of this encounter
[2023-10-19 06:45] LABS: Abs Immature Grans 0.01 10^3/uL (0.0-0.06); Absolute Basophil Count 0.03 10^3/uL (0.0-0.2); Absolute Lymphocyte Count 1.52 10^3/uL (1.2-3.4); Absolute Monocyte Count 0.34 10^3/uL (0.1-0.8); Absolute Neutrophil Count 3.22 10^3/uL (1.2-6.7); Basophils % 0.6 %; Eosinophils % 1.9 %; HCT 36.9 % (36.0-46.0); HGB 12.9 g/dL (11.2-15.7); Immature Grans % 0.2 %; Lymphocytes % 29.1 %; MCH 32.5 pg (27.0-33.0); MCV 93 fL (80-95); MPV 10.5 fL (8.0-11.0); Monocytes % 6.5 %; Neutrophils % 61.7 %; Platelet Count 246 10^3/uL (130-400); RBC 3.97 10^6/uL (3.93-5.22); RDW 12.5 % (11.7-14.6); RDW-SD 42.9 fL; WBC 5.22 10^3/uL (4.4-10.8)
[2023-10-19] MEDS: Lactated Ringers 1,000 ML 1000 ML IV (06:45)
[2023-10-19] MEDS: Prochlorperazine 10 MG/2 ML VIAL IVP (06:46)
[2023-10-19 07:04] LABS: ALT 25 U/L (14-59); AST 14 U/L (15-37); Alkaline Phosphatase 55 U/L (46-116); Anion Gap 16.3 mmol/L (3-11); BUN 23 mg/dL (7-18); Bilirubin, Total 1.68 mg/dL (0.2-1.0); CO2 23.7 mmol/L (21.0-32.0); CREATININE 1.1 mg/dL (0.55-1.02); Calcium 9.7 mg/dL (8.5-10.1); Chloride 105 mmol/L (98-107); Estimated GFR 48.63 (mL/min/1.73m2); Glucose 109 mg/dL (74-106); Lipase 81 U/L (16-77); Potassium 3.1 mmol/L (3.5-5.1); Sodium 145 mmol/L (136-145); Total Protein 7.5 g/dL (6.4-8.2)
--- NOTE | 2023-10-19 07:30 | DI.US_ITS ---
Exam(s) US ABDOMEN LIMITED EXAM: US ABDOMEN LIMITED CLINICAL HISTORY: upper abdominal pain TECHNIQUE: Ultrasound abdomen performed using standard protocol. COMPARISON: CT CT CHEST PE CTA from 01/19/2021 US US ECHOCARDIOGRAM from 06/20/2021 FINDINGS: There is no ascites evident. LIVER: There are no hepatic lesions evident nor dilatation of intrahepatic ducts. GALLBLADDER/BILIARY: There appears to be some sludge in the gallbladder lumen seen on a few images. No shadowing gallstones. No gallbladder distension nor gallbladder wall edema. There is no perichol ecystic fluid. The common hepatic duct isnot dilated, measuring 3-4mm at the level of andrew hepatis. PANCREAS: There is no evidence of pancreatic mass nor dilatation of the pancreatic duct. RIGHT KIDNEY:Small hyperechoic focus at the mid pole level may represent a small nonobstructive renal calculus. No hydronephrosis. No cysts nor solid right renal masses. IMPRESSION: 1. There appears to be some sludge in the gallbladder lumen. However, no ultrasound evidence of acu te cholecystitis. Common hepatic duct is not dilated. 2. Small hyperechoic focus in the midpole level of the right kidney is possibly a nonobstructive lore culus. 3. No other right upper quadrant ultrasound findings and there is no ascites. DATA REPOSITORY:
[2023-10-19] MEDS: Normal Saline Flush 10 ML SYR IVP ×3 (07:54→11:11)
[2023-10-19] MEDS: Pantoprazole 40 MG VIAL IVP (07:54)
[2023-10-19] MEDS: Simethicone 80 MG CHEW PO (07:54)
[2023-10-19 08:12] LABS: Lab Add On Test DONE
[2023-10-19] MEDS: POTASSIUM CHLORIDE 10 MEQ/100 ML BAG 100 MEQ IVINF ×2 (08:14→10:26)
[2023-10-19 08:27] LABS: Troponin I < 50 ng/L (< or =60)
--- NOTE | 2023-10-19 10:41 | DI.VRAD_ITS ---
PROCEDURE INFORMATION: Exam: US Abdomen, Limited; Right Upper Quadrant Exam date and time: 10/19/2023 9:21 AM Age: 87 years old Clinical indication: Abdominal pain; Epigastric TECHNIQUE: Imaging protocol: Real time ultrasound of the abdomen with image documentation. Limited exam focused on the right upper quadrant. COMPARISON: No relevant prior studies are available for comparison. FINDINGS: Liver: No focal hepatic lesion demonstrated. Gallbladder: Sludge and/or small calculi in the gallbladder. No gallbladder calculi are identified. No gallbladder wall thickening demonstrated. No sonographic Maradiaga's sign was elicited. Per the chief ultrasound technologist, patient reported 5-6/10 epigastric tenderness. Biliary ducts: Common bile duct not dilated. Pancreas: Unremarkable as visualized. Right kidney: Questionable 4 mm right renal calculus. No right hydronephrosis. IMPRESSION: 1. No sonographic evidence for cholecystitis. 2. Findings as above. Dictated and Authenticated by: Karen Maddox MD. Ordering:ENOC Reynolds MD
--- NOTE | 2023-10-19 10:58 | W.EDPROG ---
Date of service: 10/19/23 Time of Service: 10:58 Medical Decision Making Patient's ultrasound shows sludge versus possible tiny stones but no evidence of cholecystitis. He has minimal epigastric tenderness negative Maradiaga sign. Given reassuring workup do not feel she requires hospitalization at this time. She will follow-up with her GI specialist at [facility] and return precautions given Quality:[facility] Health Related Social Needs: No Data to Display Sign Out Sign Out Data: Sign Out Comment: Pending right upper quadrant ultrasound Last updated by Rodolfo Morales MD at 10/19/23 08:53 Discharge Plan Disposition Patient Disposition: Home Condition: Stable Discharge Details Clinical Impression: Abdominal pain Primary Care Provider: Candie Skaggs ED Provider: Geovanni Marie Home Meds and New Rx's Prescriptions: New ondansetron 4 mg tablet,disintegrating 4 mg PO Q8H PRN (Reason: nausea and vomiting) Qty: 30 0RF Continued estradiol 0.01 % (0.1 mg/gram) cream 1 g vaginal .COMPLEX Qty: 42.5 5RF Rx Instructions: 1 g vaginal; 2 times a week Emergen-C 1,000 mg powder effervescent in packet 1 packet PO DAILY clobetasol 0.05 % ointment 1 applic topical .COMPLEX Qty: 45 4RF Rx Instructions: 1 applic topically tiny amount to clitoris; hydrochlorothiazide 12.5 mg tablet 12.5 mg PO DAILY losartan 100 mg tablet 100 mg PO DAILY magnesium oxide 500 mg tablet 500 mg PO DAILY cholecalciferol (vitamin D3) 50 mcg (2,000 unit) capsule 50 mcg PO DAILY lorazepam 0.5 mg tablet 0.5 mg PO DAILY PRN estradiol 0.01 % (0.1 mg/gram) cream 1 g vaginal .twice weekly Qty: 42.5 4RF Xarelto 20 mg tablet 10 mg PO DAILY Patient Comments: TAKE ONE TABLET BY MOUTH EVERY DAY potassium chloride 20 mEq tablet extended release 20 meq PO DAILY Patient Comments: 06/22/20 pt states that she only takes it sometimes dicyclomine 10 mg capsule 10 mg PO BID PRN Patient Comments: TAKE ONE CAPSULE BY MOUTH TWICE A DAY NEEDED STOMACH SPASMS amlodipine 5 mg tablet 5 mg PO DAILY Patient Comments: TAKE ONE TABLET BY MOUTH EVERY DAY pantoprazole 40 mg tablet,delayed release (DR/EC) 40 mg PO BID Patient Comments: TAKE ONE TABLET BY MOUTH TWICE A DAY metoprolol succinate 25 mg tablet extended release 24 hr 12.5 mg PO DAILY Patient Comments: TAKE ONE-HALF TABLET BY MOUTH TWICE A DAY Discharge Instructions Additional Instructions: Your blood work and ultrasound did not show any concerning findings at this time Trying to eat protein shakes or Ensure shakes can help increase your protein intake. Follow-up with your primary care provider and GI specialist at [facility] If you feel more ill or have new symptoms such as high fevers return to the emergency department for reevaluation.
== END 2023-10-19 11:57 | disposition home or self-care (01) ==
PROVIDERS: Emergency Medicine; Emergency Provider Emergency Medicine; PCP Family Medicine
DX: R10.13 Epigastric pain (principal)
CPT/HCPCS: 123; 36415; 80053; 83690; 93005; 96361; 96374; 96375; 99284; 00123; 76705; 84484; 85025; 93010; 99283; J0780; J2470; J3480

== ENCOUNTER 2023-11-25 02:01 | Outpatient (CLI) | payer MEDICARE, SELFPAY ==
--- NOTE | 2023-11-25 | DI.NM_ITS ---
Exam(s) NM HEPATOBILIARY CCK GRP EXAM: NM HEPATOBILIARY CCK GRP CLINICAL HISTORY: RUQ PAIN R10.11 FLATULENCE R14.3. TECHNIQUE: Injected dose: 4.7 mCi Tc-99 mebrofenin Initial dynamic images: 60 minutes Post-Gallbladder fillin.02 mcg/kg CCK intravenously over a 20min infusion. Addition images: 20 minute dynamic during CCK administration. COMPARISON: Prior ultrasound 10/19/2023. FINDINGS: There is normal uptake and excretion of radiopharmaceutical by the liver and activity is seen within the gallbladder lumen starting at 8 minutes post-injection. Following CCK infusion there is a normal gallbladder ejection fracture in of 66 percent demonstrated (normal is above 35 percent). IMPRESSION: 1. No evidence of obstruction of the cystic duct. 2. No evidence of gallbladder dysfunction. 3. Normal gallbladder ejection fraction of 66 percent evident on this study in response to CCK infusi on
[2023-11-25] MEDS: Sincalide 5 MCG VIAL 1 MCG IJ (12:47)
== END 2023-11-25 02:21 ==
PROVIDERS: PCP Family Medicine; Visit Provider Internal Medicine
DX: R10.11 Right upper quadrant pain (principal)
CPT/HCPCS: 78227; J2805

== ENCOUNTER 2023-12-12 09:36 | Outpatient (CLI) | payer MEDICARE, SELFPAY ==
--- OUTSIDE RECORDS SUMMARY | 2023-12-12 09:42 | XMS_ITS | Encounter Summary ---
Author Organization [facility] [place] [address] Care Team Providers Care Potato Chip Sorter Name Role Phone Candie Skaggs MD Primary Care Provider [phone] Reason for Referral * Consultation (Routine) - Pending Review Specialty Diagnoses / Procedures Referred By Ko duarte Referred To Contact Gastroenterology Diagnoses Functional dyspepsia Benita Mclean MD [facility] [place] [address] Gastroenterology, [address] [address] Referral ID Status Reason Start Date Expiration Date Visits Requested Visits Authorized [id number] Pending Review Consult, Test & Treat 10/14/2023 04/11/2024 1 1 Encounter Details Date Type Department Care Team (Late st Contact Info) Description 10/14/2023 Orders [place] [address] Benita Mclean MD [facility] [place] [address] Functional dyspepsia Social History Tobacco Use Types Packs/Day Years Used Date Smoking Tobacco: Former Cigarettes 0.5 3 Smokeless Tobacco: Former Quit: 06/22/1979 Alcohol Use Standard Drinks/Week Comments Yes 2 (1 standard drink = 0.6 oz pur e alcohol) [facility] Utilities Answer Date Recorded In the past [...] any time in the past 12 m [facility], were you homeless or living in a care home (including now)? No 10/13/2023 IPV Inpatient [...] stomach documented in this encounter Care Teams Potato Chip Sorter Relationship Specialty Start Date End Date Candie Skaggs MD [address] [place] [address] PCP - General Family Medicine 03/19/19 documented as of this encounter
--- OUTSIDE RECORDS SUMMARY | 2023-12-12 09:42 | XMS_ITS | Encounter Summary ---
Author Organization [facility] [place] [address] Care Team Providers Care Freight Forwarder Name Role Phone Candie Skaggs MD Primary Care Provider [phone] Reason for Visit * Consultation (Routine) - Closed Specialty Diagnoses / Procedures Referred By Ko duarte Referred To Contact Gastroenterology Diagnoses Functional dyspepsia Benita Mclean MD [facility] [place] [address] [facility] [place] [place] [address] [place] [address] Referral ID Status Reason Start Date Expiration Date V isits Requested Visits Authorized [id number] Closed Consult, Test & Treat 10/13/2023 10/12/2024 1 1 Encounter Details Date Type Department Care Team (Latest Contact Info) Description 10/27/2023 10:00 AM EDT TH Visit (TeleHealth) [place] [address] Olga Melgar APRN [facility] [place] [address] Burping; Gastroesophageal reflux disease, unspecified whether esophagitis present; 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 No 10/13/2023 IPV Inpatient [...] this encounter Patient Instructions * Patient Instructions* Olga Melgar APRN - 10/27/2023 10:00 AM EDT Kimberly to meet you today, Ms Ruffin - Therapeutics #Continue to take pantoprazole daily - either 20 mg twice daily, taken 30-60 minutes before the first and last meals of the day or (my preference) - 40 mg once daily, taken 30-60 minutes before the first meal of the day #DIAPHRAGMATIC BREATHING TO TREAT BELCHING Place one hand on the belly and one on the chest. Slowly breath in (inhale) through the nose. Only the hand on the belly should move out, and the hand on the chest should move minimally. Then slowly breath out (exhale) through the mouth. Each breath should be slow and complete. Try to breath in for 4 seconds, hold for 1 second, then breath out for 8 seconds. Do these exercises for 10 minutes in the morning. Then do these exercises 3 minutes before every meal, taking occasional deep breaths throughout the meal, and then continuing the exercises for 30 minutes after each meal. Reference: Am J Gastroenterol. 2016;111(7):1007. Tips to avoid swallowing excessive air (Aerophagia) to minimize burping, bloating, and excessive gas Changing our Eating Habits. Consume food and drink slowly. One of the most effective ways to keep yourself from swallowing air is to eat your food and drink beverages slowly. Try to take 3 to 5 seconds with each bite and space out your sips. Relax while you are eating, as stress can cause you to eat food too quickly. Chewing your food fully before swallowing will also help keep air out when you swallow. Avoid straws, if possible. They will make you drink faster than you should, and can pull airup with them Stay away from carbonation. Carbonated beverages contain carbon dioxide, which is a major componentof air. Drinking them will be similar to drinking a great deal of air all at once. If your goal is to avoid burping, this is one of the most important steps you can take. Beer and sparkling wine, while not artificially carbonated, can also worsen symptoms. Follow Up #No follow up needed unless she gets pH testing, to discuss results. Happy to see Abby anytime. Due to the consultative nature of our practice, the patient should continue to work with primary care provider as the primary point of contact for urgent issues, medication refills and adjustments asneeded for continuity of care purposes in between visits to our center based on the recommendationsabove. documented in this encounter Progress Notes * Olga Melgar APRN - 10/27/2023 10:00 AM EDT Images from the original note were not included. [facility] TELEMEDICINE PROGRAM Chief Complaint: Abby Ruffin is a 87 y.o. patient referred for consultation by Candie Skaggs MD for belching, weight loss, bloating Detailed History: 87 y.o. female with a past medical history to include, but not limited to: Appendectomy, A-fib on Xarelto, prior PE, Haque's esophagus, esophagitis Patient Active Problem List Diagnosis Code Pulmonary embolism, unprovoked I26.99 Pericardial effusion I31.39 Hypertension I10 GERD (gastroesophageal reflux disease) K21.9 Hyperlipidemia E78.5 Squamous cell carcinoma [id number] History of SCC (squamous cell carcinoma) of skin Z85.828 Solar lentigo L81.4 Epigastric pain R10.13 Gastroesophageal reflux disease without esophagitis K21.9 PMR (polymyalgia rheumatica) M35.3 Hypertensive urgency I16.0 10/12/2023 ED GI Consult by Xavi Monroe MD-- ASSESSMENT & PLAN: Abby Ruffin is a 87 y.o. female with a PMH of HTN, HLD prior PE, afib on xarelto, esophagitis, PMR, ?Haque's esophagus, prior appendectomy presenting with epigastric pain, bloating and belching. Abby has had many years of epigastric discomfort, [...] of inflammation, ulcers, structural abnormalities, and malignancy. Interval History: Excessive burping - sometimes upon waking, sometimes after eating, sometimes at night when laying down. She went 3 months without belching- she was very busy. Sometimes feels like she cannot burp - it is stuck mid-abdominal- and her blood pressure goes up Burping has calmed down since a week after hospitalization. She was given 40 mg BID pantoprazole ondischarge, has now reduced it to 20 mg BID Feels neck tightening. Unintentional weight loss - 135 lb now, but was 148-149 lb a month ago, negative GI workup Rare NSAIDS On blood thinner - Larios testing contraindicated Current Regimen: 20 mg pantoprazole BID Past Treatments: Review of systems: 14-point review of systems reviewed and negative except as above. Medications: Outpatient Medications Prior to Visit Medication Sig Dispense Refill amLODIPine (Norvasc) 5 mg tablet Take 1 tablet by mouth daily. 90 tablet 3 diphenhydrAMINE/aluminum-magnesium hydroxide with simethicone/lidocaine (BMX) (6.67 mg-0.83 mg-13.33 mg-1.33 mg/mL) oral liquid Take 5 mLs by mouth 3 times daily. 237 mL 3 pantoprazole EC (Protonix) [address] tablet Take 1 tablet by mouth 2 times daily. 90 tablet 3 hydrocortisone 2.5 % Cream Apply to affected area of the nose twice daily as needed. 30 g 0 prochlorperazine (Compazine) 5 mg Tablet Take 1 tablet by mouth every 6 hours as needed for Nausea.15 tablet 0 calcium carbonate/vitamin D3 (VITAMIN D-3 [...] Tablet Take 10 mg by mouth daily. No facility-administered medications prior to visit. Allergies: is allergic to codeine phosphate. Past Medical History: has a past medical history of GERD (gastroesophageal reflux disease), Hyperlipidemia, Hypertension, Pericardial effusion (06/21/2010), and Pulmonary embolism, unprovoked (06/21/2010). Past Surgical History: has a past surgical history that includes Appendectomy and Upper Gi Endoscopy, Biopsy ([id number]) (N/A, 10/13/2023). Family History: family history is not on file. denies family history of colon cancer, IBD, or celiac disease in mother father or other family members Social History: reports that she has quit smoking. Her smoking use included cigarettes. She has a 1.5 pack-year smoking history. She quit smokeless tobacco use about 44 years ago. She reports currentalcohol use of about 2.0 standard drinks of alcohol per week. She reports that she does not use drugs. No Physical Examination performed during this telemedicine visit Laboratory studies, imaging, and procedures: Upper GI Series 06/15/21 CT A/P w contrast 06/06/21 CT chest/a/p - 10/12/2023 CT Angiogram Chest Abdomen Pelvis w Contrast [...] have questions please contact the health care team assistant that requested your imaging first. 10/13/2023 EGD - - Esophagogastric landmarks identified. - Esophageal mucosal changes secondary to established short-segment Haque's disease, classified as Haque's stage C0-M1 per Avery criteria. Biopsied. - Normal stomach. Biopsied. - Normal examined duodenum. Biopsied. Recommendation: - Await pathology results. - Return patient to [facility] for ongoing care. - Recommend seeing inpatient dietitian prior to discharge - We will arrange outpatient GI follow-up and colonoscopy - Continue on PPI indefinitely and repeat EGD in 3-5 years for Haque's. A. Esophagus, esophagus at 37cm Biopsy: Cardia- and fundic-type mucosa with focal intestinal metaplasia, negative for dysplasia (see Discussion). B. Stomach, Biopsy: Gastric fundic and antral gland mucosa with mild chronic nonspecific gastritis. C. Small Bowel, Duodenum, Biopsy: Duodenal mucosa within normal limits, including preserved villous architecture. Assessment/Plan: Ms. Ruffin is a 87 y.o. 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 Recommend long-term PPI - sheis currently taking 20 mg pantoprazole BID. She could consider repeat EGD in 3 years, but the benefit of this at age 87 is limited. I recommend 40 mg pantoprazole once daily taken with correct timing. We discussed getting pH impedence testing on her current dose of PPI to ensure no breakthrough reflux, particularly as there is some concern it is connected to her belching concerns. #Excessive supragastric belching - frequency and timing fluctuates but often in the AM upon rising,at dinner, and when laying down at night. Most troublesome is when a burp seems to get stuck in herabdomen. We discussed there may be a peptic acid component which we could likely clarify by doing pH impedence on her current dose of PPI. However, I have a greater suspicion for functional belching given her symptoms will go away for up to 3 months at a time and are sometimes triggered by non-GI things (noises, etc). We discussed diaphragmatic breathing as a tool for belching, and discussed the low likelihood of a neuromodulating medication to be helpful for this symptoms. Abby will let me know if she wants to proceed with pH testing. Recommendations Diagnostics #Could consider pH impedence testing performed ON 20 mg BID pantoprazole OR 40 mg once daily pantoprazole to establish whether there is breakthrough reflux and whether she had belching during the test period. Abby defers this for now but will let me know if she wants to pursue it. Larios pH testing is contraindicated for her due to her blood thinner. Therapeutics #Continue to take pantoprazole daily - either 20 mg twice daily, taken 30-60 minutes before the first and last meals of the day or (my preference) - 40 mg once daily, taken 30-60 minutes before the first meal of the day #DIAPHRAGMATIC BREATHING TO TREAT BELCHING Place one hand on the belly and one on the chest. Slowly breath in (inhale) through the nose. Only the hand on the belly should move out, and the hand on the chest should move minimally. Then slowly breath out (exhale) through the mouth. Each breath should be slow and complete. Try to breath in for 4 seconds, hold for 1 second, then breath out for 8 seconds. Do these exercises for 10 minutes in the morning. Then do these exercises 3 minutes before every meal, taking occasional deep breaths throughout the meal, and then continuing the exercises for 30 minutes after each meal. Reference: Am J Gastroenterol. 2016;111(7):1007. Tips to avoid swallowing excessive air (Aerophagia) to minimize burping, bloating, and excessive gas Changing our Eating Habits. Consume food and drink slowly. One of the most effective ways to keep yourself from swallowing air is to eat your food and drink beverages slowly. Try to take 3 to 5 seconds with each bite and space out your sips. Relax while you are eating, as stress can cause you to eat food too quickly. Chewing your food fully before swallowing will also help keep air out when you swallow. Avoid straws, if possible. They will make you drink faster than you should, and can pull airup with them Stay away from carbonation. Carbonated beverages contain carbon dioxide, which is a major componentof air. Drinking them will be similar to drinking a great deal of air all at once. If your goal is to avoid burping, this is one of the most important steps you can take. Beer and sparkling wine, while not artificially carbonated, can also worsen symptoms. Follow Up #No follow up needed unless she gets pH testing, to discuss results. Happy to see Abby anytime. Due to the consultative nature of our practice, the patient should continue to work with primary care provider as the primary point of contact for urgent issues, medication refills and adjustments asneeded for continuity of care purposes in between visits to our center based on the recommendationsabove. The patient was located in [place] at the time of this visit. Total time spent on encounter today: 60 minutes Time spent reviewing records prior to this encounter on day of appointment: 5 minutes Time spent during encounter with patient including counselin minutes Time spent documenting encounter after office visit on day of appointment: 5 minutes Olga Melgar APRN [facility] 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
--- OUTSIDE RECORDS SUMMARY | 2023-12-12 09:42 | XMS_ITS | Encounter Summary ---
Author Organization [facility] [place] [address] Care Team Providers Care Supervisor Pressing Department Name Role Phone Candie Skaggs MD Primary Care Provider [phone] Reason for Visit * Reason Onset Date Comments Request For Record 10/13/2023 [facility] - EGD (from 5 or 6 years ago) Encounter Details Date Type Department Care Team (Late st Contact Info) Description 10/13/2023 [place] [phone] Katharina Martin, TAMI Request For Record ([facility] - EGD (from 5 or 6 years ago)) Social History Tobacco Use Types Packs/Day Years Used Date Smoking Tobacco: Former Cigarettes 0.5 3 Smokeless Tobacco: Former Quit: 06/22/1979 Alcohol Use Standard Drinks/Week Comments Yes 2 (1 standard drink = 0.6 oz pur e alcohol) [facility] Utilities Answer Date Recorded In the [...] were you homeless or living in a prison (including now)? No 10/13/2023 DH IPV Inpatient [...] Martin CMA - 10/13/2023 8:31 AM EDT [place] [address] To whom it may concern: THIS IS [...] Ruffin Patient : 1935 Thank you, Katharina Dairy Associate [facility] [place] [id number] documented in this encounter Plan of Treatment Not on file documented as of this encounter Visit Diagnoses Not on filedocumented in this encounter Care Teams Supervisor Pressing Department Relationship Specialty Start Date End Date Candie Skaggs MD [address] [place] [address] PCP - General Family Medicine 03/19/19 documented as of this encounter
--- OUTSIDE RECORDS SUMMARY | 2023-12-12 09:42 | XMS_ITS | Clinical Summary ---
Author Organization [facility] [place] [address] Care Team Providers Care Gas Fitter Helper Name Role Phone Candie Skaggs MD Primary Care Provider [phone] Allergies Active Allergy Reactions Criticality Noted Date [...] ONE TABLET BY MOUTH EVERY MORNING Active losartan (COZAAR) 100 mg Tablet losartan [...] daily as needed. 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 10/14/2023 Orders Only Gastroenterology at [place] [id number] Benita Mclean MD Functional dyspepsia 10/13/2023 10:14 AM EDT Anesthesia Event Gastroenterology at [place] [id number] Guilherme Alvarado MD 10/13/2023 10:00 AM EDT - 10/13/2023 10:45 AM EDT Surgery Gastroenterology at [place] [id number] Geovanni Bell MD EGD WITH BIOPSY (WRVU 2.39) 10/13/2023 Orders [place] [address] Benita Mclean MD Functional dyspepsia 10/13/2023 [place] [address] Katharina Martin CMA Request For Record ([facility] - EGD (from 5 or 6 years ago)) 10/11/2023 1:39 PM EDT - 10/13/2023 4:00 PM EDT Hospital Encounter Hematology/Oncolog y Unit Level 1 [place] [address] Karla Faria MD Daniel, Nicholas, DO Etiwy, Muhammad, MD Singh, Gurbakhshish, MD Upper abdominal pain; Hypertensive urgency Discharge Disposition: Home 10/11/2023 Travel from Last 3 Months Immunizations Name Administration Dates Next Due Hepatitis A Adult (Havrix, Vaqta) 10/14/2014 Hepatitis A, Unspecified Formulation 02/03/2006 Hepatitis B, Unspecified Formulation 05/08/2009 Influenza (Fluzone HD) Trivalent High Dose 12/29 Pneumococcal 23-Valent Polys accharide (Pneumovax 23) 07/15/2012 Polio Inactivated (IPOL) 09/08/2006,03/10/2006,1 04/06/2005 Td Adult (not absorbed) 02/03/2006 Tdap (Adacel, Boostrix) 07/15/2012 Typhoid Live, Oral 10/14/2014,02/03/2006 Typhoid, VICP 04/15/2022 Zoster LIVE (Zostavax) 05/08/2009 Social History Tobacco Use Types Packs/Day Years Used Date Smoking Tobacco: Former Cigarettes 0.5 3 Smokeless Tobacco: Former Quit: 06/22/1979 Tobacco Cessation:Counseling Given: Not Answered Alcohol Use Standard Drinks/Week Comments Yes 2 (1 standard drink = 0.6 oz pur e alcohol) [facility] Utilities Answer Date Recorded In the past 12 months has [employer], oil, or water [facility] threatened to shut off services in your [...] any time in the past 12 m [facility], were you homeless or living in a snf (including now)? No 10/13/2023 DH IPV Inpatient [...] 10/11/2023 1:33 PM EDT Plan of Treatment Health Maintenance Due Date Last Done Comments Advance Directive 11/07/1990 Bone Density Scan 11/07/2000 Zoster vaccine (2 of 3) 07/03/2009 05/08/2009 Pneumoccocal Vaccine: 65+ (2 of 2 - PCV) 07/15/2013 07/15/2012 Tetanus/Diphtheria/Pertussis Vaccines (2 - Td or Tdap) 07/15/2022 07/15/2012, 02/03/2006 Covid-19 Vaccine (3 - season) 10/19/202312/2021, 12/12/2020 Influenza (Flu) vaccine (1 o f 1 - Influenza standard series) 10/19/2023 12/29/2018 Procedures Procedure Name Priority Date/Time Associated Diagnosis Comments GIARDIA/CRYPTOSPORID IUM ANTIGENS ([facility]/CGP/APD/NLH) Routine 10/13/2023 3:50 PM EDT ECHO COMPLETE Routine 10/13/2023 12:52 PM EDT Hypertensive urgency SURGICAL PATHOLOGY Routine 10/13/2023 10 :26 AM EDT Upper Gi Endoscopy, Biopsy (70868) 10/13/2023 10:13 AM EDT Wt loss UPPER [...] PM EDT URINALYSIS BEAKER MICROSCPIC REFLEX EXAM ([facility]) STAT 10/11/2023 2:54 PM EDT URINALYSIS MICROSCOPIC WITH REFLEX TO CULTURE STAT 10/11/2023 2:54 PM EDT URINALYSIS WITH REFLEX CULTURE STAT 10/11/2023 2:54 PM EDT EKG 12-LEAD STAT 10/11/2023 2:49 PM EDT from Last 3 Months Results * Giardia/Cryptosporidium Antigens ([facility]/CGP/APD/NLH) (10/13/2023 3:50 PM EDT) Giardia Antigen Negative Negative 12:31 PM EDT [facility] Cryptosporidium Antigen Negative Negative 10/14/2023 12:31 PM EDT [facility] Stool STOOL SPECIMEN / Unknown Non Blood Collection / Unknown 10/13/2023 3:50 PM EDT 10/13/2023 4:41 PM EDT Narrative [facility] - 10/14/2023 12:31 PM EDT Examination for other intestinal parasites requires foreign travel history. Examination for other intestinal parasites requires foreign travel history. Valente Bhatt MD MICROBIOLOGY - GEN ERAL ORDERABLES [facility] [place] [address] * ECHO COMPLETE (10/13/2023 12:52 PM EDT) EF 65 HEARTLAB SYSTEM Anatomical Region Laterality Modality Cardiac Other 10/13/2023 12:1 4 PM EDT Narrative 10/13/2023 1:18 PM [place]T [address] [place] [address] ? Echocardiogram Report Name: NELSY RUFFIN ?Study Date: 10/13/2023 12:14 PMBP: 160/72 mmHg ? Patient Location: L1WD 0118 A : 1935 ? Height: 155 cm ? Account: [id number] Age: 87 yrs ? Weight: 64 kg Gender: Female ?BSA: 1.6 m2 Ordering Physician: MORE OROZCO Performed By: LE Palomares Reason For Study: Hypertensive urgency Exam Location: [facility]. Interpretation Summary 1. 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 Procedure Complete-90032. Satisfactory quality. There is sinus bradycardia. Left [...] Note Eri Patino MD - 10/13/2023 [address] [place] [address] Echocardiogram Report Name: NELSY RUFFIN Study Date: 2:14 PMBP: 160/72 mmHg Patient Location: [address] : 1935 Height: 155 cm Account: [id number] Age: 87 yrs Weight: 64 kg Gender: Female BSA: 1.6 m2 Ordering Physician: MORE OROZCO Performed By: LE Palomares Reason For Study: Hypertensive urgency Exam Location: [facility]. Interpretation Summary 1. 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 Procedure Complete-44675. Satisfactory quality. There is sinus bradycardia. Left [...] Case Report Surgical Pathology Report ? Case: [id number] ? Authorizing Provider: ??Geovanni Bell MD ?Collected: ? 10/13/2023 1026 ? Ordering Location: ? Gastroenterology at [facility] ?? Received: ?10/13/2023 1251 ? Pathologist: ? Judie Ovalle MD ? Specimens: ?? A) - Esophagus, esophagus at 37cm ? B) - Stomach ? C) - Small Bowel, Duodenum ? 10/17/2023 12:27 PM EDT [facility] Final Diagnosis A. Esophagus, esophagus at 37cm Biopsy: Cardia- and fundic-type mucosa with focal intestinal metaplasia, negative for dysplasia (see Discussion). B. Stomach, Biopsy: Gastric fundic and antral gland mucosa with mild chronic nonspecific gastritis. C. Small Bowel, Duodenum, Biopsy: Duodenal mucosa within normal limits, including preserved villous architecture. 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 10/17/2023 12:27 PM [facility] Additional Studies Task ID IHC/Special Stains Result Comments B1-2 H pylori Negative 10/17/2023 12:27 PM [facility] Disclaimer(s) Formalin-fixed, paraffin-embedded tissue sections are [...] and other diagnostic tests. 10/17/2023 12:27 PM [facility] Clinical Information A. Esophagus, esophagus at 37cm Rule out Haque's B. Stomach, Rule out Helicobacter pylori C. Small Bowel, Duodenum, Rule out celiac 10/17/2023 12:27 PM [facility] Gross Description A. Esophagus, esophagus at [...] 1 cassette labeled C1. 10/17/2023 12:27 PM [facility] Result Note Routine 10/17/2023 12:27 PM EDT [facility] Tissue ESOPHAGEAL STRUCTURE / Unknown 10/13/2023 10:26 AM EDT 10/13/2023 12:51 PM EDT Comment:Pre-op diagnosis: Wt loss Tissue specimen (specimen) STOMACH STRUCTURE / Unknown 10/13/2023 10:28 AM EDT 10/13/2023 12:51 PM EDT Comment:Pre-op diagnosis: Wt loss Tissue specimen (specimen) DUODENAL STRUCTURE / Unknown 10/13/2023 10:28 AM EDT 10/13/2023 12:51 PM EDT Comment:Pre-op diagnosis: Wt loss Geovanni Bell MD PATHOLOGY/CYTOLOGY O DINORA [facility] [place] [address] * UPPER GI ENDOSCOPY (10/13/2023 9:44 AM EDT) UPPER GI ENDOSCOPY [facility] Endoscopy ___ Procedure Date: 10/13/2023 9:44 AM ? Patient Name: Nelsy Ruffin ? Date of : 1935 ? Age: 87 ? Order #: [id number] ? Instrument Name: [id number] ? ___ Procedure: ? Upper GI endoscopy Indications: ? Chronic dyspepsia and GERD; recent ? 8lb weight loss. Providers: ? Geovanni Bell, Benita Mclean, ? Nickolas Nicolas MD: ?Valente Bhatt Medicines: [...] classified as Haque's stage C0-M1 ? per Slayden criteria. Biopsied. ? - Normal stomach. Biopsied. [...] 9.50 x10(3)/mc L 10/13/2023 4:30 AM EDT [facility] Red Blood Cell 3.68(L) 4.00 - 5.21 x10(6)/mc L 10/13/2023 4:30 AM EDT [facility] Hemoglobin 11.8 11.7 - 15.5 g/dL 10/13/2023 4:30 AM T [facility] Hematocrit 34.6(L) 35.7 - 45.8 % 10/13/2023 4:30 AM EDT [facility] Mean Cell Volume 94.0 82.6 - 94.4 fL 10/13/2023 4:30 AM T [facility] Mean Cell Hemoglobin 32.1(H) 27.1 - 32.0 pg 10/13/2023 4:30 AM [facility] Mean Cell Hemoglobin Concentration 34.1 31.7 - 35.0 g/dL 10/13/2023 4:30 AM EDT [facility] Platelet 240 145 - 357 x10(3)/mc L 10/13/2023 4:30 AM [facility] Mean Platelet Volume 10.3 7.6 - 12.9 fL 10/13/2023 4:30 AM T [facility] RDW Standard Deviation 43.8 37.0 - 46.0 fL 10/13/2023 4:30 AM [facility] RDW coefficient of variation 12.8 11.5 - 14.1 % 10/13/2023 4:30 AM EDT [facility] NRBC% auto 0.0 % 10/13[facility]2023 4:[facility] NRBC Absolute 0.00 0.00 - 0.00 x10(3)/mc L 10/13/2023 4:30 AM [facility] Neutrophil % 65.4 % 10/13/2023 4:30 AM [facility] Neutrophil Absolute (ANC) - Automated 4.13 1.70 - 6.10 x10(3)/mc L 10/13/2023 4:30 AM [facility] Lymph % 26.1 % 10/13/2023 4:30 AM [facility] Lymph Absolute 1.65 0.90 - 3.20 x10(3)/mc L 10/13/2023 4:30 AM [facility] Monocyte % 6.2 % 10/13/2023 4:30 AM [facility] Monocyte Absolute 0.39 0.30 - 0.90 x10(3)/mc L 10/13/2023 4:30 AM [facility] Eos % 1.6 % 10/13/2023 4:30 AM [facility] Eos Absolute 0.10 0.00 - 0.40 x10(3)/mc L 10/13/2023 4:30 AM [facility] Basophil % 0.5 % 10/13/2023 4:30 AM [facility] Baso Absolute 0.03 0.00 - 0.10 x10(3)/mc L 10/13/2023 4:30 AM [facility] Immature Gran % 0.2 % 4:30 AM [facility] Immature Gran Absolute 0.01 0.00 - 0.04 x10(3)/mc L 10/13/2023 4:30 AM [facility] Blood VENOUS BLOOD SPECIMEN / Unknown IP Care Team Draw / Unknown 10/13/2023 4:07 AM EDT 10/13/2023 4:23 AM EDT More Orozco MD HEMATOLOGY ORDERABLE S Performing Organization Address City/[facility]/ZIP Co de Phone Number [facility] [place] [address] * Magnesium (10/13/2023 4:07 AM EDT) Only the most recent of2 resultswithin the time period is included. Pathologist [facility] Magnesium 0.76 0.69 - 1.07 mMol/L 10/13/2023 4:55 AM EDT [facility] Blood VENOUS BLOOD SPECIMEN / Unknown IP Care Team Draw / Unknown 10/13/2023 4:07 AM EDT 10/13/2023 4:23 AM EDT More Orozco MD CHEMISTRY ORDERABLES Performing Organization Address [facility] Co de Phone Number [facility] [place] [address] * (ABNORMAL) Basic Metabolic Panel (10/13/2023 4:07 AM EDT) Only the most recent of3 resultswithin the time period is included. [facility] Glucose 115 65 - 199 mg/dL 10/13/2023 4:55 AM EDT [facility] Comment:Glucose Concentratio n >=200 mg/dL plus symptoms is consistent with Diabetes Mellitus. Blood Urea Nitrogen 10 8 - 18 mg/dL 10/13/2023 4:55 AM EDT [facility] Creatinine 0.95 0.70 - 1.20 mg/dL 10/13/2023 4:55 AM EDT [facility] Sodium 142 135 - 145 mMol/L 10/13/2023 4:55 AM EDT [facility] Potassium 3.2(L) 3.5 - 5.0 mMol/L 10/13/2023 4:55 AM EDT [facility] Chloride 109(H) 98 - 107 mMol/L 10/13/2023 4:55 AM EDT [facility] Carbon Dioxide 20(L) 22 - 31 mMol/L 10/13/2023 4:55 AM EDT [facility] Anion Gap 13 5 - 15 mMol/L 10/13/2023 4:55 AM EDT [facility] Calcium 9.3 8.5 - 10.5 mg/dL 10/13/2023 4:55 AM EDT [facility] Est Glomerular Filtration Rate - Female 58 mL/min/1. 73 m?? 10/13/2023 4:55 AM EDT [facility] Comment: This patient's estimated [...] AM EDT More Orozco MD CHEMISTRY ORDERABLES [facility] [place] [address] * Scan Doc: Telemetry Strips (10/12/2023 8:33 PM EDT) Only the most recent of3 resultswithin the time period is included. Narrative 10/12/2023 8:33 PM EDT Ordered by an unspecified provider. Scanning Provider MEDIA MGR SCAN EXT O RDR/RSLT * Phosphorus (10/12/2023 5:09 AM EDT) Phosphorus 3.4 2.5 - 4.5 mg/dL 10/12/2023 5:46 AM EDT [facility] Blood VENOUS BLOOD SPECIMEN / Unknown IP Care Team Draw / Unknown 10/12/2023 5:09 AM EDT 10/12/2023 5:17 AM EDT More Orozco MD CHEMISTRY ORDERABLES [facility] [place] [address] * (ABNORMAL) Hepatic Function Panel (10/12/2023 5:09 AM EDT) Only the most recent of2 resultswithin the time period is included. Albumin 3.9 3.2 - 5.2 g/dL 10/12/2023 5:46 AM EDT [facility] Aspartate Aminotransferase 15 <=30 unit/L 10/12/2023 5:46 AM EDT [facility] Alanine Aminotransferase 14 0 - 30 unit/L 10/12/2023 5:46 AM EDT [facility] Alkaline Phosphatase 46 35 - 105 unit/L 10/12/2023 5:46 AM EDT [facility] Bilirubin, Total 1.4(H) <=1.3 mg/dL 10/12/2023 5:46 AM EDT [facility] Bilirubin, Direct 0.2 0.0 - 0.3 mg/dL 10/12/2023 5:46 AM EDT [facility] Protein, Total 6.3 6.1 - 8.0 g/dL 10/12/2023 5:46 AM EDT [facility] Blood VENOUS BLOOD SPECIMEN / Unknown IP Care Team Draw / Unknown 10/12/2023 5:09 AM EDT 10/12/2023 5:17 AM EDT More Orozco MD CHEMISTRY ORDERABLES [facility] [place] [address] * (ABNORMAL) Troponin-T, Joseph Sensitivity 3 Hour (10/11/2023 6:17 PM EDT) Troponin-T, High Sensitivity 15(H) <=14 ng/L 10/11/2023 6:52 PM EDT [facility] Comment: This patient's troponin [...] troponin value can be found in the [facility] Laboratory Test Catalog Troponin - https://[facility] systemTable8.testcatalog.org/catalogs/565/files/01055 Reference: Fourth Bushnell Definition of Myocardial Infarction. Journal of the [place] College [employer]iology 2018;72:9616-3685 Troponin-T, HS 3 hr delta 2 ng/L 10/11/2023 6:52 PM EDT [facility] Comment:The 3 hour Troponin T delta value is the absolute difference between the Troponin T concentrations of the initial and subsequent sample collected between 2 h: 45 min and 6 h following the initial collection Blood VENOUS BLOOD SPECIMEN / Unknown IP Care Team Draw / Unknown 10/11/2023 6:17 PM EDT 10/11/2023 6:23 PM EDT Karla Faria MD CHEMISTRY ORDERABLES [facility] [place] [address] * TSH (10/11/2023 6:17 PM EDT) Thyroid Stimulating Hormone 1.63 0.27 - 4.20 mcIU/mL 10/12/2023 1:15 AM EDT [facility] Comment: Reference Interval (mcIU/mL): ?? Females: ? First Trimester: 0.23-3.88 ? Second Trimester: 0.22-3.90 ? Third Trimester: 0.44-4.66 Blood VENOUS BLOOD SPECIMEN / Unknown IP Care Team Draw / Unknown 10/11/2023 6:17 PM EDT 10/11/2023 6:23 PM EDT More Orozco MD CHEMISTRY ORDERABLES Performing Organization Address City/[facility]/ZIP Co de Phone Number [facility] [place] [address] * Lipase (10/11/2023 6:17 PM EDT) Only the most recent of2 resultswithin the time period is included. Lipase 29 0 - 60 unit/L 10/12/2023 1:15 AM EDT [facility] Blood VENOUS BLOOD SPECIMEN / Unknown IP Care Team Draw / Unknown 10/11/2023 6:17 PM EDT 10/11/2023 6:23 PM EDT More Orozco MD CHEMISTRY ORDERABLES Performing Organization Address City/[facility]/ZIP Co de Phone Number [facility] [place] [address] * (ABNORMAL) Troponin-T, High Sensitivity 1 Hour (10/11/2023 3:59 PM EDT) Troponin-T, High Sensitivity 16(H) <=14 ng/L 10/11/2023 4:32 PM EDT [facility] Comment: This patient's troponin [...] troponin value can be found in the [facility] Laboratory Test Catalog Troponin - https://[facility] word health systemTable8.testcatalog.org/catalogs/565/files/76898 Reference: Fourth Bushnell Definition of Myocardial Infarction. Journal of the [place] College of Cardiology 2018;72:0333-4330 Troponin-T, HS 1 hr delta 1 ng/L 10/11/2023 4:32 PM EDT [facility] Comment:The 1 hour Troponin T delta value is the absolute difference between the Troponin T concentrations of the initial and subsequent sample collected between 45 - 120 minutes following the initial collection. Blood VENOUS BLOOD SPECIMEN / Unknown Venipuncture / Unknown 10/11/2023 3:59 PM EDT 10/11/2023 4:05 PM EDT Karla Faria MD CHEMISTRY ORDERABLES Performing Organization Address City/State/[facility] Co de Phone Number [facility] [place] [address] * CT Angiogram Chest Abdomen Pelvis w Contrast (10/11/2023 3:44 PM EDT) WORKSTATION ID [id number] RAD Anatomical Region Laterality Modality Abdomen, Chest [...] who have questions please contact the health career consultant that requested your imaging first. ? Narrative [...] and of normal caliber. No dissection. Scattered [id number] atheromatous plaque is noted. Celiac: Patent. No [...] and of normal caliber. No dissection. Scattered [id number] atheromatous plaque is noted. Celiac: Patent. No [...] patients who have questions please contactthe health career consultant that requested your imaging first. Karla Faria MD IMG CT ORDERABLES * (ABNORMAL) Troponin-T, High Sensitivity (10/11/2023 3:01 PM EDT) [facility] Troponin-T, High Sensitivity Initial 17(H) <=14 ng/L 10/11/2023 3:53 PM EDT [facility] Comment: This patient's troponin [...] troponin value can be found in the [facility] Laboratory Test Catalog Troponin - https://one-.testcatalog.org/catalogs/565/files/39688 Reference: Fourth Bushnell Definition of Myocardial Infarction. Journal of the [place] College of Cardiology 2018;72:8707-5924 Blood VENOUS BLOOD SPECIMEN / Unknown Venipuncture / Unknown 10/11/2023 3:01 PM EDT 10/11/2023 3:09 PM EDT Karla Faria MD CHEMISTRY ORDERABLES Performing Organization Address City/State/[facility] Co de Phone Number [facility] [place] [address] * (ABNORMAL) Hemoglobin A1c (10/11/2023 3:01 PM EDT) Hemoglobin A1c 6.1(H) 4.3 - 5.6 % 10/12/2023 1:06 AM EDT [facility] Comment: Per ADA guidelines, [...] red blood cell turnover may not be administrative representative of glycemic control. Reference Interval: 4.3 - 5.6% 5.7 - 6.4%: Consistent with prediabetes >=6.5%: Consistent with diagnosis of diabetes mellitus Estimated Average Glucose 10/12/2023 1:06 AM EDT [facility] Comment:Not Calculated. Blood VENOUS BLOOD SPECIMEN / Unknown Venipuncture / Unknown 10/11/2023 3:01 PM EDT 10/11/2023 3:09 PM EDT Narrative [facility] - 10/12/2023 1:06 AM EDT Estimated average glucose (eAG) is calculated from the equation described in: Malvin HERNANDEZ, Jamal J, Janina R, et al. ??Translating the A1C assay into estimated average glucose values. ??Diabetes Care 2008:31(8):3585-4186. Additional resources are available on the ADA website (diabetes.org). More Orozco MD CHEMISTRY ORDERABLES Performing Organization Address City/State/[facility] Co de Phone Number [facility] [place] [address] * (ABNORMAL) Urinalysis Microscopic Reflex to Culture (10/11/2023 2:54 PM EDT) Bacteria, Urine None None /HPF 3:52 PM EDT [facility] RBC, Urine 5(H) 0 - 4 /HPF 10/11/2023 3:52 PM EDT [facility] WBC, Urine 0 0 - 5 /HPF 10/11/2023 3:52 PM EDT [facility] Squamous Epithelial Cells, Urine 1 <5 /HPF 10/11/2023 3:52 PM EDT [facility] Hyaline Casts, Urine 0 0 - 2 /LPF 10/11/2023 3:52 PM EDT [facility] Comment 10/11/2023 3:52 PM EDT [facility] Comment:Interpret results wi th caution, microscopic results are from a suboptimal specimen. Urine URINE SPECIMEN OBTAINED BY CLEAN CATCH PROCEDURE / Unknown Non Blood Collection / Unknown 10/11/2023 2:54 PM EDT 10/11/2023 3:09 PM EDT Karla Faria MD URINE ORDERABLES Performing Organization Address [facility] Co de Phone Number [facility] [place] [address] * Urinalysis Microscopic with Reflex to Culture (10/11/2023 2:54 PM EDT) Urine URINE SPECIMEN OBTAINED BY CLEAN CATCH PROCEDURE / Unknown Non Blood Collection / Unknown 10/11/2023 2:54 PM EDT 10/11/2023 3:09 PM EDT Karla Faria MD URINE ORDERABLES Performing Organization Address City/[facility]/ZIP Co de Phone Number [facility] [place] [address] * (ABNORMAL) Urinalysis with reflex Culture (10/11/2023 2:54 PM EDT) Glucose, Urine Dipstick Negative Negative 10/11/2023 3:52 PM EDT [facility] Protein, Urine Dipstick Negative Negative 10/11/2023 3:52 PM EDT [facility] Bilirubin, Urine Dipstick Negative Negative 10/11/2023 3:52 PM EDT [facility] Comment:Clinical correlation required for positive Urine Bilirubin results as false positive may occur with some drugs and drug related products. If a false positive is suspected a serum total bilirubin should be considered if clinically indicated. Urobilinogen, Urine Dipstick Normal Normal, 0.2 mg/dL, 1.0 mg/dL 10/11/2023 3:52 PM EDT [facility] pH, Urine (dipstick) 7.0 5.0 - 8.0 10/11/2023 3:52 PM EDT [facility] Blood, Urine Dipstick Moderate(A) Negative 10/11/2023 3:52 PM EDT [facility] Ketone, Urine Dipstick Negative Negative 10/11/2023 3:52 PM EDT [facility] Nitrite, Urine Dipstick Negative Negative 10/11/2023 3:52 PM T [facility] Leukocytes, Urine Dipstick Negative Negative 10/11/2023 3:52 PM [facility] Specific [place] Urine Automated 1.007 1.005 - 1.030 10/11/2023 3:52 PM EDT [facility] Appearance, Urine Dipstick Clear Clear 10/11/2023 3:52 PM [facility] Color, Urine Dipstick Yellow Yellow, Dark Yellow 10/11/2023 3:52 PM [facility] Urine URINE SPECIMEN OBTAINED BY CLEAN CATCH PROCEDURE / Unknown Non Blood Collection / Unknown 10/11/2023 2:54 PM EDT 10/11/2023 3:09 PM EDT Karla Faria MD URINE ORDERABLES [facility] [place] [address] * EKG 12 Lead (10/11/2023 2:49 PM EDT) Ventricular rate 53 BPM MUSE SYSTEM Atrial Rate 53 BPM MUSE SYSTEM P-R Interval 176 ms MUSE SYSTEM QRS Duration 70 ms MUSE SYSTEM Q-T Interval 428 ms MUSE SYSTEM QTC Calculated (Bezet) 401 ms MUSE SYSTEM Calculated P [place] 65 degrees MUSE SYSTEM Calculated R [place] 6 degrees MUSE SYSTEM Calculated T [place] 51 degrees MUSE SYSTEM INTERPRETATION Sinus bradycardia [...] by: Patient Content of discussion: Feels benefits outwighs r isks * Full Code Date Activated Date Inactivated Comments 06/21/2010 5:15 AM 06/21/2010 6:58 PM Question Answer Comments Order Status: Initial Order Does patient have decision m aking capacity? Yes, Order is based on Patients wishes. Care Teams [employer] Relationship Specialty Start Date End Date Candie Skaggs MD [address] [place] [address] PCP - General Family Medicine 03/19/19
--- OUTSIDE RECORDS SUMMARY | 2023-12-12 09:42 | XMS_ITS | Encounter Summary ---
Author Organization [facility] [place] [address] Care Team Providers Care Kettle Fry Cook Operator Name Role Phone Kumar Schultz MD Primary Care Provider [phone] Reason for Visit * Reason Comments Abdominal Pain Fatigue * Auth/Cert (Routine) Specialty Diagnoses / Procedures Referred By Contac t Referred To Contact Diagnoses Upper abdominal pain Hypertensive [place] [address] [facility] Referral ID Status Reason Start Date Expiration Date Visits Re quested Visits Authorized [id number] 1 1 Encounter Details Date Type Department Care Team (Late st Contact Info) Description 10/13/2023 10:00 AM EDT - 10/13/2023 10:45 AM EDT Surgery [place] [address] Geovanni Bell MD [facility] [place] [address] EGD WITH BIOPSY (WRVU 2.39) Social History Tobacco Use Types Packs/Day Years Used Date Smoking Tobacco: Former Cigarettes 0.5 3 Smokeless Tobacco: Former Quit: 06/22/1979 Alcohol Use Standard Drinks/Week Comments Yes 2 (1 standard drink = 0.6 oz pur e alcohol) [facility] Utilities Answer Date Recorded In the [...] were you homeless or living in a half-way (including now)? No 10/13/2023 DH IPV Inpatient [...] Nelsy Ruffin Patient Age: 87 y.o. Language: Italian Race: White Ethnicity: Not nor Admit date: [...] contact your inpatient physician through the [facility] Physical Therapy Supervisor . Issues afterhours and on weekends [...] to have hypertensive emergency, admitted to [facility] for further management. CT Angiogram Chest Abdomen [...] 10/11/2023 3:44 PM) Result Value WORKSTATION ID [id number] Impression 1. No aortic dissection or acute [...] who have questions please contact the health home care consultant that requested your imaging first. Electronically signed by: ERLIN SAINI MD, [facility] ([phone]), at 10/11/2023 4:11 PM EGD 10/12 Impression: - Esophagogastric landmarks identified. 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 Biopsied. - Normal stomach. Biopsied. - [...] Covid-19 Vaccine 12/12/2020 Moderna Covid-19 Monovalent 12Yr+ (Management Services Technician 100mcg) 04/27/2021 Pneumococcal Polysaccharide (Pneumovax 23) 07/15/2012 TD Adult 02/03/2006 Tdap 07/15/2012 Typhoid Live, Oral 02/03/2006, 10/14/2014 Typhoid, VICP 04/15/2022 Zoster (Zostavax) LIVE 05/08/2009 Discharge Medications: Your Medications New Medications Dose Details amLODIPine 5 mg tablet Commonly known as: Norvasc Take 1 tablet by mouth daily. 5 mg Quantity: 90 tablet Refills: 3 xsdrjsxjv-dmsobnhog-yv-mag-sim [id number] mg/30 mL Suspension Take 5 mLs by [...] Your Primary Care Provider: Kumar Schultz MD [phone] For questions regarding this document or issues relating to this hospitalization on the Medical Service, please contact your inpatient physician through the [facility] Physical Therapy Supervisor . Issues afterhours and on weekends [...] the day after the procedure, use an ykla-hhj-zuhqdoe spray to numb your throat. Sucking on [...] occurs, please contact your Doctor. Please call [phone] before 8pm Mon-Fri with problems, questions or concerns. If you call after 8pm or on weekends, call the Hospital at [phone] and ask to speak to the Electronics Commodity Manager dairy nutrition consultant and the bleaching machine operator will contact that person for you. [...] any problems. Where can you learn more? [facility] View your After Visit Summary and more online at [email or web address] If you would like to provide feedback about your hospital experience, please call the Office of Patient and Family Relations at . If you have received this After Visit Summary in error, please immediately return it in person to the department, or notify the [facility] Privacy Office by calling toll free at between the hours of 8AM and 5PM to arrange for our retrieval of the documents at no cost to you. Content Version: 12.2 ?? 5201-6851 [employer]. Care instructions adapted under license by [facility]. If you have questions about a medical condition or this instruction, always ask your healthcare professional. [employer] disclaims any warranty or liability for your [...] the day after the procedure, use an fskh-vrw-sviwdfe spray to numb your throat. Sucking on [...] occurs, please contact your Doctor. Please call [phone] before 8pm Mon-Fri with problems, questions or concerns. If you call after 8pm or on weekends, call the Hospital at [phone] and ask to speak to the Electronics Commodity Manager dairy nutrition consultant and the bleaching machine operator will contact that person for you. When should you call for help? Call 501 anytime you think you may need emergency [...] any problems. Where can you learn more? [facility] View your After Visit Summary and more online at [email or web address] If you would like to provide feedback about your hospital experience, please call the Office of Patient and Family Relations at . If you have received this After Visit Summary in error, please immediately return it in person to the department, or notify the [facility] Privacy Office by calling toll free at between the hours of 8AM and 5PM to arrange for our retrieval of the documents at no cost to you. Content Version: 12.2 ?? 4861-8200 [employer]. Care instructions adapted under license by [facility]. If you have questions about a medical condition or this instruction, always ask your healthcare professional. [employer] disclaims any warranty or liability for your [...] the day after the procedure, use an jfix-wie-bwepvhq spray to numb your throat. Sucking on [...] occurs, please contact your Doctor. Please call [phone] before 8pm Mon-Fri with problems, questions or concerns. If you call after 8pm or on weekends, call the Hospital at [phone] and ask to speak to the Electronics Commodity Manager dairy nutrition consultant and the bleaching machine operator will contact that person for you. [...] any problems. Where can you learn more? [facility] View your After Visit Summary and more online at [email or web address] If you would like to provide feedback about your hospital experience, please call the Office of Patient and Family Relations at . If you have received this After Visit Summary in error, please immediately return it in person to the department, or notify the [facility] Privacy Office by calling toll free at between the hours of 8AM and 5PM to arrange for our retrieval of the documents at no cost to you. Content Version: 12.2 ?? 7687-3860 [employer]. Care instructions adapted under license by [facility]. If you have questions about a medical condition or this instruction, always ask your healthcare professional. [employer] disclaims any warranty or liability for your [...] the day after the procedure, use an xclj-gui-dhaqato spray to numb your throat. Sucking on [...] occurs, please contact your Doctor. Please call [phone] before 8pm Mon-Fri with problems, questions or concerns. If you call after 8pm or on weekends, call the Hospital at [phone] and ask to speak to the Electronics Commodity Manager dairy nutrition consultant and the bleaching machine operator will contact that person for you. [...] any problems. Where can you learn more? [facility] View your After Visit Summary and more online at [email or web address] If you would like to provide feedback about your hospital experience, please call the Office of Patient and Family Relations at . If you have received this After Visit Summary in error, please immediately return it in person to the department, or notify the [facility] Privacy Office by calling toll free at between the hours of 8AM and 5PM to arrange for our retrieval of the documents at no cost to you. Content Version: 12.2 ?? 6460-0389 [employer]. Care instructions adapted under license by [facility]. If you have questions about a medical condition or this instruction, always ask your healthcare professional. [employer] disclaims any warranty or liability for your [...] Your Primary Care Provider: Kumar Schultz MD [phone] For questions regarding this document or issues relating to this hospitalization on the Medical Service, please contact your inpatient physician through the [facility] Physical Therapy Supervisor . Issues afterhours and on weekends will be handled by the Hospitalist staff on-call. documented in this encounter Medications at Time of Discharge Medication Sig Dispensed Refills Start Date End Date pantoprazole EC (Protonix) [address] tablet Take 1 tablet by mouth 2 times daily. 90 tablet 3 10/13/2023 hydrocortisone 2.5 % CreamIndications: Dermatitis Apply to affected area of the nose [...] ONE GRAM VAGINALLY TWICE A WEEK 12/16/2019 hydroCHLOROthiazi de (Hydrodiuril) 12.5 mg Tablet hydrochlorothiazide 12.5 mg tablet TAKE ONE TABLET BY MOUTH EVERY MORNING losartan (COZAAR) 100 mg Tablet losartan 100 [...] Tablet Take 10 mg by mouth daily. amLODIPine (Norvasc) 5 mg tablet Take 1 tablet by mouth daily. 90 tablet 3 10/13/2023 10/27/2023 diphenhydrAMINE/a luminum-magnesium hydroxide with simethicone/lidoc abdelrahman (BMX) (6.67 mg-0.83 mg-13.33 mg-1.33 mg/mL) oral liquid Take 5 mLs by mouth 3 times daily. 237 mL 3 10/13/2023 10/27/2023 latanoprost (Xalatan) 0.005 % Drops latanoprost 0.005 % eye drops INSTILL ONE DROP INTO BOTH EYE AT BEDTIME - SHAKE BEFORE USE 10/31/2020 10/27/2023 documented as of this encounter Progress Notes [...] Continuous Scheduled amLODIPine 5 mg Oral Daily iyhkjvsed-izhiztomj-hy-mag-sim 5 mL Oral TID rivaroxaban 10 mg [...] of this encounter: 64.4 kg (142 lb). [place] Body Weight (IBW) (kg): 47.73 Wt Readings [...] interview: 10/12: Nutrition consulted for MST evaluation, publicity writer met with Adriana and her at bedside. Adriana reports epigastric pain and nausea, relying on soup and toast for intake lately. She reports 8# weight loss in recent weeks, though unable to quantify UBW. Unsure what is causing epigastric pain, awaiting EGD results. Offered Ensure to supplement intake, trial sent. Nelsy notes GERD and avoiding spicy foods, tomato sauces, and other foods. Dragline Engineer also suggested follow up with outpatientRD (consider GI if followed up by GI clinic), pt to reach out to provider. Nutrition Focused Physical Exam: Performed (10/13/23 by HD) . Subcutaneous Fat Loss Orbital region: Mild Upper arm region (triceps/biceps): None present Thoracic and Lumbar regions (ribs, lower back, and maxillary line): Not assessed Lean Muscle Loss Scientologist region (temporalis muscle): None present Clavicle bone region (pectoralis major): Mild Dorsal hand (interosseous muscle): Mild Shoulder (deltoid): Mild Scapular bone region (latissimus dorsi, trapezius muscles): Not assessed Thigh region (quadriceps muscle): None present Posterior calf region (gastrocnemius muscle): None present Malnutrition Diagnosis: Not enough data to assess (Laith flores al, JPEN J Parenteral Enteral Nutr. 2011; [...] spent >30 minutes (Day of Discharge Code 36440) involved in the final examination of the [...] with a walker or standby assist with RN/WATER/WASTEWATER PROJECT MANAGER.Patient will possibly have an EGD on 10/11. Pt. Has been NPO since midnight. Action List NPO since midnight Monitor epigastric discomfort Telemetry IVF EGD today * Valente Bhatt MD - 10/12/2023 11:17 AM EDT [facility] Medicine Attending Daily Progress Note Admit [...] Daily potassium chloride 10 mEq Intravenous Q2H pacvmhwpd-oijyaipfm-fc-mag-sim 5 mL Oral BID losartan 100 mg [...] forces of Anteroseptal leads Confirmed by MD CEILS ARMIN ([id number]) on 10/11/2023 3:30:54 PM QTCCALC 401 VASCULAR: No results for input(s): VBTEXTRPT in the last 720 hours. IMAGING: Results for orders placed or performed during the hospital encounter of 10/11/23 CT Angiogram Chest Abdomen Pelvis w Contrast (Exam End: 10/11/2023 3:44 PM) Result Value WORKSTATION ID [id number] Impression 1. No aortic dissection or acute [...] who have questions please contact the health home care consultant that requested your imaging first. Electronically signed by: ERLIN SAINI MD, [facility] ([phone]), at 10/11/2023 4:11 PM OTHER Studies: Assessment: 87 y.o. female with history of HTN, HLD PE on Xarelto, Haque's esophagus, who presents to the ED,reporting a few day hx of worsening epigastric pain with radiation to her back associated with nausea, and inability to tolerate p.o. intake, found to have hypertensive emergency, admitted to [facility] for further management. GI team to take the pt for EGD tomorrow am. NPO at [place]. #NSTEMI likely type II i/s/o hypertensive emergency [...] Goals of Care: Team Pager( Coverage 09/09): #[phone] PCP: Kumar Schultz MD [phone] Attestation: IPI Certification I certify that I am a D-H credentialed attending provider with admitting privileges and that the patient meets or has met medical necessity to require an inpatient IPI level of care meeting a minimumof two midnights or is on the [facility] inpatient only procedure list (status C) due [...] argenis on Tele. VS stable.IVF infusing per APR. Critical K of 3 this morning, notified. [...] disease) K21.9 Hyperlipidemia E78.5 Squamous cell carcinoma [id number] History of SCC (squamous cell carcinoma) of [...] Covid-19 Vaccine 12/12/2020 Moderna Covid-19 Monovalent 12Yr+ (Management Services Technician 100mcg) 04/27/2021 Pneumococcal Polysaccharide (Pneumovax 23) 07/15/2012 [...] Negative Leukocytes, Urine Dipstick Negative Negative Specific [place] Urine Automated 1.007 1.005 - 1.030 Appearance, [...] to have hypertensive emergency, admitted to [facility] for further management. #NSTEMI likely type II [...] Dipstick Negative Leukocytes, Urine Dipstick Negative Specific [place] Urine Automated 1.007 Appearance, Urine Dipstick Clear [...] 10/11/2023 3:44 PM) Result Value WORKSTATION ID [id number] Impression 1. No aortic dissection or acute [...] who have questions please contact the health home care consultant that requested your imaging first. Electronically signed by: ERLIN SAINI MD, [facility] ([phone]), at 10/11/2023 4:11 PM Assessment/plan: Epigastric pain Will attempt PO trial If pain persists and unable to tolerate PO will request admission Care to oncoming team at shift change. Karla Faria MD 10/12/23 0722 * Alexander Carmita Feli, DO - 10/11/2023 2:08 PM EDT ED [...] months and has been seen at hospital hqs-um-eqbvl for evaluation. She was told that she [...] are in agreement with plan. Renae Cooper [facility] [phone] * Initial Assessments - Renae Cooper RN [...] surrogate would be surrogate decision maker per [place] surrogate decision making law. (Only good for 180 days) spouse Geovanni Any patient receiving care in [place] must abide by [place] law. The hierarchy for surrogate decision making [...] (i) The agent with financial power of senior trial attorney or a conservator appointed in accordance [...] were you homeless or living in a half-way (including now)?: No In the past 12 months has the [employer], gas, oil, or water [employer] threatened to shut off services in your [...] DME: none Home Address confirmed as: [address] [facility] [address] Social & Family Supports: All names listed below confirmed with patient as current and correct Extended Emergency Contact Information Primary Emergency Contact: Geovanni Ruffin Address: [place] [address] [facility] Mobile Relation: Spouse Secondary Emergency Contact: Helga [...] Insurance: N/A ; Prescription Coverage: Preferred Pharmacy: [address] [address] [facility] [address] - [facility], [place] - [address] [facility] [address] [facility] [address] Status: Patient is a : No Primary Care Provider confirmed: Kumar Schultz MD [phone] Patient/Caregiver Goals of Treatment: return home Potential [...] coordination of care as indicated. Renae Cooper [facility] [phone] * Consult Note - Xavi Monroe MD [...] in, so she presented to the [facility] ED. In the ED, she was afebrile [...] was normal. She last saw GI at [place] in 2021. Their plan was to put [...] Daily potassium chloride 10 mEq Intravenous Q2H ubjvntfwy-ydomwgqkw-br-mag-sim 5 mL Oral BID losartan 100 mg [...] who have questions please contact the health home care consultant that requested your imaging first. Electronically signed by: ERLIN SAINI MD, [facility] ([phone]), at 10/11/2023 4:11 PM OSH RECORDS: Obtained and personally reviewed CT A/P [...] proceed. Hailee Almanza MD Gastroenterology attending Pager [phone] * Consult Note - Jono Campbell MD - 10/11/2023 10:18 PM EDT CARDIOLOGY CONSULT NOTE Patient Name: Nelsy Ruffin Service: ED ID/Chief Complaint: Ms. Ruffin is an 87 year old lady presenting for abdominal discomfort and vomiting. Cardiology consulted for slightly elevated troponin. Medical Co-morbidities: Hypertension Prior PE HLD History of Present Illness: The patient is with her at the bedside. She says that for the last two weeks she has intermittently had abdominal discomfort and pressure that is relieved by belching. Today this was very uncomfortable prompting the ED visit. While being evaluated in the ED she reported that with the feeling of being bloated there will be apressure like sensation around her xiphoid process. This typically improves after she belches. She has not had any episodes of emesis. She denies black or tarry stools. She also notes that at home she has been hypertensive with her systolic pressures reaching over 200. When her BP reaches over 200 she endorses tingling sensations on the top of her head. In the ED she has intermittently been hypertensive with the highest pressure recorded as 214/91. She is saturating well on room air. Troponin was 17 and 15 after one hour. ECG does not show findings consistent with ischemia. I reviewed her CT chest and she has mild to moderate calcification of the coronary arteries. CT C/A/P did not show evidence of dissection and a small pericardial effusion. The patient reports that she lives at home with her and when she walks up stairs she does not have chest pain or chest pressure symptoms. She is also able to go for walks around her neighborhood without difficulty. Her main limiting factor is when she feels bloated and needs to belch. Meds: Current Facility-Administered Medications: diphenhydrAMINE/aluminum-magnesium hydroxide with simethicone/lidocaine (BMX) (6.67 mg-0.83 mg-13.33 mg-1.33 mg/mL) oral liquid 5 mL, 5 mL, Oral, BID, Carmita Munoz DO, 5 mL at 10/11/23 1454 potassium chloride ER (Klor-Con M) crystal tablet 20 mEq, 20 mEq, Oral, Once, Karla Faria MD Current Outpatient Medications: hydrocortisone 2.5 % Cream, Apply to affected area of the nose twice daily as needed., Disp: 30 g, Rfl: 0 prochlorperazine (Compazine) 5 mg Tablet, Take 1 tablet by mouth every 6 hours as needed for Nausea. (Patient not taking: Reported on 06/10/2022), Disp: 15 tablet, Rfl: 0 calcium carbonate/vitamin D3 (VITAMIN D-3 ORAL), Take by mouth., Disp: , Rfl: estradioL (ESTRACE) 0.01 % (0.1 mg/gram) Cream, estradiol 0.01% (0.1 mg/gram) vaginal cream APPLY ONE GRAM VAGINALLY TWICE A WEEK, Disp: , Rfl: hydroCHLOROthiazide (Hydrodiuril) 12.5 mg Tablet, hydrochlorothiazide 12.5 mg tablet TAKE ONE TABLET BY MOUTH EVERY MORNING, Disp: , Rfl: latanoprost (Xalatan) 0.005 % Drops, latanoprost 0.005 % eye drops INSTILL ONE DROP INTO BOTH EYE AT BEDTIME - SHAKE BEFORE USE, Disp: , Rfl: losartan (COZAAR) 100 mg Tablet, losartan 100 mg tablet TAKE ONE TABLET BY MOUTH EVERY MORNING IF SYSTOLIC BLOOD PRESSURE > 120, Disp: , Rfl: NIFEdipine (Procardia) 10 mg Capsule, nifedipine 10 mg capsule GARCIA CAPSULE AND SWALLOW CONTENTS ONCE IF NEEDED FOR FOR BLOOD PRESSURE OVER 170, Disp: , Rfl: potassium chloride (K-Tab) 20 mEq Tablet Sustained Release, as needed., Disp: , Rfl: valACYclovir (Valtrex) 1 gram Tablet, as needed., Disp: , Rfl: rivaroxaban (Xarelto) 10 mg Tablet, Take 10 mg by mouth daily., Disp: , Rfl: Allergies: Allergies Allergen Reactions Codeine Phosphate Nausea And Vomiting Vitals: Last value Range last 24 hrs Temperature Temp: 36.7 ??C (98.1 ??F) Temp: [36.7 ??C (98.1 ??F)] Heart Rate Heart Rate: 53 Heart Rate: [50-97] Blood Pressure BP: 157/49 BP: (122-214)/(41-91) Respiratory Rate Resp: 23 Resp: [15-27] SpO2 SpO2: 98 % SpO2: [94 %-99 %] Examination: General - No acute distress. Well-groomed/nourished. Speech is normal HEENT - EOMI. No scleral icterus. Noninjected. Moist membranes. Respiratory: Good effort/excursion. Cardiac - RRR Abdomen - Soft, nontender/nondistended Extremities - Warm. No clubbing or cyanosis. Radial Pulses: 2+ B/l Neuro - Limited exam. No deficits. Laboratory: CBC: Recent Labs 10/11/23 1501 WBC 6.04 HGB 12.0 PLATELET 246 Chemistry: Recent Labs 10/11/23 1501 NA 144 K 3.1* CL 107 CO2 23 BUN 14 CREATININE 0.91 GLUCOSE 105 Recent Labs 10/11/23 1501 CALCIUM 9.9 LFT's: Recent Labs 10/11/23 1501 BILITOT 1.1 BILIDIR 0.2 ALBUMIN 4.2 ALKPHOS 51 ALT 16 AST 16 Most Recent TTE 2010 SUMMARY: 1. Left ventricular chamber size, wall [...] See remainder of report for additional findings. Most Recent Cath None ASSESSMENT: Ms. Ruffin is an 87 year old lady presenting for abdominal bloating that is relieved by belching. Cardiology was consulted for a troponin of 17 then 15. In speaking with the patient she reports that the epigastric discomfort and pressure has been occurring for weeks. She also has had this problem previously but it subsided for a time until recurring over the last few weeks. The pain does not worsen with exertion. Her troponin is technically elevated but it is flat. Her ECG is reassuring as is her physical exam. It is reasonable to obtain a TTE tomorrow for assessment of the pericardial effusion. 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 PLAN: Reasonable to obtain TTE tomorrow for assessment of pericardial effusion We will sign off at this time. Please feel free to reach out with further questions or concerns. Jono Campbell MD Agricultural Real Estate Agent * ED Triage - Tex Purcell RN [...] Date/Time Associated Diagnosis Comments GIARDIA/CRYPTOSPORID IUM ANTIGENS ([facility]/CGP/APD/NLH) Routine 10/13/2023 3:50 PM EDT ECHO COMPLETE Routine 10/13/2023 12:52 PM EDT Hypertensive urgency SURGICAL PATHOLOGY Routine 10/13/2023 10 :26 AM EDT Upper Gi Endoscopy, Biopsy (16102) 10/13/2023 10:13 AM EDT Wt loss UPPER [...] PM EDT URINALYSIS BEAKER MICROSCPIC REFLEX EXAM ([facility]) STAT 10/11/2023 2:54 PM EDT URINALYSIS MICROSCOPIC [...] MD MICROBIOLOGY - GEN ERAL ORDERABLES [facility] [place] [address] * ECHO COMPLETE (10/13/2023 12:52 PM EDT) EF 65 HEARTLAB SYSTEM Anatomical Region Laterality Modality Cardiac Other 10/13/2023 12:1 4 PM EDT Narrative 10/13/2023 1:18 PM [place]T [address] [place] [address] ? Echocardiogram Report Name: LALY, NELSY F ?Study Date: 10/13/2023 12:14 PMBP: 160/72 mmHg ? Patient Location: L1WD 0118 A : 1935 ? Height: 155 cm ? Account: [id number] Age: 87 yrs ? Weight: 64 kg Gender: Female ?BSA: 1.6 m2 Ordering Physician: MORE OROZCO Performed By: LE Palomares Reason For Study: Hypertensive urgency Exam Location: [facility]. Interpretation Summary 1. 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 Procedure Complete-[id number]. Satisfactory quality. There is sinus bradycardia. Left [...] Note Eri Patino MD - 10/13/2023 [address] [place] [id number] Echocardiogram Report Name: NELSY RUFFIN Study Date: 2:14 PMBP: 160/72 mmHg Patient Location: [address] : 1935 Height: 155 cm Account: [id number] Age: 87 yrs Weight: 64 kg Gender: Female BSA: 1.6 m2 Ordering Physician: MORE OROZCO Performed By: LE Palomares Reason For Study: Hypertensive urgency Exam Location: [facility]. Interpretation Summary 1. 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 Procedure Complete-[id number]. Satisfactory quality. There is sinus bradycardia. Left [...] Case Report Surgical Pathology Report ? Case: [id number] ? Authorizing Provider: ??Geovanni Bell MD ?Collected: ? 10/13/2023 1026 ? Ordering Location: ? [place] [facility] [place]ceived: ?10/13/2023 125 ? Pathologist: ? Judie Ovalle MD ? Specimens: ?? A) - Esophagus, esophagus at 37cm ? B) - Stomach ? C) - Small Bowel, Duodenum ? 10/17/2023 12:27 PM [facility] Final Diagnosis A. Esophagus, esophagus at 37cm Biopsy: Cardia- and fundic-type mucosa with focal intestinal metaplasia, negative for dysplasia (see Discussion). B. Stomach, Biopsy: Gastric fundic and antral gland mucosa with mild chronic nonspecific gastritis. C. Small Bowel, Duodenum, Biopsy: Duodenal mucosa within normal limits, including preserved villous architecture. 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 10/17/2023 12:27 PM [facility] Additional Studies Task ID IHC/Special Stains Result Comments B1-2 H pylori Negative 10/17/2023 12:27 PM [facility] Disclaimer(s) Formalin-fixed, paraffin-embedded tissue sections [...] and other diagnostic tests. 10/17/2023 12:27 PM [facility] Clinical Information A. Esophagus, esophagus at 37cm Rule out Hqaue's B. Stomach, Rule out Helicobacter pylori C. Small Bowel, Duodenum, Rule out celiac 10/17/2023 12:27 PM [facility] Gross Description A. Esophagus, esophagus [...] PATHOLOGY/CYTOLOGY O RDERABLES [facility] [place] [address] * UPPER GI ENDOSCOPY (10/13/2023 9:44 AM EDT) UPPER GI ENDOSCOPY [facility] Endoscopy ___ Procedure Date: 10/13/2023 9:44 AM ? Patient Name: Nelsy Ruffin ? Date of : 1935 ? Age: 87 ? Order #: [id number] ? Instrument Name: [id number] ? ___ Procedure: ? Upper GI endoscopy [...] classified as Haque's stage C0-M1 ? per Arnold criteria. Biopsied. ? - Normal stomach. Biopsied. [...] GENERAL SURGICAL O RDERABLES Performing Organization Address [facility]/ZIP Co de Phone Number [employer] * Magnesium (10/13/2023 4:07 AM EDT) Magnesium 0.76 0.69 - 1.07 mMol/L 10/13/2023 4:55 AM EDT [facility] Blood VENOUS BLOOD SPECIMEN / Unknown IP Care Team Draw / Unknown 10/13/2023 4:07 AM EDT 10/13/2023 4:23 AM EDT More Orozco MD CHEMISTRY ORDERABLES Performing Organization Address [facility]/ZIP Co de Phone Number [facility] [place] [address] * (ABNORMAL) Basic Metabolic Panel (10/13/2023 4:07 AM EDT) Glucose 115 65 - 199 mg/dL 10/13/2023 4:55 AM EDT [facility] Comment:Glucose Concentratio n >=200 mg/dL plus symptoms is consistent with Diabetes Mellitus. Blood Urea Nitrogen 10 8 - 18 mg/dL 10/13/2023 4:55 AM [facility] Creatinine 0.95 0.70 - 1.20 mg/dL 10/13/2023 4:55 AM [facility] Sodium 142 135 - 145 mMol/L 10/13/2023 4:55 AM [facility] Potassium 3.2(L) 3.5 - 5.0 mMol/L 10/13/2023 4:55 AM [facility] Chloride 109(H) 98 - 107 mMol/L 10/13/2023 4:55 AM [facility] Carbon Dioxide 20(L) 22 - 31 mMol/L 10/13/2023 4:55 AM [facility] Anion Gap 13 5 - 15 mMol/L 10/13/2023 4:55 AM [facility] Calcium 9.3 8.5 - 10.5 mg/dL 10/13/2023 4:55 AM [facility] Est Glomerular Filtration Rate - Female 58 mL/min/1. 73 m?? 10/13/2023 4:55 AM [facility] Comment: This patient's estimated GFR [...] MD CHEMISTRY ORDERABLES [facility] [place] [address] * (ABNORMAL) CBC (with Diff) (10/13/2023 4:07 AM EDT) White Blood Cell 6.31 4.00 - 9.50 x10(3)/mc L 10/13/2023 4:30 AM EDT [facility] Red Blood Cell 3.68(L) 4.00 - 5.21 x10(6)/mc L 10/13/2023 4:30 AM EDT [facility] Hemoglobin 11.8 11.7 - 15.5 g/dL 10/13/2023 4:30 AM [facility] Hematocrit 34.6(L) 35.7 - 45.8 % 10/13/2023 4:30 AM [facility] Mean Cell Volume 94.0 82.6 - 94.4 fL 10/13/2023 4:30 AM [facility] Mean Cell Hemoglobin 32.1(H) 27.1 - 32.0 pg 10/13/2023 4:30 AM [facility] Mean Cell Hemoglobin Concentration 34.1 31.7 - 35.0 g/dL 10/13/2023 4:30 AM [facility] Platelet 240 145 - 357 x10(3)/mc L 10/13/2023 4:30 AM [facility] Mean Platelet Volume 10.3 7.6 - 12.9 fL 10/13/2023 4:30 AM [facility] RDW Standard Deviation 43.8 37.0 - 46.0 fL 10/13/2023 4:30 AM [facility] RDW coefficient of variation 12.8 11.5 - 14.1 % 10/13/2023 4:30 AM [facility] NRBC% auto 0.0 % 10/13/2023 4:30 AM [facility] NRBC Absolute 0.00 0.00 - 0.00 x10(3)/mc L 10/13/2023 4:30 AM EDT [facility] Neutrophil % 65.4 % 10/13/2023 4:30 AM EDT [facility] Neutrophil Absolute (ANC) - Automated 4.13 1.70 - 6.10 x10(3)/mc L 10/13/2023 4:30 AM EDT [facility] Lymph % 26.1 % 10/13/2023 4:30 AM EDT [facility] Lymph Absolute 1.65 0.90 - [...] HEMATOLOGY ORDERABLE S [facility] [place] [place] [address] * Magnesium (10/12/2023 5:09 AM EDT) Pathologist [facility] Magnesium 0.78 0.69 - 1.07 mMol/L 10/12/2023 5:46 AM EDT [facility] Blood VENOUS BLOOD SPECIMEN / Unknown IP Care Team Draw / Unknown 10/12/2023 5:09 AM EDT 10/12/2023 5:17 AM EDT More Orozco MD CHEMISTRY ORDERABLES [facility] [place] [place] [address] * (ABNORMAL) Basic Metabolic Panel (10/12/2023 5:09 AM EDT) Pathologist [facility] Glucose 104 65 - 199 mg/dL 10/12/2023 [...] MD CHEMISTRY ORDERABLES [facility] [place] [id number] * (ABNORMAL) CBC (with Diff) (10/12/2023 5:09 AM EDT) White Blood Cell 5.10 4.00 - 9.50 x10(3)/mc L 10/12/2023 5:21 AM EDT [facility] Red Blood Cell 3.51(L) 4.00 - 5.21 x10(6)/mc L 10/12/2023 5:21 AM EDT [facility] Hemoglobin 11.3(L) 11.7 - 15.5 g/dL 10/12/2023 5:21 AM EDT [facility] Hematocrit 33.2(L) 35.7 - 45.8 % 10/12/2023 5:21 AM EDT [facility] Mean Cell Volume 94.6(H) 82.6 - 94.4 fL 10/12/2023 5:21 AM [facility] Mean Cell Hemoglobin 32.2(H) 27.1 - 32.0 pg 10/12/2023 5:21 AM [facility] Mean Cell Hemoglobin Concentration 34.0 31.7 - 35.0 g/dL 10/12/2023 5:21 AM [facility] Platelet 229 145 - 357 x10(3)/mc L 10/12/2023 5:21 AM [facility] Mean Platelet Volume 10.2 7.6 - 12.9 fL 10/12/2023 5:21 AM [facility] RDW Standard Deviation 43.5 37.0 - 46.0 fL 10/12/2023 5:21 AM [facility] RDW coefficient of variation 12.7 11.5 - 14.1 % 10/12/2023 5:21 AM [facility] NRBC% auto 0.0 % 10/12/2023 5:21 AM [facility] NRBC Absolute 0.00 0.00 - 0.00 x10(3)/mc L 10/12/2023 5:21 AM [facility] Neutrophil % 54.2 % 10/12/2023 5:21 AM [facility] Neutrophil Absolute (ANC) - Automated 2.77 1.70 - 6.10 x10(3)/mc L 10/12/2023 5:21 AM [facility] Lymph % 35.9 % 10/12/2023 5:21 AM [facility] Lymph Absolute 1.83 0.90 - 3.20 x10(3)/mc L 10/12/2023 5:21 AM [facility] Monocyte % 7.3 % 10/12/2023 5:21 AM [facility] Monocyte Absolute 0.37 0.30 - 0.90 x10(3)/mc L 10/12/2023 5:21 AM [facility] Eos % 1.8 % 10/12/2023 [...] HEMATOLOGY ORDERABLE S [facility] [place] [place] [address] * (ABNORMAL) Hepatic Function Panel (10/12/2023 5:09 [...] MD CHEMISTRY ORDERABLES [facility] [place] [address] * Phosphorus (10/12/2023 5:09 AM EDT) Phosphorus 3.4 2.5 - 4.5 mg/dL 10/12/2023 5:46 AM EDT [facility] Blood VENOUS BLOOD SPECIMEN / Unknown IP Care Team Draw / Unknown 10/12/2023 5:09 AM EDT 10/12/2023 5:17 AM EDT More Orozco MD CHEMISTRY ORDERABLES Performing Organization Address City/[facility]/ZIP Co de Phone Number [facility] [place] [address] * TSH (10/11/2023 6:17 PM EDT) Thyroid [...] MD CHEMISTRY ORDERABLES [facility] [place] [address] * Lipase (10/11/2023 6:17 PM EDT) Pathologist [facility] Lipase 29 0 - 60 unit/L 10/12/2023 1:15 AM EDT [facility] Blood VENOUS BLOOD SPECIMEN / Unknown IP Care Team Draw / Unknown 10/11/2023 6:17 PM EDT 10/11/2023 6:23 PM EDT More Orozco MD CHEMISTRY ORDERABLES Performing Organization Address City/[facility]/ZIP Co de Phone Number [facility] [place] [place] [address] * (ABNORMAL) Troponin-T, Joseph Sensitivity 3 Hour (10/11/2023 6:17 PM EDT) Pathologist [facility] Troponin-T, High Sensitivity 15(H) <=14 [...] troponin value can be found in the [facility] Test Catalog Troponin - https://one-.testcatalog.org/catalogs/565/files/27887 Reference: Fourth [place] Definition of Myocardial Infarction. Journal of the [place] [employer] 2018;72:6781-7637 Troponin-T, HS 3 hr delta 2 ng/L [...] MD CHEMISTRY ORDERABLES [facility] [place] [address] * (ABNORMAL) Troponin-T, High Sensitivity 1 Hour [...] troponin value can be found in the [facility] Test Catalog Troponin - https://one-.testcatalog.org/catalogs/565/files/29592 Reference: Fourth [place] Definition of Myocardial Infarction. Journal of the [place] [employer] 2018;72:7769-7512 Troponin-T, HS 1 hr delta 1 ng/L [...] MD CHEMISTRY ORDERABLES [facility] [place] [address] * CT Angiogram Chest Abdomen Pelvis w Contrast (10/11/2023 3:44 PM EDT) [employer] WORKSTATION ID [id number] [facility][NOTE 3] Anatomical Region Laterality Modality Abdomen, Chest Computed [...] who have questions please contact the health home care consultant that requested your imaging first. ? Electronically signed by: ERLIN SAINI MD, [facility] ([phone]), at 10/11/2023 4:11 PM Narrative 10/11/2023 4:11 PM EDT EXAMINATION: CT [...] and of normal caliber. No dissection. Scattered [id number] atheromatous plaque is noted. Celiac: Patent. No [...] and of normal caliber. No dissection. Scattered [id number] atheromatous plaque is noted. Celiac: Patent. No [...] patients who have questions please contactthe health home care consultant that requested your imaging first. Karla [...] red blood cell turnover may not be call center representative of glycemic control. Reference Interval: 4.3 - 5.6% 5.7 - 6.4%: Consistent with prediabetes >=6.5%: Consistent with diagnosis of diabetes mellitus Estimated Average Glucose 10/12/2023 1:06 AM EDT [facility] Comment:Not Calculated. Blood VENOUS BLOOD SPECIMEN / Unknown Venipuncture / Unknown 10/11/2023 3:01 PM EDT 10/11/2023 3:09 PM EDT [facility] - 10/12/2023 1:06 AM EDT Estimated average glucose (eAG) is calculated from the equation described in: Malvin DM, Jamal J, Janina R, et al. ??Translating the A1C assay into estimated average glucose values. ??Diabetes Care 2008:31(8):7678-2186. Additional resources are available on the ADA website (diabetes.org). More Orozco MD CHEMISTRY ORDERABLES [facility] [place] [address] * (ABNORMAL) Troponin-T, High Sensitivity (10/11/2023 3:01 PM EDT) Pathologist [facility] Troponin-T, High Sensitivity Initial 17(H) <=14 ng/L [...] troponin value can be found in the [facility] Test Catalog Troponin - https://[employer] [place].testcatalog.org/catalogs/565/files/64523 Reference: Fourth [place] Definition of Myocardial Infarction. Journal of the [place] College [employer]iology 2018;72:9643-9238 Blood VENOUS BLOOD SPECIMEN / Unknown Venipuncture / Unknown 10/11/2023 3:01 PM EDT 10/11/2023 3:09 PM EDT Karla Faria MD CHEMISTRY ORDERABLES Performing Organization Address City/[facility]/ZIP Co de Phone Number [facility] [place] [place] [address] * Lipase (10/11/2023 3:01 PM EDT) Lipase 35 0 - 60 unit/L 10/11/2023 3:53 PM EDT [facility] Blood VENOUS BLOOD SPECIMEN / Unknown Venipuncture / Unknown 10/11/2023 3:01 PM EDT 10/11/2023 3:09 PM EDT Karla Faria MD CHEMISTRY ORDERABLES Performing Organization Address City/[facility]/ZIP Co de Phone Number [facility] [place] [address] * Hepatic Function Panel (10/11/2023 3:01 PM [...] MD CHEMISTRY ORDERABLES [facility] [place] [address] * (ABNORMAL) Basic Metabolic Panel (10/11/2023 3:01 [...] MD CHEMISTRY ORDERABLES [facility] [place] [address] * (ABNORMAL) CBC (with Diff) (10/11/2023 3:01 PM EDT) White Blood Cell 6.04 4.00 - 9.50 x10(3)/mc L 10/11/2023 3:28 PM [facility] Red Blood Cell 3.72(L) 4.00 - 5.21 x10(6)/mc L 10/11/2023 3:28 PM [facility] Hemoglobin 12.0 11.7 - 15.5 g/dL 10/11/2023 3:28 PM [facility] Hematocrit 34.5(L) 35.7 - 45.8 % 10/11/2023 3:28 PM [facility] Mean Cell Volume 92.7 82.6 - 94.4 fL 10/11/2023 3:28 PM [facility] Mean Cell Hemoglobin 32.3(H) 27.1 - 32.0 pg 10/11/2023 3:28 PM [facility] Mean Cell Hemoglobin Concentration 34.8 31.7 - 35.0 g/dL 10/11/2023 3:28 PM [facility] Platelet 246 145 - 357 x10(3)/mc L 10/11/2023 3:28 PM [facility] Mean Platelet Volume 10.3 7.6 - 12.9 fL 10/11/2023 3:28 PM [facility] RDW Standard Deviation 43.2 37.0 - 46.0 fL 10/11/2023 3:28 PM [facility] RDW coefficient of variation 12.6 11.5 - 14.1 % 10/11/2023 3:28 PM [facility] NRBC% auto 0.0 % 10/11/2023 3:28 PM [facility] NRBC Absolute 0.00 0.00 - 0.00 x10(3)/mc L 10/11/2023 3:28 PM [facility] Neutrophil % 67.7 % 10/11/2023 3:28 PM [facility] Neutrophil Absolute (ANC) - Automated [...] HEMATOLOGY ORDERABLE S [facility] [place] [address] * (ABNORMAL) Urinalysis Microscopic Reflex to Culture [...] Faria MD URINE ORDERABLES Performing Organization Address City/[facility]/ZIP Co de Phone Number [facility] [place] [place] [address] * Urinalysis Microscopic with Reflex to Culture (10/11/2023 2:54 PM EDT) Urine URINE SPECIMEN OBTAINED BY CLEAN CATCH PROCEDURE / Unknown Non Blood Collection / Unknown 10/11/2023 2:54 PM EDT 10/11/2023 3:09 PM EDT Karla Faria MD URINE ORDERABLES [facility] [place] [address] * (ABNORMAL) Urinalysis with reflex Culture (10/11/2023 [...] PM EDT [facility] Specific [place] Urine Automated 1.007 1.005 - 1.030 10/11/2023 [...] MD URINE ORDERABLES [facility] [place] [address] * EKG 12 Lead (10/11/2023 2:49 PM EDT) Ventricular rate 53 BPM MUSE SYSTEM Atrial Rate 53 BPM MUSE SYSTEM P-R Interval 176 ms MUSE SYSTEM QRS Duration 70 ms MUSE SYSTEM Q-T Interval 428 ms MUSE SYSTEM QTC Calculated (Bezet) 401 ms MUSE SYSTEM Calculated P [place] 65 degrees MUSE SYSTEM Calculated R [place] 6 degrees MUSE SYSTEM Calculated T [place] 51 degrees MUSE SYSTEM INTERPRETATION Sinus bradycardia [...] Intravenous, EVERY 6 HOURS PRN, Starting on Fri10/13/23 at 0629, Until Fri10/13/23 at 1957, High Blood Pressure, for SBP [...] PRN, Starting on 10/12/23 at 0451, Until Fri10/13/23 at 195, Nausea, Use ondansetron first line [...] at 0450, Until Fri10/13/23 at 1957, Nausea, Vomiting, Use ondansetron first line and if ineffective use prochlorperazine second line., Routine prochlorperazine (Compazine) tablet 10 mg 10 mg, Oral, EVERY 6 HOURS PRN, Starting on 10/12/23 at 0450, Until Fri10/13/23 at 195, Nausea, Use ondansetron first line and if ineffective use prochlorperazine second line. Maximum dose: 50 mg / 24 hrs, Routine rivaroxaban (Xarelto) tablet 10 mg 10 mg, Oral, DAILY, First dose (after last modification) on 10/12/23 at 0900, Until Discontinued, Routine, rivaroxaban (Xarelto) Indication: DVT or PE, Chronic/Long-term (Secondary [...] 10 mL, Oral, ONCE, 1 dose, On 10/13/23 at 0100, STAT 0051 (Given - Provider: Patricia Jj RN) amLODIPine (Norvasc) tablet 5 mg 5 mg, Oral, DAILY, First dose on 10/13/23 at 0700, Until Discontinued, Routine 0957 (APR Hold - Provider: Admin Adt - Reason: Transfer to a Procedural area)1132 (APR Unhold - Provider: Admin Adt)1451 (Given - Provider: Erendira Barnhart RN) diphenhydrAMINE/aluminum- magnesium hydroxide with simethicone/lidocaine (BMX) (6.67 mg-0.83 mg-13.33 mg-1.33 mg/mL) oral liquid 5 mL (CANCELED) 5 mL, Oral, 2 TIMES DAILY, First dose on 10/11/23 at 1450, Until Discontinued, Each 5 mL contains equal parts of diphenhydramine (BENADYL), aluminum-magnesium hydroxide w/ simethicone (MAALOX), and lidocaine (XYLOCAINE), Routine 1454 (Given - Provider: Perlita Milian, LINDEN)2100 (Not Given - Provider: Perlita Milian RN - Reason: Patient/family refused) 0917 (Given - Provider: Jennifer Zhou, LINDEN)2100 (Not Given - Provider: Patricia Jj RN [...] ONCE, 1 dose, On 10/12/23 at 0040 0201 (Given - Provider: Elza [...] Perlita Milian, LINDEN)2257 (Stopped - Provider: Perlita Milian RN) LORazepam (Ativan) (2 mg/mL) injection syringe 0.5 mg 0.5 mg, Intravenous, ONCE, 1 dose, On 10/13/23 at 0215, Routine 0400 (Not Given - Provider: Elza Wagner RN - Reason: Patient/family refused)0957 (APR Hold - Provider: Admin Adt - Reason: Transfer to a Procedural area)1132 (MAR Unhold - Provider: Admin Adt) losartan (Cozaar) tablet 100 mg 100 mg, Oral, DAILY, First dose on 10/12/23 at 0900, Until Discontinued, Routine 0917 (Given - Provider: Jennifer Zhou RN) 0957 (APR Hold - Provider: Admin Adt - Reason: Transfer to a Procedural area)1132 (MAR Unhold - Provider: Admin Adt)1451 (Given - [...] (Given - Provider: Patricia Jj RN) 0957 (MAR Hold - Provider: Admin Adt - [...] Zhou RN)1115 (Stopped - Provider: Skye Stout, RN)1118 (New Bag - Provider: Skye Stout, RN)1222 (Stopped - Provider: Skye Stout, LINDEN) rivaroxaban (Xarelto) tablet 10 mg 10 mg, Oral, DAILY, First dose (after last modification) on 10/12/23 at 0900, Until Discontinued, Routine, rivaroxaban (Xarelto) Indication: DVT or PE, Chronic/Long-term (Secondary Prevention) 0917 (Given - Provider: Jennifer Zhou RN) 0957 (APR Hold - Provider: Admin Adt - Reason: Transfer to a Procedural area)1132 (MAR Unhold - Provider: Admin Adt)1451 (Given - Provider: Erendira Barnhart RN) sodium chloride 0.9 % (flush) (BD PosiFlush Normal Saline 0.9) flush 5 mL 5 mL, Intravenous, 2 TIMES DAILY, First dose on 10/11/23 at 2345, Until Discontinued, Routine 2352 (Given - Provider: Perlita Milian RN) 0917 (Given - Provider: Jennifer Zhou RN)2025 (Given - Provider: Patricia Jj RN) 0957 (MAR Hold - Provider: Admin Adt - Reason: Transfer to a Procedural area)1132 (MAR Unhold - Provider: Admin Adt)1452 (Given - Provider: Erendira Barnhart RN) Continuous Medication Order 10/11/2023 10/12/2023 10/13/2023 sodium chloride 0.9% with potassium chloride 20 mEq infusion () 100 mL/hr, Intravenous, CONTINUOUS, Starting on 10/11/23 at 2335, Until 10/12/23 at 1434 2343 (New Bag - Provider: Perlita Milian RN) 0902 (New Bag - Provider: Jennifer Zhou RN)1944 (Stopped - Provider: Patricia Jj RN) PRN Medication Order 10/11/2023 10/12/2023 10/13/2023 hydrALAZINE (Apresoline) (20 mg/mL) injection 5 mg 5 mg, Intravenous, EVERY 6 HOURS PRN, Starting on 10/13/23 at 0629, Until 10/13/23 at 1957, High Blood Pressure, for SBP > 170 0957 ([facility] Hold - Provider: Admin Adt - Reason: Transfer to a Procedural area)1132 ([facility] Unhold - Provider: Admin Adt) [...] for discomfort with PIV insertion, Routine 0957 ([facility] Hold - Provider: Admin Adt - Reason: Transfer to a Procedural area)1132 ([facility] Unhold - Provider: Admin Adt) melatonin tablet 3 mg 3 mg, Oral, NIGHTLY PRN, Starting on 10/11/23 at 2327, Until 10/13/23 at 1957, Sleep, Sleep, Routine 0957 ([facility] Hold - Provider: Admin Adt - Reason: Transfer to a Procedural area)1132 ([facility] Unhold - Provider: Admin Adt) [...] if ineffective use prochlorperazine second line. 09 ([facility] Hold - Provider: Admin Adt - Reason: Transfer to a Procedural area)1132 ([facility] Unhold - Provider: Admin Adt) prochlorperazine (Compazine) (5 mg/mL) injection 10 mg(Linked Group 1) 10 mg, Intravenous, EVERY 6 HOURS PRN, Starting on 10/12/23 at 0450, Until 10/13/23 at 1957, Nausea, Vomiting, Use ondansetron first line and if ineffective use prochlorperazine second line., Routine 09 ([facility] Hold - Provider: Admin Adt - Reason: Transfer to a Procedural area)1132 ([facility] Unhold - Provider: Admin Adt) prochlorperazine (Compazine) tablet 10 mg(Linked Group 1) 10 mg, Oral, EVERY 6 HOURS PRN, Starting on 10/12/23 at 0450, Until 10/13/23 at 1957, Nausea, Use ondansetron first line and if ineffective use prochlorperazine second line. Maximum dose: 50 mg / 24 hrs, Routine 956 ([facility] Hold - Provider: Admin Adt - Reason: Transfer to a Procedural area)1132 ([facility] Unhold - Provider: Admin Adt) sodium chloride 0.9 % (flush) (BD PosiFlush Normal Saline 0.9) flush 5-20 mL 5-20 mL, Intravenous, EVERY 1 MIN PRN, Starting on 10/11/23 at 2327, Until 10/13/23 at 1957, flush, Flush pertains to all indwelling lines. 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
--- OUTSIDE RECORDS SUMMARY | 2023-12-12 09:42 | XMS_ITS | Continuity of Care Document ---
Author Organization [place] - [facility], [facility] Address [address] [place] [address] Assessment No assessment recorded. Plan of Treatment Reminders Order Date Submit Date Provider Last Modified By Organization Details Last Modified Time Details Appointments Medicare Wellness 40 (Subs) 2023 11:20A M KUMAR SCHULTZ Not available Not available Not available Lab urinalysi s, complete 2023 024 [place] [id number] [facility] (Registration ), [address] [place] [address] [place], [address], 10/15/2023 07:31:06 CMP, serum or plasma 2023 024 RAPHAEL [facility] (Registration ), [address] [place] [address] [place], [address], 10/08/2023 21:31:32 lipase, serum or plasma 2023 024 [place] [id number] [facility] (Registration ), [address] [place] [address] [place], [address], 10/15/2023 07:30:38 CBC w/ diff 2023 024 [place] [id number] [facility] (Registration ), [address] [place] [address] [place], [address], 10/15/2023 07:30:47 urinalysi s, dipstick 2023 024 [facility], [address] [place], [address], 10/08/2023 15:28:01 magnesium , serum or plasma 2023 024 avery n21 [facility] (Registration ), [address] [place] [address] [place], [address], 10/15/2023 07:30:54 Referral None recorded. Procedures None recorded. Surgeries None recorded. Imaging electroca rdiogram [address], [address] [place], [address], 10/08/2023 17:26:09 Medication Orders simethico ne 80 mg chewable tablet 2023 024 anival [facility], [address] [place], [address], 10/08/2023 15:27:58 pantopraz ole 20 mg tablet,de layed release 2023 024 RAPHAEL [facility], [address] [place], [address], 10/15/2023 07:38:03 Valtrex 500 mg tablet 2023 024 anival [facility], [address] [place], [address], 10/08/2023 15:27:58 Patient TargetsNo targets recorded. Patient InstructionsNo instructions recorded. 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 Referral for D ysplastic nevus of skin skin survey, atypical nevus L cheek Referring Physician: Kumar Schultz, Family Medicine, Encounter Date: 12/31/2022 Results Created Date Observation Date Name Description Value Unit Range Abnormal Flag Note LastModifiedBy Organization Detail LastModifiedTime 10/08/1910/08/2023 urina lysis , dipst ick Leukocytes Negati ve Not Available [facility] [address] [place], [address], 10/08/2023 15:13:16 10/08/19 24 10/08/2023 urina lysis , dipst ick Nitrite negati ve Not Available [address], [address], 10/08/2023 15:13:16 10/08/19 24 10/08/2023 urina lysis , dipst ick Urobilinogen .2 Not Available [address], [address], 10/08/2023 15:13:16 10/08/19 24 10/08/2023 urina lysis , dipst ick Protein Negati ve Not Available [facility] [address] [place], [address], 10/08/2023 15:13:16 10/08/19 24 10/08/2023 urina lysis , dipst ick pH 6.0 Not Available [address], [address], 10/08/2023 15:13:16 10/08/19 24 10/08/2023 urina lysis , dipst ick Blood Non-He molyze d: Modera te Not Available [address], [address], 10/08/2023 15:13:16 10/08/19 24 10/08/2023 urina lysis , dipst ick Specific [place] 1.015 Not Available [address], [address], 10/08/2023 15:13:16 10/08/19 24 10/08/2023 urina lysis , dipst ick Ketone Modera te Not Available [address], [address], 10/08/2023 15:13:16 10/08/19 24 10/08/2023 urina lysis , dipst ick Bilirubin Negati ve Not Available [address], [address], 10/08/2023 15:13:16 10/08/19 24 10/08/2023 urina lysis , dipst ick Glucose Negati ve Not Available [address], [address], 10/08/2023 15:13:16 10/08/19 24 10/08/2023 urina lysis , dipst ick Appearance Clear Not Available [address], [address], 10/08/2023 15:13:16 10/08/19 24 10/08/2023 urina lysis , dipst ick Color Pale Yellow Not Available [address], [address], 10/08/2023 15:13:16 10/08/19 24 10/08/2023 elect rocsusana diogr am No observ ation record ed. [email or web address] [address], [address], 10/08/2023 17:26:08 10/08/19 elect rocsusana diogr am No observ ation record ed. [email or web address] Not Available 2023 16:29:35 10/19/19 24 10/19/2023 vrad repor t Patien t Name: Jose Alejandro Briceño Unit #: [id number] Loc: ER Orderi ng Provid er: Lynn duarte #: [id number] Status : REG ER Primar y Care Provid er: Kumar Schultz Date of Exam: 03/12 Sex: F : 1935 Age: 87 Exam(s ) PROCED URE INFORM ATION: Exam: US Abdome n, Limite d; Right Upper Quadra nt Exam date and time: 10/19/19 9:21 AM Age: 87 years old Clinic al indica tion: Abdomi nal pain; Epigas tric TECHNI QUE: Imagin g protoc ol: Real time ultras ound of the abdome n with image docume ntatio n. Limite d exam focuse d on the right upper quadra nt. COMPAR MOHAMUD: No releva nt prior studie s are availa ble for compar mohamud. FINDIN GS: Liver: No focal hepati c lesion demons trated . Gallbl adder: Sludge and/or small calcul i in the gallbl adder. No gallbl adder calcul i are identi fied. No gallbl adder wall thicke judd demons trated . No sonogr aphic Maradiaga 's sign was elicit ed. Per the ultras ound techno logist , malika t report ed 5-07/27 epigas tric tender ness. Biliar y ducts: Common bile duct not dilate d. Pancre as: Unrema rkable as visual ized. Right kidney : Questi onable 4 mm right renal calcul us. No right hydron ephros is. IMPRES YEMI: 1. No sonogr aphic eviden ce for cholec ystiti s. 2. Findin gs as above. Dictat ed and Authen ticate d by: Karen Maddox MD. Amanda graham:Mat Reynolds MD Access ion#=[id number] Ordere d By: CC: ------ ------ ------ ------ ------ ------ ------ ------ ------ ------ ------ ------ ---- Dictat ed By: Report s vrad 09 1040 Transc ribed By: Di Merge 920 This is privil eged, confid ential inform ation intend ed only for the provid er named. Any use or distri bution by any person other than this provid er is strict ly prohib ited. If you receiv e this report in error, please notify us immedi ately at and return the origin al report to us at the addres s above. Thank- you. [email or web address] [facility] [address] [place], [address] 10/21/2023 20:07:29 10/19/1910/19/2023 ultra sound imagi ng repor t Patililian t Name: Jose Alejandro Briceño Unit #: [id number] Loc: ER Orderi ng Provid er: Rodolfo Morales M.D. Accoun t #: [id number] Status : DEP ER Primar y Care Provid er: Kumar Schultz Date of Exam: 03/12 Sex: F Admiss ion Date: : 1935 Age: 87 Exam(s ) US ABDOME N LIMITE D EXAM: US ABDOME N LIMITE D CLINIC AL HISTOR Y: upper abdomi nal pain TECHNI QUE: Ultras ound abdome n perfor med using standa rd protoc ol. COMPAR MOHAMUD: CT CT CHEST PE CTA from 2020 US US ECHOCA RDIOGR AM from 2021 FINDIN GS: There is no ascite s eviden t. LIVER: There are no hepati c lesion s eviden t nor dilata tion of intrah epatic ducts. GALLBL ADDER/ BILIAR Y: There appear s to be some sludge in the gallbl adder lumen seen on a few images . No shadow ing gallst ones. No gallbl adder disten yemi nor gallbl adder wall edema. There is no perich olecys tic fluid. The common hepati c duct isnot dilate d, measur ing 3-4mm at the level of andrew hepati s. PANCRE : There is no eviden ce of pancre atic mass nor dilata tion of the pancre atic duct. RIGHT KIDNEY :Small hypere choic focus at the mid pole level may repres ent a small nonobs tructi ve renal calcul us. No hydron ephros is. No cysts nor solid right renal masses . IMPRES YEMI: 1. There appear s to be some sludge in the gallbl adder lumen. Howeve r, no ultras ound eviden ce of acute cholec ystiti s. Common hepati c duct is not dilate d. 2. Small hypere choic focus in the midpol e level of the right kidney is possib ly a nonobs tructi ve calcul us. 3. No other right upper quadra nt ultras ound findin gs and there is no ascite s. DATA REPOSI TORY: Willem foss By: Rodolfo Morales M.D. CC: ------ ------ ------ ------ ------ ------ ------ ------ ------ ------ ------ ------ - Dictat ed By: Demarcus Del Toro M.D. 1709 Transc ribed By: Katey SMITH,Edwin montalvo 1709 This is privil eged, confid ential inform ation intend ed only for the provid er named. Any use or distri bution by any person other than this provid er is strict ly prohib ited. If you receiv e this report in error, please notify us immedi ately at and return the origin al report to us at the addres s above. Thank- you. [facility] [address] [facility], [address] 10/21/2023 20:07:29 11/03/1906/20/2021 imagi ng/di edilsonos tic resul t No observ ation record ed. [email or web address] Not Available 11/02 20:06:19 09/16/06/18/2018 imagi ng/di agnos tic resul t No observ ation record ed. [email or web address] Not Available 11/02 20:06:58 11/03/19 24 01/19/2021 imagi ng/di agnos tic resul t No observ ation record ed. [email or web address] Not Available 11/02 20:07:31 11/03/19 24 01/19/2021 imagi ng/di agnos tic resul t No observ ation record ed. [email or web address] Not Available 11/02 20:07:35 11/03/19 24 06/22/2020 imagi ng/di agnos tic resul t No observ ation record ed. [email or web address] Not Available 11/02 20:08:06 11/03/19 24 06/25/2018 imagi ng/di agnos tic resul t No observ ation record ed. [email or web address] Not Available 11/02 20:08:47 11/03/19 24 06/15/2021 imagi ng/di agnos tic resul t No observ ation record ed. [email or web address] Not Available 11/02 20:08:48 11/03/19 24 12/18/2020 imagi ng/di agnos tic resul t No observ ation record ed. [email or web address] Not Available 11/02 20:08:50 11/03/19 24 06/13/2022 bone densi ty No observ ation record ed. [email or web address] Not Available 11/02 20:08:51 11/03/19 24 07/21/2020 CT, abdom en + pelvi s No observ ation record ed. [email or web address] Not Available 11/02 20:08:52 11/03/19 24 03/16/2018 imagi ng/di agnos tic resul t No observ ation record ed. [email or web address] Not Available 11/02 20:08:57 11/03/19 24 06/25/2018 XR, chest No observ ation record ed. [email or web address] Not Available 11/02 20:08:58 11/03/19 24 01/19/2021 imagi ng/di agnos tic resul t No observ ation record ed. [email or web address] Not Available 11/02 20:08:59 11/03/19 24 01/19/2021 imagi ng/di agnos tic resul t No observ ation record ed. [email or web address] Not Available 11/02 20:09:00 11/03/19 24 06/22/2020 imagi ng/di agnos tic resul t No observ ation record ed. [email or web address] Not Available 11/02 20:09:01 11/03/19 24 02/17/2020 XR, lumba r spine No observ ation record ed. [email or web address] Not Available 11/02 20:09:06 11/03/19 24 07/02/2021 imagi ng/di agnos tic resul t No observ ation record ed. [email or web address] Not Available 11/02 20:09:16 11/03/19 24 06/22/2020 imagi ng/di agnos tic resul t No observ ation record ed. [email or web address] Not Available 11/02 20:09:24 11/03/19 24 03/15/2018 imagi ng/di agnos tic resul t No observ ation record ed. [email or web address] Not Available 11/02 20:09:25 11/25/19 24 11/25/2023 nucle ar medic ine imagi ng rpt Patien t Name: Marina fultonJose Alejandro sadie Chavez Unit #: [id number] Loc: DI Orderi ng Provid er: Lambert Dias t #: [id number] Status : REG CLI Primar y Care Provid er: Kumar Schultz Date of Exam: 10/10 Sex: F Admiss ion Date: : 1935 Age: 88 Exam(s ) NM HEPATO BILIAR Y CCK GRP EXAM: NM HEPATO BILIAR Y CCK GRP CLINIC AL HISTOR Y: RUQ PAIN R10.11 FLATUL ENCE R14.3. TECHNI QUE: Inject ed dose: 4.7 mCi Tc-99 mebrof enin Initia l dynami c images : 60 minute s Post-G allbla dder fillin .02 mcg/kg CCK intrav enousl y over a 20min infusi on. Additi on images : 20 minute dynami c during CCK admini strati on. COMPAR MOHAMUD: Prior ultras ound 2023. FINDIN GS: There is normal uptake and excret ion of radiop harmac eutica l by the liver and activi ty is seen within the gallbl adder lumen starti ng at 8 minute s post-i njecti on. Follow ing CCK infusi on there is a normal gallbl adder ejecti on fractu re in of 66 percen t demons trated (megan l is above 35 percen t). IMPRES YEMI: 1. No eviden ce of obstru ction of the cystic duct. 2. No eviden ce of gallbl adder dysfun ction. 3. Normal gallbl adder ejecti on fracti on of 66 percen t eviden t on this study in respon se to CCK infusi on Ordere d By: Lambert Dias CC: ------ ------ ------ ------ ------ ------ ------ ------ ------ ------ ------ ------ - Dictat ed By: Demarcus Del Toro M.D. 1312 1312 Transc ribed By: Katey SMITH,Edwin montalvo 1312 This is privil eged, confid ential inform ation intend ed only for the provid er named. Any use or distri bution by any person other than this provid er is strict ly prohib ited. If you receiv e this report in error, please notify us immedi ately at and return the origin al report to us at the addres s above. Thank- you. INTERFACE [facility] [address] [place], [address] 11/25/2023 13:25:42 Result Notes None recorded. Problems Name Problem SNOMED Code Status Onset Date Resolution Date Notes Provider Name and Address Organization Details Recorded Time Hyperlip idemia 67070593 Active 2004 [facility] 4 11:53:59 Gastroes ophageal reflux disease without esophagi tis 190972865 Active 2001 [facility] 4 11:46:37 Lichen planus 1329943 Active [place] [facility] [facility] 4 11:54:41 History of disorder of digestiv e system 762253021 Active 2003 Hx of divertic ulitis -- recurren t bouts since 2003 [facility] 4 11:49:07 History of clinical finding in subject 495492764 Completed 200904/07/2009 Not Available [facility] 3 05:36:29 Essentia l hyperten yemi 03230412 Active 2004 [facility] 4 11:46:26 [place]we[place] ht 135349292 Active 2013 (BMI 25-29.9) [facility] 4 11:55:29 Herpesvi marci infectio n 19251833 Active 2014 Genital herpes -- L buttock [facility] 4 11:48:00 Haque' s esophagu s 265952812 Active 2014 last endo 11/01 [facility] 4 11:45:08 Anxiety disorder 551850719 Active 2014 [facility] 4 11:10:17 Pain in thoracic spine 338232023 Completed 201511/23/2015 11/16/19 16 - Comments only - Kumar Schultz MD - Muscular , R trap vs rhomboid s. Advised local massage, muscle rubs, heat, etc. 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 Not Available [facility] 3 05:36:31 Disorder of skin appendag e 043043121 Completed 201804/17/2018 03/22/19 19 - Comments only - Kumar Schultz MD - And cellulit is, empiric coverage for possible fungal infectio n ineffect shilap. Staph or other bacteria l infectio n seems more likely therefor e. Some sort of contact dermatit is is also in [facility] tia but less likely. Will treat with cephalex in. May apply over-the -counter hydrocor tisone cream and/or use low-dose Benadryl as needed for itching. Cautione d balbirin g potentia l side effects of latter. 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, chronic since 2019, noted again on CT 01/2021 [facility], [facility] 4 11:56:54 Atrophic vaginiti s 71532082 Active 2018 [facility] 4 11:10:34 General examinat ion of patient Active 2019 [facility] 4 11:46:54 Thigh pain 99793337 Completed 201911/06/2019 10/06/19 20 - Comments only - Anamaria [place] [facility] [employer] - -Only one brief occurenc e of pain in bilatera l thights and no recurren ce to date -She is wonderin g about neuralgi a - while she describe s burning pain she has no sx now, and initial sx lasted for only approx. 1 minute. -Given brief nature of sx will continue to monitor and she is encour ed to call with any concerns . 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 4 11:53:43 Long-ter m current use of anticoag ulant 105792851 Active 2020 [facility] 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 Arthriti s, hips, bilatera l [facility] 4 11:54:24 Actinic keratosi s Active 2020 distal L nose [facility] 4 11:10:06 Elevated blood-pr essure reading without diagnosi s of hyperten yemi 361911569 Active 2020 Labile hyperten yemi [facility] 4 11:46:14 Screenin g for osteopor osis Active 2022 [facility] 4 11:57:55 Hearing loss 65904533 Completed 202204/17/2022 Problem Code: H91.90; Problem Code Type: ICD-10; Not Available [facility] 3 05:36:34 Trigger finger of right hand 05477650165 160934 Active 2022 Trigger finger of right ring finger [facility] 4 11:58:33 Lumbosac ral radiculo conrad 2821654 Active 2022 [facility] 4 11:55:12 Pulmonar y embolism 34541213 Completed 202103/12/2022 Problem Code: I26.99; Problem Code Type: ICD-10; Not Available [facility] 3 05:36:43 Divertic ulitis 022491939 Completed 200311/13/2022 Not Available [facility] 3 05:36:43 Pain in right hip joint 47275673533 9102 Completed 202011/13/2022 12/13/19 21 - Comments only - Kumar Schultz MD - will obtain xray of hip although i suspect pain is more muscular in origin. If no evidence of severe DJD, would refer to PT. (otherwi se to ortho). Reviewed basic stretche s she can try meanwhil e. Problem Code: M25.551; Problem Code Type: ICD-10; Not Available [facility] 3 05:36:44 Diplopia 96401125 Completed 201111/16/2015 Problem Code: H53.2; Problem Code Type: ICD-10; Not Available [facility] 3 05:36:44 Dyspnea 620919135 Completed 201703/12/2022 Problem Code: R06.09; Problem Code Type: ICD-10; Not Available [facility] 3 05:36:44 Chronic rhinitis 68511319 Completed 201703/12/2022 Problem Code: J31.0; Problem Code Type: ICD-10; Not Available [facility] 3 05:36:44 Localize d eruption of skin 590448223 Completed 201903/07/2020 Problem Code: R21; Problem Code Type: ICD-10; Not Available [facility] 3 05:36:45 Neoplasm of skin 971531956 Completed 202001/23/2021 Not Available [facility] 3 05:36:45 Hyperten sive disorder 60737947 Completed 200411/13/2022 Not Available [facility] 3 05:36:45 Counseli ng Completed 202003/12/2022 Problem Code: Z71.89; Problem Code Type: ICD-10; Not Available [facility] 3 05:36:46 Pulmonar y embolism 77458218 Completed 201011/08/2014 Problem Code: 415.19; Problem Code Type: ICD-9; Not Available [facility] 3 05:36:47 Dysphagi a 52487516 Completed 201703/12/2022 Problem Code: R13.10; Problem Code Type: ICD-10; Not Available [facility] 3 05:36:47 Obesity 720950300 Completed 201311/13/2022 Problem Code: E66.9; Problem Code Type: ICD-10; Not Available [facility] 3 05:36:47 Greater trochant jeremi pain syndrome 7415591 Completed 201505/23/2017 Problem Code: M70.60; Problem Code Type: ICD-10; Not Available [facility] 3 05:36:48 Long-ter m current use of drug therapy 262449754 Completed 202003/12/2022 Problem Code: Z79.899; Problem Code Type: ICD-10; Not Available [facility] 3 05:36:48 Fatigue 12525292 Completed 202011/13/2022 Problem Code: R53.83; Problem Code Type: ICD-10; Not Available [facility] 3 05:36:49 Essentia l hyperten yemi 70811599 Completed 201703/12/2022 Problem Code: I10; Problem Code Type: ICD-10; An miller [facility]. 4 11:46:26 Genital herpes simplex 44819479 Completed 201411/13/2022 Not Available [facility] 3 05:36:49 Nicotine dependen ce 87312492 Completed 201003/12/2022 Problem Code: Z87.891; Problem Code Type: ICD-10; Not Available [facility] 3 05:36:49 Lumbosac ral radiculo conrad 9017664 Completed 201902/25/2020 Problem Code: M54.16; Problem Code Type: ICD-10; An miller [facility]. 4 11:55:12 Divertic ulitis of intestin e 783773250 Completed 200311/13/2022 01/24/20 21 - Comments only - Kumar Schultz MD - and vidya paniagua Completi ng Abx, sx resolvin g. REviewed general manageme nt strategi es. Problem Code: K57.92; Problem Code Type: ICD-10; Not Available [facility] 3 05:36:51 Pulmonar y embolism 41222486 Completed 202011/13/2022 07/06/19 21 - Comments only - Kumar Schultz MD - Therapeu tic INR, continue current Coumadin with recheck in 1 week. Consider transiti on to Eliquis given availabi lity of reversal agent. Age appropri ate dosing would be 2.5 mg twice daily, starting once INR is less than 2. Problem Code: I26.99; Problem Code Type: ICD-10; Not Available [facility] 3 05:36:52 Pain in lower limb 63977871 Completed 202003/07/2020 Problem Code: M79.606; Problem Code Type: ICD-10; Not Available [facility] 3 05:36:52 Gastroes ophageal reflux disease 368392838 Completed 200111/13/2022 Not Available [facility] 3 05:36:53 Screenin g for disorder Completed 201505/23/2017 Problem Code: Z13.9; Problem Code Type: ICD-10; Not Available [facility] 3 05:36:53 Health conditio n feared but not present 13459477692 9109 Completed 201603/07/2017 Problem Code: Z71.1; Problem Code Type: ICD-10; Not Available [facility] 3 05:36:53 Blood glucose outside referenc e range 927930418 Completed 201811/13/2022 03/12/19 23 - Comments only - Kumar Schultz MD - stable, A1C 6.2. Continue lifestyl e manageme nt. Problem Code: R73.09; Problem Code Type: ICD-10; Not Available [facility] 3 05:36:53 Vomiting 377688750 Completed 202010/16/2020 Problem Code: R11.10; Problem Code Type: ICD-10; Not Available [facility] 3 05:36:54 Pelvic and perineal pain 253980179 Completed 201503/07/2017 Problem Code: R10.2; Problem Code Type: ICD-10; Not Available [facility] 3 05:36:55 Dyspnea 871522549 Completed 201706/06/2017 Problem Code: R06.00; Problem Code Type: ICD-10; Not Available [facility] 05:36:55 Polymyal gale rheumati ca 08255860 Completed 202011/13/2022 04/24/19 22 - Comments only [...] M35.3; Problem Code Type: ICD-10; Not Available [facility] 05:36:56 Eustachi an tube disorder [id number] Completed 201511/16/2015 Problem Code: H69.80; Problem Code Type: ICD-10; Not Available [facility] 05:36:56 Acute sinusiti s 22981554 Completed 201511/16/2015 Problem Code: J01.90; Problem Code Type: ICD-10; Not Available [facility] 3 05:36:57 History of disorder of digestiv e system [id number] Completed 201411/13/2022 Problem Code: Z87.19; Problem Code Type: ICD-10; An miller [facility]. 4 11:49:07 Blood chemistr y outside referenc e range [id number] Completed 201706/26/2020 Problem Code: R79.89; Problem Code Type: ICD-10; Not Available [facility] 3 05:36:58 Type 2 diabetes mellitus without complica tion [id number] Completed 201811/13/2022 04/24/19 22 - Comments only - Kumar Schultz MD - Diet controll ed, due for follow-u p A1c in 1 month. Will review whether this was checked with recent labs. Problem Code: E11.9; Problem Code Type: ICD-10; Not Available [facility] 3 05:36:59 Seborrhe ic keratosi s 717654423 Active 2022 [facility], [facility] 4 11:57:59 Chronic dermatit is 47341811 Active 2022 [facility], [facility] 4 11:45:32 Labile diastoli c hyperten yemi 23121624 Active 2023 KUMAR SCHULTZ MD [facility] Roberto [address]lvarez, [place], [address] , [facility] 16:57:30 Burping 930939087 Active 2023 GRAEME OLIVARES MA [facility], [facility] 4 19:18:33 Lichen sclerosu s 305438555 Active 2023 GRAEME OLIVARES MA [facility], [facility] 16:19:44 Problem Notes None recorded. Procedures Surgical History None recorded. Imaging Results Imaging Date Name Status LastModified by Organization Details LastModified Time 10/08/2023 electrocardiogram completed [email or web address] [address], [place], [address], 10/08/2023 17:26:08 Procedure Notes None recorded. Medical Equipment None Reported. Allergies Allergen ID Allergen Name Allergen Category Reaction Reaction Severity Criticality Documentation Date Start Date Code Code System Note Provider Name and Address Organization Details Recorded Time 65972 lisinopri l medicatio n rash moderate Not available 12/27/20222011 55291 RxNorm An [facility] 4 11:59:12 58996 codeine medicatio n other moderate Not available 12/27/20222001 2670 RxNorm No react ion enter ed [facility] 4 11:58:58 66573 Norvasc medicatio n other moderate Not available 06/20/20232011 37843 RxNorm face burni ng [facility] 4 11:59:52 Medications Name Sig Start Date Stop Date Status Note LastModified by Organization Details LastModified Time clonidine HCl 0.1 mg tablet 1TAB twice daily 06/04 completed Not Available Not Available Not Available Vitamin C 500 mg tablet 2017 active Not Available Not Available Not Avai lable azithromyc in 250 mg tablet TAKE 2 TABLETS BY MOUTH AT ONCE IF NEEDED FOR DIARRHEA 10/07 completed Not Available Not Available Not Available prochlorpe razine maleate 5 mg tablet TAKE ONE TABLET BY MOUTH EVERY 6 HOURS NEEDED FOR NAUSEA active Not Available Not Available No t Available sucralfate 1 gram tablet Take 1 tablet by mouth four times a day replaces suspensi on 12/12 completed Not Available Not Available Not Available prednisone 5 mg tablet 2.5 tabs po qd (12.5mg) until 05/03/20, then 2 tabs po qd (10mg) x 1 mo 2020 active Not Available Not Available Not Avai lable clobetasol 0.05 % topical cream Apply twice a week 2019 active Not Available Not Available Not Avai lable acetazolam reji 250 mg tablet TAKE ONE TABLET BY MOUTH TWICE A DAY FOR 7 DAYS WHILE AT ALTITUDE . BEGIN TAKING ONE DAY BEFORE YOUR TRIP 10/07 completed Not Available Not Available Not Available Nexium 40 mg capsule,de layed release 1po qd 03/23 completed Not Available Not Available Not Available Provigil 100 mg tablet 1 TAB QD 04/01 completed Not Available Not Available Not Available ciprofloxa marbella 250 mg tablet 1 TAB BID 04/27 completed Not Available Not Available Not Available amlodipine 5 mg tablet Take 1 tablet every day by oral route. 10/26 completed [facility]- not taking 10/27/23 Not Available Not Available Not Available valacyclov ir 500 mg tablet TAKE TWO TABLETS BY MOUTH TWICE A DAY FOR 5 DAYS active Not Available Not Available No t Available Prevacid 30 mg capsule,de layed release 1 TAB daily 06/07 completed Not Available Not Available Not Available pantoprazo le 20 mg tablet,del ayed release TAKE ONE TABLET BY MOUTH EVERY DAY 10/14 completed Not Available Not Available Not Available hydrocorti sone 2.5 % topical cream with perineal applicator APPLY TO NOSE TWO TIMES A DAY NEEDED active Not Available Not Available No t Available famotidine 20 mg tablet Take 2 tablet by mouth twice a day 1-2 tabs bid 03/12 completed Not Available Not Available Not Available lorazepam 0.5 mg tablet 1 TAB - 07/15 completed Not Available Not Available Not Available dicyclomin e 20 mg tablet TAKE ONE TABLET BY MOUTH THREE TIMES A DAY NEEDED FOR BOWEL SPASMS 10/14 completed Not Available Not Available Not Available ranitidine 75 mg tablet Take 1 tab by mouth daily as needed for heartbur n 2017 active Not Available Not Available Not Avai lable prednisone 1 mg tablet Take 2 tablet by mouth once a day 03/12 completed Not Available Not Available Not Available nifedipine 10 mg capsule lerner capsule and swallow contents once if needed for blood pressure over 170 active [facility] Not Available Not Available No t Available phenazopyr idine 100 mg tablet TAKE ONE TABLET BY MOUTH THREE TIMES A DAY NEEDED FOR BLADDER INFECTIO N 10/07 completed Not Available Not Available Not Available pantoprazo le 40 mg tablet,del ayed release TAKE ONE TABLET BY MOUTH TWICE A DAY active Not Available Not Available No t Available Hyzaar 100 mg-25 mg tablet Take 1 tab by mouth daily 2018 active Not Available Not Available Not Avai lable neomycin-p olymyxin-d exameth 3.5 mg/mL-10,0 00 unit/mL-0. 1% eye drops INSTILL 1 DROP INTO LEFT EYE 4 TIMES A DAY FOR 7 DAYS 10/14 completed Not Available Not Available Not Available Cipro 500 mg tablet 1 TAB BID 02/05 completed Not Available Not Available Not Available nystatin 100,000 unit/gram topical cream apply twice daily to affected area 02/14 completed Not Available Not Available Not Available irbesartan 300 mg-hydroch lorothiazi de 12.5 mg tablet Take 1 tab by [...] Not Available Not Available omeprazole 20 mg capsule,de layed release Take 1 capsule by mouth twice [...] completed Not Available Not Available Not Available hydrochlor othiazide 25 mg tablet 1 tab daily 07/20 completed Not Available Not Available Not Available Levaquin 500 mg tablet 1 TAB daily 09/04 completed Not Available Not Available Not Available metoprolol succinate ER 25 mg tablet,ext ended release 24 hr TAKE ONE-HALF TABLET BY MOUTH TWICE A DAY 10/26 completed not taking 10/27/23 Not Available Not Available Not Available irbesartan 150 mg tablet Take 1 by mouth daily 07/20 completed Not Available Not Available Not Available lorazepam 1 mg tablet TAKE ONE TABLET BY MOUTH EVERY DAY NEEDED FOR ANXIETY active Not Available Not Available No t Available nifedipine ER 60 mg tablet,ext ended release TAKE 1 TABLET BY MOUTH DAILY 10/26 completed as needed Not Available Not Available Not Available ondansetro n 4 mg disintegra ting tablet DISSOLVE ONE TO TWO TABLETS ON [...] completed Not Available Not Available Not Available fluticason e propionate 50 mcg/actuat ion nasal spray,susp ension 2 spray into both nostrils once a day 10/07 completed Not Available Not Available Not Available Adult Aspirin EC Low Strength 81 mg tablet,del ayed release 1 TAB QD 2011 active Not Available Not Available Not Avai lable dicyclomin e 10 mg capsule TAKE ONE CAPSULE BY MOUTH TWICE A DAY NEEDED STOMACH SPASMS active not taking 10/27/23 Not Available Not Available Not Available amoxicilli n 875 mg-potassi um clavulanat e 125 mg tablet Take 1 tablet by mouth twice a day 10/26 completed Not Available Not Available Not Available simethicon e 80 mg chewable tablet Take 1 tablet every 6 hours by oral route as needed for 7 days, for bloating or gas. 2023 active Not Available Not Available Not Avai lable neomycin 3.5 mg/g-polym yxin B 10,000 unit/g-dex ameth 0.1 % eye oint APPLY A 1-INCH RIBBON ON AFFECTED EYELID(S ) TWO TIMES A DAY FOR 8 WEEKS 10/07 completed Not Available Not Available Not Available Estrace 0.01% (0.1 mg/gram) vaginal cream apply pea-size d amount to external vulva daily x 1 week then 2-3x/wee k 2018 active Not Available Not Available Not Avai lable azithromyc in 500 mg tablet TAKE ONE TABLET BY MOUTH EVERY DAY FOR 3 DAYS FOR TRAVELER 'S DIARRHEA WITH FEVER 12/31 completed Not Available Not Available Not Available ezetimibe 10 mg tablet TAKE ONE TABLET BY MOUTH EVERY DAY 10/14 completed Not Available Not Available Not Available Lovenox 300 mg/3 mL subcutaneo us solution 70 mg subcutan eously twice a day 06/28 completed Not Available Not Available Not Available nitrofuran toin monohydrat e/macrocry stals 100 mg capsule TAKE ONE CAPSULE BY MOUTH TWICE A DAY FOR BLADDER INFECTIO N 10/07 completed Not Available Not Available Not Available chlorhexid ine gluconate 0.12 % mouthwash BRUSH AND FLOSS TEETH, RINSE REGULAR TOOTHPAS TE OUT. SWISH 15ML FOR 30 SECONDS, THEN [...] completed Not Available Not Available Not Available Simethicon e-80 1 TAB four times daily 07/19 completed Not Available Not Available Not Available Zostavax (PF) once IM 04/01 completed Not Available Not Available Not Available hydrochlor othiazide 12.5 mg tablet TAKE ONE TABLET BY MOUTH EVERY DAY active Not Available Not Available No t Available Prevnar 13 (PF) 0.5 mL intramuscu lar syringe 0.5ml IM inj 11/15 completed Not Available Not Available Not Available Xarelto 10 mg tablet Take 1 tablet by mouth once a day 2023 active Not Available Not Available Not Avai lable Xarelto 20 mg tablet Take 1 tablet by mouth once a day 2020 active Not Available Not Available Not Avai lable potassium chloride ER 20 mEq tablet,ext ended release TAKE ONE TABLET BY MOUTH EVERY DAY active Not Available Not Available No t Available psyllium husk 0.4 gram capsule 10/14 completed Not Available Not Available Not Available magnesium 200 mg (as magnesium oxide) tablet prn active Not Available Not Available Not Available Shingrix (PF) 50 mcg/0.5 mL intramuscu lar suspension , kit one IM now and repeat in 2-6 months 12/12 completed Not Available Not Available Not Available Xarelto 2.5 mg tablet 2 tabs daily x 10 days while (and after) taking Paxlovid 04/12 completed Not Available Not Available Not Available Paxlovid 300 mg (150 mg x 2)-100 mg tablets in a dose pack TAKE 2 NIRMATRE LVIR TABLETS AND 1 RITONAVI R TABLET TOGETHER BY MOUTH TWICE DAILY FOR [...] 179 mm[Hg] 79 mm[Hg] ELISHA SCOTT MA [facility] 4 14:13:49 Social History Question Answer Notes LastModified by Organizat ion Details LastModified Time Tobacco Smoking Status Former Smoker SUHAIL MCGEE RN [facility], [facility] 12/31/2022 16:07:55 Do You Have An Advance Directive? Yes Information not available 12/31/2022 When Did You Quit Smoking? 16+yearssinc elastcigaret te Information not available 12/31/2022 Are There Any Guns Present In Your Home? No Information not available 12/31/2022 Do You Have A Medical Power Of Overlay Plastician? Yes Information not available 12/31/2022 Do You Have Smoke And Carbon Monoxide Detectors In Your Home? Yes Information not available 12/31/2022 At What Age Did You Start Smoking Tobacco? 20 Information not available 12/31/2022 Are You Passively Exposed To Smoke? No Information not available 12/31/2022 Are There Any Smokers In Your House? [email or web address] Information not available 12/31/2022 Sex: Female Functional [...] Recorded Time Tdap 07/15/2012 completed Not Available [facility] 03:53:28 zoster live 05/08/2009 completed Not Available [facility] 12/27/2022 03:53:29 Influenza, high-dose, trivalent, PF 10/25/2016 completed Not Available [facility] 12/27/2022 03:53:29 Influenza, high-dose, trivalent, PF 12/04/2017 completed Not Available [facility] 12/27/2022 03:53:29 Td(adult) unspecified formulation 02/03/2006 completed Not Available [facility] 12/27/2022 03:53:29 Influenza, split virus, trivalent, preservative 2014 completed Not Available [facility] 12/27/2022 03:53:30 Influenza, split virus, trivalent, preservative 11/16/2015 completed Not Available [facility] 12/27/2022 03:53:30 Influenza, high-dose, quadrivalent, PF 12/15/2019 completed Not Available [facility] 12/27/2022 03:53:31 COVID-19, mRNA, LNP-S, PF, 100 mcg/0.5mL dose or 50 mcg/0.25mL dose 04/27/2021 completed Not Available [facility] 12/27/2022 03:53:31 COVID-19 vaccine, vector-nr, rS-Ad26, PF, 0.5 mL 06/13/2020 completed Not Available [facility] 12/27/2022 03:53:32 COVID-19 vaccine, vector-nr, rS-Ad26, PF, 0.5 mL 12/12/2020 completed Not Available [facility] 12/27/2022 03:53:32 Pneumococcal conjugate PCV20, polysaccharide [id number] conjugate, adjuvant, PF 04/20/2022 completed Not Available [facility] 12/27/2022 03:53:32 COVID-19, mRNA, LNP-S, PF, 50 mcg/0.5 mL dose 01/17/2022 completed Not Available [facility] 12/27/2022 03:53:32 pneumococcal polysaccharide PPV23 07/15/2012 completed Not Available [facility] 2022 03:53:33 Hep B, unspecified formulation 05/08/2009 completed Not Available [facility] 12/27/2022 03:53:33 Hep A, unspecified formulation 10/14/2014 completed Not Available [facility] 12/27/2022 03:53:33 Hep A, unspecified formulation 02/03/2006 completed Not Available [facility] 12/27/2022 03:53:33 influenza, unspecified formulation 11/27/2001 completed Not Available [facility] 12/27/2022 03:53:34 influenza, unspecified formulation 11/29/2009 completed Not Available [facility] 12/27/2022 03:53:34 influenza, unspecified formulation 12/11/2007 completed Not Available [facility] 12/27/2022 03:53:34 influenza, unspecified formulation 12/11/2011 completed Not Available [facility] 12/27/2022 03:53:34 influenza, unspecified formulation 12/28/2021 completed Not Available [facility] 12/27/2022 03:53:34 influenza, unspecified formulation 01/02/2006 completed Not Available [facility] 12/27/2022 03:53:34 influenza, unspecified formulation 01/07/2003 completed Not Available [facility] 12/27/2022 03:53:34 influenza, unspecified formulation 01/25/2005 completed Not Available [facility] 12/27/2022 03:53:35 influenza, unspecified formulation 01/25/2013 completed Not Available [facility] 12/27/2022 03:53:35 polio, unspecified formulation 03/10/2006 completed Not Available [facility] 12/27/2022 03:53:35 polio, unspecified formulation 09/08/2006 completed Not Available [facility] 12/27/2022 03:53:35 polio, unspecified formulation 02/03/2006 completed Not Available [facility] 12/27/2022 03:53:35 typhoid, unspecified formulation 10/14/2014 completed Not Available [facility] 12/27/2022 03:53:36 typhoid, unspecified formulation 02/03/2006 completed Not Available [facility] 12/27/2022 03:53:36 influenza, unspecified formulation 12/18/2022 completed LINDEN BELL, [facility] 12/31/2022 16:14:04 SARS-COV-2 (COVID-19) vaccine, UNSPECIFIED 12/18/2022 completed LINDEN BELL, [facility] 12/31/2022 16:14:46 Past Encounters Encounter ID Performer Location Encounter Start Date Encounter Closed Date Diagnosis/Indication Diagnosis SNOMED-CT Code Diagnosis ICD10 Code [id number] Zee Mott PA-C [address] [address] 10/08/2023 13:46:51 10/08/2023 15:00:54 Herpesvirus infection 18124778 B00.9 Epigastric pain 10111742 R10.13 Abdominal bloating 79478 9008 R14.0 Hypomagnesemia 874114042 E83.42 Asymptomat ic microscopic hematuria [id number] 8310868 R31.21 Increased blood pressure 73563323 R03.0 Health Concerns Section Related Observation LastModified by Organization Detai ls LastModified Time None Recorded Concern Status LastModified by Organization Details LastModified Time None Recorded Payers Encounter Date Sequence Insurance Name Policy Number Policy Baez Covered Member ID Baez Member ID Guarantor Name 10/08/2023 1 [place]ICARE [place] [employer] Abby Ruffin [id number] Abby Ruffin Notes Date Note Type [...] hemoptysis. She has appt with GI in [place] at unknown time in the future. [address], [place], [address], [facility]. 10/08/2023 17:46:24 OBGyn Episode No OBEpisode recorded.
--- OUTSIDE RECORDS SUMMARY | 2023-12-12 09:42 | XMS_ITS | Encounter Summary ---
Author Organization [facility] [place] [address] Care Team Providers Care Systems Tester Name Role Phone Candie Skaggs MD Primary Care Provider [phone] Reason for Referral * Consultation (Routine) - Closed Specialty Diagnoses / Procedures Referred By Ko duarte Referred To Contact Gastroenterology Diagnoses Functional dyspepsia Benita Mclean MD [facility] [place] [address] [facility] [address] [address] Referral ID Status Reason Start Date Expiration Date V isits Requested Visits Authorized [id number] Closed Consult, Test & Treat 10/13/2023 10/12/2024 1 1 Encounter Details Date Type Department Care Team (Late st Contact Info) Description 10/13/2023 Orders [place] [address] Benita Mclean MD [facility] [place] [address] Functional dyspepsia Social History Tobacco Use Types Packs/Day Years Used Date Smoking Tobacco: Former Cigarettes 0.5 3 Smokeless Tobacco: Former Quit: 06/22/1979 Alcohol Use Standard Drinks/Week Comments Yes 2 (1 standard drink = 0.6 oz pur e alcohol) [facility] Utilities Answer Date Recorded In the past [...] any time in the past 12 m [facility], were you homeless or living in a correction (including now)? No 10/13/2023 IPV Inpatient Questions [...] stomach documented in this encounter Care Teams Systems Tester Relationship Specialty Start Date End Date Candie Skaggs MD [address] [place] [address] PCP - General Family Medicine 03/19/19 documented as of this encounter
--- OUTSIDE RECORDS SUMMARY | 2023-12-12 09:42 | XMS_ITS | Encounter Summary ---
Author Organization [facility] [place] [address] Care Team Providers Care Swimming Pool Serviceperson Name Role Phone Candie Skaggs MD Primary Care Provider [phone] Reason for Visit * Auth/Cert (Routine) Specialty Diagnoses / Procedures Referred By Contbrendan t Referred To Contact Diagnoses Upper abdominal pain Hypertensive urgency More Barlow MD [facility] [place] [address] [facility] Referral ID Status Reason Start Date Expiration Date Visits Re quested Visits Authorized [id number] 1 1 Encounter Details Date Type Department Care Team (Late st Contact Info) Description 10/13/2023 10:14 AM EDT Anesthesia [place] [address] Guilherme Alvarado MD [facility] DR [place] [address] Anesthesia Record Procedure Summary Procedure Name Responsible [...] Type Details Placement Removal PIV 10/11/23; 1400; peln-jhs-vflvvl catheter system; 20 gauge; median cubital vein [...] drink = 0.6 oz pur e alcohol) [facility] Utilities Answer Date Recorded In the past 12 months has th e electric, gas, oil, or water [employer] threatened to shut off services in your [...] any time in the past 12 m [facility], were you homeless or living in a senior living (including now)? No 10/13/2023 DH IPV Inpatient [...] Procedure Summary Date: 10/13/23 Room / Location: [facility] ENDO 3 / [facility] ENDOSCOPY Anesthesia Start: 1014 Anesthesia Stop: 103 Procedure: EGD WITH BIOPSY (WRVU 2.39) (Trunk) Diagnosis: (Wt loss) Surgeons: Geovanni Bell MD Responsible Provider: Guilherme Alvarado MD Anesthesia Type: MAC ASA Status: 3 All Anesthesia Providers: Anesthesiologist: Guilherme Alvarado MD [employer] [facility]: Roslyn Gaona CRNA Vitals Value Taken Time BP 142/77 10/13/23 1100 Temp Pulse Resp 16 10/13/23 1040 SpO2 95 % 10/13/23 1109 Pain Level 0 10/13/23 1040 Vitals shown include unfiled device data. Patient Location: PACU/[facility] Level of Consciousness: Awake and Alert [...] y.o. female. Procedure(s): [facility] Patient Active Problem List Diagnosis Date [...] injury, blindness, adverse drug reactions, awareness, stroke, [place], , among others. All questions answered to [...] consented to blood products. Plan discussed with [employer]. Anesthesia Screening documented in this encounter Plan [...] mg documented in this encounter Care Teams Swimming Pool Serviceperson Relationship Specialty Start Date End Date Cadnie Skaggs MD [address] [place] [address] PCP - General Family Medicine 03/19/19 documented as of this encounter
--- OUTSIDE RECORDS SUMMARY | 2023-12-12 09:43 | XMS_ITS | Encounter Summary ---
Author Organization [facility] [place] [address] Care Team Providers Care Boat Worker Name Role Phone Estee Novak APRN Primary Care Provider [phone] Reason for Visit * Reason Onset Date Comments Advice Only 03/12/2011 regarding labs f or upcoming yosef't in April Encounter Details Date Type Department Care Team (Late st Contact Info) Description 03/12/2011 Telephone Hematology [place] [id number] Amarilis Jacobs, die casting machine setter Only (regarding labs for upcoming yosef't in [...] Ruffin called in regards to his Abby Maciel#[id number]. He had some questions about maybe having labs before her appointment in April. She had a clot in the spring and was put on Coumadin, but now her PCP has taken her off this, she is doing fine but now thinking that maybe she shouldhave prior lab work done. h- [phone] Roxy Mondragon Clinical [place] [facility] documented in this encounter Plan of Treatment Not on file documented as of this encounter Visit Diagnoses Not on filedocumented in this encounter Care Teams Boat Worker Relationship Specialty Start Date End Date Estee Novak APRN PCP - General 01/09/10 10/12/14 documented as of this encounter
--- OUTSIDE RECORDS SUMMARY | 2023-12-12 09:43 | XMS_ITS | Encounter Summary ---
Author Organization [facility] [place] [address] Care Team Providers Care Steam Shovelman Name Role Phone Estee Novak APRN Primary Care Provider [phone] Encounter Details Date Type Department Care Team (Late st Contact Info) Description 07/30/2013 2:50 PM EDT Office Visit Dermatology at [address] [address] Noble Moseley MD [address] [facility] [place] [address] Squamous cell carcinoma (Primary Dx) Social History [...] - 07/30/2013 3:25 PM EDT Problem: Left episcopalian lesion. Abby is a 77-year-old woman who is referred today by Dr. 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 Apparently this was treated with LN2 about two years ago and did not resolve when she as down at [facility]. She has a history of a moderately [...] six months for repeat check. COPY: Anoop [email or web address]. documented in this encounter Plan of Treatment Not on file documented as of this encounter Visit Diagnoses Diagnosis Squamous cell carcinoma- Primary Other malignant neoplasm without specification of site documented in this encounter Care Teams Steam Shovelman Relationship Specialty Start Date End Date Estee Novak APRN PCP - General 01/09/10 10/12/14 documented as of this encounter
--- OUTSIDE RECORDS SUMMARY | 2023-12-12 09:43 | XMS_ITS | Encounter Summary ---
Author Organization [facility] [place] [address] Care Team Providers Care Rn Telephone Triage Name Role Phone Estee Novak APRN Primary Care Provider [phone] Encounter Details Date Type Department Care Team (Latest Contact Info) Description 01/14/2011 3:40 PM EST - 01/14/2011 11:59 PM EST Hospital Encounter Non-Invasive [place] [phone] Alexandra Hong RN Palpitations Discharge Disposition: Home [...] Palpitations documented in this encounter Care Teams Rn Telephone Triage Relationship Specialty Start Date End Date Estee Novak APRN PCP - General 01/09/10 10/12/14 documented as of this encounter
--- OUTSIDE RECORDS SUMMARY | 2023-12-12 09:43 | XMS_ITS | Encounter Summary ---
Author Organization [facility] [place] [address] Care Team Providers Care Spool Worker Name Role Phone Estee Novak APRN Primary Care Provider [phone] Encounter Details Date Type Department Care Team (Late st Contact Info) Description 01/14/2011 Abstract Cardiology at [address] [phone] Sarah Morales LPN Social History Tobacco Use [...] on filedocumented in this encounter Care Teams Spool Worker Relationship Specialty Start Date End Date Estee Novak APRN PCP - General 01/09/10 10/12/14 documented as of this encounter
--- OUTSIDE RECORDS SUMMARY | 2023-12-12 09:43 | XMS_ITS | Encounter Summary ---
Author Organization [facility] [place] [address] Care Team Providers Care Dipper Machine Operator Name Role Phone Redwood, Estee Andino APRN Primary Care Provider [phone] Reason for Visit * Reason Comments Advice Only NPW Pulmonary Embolism Encounter Details Date Type Department Care Team (Late st Contact Info) Description 03/18/2011 1:00 PM EST Office Visit [place] [phone] Adura Fields MD [facility] [address] [place] [address] Pulmonary embolism (Primary Dx) Discharge Disposition: Home [...] Fields MD - 03/18/2011 2:41 PM EST [facility] Department of Medicine [place] [address] [facility] THROMBOSIS CONSULTATION DATE [...] advil without relief and presented to the [facility] ER as the pain worsened. The pain was described as sharpand stabbing, like a knife, and was not associated with respiratory symptoms including shortness ofbreath and no cold or flu-like symptoms. A CTPA at [facility] showed a segmental PE involving the right lower lobe and she was transferred to [facility] for further treatment [...] stopping warfarin. 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 Irrespective of the presence or absence of [...] recommendations at that time. Audra Fields MD Senior Tax Accountant, [facility] documented in this [...] (03/18/2011 2:20 PM EST) Prothrombin Mutation Negative [facility] Prothrombin Mutation Interp RESULT: [place] [address] (G->A) [place] IN THE 3' UNTRANSLATED REGION OF THE PROTHROMBIN GENE. METHODS: The region of interest in the Prothrombin gene [87264 (G->A)] is interrogated using the Third Wave [...] determined by the Molecular Pathology Laboratory at [facility]. This test is used for clinical purposes and should not be considered as investigational or for research purposes. ??It has not been cleared or approved by the U.S. Food and Drug Administration. However, as a C.L[place]A. licensed laboratory, our facility is approved for such high complexity clinical testing. [facility] Comment: [VERIFIED DATE]03.22.11 Verified By:Lizy Quesada MD Pathologist (Electronic Signature) Blood specimen (specimen) 03/18/2011 2:20 PM EST 03/19/2011 7:33 AM EST Audra Fields MD [facility]EMATOLOGY ORDERAB LES [facility] * (ABNORMAL) PROTEIN S ACTIVITY (03/18/2011 2:20 PM EST) Protein S Act 134(H) 65 - 123 % activity [facility] Blood specimen (specimen) 03/18/2011 2:20 PM EST 03/18/2011 2:25 PM EST Audra Fields MD HEMATOLOGY ORDERAB LES [facility] * (ABNORMAL) PROTEIN C ACTIVITY (03/18/2011 2:20 PM EST) Protein C Activity 200(H) 67 - 156 % activity [facility] MILLENNI[facility] Blood specimen (specimen) 03/18/2011 2:20 PM EST 03/18/2011 2:25 PM EST Audra Fields MD HEMATOLOGY ORDERAB LES [facility] * (ABNORMAL) ANTITHROMBIN (03/18/2011 2:20 PM EST) Antithrombin III Assay 128(H) 80 - 120 % [facility] Blood specimen (specimen) 03/18/2011 2:20 PM EST 03/18/2011 2:25 PM EST Audra Fields MD HEMATOLOGY ORDERAB LES [facility] * APC RESISTANCE (03/18/2011 2:20 PM EST) Activated Protein C Resistance 2.45 >=2.00 [facility]ILL[facility]NI[facility] Blood specimen (specimen) 03/18/2011 2:20 PM EST 03/18/2011 2:25 PM EST Audra Fields MD HEMATOLOGY ORDERAB LES Performing Organization Address [facility] de Phone Number [facility] [email or web address] * BETA-2 GLYCOPROTEIN ANTIBODIES (03/18/2011 2:20 PM EST) Beta 2 Glycoprotein, IgG <21 <=20 unit(s) [facility] Comment: Ranges ?Units ----- ? ----- Normal ? <21 Low Positive (+) ?21-50 Moderate Positive (+) ? 51-100 High Positive (+) ?>100 Beta 2 Glycoprotein, IgM <21 <=20 unit(s) [facility] Comment: Ranges ? Units ----- ?----- Normal ?<21 Low Positive (+) ? 21-50 Moderate Positive (+) ?51-100 High Positive (+) ? >100 B2GPI Interp see comment [facility] Comment:See Thrombosis Joann n Report in eDH under Coagulation Reports Blood specimen (specimen) 03/18/2011 2:20 PM EST 03/19/2011 8:07 AM EST Audra Fields MD IMMUNOLOGY ORDERAB LES Performing Organization Address [facility] Co de Phone Number [facility] * HOMOCYSTEINE TOTAL, PLASMA (03/18/2011 2:20 PM EST) Homocystine 9 5 - 12 mcmol/L [facility] Comment: Reference Range applies to fasting specimens only. Note change of reference range from 5-15 mcmol/L to 5-12 mcmol/L on 09/20/08. Blood specimen (specimen) 03/18/2011 2:20 PM EST 03/19/2011 8:16 AM EST Audra Fields MD CHEMISTRY ORDERABL ES [facility] * CARDIOLIPIN ANTIBODY SCREEN (03/18/2011 2:20 PM EST) Cardiolipin Antibody IgG <23 <=22 GPL unit(s) [facility] Comment: Ranges ? GPL ------- ? ------ Normal ?<23 Low Positive ? 23-35 Moderate Positive ?36-50 High Positive ? >50 Cardiolipin Antibody IgM <11 <=10 MPL unit(s) [facility] Comment: Ranges ?MPL ----- ?----- Normal ?<11 Low Positive ? 11-20 Moderate Positive ?21-30 High Positive ? >30 Blood specimen (specimen) 03/18/2011 2:20 PM EST 03/19/2011 8:07 AM EST Audra Fields MD IMMUNOLOGY ORDERAB LES Performing Organization Address [facility] Co de Phone Number [facility] * THS REPORT (03/18/2011 2:20 PM EST) THS Report See Comment [facility] Comment: See Thrombosis Screen Report [id number] under Coagulation Reports Blood specimen (specimen) 03/18/2011 2:20 PM EST 03/18/2011 2:25 PM EST Audra Fields MD HEMATOLOGY ORDERAB LES Performing Organization Address [facility] de Phone Number [facility] * PLAT (03/18/2011 2:20 PM EST) Platelet 288 145 - 370 x10(3)/mcL [facility] Blood specimen (specimen) 03/18/2011 2:20 PM EST 03/18/2011 2:25 PM EST Audra Fields MD HEMATOLOGY ORDERAB LES Performing Organization Address [facility] de Phone Number [facility] * LANT (03/18/2011 2:20 PM EST) Lupus Anticoagulant Neg Neg [facility] Blood specimen (specimen) 03/18/2011 2:20 PM EST 03/18/2011 2:25 PM EST Audra Fields MD HEMATOLOGY ORDERAB LES Performing Organization Address [facility]/ZIP Co de Phone Number [facility] * TT (03/18/2011 2:20 PM EST) Thrombin Time 16 15 - 20 sec [facility] Blood specimen (specimen) 03/18/2011 2:20 PM EST 03/18/2011 2:25 PM EST Audra Fields MD HEMATOLOGY ORDERAB LES Performing Organization Address [facility] de Phone Number [facility] * FIBR (03/18/2011 2:20 PM EST) Fibrinogen 327 200 - 470 mg/dL [facility] Blood specimen (specimen) 03/18/2011 2:20 PM EST 03/18/2011 2:25 PM EST Audra Fields MD HEMATOLOGY ORDERAB LES Performing Organization Address [facility] Phone Number [facility] * PTT (03/18/2011 2:20 PM EST) Partial Thromboplastin Time 25 25 - 35 sec [facility] Comment: Recommended therapeutic PTT range for full dose unfractionated heparin is 80-114 seconds. Blood specimen (specimen) 03/18/2011 2:20 PM EST 03/18/2011 2:25 PM EST Audra Fields MD HEMATOLOGY ORDERAB LES Performing Organization Address [facility] Phone Number [facility] * PT (03/18/2011 2:20 PM EST) Prothrombin Time 12.9 12.3 - 14.7 sec [facility] Comment: [facility] Transfusion Committee Guidelines: INR less than [...] MD HEMATOLOGY ORDERAB LES Performing Organization Address [facility] de Phone Number [facility] * D-Dimer, Quantitative (03/18/2011 2:20 PM EST) [facility] D-Dimer 201 0 - 500 FEU ng/ml [facility] Comment: The D-Dimer assay is used [...] MD HEMATOLOGY ORDERAB LES Performing Organization Address [facility] de Phone Number [facility] * THROMBOSIS SCREEN REPORT (03/18/2011 2:15 PM EST) [facility] Thrombosis Screen Report ? [facility] ? Provider: ?? Diamond SMITH, ?Pt. Name: ?? LALY NELSY Chavez ?Audra Laguna ? Acc #: ?[id number] ? Pt. ? Col Date: ?? 03/18/2011 [...] ?(IgM <11 MPL) ? <11 MPL ? Cllc-9-pzbjyerokiao- 1 antibodies ??(IgG <21 units) ? IgG <21 units ? Hotf-0-xeyxgzadupxw- 1 antibodies ??(IgM <21 units) ? IgM <21 units ? Homocysteine, random, plasma ?(<12 umol/L) ?9 umol/L ? Prothrombin (36332 G->A) mutation (normal) ?negative ? * Functional [...] presence of factor V Leiden. ??The ? [facility] ? Provider: ?? Diamond SMITH, ?Pt. Name: ?? NELSY RUFFIN ?Audra Edmond. ? Acc #: ?[id number] ? Pt. ? Col Date: ?? 03/18/2011 [...] infarction documented in this encounter Care Teams Dipper Machine Operator Relationship Specialty Start Date End Date Estee Stinson APRN PCP - General 01/09/10 10/12/14 documented as of this encounter
--- OUTSIDE RECORDS SUMMARY | 2023-12-12 09:43 | XMS_ITS | Encounter Summary ---
Author Organization [facility] [place] [address] Care Team Providers Care Media Consultant Name Role Phone Terrell, Estee Andino APRN Primary Care Provider [phone] Reason for Visit * Reason Onset Date Comments Results 02/26/2011 Encounter Details Date Type Department Care Team (Late st Contact Info) Description 02/26/2011 Telephone Cardiology at [address] [phone] George Jalloh MD [facility] [place] [address] Results Social History Tobacco Use Types Packs/Day [...] encounter Miscellaneous Notes * Telephone Encounter - MayMary velazco - 02/26/2011 9:45 AM EST Patient called quite concerned as to why she did not get any results on her Zio Patch that was put on 01/14. She would like to be contacted with the results. documented in this encounter Plan of Treatment Not on file documented as of this encounter Visit Diagnoses Not on filedocumented in this encounter Care Teams Media Consultant Relationship Specialty Start Date End Date Estee Novak APRN PCP - General 01/09/10 10/12/14 documented as of this encounter
--- OUTSIDE RECORDS SUMMARY | 2023-12-12 09:43 | XMS_ITS | Encounter Summary ---
Author Organization [facility] Address [facility] [place] [address] Care Team Providers Care Molding Engineer Name Role Phone Candie Skaggs MD Primary Care Provider [phone] Encounter Details Date Type Department Care Team (Latest Contact Info) Description 04/04/2022 2:53 PM EST - 04/04/2022 4:12 PM EST Hospital Encounter XRay at [address] [place] [phone] Lino Duke MD Bilateral hip pain Discharge [...] Tablet Take 10 mg by mouth daily. latanoprost (Xalatan) 0.005 % Drops latanoprost 0.005 % eye drops INSTILL ONE DROP INTO BOTH EYE AT BEDTIME - SHAKE BEFORE USE 10/31/2020 10/27/2023 documented as of this encounter Plan of [...] who have questions please contact the health insurance healthcare representative that requested your imaging first. ? Electronically signed by: Yolanda Tripp MD, [facility] ([phone]), at 04/05/2022 9:46 AM Narrative 04/05/2022 9:46 [...] patients who have questions please contactthe health insurance healthcare representative that requested your imaging first. Lino Duke MD IMG DX ORDERABLES documented in this encounter Visit Diagnoses Diagnosis Bilateral hip pain Pain in joint, pelvic region and thigh documented in this encounter Care Teams Molding Engineer Relationship Specialty Start Date End Date Candie Skaggs MD [address] [place] [address] PCP - General Family Medicine 03/19/19 documented as of this encounter
--- OUTSIDE RECORDS SUMMARY | 2023-12-12 09:43 | XMS_ITS | Encounter Summary ---
Author Organization [facility] [place] [address] Care Team Providers Care Real Estate Sales Associate Name Role Phone Candie Skaggs MD Primary Care Provider [phone] Encounter Details Date Type Department Care Team (Latest Contact Info) Description 10/11/2023 Travel Social History Tobacco Use Types Packs/Day Years Used Date Smoking Tobacco: Former Cigarettes 0.5 3 Smokeless Tobacco: Former Quit: 06/22/1979 Alcohol Use Standard Drinks/Week Comments Yes 2 (1 standard drink = 0.6 oz pur e alcohol) IPV Inpatient Questions Answer Date Recorded Does [...] on filedocumented in this encounter Care Teams Real Estate Sales Associate Relationship Specialty Start Date End Date Candie Skagsg MD [address] [place] [address] PCP - General Family Medicine 03/19/19 documented as of this encounter
--- OUTSIDE RECORDS SUMMARY | 2023-12-12 09:43 | XMS_ITS | Encounter Summary ---
Author Organization [facility] [place] [address] Care Team Providers Care Painting Instructor Name Role Phone Stefan Arteaga MD Primary Care Provider [phone] Encounter Details Date Type Department Care Team (Late st Contact Info) Description 05/02/2017 [place] [phone] Milagros Alexander MD [facility] [place] [address] Social History Tobacco Use Types Packs/Day Years [...] 05/02/17 Initial contact time: 12:42pm Referring Provider: [facility] Patient Location: [facility] Presenting Symptoms [...] gtt, OSH to recontact transfer center. As [facility] currently full with no expected further dischargestoday, accepted patient but suggested OSH also explore other transfer options. Will let us know if they transfer somewhere else. Milagros Alexander MD Drama Teacher documented in this encounter Plan of Treatment Not on file documented as of this encounter Visit Diagnoses Not on filedocumented in this encounter Care Teams Painting Instructor Relationship Specialty Start Date End Date Stefan Arteaga MD PCP - General 10/13/14 03/18/19 documented as of this encounter
--- OUTSIDE RECORDS SUMMARY | 2023-12-12 09:43 | XMS_ITS | Encounter Summary ---
Author Organization [facility] [place] [address] Care Team Providers Care Freelance Court Reporter Name Role Phone Candie Skaggs MD Primary Care Provider [phone] Encounter Details Date Type Department Care Team (Late st Contact Info) Description 05/22/2021 Telephone Dermatology at [facility] [address] [place] [phone] Geovanni Champagne MD [facility] DR D[place] [address] Social History Tobacco Use Types Packs/Day Years [...] with other providers, but no. Please call [phone]. Thank you, Maye documented in this encounter Plan of Treatment Not on file documented as of this encounter Visit Diagnoses Not on filedocumented in this encounter Care Teams Freelance Court Reporter Relationship Specialty Start Date End Date Candie Skaggs MD [address] [place] [address] PCP - General Family Medicine 03/19/19 documented as of this encounter
--- OUTSIDE RECORDS SUMMARY | 2023-12-12 09:43 | XMS_ITS | Encounter Summary ---
[place] [address] Care Team Providers Care Supervisor Shearing Name Role Phone Stefan Arteaga MD Primary Care Provider [phone] Encounter Details Date Type Department Care Team (Late st Contact Info) Description 05/02/2017 External [place] [address] Social History Tobacco Use Types [...] filedocumented in this encounter Care Teams Supervisor Shearing Relationship Specialty Start Date End Date Stefan Arteaga MD PCP - General 10/13/14 03/18/19 documented as of this encounter
--- OUTSIDE RECORDS SUMMARY | 2023-12-12 09:43 | XMS_ITS | Encounter Summary ---
Author Organization [facility] [place] [address] Care Team Providers Care Battery Tester And Repairer Name Role Phone Estee Novak APRN Primary Care Provider [phone] Encounter Details Date Type Department Care Team (Latest Contact Info) Description 07/02/2010 1:45 PM EDT - 07/02/2010 11:59 PM EDT Hospital [place] [address] Unknown None Discharge Disposition: Home [...] 12.3 - 14.7 sec MAO MARTÍNEZ Comment: [facility] Transfusion Committee Guidelines: INR less than [...] Estee Novak APRN HEMATOLOGY ORDERABLE S MAO MARTNÍEZ documented in this encounter Visit Diagnoses Not on filedocumented in this encounter Care Teams Battery Tester And Repairer Relationship Specialty Start Date End Date Estee Novak APRN PCP - General 01/09/10 10/12/14 documented as of this encounter
--- OUTSIDE RECORDS SUMMARY | 2023-12-12 09:43 | XMS_ITS | Encounter Summary ---
Author Organization [facility] [place] [address] Care Team Providers Care Ball Mill Mixer Name Role Phone Kumra Schultz MD Primary Care Provider [phone] Reason for Referral * Consultation (Routine) - Denied Specialty Diagnoses / Procedures Referred By Contac t Referred To Contact Nutrition / Internal Medicine Diagnoses Upper abdominal pain [place] [address] [address] Referral ID Status Reason Start Date Expiration Date V isits Requested Visits Authorized [id number] Denied Consult, Test & Treat 10/13/2023 10/12/2024 1 0 Reason for Visit * Reason Comments Abdominal Pain Fatigue * Auth/Cert (Routine) Specialty Diagnoses / Procedures Referred By Contac t Referred To Contact Diagnoses Upper abdominal pain Hypertensive urgency [place] [address] [facility] Referral ID Status Reason Start Date Expiration Date Visits Re quested Visits Authorized [id number] 1 1 Encounter Details Date Type Department Care Team (Latest Contact Info) Description 10/11/2023 1:39 PM EDT - 10/13/2023 4:00 PM EDT Hospital Encounter Hematology/Oncology Unit Level 1 [place] [address] Karla Faria MD [facility] [place] [address] Phani Garcia DO [facility] [place] [address] [place] [address] [place] [address] Upper abdominal pain; Hypertensive urgency Discharge Disposition: Home Social History Tobacco Use Types Packs/Day Years Used Date Smoking Tobacco: Former Cigarettes 0.5 3 Smokeless Tobacco: Former Quit: 06/22/1979 Alcohol Use Standard Drinks/Week Comments Yes 2 (1 standard drink = 0.6 oz pur e alcohol) [facility] Utilities Answer Date Recorded In the past 12 months has e [employer], gas, oil, or water [employer] threatened to shut off services in your [...] were you homeless or living in a alf (including now)? No 10/13/2023 DH IPV Inpatient [...] Nelsy Ruffin Patient Age: 87 y.o. Language: Jamaican Race: White Ethnicity: Not nor Admit date: [...] please contact your inpatient physician through the [facility] Associate Financial Planner . Issues afterhours and on weekends will [...] found to have hypertensive emergency, admitted to [facility] for further management. CT Angiogram Chest Abdomen [...] 10/11/2023 3:44 PM) Result Value WORKSTATION ID [id number] Impression 1. No aortic dissection or acute [...] who have questions please contact the health resident care associate that requested your imaging first. 10/12 Impression: - Esophagogastric landmarks identified. 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 Biopsied. - Normal stomach. Biopsied. - [...] Covid-19 Vaccine 12/12/2020 Moderna Covid-19 Monovalent 12Yr+ (Mechanical Supervisor 100mcg) 04/27/2021 Pneumococcal Polysaccharide (Pneumovax 23) 07/15/2012 TD Adult 02/03/2006 Tdap 07/15/2012 Typhoid Live, Oral 02/03/2006, 10/14/2014 Typhoid, VICP 04/15/2022 Zoster (Zostavax) LIVE 05/08/2009 Discharge Medications: Your Medications New Medications Dose Details amLODIPine 5 mg tablet Commonly known as: Norvasc Take 1 tablet by mouth daily. 5 mg Quantity: 90 tablet Refills: 3 krnmwmksn-veuhuvfae-dc-mag-sim [id number] mg/30 mL Suspension Take 5 mLs by [...] Your Primary Care Provider: Kumar Schultz MD [phone] For questions regarding this document or issues relating to this hospitalization on the Medical Service, please contact your inpatient physician through the [facility] Associate Financial Planner . Issues afterhours and on weekends will [...] the day after the procedure, use an acmo-rtj-lndvpab spray to numb your throat. Sucking on [...] occurs, please contact your Doctor. Please call [phone] before 8pm Mon-Fri with problems, questions or concerns. If you call after 8pm or on weekends, call the Hospital at [phone] and ask to speak to the [employer] Wafer Breaker automation engineering manager and the separator operator will contact that person for you. When should you call for help? Call [phone] anytime you think you may need emergency [...] any problems. Where can you learn more? [facility] View your After Visit Summary and more online at [email or web address] If you would like to provide [...] cost to you. Content Version: 12.2 ?? 6223-9977 [employer]. Care instructions adapted under license by [facility]. If you have questions about a medical condition or this instruction, always ask your healthcare professional. [employer] disclaims any warranty or liability for your [...] the day after the procedure, use an tqsk-mlt-phxndyv spray to numb your throat. Sucking on [...] occurs, please contact your Doctor. Please call [phone] before 8pm Mon-Fri with problems, questions or concerns. If you call after 8pm or on weekends, call the Hospital at [phone] and ask to speak to the [employer] automation engineering manager and the separator operator will contact that person for you. When should you call for help? Call [phone] anytime you think you may need emergency [...] any problems. Where can you learn more? [facility] View your After Visit Summary and more online at [email or web address] If you would like to provide feedback about your hospital experience, please call the Office of Patient and Family Relations at . If you have received this After Visit Summary in error, please immediately return it in person to the department, or notify the [facility] Privacy Office by calling toll free at between the hours of 8AM and 5PM to arrange for our retrieval of the documents at no cost to you. Content Version: 12.2 ?? 5116-0695 [employer]. Care instructions adapted under license by [facility]. If you have questions about a medical condition or this instruction, always ask your healthcare professional. [employer] disclaims any warranty or liability for your [...] Discharge Instructions * Discharge Instructions* Katharina Martin, [facility] - 10/11/2023 7:55 PM EDT Upper [...] the day after the procedure, use an luyo-wki-ptfdfjl spray to numb your throat. Sucking on [...] occurs, please contact your Doctor. Please call [phone] before 8pm Mon-Fri with problems, questions or concerns. If you call after 8pm or on weekends, call the Hospital at [phone] and ask to speak to the [employer] Wa[employer] automation engineering manager and the separator operator will contact that person for you. When should you call for help? Call [phone] anytime you think you may need emergency [...] After Visit Summary and more online at [email or web address] If you would like to provide [...] cost to you. Content Version: 12.2 ?? 2575-2418 [employer]. Care instructions adapted under license by [facility]. If you have questions about a medical condition or this instruction, always ask your healthcare professional. [employer] disclaims any warranty or liability for your [...] the day after the procedure, use an regr-kiy-prewjwn spray to numb your throat. Sucking on [...] occurs, please contact your Doctor. Please call [phone] before 8pm Mon-Fri with problems, questions or concerns. If you call after 8pm or on weekends, call the Hospital at [phone] and ask to speak to the [employer] automation engineering manager and the separator operator will contact that person for you. When should you call for help? Call [phone] anytime you think you may need emergency [...] any problems. Where can you learn more? [facility] View your After Visit Summary and more online at [email or web address] If you would like to provide [...] cost to you. Content Version: 12.2 ?? 9354-2820 [employer]. Care instructions adapted under license by [facility]. If you have questions about a medical condition or this instruction, always ask your healthcare professional. [employer] disclaims any warranty or liability for your [...] Your Primary Care Provider: Kumar Schultz MD [phone] For questions regarding this document or issues relating to this hospitalization on the Medical Service, please contact your inpatient physician through the [facility] Associate Financial Planner . Issues afterhours and on weekends will [...] Continuous Scheduled amLODIPine 5 mg Oral Daily wekcdqnae-ojfrrccyw-ur-mag-sim 5 mL Oral TID rivaroxaban 10 mg [...] of this encounter: 64.4 kg (142 lb). [place] Body Weight (IBW) (kg): 47.73 Wt Readings [...] interview: 10/12: Nutrition consulted for MST evaluation, feature writer met with Adriana and her at bedside. Adriana reports epigastric pain and nausea, relying on soup and toast for intake lately. She reports 8# weight loss in recent weeks, though unable to quantify UBW. Unsure what is causing epigastric pain, awaiting EGD results. Offered Ensure to supplement intake, trial sent. Nelsy notes GERD and avoiding spicy foods, tomato sauces, and other foods. Data Warehouse Manager also suggested follow up with outpatientRD (consider GI if followed up by GI clinic), pt to reach out to provider. Nutrition Focused Physical Exam: Performed (10/13/23 by HD) . Subcutaneous Fat Loss Orbital region: Mild Upper arm region (triceps/biceps): None present Thoracic and Lumbar regions (ribs, lower back, and maxillary line): Not assessed Lean Muscle Loss Raymond region (temporalis muscle): None present Clavicle bone region (pectoralis major): Mild Dorsal hand (interosseous muscle): Mild Shoulder (deltoid): Mild Scapular bone region (latissimus dorsi, trapezius muscles): Not assessed Thigh region (quadriceps muscle): None present Posterior calf region (gastrocnemius muscle): None present Malnutrition Diagnosis: Not enough data to assess (Marcelo, JPEN J Parenteral Enteral Nutr. 2011; 36(3): 273-83) Nutrition to continue to follow up while inpatient Alicia Jameson. Jonathan, MS, RDN, LD Clinical Nutrition * Valente [...] spent >30 minutes (Day of Discharge Code 83208) involved in the final examination of the [...] with a walker or standby assist with RN/ELECTRIC ORGAN ASSEMBLER AND CHECKER.Patient will possibly have an EGD on 10/11. [...] Daily potassium chloride 10 mEq Intravenous Q2H ingexsmez-nlxuryrlm-ri-mag-sim 5 mL Oral BID losartan 100 mg [...] 10/11/2023 3:44 PM) Result Value WORKSTATION ID [id number] Impression 1. No aortic dissection or acute [...] who have questions please contact the health resident care associate that requested your imaging first. R Studies: Assessment: 87 y.o. female with history of HTN, HLD PE on Xarelto, Haque's esophagus, who presents to the ED,reporting a few day hx of worsening epigastric pain with radiation to her back associated with nausea, and inability to tolerate p.o. intake, found to have hypertensive emergency, admitted to [facility] for further management. GI team to take the pt for EGD tomorrow am. N[place] at [place]. #NSTEMI likely type II i/s/o hypertensive emergency [...] Goals of Care: Team Pager(MD Coverage 09/09): #[phone] PCP: Kumar Schultz MD [phone] Attestation: IPI Certification I certify that I am a D-H credentialed attending provider with admitting privileges and that the patient meets or has met medical necessity to require an inpatient IPI level of care meeting a minimumof two midnights or is on the [facility] inpatient only procedure list (status C) due [...] room air saturating >90%. Pt. Is sinus argneis on Tele. VS stable.IVF infusing per MAR. [...] disease) K21.9 Hyperlipidemia E78.5 Squamous cell carcinoma [id number] History of SCC (squamous cell carcinoma) of [...] Covid-19 Vaccine 12/12/2020 Moderna Covid-19 Monovalent 12Yr+ (Mechanical Supervisor 100mcg) 04/27/2021 Pneumococcal Polysaccharide (Pneumovax 23) 07/15/2012 [...] Negative Leukocytes, Urine Dipstick Negative Negative Specific [place] Urine Automated 1.007 1.005 - 1.030 Appearance, [...] found to have hypertensive emergency, admitted to [facility] for further management. #NSTEMI likely type II [...] Dipstick Negative Leukocytes, Urine Dipstick Negative Specific [place] Urine Automated 1.007 Appearance, Urine Dipstick Clear [...] 10/11/2023 3:44 PM) Result Value WORKSTATION ID [id number] Impression 1. No aortic dissection or acute [...] who have questions please contact the health resident care associate that requested your imaging first. Assessment/plan: Epigastric [...] months and has been seen at hospital vwy-cw-tgsxl for evaluation. She was told that she [...] Rate: 71 [10/11/23 1333] Resp: 16 [10/11/23 133] Temp: 36.7 ??C (98.1 ??F) [10/11/23 1333] Temp src: Temporal [10/11/23 133] SpO2: 98 % [10/11/23 133] O2 Device: RA [10/11/231332] O2 Flow Rate (L/min): n/a Physical Exam [...] in agreement with plan. Renae Cooper CMRN [phone] * Initial Assessments - Renae Cooper RN [...] surrogate would be surrogate decision maker per [place] surrogate decision making law. (Only good for 180 days) spouse Geovanni Any patient receiving care in [place] must abide by [place] law. The hierarchy for surrogate decision making [...] (i) The agent with financial power of civil attorney or a conservator appointed in accordance [...] were you homeless or living in a alf (including now)?: No In the past 12 months has the [employer], gas, oil, or water [employer] threatened to shut off services in your [...] none Home Address confirmed as: [address] [place] [facility] [address] Social & Family Supports: All names listed below confirmed with patient as current and correct Extended Emergency Contact Information Primary Emergency Contact: Geovanni Ruffin Address: [address] [address] [facility] Relation: Spouse Secondary Emergency Contact: Helga [...] Insurance: N/A ; Prescription Coverage: Preferred Pharmacy: [place] [id number] [place] [id number] Status: Patient is a : No Primary Care Provider confirmed: Kumar Schultz MD [phone] Patient/Caregiver Goals of Treatment: return home Potential [...] coordination of care as indicated. Renae Cooper [facility] [phone] * Consult Note - Xavi Monroe MD [...] nutrition in, so she presented to the [facility] ED. In the ED, she was afebrile [...] was normal. She last saw GI at [facility] in 2021. Their plan was to put [...] Daily potassium chloride 10 mEq Intravenous Q2H bbmllyndt-ykfcrhhxw-tr-mag-sim 5 mL Oral BID losartan 100 mg Oral Daily sodium chloride 0.9 % (flush) 5 mL Intravenous BID pantoprazole 40 mg Intravenous BID hydroCHLOROthiazide 12.5 mg Oral Daily Drips: sodium chloride 0.9% with potassium chloride 20 mEq 100 mL/hr (10/11/23 8003) PRN: prochlorperazine OR prochlorperazine, ondansetron, sodium chloride [...] who have questions please contact the health resident care associate that requested your imaging first. RECORDS: Obtained [...] proceed. 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 PLAN: Reasonable to obtain TTE tomorrow for assessment of pericardial effusion We will sign off at this time. Please feel free to reach out with further questions or concerns. Jono Campbell MD Cna Gna * ED Triage - Tex Purcell RN [...] Date/Time Associated Diagnosis Comments GIARDIA/CRYPTOSPORID IUM ANTIGENS ([facility]/CGP/APD/NLH) Routine 10/13/2023 3:50 PM EDT ECHO COMPLETE Routine 10/13/2023 12:52 PM EDT Hypertensive urgency SURGICAL PATHOLOGY Routine 10/13/2023 10 :26 AM EDT Upper Gi Endoscopy, Biopsy (10871) 10/13/2023 10:13 AM EDT Wt loss UPPER [...] PM EDT URINALYSIS BEAKER MICROSCPIC REFLEX EXAM ([facility]) STAT 10/11/2023 2:54 PM EDT URINALYSIS MICROSCOPIC WITH REFLEX TO CULTURE STAT 10/11/2023 2:54 PM EDT URINALYSIS WITH REFLEX CULTURE STAT 10/11/2023 2:54 PM EDT EKG 12-LEAD STAT 10/11/2023 2:49 PM EDT documented in this encounter Results * Giardia/Cryptosporidium Antigens ([facility]/CGP/APD/NLH) (10/13/2023 3:50 PM EDT) Giardia Antigen Negative Negative 12:31 PM EDT [facility] Cryptosporidium Antigen Negative Negative 10/14/2023 12:31 PM EDT [facility] Stool STOOL SPECIMEN / Unknown Non Blood Collection / Unknown 10/13/2023 3:50 PM EDT 10/13/2023 4:41 PM EDT Narrative [facility] - 10/14/2023 12:31 PM EDT Examination for other intestinal parasites requires foreign travel history. Examination for other intestinal parasites requires foreign travel history. Valente Bhatt MD MICROBIOLOGY - GEN ERAL ORDERABLES [facility] [place] [address] * ECHO COMPLETE (10/13/2023 12:52 PM EDT) EF 65 HEARTLAB SYSTEM Anatomical Region Laterality Modality Cardiac Other 10/13/2023 12:1 4 PM EDT Narrative 10/13/2023 1:18 PM EDT [address] [place] [address] ? Echocardiogram Report Name: NELSY RUFFIN ?Study Date: 10/13/2023 12:14 PMBP: 160/72 mmHg ? Patient Location: L1WD 0118 A : 1935 ? Height: 155 cm ? Account: [id number] Age: 87 yrs ? Weight: 64 kg Gender: Female ?BSA: 1.6 m2 Ordering Physician: MORE OROZCO Performed By: LE Palomares Reason For Study: Hypertensive urgency Exam Location: [facility]. Interpretation Summary 1. The left [...] pericardial effusion since at least 2010. Procedure Complete-32379. Satisfactory quality. There is sinus bradycardia. Left [...] Note Eri Patino MD - 10/13/2023 1 [place] [address] Echocardiogram Report Name: NELSY RUFFIN Study Date: 2:14 PMBP: 160/72 mmHg Patient Location: [address] : 1935 Height: 155 cm Account: [id number] Age: 87 yrs Weight: 64 kg Gender: Female BSA: 1.6 m2 Ordering Physician: MORE OROZCO Performed By: LE Palomares Reason For Study: Hypertensive urgency Exam Location: [facility]. Interpretation Summary 1. The left [...] pericardial effusion since at least 2010. Procedure Complete-10215. Satisfactory quality. There is sinus bradycardia. Left [...] Case Report Surgical Pathology Report ? Case: [id number] ? Authorizing Provider: ??Geovanni Bell MD ?Collected: ? 10/13/2023 1026 ? Ordering Location: ? Gastroenterology at [facility] ?? Received: ?10/13/2023 1251 ? Pathologist: ? Judie Ovalle MD ? Specimens: ?? A) - Esophagus, esophagus at 37cm ? B) - Stomach ? C) - Small Bowel, Duodenum ? 10/17/2023 12:27 PM EDT [facility] Final Diagnosis A. Esophagus, esophagus [...] 1 cassette labeled C1. 10/17/2023 12:27 PM [facility] Result Note Routine 10/17/2023 12:27 PM EDT [facility] Tissue ESOPHAGEAL STRUCTURE / Unknown 10/13/2023 10:26 AM EDT 10/13/2023 12:51 PM EDT Comment:Pre-op diagnosis: Wt loss Tissue specimen (specimen) STOMACH STRUCTURE / Unknown 10/13/2023 10:28 AM EDT 10/13/2023 12:51 PM EDT Comment:Pre-op diagnosis: Wt loss Tissue specimen (specimen) DUODENAL STRUCTURE / Unknown 10/13/2023 10:28 AM EDT 10/13/2023 12:51 PM EDT Comment:Pre-op diagnosis: Wt loss Geovanni Bell MD PATHOLOGY/CYTOLOGY Billie FARIAS [facility] [place] [address] * UPPER GI ENDOSCOPY (10/13/2023 9:44 AM EDT) UPPER GI ENDOSCOPY [facility] Endoscopy ___ Procedure Date: 10/13/2023 9:44 AM ? Patient Name: Nelsy Ruffin ? Date of : 1935 ? Age: 87 ? Order #: [id number] ? Instrument Name: [id number] ? ___ Procedure: ? Upper GI endoscopy Indications: ? Chronic dyspepsia and GERD; recent ? 8lb weight loss. Providers: ? Geovanni Bell, Benita Mclean, ? Nickolas Nicolas Referring MD: ?Valente Bhatt Medicines: ? Monitored Anesthesia [...] ? classified as Haque's stage C0-M1 per Aylett ? criteria present at the gastroesophageal junction. [...] classified as Haque's stage C0-M1 ? per Aylett criteria. Biopsied. ? - Normal stomach. Biopsied. [...] - 1.07 mMol/L 10/13/2023 4:55 AM EDT [facility] Blood VENOUS BLOOD SPECIMEN / Unknown IP Care Team Draw / Unknown 10/13/2023 4:07 AM EDT 10/13/2023 4:23 AM EDT More Orozco MD CHEMISTRY ORDERABLES [facility] [place] [address] * (ABNORMAL) Basic Metabolic Panel (10/13/2023 4:07 AM EDT) Glucose 115 65 - 199 mg/dL 10/13/2023 4:55 AM EDT [facility] Comment:Glucose Concentratio n >=200 mg/dL plus symptoms is consistent with Diabetes Mellitus. Blood Urea Nitrogen 10 8 - 18 mg/dL 10/13/2023 4:55 AM EDT [facility] Creatinine 0.95 0.70 - 1.20 mg/dL 10/13/2023 4:55 AM EDT [facility] Sodium 142 135 - 145 mMol/L 10/13/2023 4:55 AM EDT [facility] Potassium 3.2(L) 3.5 - 5.0 mMol/L 10/13/2023 4:55 AM EDT [facility] Chloride 109(H) 98 - 107 mMol/L 10/13/2023 4:55 AM EDT [facility] Carbon Dioxide 20(L) 22 - 31 mMol/L 10/13/2023 4:55 AM EDT [facility] Anion Gap 13 5 - 15 mMol/L 10/13/2023 4:55 AM EDT [facility] Calcium 9.3 8.5 - 10.5 mg/dL 10/13/2023 4:55 AM EDT [facility] Est Glomerular Filtration Rate - Female 58 mL/min/1. 73 m?? 10/13/2023 4:55 AM EDT [facility] Comment: This patient's estimated GFR [...] AM EDT More Orozco MD CHEMISTRY ORDERABLES [facility] [place] [address] * (ABNORMAL) CBC (with Diff) (10/13/2023 4:07 AM EDT) White Blood Cell 6.31 4.00 - 9.50 x10(3)/mc L 10/13/2023 4:30 AM EDT [facility] Red Blood Cell 3.68(L) 4.00 - 5.21 x10(6)/mc L 10/13/2023 4:30 AM EDT [facility] Hemoglobin 11.8 11.7 - 15.5 g/dL 10/13/2023 4:30 AM EDT [facility] Hematocrit 34.6(L) 35.7 - 45.8 % 10/13/2023 4:30 AM [facility] Mean Cell Volume 94.0 82.6 - 94.4 fL 10/13/2023 4:30 AM [facility] Mean Cell Hemoglobin 32.1(H) 27.1 - 32.0 pg 10/13/2023 4:30 AM [facility] Mean Cell Hemoglobin Concentration 34.1 [...] 0.90 x10(3)/mc L 10/13/2023 4:30 AM EDT [facility] Eos % 1.6 % 10/13/2023 4:30 AM EDT [facility] Eos Absolute 0.10 0.00 - 0.40 x10(3)/mc L 10/13/2023 4:30 AM EDT [facility] Basophil % 0.5 % 10/13/2023 4:30 AM EDT [facility] Baso Absolute 0.03 0.00 - 0.10 x10(3)/mc L 10/13/2023 4:30 AM EDT [facility] Immature Gran % 0.2 % 4:30 AM EDT [facility] Immature Gran Absolute 0.01 0.00 - 0.04 x10(3)/mc L 10/13/2023 4:30 AM EDT [facility] Blood VENOUS BLOOD SPECIMEN / Unknown IP Care Team Draw / Unknown 10/13/2023 4:07 AM EDT 10/13/2023 4:23 AM EDT More Orozco MD HEMATOLOGY ORDERABLE S [facility] [place] [address] * Magnesium (10/12/2023 5:09 AM EDT) Magnesium 0.78 0.69 - 1.07 mMol/L 10/12/2023 5:46 AM EDT [facility] Blood VENOUS BLOOD SPECIMEN / Unknown IP Care Team Draw / Unknown 10/12/2023 5:09 AM EDT 10/12/2023 5:17 AM EDT More Orozco MD CHEMISTRY ORDERABLES [facility] [place] [address] * (ABNORMAL) Basic Metabolic Panel (10/12/2023 5:09 AM [facility]) Glucose 104 65 - 199 mg/dL 10/12/2023 6:08 AM [facility] Comment:Glucose Concentratio n >=200 mg/dL plus symptoms is consistent with Diabetes Mellitus. Blood Urea Nitrogen 12 8 - 18 mg/dL 10/12/2023 6:08 AM [facility] Creatinine 0.91 0.70 - 1.20 mg/dL 10/12/2023 6:08 AM [facility] Sodium 143 135 - 145 mMol/L 10/12/2023 6:08 AM [facility] Potassium 3.0(LLL) 3.5 - 5.0 mMol/L 10/12/2023 6:08 AM [facility] Chloride 109(H) 98 - 107 mMol/L 10/12/2023 6:08 AM [facility] Carbon Dioxide 23 22 - 31 mMol/L 10/12/2023 6:08 AM [facility] Anion Gap 11 5 - 15 mMol/L 10/12/2023 6:08 AM [facility] Calcium 9.1 8.5 - 10.5 mg/dL 10/12/2023 6:08 AM [facility] Est Glomerular Filtration Rate - Female 61 mL/min/1. 73 m?? 10/12/2023 6:08 AM [facility] Comment: This [...] AM EDT More Orozco MD CHEMISTRY ORDERABLES [facility] [place] [address] * (ABNORMAL) CBC (with Diff) (10/12/2023 5:09 AM EDT) White Blood Cell 5.10 4.00 - 9.50 x10(3)/mc L 10/12/2023 5:21 AM EDT [facility] Red Blood Cell 3.51(L) 4.00 - 5.21 x10(6)/mc L 10/12/2023 5:21 AM EDT [facility] Hemoglobin 11.3(L) 11.7 - 15.5 g/dL 10/12/2023 5:21 AM EDT [facility] Hematocrit 33.2(L) 35.7 - 45.8 % 10/12/2023 5:21 AM EDT [facility] Mean Cell Volume 94.6(H) 82.6 - 94.4 fL 10/12/2023 5:21 AM EDT [facility] Mean Cell Hemoglobin 32.2(H) 27.1 - 32.0 pg 10/12/2023 5:21 AM EDT [facility] Mean Cell Hemoglobin Concentration 34.0 31.7 - 35.0 g/dL 10/12/2023 5:21 AM EDT [facility] Platelet 229 145 - 357 x10(3)/mc L 10/12/2023 5:21 AM EDT [facility] Mean Platelet Volume 10.2 7.6 - 12.9 fL 10/12/2023 5:21 AM EDT [facility] RDW Standard Deviation 43.5 37.0 - 46.0 fL 10/12/2023 5:21 AM EDT [facility] RDW coefficient of variation 12.7 11.5 - 14.1 % 10/12/2023 5:21 AM [facility] NRBC% auto 0.0 % 10/12/2023 5:21 AM [facility] NRBC Absolute 0.00 0.00 - 0.00 x10(3)/mc L 10/12/2023 5:21 AM [facility] Neutrophil % 54.2 % 10/12/2023 5:21 AM [facility] Neutrophil Absolute (ANC) - Automated 2.77 1.70 - 6.10 x10(3)/mc L 10/12/2023 5:21 AM [facility] Lymph % 35.9 % 10/12/2023 5:21 AM [facility] Lymph Absolute 1.83 0.90 - 3.20 x10(3)/mc L 10/12/2023 5:21 AM [facility] Monocyte % 7.3 % 10/12/2023 5:21 AM [facility] Monocyte Absolute 0.37 0.30 - 0.90 x10(3)/mc L 10/12/2023 5:21 AM [facility] Eos % 1.8 % 10/12/2023 5:21 AM [facility] Eos Absolute 0.09 0.00 - 0.40 x10(3)/mc L 10/12/2023 5:21 AM [facility] Basophil % 0.6 % 10/12/2023 5:21 AM [facility] Baso Absolute 0.03 0.00 - 0.10 x10(3)/mc L 10/12/2023 5:21 AM [facility] Immature Gran % 0.2 % 5:21 AM [facility] Immature Gran Absolute 0.01 0.00 - 0.04 x10(3)/mc L 10/12/2023 5:21 AM [facility] Blood VENOUS BLOOD SPECIMEN / Unknown IP Care Team Draw / Unknown 10/12/2023 5:09 AM EDT 10/12/2023 5:17 AM EDT More Orozco MD HEMATOLOGY ORDERABLE S Performing Organization Address City/[facility]/ZIP Co de Phone Number [facility] [place] [address] * (ABNORMAL) Hepatic Function Panel (10/12/2023 5:09 AM EDT) Albumin 3.9 3.2 - 5.2 g/dL 10/12/2023 5:46 AM EDT [facility] Aspartate Aminotransferase 15 <=30 unit/L 10/12/2023 5:46 AM EDT [facility] Alanine Aminotransferase 14 0 - 30 unit/L 10/12/2023 5:46 AM EDT [facility] Alkaline Phosphatase 46 35 - 105 unit/L 10/12/2023 5:46 AM EDT [facility] Bilirubin, Total 1.4(H) <=1.3 mg/dL 10/12/2023 5:46 AM EDT [facility] Bilirubin, Direct 0.2 0.0 - 0.3 mg/dL 10/12/2023 5:46 AM EDT [facility] Protein, Total 6.3 6.1 - 8.0 g/dL 10/12/2023 5:46 AM EDT [facility] Blood VENOUS BLOOD SPECIMEN / Unknown IP Care Team Draw / Unknown 10/12/2023 5:09 AM EDT 10/12/2023 5:17 AM EDT More Orozco MD CHEMISTRY ORDERABLES [facility] [place] [address] * Phosphorus (10/12/2023 5:09 AM EDT) Phosphorus 3.4 2.5 - 4.5 mg/dL 10/12/2023 5:46 AM EDT [facility] Blood VENOUS BLOOD SPECIMEN / Unknown IP Care Team Draw / Unknown 10/12/2023 5:09 AM EDT 10/12/2023 5:17 AM EDT More Orozco MD CHEMISTRY ORDERABLES Performing Organization Address City/[facility]/ZIP Co de Phone Number [facility] [place] [address] * TSH (10/11/2023 6:17 PM EDT) Thyroid Stimulating Hormone 1.63 0.27 - 4.20 mcIU/mL 10/12/2023 1:15 AM EDT [facility] Comment: Reference Interval (mcIU/mL): ?? Females: ? First Trimester: 0.23-3.88 ? Second Trimester: 0.22-3.90 ? Third Trimester: 0.44-4.66 Blood VENOUS BLOOD SPECIMEN / Unknown IP Care Team Draw / Unknown 10/11/2023 6:17 PM EDT 10/11/2023 6:23 PM EDT More Orozco MD CHEMISTRY ORDERABLES Performing Organization Address City/[facility] [[email or web address]] Co de Phone Number [facility] [place] [address] * Lipase (10/11/2023 6:17 PM EDT) Lipase 29 0 - 60 unit/L 10/12/2023 1:15 AM EDT [facility] Blood VENOUS BLOOD SPECIMEN / Unknown IP Care Team Draw / Unknown 10/11/2023 6:17 PM EDT 10/11/2023 6:23 PM EDT More Orozco MD CHEMISTRY ORDERABLES Performing Organization Address City/[facility]/ZIP Co de Phone Number [facility] [place] [address] * (ABNORMAL) Troponin-T, Joseph Sensitivity 3 Hour (10/11/2023 6:17 PM EDT) Pathologist [facility] Troponin-T, High Sensitivity 15(H) <=14 ng/L 10/11/2023 6:52 PM EDT [facility] Comment: This patient's troponin T [...] troponin value can be found in the [facility] Test Catalog Troponin - [email or web address].org/catalogs/565/files/70558 Reference: Fourth [place] Definition of Myocardial Infarction. Journal of the [place] [employer] 2018;72:6520-8679 Troponin-T, HS 3 hr delta 2 ng/L 10/11/2023 6:52 PM EDT [facility] Comment:The 3 hour Troponin T delta value is the absolute difference between the Troponin T concentrations of the initial and subsequent sample collected between 2 h: 45 min and 6 h following the initial collection Blood VENOUS BLOOD SPECIMEN / Unknown IP Care Team Draw / Unknown 10/11/2023 6:17 PM EDT 10/11/2023 6:23 PM EDT Karla Faria MD CHEMISTRY ORDERABLES [facility] [place] [address] * (ABNORMAL) Troponin-T, High Sensitivity 1 Hour (10/11/2023 3:59 PM EDT) Pathologist [facility] Troponin-T, High Sensitivity 16(H) <=14 ng/L 10/11/2023 4:32 PM EDT [facility] Comment: This patient's troponin T [...] troponin value can be found in the [facility] Test Catalog Troponin - [email or web address].org/catalogs/565/files/28479 Reference: Fourth [place] Definition of Myocardial Infarction. Journal of the [place] [employer] 2018;72:0625-4437 Troponin-T, HS 1 hr delta 1 ng/L 10/11/2023 4:32 PM EDT [facility] Comment:The 1 hour Troponin T delta value is the absolute difference between the Troponin T concentrations of the initial and subsequent sample collected between 45 - 120 minutes following the initial collection. Blood VENOUS BLOOD SPECIMEN / Unknown Venipuncture / Unknown 10/11/2023 3:59 PM EDT 10/11/2023 4:05 PM EDT Karla Faria MD CHEMISTRY ORDERABLES [facility] [place] [address] * CT Angiogram Chest Abdomen Pelvis w Contrast (10/11/2023 3:44 PM EDT) WORKSTATION ID [id number] RAD Anatomical Region Laterality Modality Abdomen, Chest [...] who have questions please contact the health resident care associate that requested your imaging first. ? Narrative [...] and of normal caliber. No dissection. Scattered [id number] atheromatous plaque is noted. Celiac: Patent. No [...] and of normal caliber. No dissection. Scattered [id number] atheromatous plaque is noted. Celiac: Patent. No [...] patients who have questions please contactthe health resident care associate that requested your imaging first. Karla Faria MD IMG CT ORDERABLES * (ABNORMAL) Hemoglobin A1c (10/11/2023 3:01 PM EDT) Hemoglobin A1c 6.1(H) 4.3 - 5.6 % 10/12/2023 1:06 AM EDT [facility] Comment: Per ADA guidelines, without [...] red blood cell turnover may not be clearance representative of glycemic control. Reference Interval: 4.3 - 5.6% 5.7 - 6.4%: Consistent with prediabetes >=6.5%: Consistent with diagnosis of diabetes mellitus Estimated Average Glucose 10/12/2023 1:06 AM T [facility] Comment:Not Calculated. Blood VENOUS BLOOD SPECIMEN / Unknown Venipuncture / Unknown 10/11/2023 3:01 PM EDT 10/11/2023 3:09 PM EDT Narrative [facility] - 10/12/2023 1:06 AM EDT Estimated average glucose (eAG) is calculated from the equation described in: Malvin DM, Jamal J, Janina R, et al. ??Translating the A1C assay into estimated average glucose values. ??Diabetes Care 2008:31(8):2720-4962. Additional resources are available on the ADA website (diabetes.org). More Orozco MD CHEMISTRY ORDERABLES [facility] [place] [address] * (ABNORMAL) Troponin-T, High Sensitivity (10/11/2023 3:01 PM EDT) [facility] Troponin-T, High Sensitivity Initial 17(H) <=14 ng/L 10/11/2023 3:53 PM EDT [facility] Comment: This patient's troponin T [...] troponin value can be found in the [facility] Test Catalog Troponin - [email or web address].org/catalogs/565/files/32812 Reference: Fourth [place] Definition of Myocardial Infarction. Journal of the [place] [employer] 2018;72:0920-0124 Blood VENOUS BLOOD SPECIMEN / Unknown Venipuncture / Unknown 10/11/2023 3:01 PM EDT 10/11/2023 3:09 PM EDT Karla Faria MD CHEMISTRY ORDERABLES [facility] [place] [address] * Lipase (10/11/2023 3:01 PM EDT) Lipase 35 0 - 60 unit/L 10/11/2023 3:53 PM EDT [facility] Blood VENOUS BLOOD SPECIMEN / Unknown Venipuncture / Unknown 10/11/2023 3:01 PM EDT 10/11/2023 3:09 PM EDT Karla Faria MD CHEMISTRY ORDERABLES Performing Organization Address City/[facility]/ZIP Co de Phone Number [facility] [place] [address] * Hepatic Function Panel (10/11/2023 3:01 PM EDT) Albumin 4.2 3.2 - 5.2 g/dL 10/11/2023 3:53 PM EDT [facility] Aspartate Aminotransferase 16 <=30 unit/L 10/11/2023 3:53 PM EDT [facility] Alanine Aminotransferase 16 0 - 30 unit/L 10/11/2023 3:53 PM EDT [facility] Alkaline Phosphatase 51 35 - 105 unit/L 10/11/2023 3:53 PM EDT [facility] Bilirubin, Total 1.1 <=1.3 mg/dL 10/11/2023 3:53 PM EDT [facility] Bilirubin, Direct 0.2 0.0 - 0.3 mg/dL 10/11/2023 3:53 PM EDT [facility] Protein, Total 7.1 6.1 - 8.0 g/dL 10/11/2023 3:53 PM EDT [facility] Blood VENOUS BLOOD SPECIMEN / Unknown Venipuncture / Unknown 10/11/2023 3:01 PM EDT 10/11/2023 3:09 PM EDT Karla Faria MD CHEMISTRY ORDERABLES [facility] [place] [address] * (ABNORMAL) Basic Metabolic Panel (10/11/2023 3:01 PM EDT) Glucose 105 65 - 199 mg/dL 10/11/2023 3:53 PM EDT [facility] Comment:Glucose Concentratio n >=200 mg/dL plus symptoms is consistent with Diabetes Mellitus. Blood Urea Nitrogen 14 8 - 18 mg/dL 10/11/2023 3:53 PM EDT [facility] Creatinine 0.91 0.70 - 1.20 mg/dL 10/11/2023 3:53 PM EDT [facility] Sodium 144 135 - 145 mMol/L 10/11/2023 3:53 PM EDT [facility] Potassium 3.1(L) 3.5 - 5.0 mMol/L 10/11/2023 3:53 PM EDT [facility] Chloride 107 98 - 107 mMol/L 10/11/2023 3:53 PM EDT [facility] Carbon Dioxide 23 22 - 31 mMol/L 10/11/2023 3:53 PM EDT [facility] Anion Gap 14 5 - 15 mMol/L 10/11/2023 3:53 PM EDT [facility] Calcium 9.9 8.5 - 10.5 mg/dL 10/11/2023 3:53 PM EDT [facility] Est Glomerular Filtration Rate - Female 61 mL/min/1. 73 m?? 10/11/2023 3:53 PM EDT [facility] Comment: This patient's estimated GFR [...] Faria MD CHEMISTRY ORDERABLES Performing Organization Address City/State/[facility] [[email or web address]] Co de Phone Number [facility] [place] [address] * (ABNORMAL) CBC (with Diff) (10/11/2023 3:01 PM EDT) White Blood Cell 6.04 4.00 - 9.50 x10(3)/mc L 10/11/2023 3:28 PM EDT [facility] Red Blood Cell 3.72(L) 4.00 - 5.21 x10(6)/mc L 10/11/2023 3:28 PM EDT [facility] Hemoglobin 12.0 11.7 - 15.5 g/dL 10/11/2023 3:28 PM EDT [facility] Hematocrit 34.5(L) 35.7 - 45.8 % 10/11/2023 3:28 PM EDT [facility] Mean Cell Volume 92.7 82.6 - 94.4 fL 10/11/2023 3:28 PM EDT [facility] Mean Cell Hemoglobin 32.3(H) 27.1 - 32.0 pg 10/11/2023 3:28 PM [facility] Mean Cell Hemoglobin Concentration 34.8 31.7 - 35.0 g/dL 10/11/2023 3:28 PM [facility] Platelet 246 145 - 357 x10(3)/mc L 10/11/2023 3:28 PM [facility] Mean Platelet Volume 10.3 7.6 - 12.9 fL 10/11/2023 3:28 PM [facility] RDW Standard Deviation 43.2 37.0 - 46.0 fL 10/11/2023 3:28 PM [facility] RDW coefficient of variation 12.6 11.5 - 14.1 % 10/11/2023 3:28 PM [facility] NRBC% auto 0.0 % 10/11/2023 3:28 PM [facility] NRBC Absolute 0.00 0.00 - 0.00 x10(3)/mc L 10/11/2023 3:28 PM [facility] Neutrophil % 67.7 % 10/11/2023 3:28 PM [facility] Neutrophil Absolute (ANC) - Automated 4.09 1.70 - 6.10 x10(3)/mc L 10/11/2023 3:28 PM [facility] Lymph % 25.5 % 10/11/2023 3:28 PM [facility] Lymph Absolute 1.54 0.90 - 3.20 x10(3)/mc L 10/11/2023 3:28 PM [facility] Monocyte % 5.6 % 10/11/2023 3:28 PM [facility] Monocyte Absolute 0.34 0.30 - 0.90 x10(3)/mc L 10/11/2023 3:28 PM [facility] Eos % 0.5 % 10/11/2023 3:28 PM [facility] Eos Absolute 0.03 0.00 - 0.40 x10(3)/mc L 10/11/2023 3:28 PM EDT [facility] Basophil % 0.5 % 10/11/2023 3:28 PM EDT [facility] Baso Absolute 0.03 0.00 - 0.10 x10(3)/mc L 10/11/2023 3:28 PM EDT [facility] Immature Gran % 0.2 % 3:28 PM EDT [facility] Immature Gran Absolute 0.01 0.00 - 0.04 x10(3)/mc L 10/11/2023 3:28 PM EDT [facility] Blood VENOUS BLOOD SPECIMEN / Unknown Venipuncture / Unknown 10/11/2023 3:01 PM EDT 10/11/2023 3:09 PM EDT Karla Faria MD HEMATOLOGY ORDERABLE S [facility] [place] [address] * (ABNORMAL) Urinalysis Microscopic Reflex to Culture (10/11/2023 2:54 PM EDT) Bacteria, Urine None None /HPF 3:52 PM EDT [facility] RBC, Urine 5(H) 0 - 4 /HPF 10/11/2023 3:52 PM EDT [facility] WBC, Urine 0 0 - 5 /HPF 10/11/2023 3:52 PM EDT [facility] Squamous Epithelial Cells, Urine 1 <5 /HPF 10/11/2023 3:52 PM EDT [facility] Hyaline Casts, Urine 0 0 - 2 /LPF 10/11/2023 3:52 PM EDT [facility] Comment 10/11/2023 3:52 PM EDT [facility] Comment:Interpret results wi th caution, microscopic results are from a suboptimal specimen. Urine URINE SPECIMEN OBTAINED BY CLEAN CATCH PROCEDURE / Unknown Non Blood Collection / Unknown 10/11/2023 2:54 PM EDT 10/11/2023 3:09 PM EDT Karla Faria MD URINE ORDERABLES [facility] [place] [address] * Urinalysis Microscopic with Reflex to Culture (10/11/2023 2:54 PM EDT) Urine URINE SPECIMEN OBTAINED BY CLEAN CATCH PROCEDURE / Unknown Non Blood Collection / Unknown 10/11/2023 2:54 PM EDT 10/11/2023 3:09 PM EDT Karla Faria MD URINE ORDERABLES Performing Organization Address City/[facility]/ZIP Co de Phone Number [facility] [place] [address] * (ABNORMAL) Urinalysis with reflex Culture (10/11/2023 2:54 PM EDT) Glucose, Urine Dipstick Negative Negative 10/11/2023 3:52 PM EDT [facility] Protein, Urine Dipstick Negative Negative 10/11/2023 3:52 PM EDT [facility] Bilirubin, Urine Dipstick Negative Negative 10/11/2023 3:52 PM EDT [facility] Comment:Clinical correlation required for positive Urine Bilirubin results as false positive may occur with some drugs and drug related products. If a false positive is suspected a serum total bilirubin should be considered if clinically indicated. Urobilinogen, Urine Dipstick Normal Normal, 0.2 mg/dL, 1.0 mg/dL 10/11/2023 3:52 PM EDT [facility] pH, Urine (dipstick) 7.0 5.0 - 8.0 10/11/2023 3:52 PM EDT [facility] Blood, Urine Dipstick Moderate(A) Negative 10/11/2023 3:52 PM EDT [facility] Ketone, Urine Dipstick Negative Negative 10/11/2023 3:52 PM EDT [facility] Nitrite, Urine Dipstick Negative Negative 10/11/2023 3:52 PM EDT [facility] Leukocytes, Urine Dipstick Negative Negative 10/11/2023 3:52 PM EDT [facility] [place] Urine Automated 1.007 1.005 - 1.030 10/11/2023 3:52 PM EDT [facility] Appearance, Urine Dipstick Clear Clear 10/11/2023 3:52 PM EDT [facility] Color, Urine Dipstick Yellow Yellow, Dark Yellow 10/11/2023 3:52 PM EDT [facility] Urine URINE SPECIMEN OBTAINED BY CLEAN CATCH PROCEDURE / Unknown Non Blood Collection / Unknown 10/11/2023 2:54 PM EDT 10/11/2023 3:09 PM EDT Karla Faria MD URINE ORDERABLES Performing Organization Address City/[facility] [[email or web address]] Co de Phone Number [facility] [place] [address] * EKG 12 Lead (10/11/2023 2:49 PM EDT) Ventricular rate 53 BPM MUSE SYSTEM Atrial Rate 53 BPM MUSE SYSTEM P-R Interval 176 ms MUSE SYSTEM QRS Duration 70 ms MUSE SYSTEM Q-T Interval 428 ms MUSE SYSTEM QTC Calculated (Bezet) 401 ms MUSE SYSTEM Calculated P [place] 65 degrees MUSE SYSTEM Calculated R [place] 6 degrees MUSE SYSTEM Calculated T [place] 51 degrees MUSE SYSTEM INTERPRETATION Sinus bradycardia Low voltage QRS Cannot rule out Anteroseptal infarct (cited on or before 21-JUN-2010) Abnormal ECG When compared with ECG of 21-JUN-2010 10:35, Questionable change in initial forces of Anteroseptal leads Confirmed by MD CELIS ARMIN ([id number]) on 10/11/2023 3:30:54 PM MUSE SYSTEM 10/11/2023 2:49 PM EDT 10/11/2023 3:30 PM EDT Karla Faria MD ECG ORDERABLES [place] [facility] documented in this encounter Visit Diagnoses [...] ONCE, 1 dose, On Fri10/12/23 at 0040 Given 10/12/2023 2:01 AM EDT [...] 2 HOURS, 3 doses, First dose on Fri10/12/23 at 0645, Last dose on Fri10/12/23 at 1045, Administer over 60 Minutes, Doses [...] - Reason: Transfer to a Procedural area)0957 ([facility] Hold - Provider: Admin Adt - Reason: Transfer to a Procedural area)1132 ([facility] Unhold - Provider: Admin Adt) diphenhydrAMINE/aluminum- magnesium [...] Elza Wagner RN - Reason: Patient/family refused)0957 ([facility] Hold - Provider: Admin Adt - Reason: Transfer to a Procedural area)1132 ([facility] Unhold - Provider: Admin Adt) losartan (Cozaar) tablet 100 mg 100 mg, Oral, DAILY, First dose on 10/12/23 at 0900, Until Discontinued, Routine 0917 (Given - Provider: Jennifer Zhou RN) 0957 ([facility] Hold - Provider: Admin Adt - Reason: Transfer to a Procedural area)1132 ([facility] Unhold - Provider: Admin Adt)1451 [...] RN) 0917 (Given - Provider: Jennifer Zhou, LINDEN)2026 (Given - Provider: Patricia Jj RN) 0957 ([facility] Hold - Provider: Admin Adt - Reason: Transfer to a Procedural area)1132 ([facility] Unhold - Provider: Admin Adt)1452 (Given - Provider: Erendira Barnhart, LINDEN) potassium chloride 10 mEq in sterile water [...] Stout RN)1118 (New Bag - Provider: Skye Stout RN)1222 (Stopped - Provider: Skye Stout RN) rivaroxaban (Xarelto) tablet 10 mg 10 mg, Oral, DAILY, First dose (after last modification) on 10/12/23 at 0900, Until Discontinued, Routine, rivaroxaban (Xarelto) Indication: DVT or PE, Chronic/Long-term (Secondary Prevention) 0917 (Given - Provider: Jennifer Zhou RN) 0957 ([facility] Hold - Provider: Admin Adt - Reason: Transfer to a Procedural area)1132 ([facility] Unhold - Provider: Admin Adt)1451 (Given - Provider: Erendira Barnhart RN) sodium chloride 0.9 % (flush) (BD PosiFlush Normal Saline 0.9) flush 5 mL 5 mL, Intravenous, 2 TIMES DAILY, First dose on 10/11/23 at 2345, Until Discontinued, Routine 2352 (Given - Provider: Perlita Milian RN) 0917 (Given - Provider: Jennifer Zhou RN)2025 (Given - Provider: Patricia Jj RN) 0957 ([facility] Hold - Provider: Admin Adt - Reason: Transfer to a Procedural area)1132 ([facility] Unhold - Provider: Admin Adt)1452 (Given - Provider: Erendira Barnhart RN) Continuous Medication Order 10/11/2023 10/12/2023 10/13/2023 sodium chloride 0.9% with potassium chloride 20 mEq infusion () 100 mL/hr, Intravenous, CONTINUOUS, Starting on 10/11/23 at 2335, Until 10/12/23 at 1434 2343 (New Bag - Provider: Perlita Milian, RN) 0902 (New Bag - Provider: Jennifer Zhou, RN)1944 (Stopped - Provider: Patricia Jj RN) [...] area)1132 ([facility] Unhold - Provider: Admin Adt) ondansetron (pf) [...] if ineffective use prochlorperazine second line. 0957 ([facility] Hold - Provider: Admin Adt - Reason: Transfer to a Procedural area)1132 ([facility] Unhold - Provider: Admin Adt) prochlorperazine (Compazine) (5 mg/mL) injection 10 mg(Linked Group 1) 10 mg, Intravenous, EVERY 6 HOURS PRN, Starting on 10/12/23 at 0450, Until 10/13/23 at 1957, Nausea, Vomiting, Use ondansetron first line and if ineffective use prochlorperazine second line., Routine 0957 ([facility] Hold - Provider: Admin Adt - Reason: Transfer to a Procedural area)1132 ([facility] Unhold - Provider: Admin Adt) prochlorperazine (Compazine) tablet 10 mg(Linked Group 1) 10 mg, Oral, EVERY 6 HOURS PRN, Starting on 10/12/23 at 0450, Until 10/13/23 at 1957, Nausea, Use ondansetron first line and if ineffective use prochlorperazine second line. Maximum dose: 50 mg / 24 hrs, Routine 0957 ([facility] Hold - Provider: Admin Adt - Reason: Transfer to a Procedural area)1132 ([facility] Unhold - Provider: Admin Adt) [...] Routine documented in this encounter Care Teams [employer] Relationship Specialty Start Date End Date Kumar Schultz MD [address] [place] [address] PCP - General Family Medicine 03/19/19 documented as of this encounter
--- OUTSIDE RECORDS SUMMARY | 2023-12-12 09:43 | XMS_ITS | Encounter Summary ---
Author Organization [facility] [place] [address] Care Team Providers Care Visitor Services Assistant Name Role Phone Austin, Etsee Andino APRN Primary Care Provider [phone] Reason for Visit * Reason Comments Preoperative Cardiovascular Encounter Details Date Type Department Care Team (Late st Contact Info) Description 01/14/2011 3:30 PM EST Office Visit Cardiology at [address] [phone] George Jalloh MD [facility] [place] [address] Palpitations (Primary Dx) Discharge Disposition: Home Social [...] MONITOR NOTE Seen for instruction using a MeMedo 7 day cardiac transient arrythmia monitor, ordered [...] HPI PULM: no cough,wheeze GI: no N,V,D,hematochezia,melena ADMISSION NURSE COORDINATOR: no syncope,focal weakness,paresthesias PMH: HTN Hyperlipidemia Pulmonary [...] to have A-fib she may benefit from ocean transportation intermediary anticoagulation. At this time there is no [...] documented as of this encounter Results * AVELOPATCH (01/14/2011 4:33 PM EST) Anatomical Region Laterality [...] Palpitations documented in this encounter Care Teams Visitor Services Assistant Relationship Specialty Start Date End Date Estee Novak APRN PCP - General 01/09/10 10/12/14 documented as of this encounter
--- OUTSIDE RECORDS SUMMARY | 2023-12-12 09:43 | XMS_ITS | Encounter Summary ---
Author Organization [facility] [place] [address] Care Team Providers Care Grinder Name Role Phone [place], Estee Andino APRN Primary Care Provider [phone] Reason for Visit * Reason Comments Skin Check Encounter Details Date Type Department Care Team (Late st Contact Info) Description 02/01/2014 8:00 AM EST Office Visit Dermatology at [facility] [address] [place] [address] Noble Moseley MD [address] [facility] [place] [address] History of SCC (squamous cell carcinoma) of [...] from the original note were not included. [facility] Actinic Keratosis: After Your Visit Your [...] more? Visit our health information library at [email or web address] You can also view health information on Tribesports, your personal patient account. Log in or sign up today. Enter L364 in the search box to learn more about Actinic Keratosis: After Your Visit. ?? [id number] [employer], [email or web address]. Care instructions adapted under license by [facility]. This care instruction is for use with your licensed healthcare professional. If you have questions about a medical condition or this instruction, always ask your healthcare professional. TheWrap disclaims any warranty or liability for your use of this information. Content Version: 9.9.442146; Last Revised: March 31, 2012 documented in [...] dyschromia documented in this encounter Care Teams Grinder Relationship Specialty Start Date End Date Estee Novak APRN PCP - General 01/09/10 10/12/14 documented as of this encounter
--- OUTSIDE RECORDS SUMMARY | 2023-12-12 09:43 | XMS_ITS | Encounter Summary ---
Author Organization [facility] [place] [address] Care Team Providers Care Can Washer Name Role Phone Estee Stinson APRN Primary Care Provider [phone] Reason for Visit * Reason Comments Follow-up Encounter Details Date Type Department Care Team (Late st Contact Info) Description 04/05/2011 11:30 AM EST Follow-Up [place] [phone] Audra Fields MD [facility] [address] [place] [address] Pulmonary embolism (Primary Dx) Discharge Disposition: Home [...] Fields MD - 04/05/2011 12:[address] [facility] Department of Medicine [place] [address] [facility] THROMBOSIS FOLLOW UP [...] advil without relief and presented to the [facility] ER as the pain worsened. The pain was described as sharp and stabbing, like a knife, and was not associated with respiratory symptoms including shortness of breath and no cold or flu-like symptoms. A CTPA at [facility] showed a segmental PE involving the right lower lobe and she was transferred to [facility] for further treatment and evaluation. Shewas initially [...] stopping warfarin. 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 Since I saw her last she has done well. 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 Audra Fiedls MD Dental Hygiene Teacher, [facility] documented in this encounter Plan of Treatment Not on file documented as of this encounter Visit Diagnoses Diagnosis Pulmonary embolism- Primary Other pulmonary embolism and infarction documented in this encounter Care Teams Can Washer Relationship Specialty Start Date End Date Estee Stinson APRN PCP - General 01/09/10 10/12/14 documented as of this encounter
--- OUTSIDE RECORDS SUMMARY | 2023-12-12 09:43 | XMS_ITS | Encounter Summary ---
Author Organization [facility] Address [address] [facility] [place] [address] Care Team Providers Care Cardboard Inserter Name Role Phone Candie Skaggs MD Primary Care Provider [phone] Encounter Details Date Type Department Care Team (Latest Contact Info) Description 04/04/2022 4:13 PM EST - 04/04/2022 11:59 PM EST Hospital Encounter XRay at [address] [place] [phone] Lino Duke MD Right hand pain Discharge [...] who have questions please contact the health medicare sales representative that requested your imaging first. ? Electronically signed by: Yolanda Tripp MD, [facility] ([phone]), at 04/05/2022 10:55 AM Narrative 04/05/2022 10:55 [...] patients who have questions please contactthe health medicare sales representative that requested your imaging first. Electronically signed by: Yolanda Tripp MD, [facility]([phone]), at 04/05/2022 10:55 AM Lino Duke MD IMG DX ORDERABLES documented in this encounter Visit Diagnoses Diagnosis Right hand pain Pain in limb documented in this encounter Care Teams Cardboard Inserter Relationship Specialty Start Date End Date Candie Skaggs MD [address] [place] [address] PCP - General Family Medicine 03/19/19 documented as of this encounter
--- OUTSIDE RECORDS SUMMARY | 2023-12-12 09:43 | XMS_ITS | Encounter Summary ---
Author Organization [facility] [place] [address] Care Team Providers Care Glass Fitter Name Role Phone Candie Skaggs MD Primary Care Provider [phone] Reason for Referral * Consultation (Routine) - Closed Specialty Diagnoses / Procedures Referred By Contac t Referred To Contact Pain and Spine Center Diagnoses Bilateral hip pain Radiculopathy of lumbar region Lower extremity pain, left Lower extremity pain, right spine- BLE pain/ XR h/p 04/04/22 in Rukhsana Berry PA [facility] DR [place] [address] [facility] [place] [address] Referral ID Status Reason Start Date Expiration Date V isits Requested Visits Authorized [id number] Closed Consult, Test & Treat 04/04/2022 04/04/2023 1 1 Reason for Visit * Reason Comments Establish Care BILATERAL HIP PAIN? * Consultation (Routine) - Closed Specialty Diagnoses / Procedures Referred By Contac t Referred To Contact Orthopaedics Diagnoses Bilateral hip pain Self mail [facility] [address] [place] [address] Referral ID Status Reason Start Date Expiration Date V isits Requested Visits Authorized [id number] Closed Consult, Test & Treat 03/07/2022 03/07/2023 1 1 Encounter Details Date Type Department Care Team (Late st Contact Info) Description 04/04/2022 4:00 PM EST Office [place] [address] Rukhsana Mills PA [facility] [place] [address] Bilateral hip pain (Primary Dx); Right hand [...] NAME: Abby Ruffin AGE: 86 y.o. MR#: [id number] DATE OF VISIT: 04/04/2022 CHIEF COMPLAINT: whole [...] pain. Right hand dominant. No problem with dramatic agent strength. Has shooting sensation right hand and [...] who have questions please contact the health infant caregiver that requested your imaging first. ? [...] patients who have questions please contactthe health infant caregiver that requested your imaging first. Lino Duke [...] who have questions please contact the health infant caregiver that requested your imaging first. ? [...] patients who have questions please contactthe health infant caregiver that requested your imaging first. Lino Duke [...] limb documented in this encounter Care Teams Glass Fitter Relationship Specialty Start Date End Date Candie Skaggs MD [address] [address] PCP - General Family Medicine 03/19/19 documented as of this encounter
--- OUTSIDE RECORDS SUMMARY | 2023-12-12 09:43 | XMS_ITS | Encounter Summary ---
Author Organization [facility] [place] [address] Care Team Providers Care Vehicle Cost Engineer Name Role Phone Stefan Arteaga MD Primary Care Provider [phone] Reason for Visit * Reason Comments Travel Consult Encounter Details Date Type Department Care Team (Late st Contact Info) Description 10/14/2014 2:30 PM EDT Office [place] [phone] Charisma Zhang, RN [facility] [place] [address] Other specified counseling Discharge Disposition: Home Social [...] Have a great trip! Travel Safely, [email or web address] [phone] documented in this encounter Progress Notes * [...] (list from first to last): [facility] Departure date: nov 17 Length of trip: 3weeks, ?tomy varanasi Purpose of travel: retreat Type of environment: small town Accommodations: [facility] guest house Medical History: Medical problems: [...] counseling documented in this encounter Care Teams Vehicle Cost Engineer Relationship Specialty Start Date End Date Stefan Arteaga MD PCP - General 10/13/14 03/18/19 documented as of this encounter
--- OUTSIDE RECORDS SUMMARY | 2023-12-12 09:43 | XMS_ITS | Encounter Summary ---
Author Organization [facility] [place] [address] Care Team Providers Care Sail Repairer Name Role Phone Candie Skaggs MD Primary Care Provider [phone] Encounter Details Date Type Department Care Team [...] on filedocumented in this encounter Care Teams Sail Repairer Relationship Specialty Start Date End Date Candie Skaggs MD [address] [place] [address] PCP - General Family Medicine 03/19/19 documented as of this encounter
--- OUTSIDE RECORDS SUMMARY | 2023-12-12 09:43 | XMS_ITS | Encounter Summary ---
Author Organization [facility] [place] [address] Care Team Providers Care Entry Level Marketing Representative Name Role Phone Candie Skaggs MD Primary Care Provider [phone] Reason for Referral * Audiology Exam (Routine) - Closed Specialty Diagnoses / Procedures Referred By Contbrendan t Referred To Contact Audiology Diagnoses Hearing loss, unspecified hearing loss type, unspecified laterality Candie Skaggs MD [address] [place] [address] [facility] [address] [place] [id number] Referral ID Status Reason Start Date Expiration Date V isits Requested Visits Authorized [id number] Closed Specialty Service Requested PCP Updated and/or Approved 04/10/2022 04/10/2023 1 1 Encounter Details Date Type Department Care Team (Latest Contact Info) Description 04/10/2022 Transcribe Orders eDH Incoming Referrals [phone] Candie Skaggs MD [address] [place] [address] Hearing loss, unspecified hearing loss type, [...] laterality documented in this encounter Care Teams Entry Level Marketing Representative Relationship Specialty Start Date End Date Candie Skaggs MD [address] [place] [address] PCP - General Family Medicine 03/19/19 documented as of this encounter
--- OUTSIDE RECORDS SUMMARY | 2023-12-12 09:43 | XMS_ITS | Encounter Summary ---
Author Organization [place] [address] Care Team Providers Care Integrated Marketing Intern Name Role Phone Candie Skaggs MD Primary Care Provider [phone] Encounter Details Date Type Department Care Team [...] on filedocumented in this encounter Care Teams Integrated Marketing Intern Relationship Specialty Start Date End Date Candie Skaggs MD [address] [place] [address] PCP - General Family Medicine 03/19/19 documented as of this encounter
--- OUTSIDE RECORDS SUMMARY | 2023-12-12 09:43 | XMS_ITS | Encounter Summary ---
[place] [address] Care Team Providers Care Sourcing Specialist Name Role Phone BernalilloHayley vanceclint Andino APRN Primary Care Provider [phone] Encounter Details Date Type Department Care Team (Latest Contact Info) Description 06/21/2010 3:33 AM EDT - 06/21/2010 4:56 PM EDT Hospital Encounter Hematology [place] [phone] [place] [address] [place] [address] Pulmonary embolism; Other pulmonary embolism and infarction [...] given today) Your Inpatient Medical Team [place] [facility] Name(s) of your inpatient provider(s): Dr. Goyo Lawson For questions regarding issues relating to your hospitalization on the Medical Service, please contact your inpatient physician through the [facility] Food Service Assistant . Issues after hours and on weekends will be handled by the Hospitalist staff on-call. Your Primary Care Provider ESTEE STINSON APRN * Attachments The following attachments cannot be sent through Care Everywhere. * PULMONARY EMBOLISM: AFTER YOUR VISIT (HAITIAN) * TIPS TO PREVENT BLOOD CLOTS: AFTER YOUR VISIT (HAITIAN) * CONSISTENT VITAMIN K DIET: AFTER YOUR VISIT (HAITIAN) documented in this encounter Medications at Time [...] Lawson MD - 06/21/2010 1:44 PM EDT [facility] Hospital Medicine - Attending Day of Discharge [...] Encounter Date: 06/21/2010 Patient Name: Nelsy Ruffin MR#:[id number] S: I'm still having some pain... In my back (indicating posterior shoulder blade) especially when I take a deep breath. O: patient reviewed in multidisciplinary rounds; CRC has reviewed E-Dh notes; introduced self and CRC role to patient and spouse Geovanni ([phone]); patient and agree to CRC services; pt currently lives w/ in own home in [place], [place]. Reason for hospital admission: pulmonary embolism. Current functional status/mobility: independent. Baseline functional status/mobility: no functional deficits. Home environment: not assessed. PCP and date of last appt: listed as Dr. Monica Stinson, pt verifies that as accurate. Current home services/DME and vendor: none. Insurance coverage: Medicare A,B. Prescription benefit and pharmacy: no prescription coverage, uses [facility] in [facility]. CRC called pharmacy to inquire about pt's ykj-yq-pbwule expense for 5 day course of lovenox andshared cost w/ pt and . Financial concerns: no concerns voiced. Anticipated services at discharge: no needs noted at this time. Transportation at discharge: spouse will transport pt home. Social support: Geovanni. A: anticipate discharge w/in next 24 hours. P: This blurb writer or OCM colleague will continue to follow patient to assist w/ changing needs. CRC will collaborate w/ patient, medical team and family to formulate discharge plan. CRC may be reached on pager [phone] or by leaving a voice mail message at ext [phone]. Medical Team: Hospitalist Team, pager [phone]. Estee Loera RN, MSN, CRC Clinical Amusement Park Entertainer Office of Care Management Pager [phone] Phone: [phone] documented in this encounter H&P Notes * Memo Rosas, DO - 06/21/2010 8:07 AM EDT Inpatient Hospital Medicine - Admission Note Problem List: PE ID: [id number] y.o. Female presents to [facility] with unprovoked PE History of Present Illness: HPI 74 yo female with h/o HTN and hyperlipidemia presents for further evaluation and treatment of unprovoked PE. Patient states she was in her usual state of health then experienced acute onset of Right sided flank pain that radiated to her back. She reported respirophasic nature of the pain. She reported to [facility] ED for evaluation and was found to [...] nature of the pain. She reported to [facility] ED for evaluation and was found to [...] given today) Your Inpatient Medical Team at [facility] Name(s) of your inpatient provider(s): Dr. Goyo Lawson For questions regarding issues relating to your hospitalization on the Medical Service, please contact your inpatient physician through the [facility] Food Service Assistant . Issues after hours and on weekends will be handled by the Hospitalist staff on-call. Your Primary Care Provider ESTEE STINSON APRN General Instructions Provider Contact Information: Dr. Goyo Lawson Discharge References/Attachments: Discharge References/Attachments PULMONARY EMBOLISM: AFTER YOUR VISIT (HAITIAN) TIPS TO PREVENT BLOOD CLOTS: AFTER YOUR VISIT (HAITIAN) CONSISTENT VITAMIN K DIET: AFTER YOUR VISIT (HAITIAN) For questions regarding this document or issues relating to this hospitalization on the Medical Service, please contact your inpatient physician through the [facility] Food Service Assistant . Issues afterhours and on weekends will [...] 06/22/19 11 5:44 AM EDT CARDIAC ENZYMES ([facility]) Routine 06/21/2010 5:44 AM EDT CBC (WITH [...] (Bezet) 435 ms MUSE SYSTEM Calculated P Menno 52 degrees MUSE SYSTEM Calculated R Menno 7 degrees MUSE SYSTEM Calculated T Menno 43 degrees MUSE SYSTEM INTERPRETATION Normal sinus [...] 56(H) 25 - 37 sec [facility] Comment: Recommended therapeutic PTT range for full dose unfractionated heparin is 80-114 seconds. Blood specimen (specimen) 06/21/2010 5:45 AM EDT 06/21/2010 5:51 AM EDT Memo Rosas DO HEMATOLOGY ORDERABLE S Performing Organization Address [facility] Co de Phone Number [facility] * Protime-INR (06/21/2010 5:45 AM EDT) Prothrombin Time 13.9 12.3 - 14.7 sec [facility] Comment: [facility] Transfusion Committee Guidelines: INR less than 2.0, PTT less than OR equal to 43.5 seconds, or Fibrinogen greater than or equal to 100 mg/dl indicate adequate procoagulant activity for hemostasis in patients without underlying bleeding disorders. International Normalization Ratio 1.0 0.9 - 1.1 [facility] Blood specimen (specimen) 06/21/2010 5:45 AM EDT 06/21/2010 5:51 AM EDT Memo Rosas DO HEMATOLOGY ORDERABLE S [facility] [employer] * CARDIAC ENZYMES (06/21/2010 5:44 AM EDT) Troponin-T <0.03 <=0.03 ng/mL [facility] Comment: 0.03 ng/mL: Represents the 99th percentile upper reference limit for normals. >0.03 ng/mL: Elevated cardiac troponin T level indicative of myocardial damage. Diagnosis of acute, evolving or recent OR requires a typical rise and gradual fall [...] consensus document of the Joint Society of Cardiology/[place] College of Cardiology Committee for the redefinition of myocardial infarction. Journal of the [place] College of Cardiology 2000; 36: 959-969] Creatine [...] DO HEMATOLOGY ORDERABLE S Performing Organization Address [facility] Co de Phone Number [facility]LEX[facility] * Brain natriuretic peptide (on admission) (06/21/2010 5:44 AM EDT) NT-proBNP 44 <=125 pg/mL [facility] Blood specimen (specimen) 06/21/2010 5:44 AM EDT 06/21/2010 5:50 AM EDT Memo Rosas DO CHEMISTRY ORDERABLES Performing Organization Address [facility] de Phone Number [facility] * (ABNORMAL) Basic metabolic panel (06/21/2010 [...] EDT Memo Rosas DO HEMATOLOGY ORDERABLE S [facility] MARTÍNEZ * ECHOCARDIOGRAM TRANSTHORACIC (06/21/2010) Anatomical Region Laterality Modality Other 06/21/2010 Narrative 06/21/2010 11:55 AM EDT Procedure: ? Transthoracic Echocardiogram ? Patient: ? CAT BESTANINE F ? (Age): 1935(74) Med Rec#: ?[id number] ?Sex: ?F ? Site Loc: ?[facility] ?Ht / Wt: ??155(cm)/68(kg) Pt. Loc: ? Adult Floor ? BSA: ?1.67 Study Date: ?06/21/2010 ?Pt. Type: Inpatient Tape: ? Referring: Clau Rosas Wallpaper Consultant: Gemma Rebolledo RCS Interpreting Fellow: Fei Reardon Diagnosis:CPT Code(s): ??Echo Full (08476), ??Spectral Doppler (63587), Color Doppler (54388), Indication(s): ??Pulmonary embolus, R/O Rhythm: Sinus HR [...] ? Mid-Inferior ?Normal ? Mid-Inferoseptal ?Normal ? [facility]-Septal ? Normal ? [facility]-Anterior ? Normal ? [facility]-Lateral ?Normal ? [facility]-Inferior ? Normal ? [facility]-Tip ?Normal ? Chambers ?Value ?Units (Range) ? [...] 06/21/2010 11:55:10 Images reviewed and interpretation verified [facility] Cardiac Ultrasound Laboratory Procedure Note 06/21/2010 Procedure: Transthoracic Echocardiogram Patient: CAT Chavez (Age): 1935(74) Med Rec#: [id number] Sex: F Site Loc: [facility] Ht / Wt: 155(cm)/68(kg) Pt. Loc: Adult Floor BSA: 1.67 Study Date: 06/21/2010 Pt. Type: Inpatient Tape: Referring: Clau Rosas Wallpaper Consultant: Gemma Rebolledo RCS Interpreting Fellow: Fei Reardon Diagnosis:CPT Code(s): Echo Full (30109), Spectral Doppler (39140), Color Doppler (46878), Indication(s): Pulmonary embolus, R/O Rhythm: Sinus HR [...] Normal Mid-Posterolateral Normal Mid-Inferior Normal Mid-Inferoseptal Normal [facility]-Septal Normal [facility]-Anterior Normal [facility]-Lateral Normal [facility]-Inferior Normal [facility]-Tip Normal Chambers Value Units (Range) LV EF [...] 06/21/2010 11:55:10 Images reviewed and interpretation verified [facility] Cardiac Ultrasound Laboratory Unknown ECHO ORDERABLES [...] than 145 sec X 2 - call assistant housekeeping manager See Bolus dosing guidance for aPTT values [...] than 145 sec X 2 - call assistant housekeeping manager See Bolus dosing guidance for aPTT values [...] RN) documented in this encounter Care Teams Sourcing Specialist Relationship Specialty Start Date End Date Estee Stinson APRN PCP - General 01/09/10 10/12/14 documented as of this encounter
--- OUTSIDE RECORDS SUMMARY | 2023-12-12 09:43 | XMS_ITS | Encounter Summary ---
Author Organization [place] [address] Care Team Providers Care Glass Installer Name Role Phone Candie Skaggs MD Primary Care Provider [phone] Reason for Visit * Reason Comments Bilateral Leg Pain * Consultation (Routine) - Closed Specialty Diagnoses / Procedures Referred By Contac t Referred To Contact Pain [facility] Sp[facility] Center Diagnoses Bilateral hip pain Radiculopathy of lumbar region Lower extremity pain, left Lower extremity pain, right spine- BLE pain/ XR h/p 04/04/22 in eDH Rukhsana Mills PA [facility] [place] [address] [facility] [place] [address] Referral ID Status Reason Start Date Expiration Date V isits Requested Visits Authorized [id number] Closed Consult, Test & Treat 04/04/2022 04/04/2023 1 1 Encounter Details Date Type Department Care Team (Latest Contact Info) Description 06/10/2022 2:00 PM EDT Office Visit [place] [address] Candie Mandujano APRN [facility] [place] [address] Bilateral lumbar radiculopathy Social History Tobacco Use [...] Mandujano APRN - 06/10/2022 2:00 PM EDT [facility] Medical Decision Making: [...] MD Referring Provider: Rukhsana Mandujano APRN 06/10/2022 [facility] documented in this encounter Plan of Treatment Not on file documented as of this encounter Visit Diagnoses Diagnosis Bilateral lumbar radiculopathy documented in this encounter Care Teams Glass Installer Relationship Specialty Start Date End Date Candie Skaggs MD [address] [address] PCP - General Family Medicine 03/19/19 documented as of this encounter
--- OUTSIDE RECORDS SUMMARY | 2023-12-12 09:43 | XMS_ITS | Encounter Summary ---
Author Organization [facility] [place] [address] Care Team Providers Care Program Director Name Role Phone Candie Skaggs MD Primary Care Provider Reason for Visit * Consultation (Routine) - Authorized Specialty Diagnoses / Procedures Referred By Ko duarte Referred To Contact Dermatology Diagnoses Dysplastic nevus of skin Candie Skaggs MD [address] [place] [address] [facility] Dermatology [address] [place] [address] Referral ID Status Reason Start Date Expiration Date Visits Requested Visits Authorized [id number] Authorized Consult, Test & Treat PCP Updated and/or Approved 3 01/01/2024 6 6 Encounter Details Date Type Department Care Team (Late st Contact Info) Description 01/24/2023 10:30 AM EST Office Visit Dermatology at [facility] [address] [place] [address] Garfield Samuels MD [facility] [address] DALIA [place] [address] Neoplasm of unspecified behavior of [...] Light (or IPL) unit made by Evan ([employer]) and occasionally use a separate alexandrite or [...] N/A RTC: pending path []Note routed to field secretary []Recall placed in scheduling system []Appointment scheduled at checkout Scribe attestation: Jennifer Miller RN has performed the documentation for this encounter in the presence of and acting as a scribe for Garfield Samuels MD. I performed the above scribed service and agree with the accuracy of the documentation in this encounter. Reviewed and signed by: Garfield Samuels MD Dermatology [facility] * Garfield Samuels MD - 01/24/2023 10:30 AM EST Biopsy results: Consistent with Lentigo -benign pigmented lesion -no further intervention required Seen and reviewed by: Garfield Samuels MD Staff Horn Player Department of Dermatology documented in this encounter [...] AM EST 01/24/2023 10:45 AM EST Narrative [facility] - 01/24/2023 10:45 AM EST Specimen requisition ordered. ??Separate Pathology report to follow Garfield Samuels MD PATHOLOGY/CYTOLOGY [facility] [place] [address] * Surgical Pathology Report (01/24/2023 10:44 AM EST) Final Diagnosis [id number] ? Location: HDM The signing pathologist has (i) examined the relevant preparation(s) for the specimen(s) and (ii) rendered or confirmed the diagnosis(es). . ?Surgical Pathology DIAGNOSIS L eft cheek, skin shave biopsy: - ??Basal layer hyperpigmentation overlying scattered melanophages, consistent with lentigo Electronically signed by: ?Troy SMITH, PhD, [facility] Verified: ??01/31/2023 11:12 ??Dermatopathologist Performed at: ??-[facility] Dept. of Pathology, [place] [address] Lathe Turner: Ly Goodrich MD, FCAP, ??CLIA Certificate: [id number] SPECIMEN(S) SUBMITTED A - left cheek, skin [...] labeled A1. ??sdy 01/31/2023 11:12 AM EST [facility] SPECIMEN FROM SKIN / Unknown 01/24/2023 10:44 AM EST 01/24/2023 10:44 AM EST Garfield Samuels MD PATHOLOGY/CYTOLOGY O RDERABLES [facility] [place] [id number] [facility] [place] [address] documented in this encounter Visit Diagnoses Diagnosis Neoplasm of unspecified behavior of bone, soft tissue, and skin Seborrheic keratosis Other seborrheic keratosis Lentigines Other dyschromia Dermatitis Contact dermatitis and other eczema, due to unspecified cause documented in this encounter Care Teams Program Director Relationship Specialty Start Date End Date Candie Skaggs MD [address] [place] [address] PCP - General Family Medicine 03/19/19 documented as of this encounter
--- OUTSIDE RECORDS SUMMARY | 2023-12-12 09:43 | XMS_ITS | Encounter Summary ---
Author Organization [facility] Address [facility] [place] [address] Care Team Providers Care Cosmetic Consultant Name Role Phone Candie Skaggs MD Primary Care Provider [phone] Encounter Details Date Type Department Care Team (Late st Contact Info) Description 12/18/2020 Ancillary Procedure Radiology Library at [facility] [place] [phone] Candie Skaggs MD [address] [place] [address] Social History Tobacco Use Types Packs/Day Years [...] Skaggs MD IMG FILM LIBRARY ORD ERABLES [place], [place] documented in this encounter Visit Diagnoses Not on filedocumented in this encounter Care Teams Cosmetic Consultant Relationship Specialty Start Date End Date Candie Skaggs MD [address] [place] [address] PCP - General Family Medicine 03/19/19 documented as of this encounter
--- OUTSIDE RECORDS SUMMARY | 2023-12-12 09:43 | XMS_ITS | Encounter Summary ---
Author Organization [facility] [place] [address] Care Team Providers Care Bottling Attendant Name Role Phone IroquoisEstee vance Thu VEGA Primary Care Provider [phone] Reason for Visit * Reason Comments Skin Lesion Encounter Details Date Type Department Care Team (Late st Contact Info) Description 01/17/2012 3:50 PM EST Office Visit Dermatology at [facility] [address] [place] [address] Jessenia Donovan MD [facility] [address] [place] [address] Neoplasm of unspecified nature of bone, soft [...] supervision with direct supervision immediately available. (definition: [facility] Policy [...] concerns. Jessenia Donovan MD Resident in Dermatology [facility] Patient seen and evaluated with staff basket turner: Prisca Brantley MD Section of Dermatology [facility] documented in this encounter Plan [...] 6:35 PM EST) Surgical Pathology Report ? [facility] ? Provider: ?? ZION, ? Pt. Name: ?? LALY, NELSY F ?JESSENIA Hightower ? Acc #: ?[id number] ? Pt. ? Col Date: ?? 01/17/2012 [...] MD PATHOLOGY/CYT OLOGY ORDERABLES Performing Organization Address City/[facility] Co de Phone Number MAO MARTÍNEZ * [...] keratosis documented in this encounter Care Teams Bottling Attendant Relationship Specialty Start Date End Date Estee Novak APRN PCP - General 01/09/10 10/12/14 documented as of this encounter
--- OUTSIDE RECORDS SUMMARY | 2023-12-12 09:43 | XMS_ITS | Encounter Summary ---
Author Organization [facility] [place] [address] Care Team Providers Care Furniture Arranger Name Role Phone Candie Skaggs MD Primary Care Provider [phone] Reason for Visit * Reason Comments Travel Consult Encounter Details Date Type Department Care Team (Late st Contact Info) Description 04/15/2022 2:00 PM EST Office [place] [phone] Leatha Sanchez, [employer] [facility] [place] [address] Counseling for travel; Need for immunization against [...] (list from first to last): [facility] ([facility], [facility]) then [facility] ([facility], [facility]) via [place] Departure date: 04/21/22 Length of trip: 1 month Purpose of travel: vacation visiting [employer] Type of environment: mountains, urban Accommodations: hotel in [facility] and [facility]; guest house in [facility] Medical History: Medical problems: Patient Active Problem List Diagnosis Code ??? Pulmonary embolism, unprovoked I26.99 ??? Pericardial effusion I31.39 ??? Hypertension I10 ??? GERD (gastroesophageal reflux disease) K21.9 ??? Hyperlipidemia E78.5 ??? Squamous cell carcinoma [id number] ??? History of SCC (squamous cell carcinoma) [...] travel. Follow-up Recommendations: Advised traveler to contact [facility] if travel plans change or [...] disease documented in this encounter Care Teams Furniture Arranger Relationship Specialty Start Date End Date Candie Skaggs MD [address] [place] [address] PCP - General Family Medicine 03/19/19 documented as of this encounter
--- OUTSIDE RECORDS SUMMARY | 2023-12-12 09:43 | XMS_ITS | Encounter Summary ---
Author Organization [facility] [place] [address] Care Team Providers Care Recording Studio Internship Name Role Phone Candie Skaggs MD Primary Care Provider [phone] Encounter Details Date Type Department Care Team [...] on filedocumented in this encounter Care Teams Recording Studio Internship Relationship Specialty Start Date End Date Candie Skaggs MD [address] [place] [address] PCP - General Family Medicine 03/19/19 documented as of this encounter
--- OUTSIDE RECORDS SUMMARY | 2023-12-12 09:43 | XMS_ITS | Encounter Summary ---
Author Organization [facility] [place] [address] Care Team Providers Care Supervisor Pullet Farm Name Role Phone Candie Skaggs MD Primary Care Provider [phone] Encounter Details Date Type Department Care Team (Latest Contact Info) Description 07/05/2021 10:45 AM EDT Office Visit [place] [phone] Audra Fields MD [facility] DR HEMATOLOGY [place] [address] Other pulmonary embolism without acute cor pulmonale, [...] is not averse to continuing for the detention. 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 LABORATORY STUDIES From 06-22-2020 [facility] (scanned in eDH) Unremarkable CBC BUN/CR /.1 Normal LFTs RADIOGRAPHIC STUDIES Reviewed above. Reports scanned. IMPRESSION Abby uRffin is a 85 y.o. 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 She's doing well with low dose rivaroxaban anticoagulation and is a good candidate for continuing for the detention. PLAN/RECOMMENDATIONS I reviewed my impression with Abby and Geovanni. I reviewed the difference between an unprovoked VTE event and one that may have been precipitated by temporary risk factors (e.g., surgery, trauma, travel, hospitalization, immobilization) and discussed the additive nature of factors such as hereditary or acquired thrombophilia (e.g., factor V Leiden, PT [id number]), ABO blood type (non-O > O), dehydration, [...] daily which is the FDA-approved dose for detention VTE prevention. 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 She is perfectly amenable tothat approach. The risk/benefit calculation for continuing with anticoagulation may military exchange wireless manager time, however, and should be revisited periodically. [...] In summary: ?? Continue rivaroxaban for the detention with periodic review of risk/benefit. ?? The 10 mg once daily dose is appropriate for detention secondary prevention ?? Seek medical attention for [...] should the need arise. Audra Fields MD [facility] documented in this encounter Plan of Treatment Not on file documented as of this encounter Visit Diagnoses Diagnosis Other pulmonary embolism without acute cor pulmonale, unspecified chronicity Anticoagulated by anticoagulation treatment Encounter for long-term (current) use of anticoagulants documented in this encounter Care Teams Supervisor Pullet Farm Relationship Specialty Start Date End Date Candie Skaggs MD [address] [place] [address] PCP - General Family Medicine 03/19/19 documented as of this encounter
--- OUTSIDE RECORDS SUMMARY | 2023-12-12 09:43 | XMS_ITS | Encounter Summary ---
Author Organization [facility] [place] [address] Care Team Providers Care Rhia Name Role Phone Candie Skaggs MD Primary Care Provider [phone] Reason for Referral * Consultation (Routine) - Authorized Specialty Diagnoses / Procedures Referred By Ko duarte Referred To Contact Dermatology Diagnoses Dysplastic nevus of skin Candie Skaggs MD [address] [place] [address] [facility] Dermatology [address] [place] [address] Referral ID Status Reason Start Date Expiration Date Visits Requested Visits Authorized [id number] Authorized Consult, Test & Treat PCP Updated and/or Approved 3 01/01/2024 6 6 Encounter Details Date Type Department Care Team (Latest Contact Info) Description 01/10/2023 Transcribe Orders eDH Incoming Referrals [phone] Candie Skaggs MD [address] [place] [address] Dysplastic nevus of skin Social [...] unspecified documented in this encounter Care Teams Rhia Relationship Specialty Start Date End Date Candie Skaggs MD [address] [place] [address] PCP - General Family Medicine 03/19/19 documented as of this encounter
--- OUTSIDE RECORDS SUMMARY | 2023-12-12 09:43 | XMS_ITS | Encounter Summary ---
Author Organization [facility] [address] Care Team Providers Care Engineering Professor Name Role Phone Candie Skaggs MD Primary Care Provider [phone] Encounter Details Date Type Department Care Team [...] on filedocumented in this encounter Care Teams Engineering Professor Relationship Specialty Start Date End Date Candie Skaggs MD [address] [place] [address] PCP - General Family Medicine 03/19/19 documented as of this encounter
--- OUTSIDE RECORDS SUMMARY | 2023-12-12 09:43 | XMS_ITS | Encounter Summary ---
Author Organization [facility] [place] [address] Care Team Providers Care Buffing Machine Operator Semiautomatic Name Role Phone Candie Skaggs MD Primary Care Provider [phone] Encounter Details Date Type Department Care Team (Late st Contact Info) Description 03/19/2019 2:30 PM EST Office [place] [address] Charisma Zhang, RN [facility] [place] [address] Other specified counseling Social History Tobacco Use [...] from first [facility] last[facility] Departure date: Apr 13 Length of trip: 3 weeks Purpose of travel: spriitiual [place] of environment[place] Accommodations: Guest house Medical History: Medical problems: Patient Active Problem List Diagnosis Code ??? Pulmonary embolism, unprovoked I26.99 ??? Pericardial effusion I31.3 ??? Hypertension I10 ??? GERD (gastroesophageal reflux disease) K21.9 ??? Hyperlipidemia E78.5 ??? Squamous cell carcinoma [id number] ??? History of SCC (squamous cell carcinoma) [...] counseling documented in this encounter Care Teams Buffing Machine Operator Semiautomatic Relationship Specialty Start Date End Date Candie Skaggs MD [address] [place] [address] PCP - General Family Medicine 03/19/19 documented as of this encounter
--- OUTSIDE RECORDS SUMMARY | 2023-12-12 09:44 | XMS_ITS | Data Portability ---
Author Organization [place] - [facility], [facility] [place] Address [address] [place] [address] Care Team Providers Care Satellite Tv Installer Name Role Phone KUMAR SCHULTZ Primary Care Provider Assessment No assessment recorded. Plan of Treatment Reminders Order Date Submit Date Provider Last Modified By Organization Details Last Modified Time Details Appointments None recorded. Lab None recorded. Referral None recorded. Procedures None recorded. Surgeries None recorded. Imaging None recorded. Medication Orders famotidine 40 mg tablet 2021 022 [facility] [address] [place], [address], 15:06:03 Patient TargetsNo targets recorded. Patient InstructionsNo instructions recorded. Reason for Referral None Reported. Results Created Date Observation Date Name Description Value Unit Range Abnormal Flag Note LastModifiedBy Organization Detail LastModifiedTime 06/20/19 22 06/15/2021 MRI, abdom en, w/wo contr ast No observ ation record ed. [email or web address] [facility] (Radiology) [address] [place], [address], 06/27/2021 14:27:56 Result Notes None recorded. Problems Name Problem SNOMED Code Status Onset Date Resolution Date Notes Provider Name and Address Organization Details Recorded Time Gastroesophage al reflux disease without esophagitis 666772736 Active 2021 Geovanni Kramer MD [address] [place] [address], [address], [place], [address] [facility] [place] - .[facility] 15:09:11 Problem Notes None recorded. Procedures Surgical History Date Name Laterality Status Provider Name and Address Organization Details Recorded Time Appendectomy completed Geovanni butt MD [address] [facility],[address] [facility], [place], [address], [facility] - .[facility] 05/30/2021 14:59:40 Imaging Results Imaging Date Name Status LastModified by Organiz ation Details LastModified Time 06/15/2021 MRI, abdomen, w/wo contrast completed [email or web address] [facility] (Radiology) [address] [place], [address], 06/27/2021 14:27:56 Procedure Notes None recorded. Medical Equipment None Reported. Allergies Allergen ID Allergen Name Allergen Category Reaction Reaction Severity Criticality Documentation Date Start Date Code Code System Note Provider Name and Address Organization Details Recorded Time [id number] codeine medicatio n Not available Not available Not available 05/30/2021 2670 RxNorm Geovanni Kramer MD [address] [facility], [address] [place], [address], [place] - .[facility] 15:00:03 Medications Name Sig Start Date [...] Or Have You Ever Used Smokeless Tobacco? [id number] Information not available 05/30/2021 Do You Or [...] Diagnosis/Indication Diagnosis SNOMED-CT Code Diagnosis ICD10 Code [id number] Geovanni Mccoyrk_[address] [facility] [address] [place] [address],[place] [address] 05/30/2021 08:06:32 05/30/2021 16:13:14 Gastroesophageal reflux disease without esophagitis 892703223 K21.9 46746957 Geovanni Mccoyrk_5 [address] [place] [address] 0 06/27/2021 13:08:09 06/27/2021 13:55:18 Gastroesophageal reflux disease without esophagitis 418623095 K21.9 Health Concerns Section Related Observation LastModified by Organization Detai ls LastModified Time None Recorded Concern Status LastModified by Organization Details LastModified Time None Recorded Advance Directives Directive None Recorded Payers Encounter Date Sequence Insurance Name Policy Number Policy Baez Covered Member ID Baez Member ID Guarantor Name 05/30/2021 1 MEDICARE [place]: [employer] Abby F Laly [id number] Abby Laly 06/27/2021 1 MED[place]ARE [place]: [employer] Abby F Laly [id number] Abby [place] Notes Date Note Type Note Provider Name [...] Not taking antacids. Denies BRBPR or melena. 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 Denies BRBPR or melena. senior safety support manager of a meditation cushion 06/27/21: Belching improved substantially on famotidine 40 mg bid and reduced acidic foods. Had a normal upper GI series 06/15/21. CTAP negative 2 months ago per pt at [place]. Geovanni Kramer MD [address] [place] [address],[address], [place], [address], [facility] - .[facility] 06/27/2021 13:54:02 OBGyn Episode No OBEpisode recorded.
[2023-12-12 10:07] LABS: Anion Gap 9.1 mmol/L (3-11); BUN 19 mg/dL (7-18); CO2 27.9 mmol/L (21.0-32.0); Chloride 108 mmol/L (98-107); Estimated GFR 54.19 (mL/min/1.73m2); Sodium 145 mmol/L (136-145)
[2023-12-12 10:24] LABS: Potassium 2.9 mmol/L (3.5-5.1)
[2023-12-15 10:58] LABS: Chromogranin A 69 ng/mL (<93)
[2023-12-15 13:59] LABS: Adrenocorticotropic Hormone, P 22 pg/mL
[2023-12-17 12:57] LABS: Metanephrine, Free <0.20 nmol/L (<0.50); Normetanephrine, Free 0.44 nmol/L (<0.90)
[2023-12-17 16:18] LABS: Renin Activity, Plasma 1.9 ng/mL/h
[2023-12-17 16:40] LABS: Serotonin 70 ng/mL (<=230)
== END 2023-12-12 09:37 | disposition home or self-care (01) ==
LOC: LBO 09:40
PROVIDERS: PCP Family Medicine; Visit Provider Internal Medicine
DX: I10 Essential (primary) hypertension (principal); I26.99 Other pulmonary embolism without acute cor pulmonale; R73.01 Impaired fasting glucose; E78.5 Hyperlipidemia, unspecified; R10.9 Unspecified abdominal pain; E87.6 Hypokalemia; I16.9 Hypertensive crisis, unspecified
CPT/HCPCS: 36415; 80051; 82533; 84520; 82024; 82088; 82565; 83735; 83835; 84244; 84260; 86316

== ENCOUNTER 2023-12-17 14:40 | Outpatient (CLI) | payer MEDICARE, SELFPAY ==
[2023-12-17 15:35] LABS: Anion Gap 7.5 mmol/L (3-11); CO2 27.5 mmol/L (21.0-32.0); Chloride 109 mmol/L (98-107); Potassium 3.7 mmol/L (3.5-5.1); Sodium 144 mmol/L (136-145)
== END 2023-12-17 14:41 | disposition home or self-care (01) ==
LOC: LBO 14:41
PROVIDERS: PCP Family Medicine; Visit Provider Internal Medicine
DX: E87.6 Hypokalemia (principal)
CPT/HCPCS: 36415; 80051

== ENCOUNTER 2023-12-17 15:20 | Outpatient (REF) | payer MEDICARE, SELFPAY ==
--- OUTSIDE RECORDS SUMMARY | 2023-12-17 15:26 | XMS_ITS | Encounter Summary ---
Author Organization [facility] [place] [address] Care Team Providers Care Assurance Analyst Name Role Phone Candie Skaggs MD Primary Care Provider [phone] Reason for Referral * Consultation (Routine) - Pending Review Specialty Diagnoses / Procedures Referred By Ko duarte Referred To Contact Gastroenterology Diagnoses Functional dyspepsia Benita Mclean MD [facility] [place] [address] Gastroenterology, [address] [address] Referral ID Status Reason Start Date Expiration Date Visits Requested Visits Authorized [id number] Pending Review Consult, Test & Treat 10/14/2023 04/11/2024 1 1 Encounter Details Date Type Department Care Team (Late st Contact Info) Description 10/14/2023 Orders [place] [address] [facility] [address] Functional dyspepsia Social History Tobacco Use Types Packs/Day Years Used Date Smoking Tobacco: Former Cigarettes 0.5 3 Smokeless Tobacco: Former Quit: 06/22/1979 Alcohol Use Standard Drinks/Week Comments Yes 2 (1 standard drink = 0.6 oz pur e alcohol) [facility] Utilities Answer Date Recorded In the [...] time in the past 12 m [facility], were you homeless or living in a detention (including now)? No 10/13/2023 IPV Inpatient Questions [...] stomach documented in this encounter Care Teams Assurance Analyst Relationship Specialty Start Date End Date Candie Skaggs MD [address] [place] [address] PCP - General Family Medicine 03/19/19 documented as of this encounter
--- OUTSIDE RECORDS SUMMARY | 2023-12-17 15:26 | XMS_ITS | Continuity of Care Document ---
Author Organization [place] - [facility], [facility] Address [address] [place] [address] Assessment No assessment recorded. Plan of Treatment Reminders Order Date Submit Date Provider Last Modified By Organization Details Last Modified Time Details Appointments Medicare Wellness 40 (Subs) 2023 11:20A M KUMAR SCHULTZ Not available Not available Not available Lab urinalysi s, complete 2023 024 [place] [id number] [facility] (Registration ), [address] [place] [address] [place], [address], 10/15/2023 07:31:06 CMP, serum or plasma 2023 024 RAPHAEL [facility] (Registration ), [address] [place] [address] [place], [address], 10/08/2023 21:31:32 lipase, serum or plasma 2023 024 [place] [id number] [facility] (Registration ), [address] [place] [address] [place], [address], 10/15/2023 07:30:38 CBC w/ diff 2023 024 [place] [id number] [facility] (Registration ), [address] [place] [address] [place], [address], 10/15/2023 07:30:47 urinalysi s, dipstick 2023 024 [facility], [address] [place], [address], 10/08/2023 15:28:01 magnesium , serum or plasma 2023 024 [email or web address] n21 [facility] (Registration ), [address] [place] [address] [place], [address], 10/15/2023 07:30:54 Referral None recorded. Procedures None recorded. Surgeries None recorded. Imaging electroca rdiogram 2023 024 [email or web address], [address] [place] [address], [address], 10/08/2023 17:26:09 Medication Orders simethico ne 80 mg chewable tablet 2023 024 anival [facility], [address] [place], [address], 10/08/2023 15:27:58 pantopraz ole 20 mg tablet,de layed release 2023 024 RAPHAEL [facility], [address] [place], [address], 10/15/2023 07:38:03 Valtrex 500 mg tablet 2023 024 anival [facility], [address] [place], [address], 10/08/2023 15:27:58 Patient TargetsNo targets recorded. Patient InstructionsNo instructions recorded. Reason for Referral None Reported. Results Created Date Observation Date Name Description Value Unit Range Abnormal Flag Note LastModifiedBy Organization Detail LastModifiedTime 10/08/19 24 10/08/2023 urina lysis , dipst ick Leukocytes Negati ve Not Available [facility] [address] [place], [address], 10/08/2023 15:13:16 10/08/19 24 10/08/2023 urina lysis , dipst ick Nitrite negati ve Not Available [address], [address], 10/08/2023 15:13:16 10/08/19 24 10/08/2023 urina lysis , dipst ick Urobilinogen .2 Not Available [address], [address], 10/08/2023 15:13:16 10/08/19 24 10/08/2023 urina lysis , dipst ick Protein Negati ve Not Available [address], [address], 10/08/2023 15:13:16 10/08/19 24 10/08/2023 urina lysis , dipst ick pH 6.0 Not Available [address], [address], 10/08/2023 15:13:16 10/08/19 24 10/08/2023 urina lysis , dipst ick Blood Non-He molyze d: Modera te Not Available [address], [address], 10/08/2023 15:13:16 10/08/19 24 10/08/2023 urina lysis , dipst ick Specific Osborn 1.015 Not Available [address], [address], 10/08/2023 15:13:16 10/08/19 24 10/08/2023 urina lysis , dipst ick Ketone Modera te Not Available [address], [place], [address], 10/08/2023 15:13:16 10/08/19 24 10/08/2023 urina lysis , dipst ick Bilirubin Negati ve Not Available [address], [address], 10/08/2023 15:13:16 10/08/19 24 10/08/2023 urina lysis , dipst ick Glucose Negati ve Not Available [address], [address], 10/08/2023 15:13:16 10/08/19 24 10/08/2023 urina lysis , dipst ick Appearance Clear Not Available [address], [address], 10/08/2023 15:13:16 10/08/19 24 10/08/2023 urina lysis , dipst ick Color Pale Yellow Not Available [address], [address], 10/08/2023 15:13:16 10/08/19 24 10/08/2023 elect rocar diogr am No observ ation record ed. [email or web address] [address], [address], 10/08/2023 17:26:08 10/08/19 elect rocar diogr am No observ ation record ed. [email or web address] Not Available 2023 16:29:35 10/19/19 24 10/19/2023 santana duarte Name: Jose Alejandro Briceño Unit #: [id number] Loc: ER Orderi [facility] er: Accoun t #: [id number] Status : REG ER Primar y [...] Per the ultras ound techno logist , patien t report ed 5-07/27 epigas tric tender ness. Biliar y ducts: Common bile duct not dilate d. Pancre as: Unrema rkable as visual ized. Right kidney : Questi onable 4 mm right renal calcul us. No right hydron ephros is. IMPRES YEMI: 1. No sonogr aphic eviden ce for cholec ystiti s. 2. Findin gs as above. Dictat ed and Jose ticate d by: Karen Maddox MD. Orderi ng:Mat Reynolds MD Access ion#=[id number] Ordere d By: CC: ------ ------ ------ ------ ------ ------ ------ ------ ------ ------ ------ ------ ---- Dictat ed By: Report s vrad 0921 1040 Transc ribed By: Gloria Spears 09/01/ 24 0921 This is privil eged, confid ential inform ation intend ed only for the provid er named. Any use or distri bution by any person other than this provid er is strict ly prohib ited. If you receiv e this report in error, please notify us immedi xochilt at and return the origin al report to us at the addres s above. Thank- you. [email or web address] [facility] [address], [place], [address] 10/21/2023 20:07:29 10/19/1910/19/2023 ultra sound imagi ng repor t Patien t Name: Jose Alejandro Briceño Unit #: [id number] Loc: ER Orderi ng Provid er: Rodolfo Morales M.D. Accoun t #: [id number] Status : DEP ER Primar y Care [...] error, please notify us immedi ately at [phone] and return the origin al report to us at the addres s above. Thank- you. [email or web address] [facility] [address] [place], [address] 10/21/2023 20:07:29 11/03/19 24 06/20/2021 imagi ng/di agnos tic resul t No observ ation record ed. [email or web address] Not Available 11/02 20:06:19 11/03/19 24 06/18/2018 imagi ng/di agnos tic resul t No [...] ine imagi ng rpt Patien t Name: Jose Alejandro Briceño Unit #: [id number] Loc: DI Orderi ng Provid er: Lambert Dias t #: [id number] Status : REG CLI Primar y [...] l is above 35 percen t). IMPRES EYMI: 1. No eviden ce of obstru ction [...] the addres s above. Thank- you. INTERFACE [facility] [address] , [place], [address] 11/25/2023 13:25:42 Result Notes None recorded. Problems Name Problem SNOMED Code Status Onset Date Resolution Date Notes Provider Name and Address Organization Details Recorded Time Hyperlip idemia 55285330 Active 2004 MICHAEL Reyes - [facility] 4 11:53:59 Gastroes ophageal reflux disease without esophagi tis 315116567 Active 2001 [facility] 4 11:46:37 Lichen planus 3680609 Active 2002 [facility] in [facility] 4 11:54:41 History of disorder of digestiv e system 641001951 Active 2003 Hx of divertic ulitis -- recurren t bouts since 2003 [facility] 4 11:49:07 History of clinical finding in subject 773229688 Completed 200904/07/2009 Not Available [facility] 3 05:36:29 Essentia l hyperten yemi 71687096 Active 2004 [facility] 4 11:46:26 [place]weig ht 168061590 Active 2013 (BMI 25-29.9) [facility] 4 11:55:29 Herpesvi marci infectio n 28215552 Active 2014 Genital herpes -- L buttock [facility] 4 11:48:00 Haque' s esophagu s 265625568 Active 2014 last endo 11/01 [facility] 4 11:45:08 Anxiety disorder 154671783 Active 2014 [facility] 4 11:10:17 Pain in thoracic spine 635251337 Completed 201511/23/2015 11/16/19 16 - Comments only - Kumar Schultz MD - Muscular , R trap vs rhomboid s. Advised local massage, muscle rubs, heat, etc. Problem Code: M54.9; Problem Code Type: ICD-10; Not Available [facility] 3 05:36:30 Epigastr ic pain 07040452 Completed 201706/06/2017 Problem Code: R10.13; Problem Code Type: ICD-10; Not Available [facility] 3 05:36:30 History of nutritio nal disorder 410516629 Active 2017 Hx of hypokale juana -- likely related to thiazide diuretic but pt reluctan t to d/c [facility] 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 4 11:57:37 Acute gastroen teritis 66452680 Completed 201803/27/2018 03/22/19 19 - Comments only - Kumar Schultz MD - Resolved . 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 4 11:53:43 Long-ter m current use of anticoag ulant 441200401 Active 2020 [facility], 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 Arthriti s, hips, bilatera l [facility] 4 11:54:24 Actinic keratosi s Active 2020 distal L nose [facility] 4 11:10:06 Elevated blood-pr essure reading without diagnosi s of hyperten yemi 400044210 Active 2020 Labile hyperten yemi [facility] 4 11:46:14 Screenin g for osteopor osis Active 2022 [facility] 4 11:57:55 Hearing loss 83223156 Completed 202204/17/2022 Problem Code: H91.90; Problem Code Type: ICD-10; Not Available [facility] 3 05:36:34 Trigger finger of right hand 69460821633 195372 Active 2022 Trigger finger of right ring finger [facility] 4 11:58:33 Lumbosac ral radiculo conrad 9023534 Active 2022 [facility] 4 11:55:12 Pulmonar y embolism 97734020 Completed 202103/12/2022 Problem Code: I26.99; Problem Code Type: ICD-10; Not Available [facility] 3 05:36:43 Divertic ulitis 434545617 Completed 200311/13/2022 Not Available [facility] 3 05:36:43 Pain in right hip joint 44321177175 9102 Completed 202011/13/2022 12/13/19 21 - Comments only - Kumar Schultz MD - will obtain xray of hip although i suspect pain is more muscular in origin. If no evidence of severe DJD, would refer to PT. (otherwi se to ortho). Reviewed basic stretche s she can try meanwhil e. Problem Code: M25.551; Problem Code Type: ICD-10; Not Available [facility] 3 05:36:44 Diplopia 26884339 Completed 201111/16/2015 Problem Code: H53.2; Problem Code Type: ICD-10; Not Available [facility] 3 05:36:44 Dyspnea 533113378 Completed 201703/12/2022 Problem Code: R06.09; Problem Code Type: ICD-10; Not Available [facility] 3 05:36:44 Chronic rhinitis 72300916 Completed 201703/12/2022 Problem Code: J31.0; Problem Code Type: ICD-10; Not Available [facility] 3 05:36:44 Localize d eruption of skin 779652547 Completed 201903/07/2020 Problem Code: R21; Problem Code Type: ICD-10; Not Available [facility] 3 05:36:45 Neoplasm of skin 914809793 Completed 202001/23/2021 Not Available [facility] 3 05:36:45 Hyperten sive disorder 69518441 Completed 200411/13/2022 Not Available [facility] 3 05:36:45 Counseli ng Completed 202003/12/2022 Problem Code: Z71.89; Problem Code Type: ICD-10; Not Available [facility] 3 05:36:46 Pulmonar y embolism 19833292 Completed 201011/08/2014 Problem Code: 415.19; Problem Code Type: ICD-9; Not Available [facility] 3 05:36:47 Dysphagi a 72116294 Completed 201703/12/2022 Problem Code: R13.10; Problem Code Type: ICD-10; Not Available [facility] 05:36:47 Obesity 703290014 Completed 201311/13/2022 Problem Code: E66.9; Problem Code Type: ICD-10; Not Available [facility] 05:36:47 Greater trochant jeremi pain syndrome 2201343 Completed 201505/23/2017 Problem Code: M70.60; Problem Code Type: ICD-10; Not Available [facility] 05:36:48 Long-ter m current use of drug therapy 277844144 Completed 202003/12/2022 Problem Code: Z79.899; Problem Code Type: ICD-10; Not Available [facility] 05:36:48 Fatigue 87547612 Completed 202011/13/2022 Problem Code: R53.83; Problem Code Type: ICD-10; Not Available [facility] 05:36:49 Essentia l hyperten yemi 58460580 Completed 201703/12/2022 Problem Code: I10; Problem Code Type: ICD-10; An [facility] 11:46:26 Genital herpes simplex 80217327 Completed 201411/13/2022 Not Available [facility] 05:36:49 Nicotine dependen ce 45994333 Completed 201003/12/2022 Problem Code: Z87.891; Problem Code Type: ICD-10; Not Available [facility] 05:36:49 Lumbosac ral radiculo conrad 9785179 Completed 201902/25/2020 Problem Code: M54.16; Problem Code Type: ICD-10; An miller [facility] 4 11:55:12 Divertic ulitis of intestin e 088944458 Completed 200311/13/2022 01/24/20 21 - Comments only - Kumar Schultz MD - and recurren t. Completi ng Abx, sx resolvin g. REviewed general manageme nt strategi es. Problem Code: K57.92; Problem Code Type: ICD-10; Not Available [facility] 3 05:36:51 Pulmonar y embolism 03704636 Completed 202011/13/2022 07/06/19 21 - Comments only - Kumar Schultz MD - Therapeu tic INR, continue current Coumadin with recheck in 1 week. Consider transiti on to Eliquis given availabi lity of reversal agent. Age appropri ate dosing would be 2.5 mg twice daily, starting once INR is less than 2. Problem Code: I26.99; Problem Code Type: ICD-10; Not Available [facility] 3 05:36:52 Pain in lower limb 54327459 Completed 202003/07/2020 Problem Code: M79.606; Problem Code Type: ICD-10; Not Available [facility] 3 05:36:52 Gastroes ophageal reflux disease 479592990 Completed 200111/13/2022 Not Available [facility] 3 05:36:53 Screenin g for disorder Completed 201505/23/2017 Problem Code: Z13.9; Problem Code Type: ICD-10; Not Available [facility] 3 05:36:53 Health conditio n feared but not present 14125829638 9109 Completed 201603/07/2017 Problem Code: Z71.1; Problem Code Type: ICD-10; Not Available [facility] 3 05:36:53 Blood glucose outside referenc e range 700247189 Completed 201811/13/2022 03/12/19 23 - Comments only - Kmuar Schultz MD - stable, A1C 6.2. Continue lifestyl e manageme nt. Problem Code: R73.09; Problem Code Type: ICD-10; Not Available [facility] 3 05:36:53 Vomiting 536527640 Completed 202010/16/2020 Problem Code: R11.10; Problem Code Type: ICD-10; Not Available [facility] 3 05:36:54 Pelvic and perineal pain 195183684 Completed 201503/07/2017 Problem Code: R10.2; Problem Code Type: ICD-10; Not Available [facility] 3 05:36:55 Dyspnea 268611018 Completed 201706/06/2017 Problem Code: R06.00; Problem Code Type: ICD-10; Not Available [facility] 3 05:36:55 Polymyal gale rheumati ca 50388924 Completed 202011/13/2022 04/24/19 22 - Comments only - Kumar Schultz MD - Well-con trolled on very low-dose predniso ne, telly FERNANDEZ may make final wean off predniso ne difficul t. Will review inflamma tory markers likely drawn by jared graham physicia n in late March . Continue current 2 to 3 mg a day. Problem Code: M35.3; Problem Code Type: ICD-10; Not Available [facility] 3 05:36:56 Eustachi an tube disorder 40002404 Completed 201511/16/2015 Problem Code: H69.80; Problem Code Type: ICD-10; Not Available [facility] 3 05:36:56 Acute sinusiti s 19160092 Completed 201511/16/2015 Problem Code: J01.90; Problem Code Type: ICD-10; Not Available [facility] 3 05:36:57 History of disorder of digestiv e system 961325126 Completed 201411/13/2022 Problem Code: Z87.19; Problem Code Type: ICD-10; An miller [facility] 4 11:49:07 Blood chemistr y outside referenc e range 327319937 Completed 201706/26/2020 Problem Code: R79.89; Problem Code Type: ICD-10; Not Available [facility] 3 05:36:58 Type 2 diabetes mellitus without complica tion 183373612 Completed 201811/13/202220 22 - Comments only - Kumar Schultz MD - Diet controll ed, due for follow-u p A1c in 1 month. Will review whether this was checked with recent labs. Problem Code: E11.9; Problem Code Type: ICD-10; Not Available [facility] 3 05:36:59 Seborrhe ic keratosi s 902728351 Active 2022 [facility], [facility] 4 11:57:59 Chronic dermatit is 07036151 Active 2022 [facility], [facility] 11:45:32 Labile diastoli c hyperten yemi 49822478 Active 2023 KUMAR SCHUTLZ MD [address], [place], [address] , [facility] 16:57:30 Burping 514472601 Active 2023 GRAEME OLIVARES MA [facility], [facility] 19:18:33 Lichen sclerosu s 752372766 Active 2023 GRAEME OLIVARES MA [facility], [facility] 16:19:44 Problem Notes None recorded. Procedures Surgical History None recorded. Imaging Results Imaging Date Name Status LastModified by Organization Details LastModified Time 10/08/2023 electrocardiogram completed [address], [address], 10/08/2023 17:26:08 Procedure Notes None recorded. Medical Equipment None Reported. Allergies Allergen ID Allergen Name Allergen Category Reaction Reaction Severity Criticality Documentation Date Start Date Code Code System Note Provider Name and Address Organization Details Recorded Time 09627 lisinopri l medicatio n rash moderate Not available 12/27/20222011 07405 RxNorm [facility], [facility] 11:59:12 62771 codeine medicatio n other moderate Not available 12/27/20222001 2670 RxNorm No react ion enter ed [facility] 4 11:58:58 [address] [facility] other moderate Not available 06/20/20232011 25388 RxNorm [facility]i ng [facility] 4 11:59:52 Medications Name Sig Start [...] needed for blood pressure over 170 active [facility] Not Available Not Available No t Available [...] 179 mm[Hg] 79 mm[Hg] ELISHA SCOTT MA [facility] 4 14:13:49 Social History Question Answer Notes LastModified by Organizat ion Details LastModified Time Tobacco Smoking Status Former Smoker SUHAIL MCGEE RN [facility], [facility] 12/31/2022 16:07:55 Do You Have An Advance Directive? Yes Information not available 12/31/2022 When Did You Quit Smoking? 16+yearssinc elastcigaret te Information not available 12/31/2022 Are There Any Guns Present In Your Home? No Information not available 12/31/2022 Do You Have A Medical Power Of Automobile Sales Consultant? Yes Information not available 12/31/2022 Do You [...] Time Tdap 07/15/2012 completed Not Available [facility] 03:53:28 zoster live 05/08/2009 completed Not Available [facility] 12/27/2022 03:53:29 Influenza, high-dose, trivalent, PF 10/25/2016 completed Not Available [facility] 12/27/2022 03:53:29 Influenza, high-dose, trivalent, PF 12/04/2017 completed Not Available [facility] 12/27/2022 03:53:29 Td(adult) unspecified formulation 02/03/2006 completed Not Available [facility] 12/27/2022 03:53:29 Influenza, split virus, trivalent, preservative 2014 completed Not Available [facility] 12/27/2022 03:53:30 Influenza, split virus, trivalent, preservative 11/16/2015 completed Not Available [facility] 12/27/2022 03:53:30 Influenza, high-dose, quadrivalent, PF 12/15/2019 completed Not Available [facility] 12/27/2022 03:53:31 COVID-19, mRNA, LNP-S, PF, 100 mcg/0.5mL dose or 50 mcg/0.25mL dose 04/27/2021 completed Not Available [facility] 12/27/2022 03:53:31 COVID-19 vaccine, vector-nr, rS-Ad26, PF, 0.5 mL 06/13/2020 completed Not Available [facility] 12/27/2022 03:53:32 COVID-19 vaccine, vector-nr, rS-Ad26, PF, 0.5 mL 12/12/2020 completed Not Available [facility] 12/27/2022 03:53:32 Pneumococcal conjugate PCV20, polysaccharide [id number] conjugate, adjuvant, PF 04/20/2022 completed Not Available [facility] 12/27/2022 03:53:32 COVID-19, mRNA, LNP-S, PF, 50 mcg/0.5 mL dose 01/17/2022 completed Not Available [facility] 12/27/2022 03:53:32 pneumococcal polysaccharide PPV23 07/15/2012 completed Not Available [facility] 2022 03:53:33 Hep B, unspecified formulation 05/08/2009 completed Not Available [facility] 12/27/2022 03:53:33 Hep A, unspecified formulation 10/14/2014 completed Not Available [facility] 12/27/2022 03:53:33 Hep A, unspecified formulation 02/03/2006 completed Not Available [facility] 12/27/2022 03:53:33 influenza, unspecified formulation 11/27/2001 completed Not Available [facility] 12/27/2022 03:53:34 influenza, unspecified formulation 11/29/2009 completed Not Available [facility] 12/27/2022 03:53:34 influenza, unspecified formulation 12/11/2007 completed Not Available [facility] 12/27/2022 03:53:34 influenza, unspecified formulation 12/11/2011 completed Not Available [facility] 12/27/2022 03:53:34 influenza, unspecified formulation 12/28/2021 completed Not Available [facility] 12/27/2022 03:53:34 influenza, unspecified formulation 01/02/2006 completed Not Available [facility] 12/27/2022 03:53:34 influenza, unspecified formulation 01/07/2003 completed Not Available [facility] 12/27/2022 03:53:34 influenza, unspecified formulation 01/25/2005 completed Not Available [facility] 12/27/2022 03:53:35 influenza, unspecified formulation 01/25/2013 completed Not Available [facility] 12/27/2022 03:53:35 polio, unspecified formulation 03/10/2006 completed Not Available [facility] 12/27/2022 03:53:35 polio, unspecified formulation 09/08/2006 completed Not Available [facility] 12/27/2022 03:53:35 polio, unspecified formulation 02/03/2006 completed Not Available [facility] 12/27/2022 03:53:35 typhoid, unspecified formulation 10/14/2014 completed Not Available [facility] 12/27/2022 03:53:36 typhoid, unspecified formulation 02/03/2006 completed Not Available [facility] 12/27/2022 03:53:36 influenza, unspecified formulation 12/18/2022 completed LINDEN BELL, [facility] 12/31/2022 16:14:04 SARS-COV-2 (COVID-19) vaccine, UNSPECIFIED 12/18/2022 completed LINDEN BELL, [facility] 12/31/2022 16:14:46 Past Encounters Encounter ID Performer Location Encounter Start Date Encounter Closed Date Diagnosis/Indication Diagnosis SNOMED-CT Code Diagnosis ICD10 Code [id number] Zee Mott PA-C [address] [address] 10/08/2023 13:46:51 10/08/2023 15:00:54 Herpesvirus infection 99368863 B00.9 Epigastric pain 65089901 R10.13 Abdominal bloating 77857 9008 R14.0 Hypomagnesemia 887292905 E83.42 Asymptomat ic microscopic hematuria 1058679692 6374044 R31.21 Increased blood pressure 72147347 R03.0 Health Concerns Section Related Observation LastModified by Organization Detai ls LastModified Time None Recorded Concern Status LastModified by Organization Details LastModified Time None Recorded Payers Encounter Date Sequence Insurance Name Policy Number Policy Baez Covered Member ID Baez Member ID Guarantor Name 10/08/2023 1 [place] [employer] Abby Ruffin [id number] Abby Ruffin Notes Date Note Type [...] hemoptysis. She has appt with GI in [place] at unknown time in the future. Zee Mott PA-C [address], [place], [address], [facility]. 10/08/2023 17:46:24 OBGyn Episode No OBEpisode recorded.
--- OUTSIDE RECORDS SUMMARY | 2023-12-17 15:26 | XMS_ITS | Clinical Summary ---
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 10/14/2023 Orders Only Gastroenterology at [place] [id number] Benita Mclean MD Functional dyspepsia 10/13/2023 10:14 AM EDT Anesthesia Event Gastroenterology at [place] [id number] Guilherme Alvarado MD 10/13/2023 10:00 AM EDT - 10/13/2023 10:45 AM EDT Surgery Gastroenterology at [place] [id number] Geovanni Bell MD EGD WITH BIOPSY (WRVU 2.39) 10/13/2023 Orders [place] [address] Benita Mclean MD Functional dyspepsia 10/13/2023 [place] [address] Katharina Martin CMA Request For Record ([facility] - EGD (from 5 or 6 years ago)) 10/11/2023 1:39 PM EDT - 10/13/2023 4:00 PM EDT Hospital Encounter Hematology/Oncolog y Unit Level [address] [place] [address] Karla Faria MD Daniel, Nicholas, [...] 0.6 oz pur e alcohol) [facility] Utilities Answer Date Recorded In the past 12 months has [employer], oil, or water [employer] threatened to shut off services in your [...] any time in the past 12 m [facility], were you homeless or living in a long term (including now)? No 10/13/2023 DH IPV Inpatient [...] Date/Time Associated Diagnosis Comments GIARDIA/CRYPTOSPORID IUM ANTIGENS ([facility]/CGP/APD/NLH) Routine 10/13/2023 3:50 PM EDT ECHO COMPLETE Routine 10/13/2023 12:52 PM EDT Hypertensive urgency SURGICAL PATHOLOGY Routine 10/13/2023 10 :26 AM EDT Upper Gi Endoscopy, Biopsy (45514) 10/13/2023 10:13 AM EDT Wt loss UPPER [...] PM EDT URINALYSIS BEAKER MICROSCPIC REFLEX EXAM ([facility]) STAT 10/11/2023 2:54 PM EDT URINALYSIS MICROSCOPIC WITH REFLEX TO CULTURE STAT 10/11/2023 2:54 PM EDT URINALYSIS WITH REFLEX CULTURE STAT 10/11/2023 2:54 PM EDT EKG 12-LEAD STAT 10/11/2023 2:49 PM EDT from Last 3 Months Results * Giardia/Cryptosporidium Antigens ([facility]/CGP/APD/NLH) (10/13/2023 3:50 PM EDT) Giardia Antigen Negative Negative 12:31 PM EDT [facility] Cryptosporidium Antigen Negative Negative 10/14/2023 12:31 PM EDT [facility] Stool STOOL SPECIMEN / Unknown Non Blood Collection / Unknown 10/13/2023 3:50 PM EDT 10/13/2023 4:41 PM EDT Narrative [facility] - 10/14/2023 12:31 PM EDT Examination for other intestinal parasites requires foreign travel history. Examination for other intestinal parasites requires foreign travel history. Valente Bhatt MD MICROBIOLOGY - GEN ERAL ORDERABLES [facility] [place] [address] * ECHO COMPLETE (10/13/2023 12:52 PM EDT) EF 65 HEARTLAB SYSTEM Anatomical Region Laterality Modality Cardiac Other 10/13/2023 12:1 4 PM EDT Narrative 10/13/2023 1:18 PM [place]T [address] [place] [address] ? Echocardiogram Report Name: NELSY RUFFIN ?Study Date: 10/13/2023 12:14 PMBP: 160/72 mmHg ? Patient Location: L1WD 0118 A : 1935 ? Height: 155 cm ? Account: [id number] Age: 87 yrs ? Weight: 64 kg Gender: Female ?BSA: 1.6 m2 Ordering Physician: MORE OROZCO Performed By: LE Palomares Reason For Study: Hypertensive urgency Exam Location: [facility]. Interpretation Summary 1. 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 Procedure Complete-75602. Satisfactory quality. There is sinus bradycardia. Left [...] Note Eri Patino MD - 10/13/2023 [address] [place] [address] Echocardiogram Report Name: NELSY RUFFIN Study Date: 2:14 PMBP: 160/72 mmHg Patient Location: [address] : 1935 Height: 155 cm Account: [id number] Age: 87 yrs Weight: 64 kg Gender: Female BSA: 1.6 m2 Ordering Physician: MORE OROZCO Performed By: LE Palomares Reason For Study: Hypertensive urgency Exam Location: [facility]. Interpretation Summary 1. 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 Procedure Complete-33099. Satisfactory quality. There is sinus bradycardia. Left [...] Case Report Surgical Pathology Report ? Case: [id number] ? Authorizing Provider: ??Geovanni Bell MD ?Collected: ? 10/13/2023 1026 ? Ordering Location: ? Gastroenterology at [facility] ?? Received: ?10/13/2023 1251 ? Pathologist: ? Judie Ovalle MD ? Specimens: ?? A) - Esophagus, esophagus at 37cm ? B) - Stomach ? C) - Small Bowel, Duodenum ? 10/17/2023 12:27 PM EDT [facility] Final Diagnosis A. Esophagus, esophagus at 37cm Biopsy: Cardia- and fundic-type mucosa with focal intestinal metaplasia, negative for dysplasia (see Discussion). B. Stomach, Biopsy: Gastric fundic and antral gland mucosa with mild chronic nonspecific gastritis. C. Small Bowel, Duodenum, Biopsy: Duodenal mucosa within normal limits, including preserved villous architecture. 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 10/17/2023 12:27 PM [facility] Additional Studies Task ID IHC/Special Stains Result Comments B1-2 H pylori Negative 10/17/2023 12:27 PM [facility] Disclaimer(s) Formalin-fixed, paraffin-embedded tissue sections [...] and other diagnostic tests. 10/17/2023 12:27 PM [facility] Clinical Information A. Esophagus, esophagus at 37cm Rule out Haque's B. Stomach, Rule out Helicobacter pylori C. Small Bowel, Duodenum, Rule out celiac 10/17/2023 12:27 PM [facility] Gross Description A. Esophagus, esophagus [...] 1 cassette labeled C1. 10/17/2023 12:27 PM [facility] Result Note Routine 10/17/2023 12:27 PM EDT [facility] Tissue ESOPHAGEAL STRUCTURE / Unknown 10/13/2023 10:26 AM EDT 10/13/2023 12:51 PM EDT Comment:Pre-op diagnosis: Wt loss Tissue specimen (specimen) STOMACH STRUCTURE / Unknown 10/13/2023 10:28 AM EDT 10/13/2023 12:51 PM EDT Comment:Pre-op diagnosis: Wt loss Tissue specimen (specimen) DUODENAL STRUCTURE / Unknown 10/13/2023 10:28 AM EDT 10/13/2023 12:51 PM EDT Comment:Pre-op diagnosis: Wt loss Geovanni Bell MD PATHOLOGY/CYTOLOGY O DINORA [facility] [place] [address] * UPPER GI ENDOSCOPY (10/13/2023 9:44 AM EDT) UPPER GI ENDOSCOPY [facility] Endoscopy ___ Procedure Date: 10/13/2023 9:44 AM ? Patient Name: Nelsy Ruffin ? Date of : 1935 ? Age: 87 ? Order #: [id number] ? Instrument Name: [id number] ? ___ Procedure: ? Upper GI endoscopy [...] classified as Haque's stage C0-M1 ? per [place] criteria. Biopsied. ? - Normal stomach. Biopsied. [...] 9.50 x10(3)/mc L 10/13/2023 4:30 AM EDT [facility] Red Blood Cell 3.68(L) 4.00 - 5.21 x10(6)/mc L 10/13/2023 4:30 AM EDT [facility] Hemoglobin 11.8 11.7 - 15.5 g/dL 10/13/2023 4:30 AM T [facility] Hematocrit 34.6(L) 35.7 - 45.8 % 10/13/2023 4:30 AM EDT [facility] Mean Cell Volume 94.0 82.6 - 94.4 fL 10/13/2023 4:30 AM T [facility] Mean Cell Hemoglobin 32.1(H) 27.1 - 32.0 pg 10/13/2023 4:30 AM [facility] Mean Cell Hemoglobin Concentration 34.1 31.7 - 35.0 g/dL 10/13/2023 4:30 AM EDT [facility] Platelet 240 145 - 357 x10(3)/mc L 10/13/2023 4:30 AM [facility] Mean Platelet Volume 10.3 7.6 - 12.9 fL 10/13/2023 4:30 AM T [facility] RDW Standard Deviation 43.8 37.0 - 46.0 fL 10/13/2023 4:30 AM [facility] RDW coefficient of variation 12.8 11.5 - 14.1 % 10/13/2023 4:30 AM EDT [facility] NRBC% auto 0.0 % 10/13[facility]2023 4:[facility] NRBC Absolute 0.00 0.00 - 0.00 x10(3)/mc L 10/13/2023 4:30 AM [facility] Neutrophil % 65.4 % 10/13/2023 4:30 AM [facility] Neutrophil Absolute (ANC) - Automated 4.13 1.70 - 6.10 x10(3)/mc L 10/13/2023 4:30 AM [facility] Lymph % 26.1 % 10/13/2023 4:30 AM [facility] Lymph Absolute 1.65 0.90 - 3.20 x10(3)/mc L 10/13/2023 4:30 AM [facility] Monocyte % 6.2 % 10/13/2023 4:30 AM [facility] Monocyte Absolute 0.39 0.30 - 0.90 x10(3)/mc L 10/13/2023 4:30 AM [facility] Eos % 1.6 % 10/13/2023 4:30 AM [facility] Eos Absolute 0.10 0.00 - 0.40 x10(3)/mc L 10/13/2023 4:30 AM [facility] Basophil % 0.5 % 10/13/2023 4:30 AM [facility] Baso Absolute 0.03 0.00 - 0.10 x10(3)/mc L 10/13/2023 4:30 AM [facility] Immature Gran % 0.2 % 4:30 AM [facility] Immature Gran Absolute 0.01 0.00 - 0.04 x10(3)/mc L 10/13/2023 4:30 AM [facility] Blood VENOUS BLOOD SPECIMEN / Unknown IP Care Team Draw / Unknown 10/13/2023 4:07 AM EDT 10/13/2023 4:23 AM EDT More Orozco MD HEMATOLOGY ORDERABLE S Performing Organization Address City/[facility]/ZIP Co de Phone Number [facility] [place] [address] * Magnesium (10/13/2023 4:07 AM EDT) Only the most recent of2 resultswithin the time period is included. Pathologist [facility] Magnesium 0.76 0.69 - 1.07 mMol/L 10/13/2023 4:55 AM EDT [facility] Blood VENOUS BLOOD SPECIMEN / Unknown IP Care Team Draw / Unknown 10/13/2023 4:07 AM EDT 10/13/2023 4:23 AM EDT More Orozco MD CHEMISTRY ORDERABLES Performing Organization Address [facility] Co de Phone Number [facility] [place] [address] * (ABNORMAL) Basic Metabolic Panel (10/13/2023 4:07 AM EDT) Only the most recent of3 resultswithin the time period is included. [facility] Glucose 115 65 - 199 mg/dL 10/13/2023 4:55 AM EDT [facility] Comment:Glucose Concentratio n >=200 mg/dL plus symptoms is consistent with Diabetes Mellitus. Blood Urea Nitrogen 10 8 - 18 mg/dL 10/13/2023 4:55 AM EDT [facility] Creatinine 0.95 0.70 - 1.20 mg/dL 10/13/2023 4:55 AM EDT [facility] Sodium 142 135 - 145 mMol/L 10/13/2023 4:55 AM EDT [facility] Potassium 3.2(L) 3.5 - 5.0 mMol/L 10/13/2023 4:55 AM EDT [facility] Chloride 109(H) 98 - 107 mMol/L 10/13/2023 4:55 AM EDT [facility] Carbon Dioxide 20(L) 22 - 31 mMol/L 10/13/2023 4:55 AM EDT [facility] Anion Gap 13 5 - 15 mMol/L 10/13/2023 4:55 AM EDT [facility] Calcium 9.3 8.5 - 10.5 mg/dL 10/13/2023 4:55 AM EDT [facility] Est Glomerular Filtration Rate - Female 58 mL/min/1. 73 m?? 10/13/2023 4:55 AM EDT [facility] Comment: This patient's estimated GFR [...] AM EDT More Orozco MD CHEMISTRY ORDERABLES [facility] [place] [address] * Scan Doc: Telemetry Strips (10/12/2023 8:33 PM EDT) Only the most recent of3 resultswithin the time period is included. Narrative 10/12/2023 8:33 PM EDT Ordered by an unspecified provider. Scanning Provider MEDIA MGR SCAN EXT O RDR/RSLT * Phosphorus (10/12/2023 5:09 AM EDT) Phosphorus 3.4 2.5 - 4.5 mg/dL 10/12/2023 5:46 AM EDT [facility] Blood VENOUS BLOOD SPECIMEN / Unknown IP Care Team Draw / Unknown 10/12/2023 5:09 AM EDT 10/12/2023 5:17 AM EDT More Orozco MD CHEMISTRY ORDERABLES [facility] [place] [address] * (ABNORMAL) Hepatic Function Panel (10/12/2023 5:09 AM EDT) Only the most recent of2 resultswithin the time period is included. Albumin 3.9 3.2 - 5.2 g/dL 10/12/2023 5:46 AM EDT [facility] Aspartate Aminotransferase 15 <=30 unit/L 10/12/2023 5:46 AM EDT [facility] Alanine Aminotransferase 14 0 - 30 unit/L 10/12/2023 5:46 AM EDT [facility] Alkaline Phosphatase 46 35 - 105 unit/L 10/12/2023 5:46 AM EDT [facility] Bilirubin, Total 1.4(H) <=1.3 mg/dL 10/12/2023 5:46 AM EDT [facility] Bilirubin, Direct 0.2 0.0 - 0.3 mg/dL 10/12/2023 5:46 AM EDT [facility] Protein, Total 6.3 6.1 - 8.0 g/dL 10/12/2023 5:46 AM EDT [facility] Blood VENOUS BLOOD SPECIMEN / Unknown IP Care Team Draw / Unknown 10/12/2023 5:09 AM EDT 10/12/2023 5:17 AM EDT More Orozco MD CHEMISTRY ORDERABLES [facility] [place] [address] * (ABNORMAL) Troponin-T, Joseph Sensitivity 3 Hour (10/11/2023 6:17 PM EDT) Troponin-T, High Sensitivity 15(H) <=14 ng/L 10/11/2023 6:52 PM EDT [facility] Comment: This patient's troponin T [...] troponin value can be found in the [facility] Test Catalog Troponin - https://[facility] servicesCatalystPharma.testcatalog.org/catalogs/565/files/15639 Reference: Fourth [place] Definition of Myocardial Infarction. Journal of the [place] College of Cardiology 2018;72:8452-4498 Troponin-T, HS 3 hr delta 2 ng/L 10/11/2023 6:52 PM EDT [facility] Comment:The 3 hour Troponin T delta value is the absolute difference between the Troponin T concentrations of the initial and subsequent sample collected between 2 h: 45 min and 6 h following the initial collection Blood VENOUS BLOOD SPECIMEN / Unknown IP Care Team Draw / Unknown 10/11/2023 6:17 PM EDT 10/11/2023 6:23 PM EDT Karla Faria MD CHEMISTRY ORDERABLES [facility] [place] [address] * TSH (10/11/2023 6:17 PM EDT) Thyroid Stimulating Hormone 1.63 0.27 - 4.20 mcIU/mL 10/12/2023 1:15 AM EDT [facility] Comment: Reference Interval (mcIU/mL): ?? Females: ? First Trimester: 0.23-3.88 ? Second Trimester: 0.22-3.90 ? Third Trimester: 0.44-4.66 Blood VENOUS BLOOD SPECIMEN / Unknown IP Care Team Draw / Unknown 10/11/2023 6:17 PM EDT 10/11/2023 6:23 PM EDT More Orozco MD CHEMISTRY ORDERABLES Performing Organization Address City/[facility]/ZIP Co de Phone Number [facility] [place] [address] * Lipase (10/11/2023 6:17 PM EDT) Only the most recent of2 resultswithin the time period is included. Lipase 29 0 - 60 unit/L 10/12/2023 1:15 AM EDT [facility] Blood VENOUS BLOOD SPECIMEN / Unknown IP Care Team Draw / Unknown 10/11/2023 6:17 PM EDT 10/11/2023 6:23 PM EDT More Orozco MD CHEMISTRY ORDERABLES Performing Organization Address City/[facility]/ZIP Co de Phone Number [facility] [place] [address] * (ABNORMAL) Troponin-T, High Sensitivity 1 Hour (10/11/2023 3:59 PM EDT) Troponin-T, High Sensitivity 16(H) <=14 ng/L 10/11/2023 4:32 PM EDT [facility] Comment: This patient's troponin T [...] troponin value can be found in the [facility] Test Catalog Troponin - https://[facility] servicesCatalystPharma.testcatalog.org/catalogs/565/files/21963 Reference: Fourth [place] Definition of Myocardial Infarction. Journal of the [place] College of Cardiology 2018;72:1451-9913 Troponin-T, HS 1 hr delta 1 ng/L 10/11/2023 4:32 PM EDT [facility] Comment:The 1 hour Troponin T delta value is the absolute difference between the Troponin T concentrations of the initial and subsequent sample collected between 45 - 120 minutes following the initial collection. Blood VENOUS BLOOD SPECIMEN / Unknown Venipuncture / Unknown 10/11/2023 3:59 PM EDT 10/11/2023 4:05 PM EDT Karla Faria MD CHEMISTRY ORDERABLES Performing Organization Address City/State/[facility] Co de Phone Number [facility] [place] [address] * CT Angiogram Chest Abdomen Pelvis w Contrast (10/11/2023 3:44 PM EDT) WORKSTATION ID [id number] RAD Anatomical Region Laterality Modality Abdomen, Chest [...] who have questions please contact the health acute care surgeon that requested your imaging first. ? Electronically signed by: ERLIN SAINI MD, [facility] ([phone]), at 10/11/2023 4:11 PM Narrative 10/11/2023 4:11 [...] and of normal caliber. No dissection. Scattered [id number]-[id number] atheromatous plaque is noted. Celiac: Patent. No [...] and of normal caliber. No dissection. Scattered dxdz-ol-dotakfdu atheromatous plaque is noted. Celiac: Patent. No [...] patients who have questions please contactthe health acute care surgeon that requested your imaging first. Electronically signed by: ERLIN SAINI MD, [facility]([phone]), at 10/11/2023 4:11 PM Karla Faria MD IMG CT ORDERABLES * (ABNORMAL) Troponin-T, High Sensitivity (10/11/2023 3:01 PM EDT) [facility] Troponin-T, High Sensitivity Initial 17(H) <=14 ng/L 10/11/2023 3:53 PM EDT [facility] Comment: This patient's troponin T [...] troponin value can be found in the [facility] Test Catalog Troponin - https://one-.testcatalog.org/catalogs/565/files/75987 Reference: Fourth [place] Definition of Myocardial Infarction. Journal of the [place] College of Cardiology 2018;72:3189-3798 Blood VENOUS BLOOD SPECIMEN / Unknown Venipuncture / Unknown 10/11/2023 3:01 PM EDT 10/11/2023 3:09 PM EDT Karla Faria MD CHEMISTRY ORDERABLES Performing Organization Address City/State/[facility] Co de Phone Number [facility] [place] [address] * (ABNORMAL) Hemoglobin A1c (10/11/2023 3:01 PM EDT) Hemoglobin A1c 6.1(H) 4.3 - 5.6 % 10/12/2023 1:06 AM EDT [facility] Comment: Per ADA guidelines, without [...] red blood cell turnover may not be new accounts banking representative of glycemic control. Reference Interval: 4.3 - 5.6% 5.7 - 6.4%: Consistent with prediabetes >=6.5%: Consistent with diagnosis of diabetes mellitus Estimated Average Glucose 10/12/2023 1:06 AM EDT [facility] Comment:Not Calculated. Blood VENOUS BLOOD SPECIMEN / Unknown Venipuncture / Unknown 10/11/2023 3:01 PM EDT 10/11/2023 3:09 PM EDT Narrative [facility] - 10/12/2023 1:06 AM EDT Estimated average glucose (eAG) is calculated from the equation described in: Malvin HERNANDEZ, Jamal J, Janina R, et al. ??Translating the A1C assay into estimated average glucose values. ??Diabetes Care 2008:31(8):1097-3108. Additional resources are available on the ADA website (diabetes.org). More Orozco MD CHEMISTRY ORDERABLES Performing Organization Address City/State/[facility] Co de Phone Number [facility] [place] [address] * (ABNORMAL) Urinalysis Microscopic Reflex to Culture (10/11/2023 2:54 PM EDT) Bacteria, Urine None None /HPF 3:52 PM EDT [facility] RBC, Urine 5(H) 0 - 4 /HPF 10/11/2023 3:52 PM EDT [facility] WBC, Urine 0 0 - 5 /HPF 10/11/2023 3:52 PM EDT [facility] Squamous Epithelial Cells, Urine 1 <5 /HPF 10/11/2023 3:52 PM EDT [facility] Hyaline Casts, Urine 0 0 - 2 /LPF 10/11/2023 3:52 PM EDT [facility] Comment 10/11/2023 3:52 PM EDT [facility] Comment:Interpret results wi th caution, microscopic results are from a suboptimal specimen. Urine URINE SPECIMEN OBTAINED BY CLEAN CATCH PROCEDURE / Unknown Non Blood Collection / Unknown 10/11/2023 2:54 PM EDT 10/11/2023 3:09 PM EDT Karla Faria MD URINE ORDERABLES Performing Organization Address [facility] Co de Phone Number [facility] [place] [address] * Urinalysis Microscopic with Reflex to Culture (10/11/2023 2:54 PM EDT) Urine URINE SPECIMEN OBTAINED BY CLEAN CATCH PROCEDURE / Unknown Non Blood Collection / Unknown 10/11/2023 2:54 PM EDT 10/11/2023 3:09 PM EDT Karla Faria MD URINE ORDERABLES Performing Organization Address City/[facility]/ZIP Co de Phone Number [facility] [place] [address] * (ABNORMAL) Urinalysis with reflex Culture (10/11/2023 2:54 PM EDT) Glucose, Urine Dipstick Negative Negative 10/11/2023 3:52 PM EDT [facility] Protein, Urine Dipstick Negative Negative 10/11/2023 3:52 PM EDT [facility] Bilirubin, Urine Dipstick Negative Negative 10/11/2023 3:52 PM EDT [facility] Comment:Clinical correlation required for positive Urine Bilirubin results as false positive may occur with some drugs and drug related products. If a false positive is suspected a serum total bilirubin should be considered if clinically indicated. Urobilinogen, Urine Dipstick Normal Normal, 0.2 mg/dL, 1.0 mg/dL 10/11/2023 3:52 PM EDT [facility] pH, Urine (dipstick) 7.0 5.0 - 8.0 10/11/2023 3:52 PM EDT [facility] Blood, Urine Dipstick Moderate(A) Negative 10/11/2023 3:52 PM EDT [facility] Ketone, Urine Dipstick Negative Negative 10/11/2023 3:52 PM EDT [facility] Nitrite, Urine Dipstick Negative Negative 10/11/2023 3:52 PM T [facility] Leukocytes, Urine Dipstick Negative Negative 10/11/2023 3:52 PM [facility] Specific Elliott Urine Automated 1.007 1.005 - 1.030 10/11/2023 3:52 PM EDT [facility] Appearance, Urine Dipstick Clear Clear 10/11/2023 3:52 PM [facility] Color, Urine Dipstick Yellow Yellow, Dark Yellow 10/11/2023 3:52 PM [facility] Urine URINE SPECIMEN OBTAINED BY CLEAN CATCH PROCEDURE / Unknown Non Blood Collection / Unknown 10/11/2023 2:54 PM EDT 10/11/2023 3:09 PM EDT Karla Faria MD URINE ORDERABLES [facility] [place] [address] * EKG 12 Lead (10/11/2023 2:49 PM EDT) Ventricular rate 53 BPM MUSE SYSTEM Atrial Rate 53 BPM MUSE SYSTEM P-R Interval 176 ms MUSE SYSTEM QRS Duration 70 ms MUSE SYSTEM Q-T Interval 428 ms MUSE SYSTEM QTC Calculated (Bezet) 401 ms MUSE SYSTEM Calculated P Maxwell 65 degrees MUSE SYSTEM Calculated R Maxwell 6 degrees MUSE SYSTEM Calculated T Maxwell 51 degrees MUSE SYSTEM INTERPRETATION Sinus bradycardia [...] is based on Patients wishes. Care Teams Auto Brake Technician Relationship Specialty Start Date End Date Candie Skaggs MD [address] [place] [address] PCP - General Family Medicine 03/19/19
--- OUTSIDE RECORDS SUMMARY | 2023-12-17 15:26 | XMS_ITS | Encounter Summary ---
Author Organization [facility] [place] [address] Care Team Providers Care Combination Saw Operator Name Role Phone Candie Skaggs MD Primary Care Provider [phone] Reason for Visit * Auth/Cert (Routine) Specialty Diagnoses / Procedures Referred By Contbrendan t Referred To Contact Diagnoses Upper abdominal pain Hypertensive urgency More Barlow MD [facility] [place] [address] [facility] Referral ID Status Reason Start Date Expiration Date Visits Re quested Visits Authorized [id number] 1 1 Encounter Details Date Type Department Care Team (Late st Contact Info) Description 10/13/2023 10:14 AM EDT Anesthesia [place] [address] Guilherme Alvarado MD [facility] [place] [address] Anesthesia Record Procedure Summary Procedure Name Responsible [...] Type Details Placement Removal PIV 10/11/23; 1400; isat-bsh-tfspdl catheter system; 20 gauge; median cubital vein [...] drink = 0.6 oz pur e alcohol) [facility] Utilities Answer Date Recorded In the past 12 months has th e electric, gas, oil, or water [employer] threatened to shut off services in your [...] any time in the past 12 m [facility], were you homeless or living in a detention (including now)? No 10/13/2023 DH IPV Inpatient [...] Procedure Summary Date: 10/13/23 Room / Location: [facility] ENDO 3 / [facility] ENDOSCOPY Anesthesia Start: 1014 Anesthesia Stop: 103 Procedure: EGD WITH BIOPSY (WRVU 2.39) (Trunk) Diagnosis: (Wt loss) Surgeons: Geovanni Bell MD Responsible Provider: Guilherme Alvarado MD Anesthesia Type: MAC ASA Status: 3 All Anesthesia Providers: Anesthesiologist: Guilherme Alvarado MD SALES REPRESENTATIVE BUSINESS COURSES: Roslyn Gaona CRNA Vitals Value Taken Time BP 142/77 10/13/23 1100 Temp Pulse Resp 16 10/13/23 1040 SpO2 95 % 10/13/23 1109 Pain Level 0 10/13/23 1040 Vitals shown include unfiled device data. Patient Location: PACU/[facility] Level of Consciousness: Awake and Alert [...] y.o. female. Procedure(s): EGD, UPPER GI ENDOSCOPY ([facility] 2.[facility]) Patient Active Problem List Diagnosis Date [...] injury, blindness, adverse drug reactions, awareness, stroke, [place], , among others. All questions answered to [...] consented to blood products. Plan discussed with SALES REPRESENTATIVE BUSINESS COURSES. Anesthesia Screening documented in this encounter Plan [...] mg documented in this encounter Care Teams Combination Saw Operator Relationship Specialty Start Date End Date Candie Skaggs MD [address] [place] [address] PCP - General Family Medicine 03/19/19 documented as of this encounter
--- OUTSIDE RECORDS SUMMARY | 2023-12-17 15:26 | XMS_ITS | Encounter Summary ---
Author Organization [facility] [place] [address] Care Team Providers Care Communications Department Chairperson Name Role Phone Candie Skaggs MD Primary Care Provider [phone] Reason for Referral * Consultation (Routine) - Closed Specialty Diagnoses / Procedures Referred By Ko duarte Referred To Contact Gastroenterology Diagnoses Functional dyspepsia Benita Mclean MD [facility] [place] [address] [facility] [address] [address] Referral ID Status Reason Start Date Expiration Date V isits Requested Visits Authorized [id number] Closed Consult, Test & Treat 10/13/2023 10/12/2024 1 1 Encounter Details Date Type Department Care Team (Late st Contact Info) Description 10/13/2023 Orders [place] [address] Benita Mclean MD [facility] [place] [address] Functional dyspepsia Social History Tobacco Use Types Packs/Day Years Used Date Smoking Tobacco: Former Cigarettes 0.5 3 Smokeless Tobacco: Former Quit: 06/22/1979 Alcohol Use Standard Drinks/Week Comments Yes 2 (1 standard drink = 0.6 oz pur e alcohol) [facility] Utilities Answer Date Recorded In the past [...] in a snf (including now)? No 10/13/2023 IPV Inpatient Questions [...] stomach documented in this encounter Care Teams Communications Department Chairperson Relationship Specialty Start Date End Date Candie Skaggs MD [address] [place] [address] PCP - General Family Medicine 03/19/19 documented as of this encounter
--- OUTSIDE RECORDS SUMMARY | 2023-12-17 15:26 | XMS_ITS | Encounter Summary ---
Author Organization [facility] [place] [address] Care Team Providers Care Bank Vault Custodian Name Role Phone Candie Skaggs MD Primary Care Provider [phone] Reason for Visit * Consultation (Routine) - Closed Specialty Diagnoses / Procedures Referred By Ko duarte Referred To Contact Gastroenterology Diagnoses Functional dyspepsia Benita Mclean MD [facility] [place] [address] [facility] [address] [address] Referral ID Status Reason Start Date Expiration Date V isits Requested Visits Authorized [id number] Closed Consult, Test & Treat 10/13/2023 10/12/2024 1 1 Encounter Details Date Type Department Care Team (Latest Contact Info) Description 10/27/2023 10:00 AM EDT TH Visit (TeleHealth) [place] [address] Olga Melgar APRN [facility] [place] [address] Burping; Gastroesophageal reflux disease, unspecified [...] any time in the past 12 m [facility], were you homeless or living in a long term (including now)? No 10/13/2023 IPV Inpatient Questions [...] disease) K21.9 Hyperlipidemia E78.5 Squamous cell carcinoma [id number] History of SCC (squamous cell carcinoma) of [...] includes Appendectomy and Upper Gi Endoscopy, Biopsy (50097) (N/A, 10/13/2023). Family History: family history is [...] who have questions please contact the health laboratory animal care veterinarian that requested your imaging first. Electronically signed by: SEVERO SAINI MD, [facility] ([phone]), at 10/11/2023 4:11 PM 10/13/2023 EGD - - Esophagogastric landmarks identified. 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 Biopsied. - Normal stomach. Biopsied. - [...] the recommendationsabove. The patient was located in [place] at the time of this visit. Total time spent on encounter today: 60 minutes Time spent reviewing records prior to this encounter on day of appointment: 5 minutes Time spent during encounter with patient including counselin minutes Time spent documenting encounter after office visit on day of appointment: 5 minutes Olga Melgar APRN [facility] 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
--- OUTSIDE RECORDS SUMMARY | 2023-12-17 15:26 | XMS_ITS ---
Author Organization [facility] Address [address] [address] Care Team Providers Care Legal Researcher Name Role Phone Roxanna Mcclain [phone] REASON FOR VISIT . Encounters Encounter Location Date Provider Diagnosis [address] [place] [phone] 09/30/2023 Roxanna Mcclain Plan Of Treatment No Information Progress Notes * Abby SHELTONDOB:1935 (88 yo F)Acc No.[id number]:09/30/2023 Patient:?Abby SHELTON Provider:?Roxanna Mcclain :1935???Age:87 Y???Sex:Female D ate:09/30/2023 Phone: Address:-[address] Subjective: * Chief Complaints: * ???1. .. * Medical History:? Objective: * Vitals:? Assessment: Plan: * Treatment: * Billing Information: * Visit Code:? * Procedure Codes:? * Electronic signature of Phu Mcclain M.D. on 12/17/2023 at 03:25 PM EDT Sign off status: Pending * Provider:?Roxanna Mcclain Date:?09/30/2023 Generated for Isabella graham/Nikky/eTransmitting on:?12/17/2023 03:25 PM EDT
--- OUTSIDE RECORDS SUMMARY | 2023-12-17 15:26 | XMS_ITS | Patient Health Record ---
Author Organization [facility] Address [address] [place] [phone] Care Team Providers Care Utilization Management Rn Name Role Phone Roxanna Mcclain [phone] Reason For Referral No Information Plan Of Treatment No Information
--- OUTSIDE RECORDS SUMMARY | 2023-12-17 15:26 | XMS_ITS | Encounter Summary ---
Author Organization [facility] [place] [address] Care Team Providers Care Gate Technician Name Role Phone Candie Skaggs MD Primary Care Provider [phone] Reason for Visit * Reason Onset Date Comments Request For Record 10/13/2023 [facility] - EGD (from 5 or 6 years ago) Encounter Details Date Type Department Care Team (Late st Contact Info) Description 10/13/2023 [place] [phone] Katharina Martin, TAMI Request For Record ([facility] - EGD (from 5 or 6 years ago)) Social History Tobacco Use Types Packs/Day Years Used Date Smoking Tobacco: Former Cigarettes 0.5 3 Smokeless Tobacco: Former Quit: 06/22/1979 Alcohol Use Standard Drinks/Week Comments Yes 2 (1 standard drink = 0.6 oz pur e alcohol) [facility] Utilities Answer Date Recorded In [...] Martin CMA - 10/13/2023 8:31 AM EDT [place], [place] [address] To whom it may concern: THIS IS [...] Ruffin Patient : 1935 Thank you, Katharina Bridge Inspector [facility] [place] [address] documented in this encounter Plan of Treatment Not on file documented as of this encounter Visit Diagnoses Not on filedocumented in this encounter Care Teams Gate Technician Relationship Specialty Start Date End Date Candie Skaggs MD [address] [place] [address] PCP - General Family Medicine 03/19/19 documented as of this encounter
--- OUTSIDE RECORDS SUMMARY | 2023-12-17 15:27 | XMS_ITS | Encounter Summary ---
Author Organization [facility] [place] [address] Care Team Providers Care Buckle Wire Inserter Name Role Phone Candie Skaggs MD Primary Care Provider [phone] Reason for Visit * Consultation (Routine) - Authorized Specialty Diagnoses / Procedures Referred By Ko duarte Referred To Contact Dermatology Diagnoses Dysplastic nevus of skin Candie Skaggs MD [address] [place] [address] [facility] [address] [place] [address] Referral ID Status Reason Start Date Expiration Date Visits Requested Visits Authorized [id number] Authorized Consult, Test & Treat PCP Updated and/or Approved 3 01/01/2024 6 6 Encounter Details Date Type Department Care Team (Late st Contact Info) Description 01/24/2023 10:30 AM EST Office Visit Dermatology at [facility] [address] [place] [address] Garfield Samuels MD [facility] [place] [address] Neoplasm of unspecified behavior of [...] Light (or IPL) unit made by Evan (StarluTaste Filter) and occasionally use a separate alexandrite or [...] N/A RTC: pending path []Note routed to service secretary []Recall placed in scheduling system []Appointment scheduled at checkout Scribe attestation: Jennifer Miller RN has performed the documentation for this encounter in the presence of and acting as a scribe for Garfield Samuels MD. I performed the above scribed service and agree with the accuracy of the documentation in this encounter. Reviewed and signed by: Garfield Samuels MD Dermatology [facility] * Garfield Samuels MD - 01/24/2023 10:30 AM EST Biopsy results: Consistent with Lentigo -benign pigmented lesion -no further intervention required Seen and reviewed by: Garfield Samuels MD Staff Microbiology Quality Control Technician Department of Dermatology documented in this [...] AM EST 01/24/2023 10:45 AM EST Narrative [facility] - 01/24/2023 10:45 AM EST Specimen requisition ordered. ??Separate Pathology report to follow Garfield Samuels MD PATHOLOGY/CYTOLOGY O [facility] [place] [address] * Surgical Pathology Report (01/24/2023 10:44 AM EST) Final Diagnosis [id number] ? Location: [facility] The signing pathologist has (i) examined the relevant preparation(s) for the specimen(s) and (ii) rendered or confirmed the diagnosis(es). . ?Surgical Pathology DIAGNOSIS L eft cheek, skin shave biopsy: - ??Basal layer hyperpigmentation overlying scattered melanophages, consistent with lentigo Electronically signed by: ?Troy SMITH, PhD, [facility] Verified: ??01/31/2023 11:12 ??Dermatopathologist Performed at: ??-[facility] Dept. of Pathology, [place] [address] Start Up Specialist: Ly Goodrich MD, FCAP, ??CLIA Certificate: [id number] SPECIMEN(S) SUBMITTED A - left cheek, skin [...] EST Garfield Samuels MD PATHOLOGY/CYTOLOGY O RDERABLES [facility] [place] [id number] [facility] [place] [address] documented in this encounter Visit Diagnoses Diagnosis Neoplasm of unspecified behavior of bone, soft tissue, and skin Seborrheic keratosis Other seborrheic keratosis Lentigines Other dyschromia Dermatitis Contact dermatitis and other eczema, due to unspecified cause documented in this encounter Care Teams Buckle Wire Inserter Relationship Specialty Start Date End Date Candie Skaggs MD [address] [place] [address] PCP - General Family Medicine 03/19/19 documented as of this encounter
--- OUTSIDE RECORDS SUMMARY | 2023-12-17 15:27 | XMS_ITS | Encounter Summary ---
Author Organization [facility] [place] [address] Care Team Providers Care Clinical Field Specialist Name Role Phone Kumar Schultz MD Primary Care Provider [phone] Reason for Referral * Consultation (Routine) - Denied Specialty Diagnoses / Procedures Referred By Contac t Referred To Contact Nutrition / Internal Medicine Diagnoses Upper abdominal pain [place] [address] [address] Referral ID Status Reason Start Date Expiration Date V isits Requested Visits Authorized [id number] Denied Consult, Test & Treat 10/13/2023 10/12/2024 1 0 Reason for Visit * Reason Comments Abdominal Pain Fatigue * Auth/Cert (Routine) Specialty Diagnoses / Procedures Referred By Contac t Referred To Contact Diagnoses Upper abdominal pain Hypertensive urgency [place] [address] [facility] Referral ID Status Reason Start Date Expiration Date Visits Re quested Visits Authorized [id number] 1 1 Encounter Details Date Type Department Care Team (Latest Contact Info) Description 10/11/2023 1:39 PM EDT - 10/13/2023 4:00 PM EDT Hospital Encounter Hematology/Oncology Unit Level 1 [place] [address] Karla Faria MD [facility] EMERGENC[facility] [place] [address] Phani Garcia DO [facility] EMERGENC[facility] [place] [address] [place] [address] [place] [address] Upper abdominal pain; Hypertensive urgency Discharge Disposition: Home Social History Tobacco Use Types Packs/Day Years Used Date Smoking Tobacco: Former Cigarettes 0.5 3 Smokeless Tobacco: Former Quit: 06/22/1979 Alcohol Use Standard Drinks/Week Comments Yes 2 (1 standard drink = 0.6 oz pur e alcohol) [facility] Utilities Answer Date Recorded In the past 12 months has e [employer], gas, oil, or water [employer] threatened to shut off services in your [...] Nelsy Ruffin Patient Age: 87 y.o. Language: Bermudian Race: White Ethnicity: Not nor Admit date: [...] please contact your inpatient physician through the [facility] Laundry Presser . Issues afterhours and on weekends will [...] found to have hypertensive emergency, admitted to [facility] for further management. CT [...] 10/11/2023 3:44 PM) Result Value WORKSTATION ID [id number] Impression 1. No aortic dissection or acute [...] who have questions please contact the health child care lead teacher that requested your imaging first. 10/12 Impression: - Esophagogastric landmarks identified. 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 Biopsied. - Normal stomach. Biopsied. - [...] Covid-19 Vaccine 12/12/2020 Moderna Covid-19 Monovalent 12Yr+ (Router Machine Operator 100mcg) 04/27/2021 Pneumococcal Polysaccharide (Pneumovax 23) 07/15/2012 TD Adult 02/03/2006 Tdap 07/15/2012 Typhoid Live, Oral 02/03/2006, 10/14/2014 Typhoid, VICP 04/15/2022 Zoster (Zostavax) LIVE 05/08/2009 Discharge Medications: Your Medications New Medications Dose Details amLODIPine 5 mg tablet Commonly known as: Norvasc Take 1 tablet by mouth daily. 5 mg Quantity: 90 tablet Refills: 3 khpwinntj-aomsjhutj-ik-mag-sim [id number] mg/30 mL Suspension Take 5 mLs by [...] Your Primary Care Provider: Kumar Schultz MD [phone] For questions regarding this document or issues relating to this hospitalization on the Medical Service, please contact your inpatient physician through the [facility] Laundry Presser . Issues afterhours and on weekends will [...] the day after the procedure, use an ojks-chb-ublfxmh spray to numb your throat. Sucking on [...] occurs, please contact your Doctor. Please call [phone] before 8pm Mon-Fri with problems, questions or concerns. If you call after 8pm or on weekends, call the Hospital at [phone] and ask to speak to the Telecommunications Support acid conditioning worker and the slabbing machine operator will contact that person for you. When should you call for help? Call [phone] anytime you think you may need emergency [...] any problems. Where can you learn more? [facility] View your After Visit Summary and more online at [email or web address] If you would like to provide feedback [...] cost to you. Content Version: 12.2 ?? 3576-4125 [employer]. Care instructions adapted under license by [facility]. If you have questions about a medical condition or this instruction, always ask your healthcare professional. [employer] disclaims any warranty or liability for your [...] the day after the procedure, use an dvfl-aop-tlsbect spray to numb your throat. Sucking on [...] occurs, please contact your Doctor. Please call [phone] before 8pm Mon-Fri with problems, questions or concerns. If you call after 8pm or on weekends, call the Hospital at [phone] and ask to speak to the Telecommunications Support acid conditioning worker and the slabbing machine operator will contact that person for you. When should you call for help? Call [phone] anytime you think you may need emergency [...] any problems. Where can you learn more? [facility] View your After Visit Summary and more online at [email or web address] If you would like to provide feedback about your hospital experience, please call the Office of Patient and Family Relations at . If you have received this After Visit Summary in error, please immediately return it in person to the department, or notify the [facility] Privacy Office by calling toll free at between the hours of 8AM and 5PM to arrange for our retrieval of the documents at no cost to you. Content Version: 12.2 ?? 3805-2130 [employer]. Care instructions adapted under license by [facility]. If you have questions about a medical condition or this instruction, always ask your healthcare professional. [employer] disclaims any warranty or liability for your [...] Discharge Instructions * Discharge Instructions* Katharina Martin, [facility] - 10/11/2023 7:55 PM EDT Upper [...] the day after the procedure, use an lwtx-eul-amuufpt spray to numb your throat. Sucking on [...] occurs, please contact your Doctor. Please call [phone] before 8pm Mon-Fri with problems, questions or concerns. If you call after 8pm or on weekends, call the Hospital at [phone] and ask to speak to the Telecommunications Support acid conditioning worker and the slabbing machine operator will contact that person for you. When should you call for help? Call [phone] anytime you think you may need emergency [...] After Visit Summary and more online at [email or web address] If you would like to provide feedback [...] cost to you. Content Version: 12.2 ?? 1776-2610 [employer]. Care instructions adapted under license by [facility]. If you have questions about a medical condition or this instruction, always ask your healthcare professional. [employer] disclaims any warranty or liability for your [...] the day after the procedure, use an ylbk-qwd-ofknaer spray to numb your throat. Sucking on [...] occurs, please contact your Doctor. Please call [phone] before 8pm Mon-Fri with problems, questions or concerns. If you call after 8pm or on weekends, call the Hospital at [phone] and ask to speak to the Telecommunications Support acid conditioning worker and the slabbing machine operator will contact that person for you. When should you call for help? Call [phone] anytime you think you may need emergency [...] any problems. Where can you learn more? [facility] View your After Visit Summary and more online at [email or web address] If you would like to provide feedback [...] cost to you. Content Version: 12.2 ?? 2182-0618 [employer]. Care instructions adapted under license by [facility]. If you have questions about a medical condition or this instruction, always ask your healthcare professional. [employer] disclaims any warranty or liability for your [...] Your Primary Care Provider: Kumar Schultz MD [phone] For questions regarding this document or issues relating to this hospitalization on the Medical Service, please contact your inpatient physician through the [facility] Laundry Presser . Issues afterhours and on weekends will [...] Continuous Scheduled amLODIPine 5 mg Oral Daily gssfogiui-rmchgarjl-mi-mag-sim 5 mL Oral TID rivaroxaban 10 mg [...] of this encounter: 64.4 kg (142 lb). Maud Body Weight (IBW) (kg): 47.73 Wt Readings [...] interview: 10/12: Nutrition consulted for MST evaluation, bid writer met with Adriana and her at bedside. Adriana reports epigastric pain and nausea, relying on soup and toast for intake lately. She reports 8# weight loss in recent weeks, though unable to quantify UBW. Unsure what is causing epigastric pain, awaiting EGD results. Offered Ensure to supplement intake, trial sent. Nelsy notes GERD and avoiding spicy foods, tomato sauces, and other foods. Shirring Machine Operator also suggested follow up with outpatientRD (consider GI if followed up by GI clinic), pt to reach out to provider. Nutrition Focused Physical Exam: Performed (10/13/23 by HD) . Subcutaneous Fat Loss Orbital region: Mild Upper arm region (triceps/biceps): None present Thoracic and Lumbar regions (ribs, lower back, and maxillary line): Not assessed Lean Muscle Loss Skillman region (temporalis muscle): None present Clavicle bone [...] spent >30 minutes (Day of Discharge Code 75074) involved in the final examination of the [...] with a walker or standby assist with RN/MANAGER STUDENT SERVICES.Patient will possibly have an EGD on 10/11. [...] Daily potassium chloride 10 mEq Intravenous Q2H rlgcesqyi-zchsatpjd-ta-mag-sim 5 mL Oral BID losartan 100 mg [...] 10/11/2023 3:44 PM) Result Value WORKSTATION ID [id number] Impression 1. No aortic dissection or acute [...] who have questions please contact the health child care lead teacher that requested your imaging first. R Studies: Assessment: 87 y.o. female with history of HTN, HLD PE on Xarelto, Haque's esophagus, who presents to the ED,reporting a few day hx of worsening epigastric pain with radiation to her back associated with nausea, and inability to tolerate p.o. intake, found to have hypertensive emergency, admitted to [facility] for further management. GI team to take the pt for EGD tomorrow am. NPO at [place]. #NSTEMI likely type II i/s/o hypertensive emergency [...] Goals of Care: Team Pager(MD Coverage 09/09): #[phone] PCP: Kumar Schultz MD [phone] Attestation: IPI Certification I certify that I am a D-H credentialed attending provider with admitting privileges and that the patient meets or has met medical necessity to require an inpatient IPI level of care meeting a minimumof two midnights or is on the [facility] inpatient only procedure list (status C) due [...] disease) K21.9 Hyperlipidemia E78.5 Squamous cell carcinoma [id number] History of SCC (squamous cell carcinoma) of [...] Covid-19 Vaccine 12/12/2020 Moderna Covid-19 Monovalent 12Yr+ (Router Machine Operator 100mcg) 04/27/2021 Pneumococcal Polysaccharide (Pneumovax 23) 07/15/2012 [...] Negative Leukocytes, Urine Dipstick Negative Negative Specific Kyle Urine Automated 1.007 1.005 - 1.030 Appearance, [...] found to have hypertensive emergency, admitted to [facility] for further management. #NSTEMI [...] Dipstick Negative Leukocytes, Urine Dipstick Negative Specific Kyle Urine Automated 1.007 Appearance, Urine Dipstick Clear [...] 10/11/2023 3:44 PM) Result Value WORKSTATION ID [id number] Impression 1. No aortic dissection or acute [...] who have questions please contact the health child care lead teacher that requested your imaging first. Assessment/plan: Epigastric [...] months and has been seen at hospital [facility]-x[facility] for evaluation. She was told that she [...] in agreement with plan. Renae Cooper CMRN [phone] * Initial Assessments - Renae Cooper RN [...] surrogate would be surrogate decision maker [place] decision [place] law. (Only good for 180 days) spouse Geovanni Any patient receiving care in [place] must abide by [place] law. The hierarchy for surrogate decision making [...] (i) The agent with financial power of sports attorney or a conservator appointed in accordance [...] or living in a long term (including now)?: No In the past 12 months has the [employer], gas, oil, or water [employer] threatened to shut off services in your [...] Address confirmed as: [address] [place] [facility] [address] Social & Family Supports: All names listed below confirmed with patient as current and correct Extended Emergency Contact Information Primary Emergency Contact: Geovanni Ruffin Address: [place] [address] [facility] Mobile Relation: Spouse Secondary Emergency Contact: [...] Insurance: N/A ; Prescription Coverage: Preferred Pharmacy: [place] [id number] [place] [id number] Status: Patient is a : No Primary Care Provider confirmed: Kumar Schultz MD [phone] Patient/Caregiver Goals of Treatment: return home Potential [...] coordination of care as indicated. Renae [facility] [phone] * Consult Note - Xavi Monroe MD [...] nutrition in, so she presented to the [facility] ED. In the ED, [...] was normal. She last saw GI at [place] in 2021. Their plan was to put [...] Daily potassium chloride 10 mEq Intravenous Q2H dxzqgaikp-iwufpvdld-qo-mag-sim 5 mL Oral BID losartan 100 mg Oral Daily sodium chloride 0.9 % (flush) 5 mL Intravenous BID pantoprazole 40 mg Intravenous BID hydroCHLOROthiazide 12.5 mg Oral Daily Drips: sodium chloride 0.9% with potassium chloride 20 mEq 100 mL/hr (10/11/23 6083) PRN: prochlorperazine OR prochlorperazine, ondansetron, sodium chloride [...] who have questions please contact the health child care lead teacher that requested your imaging first. RECORDS: Obtained [...] proceed. Hailee Almanza MD Gastroenterology attending Pager [phone] * Consult Note - Jono Campbell MD [...] story is more consistent with a GI services delivery driver rather than a cardiac etiology. PLAN: Reasonable to obtain TTE tomorrow for assessment of pericardial effusion We will sign off at this time. Please feel free to reach out with further questions or concerns. Jono Campbell MD Manager Sales Training * ED Triage - Tex Purcell RN [...] Date/Time Associated Diagnosis Comments GIARDIA/CRYPTOSPORID IUM ANTIGENS ([facility]/CGP/APD/NLH) Routine 10/13/2023 3:50 PM EDT ECHO COMPLETE Routine 10/13/2023 12:52 PM EDT Hypertensive urgency SURGICAL PATHOLOGY Routine 10/13/2023 10 :26 AM EDT Upper Gi Endoscopy, Biopsy (95805) 10/13/2023 10:13 AM EDT Wt loss UPPER [...] PM EDT URINALYSIS BEAKER MICROSCPIC REFLEX EXAM ([facility]/JUAN J) STAT 10/11/2023 2:54 PM EDT URINALYSIS MICROSCOPIC WITH REFLEX TO CULTURE STAT 10/11/2023 2:54 PM EDT URINALYSIS WITH REFLEX CULTURE STAT 10/11/2023 2:54 PM EDT EKG 12-LEAD STAT 10/11/2023 2:49 PM EDT documented in this encounter Results * Giardia/Cryptosporidium Antigens ([facility]/CGP/APD/NLH) (10/13/2023 3:50 PM EDT) Giardia Antigen Negative Negative 12:31 PM EDT [facility] Cryptosporidium Antigen Negative Negative 10/14/2023 12:31 PM EDT [facility] Stool STOOL SPECIMEN / Unknown Non Blood Collection / Unknown 10/13/2023 3:50 PM EDT 10/13/2023 4:41 PM EDT Narrative [facility] - 10/14/2023 12:31 PM EDT Examination for other intestinal parasites requires foreign travel history. Examination for other intestinal parasites requires foreign travel history. Valente Bhatt MD MICROBIOLOGY - GEN ERAL ORDERABLES [facility] [place] [address] * ECHO COMPLETE (10/13/2023 12:52 PM EDT) EF 65 HEARTLAB SYSTEM Anatomical Region Laterality Modality Cardiac Other 10/13/2023 12:1 4 PM EDT Narrative 10/13/2023 1:18 PM EDT [address] [place] [address] ? Echocardiogram Report Name: NELSY RUFFIN ?Study Date: 10/13/2023 12:14 PMBP: 160/72 mmHg ? Patient Location: L1WD 0118 A : 1935 ? Height: 155 cm ? Account: [id number] Age: 87 yrs ? Weight: 64 kg Gender: Female ?BSA: 1.6 m2 Ordering Physician: MORE OROZCO Performed By: LE Palomares Reason For Study: Hypertensive urgency Exam Location: [facility]. Interpretation Summary 1. 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 Procedure Complete-85254. Satisfactory quality. There is sinus bradycardia. Left [...] Note Eri Patino MD - 10/13/2023 [address] [place] [address] Echocardiogram Report Name: NELSY RUFFIN Study Date: 2:14 PMBP: 160/72 mmHg Patient Location: [address] : 1935 Height: 155 cm Account: [id number] Age: 87 yrs Weight: 64 kg Gender: Female BSA: 1.6 m2 Ordering Physician: MORE OROZCO Performed By: LE Palomares Reason For Study: Hypertensive urgency Exam Location: [facility]. Interpretation Summary 1. 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 Procedure Complete-78599. Satisfactory quality. There is sinus bradycardia. Left [...] Case Report Surgical Pathology Report ? Case: [id number] ? Authorizing Provider: ??Geovanni Bell MD ?Collected: ? 10/13/2023 1026 ? Ordering Location: ? Gastroenterology at [facility] ?? Received: ?10/13/2023 1251 ? Pathologist: ? Judie Ovalle MD ? Specimens: ?? A) - Esophagus, esophagus at 37cm ? B) - Stomach ? C) - Small Bowel, Duodenum ? 10/17/2023 12:27 PM EDT [facility] Final Diagnosis A. Esophagus, esophagus at 37cm Biopsy: Cardia- and fundic-type mucosa with focal intestinal metaplasia, negative for dysplasia (see Discussion). B. Stomach, Biopsy: Gastric fundic and antral gland mucosa with mild chronic nonspecific gastritis. C. Small Bowel, Duodenum, Biopsy: Duodenal mucosa within normal limits, including preserved villous architecture. 10/17/2023 12:27 PM [facility] Discussion A - The findings are compatible with Haque esophagus in the appropriate endoscopic setting. 10/17/2023 12:27 PM [facility] Additional Studies Task ID IHC/Special Stains Result Comments B1-2 H pylori Negative 10/17/2023 12:27 PM [facility] Disclaimer(s) Formalin-fixed, paraffin-embedded tissue sections [...] other diagnostic tests. 10/17/2023 12:27 PM [facility] Clinical Information A. Esophagus, esophagus at 37cm Rule out Haque's B. Stomach, Rule out Helicobacter pylori C. Small Bowel, Duodenum, Rule out celiac 10/17/2023 12:27 PM [facility] Gross Description A. Esophagus, esophagus [...] cassette labeled C1. 10/17/2023 12:27 PM [facility] Result Note Routine 10/17/2023 12:27 PM EDT [facility] Tissue ESOPHAGEAL STRUCTURE / [...] loss Geovanni Bell MD PATHOLOGY/CYTOLOGY Billie FARIAS [facility] [place] [address] * UPPER GI ENDOSCOPY (10/13/2023 9:44 AM EDT) UPPER GI ENDOSCOPY [facility] Endoscopy ___ Procedure Date: 10/13/2023 9:44 AM ? Patient Name: Nelsy Ruffin ? Date of : 1935 ? Age: 87 ? Order #: [id number] ? Instrument Name: [id number] ? ___ Procedure: ? Upper GI endoscopy [...] ? classified as Haque's stage C0-M1 per Rickreall ? criteria present at the gastroesophageal junction. [...] classified as Haque's stage C0-M1 ? per Rickreall criteria. Biopsied. ? - Normal stomach. Biopsied. [...] - 1.07 mMol/L 10/13/2023 4:55 AM EDT [facility] Blood VENOUS BLOOD SPECIMEN / Unknown IP Care Team Draw / Unknown 10/13/2023 4:07 AM EDT 10/13/2023 4:23 AM EDT More Orozco MD CHEMISTRY ORDERABLES [facility] [place] [address] * (ABNORMAL) Basic Metabolic Panel (10/13/2023 4:07 AM EDT) Glucose 115 65 - 199 mg/dL 10/13/2023 4:55 AM EDT [facility] Comment:Glucose Concentratio n >=200 mg/dL plus symptoms is consistent with Diabetes Mellitus. Blood Urea Nitrogen 10 8 - 18 mg/dL 10/13/2023 4:55 AM EDT [facility] Creatinine 0.95 0.70 - 1.20 mg/dL 10/13/2023 4:55 AM EDT [facility] Sodium 142 135 - 145 mMol/L 10/13/2023 4:55 AM EDT [facility] Potassium 3.2(L) 3.5 - 5.0 mMol/L 10/13/2023 4:55 AM EDT [facility] Chloride 109(H) 98 - 107 mMol/L 10/13/2023 4:55 AM EDT [facility] Carbon Dioxide 20(L) 22 - 31 mMol/L 10/13/2023 4:55 AM EDT [facility] Anion Gap 13 5 - 15 mMol/L 10/13/2023 4:55 AM EDT [facility] Calcium 9.3 8.5 - 10.5 mg/dL 10/13/2023 4:55 AM EDT [facility] Est Glomerular Filtration Rate - Female 58 mL/min/1. 73 m?? 10/13/2023 4:55 AM EDT [facility] Comment: This patient's [...] AM EDT More Orozco MD CHEMISTRY ORDERABLES [facility] [place] [address] * (ABNORMAL) CBC (with Diff) (10/13/2023 4:07 AM EDT) White Blood Cell 6.31 4.00 - 9.50 x10(3)/mc L 10/13/2023 4:30 AM EDT [facility] Red Blood Cell 3.68(L) 4.00 - 5.21 x10(6)/mc L 10/13/2023 4:30 AM EDT [facility] Hemoglobin 11.8 11.7 - 15.5 g/dL 10/13/2023 4:30 AM EDT [facility] Hematocrit 34.6(L) 35.7 - 45.8 % 10/13/2023 4:30 AM [facility] Mean Cell Volume 94.0 82.6 - 94.4 fL 10/13/2023 4:30 AM [facility] Mean Cell Hemoglobin 32.1(H) 27.1 - 32.0 pg 10/13/2023 4:30 AM [facility] Mean Cell Hemoglobin Concentration 34.1 31.7 - 35.0 g/dL 10/13/2023 4:30 AM [facility] Platelet 240 145 - 357 x10(3)/mc L 10/13/2023 4:30 AM [facility] Mean Platelet Volume 10.3 7.6 - 12.9 fL 10/13/2023 4:30 AM [facility] RDW Standard Deviation 43.8 37.0 - 46.0 fL 10/13/2023 4:30 AM [facility] RDW coefficient of variation 12.8 11.5 - 14.1 % 10/13/2023 4:30 AM [facility] NRBC% auto 0.0 % 10/13/2023 4:30 AM [facility] NRBC Absolute 0.00 0.00 - 0.00 x10(3)/mc L 10/13/2023 4:30 AM [facility] Neutrophil % 65.4 % 10/13/2023 4:30 AM [facility] Neutrophil Absolute (ANC) - Automated 4.13 1.70 - 6.10 x10(3)/mc L 10/13/2023 4:30 AM [facility] Lymph % 26.1 % 10/13/2023 4:30 AM [facility] Lymph Absolute 1.65 0.90 - 3.20 x10(3)/mc L 10/13/2023 4:30 AM [facility] Monocyte % 6.2 % 10/13/2023 4:30 AM [facility] Monocyte Absolute 0.39 0.30 - 0.90 x10(3)/mc L 10/13/2023 4:30 AM EDT [facility] Eos % 1.6 % 10/13/2023 4:30 AM EDT [facility] Eos Absolute 0.10 0.00 - 0.40 x10(3)/mc L 10/13/2023 4:30 AM EDT [facility] Basophil % 0.5 % 10/13/2023 4:30 AM EDT [facility] Baso Absolute 0.03 0.00 - 0.10 x10(3)/mc L 10/13/2023 4:30 AM EDT [facility] Immature Gran % 0.2 % 4:30 AM EDT [facility] Immature Gran Absolute 0.01 0.00 - 0.04 x10(3)/mc L 10/13/2023 4:30 AM EDT [facility] Blood VENOUS BLOOD SPECIMEN / Unknown IP Care Team Draw / Unknown 10/13/2023 4:07 AM EDT 10/13/2023 4:23 AM EDT More Orozco MD HEMATOLOGY ORDERABLE S [facility] [place] [address] * Magnesium (10/12/2023 5:09 AM EDT) Magnesium 0.78 0.69 - 1.07 mMol/L 10/12/2023 5:46 AM EDT [facility] Blood VENOUS BLOOD SPECIMEN / Unknown IP Care Team Draw / Unknown 10/12/2023 5:09 AM EDT 10/12/2023 5:17 AM EDT More Orozco MD CHEMISTRY ORDERABLES [facility] [place] [address] * (ABNORMAL) Basic Metabolic Panel (10/12/2023 5:09 AM [facility]) Glucose 104 65 - 199 mg/dL 10/12/2023 6:08 AM [facility] Comment:Glucose Concentratio n >=200 mg/dL plus symptoms is consistent with Diabetes Mellitus. Blood Urea Nitrogen 12 8 - 18 mg/dL 10/12/2023 6:08 AM [facility] Creatinine 0.91 0.70 - 1.20 mg/dL 10/12/2023 6:08 AM [facility] Sodium 143 135 - 145 mMol/L 10/12/2023 6:08 AM [facility] Potassium 3.0(LLL) 3.5 - 5.0 mMol/L 10/12/2023 6:08 AM [facility] Chloride 109(H) 98 - 107 mMol/L 10/12/2023 6:08 AM [facility] Carbon Dioxide 23 22 - 31 mMol/L 10/12/2023 6:08 AM [facility] Anion Gap 11 5 - 15 mMol/L 10/12/2023 6:08 AM [facility] Calcium 9.1 8.5 - 10.5 mg/dL 10/12/2023 6:08 AM [facility] Est Glomerular Filtration Rate - Female 61 mL/min/1. 73 m?? 10/12/2023 6:08 AM [facility] Comment: This patient's estimated GFR [...] AM EDT More Orozco MD CHEMISTRY ORDERABLES [facility] [place] [address] * (ABNORMAL) CBC (with Diff) (10/12/2023 5:09 AM EDT) White Blood Cell 5.10 4.00 - 9.50 x10(3)/mc L 10/12/2023 5:21 AM EDT [facility] Red Blood Cell 3.51(L) 4.00 - 5.21 x10(6)/mc L 10/12/2023 5:21 AM EDT [facility] Hemoglobin 11.3(L) 11.7 - 15.5 g/dL 10/12/2023 5:21 AM EDT [facility] Hematocrit 33.2(L) 35.7 - 45.8 % 10/12/2023 5:21 AM EDT [facility] Mean Cell Volume 94.6(H) 82.6 - 94.4 fL 10/12/2023 5:21 AM EDT [facility] Mean Cell Hemoglobin 32.2(H) 27.1 - 32.0 pg 10/12/2023 5:21 AM EDT [facility] Mean Cell Hemoglobin Concentration 34.0 31.7 - 35.0 g/dL 10/12/2023 5:21 AM EDT [facility] Platelet 229 145 - 357 x10(3)/mc L 10/12/2023 5:21 AM EDT [facility] Mean Platelet Volume 10.2 7.6 - 12.9 fL 10/12/2023 5:21 AM EDT [facility] RDW Standard Deviation 43.5 37.0 - 46.0 fL 10/12/2023 5:21 AM EDT [facility] RDW coefficient of variation 12.7 11.5 - 14.1 % 10/12/2023 5:21 AM [facility] NRBC% auto 0.0 % 10/12/2023 5:21 AM [facility] NRBC Absolute 0.00 0.00 - 0.00 x10(3)/mc L 10/12/2023 5:21 AM [facility] Neutrophil % 54.2 % 10/12/2023 5:21 AM [facility] Neutrophil Absolute (ANC) - Automated 2.77 1.70 - 6.10 x10(3)/mc L 10/12/2023 5:21 AM [facility] Lymph % 35.9 % 10/12/2023 5:21 AM [facility] Lymph Absolute 1.83 0.90 - 3.20 x10(3)/mc L 10/12/2023 5:21 AM [facility] Monocyte % 7.3 % 10/12/2023 5:21 AM [facility] Monocyte Absolute 0.37 0.30 - 0.90 x10(3)/mc L 10/12/2023 5:21 AM [facility] Eos % 1.8 % 10/12/2023 5:21 AM [facility] Eos Absolute 0.09 0.00 - 0.40 x10(3)/mc L 10/12/2023 5:21 AM [facility] Basophil % 0.6 % 10/12/2023 5:21 AM [facility] Baso Absolute 0.03 0.00 - 0.10 x10(3)/mc L 10/12/2023 5:21 AM [facility] Immature Gran % 0.2 % 5:21 AM [facility] Immature Gran Absolute 0.01 0.00 - 0.04 x10(3)/mc L 10/12/2023 5:21 AM [facility] Blood VENOUS BLOOD SPECIMEN / Unknown IP Care Team Draw / Unknown 10/12/2023 5:09 AM EDT 10/12/2023 5:17 AM EDT More Orozco MD HEMATOLOGY ORDERABLE S Performing Organization Address City/[facility]/ZIP Co de Phone Number [facility] [place] [address] * (ABNORMAL) Hepatic Function Panel (10/12/2023 5:09 AM EDT) Albumin 3.9 3.2 - 5.2 g/dL 10/12/2023 5:46 AM EDT [facility] Aspartate Aminotransferase 15 <=30 unit/L 10/12/2023 5:46 AM EDT [facility] Alanine Aminotransferase 14 0 - 30 unit/L 10/12/2023 5:46 AM EDT [facility] Alkaline Phosphatase 46 35 - 105 unit/L 10/12/2023 5:46 AM EDT [facility] Bilirubin, Total 1.4(H) <=1.3 mg/dL 10/12/2023 5:46 AM EDT [facility] Bilirubin, Direct 0.2 0.0 - 0.3 mg/dL 10/12/2023 5:46 AM EDT [facility] Protein, Total 6.3 6.1 - 8.0 g/dL 10/12/2023 5:46 AM EDT [facility] Blood VENOUS BLOOD SPECIMEN / Unknown IP Care Team Draw / Unknown 10/12/2023 5:09 AM EDT 10/12/2023 5:17 AM EDT More Orozco MD CHEMISTRY ORDERABLES [facility] [place] [address] * Phosphorus (10/12/2023 5:09 AM EDT) Phosphorus 3.4 2.5 - 4.5 mg/dL 10/12/2023 5:46 AM EDT [facility] Blood VENOUS BLOOD SPECIMEN / Unknown IP Care Team Draw / Unknown 10/12/2023 5:09 AM EDT 10/12/2023 5:17 AM EDT More Orozco MD CHEMISTRY ORDERABLES Performing Organization Address City/[facility]/ZIP Co de Phone Number [facility] [place] [address] * TSH (10/11/2023 6:17 PM EDT) Thyroid Stimulating Hormone 1.63 0.27 - 4.20 mcIU/mL 10/12/2023 1:15 AM EDT [facility] Comment: Reference Interval (mcIU/mL): ?? Females: ? First Trimester: 0.23-3.88 ? Second Trimester: 0.22-3.90 ? Third Trimester: 0.44-4.66 Blood VENOUS BLOOD SPECIMEN / Unknown IP Care Team Draw / Unknown 10/11/2023 6:17 PM EDT 10/11/2023 6:23 PM EDT More Orozco MD CHEMISTRY ORDERABLES Performing Organization Address City/[facility] Co de Phone Number [facility] [place] [address] * Lipase (10/11/2023 6:17 PM EDT) Lipase 29 0 - 60 unit/L 10/12/2023 1:15 AM EDT [facility] Blood VENOUS BLOOD SPECIMEN / Unknown IP Care Team Draw / Unknown 10/11/2023 6:17 PM EDT 10/11/2023 6:23 PM EDT More Orozco MD CHEMISTRY ORDERABLES Performing Organization Address City/[facility]/ZIP Co de Phone Number [facility] [place] [address] * (ABNORMAL) Troponin-T, Joseph Sensitivity 3 Hour (10/11/2023 6:17 PM EDT) Pathologist [facility] Troponin-T, High Sensitivity 15(H) <=14 ng/L 10/11/2023 6:52 PM EDT [facility] Comment: This patient's troponin [...] troponin value can be found in the [facility] Test Catalog Troponin - [email or web address]/catalogs/[email or web address] Reference: Fourth [place] Definition of Myocardial Infarction. Journal of the [place] [employer] 2018;72:2133-8053 Troponin-T, HS 3 hr delta 2 ng/L 10/11/2023 6:52 PM EDT [facility] Comment:The 3 hour Troponin T delta value is the absolute difference between the Troponin T concentrations of the initial and subsequent sample collected between 2 h: 45 min and 6 h following the initial collection Blood VENOUS BLOOD SPECIMEN / Unknown IP Care Team Draw / Unknown 10/11/2023 6:17 PM EDT 10/11/2023 6:23 PM EDT Karla Faria MD CHEMISTRY ORDERABLES [facility] [place] [address] * (ABNORMAL) Troponin-T, High Sensitivity 1 Hour (10/11/2023 3:59 PM EDT) Pathologist [facility] Troponin-T, High Sensitivity 16(H) <=14 ng/L 10/11/2023 4:32 PM EDT [facility] Comment: This patient's troponin [...] troponin value can be found in the [facility] Test Catalog Troponin - [email or web address]/catalogs/[email or web address]/files/[email or web address] Reference: Fourth [place] Definition of Myocardial Infarction. Journal of the [place] [employer] 2018;72:8816-0840 Troponin-T, HS 1 hr delta 1 ng/L 10/11/2023 4:32 PM EDT [facility] Comment:The 1 hour Troponin T delta value is the absolute difference between the Troponin T concentrations of the initial and subsequent sample collected between 45 - 120 minutes following the initial collection. Blood VENOUS BLOOD SPECIMEN / Unknown Venipuncture / Unknown 10/11/2023 3:59 PM EDT 10/11/2023 4:05 PM EDT Karla Faria MD CHEMISTRY ORDERABLES [facility] [place] [address] * CT Angiogram Chest Abdomen Pelvis w Contrast (10/11/2023 3:44 PM EDT) WORKSTATION ID [id number] RAD Anatomical Region Laterality Modality Abdomen, Chest [...] who have questions please contact the health child care lead teacher that requested your imaging first. ? Narrative [...] and of normal caliber. No dissection. Scattered [id number] atheromatous plaque is noted. Celiac: Patent. No [...] and of normal caliber. No dissection. Scattered [id number] atheromatous plaque is noted. Celiac: Patent. No [...] patients who have questions please contactthe health child care lead teacher that requested your imaging first. Karla Faria MD IMG CT ORDERABLES * (ABNORMAL) Hemoglobin A1c (10/11/2023 3:01 PM EDT) Hemoglobin A1c 6.1(H) 4.3 - 5.6 % 10/12/2023 1:06 AM EDT [facility] Comment: Per ADA guidelines, [...] red blood cell turnover may not be counter sales representative of glycemic control. Reference Interval: 4.3 - 5.6% 5.7 - 6.4%: Consistent with prediabetes >=6.5%: Consistent with diagnosis of diabetes mellitus Estimated Average Glucose 10/12/2023 1:06 AM T [facility] Comment:Not Calculated. Blood VENOUS BLOOD SPECIMEN / Unknown Venipuncture / Unknown 10/11/2023 3:01 PM EDT 10/11/2023 3:09 PM EDT Narrative [facility] - 10/12/2023 1:06 AM EDT Estimated average glucose (eAG) is calculated from the equation described in: Malvin DM, Jamal J, Janina R, et al. ??Translating the A1C assay into estimated average glucose values. ??Diabetes Care 2008:31(8):6595-5356. Additional resources are available on the ADA website (diabetes.org). More Orozco MD CHEMISTRY ORDERABLES [facility] [place] [address] * (ABNORMAL) Troponin-T, High Sensitivity (10/11/2023 3:01 PM EDT) [facility] Troponin-T, High Sensitivity Initial 17(H) <=14 ng/L 10/11/2023 3:53 PM EDT [facility] Comment: This patient's troponin [...] troponin value can be found in the [facility] Test Catalog Troponin - [email or web address]/[email or web address]/[email or web address] Reference: Fourth [place] Definition of Myocardial Infarction. Journal of the [place] [employer] 2018;72:8288-7312 Blood VENOUS BLOOD SPECIMEN / Unknown Venipuncture / Unknown 10/11/2023 3:01 PM EDT 10/11/2023 3:09 PM EDT Karla Faria MD CHEMISTRY ORDERABLES [facility] [place] [address] * Lipase (10/11/2023 3:01 PM EDT) Lipase 35 0 - 60 unit/L 10/11/2023 3:53 PM EDT [facility] Blood VENOUS BLOOD SPECIMEN / Unknown Venipuncture / Unknown 10/11/2023 3:01 PM EDT 10/11/2023 3:09 PM EDT Karla Faria MD CHEMISTRY ORDERABLES Performing Organization Address City/[facility]/ZIP Co de Phone Number [facility] [place] [address] * Hepatic Function Panel (10/11/2023 3:01 PM EDT) Albumin 4.2 3.2 - 5.2 g/dL 10/11/2023 3:53 PM EDT [facility] Aspartate Aminotransferase 16 <=30 unit/L 10/11/2023 3:53 PM EDT [facility] Alanine Aminotransferase 16 0 - 30 unit/L 10/11/2023 3:53 PM EDT [facility] Alkaline Phosphatase 51 35 - 105 unit/L 10/11/2023 3:53 PM EDT [facility] Bilirubin, Total 1.1 <=1.3 mg/dL 10/11/2023 3:53 PM EDT [facility] Bilirubin, Direct 0.2 0.0 - 0.3 mg/dL 10/11/2023 3:53 PM EDT [facility] Protein, Total 7.1 6.1 - 8.0 g/dL 10/11/2023 3:53 PM EDT [facility] Blood VENOUS BLOOD SPECIMEN / Unknown Venipuncture / Unknown 10/11/2023 3:01 PM EDT 10/11/2023 3:09 PM EDT Karla Faria MD CHEMISTRY ORDERABLES [facility] [place] [address] * (ABNORMAL) Basic Metabolic Panel (10/11/2023 3:01 PM EDT) Glucose 105 65 - 199 mg/dL 10/11/2023 3:53 PM EDT [facility] Comment:Glucose Concentratio n >=200 mg/dL plus symptoms is consistent with Diabetes Mellitus. Blood Urea Nitrogen 14 8 - 18 mg/dL 10/11/2023 3:53 PM EDT [facility] Creatinine 0.91 0.70 - 1.20 mg/dL 10/11/2023 3:53 PM EDT [facility] Sodium 144 135 - 145 mMol/L 10/11/2023 3:53 PM EDT [facility] Potassium 3.1(L) 3.5 - 5.0 mMol/L 10/11/2023 3:53 PM EDT [facility] Chloride 107 98 - 107 mMol/L 10/11/2023 3:53 PM EDT [facility] Carbon Dioxide 23 22 - 31 mMol/L 10/11/2023 3:53 PM EDT [facility] Anion Gap 14 5 - 15 mMol/L 10/11/2023 3:53 PM EDT [facility] Calcium 9.9 8.5 - 10.5 mg/dL 10/11/2023 3:53 PM EDT [facility] Est Glomerular Filtration Rate - Female 61 mL/min/1. 73 m?? 10/11/2023 3:53 PM EDT [facility] Comment: This patient's [...] Faria MD CHEMISTRY ORDERABLES Performing Organization Address City/State/[facility] Co de Phone Number [facility] [place] [address] * (ABNORMAL) CBC (with Diff) (10/11/2023 3:01 PM EDT) White Blood Cell 6.04 4.00 - 9.50 x10(3)/mc L 10/11/2023 3:28 PM EDT [facility] Red Blood Cell 3.72(L) 4.00 - 5.21 x10(6)/mc L 10/11/2023 3:28 PM EDT [facility] Hemoglobin 12.0 11.7 - 15.5 g/dL 10/11/2023 3:28 PM EDT [facility] Hematocrit 34.5(L) 35.7 - 45.8 % 10/11/2023 3:28 PM EDT [facility] Mean Cell Volume 92.7 82.6 - 94.4 fL 10/11/2023 3:28 PM EDT [facility] Mean Cell Hemoglobin 32.3(H) 27.1 - 32.0 pg 10/11/2023 3:28 PM [facility] Mean Cell Hemoglobin Concentration 34.8 31.7 - 35.0 g/dL 10/11/2023 3:28 PM [facility] Platelet 246 145 - 357 x10(3)/mc L 10/11/2023 3:28 PM [facility] Mean Platelet Volume 10.3 7.6 - 12.9 fL 10/11/2023 3:28 PM [facility] RDW Standard Deviation 43.2 37.0 - 46.0 fL 10/11/2023 3:28 PM [facility] RDW coefficient of variation 12.6 11.5 - 14.1 % 10/11/2023 3:28 PM [facility] NRBC% auto 0.0 % 10/11/2023 3:28 PM [facility] NRBC Absolute 0.00 0.00 - 0.00 x10(3)/mc L 10/11/2023 3:28 PM [facility] Neutrophil % 67.7 % 10/11/2023 3:28 PM [facility] Neutrophil Absolute (ANC) - Automated 4.09 1.70 - 6.10 x10(3)/mc L 10/11/2023 3:28 PM [facility] Lymph % 25.5 % 10/11/2023 3:28 PM [facility] Lymph Absolute 1.54 0.90 - 3.20 x10(3)/mc L 10/11/2023 3:28 PM [facility] Monocyte % 5.6 % 10/11/2023 3:28 PM [facility] Monocyte Absolute 0.34 0.30 - 0.90 x10(3)/mc L 10/11/2023 3:28 PM [facility] Eos % 0.5 % 10/11/2023 3:28 PM [facility] Eos Absolute 0.03 0.00 - 0.40 x10(3)/mc L 10/11/2023 3:28 PM EDT [facility] Basophil % 0.5 % 10/11/2023 3:28 PM EDT [facility] Baso Absolute 0.03 0.00 - 0.10 x10(3)/mc L 10/11/2023 3:28 PM EDT [facility] Immature Gran % 0.2 % 3:28 PM EDT [facility] Immature Gran Absolute 0.01 0.00 - 0.04 x10(3)/mc L 10/11/2023 3:28 PM EDT [facility] Blood VENOUS BLOOD SPECIMEN / Unknown Venipuncture / Unknown 10/11/2023 3:01 PM EDT 10/11/2023 3:09 PM EDT Karla Faria MD HEMATOLOGY ORDERABLE S [facility] [place] [address] * (ABNORMAL) Urinalysis Microscopic Reflex to Culture (10/11/2023 2:54 PM EDT) Bacteria, Urine None None /HPF 3:52 PM EDT [facility] RBC, Urine 5(H) 0 - 4 /HPF 10/11/2023 3:52 PM EDT [facility] WBC, Urine 0 0 - 5 /HPF 10/11/2023 3:52 PM EDT [facility] Squamous Epithelial Cells, Urine 1 <5 /HPF 10/11/2023 3:52 PM EDT [facility] Hyaline Casts, Urine 0 0 - 2 /LPF 10/11/2023 3:52 PM EDT [facility] Comment 10/11/2023 3:52 PM EDT [facility] Comment:Interpret results wi th caution, microscopic results are from a suboptimal specimen. Urine URINE SPECIMEN OBTAINED BY CLEAN CATCH PROCEDURE / Unknown Non Blood Collection / Unknown 10/11/2023 2:54 PM EDT 10/11/2023 3:09 PM EDT Karla Faria MD URINE ORDERABLES [facility] [place] [address] * Urinalysis Microscopic with Reflex to Culture (10/11/2023 2:54 PM EDT) Urine URINE SPECIMEN OBTAINED BY CLEAN CATCH PROCEDURE / Unknown Non Blood Collection / Unknown 10/11/2023 2:54 PM EDT 10/11/2023 3:09 PM EDT Karla Faria MD URINE ORDERABLES Performing Organization Address City/[facility]/ZIP Co de Phone Number [facility] [place] [address] * (ABNORMAL) Urinalysis with reflex Culture (10/11/2023 2:54 PM EDT) Glucose, Urine Dipstick Negative Negative 10/11/2023 3:52 PM EDT [facility] Protein, Urine Dipstick Negative Negative 10/11/2023 3:52 PM EDT [facility] Bilirubin, Urine Dipstick Negative Negative 10/11/2023 3:52 PM EDT [facility] Comment:Clinical correlation required for positive Urine Bilirubin results as false positive may occur with some drugs and drug related products. If a false positive is suspected a serum total bilirubin should be considered if clinically indicated. Urobilinogen, Urine Dipstick Normal Normal, 0.2 mg/dL, 1.0 mg/dL 10/11/2023 3:52 PM EDT [facility] pH, Urine (dipstick) 7.0 5.0 - 8.0 10/11/2023 3:52 PM EDT [facility] Blood, Urine Dipstick Moderate(A) Negative 10/11/2023 3:52 PM EDT [facility] Ketone, Urine Dipstick Negative Negative 10/11/2023 3:52 PM EDT [facility] Nitrite, Urine Dipstick Negative Negative 10/11/2023 3:52 PM EDT [facility] Leukocytes, Urine Dipstick Negative Negative 10/11/2023 3:52 PM EDT [facility] Specific Kyle Urine Automated 1.007 1.005 - 1.030 10/11/2023 3:52 PM EDT [facility] Appearance, Urine Dipstick Clear Clear 10/11/2023 3:52 PM EDT [facility] Color, Urine Dipstick Yellow Yellow, Dark Yellow 10/11/2023 3:52 PM EDT [facility] Urine URINE SPECIMEN OBTAINED BY CLEAN CATCH PROCEDURE / Unknown Non Blood Collection / Unknown 10/11/2023 2:54 PM EDT 10/11/2023 3:09 PM EDT Karla Faria MD URINE ORDERABLES Performing Organization Address City/[facility] Co de Phone Number [facility] [place] [address] * EKG 12 Lead (10/11/2023 2:49 PM EDT) Ventricular rate 53 BPM MUSE SYSTEM Atrial Rate 53 BPM MUSE SYSTEM P-R Interval 176 ms MUSE SYSTEM QRS Duration 70 ms MUSE SYSTEM Q-T Interval 428 ms MUSE SYSTEM QTC Calculated (Bezet) 401 ms MUSE SYSTEM Calculated P [place] 65 degrees MUSE SYSTEM Calculated R Erie 6 degrees MUSE SYSTEM Calculated T E[place] 51 degrees MUSE SYSTEM INTERPRETATION Sinus bradycardia Low voltage QRS Cannot rule out Anteroseptal infarct (cited on or before 21-JUN-2010) Abnormal ECG When compared with ECG of 21-JUN-2010 10:35, Questionable change in initial forces of Anteroseptal leads Confirmed by MD CELIS ARMIN ([id number]) on 10/11/2023 3:30:54 PM MUSE SYSTEM 10/11/2023 2:49 PM EDT 10/11/2023 3:30 PM EDT Karla Faria MD ECG ORDERABLES [place] [facility] documented in this encounter Visit Diagnoses [...] Elza Wagner RN - Reason: Patient/family refused)0957 ([facility] Hold - Provider: Admin Adt - Reason: Transfer to a Procedural area)1132 ([facility] Unhold - Provider: Admin Adt) losartan (Cozaar) tablet 100 mg 100 mg, Oral, DAILY, First dose on 10/12/23 at 0900, Until Discontinued, Routine 0917 (Given - Provider: Jennifer Zhou RN) 0957 ([facility] Hold - Provider: Admin Adt - Reason: Transfer to a Procedural area)1132 ([facility] Unhold - Provider: Admin Adt)1451 [...] (Given - Provider: Patricia Jj RN) 0957 ([facility] Hold - Provider: Admin Adt [...] (Given - Provider: Jennifer Zhou RN) 0957 ([facility] Hold - Provider: Admin Adt - Reason: Transfer to a Procedural area)1132 ([facility] Unhold - Provider: Admin Adt)1451 (Given - Provider: Erendira Barnhart RN) sodium chloride 0.9 % (flush) (BD PosiFlush Normal Saline 0.9) flush 5 mL 5 mL, Intravenous, 2 TIMES DAILY, First dose on 10/11/23 at 2345, Until Discontinued, Routine 2352 (Given - Provider: Perlita Milian RN) 0917 (Given - Provider: Jennifer Zhou RN)2025 (Given - Provider: Patricia Jj RN) 0957 ([facility] Hold - Provider: Admin Adt - Reason: Transfer to a Procedural area)1132 ([facility] Unhold - Provider: Admin Adt)1452 [...] if ineffective use prochlorperazine second line. 0957 ([facility] Hold - Provider: Admin Adt - Reason: Transfer to a Procedural area)1132 ([facility] Unhold - Provider: Admin Adt) prochlorperazine (Compazine) (5 mg/mL) injection 10 mg(Linked Group 1) 10 mg, Intravenous, EVERY 6 HOURS PRN, Starting on 10/12/23 at 0450, Until 10/13/23 at 1957, Nausea, Vomiting, Use ondansetron first line and if ineffective use prochlorperazine second line., Routine 0957 ([facility] Hold - Provider: Admin Adt - Reason: Transfer to a Procedural area)1132 ([facility] Unhold - Provider: Admin Adt) prochlorperazine (Compazine) tablet 10 mg(Linked Group 1) 10 mg, Oral, EVERY 6 HOURS PRN, Starting on 10/12/23 at 0450, Until 10/13/23 at 1957, Nausea, Use ondansetron first line and if ineffective use prochlorperazine second line. Maximum dose: 50 mg / 24 hrs, Routine 0957 ([facility] Hold - Provider: Admin Adt - Reason: Transfer to a Procedural area)1132 ([facility] Unhold - Provider: Admin Adt) [...] Routine documented in this encounter Care Teams Clinical Field Specialist Relationship Specialty Start Date End Date Kumar Schultz MD [address] [place] [address] PCP - General Family Medicine 03/19/19 documented as of this encounter
--- OUTSIDE RECORDS SUMMARY | 2023-12-17 15:27 | XMS_ITS | Encounter Summary ---
Author Organization [facility] Address [address] [place] [address] Care Team Providers Care Skin Lap Bonder Name Role Phone Candie Skaggs MD Primary Care Provider [phone] Encounter Details Date Type Department Care Team (Latest Contact Info) Description 04/04/2022 2:53 PM EST - 04/04/2022 4:12 PM EST Hospital Encounter XRay at [address] [place] [phone] Lino Duke MD Bilateral hip pain Discharge [...] who have questions please contact the health critical care clinical nurse specialist that requested your imaging first. ? Electronically signed by: Yolanda Tripp MD, [facility] ([phone]), at 04/05/2022 9:46 AM Narrative 04/05/2022 9:46 [...] patients who have questions please contactthe health critical care clinical nurse specialist that requested your imaging first. Electronically signed by: [facility]anda [facility]pp [facility]([phone]), at 04/05/2022 9:46 AM Lino Duke MD IMG DX ORDERABLES documented in this encounter Visit Diagnoses Diagnosis Bilateral hip pain Pain in joint, pelvic region and thigh documented in this encounter Care Teams Skin Lap Bonder Relationship Specialty Start Date End Date Candie Skaggs MD [address] [place] [address] PCP - General Family Medicine 03/19/19 documented as of this encounter
--- OUTSIDE RECORDS SUMMARY | 2023-12-17 15:27 | XMS_ITS | Encounter Summary ---
Author Organization [facility] [place] [address] Care Team Providers Care Aircraft Sales Representative Name Role Phone Candie Skaggs MD Primary Care Provider [phone] Reason for Referral * Consultation (Routine) - Authorized Specialty Diagnoses / Procedures Referred By Ko duarte Referred To Contact Dermatology Diagnoses Dysplastic nevus of skin Candie Skaggs MD [address] [place] [address] [facility] [address] [place] [address] Referral ID Status Reason Start Date Expiration Date Visits Requested Visits Authorized [id number] Authorized Consult, Test & Treat PCP Updated and/or Approved 3 01/01/2024 6 6 Encounter Details Date Type Department Care Team (Latest Contact Info) Description 01/10/2023 Transcribe Orders eDH Incoming Referrals [phone] Candie Skaggs MD [address] [place] [address] Dysplastic nevus of skin Social [...] unspecified documented in this encounter Care Teams Aircraft Sales Representative Relationship Specialty Start Date End Date Candie Skaggs MD [address] [place] [address] PCP - General Family Medicine 03/19/19 documented as of this encounter
--- OUTSIDE RECORDS SUMMARY | 2023-12-17 15:27 | XMS_ITS | Encounter Summary ---
Author Organization [facility] Address [facility] [place] [address] Care Team Providers Care Science Faculty Member Name Role Phone Candie Skaggs MD Primary Care Provider [phone] Encounter Details Date Type Department Care Team (Late st Contact Info) Description 12/18/2020 Ancillary Procedure Radiology Library at [facility] [place] [phone] Candie Skaggs MD [address] [place] [address] Social History Tobacco Use Types Packs/Day Years [...] Skaggs MD IMG FILM LIBRARY ORD ERABLES [place], [place] documented in this encounter Visit Diagnoses Not on filedocumented in this encounter Care Teams Science Faculty Member Relationship Specialty Start Date End Date Candie Skaggs MD [address] [place] [address] PCP - General Family Medicine 03/19/19 documented as of this encounter
--- OUTSIDE RECORDS SUMMARY | 2023-12-17 15:27 | XMS_ITS | Encounter Summary ---
Author Organization [facility] [place] [address] Care Team Providers Care Surgeon Chief Name Role Phone Candie Skaggs MD Primary Care Provider [phone] Encounter Details Date Type Department Care Team [...] on filedocumented in this encounter Care Teams Surgeon Chief Relationship Specialty Start Date End Date Candie Skaggs MD [address] [place] [address] PCP - General Family Medicine 03/19/19 documented as of this encounter
--- OUTSIDE RECORDS SUMMARY | 2023-12-17 15:27 | XMS_ITS | Encounter Summary ---
[place] [address] Care Team Providers Care Parker Name Role Phone Stefan Arteaga MD Primary Care Provider [phone] Encounter Details Date Type Department Care Team (Late st Contact Info) Description 05/02/2017 External [place] [address] Social History Tobacco Use Types [...] on filedocumented in this encounter Care Teams Parker Relationship Specialty Start Date End Date Stefan Arteaga MD PCP - General 10/13/14 03/18/19 documented as of this encounter
--- OUTSIDE RECORDS SUMMARY | 2023-12-17 15:27 | XMS_ITS | Encounter Summary ---
Author Organization [facility] [address] Care Team Providers Care Etl Programmer Name Role Phone Candie Skaggs MD Primary [...] on filedocumented in this encounter Care Teams Etl Programmer Relationship Specialty Start Date End Date Candie Skaggs MD [address] [place] [address] PCP - General Family Medicine 03/19/19 documented as of this encounter
--- OUTSIDE RECORDS SUMMARY | 2023-12-17 15:27 | XMS_ITS | Encounter Summary ---
Author Organization [facility] [place] [place] [address] Care Team Providers Care Culinary Art Teacher Name Role Phone Candie Skaggs MD Primary Care Provider [phone] Encounter Details Date Type Department Care Team (Late st Contact Info) Description 05/22/2021 Telephone Dermatology at [facility] [address] [place] [phone] Geovanni Champagne MD [facility] [address] [place] [address] Social History Tobacco Use Types Packs/Day Years [...] with other providers, but no. Please call [phone]. Thank you, Maye documented in this encounter Plan of Treatment Not on file documented as of this encounter Visit Diagnoses Not on filedocumented in this encounter Care Teams Culinary Art Teacher Relationship Specialty Start Date End Date Candie Skaggs MD [address] [place] [address] PCP - General Family Medicine 03/19/19 documented as of this encounter
--- OUTSIDE RECORDS SUMMARY | 2023-12-17 15:27 | XMS_ITS | Encounter Summary ---
Author Organization [facility] [place] [address] Care Team Providers Care Housekeeping Attendant Name Role Phone Gregory, Estee Andino APRN Primary Care Provider [phone] Reason for Visit * Reason Comments Skin Check Encounter Details Date Type Department Care Team (Late st Contact Info) Description 02/01/2014 8:00 AM EST Office Visit Dermatology at [place] [address] [place] [address] Noble Moseley MD [address] [facility] [place] [address] History of SCC (squamous cell carcinoma) of [...] from the original note were not included. [facility] Actinic Keratosis: After Your Visit Your [...] more? Visit our health information library at [email or web address] You can also view health information on Match[employer], your personal patient account. Log in or sign up today. Enter L364 in the search box to learn more about Actinic Keratosis: After Your Visit. ?? [phone] [employer], [employer]. Care instructions adapted under license by [facility]. This care instruction is for use with your licensed healthcare professional. If you have questions about a medical condition or this instruction, always ask your healthcare professional. [employer] disclaims any warranty or liability for your use of this information. Content Version: [id number]; Last Revised: March 31, 2012 documented in [...] dyschromia documented in this encounter Care Teams Housekeeping Attendant Relationship Specialty Start Date End Date Estee Novak APRN PCP - General 01/09/10 10/12/14 documented as of this encounter
--- OUTSIDE RECORDS SUMMARY | 2023-12-17 15:27 | XMS_ITS | Encounter Summary ---
Author Organization [facility] [place] [address] Care Team Providers Care Vendor Management Consultant Name Role Phone Candie Skaggs MD Primary Care Provider [phone] Reason for Visit * Reason Comments Bilateral Leg Pain * Consultation (Routine) - Closed Specialty Diagnoses / Procedures Referred By Contac t Referred To Contact Pain and Spine Center Diagnoses Bilateral hip pain Radiculopathy of lumbar region Lower extremity pain, left Lower extremity pain, right spine- BLE pain/ XR h/p 04/04/22 in eDH Rukhsana Mills PA [facility] [place] [address] [facility] [place] [address] Referral ID Status Reason Start Date Expiration Date V isits Requested Visits Authorized [id number] Closed Consult, Test & Treat 04/04/2022 04/04/2023 1 1 Encounter Details Date Type Department Care Team (Latest Contact Info) Description 06/10/2022 2:00 PM EDT Office Visit [facility] [place] [address] Candie Mandujano APRN [facility] [place] [address] Bilateral lumbar radiculopathy Social History Tobacco Use [...] Mandujano APRN - 06/10/2022 2:00 PM EDT [facility] Medical Decision Making: [...] MD Referring Provider: Rukhsana Mandujano APRN 06/10/2022 [facility] documented in this encounter Plan of Treatment Not on file documented as of this encounter Visit Diagnoses Diagnosis Bilateral lumbar radiculopathy documented in this encounter Care Teams Vendor Management Consultant Relationship Specialty Start Date End Date Candie Skaggs MD [address] [address] PCP - General Family Medicine 03/19/19 documented as of this encounter
--- OUTSIDE RECORDS SUMMARY | 2023-12-17 15:27 | XMS_ITS | Encounter Summary ---
Author Organization [facility] [place] [address] Care Team Providers Care Sas Etl Developer Name Role Phone Candie Skaggs MD Primary Care Provider [phone] Encounter Details Date Type Department Care Team [...] on filedocumented in this encounter Care Teams Sas Etl Developer Relationship Specialty Start Date End Date Candie Skaggs MD [address] [place] [address] PCP - General Family Medicine 03/19/19 documented as of this encounter
--- OUTSIDE RECORDS SUMMARY | 2023-12-17 15:27 | XMS_ITS | Encounter Summary ---
Author Organization [facility] [place] [address] Care Team Providers Care Location Man Name Role Phone Candie Skaggs MD Primary Care Provider [phone] Reason for Referral * Audiology Exam (Routine) - Closed Specialty Diagnoses / Procedures Referred By Contbrendan t Referred To Contact Audiology Diagnoses Hearing loss, unspecified hearing loss type, unspecified laterality Candie Skaggs MD [address] [place] [address] [facility] [address] [place] [address] Referral ID Status Reason Start Date Expiration Date V isits Requested Visits Authorized [id number] Closed Specialty Service Requested PCP Updated and/or Approved 04/10/2022 04/10/2023 1 1 Encounter Details Date Type Department Care Team (Latest Contact Info) Description 04/10/2022 Transcribe Orders eDH Incoming Referrals [phone] Candie Skaggs MD [address] [place] [address] Hearing loss, unspecified hearing loss type, [...] laterality documented in this encounter Care Teams Location Man Relationship Specialty Start Date End Date Candie Skaggs MD [address] [place] [address] PCP - General Family Medicine 03/19/19 documented as of this encounter
--- OUTSIDE RECORDS SUMMARY | 2023-12-17 15:27 | XMS_ITS | Encounter Summary ---
Author Organization [facility] [place] [address] Care Team Providers Care Director Erp Name Role Phone Candie Skaggs MD Primary Care Provider [phone] Reason for Visit * Reason Comments Travel Consult Encounter Details Date Type Department Care Team (Late st Contact Info) Description 04/15/2022 2:00 PM EST Office [place] [phone] Leatha Sanchez, [facility] [place] [address] Counseling for travel; Need for immunization against [...] from first to last): [facility] ([facility], [facility]) then [facility] ([facility], [facility] via [place] Departure date: 04/21/22 Length of trip: 1 month Purpose of travel: vacation [place] of environment: mountains, urban Accommodations: hotel in [facility] and [facility]; guest house in [facility] Medical History: Medical problems: Patient Active Problem List Diagnosis Code ??? Pulmonary embolism, unprovoked I26.99 ??? Pericardial effusion I31.39 ??? Hypertension I10 ??? GERD (gastroesophageal reflux disease) K21.9 ??? Hyperlipidemia E78.5 ??? Squamous cell carcinoma [id number] ??? History of SCC (squamous cell carcinoma) [...] travel. Follow-up Recommendations: Advised traveler to contact [facility] if travel plans change or [...] disease documented in this encounter Care Teams Director Erp Relationship Specialty Start Date End Date Candie Skaggs MD [address] [place] [address] PCP - General Family Medicine 03/19/19 documented as of this encounter
--- OUTSIDE RECORDS SUMMARY | 2023-12-17 15:27 | XMS_ITS | Encounter Summary ---
Author Organization [facility] [place] [address] Care Team Providers Care Electrical Equipment Assembler Name Role Phone Candie Skaggs MD Primary Care Provider [phone] Encounter Details Date Type Department Care Team [...] on filedocumented in this encounter Care Teams Electrical Equipment Assembler Relationship Specialty Start Date End Date Candie Skaggs MD [address] [place] [address] PCP - General Family Medicine 03/19/19 documented as of this encounter
--- OUTSIDE RECORDS SUMMARY | 2023-12-17 15:27 | XMS_ITS | Encounter Summary ---
Author Organization [facility] Address [facility] [place] [address] Care Team Providers Care Floater Operator Name Role Phone Candie Skaggs MD Primary Care Provider [phone] Encounter Details Date Type Department Care Team (Latest Contact Info) Description 04/04/2022 4:13 PM EST - 04/04/2022 11:59 PM EST Hospital Encounter XRay at [address] [place] [phone] Lino Duke MD Right hand pain Discharge [...] questions please contact the health home care liaison that requested your imaging first. ? Electronically signed by: Yolanda Tripp MD, [facility] ([phone]), at 04/05/2022 10:55 AM Narrative 04/05/2022 10:55 [...] have questions please contactthe health home care liaison that requested your imaging first. Electronically signed by: Yolanda Tripp MD, [facility]([phone]), at 04/05/2022 10:55 AM Lino Duke MD IMG DX ORDERABLES documented in this encounter Visit Diagnoses Diagnosis Right hand pain Pain in limb documented in this encounter Care Teams Floater Operator Relationship Specialty Start Date End Date Candie Skaggs MD [address] [place] [address] PCP - General Family Medicine 03/19/19 documented as of this encounter
--- OUTSIDE RECORDS SUMMARY | 2023-12-17 15:27 | XMS_ITS | Encounter Summary ---
Author Organization [facility] [place] [address] Care Team Providers Care Plane Captain Name Role Phone Stefan Arteaga MD Primary Care Provider [phone] Encounter Details Date Type Department Care Team (Late st Contact Info) Description 05/02/2017 [place] [address] Milagros Alexander MD [facility] [place] [address] Social History Tobacco Use Types Packs/Day Years [...] 05/02/17 Initial contact time: 12:42pm Referring Provider: [facility] Patient Location: [facility] Presenting Symptoms per [...] gtt, OSH to recontact transfer center. As [facility] [place] with no expected further dischargestoday, accepted patient but suggested OSH also explore other transfer options. Will let us know if they transfer somewhere else. Milagros Alexander MD Clean In Places Operator documented in this encounter Plan of Treatment Not on file documented as of this encounter Visit Diagnoses Not on filedocumented in this encounter Care Teams Plane Captain Relationship Specialty Start Date End Date Stefan Arteaga MD PCP - General 10/13/14 03/18/19 documented as of this encounter
--- OUTSIDE RECORDS SUMMARY | 2023-12-17 15:27 | XMS_ITS | Encounter Summary ---
Author Organization [place] [address] Care Team Providers Care Patient Observation Assistant Name Role Phone Stefan Arteaga MD Primary Care Provider [phone] Reason for Visit * Reason Comments Travel Consult Encounter Details Date Type Department Care Team (Late st Contact Info) Description 10/14/2014 2:30 PM EDT Office [place] [phone] Charisma Zhang, RN [facility] [place] [address] Other specified counseling Discharge Disposition: Home Social [...] Have a great trip! Travel Safely, [email or web address] [phone] documented in this encounter Progress Notes * [...] retreat Type of environment: small town Accommodations: [facility] guest house Medical History: Medical problems: Patient [...] counseling documented in this encounter Care Teams Patient Observation Assistant Relationship Specialty Start Date End Date Stefan Arteaga MD PCP - General 10/13/14 03/18/19 documented as of this encounter
--- OUTSIDE RECORDS SUMMARY | 2023-12-17 15:27 | XMS_ITS | Encounter Summary ---
Author Organization [facility] [place] [address] Care Team Providers Care Telescope Maintenance Name Role Phone Candie Skaggs MD Primary Care Provider Reason for Referral * Consultation (Routine) - Closed Specialty Diagnoses / Procedures Referred By Contac t Referred To Contact Pain and Spine Center Diagnoses Bilateral hip pain Radiculopathy of lumbar region Lower extremity pain, left Lower extremity pain, right spine- BLE pain/ XR h/p 04/04/22 in Rkuhsana Berry PA [facility] [place] [address] [facility] [place] [address] Referral ID Status Reason Start Date Expiration Date V isits Requested Visits Authorized [id number] Closed Consult, Test & Treat 04/04/2022 04/04/2023 1 1 Reason for Visit * Reason Comments Establish Care BILATERAL HIP PAIN? * Consultation (Routine) - Closed Specialty Diagnoses / Procedures Referred By Contac t Referred To Contact Orthopaedics Diagnoses Bilateral hip pain Self mail [facility] [address] [place] [address] Referral ID Status Reason Start Date Expiration Date V isits Requested Visits Authorized [id number] Closed Consult, Test & Treat 03/07/2022 03/07/2023 1 1 Encounter Details Date Type Department Care Team (Late st Contact Info) Description 04/04/2022 4:00 PM EST Office [place] [address] Rukhsana Mills PA [facility] [place] [address] Bilateral hip pain (Primary Dx); Right hand [...] NAME: Abby Ruffin AGE: 86 y.o. MR#: [id number] DATE OF VISIT: 04/04/2022 CHIEF COMPLAINT: whole body pain HISTORY OF PRESENT ILLNESS: Ms. Ruffin is a 86 y.o. female who comes into clinic today for evaluation of the body. Family member, eGovanni, with her today. Has had 1 year [...] pain. Right hand dominant. No problem with fryer operator strength. Has shooting sensation right hand [...] and osteophytes present, nikki. Inferiorly. Reviewed with aRdhames. Assessment and plan:: 86 y.o. year-old female [...] who have questions please contact the health veterinarian laboratory animal care that requested your imaging first. ? [...] patients who have questions please contactthe health veterinarian laboratory animal care that requested your imaging first. Lino [...] who have questions please contact the health veterinarian laboratory animal care that requested your imaging first. ? Electronically signed by: Yolanda Tripp MD, [facility] ([phone]), at 04/05/2022 9:46 AM Narrative 04/05/2022 9:46 [...] patients who have questions please contactthe health veterinarian laboratory animal care that requested your imaging first. Lino [...] limb documented in this encounter Care Teams Telescope Maintenance Relationship Specialty Start Date End Date Candie Skaggs MD [address] [address] PCP - General Family Medicine 03/19/19 documented as of this encounter
--- OUTSIDE RECORDS SUMMARY | 2023-12-17 15:27 | XMS_ITS | Encounter Summary ---
Author Organization [facility] [place] [address] Care Team Providers Care Loom Inspector Name Role Phone Estee Novak APRN Primary Care Provider [phone] Encounter Details Date Type Department Care Team (Late st Contact Info) Description 07/30/2013 2:50 PM EDT Office Visit Dermatology at [address] [address] Noble Moseley MD [address] [facility] [place] [address] Squamous cell carcinoma (Primary Dx) Social History [...] - 07/30/2013 3:25 PM EDT Problem: Left scientology lesion. Abby is a 77-year-old woman who is referred today by Dr. 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 Apparently this was treated with LN2 about two years ago and did not resolve when she as down at [facility]. She has a history of a moderately [...] site documented in this encounter Care Teams Loom Inspector Relationship Specialty Start Date End Date Estee Novak APRN PCP - General 01/09/10 10/12/14 documented as of this encounter
--- OUTSIDE RECORDS SUMMARY | 2023-12-17 15:27 | XMS_ITS | Encounter Summary ---
Author Organization [facility] [place] [address] Care Team Providers Care Plumbing Service Technician Name Role Phone Kumar Schultz MD Primary Care Provider [phone] Reason for Visit * Reason Comments Abdominal Pain Fatigue * Auth/Cert (Routine) Specialty Diagnoses / Procedures Referred By Contac t Referred To Contact Diagnoses Upper abdominal pain Hypertensive [place] [address] [facility] Referral ID Status Reason Start Date Expiration Date Visits Re quested Visits Authorized [id number] 1 1 Encounter Details Date Type Department Care Team (Late st Contact Info) Description 10/13/2023 10:00 AM EDT - 10/13/2023 10:45 AM EDT [place] [address] Geovanni Bell MD [facility] [place] [address] EGD WITH BIOPSY (WRVU 2.39) Social History Tobacco Use Types Packs/Day Years Used Date Smoking Tobacco: Former Cigarettes 0.5 3 Smokeless Tobacco: Former Quit: 06/22/1979 Alcohol Use Standard Drinks/Week Comments Yes 2 (1 standard drink = 0.6 oz pur e alcohol) [facility] Utilities Answer Date Recorded In the [...] any time in the past [address] [facility], were you homeless or living in a group home (including now)? No 10/13/2023 DH IPV Inpatient [...] Nelsy Ruffin Patient Age: 87 y.o. Language: [place] R[place] Race: White Ethnicity: Not nor Admit date: [...] please contact your inpatient physician through the [facility] Postulant . Issues afterhours and on weekends will [...] found to have hypertensive emergency, admitted to [facility] for further management. CT Angiogram Chest Abdomen [...] 10/11/2023 3:44 PM) Result Value WORKSTATION ID [id number] Impression 1. No aortic dissection or acute [...] who have questions please contact the health adult care provider that requested your imaging first. 10/12 Impression: - Esophagogastric landmarks identified. 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 Biopsied. - Normal stomach. Biopsied. - [...] Covid-19 Vaccine 12/12/2020 Moderna Covid-19 Monovalent 12Yr+ (Upholsterer Helper 100mcg) 04/27/2021 Pneumococcal Polysaccharide (Pneumovax 23) 07/15/2012 TD Adult 02/03/2006 Tdap 07/15/2012 Typhoid Live, Oral 02/03/2006, 10/14/2014 Typhoid, VICP 04/15/2022 Zoster (Zostavax) LIVE 05/08/2009 Discharge Medications: Your Medications New Medications Dose Details amLODIPine 5 mg tablet Commonly known as: Norvasc Take 1 tablet by mouth daily. 5 mg Quantity: 90 tablet Refills: 3 pkcbdhxet-jqjipmrdi-ag-mag-sim [id number] mg/30 mL Suspension Take 5 mLs by [...] Your Primary Care Provider: Kumar Schultz MD [phone] For questions regarding this document or issues relating to this hospitalization on the Medical Service, please contact your inpatient physician through the [facility] Postulant . Issues afterhours and on weekends will [...] the day after the procedure, use an vdlh-wrd-wogngce spray to numb your throat. Sucking on [...] occurs, please contact your Doctor. Please call [phone] before 8pm Mon-Fri with problems, questions or concerns. If you call after 8pm or on weekends, call the Hospital at [phone] and ask to speak to the Tower Supervisor sec reporting consultant and the bottle washing machine operator will contact that person for [...] any problems. Where can you learn more? [facility] View your After Visit Summary and more online at [email or web address] If you would like to provide feedback about your hospital experience, please call the Office of Patient and Family Relations at . If you have received this After Visit Summary in error, please immediately return it in person to the department, or notify the [facility] Privacy Office by calling toll free at between the hours of 8AM and 5PM to arrange for our retrieval of the documents at no cost to you. Content Version: 12.2 ?? 5851-3049 [employer]. Care instructions adapted under license by [employer]. If you have questions about a medical condition or this instruction, always ask your healthcare professional. [employer] disclaims any warranty or liability for your [...] the day after the procedure, use an azgx-goz-vmwmwkj spray to numb your throat. Sucking on [...] occurs, please contact your Doctor. Please call [phone] before 8pm Mon-Fri with problems, questions or concerns. If you call after 8pm or on weekends, call the Hospital at [phone] and ask to speak to the Tower Supervisor sec reporting consultant and the bottle washing machine operator will contact that person for you. When should you call for help? Call [phone] anytime you think you may need emergency [...] any problems. Where can you learn more? [facility] View your After Visit Summary and more online at [email or web address] If you would like to provide feedback about your hospital experience, please call the Office of Patient and Family Relations at . If you have received this After Visit Summary in error, please immediately return it in person to the department, or notify the [facility] Privacy Office by calling toll free at between the hours of 8AM and 5PM to arrange for our retrieval of the documents at no cost to you. Content Version: 12.2 ?? 0517-0562 [employer]. Care instructions adapted under license by [facility]. If you have questions about a medical condition or this instruction, always ask your healthcare professional. [employer] disclaims any warranty or liability for your [...] the day after the procedure, use an qjms-osj-tnygcqh spray to numb your throat. Sucking on [...] occurs, please contact your Doctor. Please call [phone] before 8pm Mon-Fri with problems, questions or concerns. If you call after 8pm or on weekends, call the Hospital at [phone] and ask to speak to the Tower Supervisor sec reporting consultant and the bottle washing machine operator will contact that person for [...] any problems. Where can you learn more? [facility] View your After Visit Summary and more online at [email or web address] If you would like to provide feedback about your hospital experience, please call the Office of Patient and Family Relations at . If you have received this After Visit Summary in error, please immediately return it in person to the department, or notify the [facility] Privacy Office by calling toll free at between the hours of 8AM and 5PM to arrange for our retrieval of the documents at no cost to you. Content Version: 12.2 ?? 6117-2338 [employer]. Care instructions adapted under license by [employer]. If you have questions about a medical condition or this instruction, always ask your healthcare professional. [employer] disclaims any warranty or liability for your [...] the day after the procedure, use an lhxs-ani-uxpkvxc spray to numb your throat. Sucking on [...] occurs, please contact your Doctor. Please call [phone] before 8pm Mon-Fri with problems, questions or concerns. If you call after 8pm or on weekends, call the Hospital at [phone] and ask to speak to the Tower Supervisor sec reporting consultant and the bottle washing machine operator will contact that person for [...] any problems. Where can you learn more? [facility] View your After Visit Summary and more online at [email or web address] If you would like to provide feedback about your hospital experience, please call the Office of Patient and Family Relations at . If you have received this After Visit Summary in error, please immediately return it in person to the department, or notify the [facility] Privacy Office by calling toll free at between the hours of 8AM and 5PM to arrange for our retrieval of the documents at no cost to you. Content Version: 12.2 ?? 9302-5003 [employer]. Care instructions adapted under license by [employer]. If you have questions about a medical condition or this instruction, always ask your healthcare professional. [employer] disclaims any warranty or liability for your [...] Your Primary Care Provider: Kumar Schultz MD [phone] For questions regarding this document or issues relating to this hospitalization on the Medical Service, please contact your inpatient physician through the [facility] Postulant . Issues afterhours and on weekends will [...] Continuous Scheduled amLODIPine 5 mg Oral Daily mhibynyww-ydcxdjlhs-rb-mag-sim 5 mL Oral TID rivaroxaban 10 mg [...] of this encounter: 64.4 kg (142 lb). [place] Body Weight (IBW) (kg): 47.73 Wt Readings [...] interview: 10/12: Nutrition consulted for MST evaluation, communications writer met with Adriana and her at bedside. Adriana reports epigastric pain and nausea, relying on soup and toast for intake lately. She reports 8# weight loss in recent weeks, though unable to quantify UBW. Unsure what is causing epigastric pain, awaiting EGD results. Offered Ensure to supplement intake, trial sent. Nelsy notes GERD and avoiding spicy foods, tomato sauces, and other foods. Rug Dyer Helper also suggested follow up with outpatientRD (consider GI if followed up by GI clinic), pt to reach out to provider. Nutrition Focused Physical Exam: Performed (10/13/23 by HD) . Subcutaneous Fat Loss Orbital region: Mild Upper arm region (triceps/biceps): None present Thoracic and Lumbar regions (ribs, lower back, and maxillary line): Not assessed Lean Muscle Loss Baptist region (temporalis muscle): None present Clavicle bone [...] spent >30 minutes (Day of Discharge Code 90898) involved in the final examination of the [...] with a walker or standby assist with RN/FLUID DYNAMICIST.Patient will possibly have an EGD on 10/11. Pt. Has been NPO since midnight. Action List NPO since midnight Monitor epigastric discomfort Telemetry IVF EGD today * Valente Bhatt MD - 10/12/2023 11:17 AM EDT [facility] Medicine Attending Daily Progress Note Admit [...] Daily potassium chloride 10 mEq Intravenous Q2H ngfpyolrs-jvanapzox-ek-mag-sim 5 mL Oral BID losartan 100 mg [...] 10/11/2023 3:44 PM) Result Value WORKSTATION ID [id number] Impression 1. No aortic dissection or acute [...] who have questions please contact the health adult care provider that requested your imaging first. R Studies: Assessment: 87 y.o. female with history of HTN, HLD PE on Xarelto, Haque's esophagus, who presents to the ED,reporting a few day hx of worsening epigastric pain with radiation to her back associated with nausea, and inability to tolerate p.o. intake, found to have hypertensive emergency, admitted to [facility] for further management. GI team to take the pt for EGD tomorrow am. NPO at [place]. #NSTEMI likely type II i/s/o hypertensive emergency [...] Goals of Care: Team Pager( Coverage 09/09): #[phone] PCP: Kumar Schultz MD [phone] Attestation: IPI Certification I certify that I am a D-H credentialed attending provider with admitting privileges and that the patient meets or has met medical necessity to require an inpatient IPI level of care meeting a minimumof two midnights or is on the [facility] inpatient only procedure list (status C) [...] disease) K21.9 Hyperlipidemia E78.5 Squamous cell carcinoma [id number] History of SCC (squamous cell carcinoma) of [...] Covid-19 Vaccine 12/12/2020 Moderna Covid-19 Monovalent 12Yr+ (Upholsterer Helper 100mcg) 04/27/2021 Pneumococcal Polysaccharide (Pneumovax 23) 07/15/2012 [...] Negative Leukocytes, Urine Dipstick Negative Negative Specific [place] Urine Automated 1.007 1.005 - 1.030 Appearance, [...] found to have hypertensive emergency, admitted to [facility] for further management. #NSTEMI likely type II [...] Dipstick Negative Leukocytes, Urine Dipstick Negative Specific [place] Urine Automated 1.007 Appearance, Urine Dipstick Clear [...] 10/11/2023 3:44 PM) Result Value WORKSTATION ID [id number] Impression 1. No aortic dissection or acute [...] who have questions please contact the health adult care provider that requested your imaging first. Assessment/plan: Epigastric [...] months and has been seen at hospital lfd-cj-hfjvg for evaluation. She was told that she [...] are in agreement with plan. Renae Cooper [facility] [phone] * Initial Assessments - Renae Cooper RN [...] surrogate would be surrogate decision maker per [place] surrogate decision making law. (Only good for 180 days) spouse Geovanni Any patient receiving care in [place] must abide by [place] law. The hierarchy for surrogate decision making [...] (i) The agent with financial power of document review attorney or a conservator appointed in accordance [...] or living in a group home (including now)?: No In the past 12 months has the [employer], gas, oil, or water [employer] threatened to shut off services in your [...] DME: none Home Address confirmed as: [address] [facility] [address] Social & Family Supports: All names listed below confirmed with patient as current and correct Extended Emergency Contact Information Primary Emergency Contact: Geovanni Ruffin Address: [place] [address] [facility] Mobile Relation: Spouse Secondary Emergency Contact: Helga [...] Insurance: N/A ; Prescription Coverage: Preferred Pharmacy: [address] [address] [facility] [address] - [facility], [place] - [address] [facility] [address] [facility] [address] Status: Patient is a : No Primary Care Provider confirmed: Kumar Schultz MD [phone] Patient/Caregiver Goals of Treatment: return home Potential [...] coordination of care as indicated. [facility]ae Cooper [facility] [phone] * Consult Note - Xavi Monroe MD [...] nutrition in, so she presented to the [facility] ED. In the ED, she was afebrile [...] was normal. She last saw GI at [place] in 2021. Their plan was to put [...] Daily potassium chloride 10 mEq Intravenous Q2H fzcixoghq-jtptyrial-jw-mag-sim 5 mL Oral BID losartan 100 mg [...] who have questions please contact the health adult care provider that requested your imaging first. RECORDS: Obtained [...] proceed. 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 PLAN: Reasonable to obtain TTE tomorrow for assessment of pericardial effusion We will sign off at this time. Please feel free to reach out with further questions or concerns. Jono Campbell MD [facility] * ED Triage - Tex Purcell RN [...] :26 AM EDT Upper Gi Endoscopy, Biopsy ([id number]) 10/13/2023 10:13 AM EDT Wt loss UPPER [...] PM EDT URINALYSIS BEAKER MICROSCPIC REFLEX EXAM ([facility]) STAT 10/11/2023 2:54 PM EDT URINALYSIS MICROSCOPIC WITH REFLEX TO CULTURE STAT 10/11/2023 2:54 PM EDT URINALYSIS WITH REFLEX CULTURE STAT 10/11/2023 2:54 PM EDT EKG 12-LEAD STAT 10/11/2023 2:49 PM EDT documented in this encounter Results * Giardia/Cryptosporidium Antigens ([facility]/CGP/APD/[facility]) (10/13/2023 3:50 PM EDT) Giardia Antigen Negative Negative 12:31 PM EDT [facility] Cryptosporidium Antigen Negative Negative 10/14/2023 12:31 PM EDT [facility] Stool STOOL SPECIMEN / Unknown Non Blood Collection / Unknown 10/13/2023 3:50 PM EDT 10/13/2023 4:41 PM EDT Narrative [facility] - 10/14/2023 12:31 PM EDT Examination for other intestinal parasites requires foreign travel history. Examination for other intestinal parasites requires foreign travel history. Valente Bhatt MD MICROBIOLOGY - GEN ERAL ORDERABLES [facility] [place] [address] * ECHO COMPLETE (10/13/2023 12:52 PM EDT) EF 65 HEARTLAB SYSTEM Anatomical Region Laterality Modality Cardiac Other 10/13/2023 12:1 4 PM EDT Narrative 10/13/2023 1:18 PM EDT [address] [place] [address] ? Echocardiogram Report Name: LALY, NELSY F ?Study Date: 10/13/2023 12:14 PMBP: 160/72 mmHg ? Patient Location: L1WD 0118 A : 1935 ? Height: 155 cm ? Account: [id number] Age: 87 yrs ? Weight: 64 kg Gender: Female ?BSA: 1.6 m2 Ordering Physician: MORE OROZCO Performed By: LE Palomares Reason For Study: Hypertensive urgency Exam Location: [facility]. Interpretation Summary 1. 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 Procedure Complete-[id number]. Satisfactory quality. There is sinus bradycardia. Left [...] Note Eri Patino MD - 10/13/2023 1 [place] [address] Echocardiogram Report Name: NELSY RUFFIN Study Date: 2:14 PMBP: 160/72 mmHg Patient Location: [address] : 1935 Height: 155 cm Account: [id number] Age: 87 yrs Weight: 64 kg Gender: Female BSA: 1.6 m2 Ordering Physician: MORE OROZCO Performed By: LE Palomares Reason For Study: Hypertensive urgency Exam Location: [facility]. Interpretation Summary 1. 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 Procedure Complete-18235. Satisfactory quality. There is sinus bradycardia. Left [...] Case Report Surgical Pathology Report ? Case: [id number] ? Authorizing Provider: ??Geovanni Bell MD ?Collected: ? 10/13/2023 1026 ? Ordering Location: ? Gastroenterology at [facility] ?? Received: ?10/13/2023 125 ? Pathologist: ? Judie Ovalle MD ? Specimens: ?? A) - Esophagus, esophagus at 37cm ? B) - Stomach ? C) - Small Bowel, Duodenum ? 10/17/2023 12:27 PM [facility] Final Diagnosis A. Esophagus, esophagus at 37cm Biopsy: Cardia- and fundic-type mucosa with focal intestinal metaplasia, negative for dysplasia (see Discussion). B. Stomach, Biopsy: Gastric fundic and antral gland mucosa with mild chronic nonspecific gastritis. C. Small Bowel, Duodenum, Biopsy: Duodenal mucosa within normal limits, including preserved villous architecture. 10/17/2023 12:27 PM [facility] Discussion A - The findings are compatible with Haque esophagus in the appropriate endoscopic setting. 10/17/2023 12:27 PM [facility] Additional Studies Task ID IHC/Special Stains Result Comments B1-2 H pylori Negative 10/17/2023 12:27 PM [facility] Disclaimer(s) Formalin-fixed, paraffin-embedded tissue sections [...] and other diagnostic tests. 10/17/2023 12:27 PM [facility] Clinical Information A. Esophagus, esophagus at 37cm Rule out Haque's B. Stomach, Rule out Helicobacter pylori C. Small Bowel, Duodenum, Rule out celiac 10/17/2023 12:27 PM [facility] Gross Description A. Esophagus, esophagus [...] cassette labeled C1. 10/17/2023 12:27 PM EDT [facility] Result Note Routine 10/17/2023 12:27 PM EDT [facility] Tissue ESOPHAGEAL STRUCTURE [...] loss Geovanni Bell MD PATHOLOGY/CYTOLOGY O RDERABLES [facility] [place] [address] * UPPER GI ENDOSCOPY (10/13/2023 9:44 AM EDT) UPPER GI ENDOSCOPY [facility] Endoscopy ___ Procedure Date: 10/13/2023 9:44 AM ? Patient Name: Nelsy Ruffin ? Date of : 1935 ? Age: 87 ? Order #: [id number] ? Instrument Name: [id number]- [id number] ? ___ Procedure: ? Upper GI endoscopy [...] classified as Haque's stage C0-M1 ? per [place] criteria. Biopsied. ? - Normal stomach. Biopsied. [...] GENERAL SURGICAL O RDERABLES Performing Organization Address [facility]/ZIP Co de Phone Number [employer] * Magnesium (10/13/2023 4:07 AM EDT) Magnesium 0.76 0.69 - 1.07 mMol/L 10/13/2023 4:55 AM EDT [facility] Blood VENOUS BLOOD SPECIMEN / Unknown IP Care Team Draw / Unknown 10/13/2023 4:07 AM EDT 10/13/2023 4:23 AM EDT More Orozco MD CHEMISTRY ORDERABLES Performing Organization Address [facility]/ZIP Co de Phone Number [facility] [place] [address] * (ABNORMAL) Basic Metabolic Panel (10/13/2023 4:07 AM EDT) Glucose 115 65 - 199 mg/dL 10/13/2023 4:55 AM EDT [facility] Comment:Glucose Concentratio n >=200 mg/dL plus symptoms is consistent with Diabetes Mellitus. Blood Urea Nitrogen 10 8 - 18 mg/dL 10/13/2023 4:55 AM [facility] Creatinine 0.95 0.70 - 1.20 mg/dL 10/13/2023 4:55 AM [facility] Sodium 142 135 - 145 mMol/L 10/13/2023 4:55 AM [facility] Potassium 3.2(L) 3.5 - 5.0 mMol/L 10/13/2023 4:55 AM [facility] Chloride 109(H) 98 - 107 mMol/L 10/13/2023 4:55 AM [facility] Carbon Dioxide 20(L) 22 - 31 mMol/L 10/13/2023 4:55 AM [facility] Anion Gap 13 5 - 15 mMol/L 10/13/2023 4:55 AM [facility] Calcium 9.3 8.5 - 10.5 mg/dL 10/13/2023 4:55 AM [facility] Est Glomerular Filtration Rate - Female 58 mL/min/1. 73 m?? 10/13/2023 4:55 AM [facility] Comment: This patient's estimated GFR was [...] AM EDT More Orozco MD CHEMISTRY ORDERABLES [facility] [place] [address] * (ABNORMAL) CBC (with Diff) (10/13/2023 4:07 AM EDT) White Blood Cell 6.31 4.00 - 9.50 x10(3)/mc L 10/13/2023 4:30 AM EDT [facility] Red Blood Cell 3.68(L) 4.00 - 5.21 x10(6)/mc L 10/13/2023 4:30 AM EDT [facility] Hemoglobin 11.8 11.7 - 15.5 g/dL 10/13/2023 4:30 AM [facility] Hematocrit 34.6(L) 35.7 - 45.8 % 10/13/2023 4:30 AM [facility] Mean Cell Volume 94.0 82.6 - 94.4 fL 10/13/2023 4:30 AM [facility] Mean Cell Hemoglobin 32.1(H) 27.1 - 32.0 pg 10/13/2023 4:30 AM [facility] Mean Cell Hemoglobin Concentration 34.1 31.7 - 35.0 g/dL 10/13/2023 4:30 AM [facility] Platelet 240 145 - 357 x10(3)/mc L 10/13/2023 4:30 AM [facility] Mean Platelet Volume 10.3 7.6 - 12.9 fL 10/13/2023 4:30 AM [facility] RDW Standard Deviation 43.8 37.0 - 46.0 fL 10/13/2023 4:30 AM [facility] RDW coefficient of variation 12.8 11.5 - 14.1 % 10/13/2023 4:30 AM [facility] NRBC% auto 0.0 % 10/13/2023 4:30 AM [facility] NRBC Absolute 0.00 0.00 - 0.00 x10(3)/mc L 10/13/2023 4:30 AM EDT [facility] Neutrophil % 65.4 % 10/13/2023 4:30 AM EDT [facility] Neutrophil Absolute (ANC) - Automated 4.13 1.70 - 6.10 x10(3)/mc L 10/13/2023 4:30 AM EDT [facility] Lymph % 26.1 % 10/13/2023 4:30 AM EDT [facility] Lymph Absolute 1.65 0.90 - 3.20 x10(3)/mc L 10/13/2023 4:30 AM EDT [facility] Monocyte % 6.2 % 10/13/2023 4:30 AM EDT [facility] Monocyte Absolute 0.39 0.30 - 0.90 x10(3)/mc L 10/13/2023 4:30 AM EDT [facility] Eos % 1.6 % 10/13/2023 4:30 AM EDT [facility] Eos Absolute 0.10 0.00 - 0.40 x10(3)/mc L 10/13/2023 4:30 AM EDT [facility] Basophil % 0.5 % 10/13/2023 4:30 AM EDT [facility] Baso Absolute 0.03 0.00 - 0.10 x10(3)/mc L 10/13/2023 4:30 AM EDT [facility] Immature Gran % 0.2 % 4:30 AM EDT [facility] Immature Gran Absolute 0.01 0.00 - 0.04 x10(3)/mc L 10/13/2023 4:30 AM EDT [facility] Blood VENOUS BLOOD SPECIMEN / Unknown IP Care Team Draw / Unknown 10/13/2023 4:07 AM EDT 10/13/2023 4:23 AM EDT More Orozco MD HEMATOLOGY ORDERABLE S [facility] [place] [address] * Magnesium (10/12/2023 5:09 AM EDT) Pathologist [facility] Magnesium 0.78 0.69 - 1.07 mMol/L 10/12/2023 5:46 AM EDT [facility] Blood VENOUS BLOOD SPECIMEN / Unknown IP Care Team Draw / Unknown 10/12/2023 5:09 AM EDT 10/12/2023 5:17 AM EDT More Orozco MD CHEMISTRY ORDERABLES [facility] [place] [address] * (ABNORMAL) Basic Metabolic Panel (10/12/2023 5:09 AM EDT) Pathologist [facility] Glucose 104 65 - 199 mg/dL 10/12/2023 6:08 AM EDT [facility] Comment:Glucose Concentratio n >=200 mg/dL plus symptoms is consistent with Diabetes Mellitus. Blood Urea Nitrogen 12 8 - 18 mg/dL 10/12/2023 6:08 AM EDT [facility] Creatinine 0.91 0.70 - 1.20 mg/dL 10/12/2023 6:08 AM EDT [facility] Sodium 143 135 - 145 mMol/L 10/12/2023 6:08 AM EDT [facility] Potassium 3.0(LLL) 3.5 - 5.0 mMol/L 10/12/2023 6:08 AM EDT [facility] Chloride 109(H) 98 - 107 mMol/L 10/12/2023 6:08 AM EDT [facility] Carbon Dioxide 23 22 - 31 mMol/L 10/12/2023 6:08 AM EDT [facility] Anion Gap 11 5 - 15 mMol/L 10/12/2023 6:08 AM EDT [facility] Calcium 9.1 8.5 - 10.5 mg/dL 10/12/2023 6:08 AM EDT [facility] Est Glomerular Filtration Rate - Female 61 mL/min/1. 73 m?? 10/12/2023 6:08 AM EDT [facility] Comment: This patient's [...] AM EDT More Orozco MD CHEMISTRY ORDERABLES [facility] [place] [id number] * (ABNORMAL) CBC (with Diff) (10/12/2023 5:09 AM EDT) White Blood Cell 5.10 4.00 - 9.50 x10(3)/mc L 10/12/2023 5:21 AM EDT [facility] Red Blood Cell 3.51(L) 4.00 - 5.21 x10(6)/mc L 10/12/2023 5:21 AM EDT [facility] Hemoglobin 11.3(L) 11.7 - 15.5 g/dL 10/12/2023 5:21 AM EDT [facility] Hematocrit 33.2(L) 35.7 - 45.8 % 10/12/2023 5:21 AM EDT [facility] Mean Cell Volume 94.6(H) 82.6 - 94.4 fL 10/12/2023 5:21 AM [facility] Mean Cell Hemoglobin 32.2(H) 27.1 - 32.0 pg 10/12/2023 5:21 AM [facility] Mean Cell Hemoglobin Concentration 34.0 31.7 - 35.0 g/dL 10/12/2023 5:21 AM [facility] Platelet 229 145 - 357 x10(3)/mc L 10/12/2023 5:21 AM [facility] Mean Platelet Volume 10.2 7.6 - 12.9 fL 10/12/2023 5:21 AM [facility] RDW Standard Deviation 43.5 37.0 - 46.0 fL 10/12/2023 5:21 AM [facility] RDW coefficient of variation 12.7 11.5 - 14.1 % 10/12/2023 5:21 AM [facility] NRBC% auto 0.0 % 10/12/2023 5:21 AM [facility] NRBC Absolute 0.00 0.00 - 0.00 x10(3)/mc L 10/12/2023 5:21 AM [facility] Neutrophil % 54.2 % 10/12/2023 5:21 AM [facility] Neutrophil Absolute (ANC) - Automated 2.77 1.70 - 6.10 x10(3)/mc L 10/12/2023 5:21 AM [facility] Lymph % 35.9 % 10/12/2023 5:21 AM [facility] Lymph Absolute 1.83 0.90 - 3.20 x10(3)/mc L 10/12/2023 5:21 AM [facility] Monocyte % 7.3 % 10/12/2023 5:21 AM [facility] Monocyte Absolute 0.37 0.30 - 0.90 x10(3)/mc L 10/12/2023 5:21 AM [facility] Eos % 1.8 % 10/12/2023 5:21 AM EDT [facility] Eos Absolute 0.09 0.00 - 0.40 x10(3)/mc L 10/12/2023 5:21 AM EDT [facility] Basophil % 0.6 % 10/12/2023 5:21 AM EDT [facility] Baso Absolute 0.03 0.00 - 0.10 x10(3)/mc L 10/12/2023 5:21 AM EDT [facility] Immature Gran % 0.2 % 5:21 AM EDT [facility] Immature Gran Absolute 0.01 0.00 - 0.04 x10(3)/mc L 10/12/2023 5:21 AM EDT [facility] Blood VENOUS BLOOD SPECIMEN / Unknown IP Care Team Draw / Unknown 10/12/2023 5:09 AM EDT 10/12/2023 5:17 AM EDT More Orozco MD HEMATOLOGY ORDERABLE S [facility] [place] [address] * (ABNORMAL) Hepatic Function Panel (10/12/2023 5:09 AM EDT) Albumin 3.9 3.2 - 5.2 g/dL 10/12/2023 5:46 AM EDT [facility] Aspartate Aminotransferase 15 <=30 unit/L 10/12/2023 5:46 AM EDT [facility] Alanine Aminotransferase 14 0 - 30 unit/L 10/12/2023 5:46 AM EDT [facility] Alkaline Phosphatase 46 35 - 105 unit/L 10/12/2023 5:46 AM EDT [facility] Bilirubin, Total 1.4(H) <=1.3 mg/dL 10/12/2023 5:46 AM EDT [facility] Bilirubin, Direct 0.2 0.0 - 0.3 mg/dL 10/12/2023 5:46 AM EDT [facility] Protein, Total 6.3 6.1 - 8.0 g/dL 10/12/2023 5:46 AM EDT [facility] Blood VENOUS BLOOD SPECIMEN / Unknown IP Care Team Draw / Unknown 10/12/2023 5:09 AM EDT 10/12/2023 5:17 AM EDT More Orozco MD CHEMISTRY ORDERABLES [facility] [place] [address] * Phosphorus (10/12/2023 5:09 AM EDT) Phosphorus 3.4 2.5 - 4.5 mg/dL 10/12/2023 5:46 AM EDT [facility] Blood VENOUS BLOOD SPECIMEN / Unknown IP Care Team Draw / Unknown 10/12/2023 5:09 AM EDT 10/12/2023 5:17 AM EDT oMre Orozco MD CHEMISTRY ORDERABLES Performing Organization Address City/[facility]/ZIP Co de Phone Number [facility] [place] [address] * TSH (10/11/2023 6:17 PM EDT) Thyroid Stimulating Hormone 1.63 0.27 - 4.20 mcIU/mL 10/12/2023 1:15 AM EDT [facility] Comment: Reference Interval (mcIU/mL): ?? Females: ? First Trimester: 0.23-3.88 ? Second Trimester: 0.22-3.90 ? Third Trimester: 0.44-4.66 Blood VENOUS BLOOD SPECIMEN / Unknown IP Care Team Draw / Unknown 10/11/2023 6:17 PM EDT 10/11/2023 6:23 PM EDT More Orozco MD CHEMISTRY ORDERABLES [facility] [place] [address] * Lipase (10/11/2023 6:17 PM EDT) Pathologist [facility] Lipase 29 0 - 60 unit/L 10/12/2023 1:15 AM EDT [facility] Blood VENOUS BLOOD SPECIMEN / Unknown IP Care Team Draw / Unknown 10/11/2023 6:17 PM EDT 10/11/2023 6:23 PM EDT More Orozco MD CHEMISTRY ORDERABLES Performing Organization Address City/[facility]/ZIP Co de Phone Number [facility] [place] [address] * (ABNORMAL) Troponin-T, Joseph Sensitivity 3 Hour (10/11/2023 6:17 PM EDT) Pathologist [facility] Troponin-T, High Sensitivity 15(H) <=14 ng/L 10/11/2023 6:52 PM EDT [facility] Comment: This patient's [...] troponin value can be found in the [facility] Test Catalog Troponin - https://[email or web address]-.testcatalog.org/catalogs/565/files/[email or web address] Reference: Fourth [place] Definition of Myocardial Infarction. Journal of the [place] [employer] 2018;72:1846-0200 Troponin-T, HS 3 hr delta 2 ng/L 10/11/2023 6:52 PM EDT [facility] Comment:The 3 hour [...] PM EDT Karla Faria MD CHEMISTRY ORDERABLES [facility] [place] [address] * (ABNORMAL) Troponin-T, High Sensitivity 1 Hour (10/11/2023 3:59 PM EDT) Troponin-T, High Sensitivity 16(H) <=14 ng/L 10/11/2023 4:32 PM EDT [facility] Comment: This patient's [...] troponin value can be found in the [facility] Test Catalog Troponin - https://[email or web address]-.testcatalog.org/catalogs/565/files/[email or web address] Reference: Fourth [place] Definition of Myocardial Infarction. Journal of the [place] [employer] 2018;72:6940-1591 Troponin-T, HS 1 hr delta 1 ng/L 10/11/2023 4:32 PM EDT [facility] Comment:The 1 hour Troponin T delta value is the absolute difference between the Troponin T concentrations of the initial and subsequent sample collected between 45 - 120 minutes following the initial collection. Blood VENOUS BLOOD SPECIMEN / Unknown Venipuncture / Unknown 10/11/2023 3:59 PM EDT 10/11/2023 4:05 PM EDT Karla Faria MD CHEMISTRY ORDERABLES [facility] [place] [address] * CT Angiogram Chest Abdomen Pelvis w Contrast (10/11/2023 3:44 PM EDT) C$ [employer] WORKSTATION ID [id number] [facility] Anatomical Region Laterality Modality Abdomen, Chest Computed [...] who have questions please contact the health adult care provider that requested your imaging first. ? Narrative [...] and of normal caliber. No dissection. Scattered [id number] atheromatous plaque is noted. Celiac: Patent. No [...] and of normal caliber. No dissection. Scattered [id number] atheromatous plaque is noted. Celiac: Patent. No [...] patients who have questions please contactthe health adult care provider that requested your imaging first. Karla Faria MD IMG CT ORDERABLES * (ABNORMAL) Hemoglobin A1c (10/11/2023 3:01 PM EDT) Hemoglobin A1c 6.1(H) 4.3 - 5.6 % 10/12/2023 1:06 AM EDT [facility] Comment: Per ADA [...] red blood cell turnover may not be underwriting account representative of glycemic control. Reference Interval: 4.3 - 5.6% 5.7 - 6.4%: Consistent with prediabetes >=6.5%: Consistent with diagnosis of diabetes mellitus Estimated Average Glucose 10/12/2023 1:06 AM EDT [facility] Comment:Not Calculated. Blood VENOUS BLOOD SPECIMEN / Unknown Venipuncture / Unknown 10/11/2023 3:01 PM EDT 10/11/2023 3:09 PM EDT [facility] - 10/12/2023 1:06 AM EDT Estimated average glucose (eAG) is calculated from the equation described in: Malvin DM, Jamal J, Janina R, et al. ??Translating the A1C assay into estimated average glucose values. ??Diabetes Care 2008:31(8):5683-7597. Additional resources are available on the ADA website (diabetes.org). More Orozco MD CHEMISTRY ORDERABLES [facility] [place] [address] * (ABNORMAL) Troponin-T, High Sensitivity (10/11/2023 3:01 PM EDT) Pathologist [facility] Troponin-T, High Sensitivity Initial 17(H) <=14 ng/L 10/11/2023 3:53 PM EDT [facility] Comment: This patient's [...] troponin value can be found in the [facility] Test Catalog Troponin - https://[email or web address].[email or web address]/catalogs/565/files/[email or web address] Reference: Fourth [place] Definition of Myocardial Infarction. Journal of the [place] College [employer] Cardiology 2018;72:1591-7631 Blood VENOUS BLOOD SPECIMEN / Unknown Venipuncture / Unknown 10/11/2023 3:01 PM EDT 10/11/2023 3:09 PM EDT Karla Faria MD CHEMISTRY ORDERABLES Performing Organization Address City/[facility]/ZIP Co de Phone Number [facility] [place] [address] * Lipase (10/11/2023 3:01 PM EDT) Lipase 35 0 - 60 unit/L 10/11/2023 3:53 PM EDT [facility] Blood VENOUS BLOOD SPECIMEN / Unknown Venipuncture / Unknown 10/11/2023 3:01 PM EDT 10/11/2023 3:09 PM EDT Karla Faria MD CHEMISTRY ORDERABLES Performing Organization Address City/[facility]/ZIP Co de Phone Number [facility] [place] [address] * Hepatic Function Panel (10/11/2023 3:01 PM EDT) Albumin 4.2 3.2 - 5.2 g/dL 10/11/2023 3:53 PM EDT [facility] Aspartate Aminotransferase 16 <=30 unit/L 10/11/2023 3:53 PM EDT [facility] Alanine Aminotransferase 16 0 - 30 unit/L 10/11/2023 3:53 PM EDT [facility] Alkaline Phosphatase 51 35 - 105 unit/L 10/11/2023 3:53 PM EDT [facility] Bilirubin, Total 1.1 <=1.3 mg/dL 10/11/2023 3:53 PM EDT [facility] Bilirubin, Direct 0.2 0.0 - 0.3 mg/dL 10/11/2023 3:53 PM EDT [facility] Protein, Total 7.1 6.1 - 8.0 g/dL 10/11/2023 3:53 PM EDT [facility] Blood VENOUS BLOOD SPECIMEN / Unknown Venipuncture / Unknown 10/11/2023 3:01 PM EDT 10/11/2023 3:09 PM EDT Karla Faria MD CHEMISTRY ORDERABLES [facility] [place] [address] * (ABNORMAL) Basic Metabolic Panel (10/11/2023 3:01 PM EDT) Glucose 105 65 - 199 mg/dL 10/11/2023 3:53 PM EDT [facility] Comment:Glucose Concentratio n >=200 mg/dL plus symptoms is consistent with Diabetes Mellitus. Blood Urea Nitrogen 14 8 - 18 mg/dL 10/11/2023 3:53 PM EDT [facility] Creatinine 0.91 0.70 - 1.20 mg/dL 10/11/2023 3:53 PM EDT [facility] Sodium 144 135 - 145 mMol/L 10/11/2023 3:53 PM EDT [facility] Potassium 3.1(L) 3.5 - 5.0 mMol/L 10/11/2023 3:53 PM EDT [facility] Chloride 107 98 - 107 mMol/L 10/11/2023 3:53 PM EDT [facility] Carbon Dioxide 23 22 - 31 mMol/L 10/11/2023 3:53 PM EDT [facility] Anion Gap 14 5 - 15 mMol/L 10/11/2023 3:53 PM EDT [facility] Calcium 9.9 8.5 - 10.5 mg/dL 10/11/2023 3:53 PM EDT [facility] Est Glomerular Filtration Rate - Female 61 mL/min/1. 73 m?? 10/11/2023 3:53 PM EDT [facility] Comment: This patient's [...] PM EDT Karla Faria MD CHEMISTRY ORDERABLES [facility] [place] [address] * (ABNORMAL) CBC (with Diff) (10/11/2023 3:01 PM EDT) White Blood Cell 6.04 4.00 - 9.50 x10(3)/mc L 10/11/2023 3:28 PM [facility] Red Blood Cell 3.72(L) 4.00 - 5.21 x10(6)/mc L 10/11/2023 3:28 PM [facility] Hemoglobin 12.0 11.7 - 15.5 g/dL 10/11/2023 3:28 PM [facility] Hematocrit 34.5(L) 35.7 - 45.8 % 10/11/2023 3:28 PM [facility] Mean Cell Volume 92.7 82.6 - 94.4 fL 10/11/2023 3:28 PM [facility] Mean Cell Hemoglobin 32.3(H) 27.1 - 32.0 pg 10/11/2023 3:28 PM [facility] Mean Cell Hemoglobin Concentration 34.8 31.7 - 35.0 g/dL 10/11/2023 3:28 PM [facility] Platelet 246 145 - 357 x10(3)/mc L 10/11/2023 3:28 PM [facility] Mean Platelet Volume 10.3 7.6 - 12.9 fL 10/11/2023 3:28 PM [facility] RDW Standard Deviation 43.2 37.0 - 46.0 fL 10/11/2023 3:28 PM [facility] RDW coefficient of variation 12.6 11.5 - 14.1 % 10/11/2023 3:28 PM [facility] NRBC% auto 0.0 % 10/11/2023 3:28 PM [facility] NRBC Absolute 0.00 0.00 - 0.00 x10(3)/mc L 10/11/2023 3:28 PM [facility] Neutrophil % 67.7 % 10/11/2023 3:28 PM [facility] Neutrophil Absolute (ANC) - Automated 4.09 1.70 - 6.10 x10(3)/mc L 10/11/2023 3:28 PM EDT [facility] Lymph % 25.5 % 10/11/2023 3:28 PM EDT [facility] Lymph Absolute 1.54 0.90 - 3.20 x10(3)/mc L 10/11/2023 3:28 PM EDT [facility] Monocyte % 5.6 % 10/11/2023 3:28 PM EDT [facility] Monocyte Absolute 0.34 0.30 - 0.90 x10(3)/mc L 10/11/2023 3:28 PM EDT [facility] Eos % 0.5 % 10/11/2023 3:28 PM EDT [facility] Eos Absolute 0.03 0.00 - 0.40 x10(3)/mc L 10/11/2023 3:28 PM EDT [facility] Basophil % 0.5 % 10/11/2023 3:28 PM EDT [facility] Baso Absolute 0.03 0.00 - 0.10 x10(3)/mc L 10/11/2023 3:28 PM EDT [facility] Immature Gran % 0.2 % 3:28 PM EDT [facility] Immature Gran Absolute 0.01 0.00 - 0.04 x10(3)/mc L 10/11/2023 3:28 PM EDT [facility] Blood VENOUS BLOOD SPECIMEN / Unknown Venipuncture / Unknown 10/11/2023 3:01 PM EDT 10/11/2023 3:09 PM EDT Karla Faria MD HEMATOLOGY ORDERABLE S [facility] [place] [address] * (ABNORMAL) Urinalysis Microscopic Reflex to Culture (10/11/2023 2:54 PM EDT) Bacteria, Urine None None /HPF 3:52 PM EDT [facility] RBC, Urine 5(H) 0 - 4 /HPF 10/11/2023 3:52 PM EDT [facility] WBC, Urine 0 0 - 5 /HPF 10/11/2023 3:52 PM EDT [facility] Squamous Epithelial Cells, Urine 1 <5 /HPF 10/11/2023 3:52 PM EDT [facility] Hyaline Casts, Urine 0 0 - 2 /LPF 10/11/2023 3:52 PM EDT [facility] Comment 10/11/2023 3:52 PM EDT [facility] Comment:Interpret results wi th caution, microscopic results are from a suboptimal specimen. Urine URINE SPECIMEN OBTAINED BY CLEAN CATCH PROCEDURE / Unknown Non Blood Collection / Unknown 10/11/2023 2:54 PM EDT 10/11/2023 3:09 PM EDT Karla Faria MD URINE ORDERABLES Performing Organization Address City/[facility]/ZIP Co de Phone Number [facility] [place] [address] * Urinalysis Microscopic with Reflex to Culture (10/11/2023 2:54 PM EDT) Urine URINE SPECIMEN OBTAINED BY CLEAN CATCH PROCEDURE / Unknown Non Blood Collection / Unknown 10/11/2023 2:54 PM EDT 10/11/2023 3:09 PM EDT Karla Faria MD URINE ORDERABLES [facility] [place] [address] * (ABNORMAL) Urinalysis with reflex Culture (10/11/2023 2:54 PM EDT) Glucose, Urine Dipstick Negative Negative 10/11/2023 3:52 PM EDT [facility] Protein, Urine Dipstick Negative Negative 10/11/2023 3:52 PM EDT [facility] Bilirubin, Urine Dipstick Negative Negative 10/11/2023 3:52 PM EDT [facility] Comment:Clinical correlation required for positive Urine Bilirubin results as false positive may occur with some drugs and drug related products. If a false positive is suspected a serum total bilirubin should be considered if clinically indicated. Urobilinogen, Urine Dipstick Normal Normal, 0.2 mg/dL, 1.0 mg/dL 10/11/2023 3:52 PM EDT [facility] pH, Urine (dipstick) 7.0 5.0 - 8.0 10/11/2023 3:52 PM EDT [facility] Blood, Urine Dipstick Moderate(A) Negative 10/11/2023 3:52 PM EDT [facility] Ketone, Urine Dipstick Negative Negative 10/11/2023 3:52 PM EDT [facility] Nitrite, Urine Dipstick Negative Negative 10/11/2023 3:52 PM EDT [facility] Leukocytes, Urine Dipstick Negative Negative 10/11/2023 3:52 PM EDT [facility] Specific [place] Urine Automated 1.007 1.005 - 1.030 10/11/2023 3:52 PM EDT [facility] Appearance, Urine Dipstick Clear Clear 10/11/2023 3:52 PM EDT [facility] Color, Urine Dipstick Yellow Yellow, Dark Yellow 10/11/2023 3:52 PM EDT [facility] Urine URINE SPECIMEN OBTAINED BY CLEAN CATCH PROCEDURE / Unknown Non Blood Collection / Unknown 10/11/2023 2:54 PM EDT 10/11/2023 3:09 PM EDT Karla Faria MD URINE ORDERABLES [facility] [place] [address] * EKG 12 Lead (10/11/2023 2:49 PM EDT) Ventricular rate 53 BPM MUSE SYSTEM Atrial Rate 53 BPM MUSE SYSTEM P-R Interval 176 ms MUSE SYSTEM QRS Duration 70 ms MUSE SYSTEM Q-T Interval 428 ms MUSE SYSTEM QTC Calculated (Bezet) 401 ms MUSE SYSTEM Calculated P [place] 65 degrees MUSE SYSTEM Calculated R [place] 6 degrees MUSE SYSTEM Calculated T [place] 51 degrees MUSE SYSTEM INTERPRETATION Sinus bradycardia [...] Blood Pressure, for SBP > 170 0957 ([facility] Hold - Provider: Admin Adt - Reason: Transfer to a Procedural area)1132 ([facility] Unhold - Provider: Admin Adt) iohexoL (Omnipaque) [...] for discomfort with PIV insertion, Routine 0957 ([facility] Hold - Provider: Admin Adt - Reason: Transfer to a Procedural area)1132 ([facility] Unhold - Provider: Admin Adt) melatonin tablet 3 mg 3 mg, Oral, NIGHTLY PRN, Starting on 10/11/23 at 2327, Until 10/13/23 at 1957, Sleep, Sleep, Routine 0957 ([facility] Hold - Provider: Admin Adt - Reason: Transfer to a Procedural area)1132 ([facility] Unhold - Provider: Admin Adt) ondansetron (pf) [...] if ineffective use prochlorperazine second line. 09 ([facility] Hold - Provider: Admin Adt - Reason: Transfer to a Procedural area)1132 ([facility] Unhold - Provider: Admin Adt) prochlorperazine (Compazine) (5 mg/mL) injection 10 mg(Linked Group 1) 10 mg, Intravenous, EVERY 6 HOURS PRN, Starting on 10/12/23 at 0450, Until 10/13/23 at 1957, Nausea, Vomiting, Use ondansetron first line and if ineffective use prochlorperazine second line., Routine 09 ([facility] Hold - Provider: Admin Adt - Reason: Transfer to a Procedural area)1132 ([facility] Unhold - Provider: Admin Adt) prochlorperazine (Compazine) tablet 10 mg(Linked Group 1) 10 mg, Oral, EVERY 6 HOURS PRN, Starting on 10/12/23 at 0450, Until 10/13/23 at 1957, Nausea, Use ondansetron first line and if ineffective use prochlorperazine second line. Maximum dose: 50 mg / 24 hrs, Routine 956 ([facility] Hold - Provider: Admin Adt - Reason: Transfer to a Procedural area)1132 ([facility] Unhold - Provider: Admin Adt) sodium chloride 0.9 % (flush) (BD PosiFlush Normal Saline 0.9) flush 5-20 mL 5-20 mL, Intravenous, EVERY 1 MIN PRN, Starting on 10/11/23 at 2327, Until 10/13/23 at 1957, flush, Flush pertains to all indwelling lines. Flush per protocol found in the job aid using the link provided on this medication record., Routine 956 ([facility] Hold - Provider: Admin Adt - Reason: Transfer to a Procedural area)1132 ([facility] Unhold - Provider: Admin Adt) Linked [...] Routine documented in this encounter Care Teams Plumbing Service Technician Relationship Specialty Start Date End Date Kumar Schultz MD [address] [place] [address] PCP - General Family Medicine 03/19/19 documented as of this encounter
--- OUTSIDE RECORDS SUMMARY | 2023-12-17 15:27 | XMS_ITS | Encounter Summary ---
Author Organization [facility] [place] [address] Care Team Providers Care Nuclear Medical Tech Name Role Phone Candie Skaggs MD Primary Care Provider [phone] Encounter Details Date Type Department Care Team (Latest Contact Info) Description 07/05/2021 10:45 AM EDT Office Visit Hematology [place] [phone] Audra Fields MD [facility] [place] [address] Other pulmonary embolism without acute cor pulmonale, [...] is not averse to continuing for the residential. 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 LABORATORY STUDIES From 06-22-[address] [facility] (scanned in eDH) Unremarkable CBC BUN/CR /.1 Normal LFTs RADIOGRAPHIC STUDIES Reviewed above. Reports scanned. IMPRESSION Abby Ruffin is a 85 y.o. 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 She's doing well with low dose rivaroxaban anticoagulation and is a good candidate for continuing for the residential. PLAN/RECOMMENDATIONS I reviewed my impression with Abby and Geovanni. I reviewed the difference between an unprovoked VTE event and one that may have been precipitated by temporary risk factors (e.g., surgery, trauma, travel, hospitalization, immobilization) and discussed the additive nature of factors such as hereditary or acquired thrombophilia (e.g., factor V Leiden, PT [id number]), ABO blood type (non-O > O), dehydration, [...] daily which is the FDA-approved dose for residential VTE prevention. 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 She is perfectly amenable tothat approach. The risk/benefit calculation for continuing with anticoagulation may pipe changer time, however, and should be revisited [...] In summary: ?? Continue rivaroxaban for the residential with periodic review of risk/benefit. ?? The 10 mg once daily dose is appropriate for residential secondary prevention ?? Seek medical attention for [...] should the need arise. Audra Fields MD Control Director, [facility] documented in this encounter Plan of Treatment Not on file documented as of this encounter Visit Diagnoses Diagnosis Other pulmonary embolism without acute cor pulmonale, unspecified chronicity Anticoagulated by anticoagulation treatment Encounter for long-term (current) use of anticoagulants documented in this encounter Care Teams Nuclear Medical Tech Relationship Specialty Start Date End Date Candie Skaggs MD [address] [place] [address] PCP - General Family Medicine 03/19/19 documented as of this encounter
--- OUTSIDE RECORDS SUMMARY | 2023-12-17 15:27 | XMS_ITS | Encounter Summary ---
Author Organization [facility] [place] [address] Care Team Providers Care Felt Strip Finisher Name Role Phone Candie Skaggs MD Primary Care Provider Encounter Details Date Type Department Care Team (Late st Contact Info) Description 03/19/2019 2:30 PM EST Office [place] [phone] Charisma Zhang, RN [facility] [place] [address] Other specified counseling Social History Tobacco Use [...] Destination countries (list from first to last): [facility] Departure date: Apr 13 Length of trip: 3 weeks Purpose of travel: spriitiual [place] Accommodations: Guest house Medical History: Medical problems: Patient Active Problem List Diagnosis Code ??? Pulmonary embolism, unprovoked I26.99 ??? Pericardial effusion I31.3 ??? Hypertension I10 ??? GERD (gastroesophageal reflux disease) K21.9 ??? Hyperlipidemia E78.5 ??? Squamous cell carcinoma [id number] ??? History of SCC (squamous cell carcinoma) [...] counseling documented in this encounter Care Teams Felt Strip Finisher Relationship Specialty Start Date End Date Candie Skaggs MD [address] [place] [address] PCP - General Family Medicine 03/19/19 documented as of this encounter
--- OUTSIDE RECORDS SUMMARY | 2023-12-17 15:27 | XMS_ITS | Encounter Summary ---
Author Organization [facility] [address] Care Team Providers Care Copper Plate Printer Name Role Phone Candie Skaggs MD Primary Care Provider [phone] Encounter Details Date Type Department Care Team [...] on filedocumented in this encounter Care Teams Copper Plate Printer Relationship Specialty Start Date End Date Candie Skaggs MD [address] [place] [address] PCP - General Family Medicine 03/19/19 documented as of this encounter
--- OUTSIDE RECORDS SUMMARY | 2023-12-17 15:28 | XMS_ITS | Encounter Summary ---
Author Organization [facility] [place] [address] Care Team Providers Care Meteorologist Liaison Name Role Phone Randolph, Estee Andino APRN Primary Care Provider [phone] Reason for Visit * Reason Comments Advice Only NPW Pulmonary Embolism Encounter Details Date Type Department Care Team (Late st Contact Info) Description 03/18/2011 1:00 PM EST Office Visit Hematology [place] [phone] Audra Fields MD [facility] [address] HEMATOLOGY [place] [address] Pulmonary embolism (Primary Dx) Discharge Disposition: Home [...] MD - 03/18/2011 2:41 PM EST [facility] Department of Medicine [place] [address] [facility] THROMBOSIS CONSULTATION DATE OF VISIT 03/18/2011 Patient Nelsy Ruffin 1935 REFERRING PHYSICIAN ESTEE STINSON APRN PRIMARY CARE PHYSICIAN ESTEE STINSON APRN REASON FOR CONSULTATION Evaluation for thrombophilia HISTORY OF THE PRESENT ILLNESS Nelsy uRffin is a 75 y.o. 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 Nelsy was sitting in her car one day in June 2010 talking on the phone when she developed sudden onset of right flank pain. She took advil without relief and presented to the [facility] ER as the pain worsened. The pain was described as sharpand stabbing, like a knife, and was not associated with respiratory symptoms including shortness ofbreath and no cold or flu-like symptoms. A CTPA at [facility] showed a segmental PE involving the right lower lobe and she was transferred to [facility] [place] further treatment and evaluation. She was [...] stopping warfarin. She was seen in the 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 Irrespective of the presence or absence of [...] recommendations at that time. Audra Fields MD Marketing Proposal Coordinator, [facility] documented in this [...] (03/18/2011 2:20 PM EST) Prothrombin Mutation Negative [facility] Prothrombin Mutation Interp RESULT: NEGATIVE [place] [address] (G->A) [place] IN THE 3' UNTRANSLATED REGION OF THE PROTHROMBIN GENE. METHODS: The region of interest in the Prothrombin gene [12523 (G->A)] is interrogated using the Third Wave [...] determined by the Molecular Pathology Laboratory at [facility]. This test is used for clinical purposes and should not be considered as investigational or for research purposes. ??It has not been cleared or approved by the U.S. Food and Drug Administration. However, as a C[place] licensed laboratory, our facility is approved for such high complexity clinical testing. [facility] Comment: [VERIFIED DATE]03.22.11 Verified By:Lizy Quesada MD Pathologist (Electronic Signature) Blood specimen (specimen) 03/18/2011 2:20 PM EST 03/19/2011 7:33 AM EST Audra Fields MD HEMATOLOGY ORDERAB LES [facility] MILLENNIUM * (ABNORMAL) PROTEIN S ACTIVITY (03/18/2011 2:20 PM EST) Protein S Act 134(H) 65 - 123 % activity CERNER MILLENNIUM Blood specimen (specimen) 03/18/2011 2:20 PM EST 03/18/2011 2:25 PM EST Audra Fields MD HEMATOLOGY ORDERAB LES [facility] MILLENNIUM * (ABNORMAL) PROTEIN C ACTIVITY (03/18/2011 2:20 PM EST) Protein C Activity 200(H) 67 - 156 % activity CERNER MILLENNIUM Blood specimen (specimen) 03/18/2011 2:20 PM EST 03/18/2011 2:25 PM EST Audra Fields MD HEMATOLOGY ORDERAB LES [facility] MILLENNIUM * (ABNORMAL) ANTITHROMBIN (03/18/2011 2:20 PM EST) Antithrombin III Assay 128(H) 80 - 120 % CERNER MILLENNIUM Blood specimen (specimen) 03/18/2011 2:20 PM EST 03/18/2011 2:25 PM EST Audra Fields MD HEMATOLOGY ORDERAB LES [facility] MILLENNIUM * APC RESISTANCE (03/18/2011 2:20 PM EST) Activated Protein C Resistance 2.45 >=2.00 CERNER MILLENNIUM Blood specimen (specimen) 03/18/2011 2:20 PM EST 03/18/2011 2:25 PM EST Audra Fields MD HEMATOLOGY ORDERAB LES Performing Organization Address [facility] de Phone Number [facility] [employer] * BETA-2 GLYCOPROTEIN ANTIBODIES (03/18/2011 2:20 PM EST) Beta 2 Glycoprotein, IgG <21 <=20 unit(s) [facility] Comment: Ranges ?Units ----- ? ----- Normal ? <21 Low Positive (+) ?21-50 Moderate Positive (+) ? 51-100 High Positive (+) ?>100 Beta 2 Glycoprotein, IgM <21 <=20 unit(s) [facility] Comment: Ranges ? Units ----- ?----- Normal ?<21 Low Positive (+) ? 21-50 Moderate Positive (+) ?51-100 High Positive (+) ? >100 B2GPI Interp see comment PREMA BAXTERIUM Comment:See Thrombosis Joann n Report in eDH under Coagulation Reports Blood specimen (specimen) 03/18/2011 2:20 PM EST 03/19/2011 8:07 AM EST Audra Fields MD IMMUNOLOGY ORDERAB LES Performing Organization Address [facility] Co de Phone Number [facility] * HOMOCYSTEINE TOTAL, PLASMA (03/18/2011 2:20 PM EST) Homocystine 9 5 - 12 mcmol/L [facility] Comment: Reference Range applies to fasting specimens only. Note change of reference range from 5-15 mcmol/L to 5-12 mcmol/L on 09/20/08. Blood specimen (specimen) 03/18/2011 2:20 PM EST 03/19/2011 8:16 AM EST Audra Fields MD CHEMISTRY ORDERABL ES [facility] * CARDIOLIPIN ANTIBODY SCREEN (03/18/2011 2:20 PM EST) Cardiolipin Antibody IgG <23 <=22 GPL unit(s) [facility] Comment: Ranges ? GPL ------- ? ------ Normal ?<23 Low Positive ? 23-35 Moderate Positive ?36-50 High Positive ? >50 Cardiolipin Antibody IgM <11 <=10 MPL unit(s) [facility] Comment: Ranges ?MPL ----- ?----- Normal ?<11 Low Positive ? 11-20 Moderate Positive ?21-30 High Positive ? >30 Blood specimen (specimen) 03/18/2011 2:20 PM EST 03/19/2011 8:07 AM EST Audra Fields MD IMMUNOLOGY ORDERAB LES Performing Organization Address [facility] Co de Phone Number CERNER MILLENNIUM * THS REPORT (03/18/2011 2:20 PM EST) THS Report See Comment CERNER MILLENNIUM Comment: See Thrombosis Screen Report [id number] under Coagulation Reports Blood specimen (specimen) 03/18/2011 2:20 PM EST 03/18/2011 2:25 PM EST Audra Fields MD HEMATOLOGY ORDERAB LES Performing Organization Address [facility] de Phone Number CERNER MILLENNIUM * PLAT (03/18/2011 2:20 PM EST) Platelet 288 145 - 370 x10(3)/mcL CERNER MILLENNIUM Blood specimen (specimen) 03/18/2011 2:20 PM EST 03/18/2011 2:25 PM EST Audra Fields MD HEMATOLOGY ORDERAB LES Performing Organization Address [facility] de Phone Number CERNER MILLENNIUM * LANT (03/18/2011 2:20 PM EST) Lupus Anticoagulant Neg Neg CERNER MILLENNIUM Blood specimen (specimen) 03/18/2011 2:20 PM EST 03/18/2011 2:25 PM EST Audra Fields MD HEMATOLOGY ORDERAB LES Performing Organization Address [facility]/ZIP Co de Phone Number CERNER MILLENNIUM * TT (03/18/2011 2:20 PM EST) Thrombin Time 16 15 - 20 sec CERNER MILLENNIUM Blood specimen (specimen) 03/18/2011 2:20 PM EST 03/18/2011 2:25 PM EST Audra Fields MD HEMATOLOGY ORDERAB LES Performing Organization Address [facility] de Phone Number [facility] * FIBR (03/18/2011 2:20 PM EST) Fibrinogen 327 200 - 470 mg/dL CERNER MILLENNIUM Blood specimen (specimen) 03/18/2011 2:20 PM EST 03/18/2011 2:25 PM EST Audra Fields MD HEMATOLOGY ORDERAB LES Performing Organization Address [facility] Phone Number [facility] MILLENNIUM * PTT (03/18/2011 2:20 PM EST) Partial Thromboplastin Time 25 25 - [address] MILLENNIUM Comment: Recommended therapeutic PTT range for full dose unfractionated heparin is 80-114 seconds. Blood specimen (specimen) 03/18/2011 2:20 PM EST 03/18/2011 2:25 PM EST Audra Fields MD HEMATOLOGY ORDERAB LES Performing Organization Address [facility] Phone Number [facility] * PT (03/18/2011 2:20 PM EST) Prothrombin Time 12.9 12.3 - 14.7 sec CERNER MILLENNIUM Comment: [facility] Transfusion Committee Guidelines: INR less than 2.0, [...] MD HEMATOLOGY ORDERAB LES Performing Organization Address [facility] de Phone Number [facility] * D-Dimer, Quantitative (03/18/2011 2:20 PM EST) [facility] D-Dimer 201 0 - 500 FEU ng/ml [facility] Comment: The D-Dimer assay is [...] MD HEMATOLOGY ORDERAB LES Performing Organization Address [facility] de Phone Number [facility] * THROMBOSIS SCREEN REPORT (03/18/2011 2:15 PM EST) [facility] Thrombosis Screen Report ? [facility] ? Provider: ?? Diamond SMITH, ?Pt. Name: ?? LALY NELSY Chavez ?Audra Laguna ? Acc #: ?[id number] ? Pt. ? Col Date: ?? 03/18/2011 [...] ?(IgM <11 MPL) ? <11 MPL ? Eykx-0-znhpjevwztir- 1 antibodies ??(IgG <21 units) ? IgG <21 units ? Qebg-3-jdvobjlgzflh- 1 antibodies ??(IgM <21 units) ? IgM <21 units ? Homocysteine, random, plasma ?(<12 umol/L) ?9 umol/L ? Prothrombin (88611 G->A) mutation (normal) ?negative ? * Functional [...] presence of factor V Leiden. ??The ? [facility] ? Provider: ?? Diamond SMITH, ?Pt. Name: ?? NELSY RUFFIN ?Audra Edmond. ? Acc #: ?[id number] ? Pt. ? Col Date: ?? 03/18/2011 [...] infarction documented in this encounter Care Teams Meteorologist Liaison Relationship Specialty Start Date End Date Estee Stinson APRN PCP - General 01/09/10 10/12/14 documented as of this encounter
--- OUTSIDE RECORDS SUMMARY | 2023-12-17 15:28 | XMS_ITS | Encounter Summary ---
Author Organization [facility] [place] [address] Care Team Providers Care Commissary Helper Name Role Phone Estee Stinson APRN Primary Care Provider [phone] Reason for Visit * Reason Comments Follow-up Encounter Details Date Type Department Care Team (Late st Contact Info) Description 04/05/2011 11:30 AM EST Follow-Up [place]ology [place] [phone] Audra Fields MD [facility] DR HEMATOLOGY [place] [address] Pulmonary embolism (Primary Dx) Discharge Disposition: Home [...] Fields MD - 04/05/2011 12:51 PM EST [facility] Department of Medicine [place] [address] Hemophilia and Thrombosis Center THROMBOSIS FOLLOW UP [...] advil without relief and presented to the [facility] ER as the pain worsened. The pain was described as sharp and stabbing, like a knife, and was not associated with respiratory symptoms including shortness of breath and no cold or flu-like symptoms. A CTPA at [facility] showed a segmental PE involving the right lower lobe and she was transferred to [facility] for further treatment and evaluation. Shewas initially [...] stopping warfarin. 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 Since I saw her last she has done well. 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 Audra Fields MD Supply Chain Buyer, [facility] documented in this encounter Plan of Treatment Not on file documented as of this encounter Visit Diagnoses Diagnosis Pulmonary embolism- Primary Other pulmonary embolism and infarction documented in this encounter Care Teams Commissary Helper Relationship Specialty Start Date End Date Estee Stinson APRN PCP - General 01/09/10 10/12/14 documented as of this encounter
--- OUTSIDE RECORDS SUMMARY | 2023-12-17 15:28 | XMS_ITS | Encounter Summary ---
[place] [address] Care Team Providers Care Laborer Mine Name Role Phone Iredell, Estee Andino APRN Primary Care Provider [phone] Encounter Details Date Type Department Care Team (Latest Contact Info) Description 06/21/2010 3:33 AM EDT - 06/21/2010 4:56 PM EDT Hospital Encounter Hematology [place] [phone] [place] [address] [place] [address] Pulmonary embolism; Other pulmonary embolism and infarction [...] given today) Your Inpatient Medical Team at [facility] Name(s) of your inpatient provider(s): Dr. Goyo Lawson For questions regarding issues relating to your hospitalization on the Medical Service, please contact your inpatient physician through the [facility] Slab Miller Operator . Issues after hours and on weekends will be handled by the Hospitalist staff on-call. Your Primary Care Provider ESTEE STINSON APRN * Attachments The following attachments cannot be sent through Care Everywhere. * PULMONARY EMBOLISM: AFTER YOUR VISIT (BOLIVIAN) * TIPS TO PREVENT BLOOD CLOTS: AFTER YOUR VISIT (BOLIVIAN) * CONSISTENT VITAMIN K DIET: AFTER YOUR VISIT (BOLIVIAN) documented in this encounter Medications at Time [...] Lawson MD - 06/21/2010 1:44 PM EDT [facility] Hospital Medicine - Attending Day of Discharge [...] Encounter Date: 06/21/2010 Patient Name: Nelsy Ruffin MR#:[id number] S: I'm still having some pain... In my back (indicating posterior shoulder blade) especially when I take a deep breath. O: patient reviewed in multidisciplinary rounds; CRC has reviewed E-Dh notes; introduced self and CRC role to patient and spouse Geovanni ([phone]); patient and agree to CRC services; pt currently lives w/ in own home in [place], [place]. Reason for hospital admission: pulmonary embolism. Current functional status/mobility: independent. Baseline functional status/mobility: no functional deficits. Home environment: not assessed. PCP and date of last appt: listed as Dr. Monica Stinson, pt verifies that as accurate. Current home services/DME and vendor: none. Insurance coverage: Medicare A,B. Prescription benefit and pharmacy: no prescription coverage, uses [facility]. CRC called pharmacy to inquire about pt's [id number]-jqyflv expense for 5 day course of lovenox andshared cost w/ pt and . Financial concerns: no concerns voiced. Anticipated services at discharge: no needs noted at this time. Transportation at discharge: spouse will transport pt home. Social support: Geovanni. A: anticipate discharge w/in next 24 hours. P: This marine underwriter or OCM colleague will continue to follow patient to assist w/ changing needs. CRC will collaborate w/ patient, medical team and family to formulate discharge plan. CRC may be reached on pager [phone] or by leaving a voice mail message at ext [phone]. Medical Team: Hospitalist Team, pager [phone]. Estee Loera RN, MSN, CRC Clinical Public Health Aides Teacher Office of Care Management Pager [phone] Phone: [phone] documented in this encounter H&P Notes * Memo Rosas, DO - 06/21/2010 8:07 AM EDT Inpatient Hospital Medicine - Admission Note Problem List: PE ID: [id number] y.o. Female presents to [facility] with unprovoked PE History of Present Illness: HPI 74 yo female with h/o HTN and hyperlipidemia presents for further evaluation and treatment of unprovoked PE. Patient states she was in her usual state of health then experienced acute onset of Right sided flank pain that radiated to her back. She reported respirophasic nature of the pain. She reported to [facility] ED for evaluation and was found to [...] nature of the pain. She reported to [facility] ED for evaluation and was found to [...] given today) Your Inpatient Medical Team at [facility] Name(s) of your inpatient provider(s): Dr. Goyo Lawson For questions regarding issues relating to your hospitalization on the Medical Service, please contact your inpatient physician through the [facility] Slab Miller Operator . Issues after hours and on weekends will be handled by the Hospitalist staff on-call. Your Primary Care Provider ESTEE STINSON APRN General Instructions Provider Contact Information: Dr. Goyo Lawson Discharge References/Attachments: Discharge References/Attachments PULMONARY EMBOLISM: AFTER YOUR VISIT (BOLIVIAN) TIPS TO PREVENT BLOOD CLOTS: AFTER YOUR VISIT (BOLIVIAN) CONSISTENT VITAMIN K DIET: AFTER YOUR VISIT (BOLIVIAN) For questions regarding this document or issues relating to this hospitalization on the Medical Service, please contact your inpatient physician through the [facility] Slab Miller Operator . Issues afterhours and on weekends [...] 06/22/19 11 5:44 AM EDT CARDIAC ENZYMES ([facility]) Routine 06/21/2010 5:44 AM EDT CBC (WITH [...] (Bezet) 435 ms MUSE SYSTEM Calculated P [place] 52 degrees MUSE SYSTEM Calculated R [place] 7 degrees MUSE SYSTEM Calculated T [place] 43 degrees MUSE SYSTEM INTERPRETATION Normal sinus [...] DO HEMATOLOGY ORDERABLE S Performing Organization Address [facility] Co de Phone Number [facility] * Protime-INR (06/21/2010 5:45 AM EDT) Prothrombin Time 13.9 12.3 - 14.7 sec [facility] Comment: [facility] Transfusion Committee Guidelines: INR less than 2.0, PTT less than OR equal to 43.5 seconds, or Fibrinogen greater than or equal to 100 mg/dl indicate adequate procoagulant activity for hemostasis in patients without underlying bleeding disorders. International Normalization Ratio 1.0 0.9 - 1.1 [facility] Blood specimen (specimen) 06/21/2010 5:45 AM EDT 06/21/2010 5:51 AM EDT Memo Rosas DO HEMATOLOGY ORDERABLE S [facility] ReadyforceIUM * CARDIAC ENZYMES (06/21/2010 5:44 AM EDT) Troponin-T <0.03 <=0.03 ng/mL [facility] Comment: 0.03 ng/mL: Represents the 99th percentile upper reference limit for normals. >0.03 ng/mL: Elevated cardiac troponin T level indicative of myocardial damage. Diagnosis of acute, evolving or recent CO requires a typical rise and gradual fall [...] consensus document of the Joint Society of Cardiology/[place] College of Cardiology Committee for the redefinition of myocardial infarction. Journal of the [place] College of Cardiology 2000; 36: 959-969] Creatine [...] DO HEMATOLOGY ORDERABLE S Performing Organization Address [facility] Co de Phone Number [facility] ALEXANDREENNIUM * Brain natriuretic peptide (on admission) (06/21/2010 5:44 AM EDT) NT-proBNP 44 <=125 pg/mL [facility] Blood specimen (specimen) 06/21/2010 5:44 AM EDT 06/21/2010 5:50 AM EDT Memo Rosas DO CHEMISTRY ORDERABLES Performing Organization Address [facility] de Phone Number [facility] * (ABNORMAL) Basic metabolic panel (06/21/2010 [...] BESTANINE F ? (Age): 1935(74) Med Rec#: ?[id number] ?Sex: ?F ? Site Loc: ?[facility] ?Ht / Wt: ??155(cm)/68(kg) Pt. Loc: ? Adult Floor ? BSA: ?1.67 Study Date: ?06/21/2010 ?Pt. Type: Inpatient Tape: ? Referring: Clau Rosas Riverboat Master: Gemma Rebolledo RCS Interpreting Fellow: Fei Reardon Diagnosis:CPT Code(s): ??Echo Full (36999), ??Spectral Doppler (94889), Color Doppler (50485), Indication(s): ??Pulmonary embolus, R/O Rhythm: Sinus HR [...] Mid-Inferior ?Normal ? Mid-Inferoseptal ?Normal ? [facility]-Septal ? Normal ? [facility]-Anterior ? Normal ? [facility]-Lateral ?Normal ? [facility]-Inferior ? Normal ? [facility]-Tip ?Normal ? Chambers ?Value ?Units (Range) ? [...] 06/21/2010 11:55:10 Images reviewed and interpretation verified [facility] Cardiac Ultrasound Laboratory Procedure Note 06/21/2010 Procedure: Transthoracic Echocardiogram Patient: CAT Chavez (Age): 1935(74) Med Rec#: [id number] Sex: F Site Loc: [facility] Ht / Wt: 155(cm)/68(kg) Pt. Loc: Adult Floor BSA: 1.67 Study Date: 06/21/2010 Pt. Type: Inpatient Tape: Referring: Clau Rosas Riverboat Master: Gemma Rebolledo RCS Interpreting Fellow: Fei Reardon Diagnosis:CPT Code(s): Echo Full (00464), Spectral Doppler (86250), Color Doppler (49539), Indication(s): Pulmonary embolus, R/O Rhythm: Sinus HR [...] Mid-Posterolateral Normal Mid-Inferior Normal Mid-Inferoseptal Normal [facility]-Septal Normal [facility]-Anterior Normal [facility]-Lateral Normal [facility]-Inferior Normal [facility]-Tip Normal Chambers Value Units (Range) LV EF [...] 06/21/2010 11:55:10 Images reviewed and interpretation verified [facility] Cardiac Ultrasound Laboratory Unknown ECHO ORDERABLES documented [...] than 145 sec X 2 - call warehouse logistics manager See Bolus dosing guidance for aPTT [...] than 145 sec X 2 - call warehouse logistics manager See Bolus dosing guidance for aPTT [...] RN) documented in this encounter Care Teams Laborer Mine Relationship Specialty Start Date End Date Estee Stinson APRN PCP - General 01/09/10 10/12/14 documented as of this encounter
--- OUTSIDE RECORDS SUMMARY | 2023-12-17 15:28 | XMS_ITS | Encounter Summary ---
Author Organization [facility] [place] [address] Care Team Providers Care Residence Hall Director Name Role Phone Estee Novak APRN Primary Care Provider [phone] Encounter Details Date Type Department Care Team (Late st Contact Info) Description 01/14/2011 Abstract Cardiology at [address] [phone] Sarah Morales LPN Social History Tobacco Use [...] on filedocumented in this encounter Care Teams Residence Hall Director Relationship Specialty Start Date End Date Estee Novak APRN PCP - General 01/09/10 10/12/14 documented as of this encounter
--- OUTSIDE RECORDS SUMMARY | 2023-12-17 15:28 | XMS_ITS | Data Portability ---
Author Organization [place] - .[facility], [employer] [place] Address [address] [place] [address] Care Team Providers Care Bench Mover Name Role Phone KUMAR SCHULTZ Primary Care Provider Assessment No assessment recorded. Plan of Treatment Reminders Order Date Submit Date Provider Last Modified By Organization Details Last Modified Time Details Appointments None recorded. Lab None recorded. Referral None recorded. Procedures None recorded. Surgeries None recorded. Imaging None recorded. Medication Orders famotidine 40 mg tablet 2021 022 [facility] [address] [place], [address], 15:06:03 Patient TargetsNo targets recorded. Patient InstructionsNo instructions recorded. Reason for Referral None Reported. Results Created Date Observation Date Name Description Value Unit Range Abnormal Flag Note LastModifiedBy Organization Detail LastModifiedTime 06/20/19 22 06/15/2021 MRI, abdom en, w/wo contr ast No observ ation record ed. [email or web address] [facility] (Radiology) [address] [place], [address], 06/27/2021 14:27:56 Result Notes None recorded. Problems Name Problem SNOMED Code Status Onset Date Resolution Date Notes Provider Name and Address Organization Details Recorded Time Gastroesophage al reflux disease without esophagitis 498379570 Active 2021 Geovanni Kramer MD [address] [place] [address], [address], [place], [address] [facility] [place] - .[employer] 15:09:11 Problem Notes None recorded. Procedures Surgical History Date Name Laterality Status Provider Name and Address Organization Details Recorded Time Appendectomy completed Geovanni butt MD [address] [facility],[address] [facility], [place], [address], [facility] - .[facility] 05/30/2021 14:59:40 Imaging Results Imaging Date Name Status LastModified by Organiz ation Details LastModified Time 06/15/2021 MRI, abdomen, w/wo contrast completed [email or web address] [facility] (Radiology) [address] [place], [address], 06/27/2021 14:27:56 Procedure Notes None recorded. Medical Equipment None Reported. Allergies Allergen ID Allergen Name Allergen Category Reaction Reaction Severity Criticality Documentation Date Start Date Code Code System Note Provider Name and Address Organization Details Recorded Time 0454519 codeine medicatio n Not available Not available Not available 05/30/2021 2670 RxNorm Geovanni Kramer MD [address] [facility], [address] [place], [address], [place] - .[facility] 15:00:03 Medications Name Sig Start Date Stop [...] Or Have You Ever Used Smokeless Tobacco? [id number] Information not available 05/30/2021 Do You Or [...] Diagnosis/Indication Diagnosis SNOMED-CT Code Diagnosis ICD10 Code 37095596 Geovanni Mccoyrk_5 [address] [address] [place] [address],[place] [address] 05/30/2021 08:06:32 05/30/2021 16:13:14 Gastroesophageal reflux disease without esophagitis 367217094 K21.9 40497023 Geovanni Mccoyrk_5 [address] [facility] [address] [place] [address] 06/27/2021 13:08:09 06/27/2021 13:55:18 Gastroesophageal reflux disease without esophagitis 291874789 K21.9 Health Concerns Section Related Observation LastModified by Organization Detai ls LastModified Time None Recorded Concern Status LastModified by Organization Details LastModified Time None Recorded Advance Directives Directive None Recorded Payers Encounter Date Sequence Insurance Name Policy Number Policy Baez Covered Member ID Baez Member ID Guarantor Name 05/30/2021 1 [place]: [employer] Abby F Laly [id number] Abby Laly 06/27/2021 1 MED[place]: [employer] Abby F Laly [id number] Abby [place] Notes Date Note Type Note Provider Name [...] Not taking antacids. Denies BRBPR or melena. 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 Denies BRBPR or melena. 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 Had a normal upper GI series 06/15/21. CTAP negative 2 months ago per pt at [facility]. Geovanni Kramer MD [address] [place] [address],[address], [place], [address], [facility] - .[facility] 06/27/2021 13:54:02 OBGyn Episode No OBEpisode recorded.
--- OUTSIDE RECORDS SUMMARY | 2023-12-17 15:28 | XMS_ITS | Encounter Summary ---
Author Organization [facility] [place] [address] Care Team Providers Care Floor Worker Name Role Phone Estee Novak APRN Primary Care Provider [phone] Reason for Visit * Reason Onset Date Comments Advice Only 03/12/2011 regarding labs f or upcoming yosef't in April Encounter Details Date Type Department Care Team (Late st Contact Info) Description 03/12/2011 Telephone [place]ematology [place] [phone] Amarilis Jacobs, christian education director Only (regarding labs for upcoming yosef't in [...] Ruffin called in regards to his Abby Maciel#[id number]. He had some questions about maybe having labs before her appointment in April. She had a clot in the spring and was put on Coumadin, but now her PCP has taken her off this, she is doing fine but now thinking that maybe she shouldhave prior lab work done. h- [phone] Roxy Mondragon Clinical Mittie Hematology/Oncology [facility] cancer.[facility] documented in this encounter Plan of Treatment Not on file documented as of this encounter Visit Diagnoses Not on filedocumented in this encounter Care Teams Floor Worker Relationship Specialty Start Date End Date Estee Novak APRN PCP - General 01/09/10 10/12/14 documented as of this encounter
--- OUTSIDE RECORDS SUMMARY | 2023-12-17 15:28 | XMS_ITS | Encounter Summary ---
Author Organization [facility] [place] [address] Care Team Providers Care Secondary History Teacher Name Role Phone MayesEstee vance Thu VEGA Primary Care Provider [phone] Reason for Visit * Reason Comments Skin Lesion Encounter Details Date Type Department Care Team (Late st Contact Info) Description 01/17/2012 3:50 PM EST Office Visit Dermatology at [facility] [address] [place] [address] Jessenia Donovan MD [facility] [place] [address] Neoplasm of unspecified nature of bone, soft [...] supervision with direct supervision immediately available. (definition: [facility] Policy Statement on Graduate Medical Education, [...] concerns. Jessenia Donovan MD Resident in Dermatology [facility] Patient seen and evaluated with staff tablet making machine operator helper: Prisca Brantley MD Section of Dermatology [facility] documented in this encounter Plan of [...] 6:35 PM EST) Surgical Pathology Report ? [facility] ? Provider: ?? ZION, ? Pt. Name: ?? LALY, NELSY F ?JESSENIA Hightower ? Acc #: ?[id number] ? Pt. ? Col Date: ?? 01/17/2012 [...] MD PATHOLOGY/CYT OLOGY ORDERABLES Performing Organization Address City/[facility] Co de Phone Number MAO [...] keratosis documented in this encounter Care Teams Secondary History Teacher Relationship Specialty Start Date End Date Estee Novak APRN PCP - General 01/09/10 10/12/14 documented as of this encounter
--- OUTSIDE RECORDS SUMMARY | 2023-12-17 15:28 | XMS_ITS | Encounter Summary ---
Author Organization [facility] [place] [address] Care Team Providers Care Electronics Recycler Name Role Phone Cherry, Estee Andino APRN Primary Care Provider [phone] Reason for Visit * Reason Onset Date Comments Results 02/26/2011 Encounter Details Date Type Department Care Team (Late st Contact Info) Description 02/26/2011 Telephone Cardiology at [address] [phone] George Jalloh MD [facility] [place] [address] Results Social History Tobacco Use Types Packs/Day [...] on filedocumented in this encounter Care Teams Electronics Recycler Relationship Specialty Start Date End Date Estee Novak APRN PCP - General 01/09/10 10/12/14 documented as of this encounter
--- OUTSIDE RECORDS SUMMARY | 2023-12-17 15:28 | XMS_ITS | Encounter Summary ---
Author Organization [facility] [place] [address] Care Team Providers Care Manager Name Role Phone Estee Novak APRN Primary Care Provider [phone] Encounter Details Date Type Department Care Team (Latest Contact Info) Description 01/14/2011 3:40 PM EST - 01/14/2011 11:59 PM EST Hospital Encounter [place] [phone] Alexandra Hong RN Palpitations Discharge Disposition: Home [...] Palpitations documented in this encounter Care Teams Manager Relationship Specialty Start Date End Date Estee oNvak APRN PCP - General 01/09/10 10/12/14 documented as of this encounter
--- OUTSIDE RECORDS SUMMARY | 2023-12-17 15:28 | XMS_ITS | Encounter Summary ---
Author Organization [facility] [place] [address] Care Team Providers Care Rolled Materials Worker Name Role Phone Estee Novak APRN Primary Care Provider [phone] Encounter Details Date Type Department Care Team (Latest Contact Info) Description 07/02/2010 1:45 PM EDT - 07/02/2010 11:59 PM EDT [place] [address] Unknown None Discharge Disposition: Home [...] 12.3 - 14.7 sec MAO MARTÍNEZ Comment: [facility] Transfusion Committee Guidelines: INR less than [...] on filedocumented in this encounter Care Teams Rolled Materials Worker Relationship Specialty Start Date End Date Estee Novak APRN PCP - General 01/09/10 10/12/14 documented as of this encounter
--- OUTSIDE RECORDS SUMMARY | 2023-12-17 15:28 | XMS_ITS | Encounter Summary ---
Author Organization [facility] [place] [address] Care Team Providers Care Firefighter Name Role Phone Letcher, Estee Andino APRN Primary Care Provider [phone] Reason for Visit * Reason Comments Preoperative Cardiovascular Encounter Details Date Type Department Care Team (Late st Contact Info) Description 01/14/2011 3:30 PM EST Office Visit Cardiology at [address] [phone] George Jalloh MD [facility] [place] [address] Palpitations (Primary Dx) Discharge Disposition: Home Social [...] MONITOR NOTE Seen for instruction using a [employer] 7 day cardiac transient arrythmia monitor, ordered [...] HPI PULM: no cough,wheeze GI: no N,V,D,hematochezia,melena CAUL PULLER: no syncope,focal weakness,paresthesias PMH: HTN Hyperlipidemia Pulmonary [...] to have A-fib she may benefit from intermediate project manager anticoagulation. At this time there is no [...] Palpitations documented in this encounter Care Teams Firefighter Relationship Specialty Start Date End Date Estee Novak APRN PCP - General 01/09/10 10/12/14 documented as of this encounter
[2023-12-23 08:53] LABS: Urine Volume 800 mL; VMA, Adult (>14y) 3.1 mg/24 h (<8.0)
[2023-12-26 17:28] LABS: Metanephrines, U 92 mcg/24 h; Normetanephrine, U 250 mcg/24 h; Total Metanephrines, U 342 mcg/24 h; Urine Volume 800 mL
== END 2023-12-17 15:21 | disposition home or self-care (01) ==
LOC: LBN 15:20
PROVIDERS: PCP Family Medicine; Visit Provider Internal Medicine
DX: I10 Essential (primary) hypertension (principal); I26.99 Other pulmonary embolism without acute cor pulmonale; R73.01 Impaired fasting glucose; E78.5 Hyperlipidemia, unspecified; R10.9 Unspecified abdominal pain; E87.6 Hypokalemia; I16.9 Hypertensive crisis, unspecified
CPT/HCPCS: 81050; 83835; 84585

== ENCOUNTER 2024-01-01 16:20 | Outpatient (CLI) | payer MEDICARE, SELFPAY ==
[2024-01-01 16:44] LABS: Anion Gap 8.9 mmol/L (3-11); CO2 29.1 mmol/L (21.0-32.0); Chloride 107 mmol/L (98-107); Potassium 3.3 mmol/L (3.5-5.1); Sodium 145 mmol/L (136-145)
== END 2024-01-01 16:21 | disposition home or self-care (01) ==
LOC: LBO 16:22
PROVIDERS: PCP Family Medicine; Visit Provider Internal Medicine
DX: E87.6 Hypokalemia (principal)
CPT/HCPCS: 36415; 80051

== ENCOUNTER 2024-01-24 15:23 | Emergency (ER) | payer MEDICARE, SELFPAY ==
[2024-01-24 15:26] VITALS: BP 159/78; PULSE 55; TEMP 36.5; O2SAT 96
[2024-01-24 15:33] VITALS: BP 159/78; PULSE 55; TEMP 36.5; O2SAT 96
--- NOTE | 2024-01-24 19:45 | ED.GENADUL_ITS ---
Discharge Plan Disposition Patient Disposition: Against Medical Advice Condition: Stable Discharge Details Clinical Impression: Fatigue Primary Care Provider: Candie Skaggs ED Provider: Asia Melissa Home Meds and New Rx's Prescriptions: Continued clobetasol 0.05 % ointment 1 applic topical .COMPLEX Qty: 45 4RF Rx Instructions: Massage around vaginal opening, labia, clitoris and perineum. Use daily when having itching/irritation estradiol 0.01 % (0.1 mg/gram) cream 1 g vaginal .COMPLEX Qty: 42.5 5RF Rx Instructions: Massage a pea-sized amount around the vaginal opening. Use twice weekly Emergen-C 1,000 mg powder effervescent in packet 1 packet PO DAILY hydrochlorothiazide 12.5 mg tablet 12.5 mg PO DAILY losartan 100 mg tablet 100 mg PO DAILY magnesium oxide 500 mg tablet 500 mg PO DAILY cholecalciferol (vitamin D3) 50 mcg (2,000 unit) capsule 50 mcg PO DAILY lorazepam 0.5 mg tablet 0.5 mg PO DAILY PRN Xarelto 20 mg tablet 10 mg PO DAILY Patient Comments: TAKE ONE TABLET BY MOUTH EVERY DAY potassium chloride 20 mEq tablet extended release 20 meq PO DAILY Patient Comments: 06/22/20 pt states that she only takes it sometimes dicyclomine 10 mg capsule 10 mg PO BID PRN Patient Comments: TAKE ONE CAPSULE BY MOUTH TWICE A DAY NEEDED STOMACH SPASMS amlodipine 5 mg tablet 5 mg PO DAILY Patient Comments: TAKE ONE TABLET BY MOUTH EVERY DAY pantoprazole 40 mg tablet,delayed release (DR/EC) 40 mg PO BID Patient Comments: TAKE ONE TABLET BY MOUTH TWICE A DAY metoprolol succinate 25 mg tablet extended release 24 hr 12.5 mg PO DAILY Patient Comments: TAKE ONE-HALF TABLET BY MOUTH TWICE A DAY ondansetron 4 mg tablet,disintegrating 4 mg PO Q8H PRN (Reason: nausea and vomiting) Qty: 30 0RF Discharge Data Discharge Date/Time-TO BE ENTERED AT DEPARTURE: 01/24/24 15:46 HPI General Date/Time Provider Initiated Documentation: 01/24/24 15:30 . HPI Narrative: This 88-year-old female presents with report of concern for hypokalemia. Patient states she has been feeling fatigued and in the past her potassium has been low with this finding. She denies any chest pain or shortness of breath. She denies any dizziness or weakness. Patient denies known exacerbating or alleviating factors. She was recently taken off her hydrochlorothiazide and her PCP told her to stop taking her potassium. Related Data Home Medications ?Medication ?Instructions ?Recorded ?Confirmed potassium chloride 20 mEq 20 meq PO DAILY 06/22/20 01/02/24 tablet,extended release ascorbic acid 1,000 1 packet PO DAILY 06/11/22 01/02/24 [id number] powder effervescent pack (Emergen-C) rivaroxaban 20 mg tablet (Xarelto) 10 mg PO DAILY 06/11/22 01/02/24 cholecalciferol (vitamin D3) 50 50 mcg PO DAILY 06/18/22 01/02/24 mcg (2,000 unit) capsule hydrochlorothiazide 12.5 mg tablet 12.5 mg PO DAILY 06/18/22 01/02/24 lorazepam 0.5 mg tablet 0.5 mg PO DAILY PRN 06/18/22 01/02/24 losartan 100 mg tablet 100 mg PO DAILY 06/18/22 01/02/24 magnesium oxide 500 mg PO DAILY 06/18/22 01/02/24 amlodipine 5 mg tablet 5 mg PO DAILY 10/19/23 01/02/24 dicyclomine 10 mg capsule 10 mg PO BID PRN 10/19/23 01/02/24 metoprolol succinate 25 mg 12.5 mg PO DAILY 10/19/23 01/02/24 tablet,extended release 24 hr ondansetron 4 mg disintegrating 4 mg PO Q8H PRN nausea and 10/19/23 01/02/24 tablet vomiting #30 tabs pantoprazole 40 mg tablet,delayed 40 mg PO BID 10/19/23 01/02/24 release clobetasol 0.05 % topical ointment 1 applic topical .COMPLEX #45 grams 11/11/23 01/02/24 estradiol 0.01% (0.1 mg/gram) 1 g vaginal .COMPLEX #42.5 grams 11/11/23 01/02/24 vaginal cream Previous Rx's ?Medication ?Instructions ?Recorded ondansetron 4 mg disintegrating 4 mg PO Q8H PRN nausea and 10/19/23 tablet vomiting #30 tabs clobetasol 0.05 % topical ointment 1 applic topical .COMPLEX #45 grams 11/11/23 estradiol 0.01% (0.1 mg/gram) 1 g vaginal .COMPLEX #42.5 grams 11/11/23 vaginal cream Allergies Allergy/AdvReac Type Severity Reaction Status Date / Time codeine (Codeine) AdvReac Mild Nausea Unverified 12/17/23 13:29 General Stated Complaint: [facility] CARMEN: 3 Exam Narrative Exam Narrative: Alert and oriented conversant 88-year-old female in no acute acute distress, ambulatory into the emergency department, no respiratory distress, cardiac rate regular, Course Vital Signs Vital signs: Vital Signs Temperature 36.5 C 01/24/24 15:26 Pulse 55 L 01/24/24 15:26 Blood Pressure 159/78 H 01/24/24 15:26 Pulse Oximetry 96 01/24/24 15:26 Temperature 36.5 C 01/24/24 15:33 Temperature Source Oral 01/24/24 15:33 Pulse 55 L 01/24/24 15:33 Respiratory Effort Normal, Non-Labored 01/24/24 15:33 Respiratory Depth Normal 01/24/24 15:33 Respiratory Pattern Normal 01/24/24 15:33 Blood Pressure 159/78 H 01/24/24 15:33 Blood Pressure Position Sitting 01/24/24 15:33 Pulse Oximetry 96 01/24/24 15:33 Oxygen Delivery Method Room Air 01/24/24 15:33 Pain Level 0 01/24/24 15:33 Lab/Test Results Lab/Test Results: Laboratory Tests Range/Units 01/24/24 01/24/24 01/24/24 15:34 16:35 18:35 WBC Cancelled RBC Cancelled Hgb Cancelled Hct Cancelled MCV Cancelled MCH Cancelled MCHC Cancelled RDW Cancelled Plt Count Cancelled MPV Cancelled Immature Gran % Cancelled Neutrophils % Cancelled Band Neutrophils % Cancelled Lymphocytes % Cancelled Atypical Lymphs % Cancelled Monocytes % Cancelled Eosinophils % Cancelled Basophils % Cancelled Metamyelocytes % Cancelled Myelocytes % Cancelled Promyelocytes % Cancelled Other Cells % Cancelled Nucleated RBC % Cancelled Absolute Neutrophils Cancelled Absolute Lymphocytes Cancelled Absolute Monocytes Cancelled Absolute Eosinophils Cancelled Absolute Basophils Cancelled RBC Morphology Cancelled Polychromasia Cancelled Hypochromasia Cancelled Poikilocytosis Cancelled Basophilic Stippling Cancelled Anisocytosis Cancelled Microcytosis Cancelled Macrocytosis Cancelled Spherocytes Cancelled Tear Drop Cells Cancelled Ovalocytes Cancelled Stomatocytes Cancelled [place] Bodies Cancelled Jagdish Cells/Echinocytes Cancelled Acanthocytes (Spur) Cancelled Schistocytes Cancelled Sodium Cancelled Potassium Cancelled Chloride Cancelled Carbon Dioxide Cancelled Anion Gap Cancelled BUN Cancelled Creatinine Cancelled Est GFR (CKD-EPI 2020) Cancelled Glucose Cancelled Calcium Cancelled Magnesium Cancelled Total Bilirubin Cancelled AST Cancelled ALT Cancelled Alkaline Phosphatase Cancelled Troponin I Cancelled Cancelled Cancelled Total Protein Cancelled Albumin Cancelled Medical Decision Making Alert and orient 88-year-old female in no acute distress. As soon as I walked into the room, patient mentions that she is here for lab draw only. Did make patient aware that I recommended evaluation for fatigue and have ordered labs. Patient is declining any additional workup at this time and is requesting to be discharged. She is aware that she has not been evaluated for her fatigue. Patient is leaving against medical recommendation prior to complete assessment, she would like to follow-up in the lab and use the lab orders that she has routinely from her primary care physician. She is fully alert, oriented, of decisional capacity. Quality:SDOH Health Related Social Needs: No Data to Display PFSH All Active Problems (Updated 01/24/24 @ 19:58 by SHIVA Richardson) Fatigue (Acute) Prediabetes (Acute) Cardiac murmur (Acute) Polymyalgia rheumatica (Acute) Lichen sclerosus et atrophicus (Acute) Atrophic vaginitis (Acute) Medical History (Updated 01/24/24 @ 19:58 by SHIVA Richardson) Genital herpes Sensory hearing loss, bilateral (06/13/14) Breath shortness Acute epigastric pain Pulmonary embolism Hypokalemia Hypertension Barretts esophagus GERD (gastroesophageal reflux disease) Atypical chest pain 05/02/17- seen at [facility]. 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 [place]. History History 2 Para Hx # Term Pregnancies 1 Multiple births Hx # Pregnancies Ectopic pregnancies AB induced 1 Hx Number of Living Children 1 AB spontaneous
== END 2024-01-24 15:46 | disposition left against medical advice (07) ==
PROVIDERS: Emergency Provider Physician Assistant; PCP Family Medicine
DX: R53.83 Other fatigue (principal); I10 Essential (primary) hypertension; Z53.29 Procedure and treatment not carried out because of patient's decision for other reasons
CPT/HCPCS: 80053; 99282; 83735; 84484; 85025; 99283

== ENCOUNTER 2024-01-26 12:45 | Outpatient (CLI) | payer MEDICARE, SELFPAY ==
[2024-01-26 13:22] LABS: ALT 22 U/L (14-59); AST 13 U/L (15-37); Albumin 3.6 g/dL (3.4-5.0); Alkaline Phosphatase 54 U/L (46-116); Anion Gap 8.6 mmol/L (3-11); BUN 21 mg/dL (7-18); Bilirubin, Total 1.01 mg/dL (0.2-1.0); CO2 27.4 mmol/L (21.0-32.0); Calcium 9.2 mg/dL (8.5-10.1); Chloride 107 mmol/L (98-107); Estimated GFR 54.19 (mL/min/1.73m2); Glucose 96 mg/dL (74-106); Potassium 3.8 mmol/L (3.5-5.1); Sodium 143 mmol/L (136-145); Total Protein 7.2 g/dL (6.4-8.2)
== END 2024-01-26 12:46 | disposition home or self-care (01) ==
LOC: LBO 12:46
PROVIDERS: PCP Family Medicine; Visit Provider Internal Medicine
DX: E87.6 Hypokalemia (principal); R73.03 Prediabetes
CPT/HCPCS: 36415; 80053

== ENCOUNTER 2024-02-06 00:30 | Outpatient (CLI) | payer MEDICARE, SELFPAY ==
--- NOTE | 2024-02-06 14:30 | DI.US_ITS ---
APPROVED REPORT EXAM: Comprehensive 2D, Doppler, and color-flow Echocardiogram Patient Location: Out-Patient Alterations Sewer: Xavi Otoole RDCS (AE) Indications: Pericardial effusion, essential HTN Conclusion Normal left ventricular wall thickness and chamber size. Ejection fraction of 60 to 65%. Wall motio n is normal Normal right ventricular size and function Both atria are mildly enlarged Aortic valve is mildly sclerotic and trileaflet without stenosis or regurgitation Mild mitral annular calcification. Trace mitral regurgitation Right ventricular systolic pressure could not be estimated Small circumferential pericardial effusion. No evidence of tamponade Wall motion Left Ventricle The left ventricle is normal size. The left ventricular systolic function is normal. The left ventric ular ejection fraction is within the normal range. There is normal left ventricular wall thickness. T here is normal LV segmental wall motion. There is no ventricular septal defect visualized. LVEF is 60 -65%. Right Ventricle The right ventricle is normal size. The right ventricular systolic function is normal. Atria Left atrium is mildly dilated. Right atrium is mildly dilated. Aortic Valve Mild aortic valve sclerosis. Aortic valve is trileaflet. There is no aortic valvular stenosis. No aor tic regurgitation is present. Mitral Valve The mitral valve is normal in structure. Mild mitral annular calcification. No evidence of mitral anabelle ve stenosis. Trace mitral regurgitation. Tricuspid Valve The tricuspid valve is normal in structure. There is no tricuspid valve stenosis. Trace tricuspid reg urgitation. Unable to assess PA pressure. Pulmonic Valve The pulmonary valve is normal in structure. There is no pulmonic valvular stenosis. Trace pulmonic re gurgitation. Great Vessels The aortic root is normal in size. The ascending aorta is normal in size. Aortic arch is normal in ca liber. IVC is normal in size and collapses >50% with inspiration. Pericardium Small circumferential pericardial effusion. 2D Dimensions IVSD d PLAX 1.04 cm F: 0.6-1.0 Ao Root d 2.61 cm F: 2.7 - 3.3 LVPW d PLAX 1.00 cm F: 0.6 - 1.0 Ao Asc Diam d 3.10 cm F: 2.3 - 3.1 LVID d PLAX 4.68 cm F: 3.8 - 5.2 LVDs 3.18 cm F: 2.2 - 3.5 LV EF Teichholz 60.1 % FS 31.96 % LV EDV (Teich) 101.4 mL LV ESV (Teich) 40.5 mL Stroke Vol Index (Teich) 38.30 M-Mode TAPSE 2.45 cm (M/F) >1.7 Auto EF LV EDV A4C 58.0 mL LV EDV A2C 66.5 mL LV EDV BP 61.9 mL LV ESV A4C 22.4 mL LV ESV A2C 23.2 mL LV ESV BP 22.7 mL LVEF(%) A4C 61.4 % LVEF(%) A2C 65.1 % LVEF(%) BP 63.4 % LV SV A4C 35.6 ml LV SV A2C 43.3 ml LV SV BP 39.2 ml LV CO A4C 1.9 L/min LV CO A2C 2.2 L/min LV CO BP 2.0 L/min HR A4C 52.79 BPM HR A2C 50.99 BPM LV EDV Index (BP) LA Volume LA Length A4C 5.5 cm LA Length A2C 5.6 cm LA Area A4C s 16.82 cm2 LA Area A2C s 17.10 cm2 LA Vol A4C A-L 43.31 mL LA Vol A2C A-L 44.38 mL LA Vol Biplane A-L 44.0 mL LA Vol/BSA A4C A-L LA Vol/BSA A2C A-L LA Vol/BSA BP A-L 27.7 mL/m2 LA Vol A4C MOD 41.8 mL LA Vol A2C MOD 42.0 mL LA Vol BP MOD 42.0 mL RA Volume RA Area A4C 15.7 cm2 RA ESV A4C (A-L) 40.9mL RA Vol/BSA A4C A-L RA Length A4C 5.1 cm RA ESV A4C (MOD) 38.6mL LV Diastology MV E' medial 0.064 (>0.07 m/s) MV E Vmax 0.56 (0.4-1.3 m/s) MV E/E' MED 8.78 (<14) MV A Vmax 0.75 (0.4-1.3 m/s) MV E' lateral 0.067 (>0.1 m/s) E/A Ratio 0.7 MV E/E' LAT 8.37 (<14) MV E' Average 0.065 m/s MV E/E'(average) 8.57 Aortic Valve AoV Vmax 1.62 m/s LVOT Vmax 1.01 m/s AoV Peak Grad 10.5 mmHg LVOT Peak Grad 4.0 mmHg AoV Area (Vmax) 1.31 cm2 LVOT VTI 0.242 m AoV VTI 0.373 m LVOT Mean Grad 2.1 mmHg AoV Mean Rajeev. 1.07 m/s LVOT SV 51.07 mL AoV Mean Grad 5.4 mmHg LVOT Diam s 1.60 cm AoV Area (VTI) 1.37 cm2 AV Regurg Peak Gr. 10.47 mmHg Velocity Ratio 0.62 Mitral Valve MV DT 270 (160-240 msec) MV Vmax TIPS 0.72 m/s MV Mean Grad 0.7 (<2mmHg) MV VTI 0.261 m Pulmonary Valve PV Vmax 0.81 (0.5-1.5 m/s) RVOT Vmax 0.72 m/s PV Peak Grad 2.6 mmHg RVOT Peak Gr. 2.1 mmHg PV Mean Rajeev 0.60 m/s RVOT VTI 0.179 m PV Mean Grad 1.6 mmHg RVOT Mean Gr. 1.0 mmHg
== END 2024-02-06 00:50 ==
LOC: DI 00:31
PROVIDERS: PCP Family Medicine; Visit Provider Internal Medicine Cardiovascular Disease
DX: I31.39 Other pericardial effusion (noninflammatory) (principal); I35.0 Nonrheumatic aortic (valve) stenosis; I34.0 Nonrheumatic mitral (valve) insufficiency
CPT/HCPCS: 93306

== ENCOUNTER 2024-02-13 11:59 | Outpatient (CLI) | payer MEDICARE, SELFPAY ==
[2024-02-13 09:42] LABS: Abs Immature Grans 0.03 10^3/uL (0.0-0.06); Absolute Basophil Count 0.04 10^3/uL (0.0-0.2); Absolute Eosinophil Count 0.14 10^3/uL (0.0-0.7); Absolute Lymphocyte Count 1.93 10^3/uL (1.2-3.4); Absolute Monocyte Count 0.38 10^3/uL (0.1-0.8); Absolute Neutrophil Count 3.41 10^3/uL (1.2-6.7); Basophils % 0.7 %; Eosinophils % 2.4 %; HCT 38.8 % (36.0-46.0); HGB 12.9 g/dL (11.2-15.7); Immature Grans % 0.5 %; Lymphocytes % 32.5 %; MCH 32.3 pg (27.0-33.0); MCHC 33.2 % (32.0-36.0); MCV 97 fL (80-95); MPV 10.2 fL (8.0-11.0); Monocytes % 6.4 %; Neutrophils % 57.5 %; Platelet Count 281 10^3/uL (130-400); RDW-SD 46.5 fL; WBC 5.93 10^3/uL (4.4-10.8)
[2024-02-13 10:05] LABS: ALT 19 U/L (14-59); AST 14 U/L (15-37); Albumin 3.7 g/dL (3.4-5.0); Alkaline Phosphatase 64 U/L (46-116); Anion Gap 7.5 mmol/L (3-11); BUN 13 mg/dL (7-18); Bilirubin, Total 0.86 mg/dL (0.2-1.0); CO2 28.5 mmol/L (21.0-32.0); CREATININE 0.9 mg/dL (0.55-1.02); Calcium 9.5 mg/dL (8.5-10.1); Chloride 108 mmol/L (98-107); Estimated GFR 61.49 (mL/min/1.73m2); Glucose 99 mg/dL (74-106); Potassium 3.7 mmol/L (3.5-5.1); Sodium 144 mmol/L (136-145); Total Protein 7.5 g/dL (6.4-8.2)
== END 2024-02-13 12:00 | disposition home or self-care (01) ==
LOC: LBO 12:00
PROVIDERS: PCP Family Medicine; Visit Provider Internal Medicine
DX: I10 Essential (primary) hypertension (principal)
CPT/HCPCS: 36415; 80053; 85025

== ENCOUNTER 2024-03-08 15:05 | Outpatient (CLI) | payer MEDICARE, SELFPAY ==
[2024-03-08 14:40] LABS: Abs Immature Grans 0.01 10^3/uL (0.0-0.06); Absolute Basophil Count 0.03 10^3/uL (0.0-0.2); Absolute Eosinophil Count 0.09 10^3/uL (0.0-0.7); Absolute Lymphocyte Count 1.63 10^3/uL (1.2-3.4); Absolute Monocyte Count 0.41 10^3/uL (0.1-0.8); Absolute Neutrophil Count 3.62 10^3/uL (1.2-6.7); Basophils % 0.5 %; Eosinophils % 1.6 %; HCT 38.2 % (36.0-46.0); HGB 12.4 g/dL (11.2-15.7); Immature Grans % 0.2 %; Lymphocytes % 28.2 %; MCHC 32.5 % (32.0-36.0); MCV 99 fL (80-95); MPV 10.2 fL (8.0-11.0); Monocytes % 7.1 %; Neutrophils % 62.4 %; Platelet Count 235 10^3/uL (130-400); RBC 3.88 10^6/uL (3.93-5.22); RDW 12.9 % (11.7-14.6); WBC 5.79 10^3/uL (4.4-10.8)
[2024-03-08 15:45] LABS: ALT 25 U/L (14-59); AST 14 U/L (15-37); Albumin 3.6 g/dL (3.4-5.0); Alkaline Phosphatase 57 U/L (46-116); BUN 19 mg/dL (7-18); Calcium 9.6 mg/dL (8.5-10.1); Chloride 110 mmol/L (98-107); Estimated GFR 54.19 (mL/min/1.73m2); Glucose 105 mg/dL (74-106); Potassium 3.6 mmol/L (3.5-5.1); Sodium 147 mmol/L (136-145); Total Protein 7.2 g/dL (6.4-8.2)
== END 2024-03-08 15:06 | disposition home or self-care (01) ==
LOC: LBO 15:06
PROVIDERS: PCP Family Medicine; Visit Provider Internal Medicine
DX: E87.6 Hypokalemia (principal); Z86.2 Personal history of diseases of the blood and blood-forming organs and certain disorders involving the immune mechanism
CPT/HCPCS: 36415; 80053; 85025

== ENCOUNTER 2024-06-16 10:07 | Outpatient (CLI) | payer MEDICARE, SELFPAY ==
[2024-06-16 10:07] LABS: Abs Immature Grans 0.02 10^3/uL (0.0-0.06); Absolute Basophil Count 0.03 10^3/uL (0.0-0.2); Absolute Eosinophil Count 0.12 10^3/uL (0.0-0.7); Absolute Lymphocyte Count 1.42 10^3/uL (1.2-3.4); Absolute Monocyte Count 0.27 10^3/uL (0.1-0.8); Absolute Neutrophil Count 2.85 10^3/uL (1.2-6.7); Basophils % 0.6 %; Eosinophils % 2.5 %; HCT 35.9 % (36.0-46.0); Immature Grans % 0.4 %; Lymphocytes % 30.1 %; MCH 32.2 pg (27.0-33.0); MCHC 33.4 % (32.0-36.0); MCV 96 fL (80-95); MPV 9.6 fL (8.0-11.0); Monocytes % 5.7 %; Neutrophils % 60.7 %; Platelet Count 289 10^3/uL (130-400); RBC 3.73 10^6/uL (3.93-5.22); RDW 13.8 % (11.7-14.6); RDW-SD 48.5 fL; WBC 4.71 10^3/uL (4.4-10.8)
[2024-06-16 10:55] LABS: ALT 33 U/L (14-59); AST 20 U/L (15-37); Albumin 3.7 g/dL (3.4-5.0); Alkaline Phosphatase 58 U/L (46-116); Anion Gap 7.6 mmol/L (3-11); BUN 15 mg/dL (7-18); Bilirubin, Total 1.1 mg/dL (0.2-1.0); CO2 29.4 mmol/L (21.0-32.0); CREATININE 0.8 mg/dL (0.55-1.02); Calcium 9.5 mg/dL (8.5-10.1); Chloride 108 mmol/L (98-107); Estimated GFR 70.83 (mL/min/1.73m2); Glucose 106 mg/dL (74-106); Potassium 3.8 mmol/L (3.5-5.1); Sodium 145 mmol/L (136-145); Total Protein 7.3 g/dL (6.4-8.2)
== END 2024-06-16 10:08 | disposition home or self-care (01) ==
LOC: LBO 10:07
PROVIDERS: PCP Family Medicine; Visit Provider Internal Medicine
DX: I10 Essential (primary) hypertension (principal)
CPT/HCPCS: 36415; 80053; 85025

== ENCOUNTER 2024-11-15 07:30 | Outpatient (CLI) | payer MEDICARE, SELFPAY ==
[2024-11-15 11:11] LABS: Abs Immature Grans 0.01 10^3/uL (0.0-0.06); HCT 35.0 % (36.0-46.0); HGB 11.4 g/dL (11.2-15.7); Immature Grans % 0.2 %; MCH 31.2 pg (27.0-33.0); MCHC 32.6 % (32.0-36.0); MCV 96 fL (80-95); MPV 9.8 fL (8.0-11.0); Platelet Count 260 10^3/uL (130-400); RBC 3.65 10^6/uL (3.93-5.22); RDW 13.4 % (11.7-14.6); RDW-SD 46.8 fL; WBC 4.91 10^3/uL (4.4-10.8)
[2024-11-15 11:20] LABS: ESR 9 mm/hr (0-30)
[2024-11-15 11:59] LABS: Hemoglobin A1C 6.0 % (<5.7)
[2024-11-15 12:10] LABS: Iron 98 ug/dL (50-170); Total Iron Binding Capacity 300 ug/dL (250-450); Transferrin Sat 33 % (15-50)
[2024-11-15 12:27] LABS: ALT 23 U/L (14-59); AST 14 U/L (15-37); Albumin 3.7 g/dL (3.4-5.0); Alkaline Phosphatase 52 U/L (46-116); Anion Gap 8.6 mmol/L (3-11); BUN 16 mg/dL (7-18); Bilirubin, Total 1.2 mg/dL (0.2-1.0); CO2 29.4 mmol/L (21.0-32.0); Calcium 8.8 mg/dL (8.5-10.1); Calculated LDL 193 mg/dL (<100); Chloride 105 mmol/L (98-107); Cholesterol 272 mg/dL (<200); Estimated GFR 70.39 (mL/min/1.73m2); Ferritin 62 ng/mL (8-252); Folate 18.1 ng/mL (8.6-20.0); Glucose 110 mg/dL (74-106); HDL Cholesterol 59 mg/dL (>or=50); Potassium 3.7 mmol/L (3.5-5.1); Sodium 143 mmol/L (136-145); TSH 2.64 uIU/mL (0.36-3.74); Total Protein 7.3 g/dL (6.4-8.2); Triglyceride 104 mg/dL (<150); Vitamin B12 539 pg/mL (193-986); Vitamin D 25 Total 34 ng/mL (30-100)
[2024-11-15 12:44] LABS: Amylase 47 U/L (25-115); Lipase 32 U/L (<78); Uric Acid 5.1 mg/dL (2.6-6.0)
[2024-11-15 17:54] LABS: CRP, High Sensitivity 0.76 mg/L (See Note)
[2024-11-15 18:20] LABS: T3,Free 2.8 pg/mL (2.8-5.3)
[2024-11-16 11:04] LABS: Lyme Ab w Rflx to Lyme Confirm Positive (Negative)
[2024-11-16 11:53] LABS: Lyme IgG Ab Negative (Negative)
== END 2024-11-15 07:31 | disposition home or self-care (01) ==
LOC: LBO 11-16 07:30
PROVIDERS: PCP Family Medicine; Visit Provider Internal Medicine
DX: R73.01 Impaired fasting glucose (principal)
CPT/HCPCS: 36415; 80053; 80061; 82306; 83090; 83690; 85652; 86141; 86617; 82150; 82607; 82728; 82746; 83036; 83540; 83550; 83970; 84439; 84443; 84466; 84480; 84481; 84550; 85025; 86618